=== PATIENT | female | born 1955 | race Caucasian/White ===

== ENCOUNTER 2017-07-09 15:41 | Emergency (ER) | payer OTHER ==
[2017-07-09 15:45] VITALS: RESP 18; TEMP 98.3
[2017-07-09] MEDS ORDERED: oxyCODONE-APAP 5-325MG 1 EACH TAB PO STA (16:12)
--- NOTE | 2017-07-09 16:19 | ED ---
Extremity Problem HPI - General Chief complaint: Extremity Problem,Nontraumatic Stated complaint: Shoulder Pain, hand numbness Time Seen by Provider: 07/09/17 15:46 Source: patient Mode of arrival: wheelchair Limitations: no limitations - History of Present Illness Initial comments: 61-year-old female patient presents to the emergency department today for evaluation of right shoulder pain. Patient states that the pain is radiating down her arm. She states that this pain has been present for the last week. She denies any injury to the arm. Denies any history of similar pain. States he is having some tingling to her fingertips. She denies any neck pain or history of neck problems. States that she is out of her home pain medication has been for the last month. She generally takes Percocet. She does have a past medical history significant for MS but denies any similar symptoms with exacerbations. She denies any chest pain, shortness of breath, nausea, vomiting , dizziness, or weakness. Denies any fevers, chills, or sweats. Denies any rash. Patient denies any recent shortness breath, abdominal pain, diarrhea, constipation, back pain, hematuria, dysuria, urinary urgency, urinary frequency , headache, visual changes, or any other complaints. - Related Data Home Medications Medication Instructions Recorded Confirmed Folic Acid 1 mg PO DAILY 04/08/14 07/09/17 Aspirin EC [Ecotrin Low Dose] 81 mg PO HS 09/23/14 07/09/17 Pravastatin Sodium [Pravachol] 80 mg PO DAILY 04/12/15 07/09/17 Primidone [Mysoline] 50 mg PO BID 04/12/15 07/09/17 Albuterol Nebulized [Ventolin 2.5 mg INHALATION RT-Q4H PRN 04/13/15 07/09/17 Nebulized] Calcium Carb-Vit D 500Mg-200Un 1 tab PO DAILY 04/13/15 07/09/17 [Oscal 500+D] Thiamine [Vitamin B-1] 100 mg PO DAILY 04/13/15 07/09/17 lamoTRIgine [LaMICtal] 150 mg PO HS 04/13/15 07/09/17 ALPRAZolam [Xanax] 0.25 mg PO TID 09/07/15 07/09/17 oxyCODONE HCL/ACETAMINOPHEN 1 tab PO TID 09/07/15 07/09/17 [Oxycodone-Acetaminophen 5-325] ARIPiprazole [Abilify] 10 mg PO DAILY 03/11/17 07/09/17 Gabapentin [Neurontin] 300 mg PO TID 03/11/17 07/09/17 Baclofen [Lioresal] 10 mg PO BID 07/09/17 07/09/17 Butalb/APAP/Caff 50-325-40Mg 1 tab PO Q4H PRN 07/09/17 07/09/17 [Fioricet 50-325-40] Previous Rx's Medication Instructions Recorded Clopidogrel [Plavix] 75 mg PO DAILY #0 02/21/14 Metoprolol Tartrate [Lopressor] 12.5 mg PO BID #60 tab 01/27/15 Omeprazole [PriLOSEC] 20 mg PO AC-BRKFST capsule. 01/27/15 Amiodarone [Cordarone] 200 mg PO DAILY #0 03/13/17 Ipratropium-Albuterol Nebulize 3 ml INHALATION TID #90 ampul.neb 03/13/17 [Duoneb 0.5 mg-3 mg/3 ml Soln] Isosorbide Mononitrate ER [Imdur] 30 mg PO DAILY #30 tab 03/13/17 Levothyroxine Sodium [Synthroid] 100 mcg PO DAILY #30 tab 03/13/17 Nitroglycerin Sl Tabs [Nitrostat] 0.4 mg SUBLINGUAL Q5M PRN #25 tab 03/13/17 Hydrocodone/Acetaminophen [[place] 1 tab PO Q6HR PRN #12 tab 07/09/17 5-325] predniSONE 50 mg PO DAILY #5 tablet 07/09/17 Allergies Allergy/AdvReac Type Severity Reaction Status Date / Time Penicillins Allergy Swelling Verified 07/09/17 16:09 Review of Systems ROS Statement: Those systems with pertinent positive or pertinent negative responses have been documented in the HPI. ROS Other: All systems not noted in ROS Statement are negative. Past Medical History Past Medical History: Coronary Artery Disease (CAD), COPD, Fibromyalgia, Hyperlipidemia, Hypertension, Myocardial Infarction ([place]), Musculoskeletal Disorder, Osteoarthritis (OA), Skin Disorder, Thyroid Disorder Additional Past Medical History / Comment(s): Degenerative disc disease, MS not on medication, neuropathy, AICD, chronic respiratory failure with home O2 dependence at 2-3 L per nasal cannula, left leg cellulitus Last Myocardial Infarction Date:: 2012 History of Any Multi-Drug Resistant Organisms: ESBL Date of last positivie culture/infection: 02/18/2014 MDRO Source:: Blood and Urine E. coli ESBL Past Surgical History: AICD, Appendectomy, Heart Catheterization With Stent, Pacemaker Additional Past Surgical History / Comment(s): ruptured gastric ulcer with surgical repair. LT CATARACT Past Anesthesia/Blood Transfusion Reactions: No Reported Reaction Date of Last Stent Placement:: 2002 Type of Cardiac Device: Permanent Pacemaker, AICD Device Placement Date:: 2011 Past Psychological History: Anxiety, Bipolar, Depression, Panic Disorder Smoking Status: Former smoker Past Alcohol Use History: None Reported Past Drug Use History: None Reported - Past Family History Mother Family Medical History: Musculoskeletal Disorder Additional Family Medical History / Comment(s): MS Sister(s) Family Medical History: Myocardial Infarction ([place]) Additional Family Medical History / Comment(s): SISTER ALSO HAS MS General Exam Limitations: no limitations General appearance: alert, in no apparent distress, other (This is a well- developed, well-nourished adult female patient in no acute distress. Vital signs upon presentation are temperature 98.3F, pulse 62, respirations 18, blood pressure 122/65, pulse ox 94% on room air.) Eye exam: Present: normal appearance, PERRL, EOMI. Absent: scleral icterus, conjunctival injection, periorbital swelling ENT exam: Present: normal exam, normal oropharynx, mucous membranes moist Neck exam: Present: normal inspection, full ROM. Absent: tenderness, meningismus, lymphadenopathy Respiratory exam: Present: normal lung sounds bilaterally. Absent: respiratory distress, wheezes, rales, rhonchi, stridor Cardiovascular Exam: Present: regular rate, normal rhythm, normal heart sounds. Absent: systolic murmur, diastolic murmur, rubs, gallop, clicks Extremities exam: Present: normal inspection, full ROM (Increased pain with movement), tenderness (Right shoulder), normal capillary refill, other (Skin to the right upper extremities pink, warm, and dry. Cap refills less than 3 seconds. Radial pulses 2+ and equal bilaterally.). Absent: pedal edema, joint swelling, calf tenderness Neurological exam: Present: alert, oriented X3, CN II-XII intact Psychiatric exam: Present: normal affect, normal mood Skin exam: Present: warm, dry, intact, normal color. Absent: rash Course Vital Signs 07/09/17 07/09/17 15:42 17:05 Temperature 98.3 F Pulse Rate 62 56 L Respiratory 18 18 Rate Blood Pressure 122/65 137/85 O2 Sat by Pulse 94 L 97 Oximetry Medical Decision Making - Medical Decision Making 61-year-old female patient presented to the emergency department today for evaluation of right shoulder pain 1 week. Physical examination is unremarkable. Patient does have increased pain with movement and tenderness to palpation of the right shoulder. X-ray did show chronic degenerative changes of the right shoulder including chronic tendinopathy at the AC joint. There is a chronic ununited fracture of the right mid clavicular shaft. EKG showed sinus bradycardia with nonspecific ST and T-wave abnormalities. I did discuss findings and results with patient. She is feeling better after receiving Percocet here in the emergency department. She'll be discharged home with a prescription for [place] and prednisone. She is instructed to follow-up with her primary care physician for any further pain medication needs. She is instructed to return here immediately for any new, worsening, or concerning symptoms. She verbalizes understanding and agrees this plan. - EKG Data -: EKG Interpreted by Me EKG Comments: EKG shows sinus bradycardia with nonspecific ST and T-wave abnormalities. Ventricular rate is 54, MS interval 148, QR religion 98, QTC 494, QTC 468. No evidence of ST elevation or depression. - Radiology Data Radiology results: report reviewed, image reviewed 3 views of the right shoulder show chronic ununited fracture deformity of the medial right clavicular shaft. Mild degenerative change at the before meals joint. There is bony irregularity of the greater tuberosity. No acute fracture , subluxation, or dislocation seen. Impression by Dr. Almodovar shows chronic ununited fracture of the medial right clavicular shaft. Chronic rotator cuff tendinopathy and mild before meals joint osteoarthritis. No acute osseous abnormalities seen. Disposition Clinical Impression: Osteoarthritis of right shoulder, Shoulder pain Disposition: HOME SELF-CARE Condition: Good Instructions: Osteoarthritis (ED), Shoulder Pain (ED) Additional Instructions: Apply heat to the right shoulder. Take medications as directed. Take steroid full stomach. Follow-up with her primary care physician tomorrow. Return here immediately for any new, worsening, or concerning symptoms. Prescriptions: Hydrocodone/Acetaminophen [[place] 5-325] 1 tab PO Q6HR PRN #12 tab PRN Reason: Pain predniSONE 50 mg PO DAILY #5 tablet Referrals: Al Monet MD [Primary Care Provider] - 1-2 days Time of Disposition: 17:33
[2017-07-09 17:07] VITALS: BP 137/85; PULSE 56
--- NOTE | 2017-07-09 17:17 | XR ---
EXAMINATION TYPE: XR shoulder complete RT DATE OF EXAM: 07/09/2017 COMPARISON: NONE HISTORY: 61 year-old female shoulder pain for one week TECHNIQUE: 3 views FINDINGS: Chronic ununited fracture deformity of the medial right clavicular shaft. Mild degenerative change at the AC joint. There is bony irregularity at the greater tuberosity. No acute fracture, subluxation, or dislocation seen. IMPRESSION: 1. 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 2. Changes of chronic rotator cuff tendinopathy and mild AC joint OA. 3. No acute osseous abnormality seen.
== END 2017-07-09 17:54 | disposition home or self-care (01) ==
LOC: EC 15:41
DX: M19.011 Primary osteoarthritis, right shoulder (principal); R00.1 Bradycardia, unspecified; I25.10 Atherosclerotic heart disease of native coronary artery without angina pectoris; M79.7 Fibromyalgia; E78.5 Hyperlipidemia, unspecified; I25.2 Old myocardial infarction; F41.0 Panic disorder [episodic paroxysmal anxiety]; F32.9 Major depressive disorder, single episode, unspecified; Z95.0 Presence of cardiac pacemaker; Z95.5 Presence of coronary angioplasty implant and graft; Z87.891 Personal history of nicotine dependence; Z79.82 Long term (current) use of aspirin; Z79.891 Long term (current) use of opiate analgesic; Z79.899 Other long term (current) drug therapy; Z88.0 Allergy status to penicillin
CPT/HCPCS: 93005; 99283

== ENCOUNTER 2018-03-31 19:58 | Observation (INO) | payer OTHER ==
[2018-03-31] MEDS ORDERED: NITROGLYCERIN OINT 1 INCH/GM PACKET TOPICAL STA (20:02)
[2018-03-31] MEDS ORDERED: ASPIRIN 81 MG PO STA (20:02)
--- NOTE | 2018-03-31 20:05 | ED ---
General Adult HPI - General Source: RN notes reviewed <Jones Dewitt - Last Filed: 03/31/18 20:46> <Deangelo Dahl - Last Filed: 03/31/18 22:27> - General Stated complaint: Chest pain Time Seen by Provider: 03/31/18 19:58 - History of Present Illness Initial comments: This is a 62-year-old female who presents emergency Department with a past medical history significant for coronary artery disease to stent placements. Patient states she also smoked up until 4 years ago. Patient comes in today because she's been having intermittent chest pain since last evening. Patient states every time she takes a nitro it gets better but then the pain comes back per patient states she's taken 3 Nitrostat own and one in route. Patient states her pain currently is 5 out of 10. Patient denies any radiation of the pain. Patient states she is mildly short of breath. Patient denies any nausea. Patient denies any recent fever chills or cough per patient has any additional swelling to her legs. Patient denies any calf tenderness. Patient denies abdominal pain patient denies back pain (Jones Dewitt) - Related Data Home Medications Medication Instructions Recorded Confirmed Folic Acid 1 mg PO DAILY 04/08/14 03/31/18 Aspirin EC [Ecotrin Low Dose] 81 mg PO DAILY 09/23/14 03/31/18 Primidone [Mysoline] 50 mg PO BID 04/12/15 03/31/18 Albuterol Nebulized [Ventolin 2.5 mg INHALATION RT-QID PRN 04/13/15 03/31/18 Nebulized] Thiamine [Vitamin B-1] 100 mg PO DAILY 04/13/15 03/31/18 ALPRAZolam [Xanax] 0.25 mg PO TID 09/07/15 03/31/18 oxyCODONE HCL/ACETAMINOPHEN 1 tab PO TID 09/07/15 03/31/18 [Oxycodone-Acetaminophen 5-325] ARIPiprazole [Abilify] 10 mg PO DAILY 03/11/17 03/31/18 Gabapentin [Neurontin] 300 mg PO TID 03/11/17 03/31/18 Baclofen [Lioresal] 10 mg PO BID 07/09/17 03/31/18 Albuterol Inhaler [Ventolin Hfa 1 - 2 puff INHALATION RT-QID PRN 03/31/18 Inhaler] Metoprolol Tartrate [Lopressor] 12.5 mg PO HS 03/31/18 03/31/18 Previous Rx's Medication Instructions Recorded Clopidogrel [Plavix] 75 mg PO DAILY #0 02/21/14 Amiodarone [Cordarone] 200 mg PO DAILY #0 03/13/17 Levothyroxine Sodium [Synthroid] 100 mcg PO DAILY #30 tab 03/13/17 Nitroglycerin Sl Tabs [Nitrostat] 0.4 mg SUBLINGUAL Q5M PRN #25 tab 03/13/17 Allergies Allergy/AdvReac Type Severity Reaction Status Date / Time Penicillins Allergy Swelling Verified 03/31/18 21:11 Review of Systems ROS Other: All systems not noted in ROS Statement are negative. <Jones Dewitt - Last Filed: 03/31/18 20:46> ROS Other: All systems not noted in ROS Statement are negative. <Deangelo Dahl - Last Filed: 03/31/18 22:27> ROS Statement: Those systems with pertinent positive or pertinent negative responses have been documented in the HPI. Past Medical History Past Medical History: Coronary Artery Disease (CAD), COPD, Fibromyalgia, Hyperlipidemia, Hypertension, Myocardial Infarction ([place]), Musculoskeletal Disorder, Osteoarthritis (OA), Skin Disorder, Thyroid Disorder Additional Past Medical History / Comment(s): Degenerative disc disease, MS not on medication, neuropathy, AICD, chronic respiratory failure with home O2 dependence at 2-3 L per nasal cannula, left leg cellulitus Last Myocardial Infarction Date:: 2012 History of Any Multi-Drug Resistant Organisms: ESBL Date of last positivie culture/infection: 02/18/2014 MDRO Source:: Blood and Urine E. coli ESBL Past Surgical History: AICD, Appendectomy, Heart Catheterization With Stent, Pacemaker Additional Past Surgical History / Comment(s): ruptured gastric ulcer with surgical repair. LT CATARACT Past Anesthesia/Blood Transfusion Reactions: No Reported Reaction Date of Last Stent Placement:: 2002 Type of Cardiac Device: Permanent Pacemaker, AICD Device Placement Date:: 2011 Past Psychological History: Anxiety, Bipolar, Depression, Panic Disorder Smoking Status: Former smoker Past Alcohol Use History: None Reported Past Drug Use History: None Reported - Past Family History Mother Family Medical History: Musculoskeletal Disorder Additional Family Medical History / Comment(s): MS Sister(s) Family Medical History: Myocardial Infarction ([place]) Additional Family Medical History / Comment(s): SISTER ALSO HAS MS <DewittJones - Last Filed: 03/31/18 20:46> General Exam <Jones Dewitt - Last Filed: 03/31/18 20:46> <Deangelo Dahl - Last Filed: 03/31/18 22:27> - General Exam Comments Initial Comments: GENERAL: Patient is well-developed and well-nourished. Patient is nontoxic and well- hydrated and is in mild distress. ENT: Neck is soft and supple. No significant lymphadenopathy is noted. Oropharynx is clear. Moist mucous membranes. Neck has full range of motion without eliciting any pain. EYES: The sclera were anicteric and conjunctiva were pink and moist. Extraocular movements were intact and pupils were equal round and reactive to light. Eyelids were unremarkable. PULMONARY: Unlabored respirations. Good breath sounds bilaterally. No audible rales rhonchi or wheezing was noted. CARDIOVASCULAR: There is a regular rate and rhythm without any murmurs gallops or rubs. ABDOMEN: Soft and nontender with normal bowel sounds. No palpable organomegaly was noted. There is no palpable pulsatile mass. SKIN: Skin is clear with no lesions or rashes and otherwise unremarkable. NEUROLOGIC: Patient is alert and oriented x3. Cranial nerves II through XII are grossly intact. Motor and sensory are also intact. Normal speech, volume and content. Symmetrical smile. MUSCULOSKELETAL: Normal extremities with adequate strength and full range of motion. 1+ edema bilaterally LYMPHATICS: No significant lymphadenopathy is noted PSYCHIATRIC: Normal psychiatric evaluation. (Jones Dewitt) Vital Signs 03/31/18 03/31/18 03/31/18 20:03 20:10 20:30 Temperature 99.0 F Pulse Rate 65 Respiratory 18 Rate Blood Pressure 90/64 90/64 91/62 O2 Sat by Pulse 96 93 L 92 L Oximetry 03/31/18 03/31/18 20:40 21:00 Temperature Pulse Rate 80 Respiratory 18 Rate Blood Pressure 102/66 102/66 O2 Sat by Pulse 93 L Oximetry Medical Decision Making - Lab Data Result diagrams: 03/31/18 20:23 <Jones Dewitt - Last Filed: 03/31/18 20:46> - Lab Data Result diagrams: 03/31/18 20:23 03/31/18 20:23 <Deangelo Dahl - Last Filed: 03/31/18 22:27> - Medical Decision Making EKG shows normal sinus rhythm at 60 bpm NV interval is on a 34 QRS is 92 QT interval 438 QTC is 438. Patient's EKG shows Q waves in inferior leads and flattening of the T waves in leads V4 V5 and V6. Dr. Brumfield will be taking over the care of this patient at 9 PM (Jones Dewitt) Receive this patient has a sign out with the troponin pending. Dr. Dewitt had wanted patient to be admitted to have serial cardiac enzymes, telemetry monitoring and cardiology consultation. I did place the orders for admission. ( Deangelo Dahl) - Lab Data Lab Results 03/31/18 03/31/18 03/31/18 Range/Units 20:23 20:23 20:23 WBC 6.4 (3.8-10.6) k/uL RBC 3.67 L (3.80-5.40) m/uL Hgb 11.8 (11.4-16.0) gm/dL Hct 35.7 (34.0-46.0) % MCV 97.5 (80.0-100.0) fL MCH 32.3 (25.0-35.0) pg MCHC 33.1 (31.0-37.0) g/dL RDW 12.8 (11.5-15.5) % Plt Count 189 (150-450) k/uL Neutrophils % 71 % Lymphocytes % 19 % Monocytes % 6 % Eosinophils % 2 % Basophils % 0 % Neutrophils # 4.6 (1.3-7.7) k/uL Lymphocytes # 1.2 (1.0-4.8) k/uL Monocytes # 0.4 (0-1.0) k/uL Eosinophils # 0.1 (0-0.7) k/uL Basophils # 0.0 (0-0.2) k/uL PT (9.0-12.0) sec INR (<1.2) APTT (22.0-30.0) sec Sodium 134 L (137-145) mmol/L Potassium 4.1 (3.5-5.1) mmol/L Chloride 101 (98-107) mmol/L Carbon Dioxide 27 (22-30) mmol/L Anion Gap 6 mmol/L BUN 19 H (7-17) mg/dL Creatinine 0.77 (0.52-1.04) mg/dL Est GFR (CKD-EPI)AfAm >90 (>60 ml/min/1.73 sqM) Est GFR (CKD-EPI)NonAf 83 (>60 ml/min/1.73 sqM) Glucose 84 (74-99) mg/dL Calcium 8.6 (8.4-10.2) mg/dL Magnesium 1.7 (1.6-2.3) mg/dL Total Bilirubin 0.4 (0.2-1.3) mg/dL AST 27 (14-36) U/L ALT 24 (9-52) U/L Alkaline Phosphatase 91 (38-126) U/L Total Creatine Kinase 23 L (30-135) U/L CK-MB (CK-2) 0.7 (0.0-2.4) ng/mL CK-MB (CK-2) Rel Index 3.0 Troponin I <0.012 (0.000-0.034) ng/mL NT-Pro-B Natriuret Pep pg/mL Total Protein 5.4 L (6.3-8.2) g/dL Albumin 2.7 L (3.5-5.0) g/dL 03/31/18 03/31/18 Range/Units 20:23 20:23 WBC (3.8-10.6) k/uL RBC (3.80-5.40) m/uL Hgb (11.4-16.0) gm/dL Hct (34.0-46.0) % MCV (80.0-100.0) fL MCH (25.0-35.0) pg MCHC (31.0-37.0) g/dL RDW (11.5-15.5) % Plt Count (150-450) k/uL Neutrophils % % Lymphocytes % % Monocytes % % Eosinophils % % Basophils % % Neutrophils # (1.3-7.7) k/uL Lymphocytes # (1.0-4.8) k/uL Monocytes # (0-1.0) k/uL Eosinophils # (0-0.7) k/uL Basophils # (0-0.2) k/uL PT 12.5 H (9.0-12.0) sec INR 1.2 H (<1.2) APTT 20.9 L (22.0-30.0) sec Sodium (137-145) mmol/L Potassium (3.5-5.1) mmol/L Chloride (98-107) mmol/L Carbon Dioxide (22-30) mmol/L Anion Gap mmol/L BUN (7-17) mg/dL Creatinine (0.52-1.04) mg/dL Est GFR (CKD-EPI)AfAm (>60 ml/min/1.73 sqM) Est GFR (CKD-EPI)NonAf (>60 ml/min/1.73 sqM) Glucose (74-99) mg/dL Calcium (8.4-10.2) mg/dL Magnesium (1.6-2.3) mg/dL Total Bilirubin (0.2-1.3) mg/dL AST (14-36) U/L ALT (9-52) U/L Alkaline Phosphatase (38-126) U/L Total Creatine Kinase (30-135) U/L CK-MB (CK-2) (0.0-2.4) ng/mL CK-MB (CK-2) Rel Index Troponin I (0.000-0.034) ng/mL NT-Pro-B Natriuret Pep 1350 pg/mL Total Protein (6.3-8.2) g/dL Albumin (3.5-5.0) g/dL Disposition <Jones Dewitt - Last Filed: 03/31/18 20:46> Is patient prescribed a controlled substance at d/c from ED?: No <Deangelo Dahl - Last Filed: 03/31/18 22:27> Clinical Impression: Chest pain Disposition: ADMITTED IP TO THIS HOSP Condition: Good Referrals: Alexei Vera MD [Primary Care Provider] - 1-2 days
[2018-03-31] MEDS ORDERED: SODIUM CHLORIDE 0.9% 500 ML 500 ML IV STA (20:18)
[2018-03-31 20:43] LABS: Basophils % (A) 0 %; Eosinophils # (A) 0.1 k/uL (0-0.7); Eosinophils % (A) 2 %; HCT 35.7 % (34.0-46.0); HGB 11.8 gm/dL (11.4-16.0); Lymphocytes # (A) 1.2 k/uL (1.0-4.8); Lymphocytes % (A) 19 %; MCH 32.3 pg (25.0-35.0); MCHC 33.1 g/dL (31.0-37.0); MCV 97.5 fL (80.0-100.0); Mean Platelet Volume 7.4; Monocytes # (A) 0.4 k/uL (0-1.0); Monocytes % (A) 6 %; Neutrophils # (A) 4.6 k/uL (1.3-7.7); Neutrophils % (A) 71 %; Platelet Count 189 k/uL (150-450); RBC 3.67 m/uL (3.80-5.40); RDW 12.8 % (11.5-15.5); WBC 6.4 k/uL (3.8-10.6)
--- NOTE | 2018-03-31 20:51 | XR ---
EXAMINATION TYPE: XR chest 2V DATE OF EXAM: 03/31/2018 COMPARISON: March 11, 2017 HISTORY: Chest pain TECHNIQUE: Frontal and lateral views of the chest are obtained. FINDINGS: There is no heart failure nor confluent pneumonic infiltrate. Costophrenic angles are donnell r. There is left axillary pacemaker with the lead tip in the right ventricle. There is mild thoracic kyphosis. There is anterior wedging of T11 T7 vertebra. IMPRESSION: Old thoracic compression fractures. No active cardiopulmonary disease. No change.
[2018-03-31 20:54] LABS: ALT 24 U/L (9-52); AST 27 U/L (14-36); Albumin 2.7 g/dL (3.5-5.0); Alkaline Phosphatase 91 U/L (38-126); Anion Gap 6 mmol/L; Blood Urea Nitrogen 19 mg/dL (7-17); Calcium 8.6 mg/dL (8.4-10.2); Carbon Dioxide 27 mmol/L (22-30); Chloride 101 mmol/L (98-107); Glucose 84 mg/dL (74-99); Magnesium 1.7 mg/dL (1.6-2.3); Potassium 4.1 mmol/L (3.5-5.1); Sodium 134 mmol/L (137-145); Total Bilirubin 0.4 mg/dL (0.2-1.3); Total Protein 5.4 g/dL (6.3-8.2)
[2018-03-31 20:59] LABS: INR 1.2 (<1.2); Prothrombin Time 12.5 sec (9.0-12.0)
[2018-03-31 21:03] LABS: Creatine Kinase 23 U/L (30-135); Partial Thromboplastin Time 20.9 sec (22.0-30.0)
[2018-03-31 21:17] LABS: Creatine Kinase MB 0.7 ng/mL (0.0-2.4); Troponin I <0.012 ng/mL (0.000-0.034)
[2018-03-31] MEDS ORDERED: ALBUTEROL NEBULIZED 2.5 MG/3 ML INHALATION PRN (22:24)
[2018-04-01 00:19] VITALS: BMI 29.2
[2018-04-01] MEDS: oxyCODONE-APAP 5-325MG 1 EACH TAB PO PRN ×4 (01:46→22:31)
[2018-04-01 04:05] LABS: Creatine Kinase 27 U/L (30-135)
[2018-04-01 04:16] LABS: Creatine Kinase MB 0.8 ng/mL (0.0-2.4); Troponin I <0.012 ng/mL (0.000-0.034)
[2018-04-01] MEDS: LEVOTHYROXINE 100 MCG TAB PO SCH (05:16)
[2018-04-01] MEDS: ALPRAZolam 0.25 MG TAB PO SCH ×3 (08:51→22:31)
[2018-04-01] MEDS: GABAPENTIN 300 MG CAP PO SCH ×3 (08:51→20:22)
[2018-04-01] MEDS: THIAMINE 100 MG TAB PO SCH (08:51)
[2018-04-01] MEDS: AMIODARONE 200 MG TAB PO SCH (08:52)
[2018-04-01] MEDS: BACLOFEN 10 MG TAB PO SCH ×2 (08:52→20:22)
[2018-04-01] MEDS: PRIMIDONE 50 MG TAB PO SCH ×2 (08:52→20:22)
[2018-04-01] MEDS: CLOPIDOGREL 75 MG TAB PO SCH (08:52)
[2018-04-01] MEDS ORDERED: ASPIRIN 325 MG TAB PO SCH (09:00)
[2018-04-01 09:08] LABS: Cholesterol 118 mg/dL (<200); HDL Cholesterol 59 mg/dL (40-60); LDL Cholesterol,Calculated 48 mg/dL (0-99); Triglycerides 53 mg/dL (<150)
[2018-04-01 09:19] LABS: Creatine Kinase 22 U/L (30-135)
[2018-04-01 09:31] LABS: Creatine Kinase MB 0.8 ng/mL (0.0-2.4); Troponin I <0.012 ng/mL (0.000-0.034)
[2018-04-01] MEDS ORDERED: ONDANSETRON 4 MG/2 ML VIAL IVP PRN (10:03)
[2018-04-01 11:39] LABS: T4, Free (Free Thyroxine) 3.59 ng/dL (0.78-2.19)
[2018-04-01] MEDS: ARIPiprazole 10 MG TAB PO SCH (12:55)
[2018-04-01] MEDS: ISOSORBIDE MONONITRATE ER 30 MG TAB.ER.24H PO SCH (13:05)
[2018-04-01] MEDS: FOLIC ACID 1 MG TAB PO SCH (13:06)
--- NOTE | 2018-04-01 13:10 | HP ---
HISTORY AND PHYSICAL CHIEF COMPLAINT: Chest pain. HISTORY OF PRESENT ILLNESS: This is the first known admission for this 62-year-old white female with history of MS. She presented to the emergency room with chest pain which was not associated with shortness of breath, diaphoresis, etc. She has had a previous [facility] and she has a pacemaker. REVIEW OF SYSTEMS: She has had no CVAs, TIAs, change in vision or hearing, syncope, cough, hemoptysis, pulmonary disease, murmurs, fever, orthopnea, PND, etc. She has had no abdominal pain, vomiting and diarrhea, melena, hematochezia, jaundice, hepatitis, etc. Past medical history, family history, personal history, and social histories reveal that SHE IS ALLERGIC TO PENICILLIN. Surgically she has had surgery for appendectomy, peptic ulcer disease, and several on her feet. PHYSICAL EXAM: Vital signs are normal. Head, ears, eyes, nose, and throat were normal. She is pale. Neck veins not distended. Chest is clear. Cardiac exam is normal. Abdomen is soft and nontender. Extremities demonstrate erythema in the lower legs consistent with possible cellulitis. She was very pale. Neurologically she is intact. IMPRESSION: 1. Chest pain. 2. History of previous myocardial infarction. 3. Dorsal kyphosis. 4. Multiple sclerosis. PLAN: 1. Bed rest. 2. IV fluids. 3. Cardiology consult. 4. Free T4 and TSH. MMODL / IJN: [id number] /
--- NOTE | 2018-04-01 13:10 | PN ---
PROGRESS NOTE CHIEF COMPLAINT: Chest pain. HISTORY OF PRESENT ILLNESS: This lady is feeling better. She has not had any further pain. She awaits Cardiology evaluation. PHYSICAL EXAMINATION: Chest is clear. Cardiac exam is unremarkable. Abdomen is soft, nontender. IMPRESSION: 1. Chest pain. 2. Multiple sclerosis. PLAN: Await Cardiology evaluation. MMODL / IJN: [id number] /
--- NOTE | 2018-04-01 13:48 | P.CRDCN ---
History of Present Illness Consult date: 04/01/18 Reason for Consult (text): chest pain History of present illness: this is a 72-year-old female patient of Dr. Veliz with past medical history of myocardial infarction, ischemic heart disease with cardiomyopathy and stent placement in the right coronary artery. March 2017, patient presented with chest pain and underwent stress test which was negative. Patient now presents with complaints of midsternal lower area chest pain that started while she was at rest. She denies any radiation. She states she has chronic shortness of breath but no worsening. She may have had some nausea. She denies any palpitations. She took 2 nitroglycerin at home and then one was given by EMS and the chest pain is currently resolved. EKG reveals sinus mechanism with old infarct with no acute changes. Chest x-ray reveals no acute cardio pulmonary disease. Laboratory data review: WBC 6.4, hemoglobin 11.8, platelets 189, sodium 134, potassium 4.1, creatinine 0.77 , cardiac enzymes negative on 3 draws. Current cardiac medications include. At the time of my exam: CONSTITUTIONAL: Denies fever. Denies chills. EYES: Denies blurred vision. Denies vision changes. Denies eye pain. EARS, NOSE, MOUTH & THROAT: Denies headache. Denies sore throat. Denies ear pain. CARDIOVASCULAR: Denies chest pain. Denies shortness of breath. Denies orthopnea. Denies PND. Denies palpitations. RESPIRATORY: Denies cough. GASTROINTESTINAL: Denies abdominal pain. Denies diarrhea. Denies constipation. Denies nausea. Denies vomiting. MUSCULOSKELETAL: Denies myalgias. Complains of pain to the left elbow. INTEGUMENTARY: Denies pruitis. Denies rash. NEUROLOGIC: Denies numbness. Denies tingling. Denies weakness. PSYCHIATRIC: Denies anxiety. Denies depression. ENDOCRINE: Denies fatigue. Denies weight change. Denies polydipsia. Denies polyurina. GENITOURINARY: Denies burning, hematuria or urgency with micturation. HEMATOLOGIC: Denies history of anemia. Denies bleeding. Blood pressure [ ], heart rate [ ], afebrile, maintaining oxygen saturation on room air. GENERAL: This is a [ ] in no apparent distress at the time of my examination. HEENT: Head is atraumatic, normocephalic. Pupils are equal, round. Sclerae anicteric. Conjunctivae are clear. Mucous membranes of the mouth are moist. Neck is supple. There is no jugular venous distention. No carotid bruit is heard. LUNGS: Clear to auscultation no wheezes, rales or rhonchi. No chest wall tenderness is noted on palpation or with deep breathing. HEART: Regular rate and rhythm without murmurs, rubs or gallops. S1 and S2 heard. ABDOMEN: Soft, nontender. Bowel sounds are heard. No organomegaly noted. EXTREMITIES: No evidence of lower extremity edema and no calf tenderness noted. VASCULAR: Radial and dorsalis pedis pulses palpated, no evidence of clubbing. NEUROLOGIC: Patient is awake, alert and oriented x3. No focal neuro deficits. ASSESSMENT Chest pain, atypical. An acute coronary event has been ruled out. History of coronary artery diseasewith previous AR and stent in the RCA. Hypertension hyperlipidemia Ischemic heart disease with cardiomyopathy PLAN An acute coronary event has been ruled out. echocardiogram ordered aspirin will be changed to 81 mg Continue amiodarone 200 mg daily, Plavix 75 mg daily, Lopressor 12.5 mg at bedtime Thank you kindly for this consultation. Nurse Practitioner note has been reviewed, I agree with a documented findings and plan of care. Patient was seen and examined. Past Medical History Past Medical History: Coronary Artery Disease (CAD), COPD, Fibromyalgia, Hyperlipidemia, Hypertension, Myocardial Infarction (AR), Musculoskeletal Disorder, Osteoarthritis (OA), Skin Disorder, Thyroid Disorder Additional Past Medical History / Comment(s): Degenerative disc disease, MS not on medication, neuropathy, AICD, chronic respiratory failure with home O2 dependence at 2-3 L per nasal cannula, left leg cellulitus Last Myocardial Infarction Date:: 2012 History of Any Multi-Drug Resistant Organisms: ESBL Date of last positivie culture/infection: 02/18/2014 MDRO Source:: Blood and Urine E. coli ESBL Past Surgical History: AICD, Appendectomy, Heart Catheterization With Stent, Pacemaker Additional Past Surgical History / Comment(s): ruptured gastric ulcer with surgical repair. LT CATARACT Past Anesthesia/Blood Transfusion Reactions: No Reported Reaction Date of Last Stent Placement:: 2002 Type of Cardiac Device: Permanent Pacemaker, AICD Device Placement Date:: 2011 Smoking Status: Former smoker - Past Family History Mother Family Medical History: Musculoskeletal Disorder Additional Family Medical History / Comment(s): MS Sister(s) Family Medical History: Myocardial Infarction (AR) Additional Family Medical History / Comment(s): SISTER ALSO HAS MS Medications and Allergies Home Medications Medication Instructions Recorded Confirmed Type Clopidogrel [Plavix] 75 mg PO DAILY #0 02/21/14 03/31/18 Rx Folic Acid 1 mg PO DAILY 04/08/14 03/31/18 History Aspirin EC [Ecotrin Low Dose] 81 mg PO DAILY 09/23/14 03/31/18 History Primidone [Mysoline] 50 mg PO BID 04/12/15 03/31/18 History Albuterol Nebulized [Ventolin 2.5 mg INHALATION RT-QID PRN 04/13/15 03/31/18 History Nebulized] Thiamine [Vitamin B-1] 100 mg PO DAILY 04/13/15 03/31/18 History ALPRAZolam [Xanax] 0.25 mg PO TID 09/07/15 03/31/18 History oxyCODONE HCL/ACETAMINOPHEN 1 tab PO TID 09/07/15 03/31/18 History [Oxycodone-Acetaminophen 5-325] ARIPiprazole [Abilify] 10 mg PO DAILY 03/11/17 03/31/18 History Gabapentin [Neurontin] 300 mg PO TID 03/11/17 03/31/18 History Amiodarone [Cordarone] 200 mg PO DAILY #0 03/13/17 03/31/18 Rx Levothyroxine Sodium [Synthroid] 100 mcg PO DAILY #30 tab 03/13/17 03/31/18 Rx Nitroglycerin Sl Tabs [Nitrostat] 0.4 mg SUBLINGUAL Q5M PRN #25 tab 03/13/17 Rx Baclofen [Lioresal] 10 mg PO BID 07/09/17 03/31/18 History Albuterol Inhaler [Ventolin Hfa 1 - 2 puff INHALATION RT-QID PRN 03/31/18 History Inhaler] Metoprolol Tartrate [Lopressor] 12.5 mg PO HS 03/31/18 03/31/18 History Allergies Allergy/AdvReac Type Severity Reaction Status Date / Time Penicillins Allergy Swelling Verified 03/31/18 21:11 Physical Exam Vitals: Vital Signs Temp Pulse Pulse Resp BP BP Pulse Ox 04/01/18 09:12 97 04/01/18 03:21 98.2 F 65 18 115/63 97 04/01/18 00:11 98.6 F 60 18 114/73 96 03/31/18 23:57 98.7 F 03/31/18 23:41 66 18 122/73 97 03/31/18 22:00 67 18 108/66 96 03/31/18 21:00 80 18 102/66 93 L 03/31/18 20:40 102/66 03/31/18 20:30 91/62 92 L 03/31/18 20:10 90/64 93 L 03/31/18 20:03 99.0 F 65 18 90/64 96 Intake and Output 03/31/18 04/01/18 04/01/18 22:59 06:59 14:59 Other: Voiding Method Bedside Commode # Voids 1 Weight 70.307 kg 63 kg Results 03/31/18 20:23 03/31/18 20:23 Cardiac Enzymes 03/31/18 03/31/18 04/01/18 Range/Units 20:23 20:23 03:11 AST 27 (14-36) U/L CK-MB (CK-2) 0.7 0.8 (0.0-2.4) ng/mL Troponin I <0.012 <0.012 (0.000-0.034) ng/mL 04/01/18 Range/Units 08:21 AST (14-36) U/L CK-MB (CK-2) 0.8 (0.0-2.4) ng/mL Troponin I <0.012 (0.000-0.034) ng/mL Coagulation 03/31/18 Range/Units 20:23 PT 12.5 H (9.0-12.0) sec APTT 20.9 L (22.0-30.0) sec Lipids 04/01/18 Range/Units 08:21 Triglycerides 53 (<150) mg/dL Cholesterol 118 (<200) mg/dL HDL Cholesterol 59 (40-60) mg/dL CBC 03/31/18 Range/Units 20:23 WBC 6.4 (3.8-10.6) k/uL RBC 3.67 L (3.80-5.40) m/uL Hgb 11.8 (11.4-16.0) gm/dL Hct 35.7 (34.0-46.0) % Plt Count 189 (150-450) k/uL Comprehensive Metabolic Panel 03/31/18 Range/Units 20:23 Sodium 134 L (137-145) mmol/L Potassium 4.1 (3.5-5.1) mmol/L Chloride 101 (98-107) mmol/L Carbon Dioxide 27 (22-30) mmol/L BUN 19 H (7-17) mg/dL Creatinine 0.77 (0.52-1.04) mg/dL Glucose 84 (74-99) mg/dL Calcium 8.6 (8.4-10.2) mg/dL AST 27 (14-36) U/L ALT 24 (9-52) U/L Alkaline Phosphatase 91 (38-126) U/L Total Protein 5.4 L (6.3-8.2) g/dL Albumin 2.7 L (3.5-5.0) g/dL Current Medications Generic Name Dose Route Start Last Admin Trade Name Freq PRN Reason Stop Dose Admin Albuterol Sulfate 2.5 mg 03/31/18 22:24 Ventolin Nebulized INHALATION RT-QID PRN Shortness Of Breath Alprazolam 0.25 mg 04/01/18 09:00 04/01/18 08:51 Xanax PO 0.25 mg TID SID Administration Amiodarone HCl 200 mg 04/01/18 09:00 04/01/18 08:52 Cordarone PO 200 mg DAILY SID Administration Aripiprazole 10 mg 04/01/18 09:00 Abilify PO DAILY SID Aspirin 325 mg 04/01/18 09:00 04/01/18 08:51 Aspirin PO 325 mg DAILY SID Administration Baclofen 10 mg 04/01/18 09:00 04/01/18 08:52 Lioresal PO 10 mg BID SID Administration Clopidogrel Bisulfate 75 mg 04/01/18 09:00 04/01/18 08:52 Plavix PO 75 mg DAILY SID Administration Folic Acid 1 mg 04/01/18 12:00 Folic Acid PO DAILY@1200 SID Gabapentin 300 mg 04/01/18 09:00 04/01/18 08:51 Neurontin PO 300 mg TID SID Administration Levothyroxine Sodium 100 mcg 04/01/18 06:30 04/01/18 05:16 Synthroid PO 100 mcg DAILY@0630 SID Administration Metoprolol Tartrate 12.5 mg 04/01/18 21:00 Lopressor PO HS [facility] Nitroglycerin 0.4 mg 03/31/18 22:22 Nitrostat SUBLINGUAL Q5M PRN Chest Pain Ondansetron HCl 4 mg 04/01/18 10:03 Zofran IVP Q6HR PRN Nausea And Vomiting Oxycodone/Acetaminophen 1 each 04/01/18 09:00 04/01/18 08:56 Percocet 5-325 PO 1 each TID PRN Administration Pain Primidone 50 mg 04/01/18 09:00 04/01/18 08:52 Mysoline PO 50 mg BID SID Administration Sodium Chloride 10 ml 04/01/18 09:00 Saline Flush IV BID [facility] Thiamine HCl 100 mg 04/01/18 09:00 04/01/18 08:51 Vitamin B-1 PO 100 mg DAILY SID Administration Intake and Output 03/31/18 04/01/18 04/01/18 22:59 06:59 14:59 Other: Voiding Method Bedside Commode # Voids 1 Weight 70.307 kg 63 kg 03/31/18 20:23 03/31/18 20:23
[2018-04-01] MEDS: NITROGLYCERIN SL TABS 0.4 MG TAB SUBLINGUAL PRN (15:36)
[2018-04-01] MEDS: METOPROLOL TARTRATE 25 MG TAB PO SCH (20:22)
[2018-04-02] MEDS: LEVOTHYROXINE 100 MCG TAB PO SCH (06:17)
[2018-04-02] MEDS: oxyCODONE-APAP 5-325MG 1 EACH TAB PO PRN ×2 (06:17→18:44)
[2018-04-02] MEDS: ALPRAZolam 0.25 MG TAB PO SCH ×3 (08:32→23:32)
[2018-04-02] MEDS: ARIPiprazole 10 MG TAB PO SCH (08:32)
[2018-04-02] MEDS: ASPIRIN 81 MG PO SCH (08:32)
[2018-04-02] MEDS: BACLOFEN 10 MG TAB PO SCH ×2 (08:33→20:22)
[2018-04-02] MEDS: CLOPIDOGREL 75 MG TAB PO SCH (08:33)
[2018-04-02] MEDS: THIAMINE 100 MG TAB PO SCH (08:33)
[2018-04-02] MEDS: PRIMIDONE 50 MG TAB PO SCH ×2 (08:33→20:21)
[2018-04-02] MEDS: FOLIC ACID 1 MG TAB PO SCH (08:33)
[2018-04-02] MEDS: GABAPENTIN 300 MG CAP PO SCH ×3 (08:33→23:32)
[2018-04-02] MEDS: AMIODARONE 200 MG TAB PO SCH (08:33)
[2018-04-02] MEDS: ISOSORBIDE MONONITRATE ER 30 MG TAB.ER.24H PO SCH (08:33)
[2018-04-02] MEDS: NITROGLYCERIN SL TABS 0.4 MG TAB SUBLINGUAL PRN ×2 (11:14→11:19)
--- NOTE | 2018-04-02 14:55 | ECHOF ---
Referral Reason:heart disease MEASUREMENTS -------- HEIGHT: 152.4 cm WEIGHT: 62.6 kg BP: 145/75 IVSd: 1.1 cm (0.6 - 1.1) LVIDd: 4.1 cm (3.9 - 5.3) LVPWd: 1.1 cm (0.6 - 1.1) IVSs: 1.4 cm LVIDs: 2.9 cm LVPWs: 1.7 cm LA Diam: 3.4 cm (2.7 - 3.8) Ao Diam: 3.0 cm (2.0 - 3.7) LA Diam: 3.7 cm (2.7 - 3.8) MV EXCURSION: 11.800 mm (> 18.000) MV EF SLOPE: 46 mm/s (70 - 150) EPSS: 1.8 cm MV E Da: 0.28 m/s MV DecT: 330 ms MV A Da: 0.50 m/s MV E/A Ratio: 0.55 RAP: 5.00 mmHg RVSP: 11.51 mmHg FINDINGS -------- Paced rhythm. This was a techncally difficult study with suboptimal views, , Lumason utilized for enhancement of im ages. The left ventricular size is normal. Left ventricular wall thickness is normal. Overall left vent ricular systolic function is mild-moderately impaired with, an EF between 40 - 45 %. Inferiorlatera l Hypokinesis Inferior basal Hypokinesis The right ventricle is normal in size. The left atrial size is normal. The right atrial size is normal. 5.0mg OF Lumason UTLIZED: 2 OR MORE WALL SEGMENTS NOT VISUALIZED. There is mild aortic valve sclerosis. There is no evidence of aortic regurgitation. Mild mitral regurgitation is present. Mild tricuspid regurgitation present. There is no evidence of pulmonary hypertension. The right v entricular systolic pressure, as measured by Doppler, is 11.51mmHg. The pulmonic valve was not well visualized. The aortic root size is normal. There is no pericardial effusion. CONCLUSIONS -------- 1. This was a techncally difficult study with suboptimal views, , Lumason utilized for enhancement of images. 2. The left ventricular size is normal. 3. Left ventricular wall thickness is normal. 4. Overall left ventricular systolic function is mild-moderately impaired with, an EF between 40 - 45 %. 5. Inferiorlateral Hypokinesis 6. Inferior basal Hypokinesis 7. The right ventricle is normal in size. 8. The left atrial size is normal. 9. The right atrial size is normal. 10. 5.0mg OF Lumason UTLIZED: 2 OR MORE WALL SEGMENTS NOT VISUALIZED. 11. There is mild aortic valve sclerosis. 12. Mild mitral regurgitation is present. 13. Mild tricuspid regurgitation present. 14. There is no evidence of pulmonary hypertension. 15. The right ventricular systolic pressure, as measured by Doppler, is 11.51mmHg. 16. The pulmonic valve was not well visualized. 17. The aortic root size is normal. 18. There is no pericardial effusion. DIGITAL ANALYST: Sheila Bess RDCS
--- NOTE | 2018-04-02 15:04 | P.PN ---
Subjective Progress Note Date: 04/02/18 This is a 62-year-old female with history of known ischemic heart disease with previous stent placement, was admitted with atypical chest pains. Her cardiac enzymes have been negative. EKG did not reveal any acute changes. Patient had vague chest pain as today and took 2 nitroglycerin with some relief. Pain is gradually is improving. Echo Cardigan showed hypokinesis of the inferior segments with an ejection fraction of about 45%. We'll continue monitor her. If she doesn't have any chest pains over the last 24 hours, patient may be discharged home and have follow-up with Dr. Boyce. If she has any recurrence of chest pain, patient may need inpatient evaluation. Her EKG today showed sinus rhythm with evidence of old inferior wall CO and nonspecific changes in anterolateral leads, as before. Objective - Vital Signs Vital signs: Vital Signs Temp 97.2 F L 04/02/18 11:15 Pulse 68 04/02/18 14:57 Resp 16 04/02/18 14:57 BP 100/55 04/02/18 11:22 Pulse Ox 94 L 04/02/18 14:58 Intake & Output 04/01/18 04/02/18 04/02/18 18:59 06:59 18:59 Intake Total 460 480 Output Total 400 400 300 Balance 60 -400 180 Weight 63 kg Intake: Oral 460 480 Output: Urine 400 400 300 Other: Voiding Method Bedside Commode Bedside Commode # Voids 1 1 - Exam GENERAL EXAM: Patient is alert and oriented and doesn't appear to be in any acute distress HEENT: Normocephalic. Normal reaction of pupils, equal size, normal range of extraocular motion. No erythema or exudates in the throat. NECK: No masses, no nuchal rigidity. CHEST: No chest wall deformity. LUNGS: Equal air entry with no crackles or wheeze. HEART: S1 and S2 normal with no audible mumurs or gallops. Regular rhythm, femorals equal on both sides.. ABDOMEN: No hepatosplenomegaly, normal bowel sounds, no guarding or rigidity. SKIN: No rashes CENTRAL NERVOUS SYSTEM: No focal deficits. EXTREMITIES: No cyanosis, clubbing or edema. - Labs CBC & Chem 7: 03/31/18 20:23 03/31/18 20:23 Assessment and Plan (1) Chest pain Current Visit: Yes Status: Acute Code(s): R07.9 - CHEST PAIN, UNSPECIFIED SNOMED Code(s): 89328211 (2) CAD (coronary artery disease) Current Visit: No Status: Acute Code(s): I25.10 - ATHSCL HEART DISEASE OF [place] CORONARY ARTERY W/O ANG PCTRS SNOMED Code(s): 04367765 Plan: We'll continue to monitor her. Increase activity as tolerated. Patient doesn' t have any recurrence of chest pain, may be discharged home to have follow-up with Dr. Boyce. If she has any recurrence of chest pain, may need inpatient evaluation
[2018-04-02] MEDS ORDERED: NITROGLYCERIN SL TABS 0.4 MG TAB SUBLINGUAL PRN (15:10)
[2018-04-02] MEDS: PANTOPRAZOLE 40 MG TABLET PO SCH (16:25)
[2018-04-02] MEDS: METOPROLOL TARTRATE 25 MG TAB PO SCH (20:21)
--- NOTE | 2018-04-02 21:08 | PN ---
PROGRESS NOTE CHIEF COMPLAINT: Chest pain. HISTORY OF PRESENT ILLNESS: This lady is complaining of quite a bit of indigestion, but other than that she has been stable. REVIEW OF SYSTEMS: She has had no fever, chills, nausea, vomiting, etc. PHYSICAL EXAM: Blood pressure is 100/55 with a pulse of 68 and respirations are 16. In general, she appears to be pale, but in no acute distress. Head, ears, eyes, nose, mouth, and throat are normal. Chest is clear. The cardiac exam is normal and. Abdomen is soft and nontender. IMPRESSION: 1. Chest pain. 2. Mild anemia. 3. Multiple sclerosis. 4. History of coronary artery disease. PLAN: Protonix 40 mg b.i.d. and it sounds as though she is going to be cleared to go home tomorrow. MMODL / IJN: [id number] /
[2018-04-03 01:55] VITALS: RESP 17
[2018-04-03 04:25] VITALS: PULSE 70
[2018-04-03] MEDS: oxyCODONE-APAP 5-325MG 1 EACH TAB PO PRN (05:15)
[2018-04-03] MEDS: PANTOPRAZOLE 40 MG TABLET PO SCH (06:16)
[2018-04-03] MEDS ORDERED: LEVOTHYROXINE 50 MCG TAB PO SCH (06:30)
[2018-04-03 07:15] LABS: Anion Gap 5 mmol/L; Blood Urea Nitrogen 13 mg/dL (7-17); Calcium 8.1 mg/dL (8.4-10.2); Carbon Dioxide 29 mmol/L (22-30); Chloride 94 mmol/L (98-107); Glucose 92 mg/dL (74-99); Potassium 3.7 mmol/L (3.5-5.1); Sodium 128 mmol/L (137-145)
[2018-04-03] MEDS: ARIPiprazole 10 MG TAB PO SCH (07:54)
[2018-04-03] MEDS: GABAPENTIN 300 MG CAP PO SCH (07:54)
[2018-04-03] MEDS: ALPRAZolam 0.25 MG TAB PO SCH (07:54)
[2018-04-03] MEDS: ASPIRIN 81 MG PO SCH (07:54)
[2018-04-03] MEDS: THIAMINE 100 MG TAB PO SCH (07:54)
[2018-04-03] MEDS: CLOPIDOGREL 75 MG TAB PO SCH (07:54)
[2018-04-03] MEDS: PRIMIDONE 50 MG TAB PO SCH (07:55)
[2018-04-03] MEDS: ISOSORBIDE MONONITRATE ER 30 MG TAB.ER.24H PO SCH (07:55)
[2018-04-03] MEDS: AMIODARONE 200 MG TAB PO SCH (07:55)
[2018-04-03] MEDS: BACLOFEN 10 MG TAB PO SCH (07:55)
[2018-04-03 07:58] VITALS: BP 129/71; TEMP 97.2
[2018-04-03 08:42] LABS: Basophils % (A) 0 %; Eosinophils # (A) 0.1 k/uL (0-0.7); Eosinophils % (A) 2 %; HGB 11.5 gm/dL (11.4-16.0); Lymphocytes # (A) 1.3 k/uL (1.0-4.8); Lymphocytes % (A) 23 %; MCHC 32.8 g/dL (31.0-37.0); MCV 97.5 fL (80.0-100.0); Mean Platelet Volume 8.2; Monocytes # (A) 0.3 k/uL (0-1.0); Monocytes % (A) 6 %; Neutrophils # (A) 3.8 k/uL (1.3-7.7); Neutrophils % (A) 67 %; Platelet Count 192 k/uL (150-450); RBC 3.59 m/uL (3.80-5.40); RDW 12.7 % (11.5-15.5); WBC 5.7 k/uL (3.8-10.6)
[2018-04-03] MEDS ORDERED: ASPIRIN 81 MG PO SCH (09:00)
--- NOTE | 2018-04-03 12:55 | P.PN ---
Subjective Progress Note Date: 04/03/18 This is a 62-year-old female with history of known ischemic heart disease with previous stent placement, was admitted with atypical chest pains. Her cardiac enzymes have been negative. EKG did not reveal any acute changes. Patient had vague chest pain as today and took 2 nitroglycerin with some relief. Pain is gradually is improving. Echo Cardigan showed hypokinesis of the inferior segments with an ejection fraction of about 45%. We'll continue monitor her. If she doesn't have any chest pains over the last 24 hours, patient may be discharged home and have follow-up with Dr. Boyce. If she has any recurrence of chest pain, patient may need inpatient evaluation. Her EKG today showed sinus rhythm with evidence of old inferior wall MA and nonspecific changes in anterolateral leads, as before. 04/03/2018: This patient with history of ischemic heart disease admitted with atypical chest pain. For the last 24 hours, Patient hasn't had any recurrence of chest pain. Her lab values showed a mild hyponatremia. Patient is otherwise doing well and wants to go home. Patient is being discharged home to have follow-up with Dr. Boyce. She'll continue current medical therapy Objective - Vital Signs Vital signs: Vital Signs Temp 97.2 F L 04/03/18 07:50 Pulse 70 04/03/18 07:52 Resp 17 04/03/18 07:52 BP 129/71 04/03/18 07:50 Pulse Ox 95 04/03/18 07:50 Intake & Output 04/02/18 04/03/18 04/03/18 18:59 06:59 18:59 Intake Total 480 800 260 Output Total 300 Balance 180 800 260 Weight 63.4 kg Intake: Oral 480 800 260 Output: Urine 300 Other: Voiding Method Bedside Commode Bedside Commode Bedside Commode # Voids 1 2 - Exam GENERAL EXAM: Patient is alert and oriented and doesn't appear to be in any acute distress HEENT: Normocephalic. Normal reaction of pupils, equal size, normal range of extraocular motion. No erythema or exudates in the throat. NECK: No masses, no nuchal rigidity. CHEST: No chest wall deformity. LUNGS: Equal air entry with no crackles or wheeze. HEART: S1 and S2 normal with no audible mumurs or gallops. Regular rhythm, femorals equal on both sides.. ABDOMEN: No hepatosplenomegaly, normal bowel sounds, no guarding or rigidity. SKIN: No rashes CENTRAL NERVOUS SYSTEM: No focal deficits. EXTREMITIES: No cyanosis, clubbing or edema. - Labs CBC & Chem 7: 04/03/18 06:00 04/03/18 06:00 Labs: Abnormal Lab Results - Last 24 Hours (Table) 04/03/18 04/03/18 Range/Units 06:00 06:00 RBC 3.59 L (3.80-5.40) m/uL Sodium 128 L (137-145) mmol/L Chloride 94 L (98-107) mmol/L Calcium 8.1 L (8.4-10.2) mg/dL Assessment and Plan (1) Chest pain Status: Acute Code(s): R07.9 - CHEST PAIN, UNSPECIFIED SNOMED Code(s): 79260656 (2) CAD (coronary artery disease) Status: Acute Code(s): I25.10 - ATHSCL HEART DISEASE OF [place] CORONARY ARTERY W/O ANG PCTRS SNOMED Code(s): 07430016 Plan: Patient seemed to be stable today. No recurrence of chest pain. Wants to go home. Patient is being discharged to have follow-up with Dr. Boyce
--- NOTE | 2018-04-04 18:22 | DS ---
DISCHARGE SUMMARY DATE OF DISCHARGE: 04/03/2018 CHIEF COMPLAINT: Chest pain. HISTORY OF PRESENT ILLNESS AND PHYSICAL EXAMINATION: The details of this lady's history and physical can be found in the initial workup. LABORATORY STUDIES: While she was in the hospital she had laboratory studies, details of which can be found in the laboratory section of her chart. COURSE IN THE HOSPITAL: After admission she was placed on bedrest, started on intravenous fluids and had serial EKGs and enzymes. Because of her prior history of heart disease, she was seen and followed by Cardiology. It was felt that she was stable enough to be discharged on April 03, and she will return home on her usual activity, diet and medication, and she will follow up either with her own physician or with me. FINAL DIAGNOSES: 1. Chest pain. 2. Coronary artery disease. 3. Multiple sclerosis. OPERATIONS: None. CONSULTATIONS: Cardiology. She is improved. MMBOBBY / CESILIA: [id number] /
== END 2018-04-03 12:27 | disposition home or self-care (01) ==
LOC: EC 19:58 → 3SCARD 22:22
PROVIDERS: ADMIT Family Medicine; ATTEND Family Medicine
DX: R07.89 Other chest pain (principal); G35 Multiple sclerosis; I25.10 Atherosclerotic heart disease of native coronary artery without angina pectoris; I42.9 Cardiomyopathy, unspecified; E87.1 Hypo-osmolality and hyponatremia; M79.7 Fibromyalgia; J96.10 Chronic respiratory failure, unspecified whether with hypoxia or hypercapnia; J44.9 Chronic obstructive pulmonary disease, unspecified; Z99.81 Dependence on supplemental oxygen; I10 Essential (primary) hypertension; E78.5 Hyperlipidemia, unspecified; M19.90 Unspecified osteoarthritis, unspecified site; G62.9 Polyneuropathy, unspecified; M40.204 Unspecified kyphosis, thoracic region; F41.0 Panic disorder [episodic paroxysmal anxiety]; F31.9 Bipolar disorder, unspecified; F41.9 Anxiety disorder, unspecified; K30 Functional dyspepsia; D64.9 Anemia, unspecified; Z79.02 Long term (current) use of antithrombotics/antiplatelets; Z79.82 Long term (current) use of aspirin; Z79.890 Hormone replacement therapy; Z79.891 Long term (current) use of opiate analgesic; Z79.899 Other long term (current) drug therapy; Z88.0 Allergy status to penicillin; Z95.0 Presence of cardiac pacemaker; Z16.12 Extended spectrum beta lactamase (ESBL) resistance; I25.2 Old myocardial infarction; Z95.5 Presence of coronary angioplasty implant and graft; Z87.891 Personal history of nicotine dependence; Z95.810 Presence of automatic (implantable) cardiac defibrillator; Z90.49 Acquired absence of other specified parts of digestive tract; Z98.42 Cataract extraction status, left eye; Z87.11 Personal history of peptic ulcer disease; Z82.69 Family history of other diseases of the musculoskeletal system and connective tissue; Z82.49 Family history of ischemic heart disease and other diseases of the circulatory system
CPT/HCPCS: 96374; 96361; 99285; 36415; 94760; 93005; 84439; 83880; 80061; 80053; 80048; 84443; 82550 ×2; 82553 ×2; 83735; 84484 ×2; 85025 ×2; 85610; 85730; 71046; G0378 ×4; C8929; J2405; Q9950; 93306

== ENCOUNTER 2018-09-27 06:59 | Observation (INO) | payer OTHER ==
[2018-09-27] MEDS ORDERED: NITROGLYCERIN OINT 1 INCH/GM PACKET TOPICAL STA (07:08)
--- NOTE | 2018-09-27 07:13 | ED ---
Chest Pain HPI - General Chief Complaint: Chest Pain Stated Complaint: Chest pressure Time Seen by Provider: 09/27/18 07:00 Source: patient, EMS, RN notes reviewed Mode of arrival: EMS Limitations: no limitations - History of Present Illness Initial Comments: This is a 63-year-old female history of multiple medical problems including coronary artery disease and multiple sclerosis who states she started having anterior chest pain about 12 hours ago. He states it was fairly severe up to 8/10 severity pressure nature with some nausea. She fine called 911 and was brought to the hospital she received aspirin and nitroglycerin as well as some Zofran and route to. She felt improved and did drop down to about a 5 is starting to go back up again she states. She wasn't sure whether was an MS exacerbation versus coronary artery disease that she waited. No other modifying factors at this time. No cough or phlegm production no focal weakness is gen eralized weakness. MD Complaint: chest pain, other - Related Data Home Medications Medication Instructions Recorded Confirmed Folic Acid 1 mg PO DAILY 04/08/14 03/31/18 Aspirin EC [Ecotrin Low Dose] 81 mg PO DAILY 09/23/14 09/27/18 Primidone [Mysoline] 50 mg PO BID 04/12/15 03/31/18 Albuterol Nebulized [Ventolin 2.5 mg INHALATION RT-QID PRN 04/13/15 03/31/18 Nebulized] Thiamine [Vitamin B-1] 100 mg PO DAILY 04/13/15 03/31/18 ALPRAZolam [Xanax] 0.25 mg PO TID 09/07/15 09/27/18 oxyCODONE HCL/ACETAMINOPHEN 1 tab PO Q8H 09/07/15 09/27/18 [Oxycodone-Acetaminophen 5-325] ARIPiprazole [Abilify] 10 mg PO DAILY 03/11/17 03/31/18 Gabapentin [Neurontin] 300 mg PO TID 03/11/17 09/27/18 Baclofen [Lioresal] 10 mg PO BID 07/09/17 03/31/18 Albuterol Inhaler [Ventolin Hfa 1 - 2 puff INHALATION RT-QID PRN 03/31/18 09/27/18 Inhaler] Metoprolol Tartrate [Lopressor] 25 mg PO DAILY 03/31/18 09/27/18 Cholecalciferol (Vitamin D3) 2,000 unit PO DAILY 09/27/18 09/27/18 [Vitamin D3] Docusate [Colace] 100 mg PO DAILY 09/27/18 09/27/18 Ferrous Sulfate [Feosol] 325 mg PO BID 09/27/18 09/27/18 Fluticasone Nasal [place] [Flonase 2 spr EA NOSTRIL DAILY 09/27/18 09/27/18 Nasal [place]] Fluticasone/Salmeterol 1 puff INHALATION RT-DAILY 09/27/18 09/27/18 [Fluticasone-Salmeterol 113-14] Levothyroxine Sodium [Synthroid] 100 mcg PO DAILY 09/27/18 09/27/18 Loperamide HCl [Imodium A-D] 2 mg PO DAILY PRN 09/27/18 09/27/18 Meclizine [Antivert] 25 mg PO TID 09/27/18 09/27/18 Sodium Chloride Tab 1 gm PO BID 09/27/18 09/27/18 Previous Rx's Medication Instructions Recorded Clopidogrel [Plavix] 75 mg PO DAILY #0 02/21/14 Amiodarone [Cordarone] 200 mg PO DAILY #0 03/13/17 Isosorbide Mononitrate ER [Imdur] 30 mg PO DAILY #30 tab.er.24h 04/03/18 Nitroglycerin Sl Tabs [Nitrostat] 0.4 mg SUBLINGUAL Q5M PRN #20 tab 04/03/18 Pantoprazole [Protonix] 40 mg PO DAILY #30 tablet. 04/03/18 Allergies Allergy/AdvReac Type Severity Reaction Status Date / Time Penicillins Allergy Swelling Verified 09/27/18 08:13 Review of Systems ROS Statement: Those systems with pertinent positive or pertinent negative responses have been documented in the HPI. ROS Other: All systems not noted in ROS Statement are negative. EKG Findings - EKG Results: EKG: interpreted by DEDE, sinus rhythm (Sinus rhythm of 66 MS interval 166 QRS duration 66 QT/QTC 384/402 low-voltage QRS nonspecific inferior configuration. This is compared with EKG dated 04/01/18 showing no changes.) Past Medical History Past Medical History: Coronary Artery Disease (CAD), COPD, Fibromyalgia, Hyperlipidemia, Hypertension, Myocardial Infarction ([place]), Musculoskeletal Disorder, Osteoarthritis (OA), Skin Disorder, Thyroid Disorder Additional Past Medical History / Comment(s): Degenerative disc disease, MS not on medication, neuropathy, AICD, chronic respiratory failure with home O2 dependence at 2-3 L per nasal cannula, left leg cellulitus Last Myocardial Infarction Date:: 2012 History of Any Multi-Drug Resistant Organisms: ESBL Date of last positivie culture/infection: 02/18/2014 MDRO Source:: Blood and Urine E. coli ESBL Past Surgical History: AICD, Appendectomy, Heart Catheterization With Stent, Pacemaker Additional Past Surgical History / Comment(s): ruptured gastric ulcer with surgical repair. LT CATARACT Past Anesthesia/Blood Transfusion Reactions: No Reported Reaction Date of Last Stent Placement:: 2002 Type of Cardiac Device: Permanent Pacemaker, AICD Device Placement Date:: 2011 Past Psychological History: Anxiety, Bipolar, Depression, Panic Disorder Smoking Status: Former smoker Past Alcohol Use History: None Reported Past Drug Use History: None Reported - Past Family History Mother Family Medical History: Musculoskeletal Disorder Additional Family Medical History / Comment(s): MS Sister(s) Family Medical History: Myocardial Infarction ([place]) Additional Family Medical History / Comment(s): SISTER ALSO HAS MS General Exam - General Exam Comments Initial Comments: This a well-developed sec appearing female who is awake alert oriented 3 Limitations: no limitations General appearance: alert, anxious Head exam: Present: atraumatic, normocephalic, normal inspection Eye exam: Present: normal appearance, PERRL, EOMI. Absent: scleral icterus, conjunctival injection, periorbital swelling ENT exam: Present: normal exam, mucous membranes moist Neck exam: Present: normal inspection, full ROM, other. Absent: tenderness, meningismus, lymphadenopathy Respiratory exam: Present: normal lung sounds bilaterally. Absent: respiratory distress, wheezes, rales, rhonchi, stridor Cardiovascular Exam: Present: regular rate, normal rhythm, normal heart sounds. Absent: systolic murmur, diastolic murmur, rubs, gallop, clicks GI/Abdominal exam: Present: soft, normal bowel sounds. Absent: distended, tenderness, guarding, rebound, rigid Extremities exam: Present: normal inspection, full ROM, normal capillary refill. Absent: tenderness, pedal edema, joint swelling, calf tenderness Back exam: Present: normal inspection Neurological exam: Present: alert, oriented X3, CN II-XII intact, motor sensory deficit (Decreased range of motion to the extremities) Psychiatric exam: Present: normal affect, normal mood Skin exam: Present: warm, dry, intact, normal color. Absent: rash Course Vital Signs 09/27/18 07:00 Temperature 98.1 F Pulse Rate 69 Respiratory 18 Rate Blood Pressure 151/86 O2 Sat by Pulse 92 L Oximetry Chest Pain MDM - MDM I did rebound patient several occasions her pain was still persistent though EKG changes were not evident I did discuss the findings with her as well as with Dr. Bay the patient will be admitted with cardiology consultation. Critical Care Time Critical Care Time: Yes Critical Care Time: 31 minutes of critical care time which includes initial presentation with history physical labs x-rays discussed with paramedics regarding the findings reevaluate the patient again discuss with the patient the admitting physician review of old charting admission orders and documentation the above Disposition Clinical Impression: Unstable angina pectoris, Chest pain, Acute coronary syndrome Disposition: ADMITTED IP TO THIS HOSP Condition: Fair Referrals: Alexei Vera MD [Primary Care Provider] - 1-2 days
[2018-09-27] MEDS ORDERED: ACETAMINOPHEN TAB 325 MG TAB PO STA (07:45)
[2018-09-27 07:52] LABS: Basophils % (A) 0 %; Eosinophils % (A) 1 %; HCT 41.9 % (34.0-46.0); HGB 13.7 gm/dL (11.4-16.0); Lymphocytes # (A) 0.6 k/uL (1.0-4.8); Lymphocytes % (A) 8 %; MCHC 32.7 g/dL (31.0-37.0); MCV 97.9 fL (80.0-100.0); Mean Platelet Volume 7.7; Monocytes # (A) 0.3 k/uL (0-1.0); Monocytes % (A) 4 %; Neutrophils # (A) 6.2 k/uL (1.3-7.7); Neutrophils % (A) 86 %; Platelet Count 161 k/uL (150-450); RBC 4.28 m/uL (3.80-5.40); RDW 13.2 % (11.5-15.5); WBC 7.2 k/uL (3.8-10.6)
[2018-09-27 08:08] LABS: ALT 18 U/L (9-52); AST 17 U/L (14-36); African American GFR (CKD) >90 (>60 ml/min/1.73 sqM); Albumin 2.9 g/dL (3.5-5.0); Alkaline Phosphatase 63 U/L (38-126); Anion Gap 5 mmol/L; Blood Urea Nitrogen 13 mg/dL (7-17); Calcium 8.1 mg/dL (8.4-10.2); Carbon Dioxide 30 mmol/L (22-30); Chloride 99 mmol/L (98-107); Creatine Kinase 30 U/L (30-135); Glucose 103 mg/dL (74-99); Magnesium 1.6 mg/dL (1.6-2.3); Potassium 4.3 mmol/L (3.5-5.1); Sodium 134 mmol/L (137-145); Total Bilirubin 0.4 mg/dL (0.2-1.3); Total Protein 5.4 g/dL (6.3-8.2)
[2018-09-27 08:21] LABS: INR 1.4 (<1.2); Partial Thromboplastin Time 26.7 sec (22.0-30.0); Prothrombin Time 14.4 sec (9.0-12.0)
--- NOTE | 2018-09-27 08:27 | XR ---
EXAMINATION TYPE: XR chest 2V DATE OF EXAM: 09/27/2018 COMPARISON: 03/31/2018 HISTORY: 63-year-old female with chest pain TECHNIQUE: AP and lateral views FINDINGS: Heart borderline in size. Similar volume loss in the right hemithorax with rightward shift of the hea rt. Left anterior chest wall AICD generator with right ventricular lead. Mild interstitial prominence . Increased AP chest dimension may reflect underlying COPD. Some strandy atelectasis at the posterior base. No consolidation or pleural effusion otherwise seen. IMPRESSION: Chronic changes, possible underlying COPD. Borderline heart size. No acute change seen.
[2018-09-27] MEDS ORDERED: MORPHINE SULFATE 2 MG/ML SYRINGE IVP STA (09:18)
[2018-09-27] MEDS ORDERED: methylPREDNISolone SOD SUCCI 125 MG/2 ML VIAL IV STA (09:25)
[2018-09-27] MEDS ORDERED: NITROGLYCERIN SL TABS 0.4 MG TAB SUBLINGUAL PRN (09:28)
[2018-09-27] MEDS ORDERED: HEPARIN SODIUM,PORCINE 5,000 UNIT/ML 1 ML VIAL IV ONE (09:28)
[2018-09-27] MEDS ORDERED: ALBUTEROL NEBULIZED 2.5 MG/3 ML INHALATION PRN (09:29)
[2018-09-27] MEDS ORDERED: LOPERAMIDE 2 MG CAP PO PRN (09:29)
[2018-09-27] MEDS ORDERED: HEPARIN SOD,PORK IN 0.45% NACL 25,000 UNIT in 0.45% NACL 1 250ML.BAG IV SCH (09:30)
--- NOTE | 2018-09-27 09:33 | ED ---
Medical Decision Making - Lab Data Result diagrams: 09/27/18 07:40 09/27/18 07:40 Lab Results 09/27/18 09/27/18 09/27/18 Range/Units 07:40 07:40 07:40 WBC 7.2 (3.8-10.6) k/uL RBC 4.28 (3.80-5.40) m/uL Hgb 13.7 (11.4-16.0) gm/dL Hct 41.9 (34.0-46.0) % MCV 97.9 (80.0-100.0) fL MCH 32.0 (25.0-35.0) pg MCHC 32.7 (31.0-37.0) g/dL RDW 13.2 (11.5-15.5) % Plt Count 161 (150-450) k/uL Neutrophils % 86 % Lymphocytes % 8 % Monocytes % 4 % Eosinophils % 1 % Basophils % 0 % Neutrophils # 6.2 (1.3-7.7) k/uL Lymphocytes # 0.6 L (1.0-4.8) k/uL Monocytes # 0.3 (0-1.0) k/uL Eosinophils # 0.0 (0-0.7) k/uL Basophils # 0.0 (0-0.2) k/uL PT (9.0-12.0) sec INR (<1.2) APTT (22.0-30.0) sec Sodium 134 L (137-145) mmol/L Potassium 4.3 (3.5-5.1) mmol/L Chloride 99 (98-107) mmol/L Carbon Dioxide 30 (22-30) mmol/L Anion Gap 5 mmol/L BUN 13 (7-17) mg/dL Creatinine 0.62 (0.52-1.04) mg/dL Est GFR (CKD-EPI)AfAm >90 (>60 ml/min/1.73 sqM) Est GFR (CKD-EPI)NonAf >90 (>60 ml/min/1.73 sqM) Glucose 103 H (74-99) mg/dL Calcium 8.1 L (8.4-10.2) mg/dL Magnesium 1.6 (1.6-2.3) mg/dL Total Bilirubin 0.4 (0.2-1.3) mg/dL AST 17 (14-36) U/L ALT 18 (9-52) U/L Alkaline Phosphatase 63 (38-126) U/L Creatine Kinase 30 (30-135) U/L Troponin I (0.000-0.034) ng/mL NT-Pro-B Natriuret Pep 1800 pg/mL Total Protein 5.4 L (6.3-8.2) g/dL Albumin 2.9 L (3.5-5.0) g/dL 09/27/18 09/27/18 Range/Units 07:40 07:40 WBC (3.8-10.6) k/uL RBC (3.80-5.40) m/uL Hgb (11.4-16.0) gm/dL Hct (34.0-46.0) % MCV (80.0-100.0) fL MCH (25.0-35.0) pg MCHC (31.0-37.0) g/dL RDW (11.5-15.5) % Plt Count (150-450) k/uL Neutrophils % % Lymphocytes % % Monocytes % % Eosinophils % % Basophils % % Neutrophils # (1.3-7.7) k/uL Lymphocytes # (1.0-4.8) k/uL Monocytes # (0-1.0) k/uL Eosinophils # (0-0.7) k/uL Basophils # (0-0.2) k/uL PT 14.4 H (9.0-12.0) sec INR 1.4 H (<1.2) APTT 26.7 (22.0-30.0) sec Sodium (137-145) mmol/L Potassium (3.5-5.1) mmol/L Chloride (98-107) mmol/L Carbon Dioxide (22-30) mmol/L Anion Gap mmol/L BUN (7-17) mg/dL Creatinine (0.52-1.04) mg/dL Est GFR (CKD-EPI)AfAm (>60 ml/min/1.73 sqM) Est GFR (CKD-EPI)NonAf (>60 ml/min/1.73 sqM) Glucose (74-99) mg/dL Calcium (8.4-10.2) mg/dL Magnesium (1.6-2.3) mg/dL Total Bilirubin (0.2-1.3) mg/dL AST (14-36) U/L ALT (9-52) U/L Alkaline Phosphatase (38-126) U/L Creatine Kinase (30-135) U/L Troponin I <0.012 (0.000-0.034) ng/mL NT-Pro-B Natriuret Pep pg/mL Total Protein (6.3-8.2) g/dL Albumin (3.5-5.0) g/dL Disposition Clinical Impression: Unstable angina pectoris, Chest pain, Acute coronary syndrome Disposition: ADMITTED IP TO THIS HOSP Condition: Fair Referrals: Alexei Vera MD [Primary Care Provider] - 1-2 days
[2018-09-27] MEDS: oxyCODONE-APAP 5-325MG 1 EACH TAB PO SCH ×3 (11:09→23:39)
--- NOTE | 2018-09-27 12:01 | P.CRDCN ---
History of Present Illness History of present illness: This is a pleasant 63-year-old female past medical history significant for coronary artery disease status post stent placement to the RCA 2012 in the setting of myocardial infarction, ischemic cardiomyopathy status post AICD, history of VT arrest 2012, advanced COPD, multiple sclerosis, hypertension and dyslipidemia. She follows in the office with Dr. Veliz. We've been asked to see her in consultation secondary to chest discomfort. She states last night while sitting in her chair playing on her phone she felt a chest tightness in the anterior portion underneath her breasts bilaterally that tightened and wrapped around her chest with a squeezing sensation. No radiation to the arm, neck or jaw. She took aspirin and 3 sublingual nitroglycerin at home and the pain seemed to improve. She went to bed for the evening, slept all night without any further chest dicomfort. She woke up this morning with another episode of similar type chest discomfort. Associated with this chest discomfort she felt some mild shortness of breath, nausea and vomited a small amount of Pepsi she had just drank. Upon arrival to the emergency department the pain had subsided. She is seen and examined resting comfortably in bed in no acute distress with no chest pain, nausea or shortness of breath. EKG reveals sinus mechanism heart rate of 66, inferior T-wave abnormality noted. Chest x-ray reveals evidence of underlying COPD was noted acute cardiopulmonary process. Laboratory data reviewed, WBC 7.2, hemoglobin 13.7, platelets 161, sodium 134, potassium 4.3, creatinine 0.62, magnesium 1.6, cardiac enzymes negative 1, NTproBNP 1800. Current cardiac medications include amiodarone 200 mg daily, aspirin 81 mg daily, Plavix 75 mg daily, Imdur 30 mg daily, Lopressor 25 mg daily. Most recent echocardiogram obtained March 2018 reveals impaired LV systolic function with EF 40-45%, infero-lateral and infero-basal hypokinesia, mild MR and mild TR. At the time of my exam: CONSTITUTIONAL: Denies fever. Denies chills. EYES: Denies blurred vision. Denies vision changes. Denies eye pain. EARS, NOSE, MOUTH & THROAT: Denies headache. Denies sore throat. Denies ear pain. CARDIOVASCULAR: Denies chest pain. Denies shortness of breath. Denies orthopnea. Denies PND. Denies palpitations. RESPIRATORY: Denies cough. GASTROINTESTINAL: Denies abdominal pain. Denies diarrhea. Denies constipation. Denies nausea. Denies vomiting. MUSCULOSKELETAL: Denies myalgias. INTEGUMENTARY: Denies pruitis. Denies rash. NEUROLOGIC: Denies numbness. Denies tingling. Denies weakness. PSYCHIATRIC: Denies anxiety. Denies depression. ENDOCRINE: Denies fatigue. Denies weight change. Denies polydipsia. Denies polyurina. GENITOURINARY: Denies burning, hematuria or urgency with micturation. HEMATOLOGIC: Denies history of anemia. Denies bleeding. Blood pressure 151/86 heart rate 69 afebrile maintaining oxygen saturation on room air GENERAL: This is a 63-year-old female in no apparent distress at the time of my examination. HEENT: Head is atraumatic, normocephalic. Pupils are equal, round. Sclerae anicteric. Conjunctivae are clear. Mucous membranes of the mouth are moist. Neck is supple. There is no jugular venous distention. No carotid bruit is heard. LUNGS: Clear to auscultation no wheezes, rales or rhonchi. No chest wall tenderness is noted on palpation or with deep breathing. HEART: Regular rate and rhythm without murmurs, rubs or gallops. S1 and S2 heard. ABDOMEN: Soft, nontender. Bowel sounds are heard. No organomegaly noted. EXTREMITIES: No evidence of peripheral edema and no calf tenderness noted. VASCULAR: Radial and dorsalis pedis pulses palpated, no evidence of clubbing. NEUROLOGIC: Patient is awake, alert and oriented x3. ASSESSMENT Chest pain, atypical for angina. Pt is mostly wheelchair bound, pain is at rest. History of coronary artery disease s/p stent placement to RCA Ischemic cardiomyopathy s/p [employer] ICD placement History of ventricular tachycardia in the past maintained on amiodarone Hypertension Dyslipidemia COPD Multiple sclerosis Chronic nicotine dependence, quit 2 weeks ago PLAN Continue to obtain serial cardiac enzymes to rule out an acute coronary event. Obtain 2D echocardiogram and doppler study to assess cardiac structure and fun ction. Continue aspirin, plavix, amiodarone, imdur and lopressor as previously ordered. If enzymes are normal we will perform a stress test in the morning. NPO after midnight. Apply nitropaste for ongoing chest discomfort. Thank you kindly for this consultation. Nurse Practitioner note has been reviewed, I agree with a documented findings and plan of care. Patient was seen and examined. Past Medical History Past Medical History: Coronary Artery Disease (CAD), Chest Pain / Angina, Heart Failure, COPD, Eye Disorder, Fibromyalgia, GERD/Reflux, Hyperlipidemia, Hypertension, Myocardial Infarction (CT), Musculoskeletal Disorder, Neurologic Disorder, Osteoarthritis (OA), Pneumonia, Respiratory Disorder, Skin Disorder, Thyroid Disorder, Vascular Disorder Additional Past Medical History / Comment(s): 11/2012 CT with cardiac a rrest/vtach, chronic respiratory failure-uses home O2 prn 2-3L/NC, tracheobronchitis, tricuspid regurgitation, multiple sclerosis, neuropathy bilateral legs/feet, chronic back pain, DDD, migraines, bilateral carpal tunnel syndrome, past L/R rib fractures, past L hip fracture with surgery, PUD with u lcer rupture with surgery, peritonitis, pancreatitis, IBS/ ulcerative colitis, chronic anemia, UTIs, urinary incontinence, endometriosis, hypothyroid, R cataract and L eye cataract forming again, PVD, L leg cellulitis, Last Myocardial Infarction Date:: 2012 History of Any Multi-Drug Resistant Organisms: ESBL Date of last positivie culture/infection: 02/18/2014 MDRO Source:: Blood and Urine E. coli ESBL Past Surgical History: AICD, Appendectomy, Heart Catheterization, Heart Catheterization With Stent, Orthopedic Surgery, Pacemaker Additional Past Surgical History / Comment(s): Cardioversion, Laparotomy for ruptured gastric ulcer, R foot fracture with surgery, L hip fracture with surgery-has plate and screw, EGD, colonoscopies with bening polypectomy. Past Anesthesia/Blood Transfusion Reactions: No Reported Reaction Additional Past Anesthesia/Blood Transfusion Reaction / Comment(s): Pt has received blood in past without reaction. Date of Last Stent Placement:: 11/2012 Type of Cardiac Device: Permanent Pacemaker, AICD Device Placement Date:: 2012 Past Psychological History: Anxiety, Bipolar, Depression, Panic Disorder Additional Psychological History / Comment(s): pt. wouldn't stated she does'nt know how she ended up with a legal guardian shweta cooper.pt stated she lives at [facility] -has help come in to do cleaning,cooking,bathing. Smoking Status: Former smoker Past Alcohol Use History: None Reported Additional Past Alcohol Use History / Comment(s): hx. alcohol abuse-last drank 12 yrs. ago patient is a smoker one pack per day for 40 years and quit 15 days ago. She has history of marijuana use in the past but none at this time. She also has history of alcohol abuse but quit 12 years ago. She is currently living on her own and has home care and assistance and plan to return there at the time of discharge. Past Drug Use History: None Reported - Past Family History Mother Family Medical History: Musculoskeletal Disorder Additional Family Medical History / Comment(s): MS Sister(s) Family Medical History: Myocardial Infarction (CT) Additional Family Medical History / Comment(s): SISTER ALSO HAS MS Brother(s) Family Medical History: Musculoskeletal Disorder, Neurologic Disorder Additional Family Medical History / Comment(s): MS Father Additional Family Medical History / Comment(s): ETOH abuse, back surgery Medications and Allergies Home Medications Medication Instructions Recorded Confirmed Type Clopidogrel [Plavix] 75 mg PO DAILY #0 02/21/14 09/27/18 Rx Folic Acid 1 mg PO DAILY 04/08/14 09/27/18 History Aspirin EC [Ecotrin Low Dose] 81 mg PO DAILY 09/23/14 09/27/18 History Primidone [Mysoline] 50 mg PO BID 04/12/15 09/27/18 History Albuterol Nebulized [Ventolin 2.5 mg INHALATION RT-Q6H PRN 04/13/15 09/27/18 History Nebulized] Thiamine [Vitamin B-1] 100 mg PO DAILY 04/13/15 09/27/18 History ALPRAZolam [Xanax] 0.25 mg PO TID 09/07/15 09/27/18 History oxyCODONE HCL/ACETAMINOPHEN 1 tab PO Q8H 09/07/15 09/27/18 History [Oxycodone-Acetaminophen 5-325] ARIPiprazole [Abilify] 10 mg PO DAILY 03/11/17 09/27/18 History Gabapentin [Neurontin] 300 mg PO TID 03/11/17 09/27/18 History Amiodarone [Cordarone] 200 mg PO DAILY #0 03/13/17 09/27/18 Rx Baclofen [Lioresal] 10 mg PO BID 07/09/17 09/27/18 History Albuterol Inhaler [Ventolin Hfa 1 - 2 puff INHALATION RT-QID PRN 03/31/18 09/27/18 History Inhaler] Metoprolol Tartrate [Lopressor] 25 mg PO DAILY 03/31/18 09/27/18 History Isosorbide Mononitrate ER [Imdur] 30 mg PO DAILY #30 tab.er.24h 04/03/18 09/27/18 Rx Nitroglycerin Sl Tabs [Nitrostat] 0.4 mg SUBLINGUAL Q5M PRN #20 tab 04/03/18 09/27/18 Rx Pantoprazole [Protonix] 40 mg PO DAILY #30 tablet.dr 04/03/18 09/27/18 Rx Cholecalciferol (Vitamin D3) 2,000 unit PO DAILY 09/27/18 09/27/18 History [Vitamin D3] Docusate [Colace] 100 mg PO DAILY 09/27/18 09/27/18 History Ferrous Sulfate [Feosol] 325 mg PO BID 09/27/18 09/27/18 History Fluticasone Nasal [place] [Flonase 1 spr EA NOSTRIL DAILY 09/27/18 09/27/18 History Nasal [place]] Fluticasone/Salmeterol 1 puff INHALATION RT-Q12H 09/27/18 09/27/18 History [Fluticasone-Salmeterol 113-14] Levothyroxine Sodium [Synthroid] 100 mcg PO DAILY 09/27/18 09/27/18 History Loperamide HCl [Imodium A-D] 2 mg PO DAILY PRN 09/27/18 09/27/18 History Meclizine [Antivert] 25 mg PO TID 09/27/18 09/27/18 History Sodium Chloride Tab 1 gm PO BID 09/27/18 09/27/18 History Allergies Allergy/AdvReac Type Severity Reaction Status Date / Time Penicillins Allergy Swelling Verified 09/27/18 08:13 Physical Exam Vitals: Vital Signs Temp Pulse Pulse Resp BP BP Pulse Ox 09/27/18 10:37 98.1 F 62 18 144/87 97 09/27/18 10:00 63 18 131/80 98 09/27/18 09:30 160/95 99 09/27/18 09:00 148/91 100 09/27/18 08:30 155/90 99 09/27/18 08:00 162/97 09/27/18 07:30 156/89 99 09/27/18 07:03 90 L 09/27/18 07:00 98.1 F 69 18 151/86 92 L Intake and Output 09/26/18 09/27/18 09/27/18 22:59 06:59 14:59 Other: Weight 63.957 kg Results 09/27/18 07:40 09/27/18 07:40 Cardiac Enzymes 09/27/18 09/27/18 Range/Units 07:40 07:40 AST 17 (14-36) U/L Troponin I <0.012 (0.000-0.034) ng/mL Coagulation 09/27/18 Range/Units 07:40 PT 14.4 H (9.0-12.0) sec APTT 26.7 (22.0-30.0) sec CBC 09/27/18 Range/Units 07:40 WBC 7.2 (3.8-10.6) k/uL RBC 4.28 (3.80-5.40) m/uL Hgb 13.7 (11.4-16.0) gm/dL Hct 41.9 (34.0-46.0) % Plt Count 161 (150-450) k/uL Comprehensive Metabolic Panel 09/27/18 Range/Units 07:40 Sodium 134 L (137-145) mmol/L Potassium 4.3 (3.5-5.1) mmol/L Chloride 99 (98-107) mmol/L Carbon Dioxide 30 (22-30) mmol/L BUN 13 (7-17) mg/dL Creatinine 0.62 (0.52-1.04) mg/dL Glucose 103 H (74-99) mg/dL Calcium 8.1 L (8.4-10.2) mg/dL AST 17 (14-36) U/L ALT 18 (9-52) U/L Alkaline Phosphatase 63 (38-126) U/L Total Protein 5.4 L (6.3-8.2) g/dL Albumin 2.9 L (3.5-5.0) g/dL Current Medications Generic Name Dose Route Start Last Admin Trade Name Freq PRN Reason Stop Dose Admin Albuterol Sulfate 2.5 mg 09/27/18 09:29 Ventolin Nebulized INHALATION RT-Q6H PRN Shortness Of Breath Alprazolam 0.25 mg 09/27/18 16:00 Xanax PO TID [facility] Amiodarone HCl 200 mg 09/28/18 09:00 Cordarone PO DAILY [facility] Aripiprazole 10 mg 09/28/18 09:00 Abilify PO DAILY [facility] Aspirin 325 mg 09/28/18 09:00 Aspirin PO DAILY [facility] Baclofen 10 mg 09/27/18 21:00 Lioresal PO BID [facility] Budesonide/Formoterol Fumarate 1 puff 09/27/18 20:00 Symbicort 160-4.5 Mcg Inhaler INHALATION RT-Q12H [facility] Cholecalciferol 2,000 unit 09/28/18 09:00 Vitamin D3 (25 Mcg = 1000 Iu) PO DAILY [facility] Clopidogrel Bisulfate 75 mg 09/28/18 09:00 Plavix PO DAILY [facility] Docusate Sodium 100 mg 09/28/18 09:00 Colace PO DAILY [facility] Ferrous Sulfate 325 mg 09/27/18 21:00 Feosol PO BID [facility] Fluticasone Propionate 1 spray 09/28/18 09:00 Flonase Nasal [place] EA NOSTRIL DAILY [facility] Folic Acid 1 mg 09/28/18 09:00 Folic Acid PO DAILY [facility] Gabapentin 300 mg 09/27/18 16:00 Neurontin PO TID [facility] Heparin Sodium/Sodium Chloride 250 mls @ 7.675 mls/hr 09/27/18 09:30 09/27/18 10:04 25,000 unit/ Sodium Chloride IV 12 units/kg/hr .Q24H SID 7.675 mls/hr Administration Protocol 12 UNITS/KG/HR Isosorbide Mononitrate 30 mg 09/28/18 09:00 Imdur PO DAILY [facility] Levothyroxine Sodium 100 mcg 09/28/18 06:30 [place]throid PO 0630 [facility] Loperamide HCl 2 mg 09/27/18 09:29 Imodium PO DAILY PRN Loose Stool Meclizine HCl 25 mg 09/27/18 16:00 Antivert PO TID [facility] Methylprednisolone Sodium Succinate 60 mg 09/27/18 16:00 Solu-Medrol IV Q6HR [facility] Metoprolol Tartrate 25 mg 09/28/18 09:00 Lopressor PO DAILY [facility] Nitroglycerin 0.5 inch 09/27/18 12:00 Nitro-Bid Oint TOPICAL Q6HR [facility] Nitroglycerin 0.4 mg 09/27/18 09:28 Nitrostat SUBLINGUAL Q5M PRN Chest Pain Oxycodone/Acetaminophen 1 each 09/27/18 10:00 Percocet 5-325 PO Q8HR [facility] Pantoprazole Sodium 40 mg 09/28/18 09:00 Protonix PO DAILY [facility] Primidone 50 mg 09/27/18 21:00 Mysoline PO BID [facility] Sodium Chloride 1 gm 09/27/18 21:00 Sodium Chloride Tab PO BID [facility] Thiamine HCl 100 mg 09/28/18 09:00 Vitamin B-1 PO DAILY [facility] Intake and Output 09/26/18 09/27/18 09/27/18 22:59 06:59 14:59 Other: Weight 63.957 kg Patient Weight 09/28/18 06:59 Weight 63.957 kg 09/27/18 07:40 09/27/18 07:40
[2018-09-27] MEDS: NITROGLYCERIN OINT 1 INCH/GM PACKET TOPICAL SCH ×3 (13:37→23:40)
[2018-09-27] MEDS ORDERED: methylPREDNISolone SOD SUCCI 125 MG/2 ML VIAL IV SCH (16:00)
[2018-09-27] MEDS: MECLIZINE 25 MG TAB PO SCH ×2 (16:57→20:18)
[2018-09-27] MEDS: GABAPENTIN 300 MG CAP PO SCH ×2 (16:57→20:18)
[2018-09-27] MEDS: ALPRAZolam 0.25 MG TAB PO SCH ×2 (16:57→20:18)
[2018-09-27] MEDS: SYMBICORT 160-4.5 MCG INHALER INHALATION SCH (20:02)
--- NOTE | 2018-09-27 20:12 | P.HPIM ---
History of Present Illness H&P Date: 09/27/18 Chief Complaint: Chest pain History of present complaint: This is a 63-year-old patient who follows with visiting physicians Dr. Vera. Patient has a rather extensive medical history. Normally uses a wheelchair or a walker to get about. Has known coronary artery disease. Patient presents with about 12 hours of chest pain going across the chest below both the breasts. Fel t like a pressure-like sensation. Some shortness of breath. No dizziness or lightheadedness. No cough or shortness of breath. Not radiate to the arm or neck. Some perspiration. Finally decided to come to the ER. Admitted for unstable angina. Patient is better right now. When I saw this patient this morning. Cardiology was consulted. Review of systems: GEN.: Tired EYES: None HEENT: None NECK: None RESPIRATORY: None CARDIOVASCULAR: As above GASTROINTESTINAL: None GENITOURINARY: Urinary incontinence MUSCULOSKELETAL: Pain in the joints] LYMPHATICS: None HEMATOLOGICAL: None PSYCHIATRY: None NEUROLOGICAL: Chronic weakness in the legs uses a wheelchair or a walker] Physical examination: VITAL SIGNS: 98.1, 69, 18, 151/86, 92% room air GENERAL: Average built, sitting up, comfortable. EYES: Pupils equal. Conjunctiva normal. HEENT: External appearance of nose and ears normal, oral cavity grossly normal. NECK: JVD not raised; masses not palpable. HEART: First and second heart sounds are normal; no edema. LUNGS: Respiratory rate increased, decreased breath sounds. ABDOMEN: Soft, nontender, liver spleen not palpable, no masses palpable. LYMPHATICS: No lymph nodes palpable in the axilla and neck. PSYCH: Alert and oriented x3; mood and affect normal. NEUROLOGICAL: [Cranial nerves grossly intact; no facial asymmetry, decreased power in the lower extremity. Investigations: White count 7.2 hemoglobin 13.7 potassium 4.3 BUN 13 creatinine 0.62 Troponin 2 negative EKG-tracing personally reviewed by me shows some ST segment changes in inferior and anterior leads Chest x-ray film personally reviewed by me shows some chronic changes, some pulling of the mediastinum to the right r with patient turned to the right . X- ray report noted Assessment: -Unstable angina in a known patient with coronary artery disease -Coronary artery disease -COPD in an ex-smoker -Chronic fibromyalgia -GERD -Hyperlipidemia -Essential hypertension -Primary osteoarthritis -Hypothyroid -Chronic multiple sclerosis -Peripheral neuropathy both the lower extremity -Chronic urinary incontinence -Chronic kidney dysfunction uses a walker/wheelchair Plan: Home medications are resumed. Patient's is on aspirin and beta blockers and IV heparin. Care was discussed with the patient. Questions were answered. Cardiology was consulted. Planning for stress test tomorrow morning. Past Medical History Past Medical History: Coronary Artery Disease (CAD), Chest Pain / Angina, Heart Failure, COPD, Eye Disorder, Fibromyalgia, GERD/Reflux, Hyperlipidemia, Hypertension, Myocardial Infarction (CA), Musculoskeletal Disorder, Neurologic Disorder, Osteoarthritis (OA), Pneumonia, Respiratory Disorder, Skin Disorder, Thyroid Disorder, Vascular Disorder Additional Past Medical History / Comment(s): 11/2012 CA with cardiac arrest /vtach, chronic respiratory failure-uses home O2 prn 2-3L/NC, tracheobronchitis, tricuspid regurgitation, multiple sclerosis, neuropathy bilateral legs/feet, chronic back pain, DDD, migraines, bilateral carpal tunnel syndrome, past L/R rib fractures, past L hip fracture with surgery, PUD with ulcer rupture with surgery, peritonitis, pancreatitis, IBS/ ulcerative colitis, chronic anemia, UTIs, urinary incontinence, endometriosis, hypothyroid, R cataract and L eye cataract forming again, PVD, L leg cellulitis, Last Myocardial Infarction Date:: 2012 History of Any Multi-Drug Resistant Organisms: ESBL Date of last positivie culture/infection: 02/18/2014 MDRO Source:: Blood and Urine E. coli ESBL Past Surgical History: AICD, Appendectomy, Heart Catheterization, Heart Ca theterization With Stent, Orthopedic Surgery, Pacemaker Additional Past Surgical History / Comment(s): Cardioversion, Laparotomy for ruptured gastric ulcer, R foot fracture with surgery, L hip fracture with surgery-has plate and screw, EGD, colonoscopies with bening polypectomy. Past Anesthesia/Blood Transfusion Reactions: No Reported Reaction Additional Past Anesthesia/Blood Transfusion Reaction / Comment(s): Pt has rece ived blood in past without reaction. Date of Last Stent Placement:: 11/2012 Type of Cardiac Device: Permanent Pacemaker, AICD Device Placement Date:: 2012 Past Psychological History: Anxiety, Bipolar, Depression, Panic Disorder Additional Psychological History / Comment(s): pt. wouldn't stated she does'nt know how she ended up with a legal guardian shweta cooper.pt stated she lives at [facility] -has help come in to do cleaning,cooking,bathing. Smoking Status: Former smoker Past Alcohol Use History: None Reported Additional Past Alcohol Use History / Comment(s): hx. alcohol abuse-last drank 12 yrs. ago patient is a smoker one pack per day for 40 years and quit 15 days ago. She has history of marijuana use in the past but none at this time. She also has history of alcohol abuse but quit 12 years ago. She is currently living on her own and has home care and assistance and plan to return there at the time of discharge. Past Drug Use History: None Reported - Past Family History Mother Family Medical History: Musculoskeletal Disorder Additional Family Medical History / Comment(s): MS Sister(s) Family Medical History: Myocardial Infarction (CA) Additional Family Medical History / Comment(s): SISTER ALSO HAS MS Brother(s) Family Medical History: Musculoskeletal Disorder, Neurologic Disorder Additional Family Medical History / Comment(s): MS Father Additional Family Medical History / Comment(s): ETOH abuse, back surgery Medications and Allergies Home Medications Medication Instructions Recorded Confirmed Type Clopidogrel [Plavix] 75 mg PO DAILY #0 02/21/14 09/27/18 Rx Folic Acid 1 mg PO DAILY 04/08/14 09/27/18 History Aspirin EC [Ecotrin Low Dose] 81 mg PO DAILY 09/23/14 09/27/18 History Primidone [Mysoline] 50 mg PO BID 04/12/15 09/27/18 History Albuterol Nebulized [Ventolin 2.5 mg INHALATION RT-Q6H PRN 04/13/15 09/27/18 History Nebulized] Thiamine [Vitamin B-1] 100 mg PO DAILY 04/13/15 09/27/18 History ALPRAZolam [Xanax] 0.25 mg PO TID 09/07/15 09/27/18 History oxyCODONE HCL/ACETAMINOPHEN 1 tab PO Q8H 09/07/15 09/27/18 History [Oxycodone-Acetaminophen 5-325] ARIPiprazole [Abilify] 10 mg PO DAILY 03/11/17 09/27/18 History Gabapentin [Neurontin] 300 mg PO TID 03/11/17 09/27/18 History Amiodarone [Cordarone] 200 mg PO DAILY #0 03/13/17 09/27/18 Rx Baclofen [Lioresal] 10 mg PO BID 07/09/17 09/27/18 History Albuterol Inhaler [Ventolin Hfa 1 - 2 puff INHALATION RT-QID PRN 03/31/18 09/27/18 History Inhaler] Metoprolol Tartrate [Lopressor] 25 mg PO DAILY 03/31/18 09/27/18 History Isosorbide Mononitrate ER [Imdur] 30 mg PO DAILY #30 tab.er.24h 04/03/18 09/27/18 Rx Nitroglycerin Sl Tabs [Nitrostat] 0.4 mg SUBLINGUAL Q5M PRN #20 tab 04/03/18 09/27/18 Rx Pantoprazole [Protonix] 40 mg PO DAILY #30 tablet.dr 04/03/18 09/27/18 Rx Cholecalciferol (Vitamin D3) 2,000 unit PO DAILY 09/27/18 09/27/18 History [Vitamin D3] Docusate [Colace] 100 mg PO DAILY 09/27/18 09/27/18 History Ferrous Sulfate [Feosol] 325 mg PO BID 09/27/18 09/27/18 History Fluticasone Nasal [place] [Flonase 1 spr EA NOSTRIL DAILY 09/27/18 09/27/18 History Nasal [place]] Fluticasone/Salmeterol 1 puff INHALATION RT-Q12H 09/27/18 09/27/18 History [Fluticasone-Salmeterol 113-14] Levothyroxine Sodium [Synthroid] 100 mcg PO DAILY 09/27/18 09/27/18 History Loperamide HCl [Imodium A-D] 2 mg PO DAILY PRN 09/27/18 09/27/18 History Meclizine [Antivert] 25 mg PO TID 09/27/18 09/27/18 History Sodium Chloride Tab 1 gm PO BID 09/27/18 09/27/18 History Allergies Allergy/AdvReac Type Severity Reaction Status Date / Time Penicillins Allergy Swelling Verified 09/27/18 08:13 Physical Exam Vitals: Vital Signs Temp Pulse Pulse Resp BP BP Pulse Ox 09/27/18 19:50 98.1 F 72 18 124/77 88 L 09/27/18 16:00 16 09/27/18 15:36 97.7 F 64 16 125/79 90 L 09/27/18 12:00 18 09/27/18 10:37 98.1 F 62 18 144/87 97 09/27/18 10:00 63 18 131/80 98 09/27/18 09:30 160/95 99 09/27/18 09:00 148/91 100 09/27/18 08:30 155/90 99 09/27/18 08:00 162/97 09/27/18 07:30 156/89 99 09/27/18 07:03 90 L 09/27/18 07:00 98.1 F 69 18 151/86 92 L Intake and Output 09/27/18 09/27/18 09/27/18 06:59 14:59 22:59 Intake Total 61.528 Balance 61.528 Intake: Intake, IV Titration 61.528 Amount Heparin Sod,Pork in 0.45% 61.528 NaCl 25,000 unit In 0.45 % NaCl 1 250ml.bag @ 12 UNITS/KG/HR 7.675 mls/hr IV .Q24H [facility] Rx#: [id number] Other: Voiding Method Toilet Toilet # Voids 1 7 Weight 63.957 kg Results CBC & Chem 7: 09/27/18 07:40 09/27/18 07:40 Labs: Abnormal Lab Results - Last 24 Hours (Table) 09/27/18 09/27/18 09/27/18 Range/Units 07:40 07:40 07:40 Lymphocytes # 0.6 L (1.0-4.8) k/uL PT 14.4 H (9.0-12.0) sec INR 1.4 H (<1.2) APTT (22.0-30.0) sec Sodium 134 L (137-145) mmol/L Glucose 103 H (74-99) mg/dL Calcium 8.1 L (8.4-10.2) mg/dL Total Protein 5.4 L (6.3-8.2) g/dL Albumin 2.9 L (3.5-5.0) g/dL 09/27/18 Range/Units 17:14 Lymphocytes # (1.0-4.8) k/uL PT (9.0-12.0) sec INR (<1.2) APTT 91.9 H (22.0-30.0) sec Sodium (137-145) mmol/L Glucose (74-99) mg/dL Calcium (8.4-10.2) mg/dL Total Protein (6.3-8.2) g/dL Albumin (3.5-5.0) g/dL Thrombosis Risk Factor Assmnt - Choose All That Apply Any of the Below Risk Factors Present?: Yes Each Factor Represents 1 point: Abnormal pulmonary function (COPD), Obesity (BMI >25) Other Risk Factors: Yes Each Risk Factor Represents 2 Points: Age 61-74 years Other congenital or acquired thrombophilia - If yes, enter type in comment: No Thrombosis Risk Factor Assessment Total Risk Factor Score: 4 Thrombosis Risk Factor Assessment Level: Moderate Risk
[2018-09-27] MEDS: FERROUS SULFATE 325 MG TAB PO SCH (20:17)
[2018-09-27] MEDS: SODIUM CHLORIDE TAB 1 GM TAB PO SCH (20:18)
[2018-09-27] MEDS: PRIMIDONE 50 MG TAB PO SCH (20:18)
[2018-09-27] MEDS: BACLOFEN 10 MG TAB PO SCH (20:18)
[2018-09-28] MEDS ORDERED: MAG HYDROX/AL HYDROX/SIMETH 30 ML CUP PO PRN (03:20)
[2018-09-28] MEDS: ONDANSETRON 4 MG/2 ML VIAL IVP PRN ×2 (03:29→08:30)
[2018-09-28] MEDS: NITROGLYCERIN OINT 1 INCH/GM PACKET TOPICAL SCH ×2 (03:52→05:14)
[2018-09-28 06:23] LABS: Cholesterol 189 mg/dL (<200); HDL Cholesterol 62 mg/dL (40-60); LDL Cholesterol,Calculated 110 mg/dL (0-99); Triglycerides 87 mg/dL (<150)
[2018-09-28] MEDS ORDERED: LEVOTHYROXINE 100 MCG TAB PO SCH (06:30)
[2018-09-28 07:09] VITALS: BP 158/107; PULSE 76; RESP 18; TEMP 97.6
[2018-09-28] MEDS ORDERED: AMINOPHYLLINE 500 MG/20 ML VIAL IV PRN (07:10)
[2018-09-28] MEDS ORDERED: DIPYRIDAMOLE IV ONE (07:10)
[2018-09-28] MEDS ORDERED: SODIUM CHLORIDE 0.9% IV ONE (07:10)
[2018-09-28] MEDS ORDERED: CAFFEINE CITRATE 60 MG/3 ML VIAL IV PRN (07:10)
[2018-09-28] MEDS: SYMBICORT 160-4.5 MCG INHALER INHALATION SCH (08:02)
[2018-09-28] MEDS: oxyCODONE-APAP 5-325MG 1 EACH TAB PO SCH (08:15)
[2018-09-28] MEDS: ALPRAZolam 0.25 MG TAB PO SCH (08:16)
[2018-09-28] MEDS: BACLOFEN 10 MG TAB PO SCH (08:18)
[2018-09-28] MEDS: GABAPENTIN 300 MG CAP PO SCH (08:18)
[2018-09-28] MEDS: SODIUM CHLORIDE TAB 1 GM TAB PO SCH (08:19)
[2018-09-28] MEDS: FERROUS SULFATE 325 MG TAB PO SCH (08:19)
[2018-09-28] MEDS: MECLIZINE 25 MG TAB PO SCH (08:19)
[2018-09-28] MEDS: PRIMIDONE 50 MG TAB PO SCH (08:20)
[2018-09-28] MEDS ORDERED: PANTOPRAZOLE 40 MG TABLET PO SCH (09:00)
[2018-09-28] MEDS ORDERED: CHOLECALCIFEROL 1,000 UNIT TAB PO SCH (09:00)
[2018-09-28] MEDS ORDERED: THIAMINE 100 MG TAB PO SCH (09:00)
[2018-09-28] MEDS ORDERED: METOPROLOL TARTRATE 25 MG TAB PO SCH ×2 (09:00→21:00)
[2018-09-28] MEDS ORDERED: FLUTICASONE 50MCG/SPRAY NASAL 16GM EA NOSTRIL SCH (09:00)
[2018-09-28] MEDS ORDERED: ISOSORBIDE MONONITRATE ER 30 MG TAB.ER.24H PO SCH (09:00)
[2018-09-28] MEDS ORDERED: DOCUSATE 100 MG CAP PO SCH (09:00)
[2018-09-28] MEDS ORDERED: AMIODARONE 200 MG TAB PO SCH (09:00)
[2018-09-28] MEDS ORDERED: ASPIRIN 325 MG TAB PO SCH (09:00)
[2018-09-28] MEDS ORDERED: ARIPiprazole 10 MG TAB PO SCH (09:00)
[2018-09-28] MEDS ORDERED: FOLIC ACID 1 MG TAB PO SCH (09:00)
[2018-09-28] MEDS ORDERED: CLOPIDOGREL 75 MG TAB PO SCH (09:00)
--- NOTE | 2018-09-28 09:38 | P.PN ---
Subjective This is a pleasant 63-year-old female past medical history significant for coronary artery disease status post stent placement to the RCA 2012 in the setting of myocardial infarction, ischemic cardiomyopathy status post AICD, history of VT arrest 2012, advanced COPD, multiple sclerosis, hypertension and dyslipidemia. She follows in the office with Dr. Veliz. She is seen and examined sitting up at the edge of the bed. She states she has had ongoing pain in her torso all night. The pain is worse with deep inspiration or any movement of her body whatsoever. She denies shortness of breath, dizziness, palpitations, nausea or vomiting. Laboratory reviewed, cardiac enzymes negative x3, LDL 110, HDL 62. Blood pressure 158/107 heart rate 76. She is stating her pain is currently 10/10. She is requesting her scheduled percocet. Echocardiogram has been obtained and will be reviewed. GENERAL: This is a 63-year-old female in no apparent distress at the time of my examination. HEENT: Head is atraumatic, normocephalic. Pupils are equal, round. Sclerae anicteric. Conjunctivae are clear. Mucous membranes of the mouth are moist. Neck is supple. There is no jugular venous distention. No carotid bruit is heard. LUNGS: Clear to auscultation no wheezes, rales or rhonchi. No chest wall tenderness is noted on palpation or with deep breathing. HEART: Regular rate and rhythm without murmurs, rubs or gallops. S1 and S2 heard. EXTREMITIES: No evidence of peripheral edema and no calf tenderness noted. ASSESSMENT Chest pain, atypical for angina. Pt is mostly wheelchair bound, pain is at rest. History of coronary artery disease s/p stent placement to RCA Ischemic cardiomyopathy s/p [employer] ICD placement History of ventricular tachycardia in the past maintained on amiodarone Hypertension Dyslipidemia COPD Multiple sclerosis Chronic nicotine dependence, quit 2 weeks ago PLAN An acute coronary event has been ruled out. Discontinue heparin infusion. Decrease aspirin to 81 mg daily. Pain is atypical for angina and seems to be related to musculoskeletal discomfort. Due to her significant atypical torso pain we will not do a stress test today. Ongoing medical management. Follow up with Dr. Veliz in 1-2 weeks. Nurse Practitioner note has been reviewed, I agree with a documented findings and plan of care. Patient was seen and examined. Objective - Vital Signs Vital signs: Vital Signs Temp 97.6 F 09/28/18 07:00 Pulse 76 09/28/18 07:00 Resp 18 09/28/18 07:00 BP 158/107 09/28/18 07:00 Pulse Ox 93 L 09/28/18 07:00 Intake & Output 09/27/18 09/28/18 09/28/18 18:59 06:59 18:59 Intake Total 61.528 Balance 61.528 Weight 63.957 kg Intake: Intake, IV Titration 61.528 Amount Heparin Sod,Pork in 0.45% 61.528 NaCl 25,000 unit In 0.45 % NaCl 1 250ml.bag @ 12 UNITS/KG/HR 7.675 mls/hr IV .Q24H [facility] Rx#: [id number] Other: Voiding Method Toilet Toilet # Voids 7 2 - Labs CBC & Chem 7: 09/27/18 07:40 09/27/18 07:40 Labs: Abnormal Lab Results - Last 24 Hours (Table) 09/27/18 09/28/18 09/28/18 Range/Units 17:14 00:02 06:05 APTT 91.9 H 59.4 H (22.0-30.0) sec LDL Cholesterol, Calc 110 H (0-99) mg/dL HDL Cholesterol 62 H (40-60) mg/dL 09/28/18 Range/Units 06:05 APTT 37.3 H (22.0-30.0) sec LDL Cholesterol, Calc (0-99) mg/dL HDL Cholesterol (40-60) mg/dL
[2018-09-28] MEDS ORDERED: ATORVASTATIN 40 MG TAB PO SCH (09:45)
--- NOTE | 2018-09-28 13:01 | ECHOF ---
Referral Reason:cp, isc. CM MEASUREMENTS -------- HEIGHT: 154.9 cm WEIGHT: 64.0 kg BP: IVSd: 0.7 cm (0.6 - 1.1) LVIDd: 4.3 cm (3.9 - 5.3) LVPWd: 0.8 cm (0.6 - 1.1) IVSs: 1.0 cm LVIDs: 3.0 cm LVPWs: 1.3 cm Ao Diam: 2.8 cm (2.0 - 3.7) AV Cusp: 1.3 cm (1.5 - 2.6) LA Diam: 3.4 cm (2.7 - 3.8) MV EXCURSION: 14.230 mm (> 18.000) MV EF SLOPE: 93 mm/s (70 - 150) EPSS: 2.0 cm MV E Da: 0.50 m/s MV DecT: 268 ms MV A Da: 0.75 m/s MV E/A Ratio: 0.66 AR PHT: 372 ms RAP: 5.00 mmHg RVSP: 28.48 mmHg FINDINGS -------- Sinus rhythm. Pacerwire seen in RV and RA. This was a technically difficult study with suboptimal views. The left ventricular size is normal. Left ventricular wall thickness is normal. Overall left vent ricular systolic function is mild-moderately impaired with, an EF between 40 - 45 %. Basal inferior LV wall motion is akinetic. Basal inferoseptal LV wall motion is akinetic. Mid inferior LV wal l motion is akinetic. The right ventricle is normal in size. The left atrial size is normal. The right atrial size is normal. Lumason used Interatrial and interventricular septum intact. There is mild aortic valve sclerosis. There is mild aortic regurgitation. The mitral valve leaflets are mildly thickened. Mild mitral regurgitation is present. Mild tricuspid regurgitation present. There is no evidence of pulmonary hypertension. The right v entricular systolic pressure, as measured by Doppler, is 28.48mmHg. The pulmonic valve was not well visualized. There is no pulmonic regurgitation present. The aortic root size is normal. IVC Not well visulized. There is no pericardial effusion. CONCLUSIONS -------- 1. Sinus rhythm. 2. Pacerwire seen in RV and RA. 3. This was a technically difficult study with suboptimal views. 4. The left ventricular size is normal. 5. Left ventricular wall thickness is normal. 6. Overall left ventricular systolic function is mild-moderately impaired with, an EF between 40 - 45 %. 7. Basal inferior LV wall motion is akinetic. 8. Basal inferoseptal LV wall motion is akinetic. 9. Mid inferior LV wall motion is akinetic. 10. The left atrial size is normal. 11. Lumason used 12. There is mild aortic valve sclerosis. 13. There is mild aortic regurgitation. 14. The mitral valve leaflets are mildly thickened. 15. Mild mitral regurgitation is present. 16. Mild tricuspid regurgitation present. 17. There is no evidence of pulmonary hypertension. 18. There is no pulmonic regurgitation present. 19. The aortic root size is normal. 20. IVC Not well visulized. 21. There is no pericardial effusion. INCLUSION SPECIAL EDUCATOR: Melodie Duckworth RDCS
--- NOTE | 2018-09-28 23:17 | P.DS ---
Providers Date of admission: 09/27/18 09:35 Expected date of discharge: 09/28/18 Attending physician: Adolfo Bay Consults: 09/27/18 09:28 Consult Physician Urgent Consulting Provider: Diana Real Consult Reason/Comments: Chest pain, angina Do you want consulting provider notified?: Yes Primary care physician: Alexei Vera MD Hospital Course: Hospital course: Patient admitted with chest pain. Seen by cardiogenic. [place] to be atypical. Not for any further testing. Patient to follow with the tree inspector Dr. Veliz. No further chest pain. Troponins were negative. 2-D echo showed a EF of 40- 45%. Some wall motion abnormalities. On examination 97.6, 76, 18, 159/95, 93% room air Lungs-decreased breath sounds Cardiovascular first seconds are normal Labs: LDL 110 BUN and creatinine both normal Patient Condition at Discharge: Stable Plan - Discharge Summary Discharge Rx Participant: No New Discharge Prescriptions: New Atorvastatin [Lipitor] 40 mg PO DAILY #30 tab Nitroglycerin Sl Tabs [Nitrostat] 0.4 mg SUBLINGUAL Q5M PRN #25 tab PRN Reason: Chest Pain Continue Clopidogrel [Plavix] 75 mg PO DAILY #0 Folic Acid 1 mg PO DAILY Aspirin EC [Ecotrin Low Dose] 81 mg PO DAILY Primidone [Mysoline] 50 mg PO BID Albuterol Nebulized [Ventolin Nebulized] 2.5 mg INHALATION RT-Q6H PRN PRN Reason: Shortness Of Breath Thiamine [Vitamin B-1] 100 mg PO DAILY oxyCODONE HCL/ACETAMINOPHEN [Oxycodone-Acetaminophen 5-325] 1 tab PO Q8H ALPRAZolam [Xanax] 0.25 mg PO TID Gabapentin [Neurontin] 300 mg PO TID ARIPiprazole [Abilify] 10 mg PO DAILY Amiodarone [Cordarone] 200 mg PO DAILY #0 Baclofen [Lioresal] 10 mg PO BID Albuterol Inhaler [Ventolin Hfa Inhaler] 1 - 2 puff INHALATION RT-QID PRN PRN Reason: Shortness Of Breath Metoprolol Tartrate [Lopressor] 25 mg PO DAILY Isosorbide Mononitrate ER [Imdur] 30 mg PO DAILY #30 tab.er.24h Nitroglycerin Sl Tabs [Nitrostat] 0.4 mg SUBLINGUAL Q5M PRN #20 tab PRN Reason: Chest Pain Pantoprazole [Protonix] 40 mg PO DAILY #30 tablet. Meclizine [Antivert] 25 mg PO TID Fluticasone/Salmeterol [Fluticasone-Salmeterol 113-14] 1 puff INHALATION RT- Q12H Fluticasone Nasal [place] [Flonase Nasal [place]] 1 spr EA NOSTRIL DAILY Cholecalciferol (Vitamin D3) [Vitamin D3] 2,000 unit PO DAILY Docusate [Colace] 100 mg PO DAILY Ferrous Sulfate [Iron (65 MG Elemental)] 325 mg PO BID Levothyroxine Sodium [Synthroid] 100 mcg PO DAILY Loperamide HCl [Imodium A-D] 2 mg PO DAILY PRN PRN Reason: Loose Stool Sodium Chloride Tab 1 gm PO BID Discharge Medication List Clopidogrel [Plavix] 75 mg PO DAILY #0 02/21/14 [Rx] Folic Acid 1 mg PO DAILY 04/08/14 [History] Aspirin EC [Ecotrin Low Dose] 81 mg PO DAILY 09/23/14 [History] Primidone [Mysoline] 50 mg PO BID 04/12/15 [History] Albuterol Nebulized [Ventolin Nebulized] 2.5 mg INHALATION RT-Q6H PRN 04/13/15 [History] Thiamine [Vitamin B-1] 100 mg PO DAILY 04/13/15 [History] ALPRAZolam [Xanax] 0.25 mg PO TID 09/07/15 [History] oxyCODONE HCL/ACETAMINOPHEN [Oxycodone-Acetaminophen 5-325] 1 tab PO Q8H 09/07/15 [History] ARIPiprazole [Abilify] 10 mg PO DAILY 03/11/17 [History] Gabapentin [Neurontin] 300 mg PO TID 03/11/17 [History] Amiodarone [Cordarone] 200 mg PO DAILY #0 03/13/17 [Rx] Baclofen [Lioresal] 10 mg PO BID 07/09/17 [History] Albuterol Inhaler [Ventolin Hfa Inhaler] 1 - 2 puff INHALATION RT-QID PRN 03/31/18 [History] Metoprolol Tartrate [Lopressor] 25 mg PO DAILY 12/22/18 [History] Isosorbide Mononitrate ER [Imdur] 30 mg PO DAILY #30 tab.er.24h 04/03/18 [Rx] Nitroglycerin Sl Tabs [Nitrostat] 0.4 mg SUBLINGUAL Q5M PRN #20 tab 04/03/18 [Rx] Pantoprazole [Protonix] 40 mg PO DAILY #30 tablet.dr 04/03/18 [Rx] Cholecalciferol (Vitamin D3) [Vitamin D3] 2,000 unit PO DAILY 09/27/18 [History] Docusate [Colace] 100 mg PO DAILY 09/27/18 [History] Ferrous Sulfate [Iron (65 MG Elemental)] 325 mg PO BID 09/27/18 [History] Fluticasone Nasal [place] [Flonase Nasal [place]] 1 spr EA NOSTRIL DAILY 09/27/18 [History] Fluticasone/Salmeterol [Fluticasone-Salmeterol 113-14] 1 puff INHALATION RT-Q12H 09/27/18 [History] Levothyroxine Sodium [Synthroid] 100 mcg PO DAILY 09/27/18 [History] Loperamide HCl [Imodium A-D] 2 mg PO DAILY PRN 09/27/18 [History] Meclizine [Antivert] 25 mg PO TID 09/27/18 [History] Sodium Chloride Tab 1 gm PO BID 09/27/18 [History] Atorvastatin [Lipitor] 40 mg PO DAILY #30 tab 09/28/18 [Rx] Nitroglycerin Sl Tabs [Nitrostat] 0.4 mg SUBLINGUAL Q5M PRN #25 tab 09/28/18 [Rx] Follow up Appointment(s)/Referral(s): Alexei Vera MD [Primary Care Provider] - 1-2 days Bear Veliz MD [STAFF PHYSICIAN] - 10/23/18 2:00 pm Discharge Disposition: HOME SELF-CARE
[2018-09-29] MEDS ORDERED: ASPIRIN 81 MG PO SCH (09:00)
== END 2018-09-28 13:37 | disposition home or self-care (01) ==
LOC: EC 06:59 → 1SOBS 09:35
PROVIDERS: ADMIT Hospitalist; ATTEND Hospitalist
DX: R07.89 Other chest pain (principal); I08.3 Combined rheumatic disorders of mitral, aortic and tricuspid valves; I25.10 Atherosclerotic heart disease of native coronary artery without angina pectoris; I11.0 Hypertensive heart disease with heart failure; I50.9 Heart failure, unspecified; G35 Multiple sclerosis; I25.5 Ischemic cardiomyopathy; J96.10 Chronic respiratory failure, unspecified whether with hypoxia or hypercapnia; I73.9 Peripheral vascular disease, unspecified; J44.9 Chronic obstructive pulmonary disease, unspecified; M79.7 Fibromyalgia; K21.9 Gastro-esophageal reflux disease without esophagitis; E78.5 Hyperlipidemia, unspecified; K51.90 Ulcerative colitis, unspecified, without complications; M19.91 Primary osteoarthritis, unspecified site; E03.9 Hypothyroidism, unspecified; G62.9 Polyneuropathy, unspecified; G43.909 Migraine, unspecified, not intractable, without status migrainosus; R32 Unspecified urinary incontinence; R26.89 Other abnormalities of gait and mobility; E66.9 Obesity, unspecified; Z68.26 Body mass index [BMI] 26.0-26.9, adult; F41.0 Panic disorder [episodic paroxysmal anxiety]; F31.9 Bipolar disorder, unspecified; F41.9 Anxiety disorder, unspecified; G89.29 Other chronic pain; M54.9 Dorsalgia, unspecified; G56.03 Carpal tunnel syndrome, bilateral upper limbs; D64.9 Anemia, unspecified; Z99.81 Dependence on supplemental oxygen; Z79.82 Long term (current) use of aspirin; Z79.02 Long term (current) use of antithrombotics/antiplatelets; Z79.891 Long term (current) use of opiate analgesic; Z79.51 Long term (current) use of inhaled steroids; Z79.890 Hormone replacement therapy; Z79.899 Other long term (current) drug therapy; Z88.0 Allergy status to penicillin; Z99.3 Dependence on wheelchair; Z95.5 Presence of coronary angioplasty implant and graft; Z87.891 Personal history of nicotine dependence; Z95.810 Presence of automatic (implantable) cardiac defibrillator; Z86.74 Personal history of sudden cardiac arrest; I25.2 Old myocardial infarction; Z86.59 Personal history of other mental and behavioral disorders; Z86.010 Personal history of colon polyps; Z87.11 Personal history of peptic ulcer disease; Z90.49 Acquired absence of other specified parts of digestive tract; Z16.12 Extended spectrum beta lactamase (ESBL) resistance; Z87.01 Personal history of pneumonia (recurrent); Z87.81 Personal history of (healed) traumatic fracture; Z87.19 Personal history of other diseases of the digestive system; Z87.2 Personal history of diseases of the skin and subcutaneous tissue; Z82.49 Family history of ischemic heart disease and other diseases of the circulatory system; Z82.0 Family history of epilepsy and other diseases of the nervous system; Z81.1 Family history of alcohol abuse and dependence
CPT/HCPCS: 96366 ×2; 96375 ×2; 96376 ×3; 96365; 99291; 36415; 94640; 83880; 80061; 80053; 82550; 83735; 84484; 85025; 85610; 85730 ×2; 71046; G0378 ×2; C8929; J1644 ×2; J2930; J2405; J2270; Q9950; 93306

== ENCOUNTER → 2019-01-31 | Outpatient (CLI) | payer OTHER ==
--- NOTE | 2019-01-31 15:40 | CT ---
EXAMINATION TYPE: CT brain wo/w con DATE OF EXAM: 01/31/2019 COMPARISON: 09/26/2014 INDICATION: Dizziness and lightheadedness. History of multiple sclerosis. DLP: 2424.4 mGycm, Automated exposure control for dose reduction was used. CONTRAST: 100 mL Isovue-300 CT of the brain is performed utilizing 3 mm thick sections through the posterior fossa and 3 mm thick sections through the remaining calvarium. Study is performed within 24 hours of arrival to the hosp [facility]. No abnormal hyperdensity is present to suggest an acute intracranial hemorrhage. No mass lesion is evident. No acute infarcts are evident. Periventricular white matter hypodensity is present, likely on the bas is of chronic white matter ischemic change. Ventricles and sulci are appropriate for the patient age. Paranasal sinuses and mastoid air cells within the [id number] are clear. Following contrast, no abnormal enhancement is evident. IMPRESSIONS: 1. Chronic appearing periventricular white matter changes. This could be related to multiple sclero sis or microvascular ischemic changes. 2. No suspicious enhancing plaques are evident.
== END ==
LOC: RADCTMAIN 14:22
PROVIDERS: ATTEND Psychiatry & Neurology Neurology
DX: G25.1 Drug-induced tremor (principal); G35 Multiple sclerosis
CPT/HCPCS: 70470; Q9967

== ENCOUNTER 2019-02-06 20:27 | Inpatient (IN) | payer OTHER ==
[2019-02-06] MEDS ORDERED: SODIUM CHLORIDE 0.9% 500 ML 500 ML IV STA (20:44)
[2019-02-06] MEDS ORDERED: ONDANSETRON 4 MG/2 ML VIAL IVP STA ×2 (20:44→22:23)
[2019-02-06] MEDS ORDERED: MORPHINE SULFATE 2 MG/ML SYRINGE IVP STA ×2 (20:44→23:19)
[2019-02-06 21:15] LABS: Basophils % (A) 0 %; Eosinophils # (A) 0.2 k/uL (0-0.7); Eosinophils % (A) 2 %; HCT 27.4 % (34.0-46.0); HGB 8.7 gm/dL (11.4-16.0); Hypochromasia Slight; Lymphocytes # (A) 1.2 k/uL (1.0-4.8); Lymphocytes % (A) 14 %; MCH 32.3 pg (25.0-35.0); MCHC 31.6 g/dL (31.0-37.0); MCV 102.2 fL (80.0-100.0); Macrocytosis Slight; Monocytes # (A) 0.5 k/uL (0-1.0); Monocytes % (A) 6 %; Neutrophils % (A) 74 %; Platelet Count 385 k/uL (150-450); RBC 2.68 m/uL (3.80-5.40); RDW 13.1 % (11.5-15.5); WBC 8.1 k/uL (3.8-10.6)
[2019-02-06 21:23] LABS: ALT 24 U/L (9-52); AST 32 U/L (14-36); African American GFR (CKD) >90 (>60 ml/min/1.73 sqM); Alkaline Phosphatase 78 U/L (38-126); Anion Gap 5 mmol/L; Blood Urea Nitrogen 10 mg/dL (7-17); Calcium 8.4 mg/dL (8.4-10.2); Carbon Dioxide 31 mmol/L (22-30); Chloride 98 mmol/L (98-107); Glucose 102 mg/dL (74-99); Magnesium 1.8 mg/dL (1.6-2.3); Sodium 134 mmol/L (137-145); Total Bilirubin 0.4 mg/dL (0.2-1.3); Total Protein 5.8 g/dL (6.3-8.2)
--- NOTE | 2019-02-06 21:25 | XR ---
EXAMINATION TYPE: XR chest 2V DATE OF EXAM: 02/06/2019 COMPARISON: 09/27/2018 HISTORY: Weakness TECHNIQUE: Frontal and lateral views of the chest are obtained. FINDINGS: There is no heart failure nor confluent pneumonic infiltrate. There is left axillary pacem jared. There is no pleural effusion. There is some 25% anterior wedging of a mid thoracic vertebra unc hanged. IMPRESSION: No active cardiopulmonary disease. Inspiration decreased compared to last exam.
[2019-02-06 21:37] LABS: INR 1.1 (<1.2); Partial Thromboplastin Time 25.9 sec (22.0-30.0); Prothrombin Time 11.4 sec (9.0-12.0)
[2019-02-06 22:40] LABS: Appearance,Urine Cloudy (Clear); Bacteria,Urine Rare /hpf; Bilirubin,Urine Negative (Negative); Blood,Urine Negative (Negative); Color,Urine Yellow; Glucose,Urine (UA) Negative (Negative); Ketones,Urine Trace (Negative); Leukocyte Esterase,Urine Negative (Negative); Mucus,Urine Rare /hpf; Nitrite,Urine Negative (Negative); PH, Urine 5.5 (5.0-8.0); Protein,Urine Trace (Negative); Specific Gravity,Urine 1.018 (1.001-1.035); Squamous Epithelial Cell,Urine 10 /hpf (0-4); Urobilinogen,Urine <2.0 mg/dL (<2.0); WBC,Urine 1 /hpf (0-5)
[2019-02-06] MEDS ORDERED: NITROGLYCERIN SL TABS 0.4 MG TAB SUBLINGUAL PRN (23:16)
--- NOTE | 2019-02-06 23:16 | ED ---
General Adult HPI - General Source: patient, EMS Mode of arrival: EMS Limitations: no limitations <Kailey Cazares - Last Filed: 02/06/19 23:08> <Rick Sousa - Last Filed: 02/06/19 23:26> - General Chief complaint: Weakness Stated complaint: Weakness Time Seen by Provider: 02/06/19 20:36 - History of Present Illness Initial comments: 63-year-old female patient presents to the emergency department today for e valuation of weakness, nausea, chest pain, and shortness of breath. Patient states symptoms have been present over the last 2-3 days. Patient states she has a history of multiple sclerosis. She denies any fever or chills. Denies any hematuria, dysuria, urinary frequency, urinary urgency. Denies abdominal pain, constipation, or diarrhea. Denies any sweats or dizziness. Denies any cough or congestion. Patient denies any recent rash, back pain, numbness, tingling, headache, visual changes, or any other complaints. (Kailey Cazares) - Related Data Home Medications Medication Instructions Recorded Confirmed Folic Acid 1 mg PO DAILY 04/08/14 02/06/19 Aspirin EC [Ecotrin Low Dose] 81 mg PO DAILY 09/23/14 02/06/19 Primidone [Mysoline] 50 mg PO BID 04/12/15 02/06/19 Albuterol Nebulized [Ventolin 2.5 mg INHALATION RT-Q6H PRN 04/13/15 02/06/19 Nebulized] Thiamine [Vitamin B-1] 100 mg PO DAILY 04/13/15 02/06/19 ALPRAZolam [Xanax] 0.25 mg PO TID 09/07/15 02/06/19 oxyCODONE HCL/ACETAMINOPHEN 1 tab PO Q8H 09/07/15 02/06/19 [Oxycodone-Acetaminophen 5-325] ARIPiprazole [Abilify] 10 mg PO DAILY 03/11/17 02/06/19 Gabapentin [Neurontin] 300 mg PO TID 03/11/17 02/06/19 Baclofen [Lioresal] 10 mg PO BID 07/09/17 02/06/19 Albuterol Inhaler [Ventolin Hfa 2 puff INHALATION RT-TID PRN 03/31/18 02/06/19 Inhaler] Cholecalciferol (Vitamin D3) 2,000 unit PO DAILY 09/27/18 02/06/19 [Vitamin D3] Ferrous Sulfate [Iron (65 MG 325 mg PO BID 09/27/18 02/06/19 Elemental)] Fluticasone Nasal [place] [Flonase 1 spr EA NOSTRIL DAILY PRN 09/27/18 02/06/19 Nasal [place]] Levothyroxine Sodium [Synthroid] 100 mcg PO DAILY 09/27/18 02/06/19 Meclizine [Antivert] 25 mg PO QID 09/27/18 02/06/19 Amiodarone [Cordarone] 100 mg PO DAILY 02/06/19 02/06/19 Isosorbide Mononitrate ER [Imdur] 30 mg PO HS 02/06/19 02/06/19 Previous Rx's Medication Instructions Recorded Clopidogrel [Plavix] 75 mg PO DAILY #0 02/21/14 Nitroglycerin Sl Tabs [Nitrostat] 0.4 mg SUBLINGUAL Q5M PRN #20 tab 04/03/18 Pantoprazole [Protonix] 40 mg PO DAILY #30 tablet. 04/03/18 Atorvastatin [Lipitor] 40 mg PO DAILY #30 tab 09/28/18 Allergies Allergy/AdvReac Type Severity Reaction Status Date / Time Penicillins Allergy Swelling Verified 02/06/19 20:59 Review of Systems ROS Other: All systems not noted in ROS Statement are negative. <Kailey Cazares - Last Filed: 02/06/19 23:08> ROS Other: All systems not noted in ROS Statement are negative. <Rick Suosa - Last Filed: 02/06/19 23:26> ROS Statement: Those systems with pertinent positive or pertinent negative responses have been documented in the HPI. Past Medical History Past Medical History: Coronary Artery Disease (CAD), Chest Pain / Angina, Heart Failure, COPD, Eye Disorder, Fibromyalgia, GERD/Reflux, Hyperlipidemia, Hypertension, Myocardial Infarction ([place]), Musculoskeletal Disorder, Neurologic Disorder, Osteoarthritis (OA), Pneumonia, Respiratory Disorder, Skin Disorder, Thyroid Disorder, Vascular Disorder Additional Past Medical History / Comment(s): 11/2012 [place] with cardiac arrest/vtac h, chronic respiratory failure-uses home O2 prn 2-3L/NC, tracheobronchitis, tricuspid regurgitation, multiple sclerosis, neuropathy bilateral legs/feet, chronic back pain, DDD, migraines, bilateral carpal tunnel syndrome, past L/R rib fractures, past L hip fracture with surgery, PUD with ulcer rupture with surgery, peritonitis, pancreatitis, IBS/ ulcerative colitis, chronic anemia, UTIs, urinary incontinence, endometriosis, hypothyroid, R cataract and L eye cataract forming again, PVD, L leg cellulitis, Last Myocardial Infarction Date:: 2012 History of Any Multi-Drug Resistant Organisms: ESBL Date of last positivie culture/infection: 02/18/2014 MDRO Source:: Blood and Urine E. coli ESBL Past Surgical History: AICD, Appendectomy, Heart Catheterization, Heart Cathete rization With Stent, Orthopedic Surgery, Pacemaker Additional Past Surgical History / Comment(s): Cardioversion, Laparotomy for ruptured gastric ulcer, R foot fracture with surgery, L hip fracture with surgery-has plate and screw, EGD, colonoscopies with bening polypectomy. Past Anesthesia/Blood Transfusion Reactions: No Reported Reaction Additional Past Anesthesia/Blood Transfusion Reaction / Comment(s): Pt has received blood in past without reaction. Date of Last Stent Placement:: 11/2012 Type of Cardiac Device: Permanent Pacemaker, AICD Device Placement Date:: 2012 Past Psychological History: Anxiety, Bipolar, Depression, Panic Disorder Smoking Status: Former smoker Past Alcohol Use History: None Reported Past Drug Use History: None Reported - Past Family History Mother Family Medical History: Musculoskeletal Disorder Additional Family Medical History / Comment(s): MS Sister(s) Family Medical History: Myocardial Infarction ([place]) Additional Family Medical History / Comment(s): SISTER ALSO HAS MS Brother(s) Family Medical History: Musculoskeletal Disorder, Neurologic Disorder Additional Family Medical History / Comment(s): MS Father Additional Family Medical History / Comment(s): ETOH abuse, back surgery <Kailey Cazares - Last Filed: 02/06/19 23:08> General Exam Limitations: no limitations General appearance: alert, in no apparent distress, other (This is a well- developed, well-nourished adult female patient in no acute distress. Vital signs upon presentation are temperature 97.8F, pulse 76, respirations 18, blood pressure 129/71, pulse ox 95% on room air.) Eye exam: Present: normal appearance, PERRL, EOMI. Absent: scleral icterus, conjunctival injection, periorbital swelling ENT exam: Present: normal exam, normal oropharynx, mucous membranes moist Respiratory exam: Present: normal lung sounds bilaterally. Absent: respiratory distress, wheezes, rales, rhonchi, stridor Cardiovascular Exam: Present: regular rate, normal rhythm, normal heart sounds. Absent: systolic murmur, diastolic murmur, rubs, gallop, clicks GI/Abdominal exam: Present: soft, normal bowel sounds. Absent: distended, tenderness, guarding, rebound, rigid Neurological exam: Present: alert, oriented X3, CN II-XII intact, other (Strength in all 4 extremities is 4/5.) Psychiatric exam: Present: normal affect, normal mood Skin exam: Present: warm, dry, intact, pallor. Absent: normal color, rash <Kailey Cazares - Last Filed: 02/06/19 23:08> Course <Rick Sousa - Last Filed: 02/06/19 23:26> Vital Signs 02/06/19 02/06/19 02/06/19 20:29 21:21 22:10 Temperature 97.8 F Pulse Rate 76 74 76 Respiratory 18 18 18 Rate Blood Pressure 129/71 123/74 145/78 O2 Sat by Pulse 95 98 100 Oximetry - Reevaluation(s) Reevaluation #1: 02/06/19 23:25 And P supervision: I did proceed evaluate this case and discussed with Dr. Wadsworth who has referred it to Dr. Bay. Do agree with the assessment and plan (Rick Sousa) EKG Findings - EKG Comments: EKG Findings:: EKG obtained at 2057 shows sinus rhythm with occasional PVCs. Ventricular rate is 76, OK interval 162, QRS duration 96, QT 396, QTc 445. No evidence of ST elevation or depression. <Kailey Cazares - Last Filed: 02/06/19 23:08> Medical Decision Making - Lab Data Result diagrams: 02/06/19 21:02 02/06/19 21:02 - Radiology Data Radiology results: report reviewed, image reviewed <Kailey Cazares - Last Filed: 02/06/19 23:08> - Lab Data Result diagrams: 02/06/19 21:02 02/06/19 21:02 <Rick Sousa - Last Filed: 02/06/19 23:26> - Medical Decision Making 63-year-old female patient presented to the emergency department today for evaluation of weakness, chest pain, shortness of breath, nausea. Physical examination revealed soft nontender abdomen. Lungs are clear to auscultation with good air movement. Vital signs are satisfactory. EKG shows no ST elevation or depression. Chest x-ray shows no acute cardiopulmonary process. Urinalysis shows no evidence for infection. Given chest pain and nausea we will admit for serial troponins and evaluation by cardiology tomorrow. Patient's he was also found to be low at 8.7 this is a decrease from September at 13.7. Patient denies any hematochezia, melena, or hematemesis. (Kailey Cazares) - Lab Data Lab Results 02/06/19 02/06/19 02/06/19 Range/Units 21:02 21:02 21:02 WBC 8.1 (3.8-10.6) k/uL RBC 2.68 L (3.80-5.40) m/uL Hgb 8.7 L (11.4-16.0) gm/dL Hct 27.4 L (34.0-46.0) % MCV 102.2 H (80.0-100.0) fL MCH 32.3 (25.0-35.0) pg MCHC 31.6 (31.0-37.0) g/dL RDW 13.1 (11.5-15.5) % Plt Count 385 (150-450) k/uL Neutrophils % 74 % Lymphocytes % 14 % Monocytes % 6 % Eosinophils % 2 % Basophils % 0 % Neutrophils # 6.0 (1.3-7.7) k/uL Lymphocytes # 1.2 (1.0-4.8) k/uL Monocytes # 0.5 (0-1.0) k/uL Eosinophils # 0.2 (0-0.7) k/uL Basophils # 0.0 (0-0.2) k/uL Hypochromasia Slight Macrocytosis Slight PT (9.0-12.0) sec INR (<1.2) APTT (22.0-30.0) sec Sodium 134 L (137-145) mmol/L Potassium 4.0 (3.5-5.1) mmol/L Chloride 98 (98-107) mmol/L Carbon Dioxide 31 H (22-30) mmol/L Anion Gap 5 mmol/L BUN 10 (7-17) mg/dL Creatinine 0.71 (0.52-1.04) mg/dL Est GFR (CKD-EPI)AfAm >90 (>60 ml/min/1.73 sqM) Est GFR (CKD-EPI)NonAf >90 (>60 ml/min/1.73 sqM) Glucose 102 H (74-99) mg/dL Plasma Lactic Acid Zaki 1.2 (0.7-2.0) mmol/L Calcium 8.4 (8.4-10.2) mg/dL Magnesium 1.8 (1.6-2.3) mg/dL Total Bilirubin 0.4 (0.2-1.3) mg/dL AST 32 (14-36) U/L ALT 24 (9-52) U/L Alkaline Phosphatase 78 (38-126) U/L Troponin I (0.000-0.034) ng/mL Total Protein 5.8 L (6.3-8.2) g/dL Albumin 3.0 L (3.5-5.0) g/dL Urine Color Urine Appearance (Clear) Urine pH (5.0-8.0) Ur Specific Terry (1.001-1.035) Urine Protein (Negative) Urine Glucose (UA) (Negative) Urine Ketones (Negative) Urine Blood (Negative) Urine Nitrite (Negative) Urine Bilirubin (Negative) Urine Urobilinogen (<2.0) mg/dL Ur Leukocyte Esterase (Negative) Urine WBC (0-5) /hpf Ur Squamous Epith Cells (0-4) /hpf Urine Bacteria (None) /hpf Urine Mucus (None) /hpf 02/06/19 02/06/19 02/06/19 Range/Units 21:02 21:02 22:19 WBC (3.8-10.6) k/uL RBC (3.80-5.40) m/uL Hgb (11.4-16.0) gm/dL Hct (34.0-46.0) % MCV (80.0-100.0) fL MCH (25.0-35.0) pg MCHC (31.0-37.0) g/dL RDW (11.5-15.5) % Plt Count (150-450) k/uL Neutrophils % % Lymphocytes % % Monocytes % % Eosinophils % % Basophils % % Neutrophils # (1.3-7.7) k/uL Lymphocytes # (1.0-4.8) k/uL Monocytes # (0-1.0) k/uL Eosinophils # (0-0.7) k/uL Basophils # (0-0.2) k/uL Hypochromasia Macrocytosis PT 11.4 (9.0-12.0) sec INR 1.1 (<1.2) APTT 25.9 (22.0-30.0) sec Sodium (137-145) mmol/L Potassium (3.5-5.1) mmol/L Chloride (98-107) mmol/L Carbon Dioxide (22-30) mmol/L Anion Gap mmol/L BUN (7-17) mg/dL Creatinine (0.52-1.04) mg/dL Est GFR (CKD-EPI)AfAm (>60 ml/min/1.73 sqM) Est GFR (CKD-EPI)NonAf (>60 ml/min/1.73 sqM) Glucose (74-99) mg/dL Plasma Lactic Acid Zaki (0.7-2.0) mmol/L Calcium (8.4-10.2) mg/dL Magnesium (1.6-2.3) mg/dL Total Bilirubin (0.2-1.3) mg/dL AST (14-36) U/L ALT (9-52) U/L Alkaline Phosphatase (38-126) U/L Troponin I <0.012 (0.000-0.034) ng/mL Total Protein (6.3-8.2) g/dL Albumin (3.5-5.0) g/dL Urine Color Yellow Urine Appearance Cloudy H (Clear) Urine pH 5.5 (5.0-8.0) Ur Specific Terry 1.018 (1.001-1.035) Urine Protein Trace H (Negative) Urine Glucose (UA) Negative (Negative) Urine Ketones Trace H (Negative) Urine Blood Negative (Negative) Urine Nitrite Negative (Negative) Urine Bilirubin Negative (Negative) Urine Urobilinogen <2.0 (<2.0) mg/dL Ur Leukocyte Esterase Negative (Negative) Urine WBC 1 (0-5) /hpf Ur Squamous Epith Cells 10 H (0-4) /hpf Urine Bacteria Rare H (None) /hpf Urine Mucus Rare H (None) /hpf - Radiology Data Two-view x-ray of the chest is obtained. Report was reviewed in its entirety. Impression by Dr. Roman shows no active cardiopulmonary disease. Inspiration decreased compared to last exam. (Kailey Cazares) Disposition Decision to Admit Reason: Admit from [facility] Decision Date: 02/06/19 Decision Time: 23:16 <Kailey Cazares - Last Filed: 02/06/19 23:08> <Rick Sousa - Last Filed: 02/06/19 23:26> Clinical Impression: Chest pain, Weakness, Anemia Disposition: ADMITTED IP TO [facility] Condition: Serious Referrals: Alexei Vera MD [Primary Care Provider] - 1-2 days
[2019-02-06] MEDS ORDERED: PANTOPRAZOLE 40 MG/10 ML VIAL IVP STA (23:27)
[2019-02-07] MEDS: MORPHINE SULFATE 4 MG/ML SYRINGE IVP PRN ×2 (03:41→20:45)
[2019-02-07 04:18] LABS: Cholesterol 109 mg/dL (<200); HDL Cholesterol 51 mg/dL (40-60); LDL Cholesterol,Calculated 44 mg/dL (0-99); Triglycerides 68 mg/dL (<150)
[2019-02-07] MEDS ORDERED: METOPROLOL TARTRATE 12.5 MG TAB PO SCH (09:00)
[2019-02-07] MEDS ORDERED: AMIODARONE 50 MG TAB PO SCH (09:00)
[2019-02-07] MEDS ORDERED: ATORVASTATIN 40 MG TAB PO SCH (09:00)
[2019-02-07] MEDS ORDERED: ASPIRIN 81 MG PO SCH (09:00)
[2019-02-07] MEDS: SODIUM CHLORIDE 0.9% 1,000 ML IV SCH ×2 (09:01→17:14)
[2019-02-07] MEDS ORDERED: ALBUTEROL NEBULIZED 2.5 MG/3 ML INHALATION PRN ×2 (10:09)
[2019-02-07] MEDS ORDERED: NITROGLYCERIN SL TABS 0.4 MG TAB SUBLINGUAL PRN (10:09)
--- NOTE | 2019-02-07 10:10 | US ---
EXAMINATION TYPE: US abdomen complete DATE OF EXAM: 02/07/2019 COMPARISON: NONE CLINICAL HISTORY: 63-year-old female with abdominal pain. Pain. TECHNIQUE: Multiple sonographic images of the abdomen are obtained. FINDINGS: Furnace Checker notes: Exam limitations due to patient unable to roll due to pain. EXAM MEASUREMENTS: Liver Length: 17.2 cm Gallbladder Wall: 4 mm CBD: .4 cm Spleen: 10.2 cm Right Kidney: 7.7 x 3.5 x 3.2 cm Left Kidney: 8.0 x 3.6 x 3.1 cm, Pancreas: Obscured by large complex solid cystic mass measuring 7.4 x 9.6 x 10.4cm. Liver: Some images suggest a slight nodular contour. Mild perihepatic ascites noted. Overall heterog eneous echotexture. Gallbladder: Mildly thickened wall. A 1 cm echogenic focus seen. No abnormal gallbladder distention. Evidence for sonographic Dennison's sign: Yes CBD: wnl Spleen: wnl Right Kidney: Atrophic and limited due to bowel gas. Left Kidney: Atrophic Upper IVC: wnl Abd Aorta: wnl Furnace Checker notes: Ascites is visualized. Complex mass seen area of pancreas measuring 7.6 x 9.4 x 1. 5 cm. IMPRESSION: 1. Possible underlying cirrhosis. Mild perihepatic ascites. 2. Mildly thickened gallbladder wall is nonspecific. Suspect a 1 cm gallstone. There is no abnormal g allbladder distention but sonographic Dennison sign is reported positive. This could be secondary to re ferred pain. If concern for acute cholecystitis, HIDA scan can BE considered. 3. Largest complex mass measuring up to 10.4 cm in the mid abdomen obscuring the pancreas of uncertai n origin and etiology. Further contrast enhanced CT evaluation is recommended. 4. No biliary ductal dilatation.
[2019-02-07] MEDS ORDERED: ONDANSETRON 4 MG/2 ML VIAL IVP PRN (10:36)
[2019-02-07] MEDS: oxyCODONE-APAP 5-325MG 1 EACH TAB PO SCH ×2 (10:46→17:13)
[2019-02-07] MEDS: ALPRAZolam 0.25 MG TAB PO SCH ×3 (10:47→20:45)
[2019-02-07] MEDS: BACLOFEN 10 MG TAB PO SCH ×2 (10:56→20:46)
[2019-02-07] MEDS: GABAPENTIN 300 MG CAP PO SCH ×3 (10:57→20:45)
[2019-02-07] MEDS: PRIMIDONE 50 MG TAB PO SCH ×2 (10:57→20:46)
[2019-02-07] MEDS ORDERED: IOPAMIDOL CONTRAST (ORAL USE) VIAL PO PRN (10:58)
[2019-02-07] MEDS ORDERED: LEVOTHYROXINE 100 MCG TAB PO SCH (11:00)
[2019-02-07] MEDS ORDERED: AMIODARONE 100 MG TAB PO SCH (11:00)
[2019-02-07] MEDS ORDERED: ARIPiprazole 10 MG TAB PO SCH (11:00)
[2019-02-07] MEDS ORDERED: FOLIC ACID 1 MG TAB PO SCH (11:00)
[2019-02-07] MEDS ORDERED: PANTOPRAZOLE 40 MG TABLET PO SCH (11:00)
[2019-02-07 11:24] LABS: Amylase 139 U/L (30-110)
[2019-02-07] MEDS: MECLIZINE 25 MG TAB PO SCH ×3 (13:23→20:46)
--- NOTE | 2019-02-07 13:29 | CT ---
EXAMINATION TYPE: CT abdomen pelvis w con DATE OF EXAM: 02/07/2019 COMPARISON: HISTORY: Mass on US CT DLP: 1000.9 mGycm CONTRAST: CT scan of the abdomen and pelvis is performed with Oral Contrast and with IV Contrast, patient injec shin with 100 mL of Isovue 300. FINDINGS: LUNG BASES-: No visible nodule. No infiltrate. LIVER/GB: No calcified gallstones. No space occupying hepatic lesion. Biliary tree is of normal ca liber. PANCREAS: The pancreas appears atrophic with mild pancreatic ductal prominence. No distinct pancreati c masses appreciated. SPLEEN: No splenic enlargement. No lesion seen. ADRENALS: No nodule. No thickening. KIDNEYS/BLADDER: No hydronephrosis. No nephrolithiasis. No distinct renal mass. Urinary bladder g rossly unremarkable. BOWEL: There is a large partially cystic partially solid mass which appears to arise from the greater curvature of the stomach which measures an estimated 18 x 10.7 x 11.2 cm. There is displacement of t he stomach with the luminal narrowing and near obstruction. The mass appears to infiltrate into the a djacent duodenum. Small and large bowel appear to be of normal caliber. GENITAL ORGANS: No gross abnormality. LYMPH NODES: No greater than 1cm abdominal or pelvic lymph nodes are appreciated. AORTA: No significant abnormality. OSSEOUS STRUCTURES: No significant abnormality is seen. OTHER: Ascites upper abdomen and cul-de-sac. IMPRESSION: 1. There is a large partially cystic partially solid mass which appears to arise from the greater cu rvature of the stomach which measures an estimated 18 x 10.7 x 11.2 cm. There is displacement of the stomach with the luminal narrowing and near obstruction. Suspect malignancy. Possible sarcoma. 2. Ascites.
[2019-02-07 14:26] VITALS: BMI 23.8
--- NOTE | 2019-02-07 15:50 | P.GSCN ---
<Anabela Mccollum - Last Filed: 02/07/19 15:49> History of Present Illness Consult date: 02/07/19 Reason for Consult: abdominal pain, abdominal mass, gallstone Requesting physician: Adolfo Bay History of present illness: CHIEF COMPLAINT: weakness, nausea HISTORY OF PRESENT ILLNESS: 63-year-old female who presented to the emergency room with a chief complaint of generalized malaise, weakness, chest pain, nausea, and abdominal pain. Patient states she has been feeling unwell for the past 7-10 days but it has worsened over the past 2-3 days. She reports nausea but no episodes of emesis at home. She states her abdomen feels "sore". She reports decreased oral intake over the past week. Denies change in bowel habits. Denies fever or chills. PAST MEDICAL HISTORY: See list. PAST SURGICAL HISTORY: See list. MEDICATIONS: See list. ALLERGIES: See list. SOCIAL HISTORY: History of ETOH abuse. REVIEW OF SYSTEMS: CONSTITUTIONAL: Denies fever or chills. reports generalized weakness. HEENT: Denies blurred vision, vision changes, or eye pain. Denies hemoptysis ENDOCRINE: Denies heat or cold intolerance. CARDIOVASCULAR: reports chest discomfort prior to hospitalization RESPIRATORY: No shortness of breath. GASTROINTESTINAL: see HPI for pertinent findings. NEURO: Denies history of seizures. PSYCH: No depression or suicidal ideation HEMATOLOGIC: Denies bleeding disorders. LYMPHATIC: The patient denies any lumps and bumps around the neck. GENITOURINARY: Denies any blood in urine or increased urinary frequency. MUSCULOSKELETAL: Denies decreased range of motion beyond patients baseline. SKIN: Denies pruitis. Denies rash. PHYSICAL EXAM: VITAL SIGNS: reviewed GENERAL: Well-developed in no acute distress. HEENT: No sclera icterus. Extraocular movements grossly intact. Moist buccal mucosa. Head is atraumatic, normocephalic. Hears conversational speech. No nasal drainage. NECK: Supple without lymphadenopathy. CHEST: Non-labored respirations and equal bilateral excursions. CARDIOVASCULAR: Regular rate with regular rhythm. Palpable 2+ radial pulses. ABDOMEN: Soft. Nondistended. Mild tenderness upon palpation. Positive sounds. No peritoneal signs. MUSCULOSKELETAL: No clubbing, cyanosis or edema. NEUROLOGIC: No focal or lateralizing signs. Cranial nerves II through XII grossly intact. PSYCH: Appropriate affect. Alert and oriented to person, place and time. SKIN: Well perfused. Good skin turgor. LABORATORY DATA: WBC 8.1. Hemoglobin 8.7. Hemoglobin was noted to be 13.7 in September 2018. sodium 134. Potassium 4.0. BUN 10. Creatinine 0.71. Bilirubin 0.4. AST 32. ALT 24. Amylase 139. Lipase 491. IMAGIN. Abdominal ultrasound: Pancreas obscured by large complex solid cystic mass. Mild perihepatic ascites noted. Mildly thickened gallbladder wall. No abnormal gallbladder distention. Bowel duct within normal limits. Impression reveals possible underlying cirrhosis. Suspected 1 cm gallstone. No abnormal gallbladder distention. Largest complex mass measuring up to 10.4 cm in the mid abdomen obscuring the pancreas of uncertain origin in etiology. No biliary ductal dilation. 2. CT abdomen and pelvis: there is a large partially cystic partially solid mass which appears to arise from the greater curvature of the stomach which measures an estimated 18 x 10.7 x 11.2 cm. There is displacement of the stomach with luminal narrowing and near obstruction. Suspect malignancy. Ascites. ASSESSMENT: 1. Abdominal pain, nausea, weakness 2. Large stomach mass, measuring 18 x 10.7 x 11.2 cm, causing displacement of t he stomach with luminal narrowing and near obstruction 3. Ascites 4. Anemia, may be secondary to suspected malignancy 5. Elevated pancreatic enzymes 6. Cholelithiasis PLAN: Case discussed with Dr. Taylor. Due to complexity of abdominal mass, no surgical intervention recommended at current facility. Recommend transfer to tertiary care center for evaluation. Case discussed with Dr. Bay who will arrange transfer. Discussed with patient in detail at the bedside. Nurse practitioner note has been reviewed by physician. Signing provider agrees with the documented findings, assessment, and plan of care. Past Medical History Past Medical History: Coronary Artery Disease (CAD), Chest Pain / Angina, Heart Failure, COPD, Eye Disorder, Fibromyalgia, GERD/Reflux, Hyperlipidemia, Hypertension, Myocardial Infarction (MO), Musculoskeletal Disorder, Neurologic Disorder, Osteoarthritis (OA), Pneumonia, Respiratory Disorder, Skin Disorder, Thyroid Disorder, Vascular Disorder Additional Past Medical History / Comment(s): 11/2012 MO with cardiac arrest/vtach, chronic respiratory failure-uses home O2 prn 2-3L/NC, tracheobronchitis, tricuspid regurgitation, multiple sclerosis, neuropathy bilateral legs/feet, chronic back pain, DDD, migraines, bilateral carpal tunnel syndrome, past L/R rib fractures, past L hip fracture with surgery, PUD with ulcer rupture with surgery, peritonitis, pancreatitis, IBS/ ulcerative colitis, chronic anemia, UTIs, urinary incontinence, endometriosis, hypothyroid, R cataract and L eye cataract forming again, PVD, L leg cellulitis, Last Myocardial Infarction Date:: 2012 History of Any Multi-Drug Resistant Organisms: ESBL Year Discovered:: 02/18/2014 MDRO Source:: Blood and Urine E. coli ESBL Past Surgical History: AICD, Appendectomy, Heart Catheterization, Heart Catheterization With Stent, Orthopedic Surgery, Pacemaker Additional Past Surgical History / Comment(s): Cardioversion, Laparotomy for ruptured gastric ulcer, R foot fracture with surgery, L hip fracture with surgery-has plate and screw, EGD, colonoscopies with bening polypectomy. Past Anesthesia/Blood Transfusion Reactions: No Reported Reaction Additional Past Anesthesia/Blood Transfusion Reaction / Comm: Pt has received blood in past without reaction. Date of Last Stent Placement:: 11/2012 Type of Cardiac Device: Permanent Pacemaker, AICD Device Placement Date:: 2012 Past Psychological History: Anxiety, Bipolar, Depression, Panic Disorder Additional Psychological History / Comment(s): pt. wouldn't stated she does'nt know how she ended up with a legal guardian shweta cooper.pt stated she lives at [facility] -has help come in to do cleaning,cooking,bathing. Smoking Status: Former smoker Past Alcohol Use History: None Reported Additional Past Alcohol Use History / Comment(s): hx. alcohol abuse-last drank 12 yrs. ago patient is a smoker one pack per day for 40 years and quit 15 days ago. She has history of marijuana use in the past but none at this time. She also has history of alcohol abuse but quit 12 years ago. She is currently living on her own and has home care and assistance and plan to return there at the time of discharge. Past Drug Use History: None Reported - Past Family History Mother Family Medical History: Musculoskeletal Disorder Additional Family Medical History / Comment(s): MS Sister(s) Family Medical History: Myocardial Infarction (MO) Additional Family Medical History / Comment(s): SISTER ALSO HAS MS Brother(s) Family Medical History: Musculoskeletal Disorder, Neurologic Disorder Additional Family Medical History / Comment(s): MS Father Additional Family Medical History / Comment(s): ETOH abuse, back surgery Medications and Allergies Home Medications Medication Instructions Recorded Confirmed Type Clopidogrel [Plavix] 75 mg PO DAILY #0 02/21/14 02/06/19 Rx Folic Acid 1 mg PO DAILY 04/08/14 02/06/19 History Aspirin EC [Ecotrin Low Dose] 81 mg PO DAILY 09/23/14 02/06/19 History Primidone [Mysoline] 50 mg PO BID 04/12/15 02/06/19 History Albuterol Nebulized [Ventolin 2.5 mg INHALATION RT-Q6H PRN 04/13/15 02/06/19 History Nebulized] Thiamine [Vitamin B-1] 100 mg PO DAILY 04/13/15 02/06/19 History ALPRAZolam [Xanax] 0.25 mg PO TID 09/07/15 02/06/19 History oxyCODONE HCL/ACETAMINOPHEN 1 tab PO Q8H 09/07/15 02/06/19 History [Oxycodone-Acetaminophen 5-325] ARIPiprazole [Abilify] 10 mg PO DAILY 03/11/17 02/06/19 History Gabapentin [Neurontin] 300 mg PO TID 03/11/17 02/06/19 History Baclofen [Lioresal] 10 mg PO BID 07/09/17 02/06/19 History Albuterol Inhaler [Ventolin Hfa 2 puff INHALATION RT-TID PRN 03/31/18 02/06/19 History Inhaler] Nitroglycerin Sl Tabs [Nitrostat] 0.4 mg SUBLINGUAL Q5M PRN #20 tab 04/03/18 02/06/19 Rx Pantoprazole [Protonix] 40 mg PO DAILY #30 tablet. 04/03/18 02/06/19 Rx Cholecalciferol (Vitamin D3) 2,000 unit PO DAILY 09/27/18 02/06/19 History [Vitamin D3] Ferrous Sulfate [Iron (65 MG 325 mg PO BID 09/27/18 02/06/19 History Elemental)] Fluticasone Nasal [place] [Flonase 1 spr EA NOSTRIL DAILY PRN 09/27/18 02/06/19 History Nasal [place]] Levothyroxine Sodium [Synthroid] 100 mcg PO DAILY 09/27/18 02/06/19 History Meclizine [Antivert] 25 mg PO QID 09/27/18 02/06/19 History Atorvastatin [Lipitor] 40 mg PO DAILY #30 tab 09/28/18 02/06/19 Rx Amiodarone [Cordarone] 100 mg PO DAILY 02/06/19 02/06/19 History Isosorbide Mononitrate ER [Imdur] 30 mg PO HS 02/06/19 02/06/19 History Allergies Allergy/AdvReac Type Severity Reaction Status Date / Time Penicillins Allergy Swelling Verified 02/06/19 20:59 Surgical - Exam Vital Signs Temp Pulse Resp BP Pulse Ox 97.8 F 76 18 129/71 95 02/06/19 20:29 02/06/19 20:29 02/06/19 20:29 02/06/19 20:29 02/06/19 20:29 Results - Labs 02/06/19 21:02 02/06/19 21:02 Abnormal Lab Results - Last 24 Hours (Table) 02/06/19 02/06/19 02/06/19 Range/Units 21:02 21:02 22:19 RBC 2.68 L (3.80-5.40) m/uL Hgb 8.7 L (11.4-16.0) gm/dL Hct 27.4 L (34.0-46.0) % MCV 102.2 H (80.0-100.0) fL Sodium 134 L (137-145) mmol/L Carbon Dioxide 31 H (22-30) mmol/L Glucose 102 H (74-99) mg/dL Total Protein 5.8 L (6.3-8.2) g/dL Albumin 3.0 L (3.5-5.0) g/dL Amylase (30-110) U/L Lipase (23-300) U/L Urine Appearance Cloudy H (Clear) Urine Protein Trace H (Negative) Urine Ketones Trace H (Negative) Ur Squamous Epith Cells 10 H (0-4) /hpf Urine Bacteria Rare H (None) /hpf Urine Mucus Rare H (None) /hpf 02/07/19 Range/Units 08:56 RBC (3.80-5.40) m/uL Hgb (11.4-16.0) gm/dL Hct (34.0-46.0) % MCV (80.0-100.0) fL Sodium (137-145) mmol/L Carbon Dioxide (22-30) mmol/L Glucose (74-99) mg/dL Total Protein (6.3-8.2) g/dL Albumin (3.5-5.0) g/dL Amylase 139 H (30-110) U/L Lipase 491 H (23-300) U/L Urine Appearance (Clear) Urine Protein (Negative) Urine Ketones (Negative) Ur Squamous Epith Cells (0-4) /hpf Urine Bacteria (None) /hpf Urine Mucus (None) /hpf Diabetes panel 02/06/19 02/07/19 Range/Units 21:02 03:28 Sodium 134 L (137-145) mmol/L Potassium 4.0 (3.5-5.1) mmol/L Chloride 98 (98-107) mmol/L Carbon Dioxide 31 H (22-30) mmol/L BUN 10 (7-17) mg/dL Creatinine 0.71 (0.52-1.04) mg/dL Glucose 102 H (74-99) mg/dL Calcium 8.4 (8.4-10.2) mg/dL AST 32 (14-36) U/L ALT 24 (9-52) U/L Alkaline Phosphatase 78 (38-126) U/L Total Protein 5.8 L (6.3-8.2) g/dL Albumin 3.0 L (3.5-5.0) g/dL Triglycerides 68 (<150) mg/dL HDL Cholesterol 51 (40-60) mg/dL Calcium panel 02/06/19 Range/Units 21:02 Calcium 8.4 (8.4-10.2) mg/dL Albumin 3.0 L (3.5-5.0) g/dL Pituitary panel 02/06/19 Range/Units 21:02 Sodium 134 L (137-145) mmol/L Potassium 4.0 (3.5-5.1) mmol/L Chloride 98 (98-107) mmol/L Carbon Dioxide 31 H (22-30) mmol/L BUN 10 (7-17) mg/dL Creatinine 0.71 (0.52-1.04) mg/dL Glucose 102 H (74-99) mg/dL Calcium 8.4 (8.4-10.2) mg/dL Adrenal panel 02/06/19 Range/Units 21:02 Sodium 134 L (137-145) mmol/L Potassium 4.0 (3.5-5.1) mmol/L Chloride 98 (98-107) mmol/L Carbon Dioxide 31 H (22-30) mmol/L BUN 10 (7-17) mg/dL Creatinine 0.71 (0.52-1.04) mg/dL Glucose 102 H (74-99) mg/dL Calcium 8.4 (8.4-10.2) mg/dL Total Bilirubin 0.4 (0.2-1.3) mg/dL AST 32 (14-36) U/L ALT 24 (9-52) U/L Alkaline Phosphatase 78 (38-126) U/L Total Protein 5.8 L (6.3-8.2) g/dL Albumin 3.0 L (3.5-5.0) g/dL Assessment and Plan (1) Abdominal mass Status: Acute Code(s): R19.00 - INTRA-ABD AND PELVIC SWELLING, MASS AND LUMP, UNSP SITE SNOMED Code(s): 224368130 <Brit Taylor - Last Filed: 02/08/19 18:31> History of Present Illness History of present illness: As above, patient will need multimodality multidisciplinary team regarding 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 May need angioembolization at a tertiary care center not available at current facility. Additionally, patient may need neoadjuvant therapy such as gleevac once tissue biopsies obtained to confirm GIST tumor Surgical - Exam Vital Signs Temp Pulse Resp BP Pulse Ox 97.8 F 76 18 129/71 95 02/06/19 20:29 02/06/19 20:29 02/06/19 20:29 02/06/19 20:29 02/06/19 20:29 Results - Labs 02/06/19 21:02 02/06/19 21:02
--- NOTE | 2019-02-07 17:13 | CONS ---
CONSULTATION DATE OF SERVICE: Joann Grimaldo is a 63-year-old elderly lady with multiple comorbid conditions, including CAD and prior myocardial infarction. This lady in 2012 had an acute inferior NM, underwent stenting of RCA with a good result. She is known to have a 40% mid LAD lesion as well. She came into the hospital mainly with complaints of abdominal and epigastric discomfort. She sees a visiting physician. Her main complaint was generalized weakness, lack of energy, epigastric and abdominal discomfort. She has multiple comorbid conditions, including anemia, recurrent UTI, and also has a question of multiple sclerosis as well. PAST MEDICAL HISTORY: Past medical history is remarkable for: 1. CAD with prior inferior NM, for which she had stenting of RCA. 2. Moderate disease in LAD. 3. She also has history of some ventricular tachycardia requiring an ICD. She sees Dr. Veliz in the outpatient setting. 4. She has a question of multiple sclerosis. 5. Hypothyroidism. 6. Hypertension. 7. Hyperlipidemia. 8. Frequent hospitalizations for what seems to be abdominal discomfort. MEDICATIONS: Medications at home include a long list: 1. Amiodarone 100 mg daily. 2. Atorvastatin 40 mg daily. 3. Mysoline. 4. Meclizine. 5. Imdur 30 mg daily. 6. Thiamine. 7. Levothyroxine 100 mcg daily. 8. Aspirin 81 mg daily. 9. Some iron supplements. ALLERGIES: PENICILLIN. REVIEW OF SYSTEMS: Remarkable for generalized weakness, lack of energy. No hematemesis, melena, genitourinary symptoms, fever with chills or cough with expectoration. PHYSICAL EXAMINATION: Blood pressure is 114/70. Pulse rate is about 84 per minute. HEENT unremarkable. Fundus was not examined by me. Neck is supple. There is no evidence of any significant JVD. I do not hear any carotid bruit. Heart exam reveals S1, S2 heard normally. There is no significant rub, murmur or gallop. Lungs reveal decent air entry. Abdomen is soft. There is mild tenderness. Bowel sounds are normal. Lower extremities reveal diminished pulses. Central nervous system is normal. EKG revealed a sinus mechanism with a right bundle branch block pattern, IVCD with nonspecific ST-T changes and evidence of old inferior NM. IMPRESSION: 1. Past history of alcoholism with episodes of pancreatitis in the past but at this time does not appear to be any pancreatitis-type picture. 2. Abdominal pain of unclear etiology. Rule out any gallbladder pathology. 3. Coronary artery disease. This is stable. There is no evidence to suggest any ongoing myocardial ischemia, troponins are normal and EKG does not reveal any acute changes. 4. Hypertension. 5. Hyperlipidemia. 6. Dehydration. RECOMMENDATIONS: I am recommending cautious hydration, resumption of medications, abdominal ultrasound and further workup in this regard. No intervention from a cardiac standpoint at this time. I discussed my thoughts in detail with the patient. Thank you very much for the consult. MMODL / IJN: [id number] /
--- NOTE | 2019-02-07 18:22 | P.HPIM ---
History of Present Illness H&P Date: 02/07/19 Chief Complaint: Abdominal pain History of present complaint: This is a 63-year-old patient who follows with visiting physicians Dr. Vera. Patient has a rather extensive medical history. Normally uses a wheelchair or a walker to get about. Chronic stable medical conditions include, oral artery disease, COPD in an ex-smoker, chronic fibromyalgia, GERD, hyperlipidemia, esse ntial hypertension, osteoarthritis, hypothyroid, chronic multiple sclerosis, peripheral neuropathy lower extremity, chronic urinary incontinence. Patient now presents with 3to4 days of increasing upper abdominal pain. slight nausea. Poor appetite. No fever no chills. Has been feeling very tired and rundown. Pain is pretty much in the upper abdomen. Does not radiate anywhere. Some associated nonspecific chest pain. Review of systems: GEN.: Tired EYES: None HEENT: None NECK: None RESPIRATORY: None CARDIOVASCULAR: As above GASTROINTESTINAL: As above GENITOURINARY: Urinary incontinence MUSCULOSKELETAL: Pain in the joints] LYMPHATICS: None HEMATOLOGICAL: None PSYCHIATRY: None NEUROLOGICAL: Chronic weakness in the legs uses a wheelchair or a walker] Physical examination: VITAL SIGNS: 98.6, 76, 18, 129/71, 95% room air-upon presentation GENERAL: Average built, propped up in bed, comfortable. EYES: Pupils equal. Conjunctiva normal. HEENT: External appearance of nose and ears normal, oral cavity grossly normal. NECK: JVD not raised; masses not palpable. HEART: First and second heart sounds are normal; no edema. LUNGS: Respiratory rate increased, decreased breath sounds. ABDOMEN: Soft, upper abdominal tenderness, no guarding or rigidity, liver spleen not palpable, no masses palpable. LYMPHATICS: No lymph nodes palpable in the axilla and neck. PSYCH: Alert and oriented x3; mood and affect normal. NEUROLOGICAL: [Cranial nerves grossly intact; no facial asymmetry, decreased power in the lower extremity. Investigations: White count 8.1 hemoglobin 8.7. History 85 potassium 4 bun 10 creatinine 0.71 Troponin I 3 negative amylase 139 lipase 491 EKG tracing personally reviewed by me-normal sinus rhythm specific T wave changes Chest x-ray film personally reviewed by me-lung perea clear Abdominal ultrasound-possible cirrhosis, mildly thickened gallbladder wall, suspect gallstone, large complex mass temperature was centimeters in the mid abdomen Assessment: -Upper abdominal pain from a abdominal mass -Anterior chest wall pain, possibly related to the abdominal pain, in a patient with known coronary artery disease -Coronary artery disease -COPD in an ex-smoker -Chronic fibromyalgia -GERD -Hyperlipidemia -Essential hypertension -Primary osteoarthritis -Hypothyroid -Chronic multiple sclerosis -Peripheral neuropathy both the lower extremity -Chronic urinary incontinence -Chronic kidney dysfunction uses a walker/wheelchair Plan: Cardiology was consulted. Based on ultrasound findings, general surgery was consulted. Home medications resumed. Patient's chest pain is probably from radiation from the abdominal pain. Past Medical History Past Medical History: Coronary Artery Disease (CAD), Chest Pain / Angina, Heart Failure, COPD, Eye Disorder, Fibromyalgia, GERD/Reflux, Hyperlipidemia, Hypertension, Myocardial Infarction (HI), Musculoskeletal Disorder, Neurologic Disorder, Osteoarthritis (OA), Pneumonia, Respiratory Disorder, Skin Disorder, Thyroid Disorder, Vascular Disorder Additional Past Medical History / Comment(s): 11/2012 HI with cardiac arrest/vtach, chronic respiratory failure-uses home O2 prn 2-3L/NC, tracheobronchitis, tricuspid regurgitation, multiple sclerosis, neuropathy bilateral legs/feet, chronic back pain, DDD, migraines, bilateral carpal tunnel syndrome, past L/R rib fractures, past L hip fracture with surgery, PUD with ulcer rupture with surgery, peritonitis, pancreatitis, IBS/ ulcerative colitis, chronic anemia, UTIs, urinary incontinence, endometriosis, hypothyroid, R cataract and L eye cataract forming again, PVD, L leg cellulitis, Last Myocardial Infarction Date:: 2012 History of Any Multi-Drug Resistant Organisms: ESBL Date of last positivie culture/infection: 02/18/2014 MDRO Source:: Blood and Urine E. coli ESBL Past Surgical History: AICD, Appendectomy, Heart Catheterization, Heart Catheterization With Stent, Orthopedic Surgery, Pacemaker Additional Past Surgical History / Comment(s): Cardioversion, Laparotomy for ruptured gastric ulcer, R foot fracture with surgery, L hip fracture with surgery-has plate and screw, EGD, colonoscopies with bening polypectomy. Past Anesthesia/Blood Transfusion Reactions: No Reported Reaction Additional Past Anesthesia/Blood Transfusion Reaction / Comment(s): Pt has received blood in past without reaction. Date of Last Stent Placement:: 11/2012 Type of Cardiac Device: Permanent Pacemaker, AICD Device Placement Date:: 2012 Past Psychological History: Anxiety, Bipolar, Depression, Panic Disorder Additional Psychological History / Comment(s): pt. wouldn't stated she does'nt know how she ended up with a legal guardian shweta cooper.pt stated she lives at [facility] -has help come in to do cleaning,cooking,bathing. Smoking Status: Former smoker Past Alcohol Use History: None Reported Additional Past Alcohol Use History / Comment(s): hx. alcohol abuse-last drank 12 yrs. ago patient is a smoker one pack per day for 40 years and quit 15 days ago. She has history of marijuana use in the past but none at this time. She also has history of alcohol abuse but quit 12 years ago. She is currently living on her own and has home care and assistance and plan to return there at the time of discharge. Past Drug Use History: None Reported - Past Family History Mother Family Medical History: Musculoskeletal Disorder Additional Family Medical History / Comment(s): MS Sister(s) Family Medical History: Myocardial Infarction (HI) Additional Family Medical History / Comment(s): SISTER ALSO HAS MS Brother(s) Family Medical History: Musculoskeletal Disorder, Neurologic Disorder Additional Family Medical History / Comment(s): MS Father Additional Family Medical History / Comment(s): ETOH abuse, back surgery Medications and Allergies Home Medications Medication Instructions Recorded Confirmed Type Clopidogrel [Plavix] 75 mg PO DAILY #0 02/21/14 02/06/19 Rx Folic Acid 1 mg PO DAILY 04/08/14 02/06/19 History Aspirin EC [Ecotrin Low Dose] 81 mg PO DAILY 09/23/14 02/06/19 History Primidone [Mysoline] 50 mg PO BID 04/12/15 02/06/19 History Albuterol Nebulized [Ventolin 2.5 mg INHALATION RT-Q6H PRN 04/13/15 02/06/19 History Nebulized] Thiamine [Vitamin B-1] 100 mg PO DAILY 04/13/15 02/06/19 History ALPRAZolam [Xanax] 0.25 mg PO TID 09/07/15 02/06/19 History oxyCODONE HCL/ACETAMINOPHEN 1 tab PO Q8H 09/07/15 02/06/19 History [Oxycodone-Acetaminophen 5-325] ARIPiprazole [Abilify] 10 mg PO DAILY 03/11/17 02/06/19 History Gabapentin [Neurontin] 300 mg PO TID 03/11/17 02/06/19 History Baclofen [Lioresal] 10 mg PO BID 07/09/17 02/06/19 History Albuterol Inhaler [Ventolin Hfa 2 puff INHALATION RT-TID PRN 03/31/18 02/06/19 History Inhaler] Nitroglycerin Sl Tabs [Nitrostat] 0.4 mg SUBLINGUAL Q5M PRN #20 tab 04/03/18 02/06/19 Rx Pantoprazole [Protonix] 40 mg PO DAILY #30 tablet.dr 04/03/18 02/06/19 Rx Cholecalciferol (Vitamin D3) 2,000 unit PO DAILY 09/27/18 02/06/19 History [Vitamin D3] Ferrous Sulfate [Iron (65 MG 325 mg PO BID 09/27/18 02/06/19 History Elemental)] Fluticasone Nasal [place] [Flonase 1 spr EA NOSTRIL DAILY PRN 09/27/18 02/06/19 History Nasal [place]] Levothyroxine Sodium [Synthroid] 100 mcg PO DAILY 09/27/18 02/06/19 History Meclizine [Antivert] 25 mg PO QID 09/27/18 02/06/19 History Atorvastatin [Lipitor] 40 mg PO DAILY #30 tab 09/28/18 02/06/19 Rx Amiodarone [Cordarone] 100 mg PO DAILY 02/06/19 02/06/19 History Isosorbide Mononitrate ER [Imdur] 30 mg PO HS 02/06/19 02/06/19 History Allergies Allergy/AdvReac Type Severity Reaction Status Date / Time Penicillins Allergy Swelling Verified 02/06/19 20:59 Physical Exam Vitals: Vital Signs Temp Pulse Pulse Resp BP BP Pulse Ox 02/07/19 08:00 98.6 F 85 17 89/59 92 L 02/07/19 04:00 98.5 F 80 18 112/70 98 02/07/19 03:35 85 18 02/07/19 01:28 97.7 F 83 18 100/67 93 L 02/07/19 00:45 17 02/06/19 23:20 98.6 F 76 18 131/76 99 02/06/19 22:10 76 18 145/78 100 02/06/19 21:21 74 18 123/74 98 02/06/19 20:29 97.8 F 76 18 129/71 95 Intake and Output 02/06/19 02/07/19 02/07/19 22:59 06:59 14:59 Output Total 30 Balance -30 Output: Urine 30 Uretheral ([place]) 30 Other: Voiding Method Bedside Commode Incontinent Weight 58.967 kg Results CBC & Chem 7: 02/06/19 21:02 02/06/19 21:02 Labs: Abnormal Lab Results - Last 24 Hours (Table) 02/06/19 02/06/19 02/06/19 Range/Units 21:02 21:02 22:19 RBC 2.68 L (3.80-5.40) m/uL Hgb 8.7 L (11.4-16.0) gm/dL Hct 27.4 L (34.0-46.0) % MCV 102.2 H (80.0-100.0) fL Sodium 134 L (137-145) mmol/L Carbon Dioxide 31 H (22-30) mmol/L Glucose 102 H (74-99) mg/dL Total Protein 5.8 L (6.3-8.2) g/dL Albumin 3.0 L (3.5-5.0) g/dL Urine Appearance Cloudy H (Clear) Urine Protein Trace H (Negative) Urine Ketones Trace H (Negative) Ur Squamous Epith Cells 10 H (0-4) /hpf Urine Bacteria Rare H (None) /hpf Urine Mucus Rare H (None) /hpf Thrombosis Risk Factor Assmnt - Choose All That Apply Any of the Below Risk Factors Present?: Yes Each Factor Represents 1 point: Abnormal pulmonary function (COPD) Each Risk Factor Represents 2 Points: Age 61-74 years Other congenital or acquired thrombophilia - If yes, enter type in comment: No Thrombosis Risk Factor Assessment Total Risk Factor Score: 3 Thrombosis Risk Factor Assessment Level: Moderate Risk
--- NOTE | 2019-02-07 18:28 | P.DS ---
Providers Date of admission: 02/07/19 15:18 Expected date of discharge: 02/07/19 Attending physician: Adolfo Bay Consults: 02/06/19 23:16 Consult Physician Urgent Consulting Provider: [facility] Consult Reason/Comments: Chest pain Do you want consulting provider notified?: Yes 02/07/19 10:36 Consult Physician Routine Consulting Provider: Brit Taylor Consult Reason/Comments: abd pain, abd mass, gallstone Do you want consulting provider notified?: Yes Primary care physician: Alexei Vera MD Hospital Course: Chief Complaint: Abdominal pain Hospital course: This is a 63-year-old patient who follows with visiting physicians Dr. Vera. Patient has a rather extensive medical history. Normally uses a wheelchair or a walker to get about. Chronic stable medical conditions include, oral artery disease, COPD in an ex-smoker, chronic fibromyalgia, GERD, hyperlipidemia, essential hypertension, osteoarthritis, hypothyroid, chronic multiple sclerosis, peripheral neuropathy lower extremity, chronic urinary incontinence. Patient now presents with 3to4 days of increasing upper abdominal pain. slight nausea. Poor appetite. No fever no chills. Has been feeling very tired and rundown. Pain is pretty much in the upper abdomen. Does not radiate anywhere. Some associated nonspecific chest pain. Ultrasound of the abdomen showed a large mass. Computed tomography scan of the abdomen showed a arge partially cystic partially solid mass appears to rise from the great echo which was normal measuring 18 by then 0.7 x 1.2 cm. There is displacement of the stomach with luminal narrowing and ear obstruction. The mass appears to infiltrate into the adjacent duodenum. Patient seen with Dr. Lees. Because of the complexity of the mass it was decided to transfer patient to high-level of Center. I did discuss at length with the patient. She is agreeable for the same. Did speak to , at [facility]. Patient will be transferred there at night. Patient otherwise medically stable. Discussion and discharge planning more than 35 minutes Consultation: Dr. GRACE Malloy from cardiology Dr. Eliza Lees from general surgery Physical examination: VITAL SIGNS: 98.6, 76, 18, 129/71, 95% room air-upon presentation GENERAL: Average built, propped up in bed, comfortable. EYES: Pupils equal. Conjunctiva normal. HEENT: External appearance of nose and ears normal, oral cavity grossly normal. NECK: JVD not raised; masses not palpable. HEART: First and second heart sounds are normal; no edema. LUNGS: Respiratory rate increased, decreased breath sounds. ABDOMEN: Soft, upper abdominal tenderness, no guarding or rigidity, liver spleen not palpable, no masses palpable. LYMPHATICS: No lymph nodes palpable in the axilla and neck. PSYCH: Alert and oriented x3; mood and affect normal. NEUROLOGICAL: [Cranial nerves grossly intact; no facial asymmetry, decreased power in the lower extremity. Investigations: White count 8.1 hemoglobin 8.7. History 85 potassium 4 bun 10 creatinine 0.71 Troponin I 3 negative amylase 139 lipase 491 EKG tracing personally reviewed by me-normal sinus rhythm specific T wave changes Chest x-ray film personally reviewed by me-lung perea clear Abdominal ultrasound-possible cirrhosis, mildly thickened gallbladder wall, suspect gallstone, large complex mass temperature was centimeters in the mid abdomen Computed tomography scan abdomen-large partially cystic partially solid mass appears to rise from the great echo which was normal measuring 18 by then 0.7 x 1.2 cm. There is displacement of the stomach with luminal narrowing and ear obstruction. The mass appears to infiltrate into the adjacent duodenum. Assessment: -Upper abdominal paincomplicated abdominal mass, not require further workup -Anterior chest wall pain, possibly related to the abdominal pain, in a patient with known coronary artery disease -Solitary gallstone -Coronary artery disease -COPD in an ex-smoker -Chronic fibromyalgia -GERD -Hyperlipidemia -Essential hypertension -Primary osteoarthritis -Hypothyroid -Chronic multiple sclerosis -Peripheral neuropathy both the lower extremity -Chronic urinary incontinence -Chronic kidney dysfunction uses a walker/wheelchair Plan: Transferred to [facility], internal medicine service at [facility] for higher level of care, patient may need more, complicated surgery that is not available here Patient Condition at Discharge: Undetermined Plan - Discharge Summary Discharge Rx Participant: No New Discharge Prescriptions: No Action Clopidogrel [Plavix] 75 mg PO DAILY #0 Folic Acid 1 mg PO DAILY Aspirin EC [Ecotrin Low Dose] 81 mg PO DAILY Primidone [Mysoline] 50 mg PO BID Albuterol Nebulized [Ventolin Nebulized] 2.5 mg INHALATION RT-Q6H PRN PRN Reason: Shortness Of Breath Thiamine [Vitamin B-1] 100 mg PO DAILY oxyCODONE HCL/ACETAMINOPHEN [Oxycodone-Acetaminophen 5-325] 1 tab PO Q8H ALPRAZolam [Xanax] 0.25 mg PO TID Gabapentin [Neurontin] 300 mg PO TID ARIPiprazole [Abilify] 10 mg PO DAILY Baclofen [Lioresal] 10 mg PO BID Albuterol Inhaler [Ventolin Hfa Inhaler] 2 puff INHALATION RT-TID PRN PRN Reason: Shortness Of Breath Nitroglycerin Sl Tabs [Nitrostat] 0.4 mg SUBLINGUAL Q5M PRN #20 tab PRN Reason: Chest Pain Pantoprazole [Protonix] 40 mg PO DAILY #30 tablet. Meclizine [Antivert] 25 mg PO QID Fluticasone Nasal [place] [Flonase Nasal [place]] 1 spr EA NOSTRIL DAILY PRN PRN Reason: Allergy Symptoms Cholecalciferol (Vitamin D3) [Vitamin D3] 2,000 unit PO DAILY Ferrous Sulfate [Iron (65 MG Elemental)] 325 mg PO BID Levothyroxine Sodium [Synthroid] 100 mcg PO DAILY Atorvastatin [Lipitor] 40 mg PO DAILY #30 tab Amiodarone [Cordarone] 100 mg PO DAILY Isosorbide Mononitrate ER [Imdur] 30 mg PO HS Discharge Medication List Clopidogrel [Plavix] 75 mg PO DAILY #0 02/21/14 [Rx] Folic Acid 1 mg PO DAILY 04/08/14 [History] Aspirin EC [Ecotrin Low Dose] 81 mg PO DAILY 09/23/14 [History] Primidone [Mysoline] 50 mg PO BID 04/12/15 [History] Albuterol Nebulized [Ventolin Nebulized] 2.5 mg INHALATION RT-Q6H PRN 04/13/15 [History] Thiamine [Vitamin B-1] 100 mg PO DAILY 04/13/15 [History] ALPRAZolam [Xanax] 0.25 mg PO TID 09/07/15 [History] oxyCODONE HCL/ACETAMINOPHEN [Oxycodone-Acetaminophen 5-325] 1 tab PO Q8H 09/07/15 [History] ARIPiprazole [Abilify] 10 mg PO DAILY 03/11/17 [History] Gabapentin [Neurontin] 300 mg PO TID 03/11/17 [History] Baclofen [Lioresal] 10 mg PO BID 07/09/17 [History] Albuterol Inhaler [Ventolin Hfa Inhaler] 2 puff INHALATION RT-TID PRN 03/31/18 [History] Nitroglycerin Sl Tabs [Nitrostat] 0.4 mg SUBLINGUAL Q5M PRN #20 tab 04/03/18 [Rx] Pantoprazole [Protonix] 40 mg PO DAILY #30 tablet.dr 04/03/18 [Rx] Cholecalciferol (Vitamin D3) [Vitamin D3] 2,000 unit PO DAILY 09/27/18 [History] Ferrous Sulfate [Iron (65 MG Elemental)] 325 mg PO BID 09/27/18 [History] Fluticasone Nasal [place] [Flonase Nasal [place]] 1 spr EA NOSTRIL DAILY PRN 09/27/18 [History] Levothyroxine Sodium [Synthroid] 100 mcg PO DAILY 09/27/18 [History] Meclizine [Antivert] 25 mg PO QID 09/27/18 [History] Atorvastatin [Lipitor] 40 mg PO DAILY #30 tab 09/28/18 [Rx] Amiodarone [Cordarone] 100 mg PO DAILY 02/06/19 [History] Isosorbide Mononitrate ER [Imdur] 30 mg PO HS 02/06/19 [History] Follow up Appointment(s)/Referral(s): Alexei Vera MD [Primary Care Provider] - 1-2 days
[2019-02-07 19:11] VITALS: BP 96/78; PULSE 96; RESP 16; TEMP 98.3
--- NOTE | 2019-02-07 20:57 | P.PN ---
Progress Note - Text Progress Note Date: 02/07/19 Patient seen and reevaluated. She is being prepared for transfer. Patient has a large tumor with moderate displacement of the intestines and organs of the stomach highly suspicious of gastrointestinal stromal tumor. May need interventional radiology embolization including multidisciplinary team with surgery and ciro adjuvant chemotherapy. Patient to be transferred to tertiary care center.
[2019-02-07] MEDS ORDERED: FERROUS SULFATE 325 MG TAB PO SCH (21:00)
[2019-02-07] MEDS ORDERED: ISOSORBIDE MONONITRATE ER 30 MG TAB.ER.24H PO SCH (21:00)
[2019-02-07] MEDS ORDERED: LOSARTAN 25 MG TAB PO SCH ×2 (21:00)
[2019-02-08] MEDS ORDERED: THIAMINE 100 MG TAB PO SCH (09:00)
== END 2019-02-07 22:07 | disposition short-term general hospital (02) | DRG 392 ==
LOC: EC 20:27 → 1SOBS 23:25 → OBSVTOIN 02-07 15:18
PROVIDERS: ADMIT Hospitalist; ATTEND Hospitalist
DX: R19.09 Other intra-abdominal and pelvic swelling, mass and lump (principal); J96.10 Chronic respiratory failure, unspecified whether with hypoxia or hypercapnia; K51.90 Ulcerative colitis, unspecified, without complications; D64.9 Anemia, unspecified; E03.9 Hypothyroidism, unspecified; E78.5 Hyperlipidemia, unspecified; E86.0 Dehydration; F31.9 Bipolar disorder, unspecified; F41.0 Panic disorder [episodic paroxysmal anxiety]; G35 Multiple sclerosis; G62.9 Polyneuropathy, unspecified; I07.1 Rheumatic tricuspid insufficiency; I11.0 Hypertensive heart disease with heart failure; I25.10 Atherosclerotic heart disease of native coronary artery without angina pectoris; I25.2 Old myocardial infarction; I50.9 Heart failure, unspecified; I73.9 Peripheral vascular disease, unspecified; J44.9 Chronic obstructive pulmonary disease, unspecified; K21.9 Gastro-esophageal reflux disease without esophagitis; K31.9 Disease of stomach and duodenum, unspecified; K80.20 Calculus of gallbladder without cholecystitis without obstruction; M19.91 Primary osteoarthritis, unspecified site; M79.7 Fibromyalgia; N28.9 Disorder of kidney and ureter, unspecified; R32 Unspecified urinary incontinence; Z79.02 Long term (current) use of antithrombotics/antiplatelets; Z79.82 Long term (current) use of aspirin; Z79.890 Hormone replacement therapy; Z79.899 Other long term (current) drug therapy; Z82.49 Family history of ischemic heart disease and other diseases of the circulatory system; Z86.74 Personal history of sudden cardiac arrest; Z87.11 Personal history of peptic ulcer disease; Z87.440 Personal history of urinary (tract) infections; Z87.891 Personal history of nicotine dependence; Z99.81 Dependence on supplemental oxygen
CPT/HCPCS: 36415; 71046; 74177; 76700; 80053; 80061; 81001; 82150; 83605; 83690; 83735; 84484; 85025; 85610; 85730; 93005; 96361; 96374; 96375; 96376; 99285

== ENCOUNTER 2019-03-15 17:56 | Inpatient (IN) | payer OTHER ==
[2019-03-15] MEDS ORDERED: IPRATROPIUM-ALBUTEROL 3 ML NEB INHALATION STA (18:16)
[2019-03-15 18:38] LABS: Basophils % (A) 0 %; Eosinophils # (A) 0.1 k/uL (0-0.7); Eosinophils % (A) 1 %; HCT 25.3 % (34.0-46.0); HGB 7.9 gm/dL (11.4-16.0); Hypochromasia Moderate; Lymphocytes % (A) 7 %; MCH 31.3 pg (25.0-35.0); MCHC 31.3 g/dL (31.0-37.0); Macrocytosis Slight; Mean Platelet Volume 8.3; Monocytes # (A) 0.9 k/uL (0-1.0); Monocytes % (A) 6 %; Neutrophils # (A) 11.9 k/uL (1.3-7.7); Neutrophils % (A) 84 %; Platelet Count 277 k/uL (150-450); RBC 2.53 m/uL (3.80-5.40); WBC 14.1 k/uL (3.8-10.6)
--- NOTE | 2019-03-15 18:41 | ED ---
SOB HPI - General Chief Complaint: Shortness of Breath Stated Complaint: Difficultly breathing Time Seen by Provider: 03/15/19 18:16 Source: patient, RN notes reviewed, old records reviewed Mode of arrival: ambulatory Limitations: no limitations - History of Present Illness Initial Comments: This is a 63-year-old female to the emergency for evaluation regards to shortness of breath, cough chest and back. Weakness and not feeling well. Symptoms are pretty acute on chronic. Patient is also recent fevers and sweats is awake. Multiple medical core morbidities from COPD or heart disease. Patient has recent hospital admission only about 4 months ago for similar type complaints. Patient currently denying any chest pain has diffuse pain which she believes is related to her while. MD Complaint: shortness of breath, cough -: week(s) Severity: moderate Severity scale (1-10): 4 Quality: dull, aching Consistency: constant Improves With: nothing Worsens With: exertion, movement, coughing Known History Of: COPD, congestive heart failure, recurrent pneumonia Context: recent URI, anxiety Associated Symptoms: cough, sputum production, palpitations Treatments Prior to Arrival: none - Related Data Home Medications Medication Instructions Recorded Confirmed Folic Acid 1 mg PO DAILY 04/08/14 02/06/19 Aspirin EC [Ecotrin Low Dose] 81 mg PO DAILY 09/23/14 02/06/19 Primidone [Mysoline] 50 mg PO BID 04/12/15 02/06/19 Albuterol Nebulized [Ventolin 2.5 mg INHALATION RT-Q6H PRN 04/13/15 02/06/19 Nebulized] Thiamine [Vitamin B-1] 100 mg PO DAILY 04/13/15 02/06/19 ALPRAZolam [Xanax] 0.25 mg PO TID 09/07/15 02/06/19 oxyCODONE HCL/ACETAMINOPHEN 1 tab PO Q8H 09/07/15 02/06/19 [Oxycodone-Acetaminophen 5-325] ARIPiprazole [Abilify] 10 mg PO DAILY 03/11/17 02/06/19 Gabapentin [Neurontin] 300 mg PO TID 03/11/17 02/06/19 Baclofen [Lioresal] 10 mg PO BID 07/09/17 02/06/19 Albuterol Inhaler [Ventolin Hfa 2 puff INHALATION RT-TID PRN 03/31/18 02/06/19 Inhaler] Cholecalciferol (Vitamin D3) 2,000 unit PO DAILY 09/27/18 02/06/19 [Vitamin D3] Ferrous Sulfate [Iron (65 MG 325 mg PO BID 09/27/18 02/06/19 Elemental)] Fluticasone Nasal [place] [Flonase 1 spr EA NOSTRIL DAILY PRN 09/27/18 02/06/19 Nasal [place]] Levothyroxine Sodium [Synthroid] 100 mcg PO DAILY 09/27/18 02/06/19 Meclizine [Antivert] 25 mg PO QID 09/27/18 02/06/19 Amiodarone [Cordarone] 100 mg PO DAILY 02/06/19 02/06/19 Isosorbide Mononitrate ER [Imdur] 30 mg PO HS 02/06/19 02/06/19 Previous Rx's Medication Instructions Recorded Clopidogrel [Plavix] 75 mg PO DAILY #0 02/21/14 Nitroglycerin Sl Tabs [Nitrostat] 0.4 mg SUBLINGUAL Q5M PRN #20 tab 04/03/18 Pantoprazole [Protonix] 40 mg PO DAILY #30 tablet. 04/03/18 Atorvastatin [Lipitor] 40 mg PO DAILY #30 tab 09/28/18 Allergies Allergy/AdvReac Type Severity Reaction Status Date / Time Penicillins Allergy Swelling Verified 03/15/19 18:14 Review of Systems ROS Statement: Those systems with pertinent positive or pertinent negative responses have been documented in the HPI. ROS Other: All systems not noted in ROS Statement are negative. Past Medical History Past Medical History: Coronary Artery Disease (CAD), Chest Pain / Angina, Heart Failure, COPD, Eye Disorder, Fibromyalgia, GERD/Reflux, Hyperlipidemia, Hypertension, Myocardial Infarction (SC), Musculoskeletal Disorder, Neurologic Disorder, Osteoarthritis (OA), Pneumonia, Respiratory Disorder, Skin Disorder, Thyroid Disorder, Vascular Disorder Additional Past Medical History / Comment(s): 11/2012 SC with cardiac arrest/vtach, chronic respiratory failure-uses home O2 prn 2-3L/NC, tracheobronchitis, tricuspid regurgitation, multiple sclerosis, neuropathy bilateral legs/feet, chronic back pain, DDD, migraines, bilateral carpal tunnel syndrome, past L/R rib fractures, past L hip fracture with surgery, PUD with ulcer rupture with surgery, peritonitis, pancreatitis, IBS/ ulcerative colitis, chronic anemia, UTIs, urinary incontinence, endometriosis, hypothyroid, R catar act and L eye cataract forming again, PVD, L leg cellulitis, Last Myocardial Infarction Date:: 2012 History of Any Multi-Drug Resistant Organisms: ESBL Date of last positivie culture/infection: 02/18/2014 MDRO Source:: Blood and Urine E. coli ESBL Past Surgical History: AICD, Appendectomy, Heart Catheterization, Heart Catheterization With Stent, Orthopedic Surgery, Pacemaker Additional Past Surgical History / Comment(s): Cardioversion, Laparotomy for ruptured gastric ulcer, R foot fracture with surgery, L hip fracture with surgery-has plate and screw, EGD, colonoscopies with bening polypectomy. Past Anesthesia/Blood Transfusion Reactions: No Reported Reaction Additional Past Anesthesia/Blood Transfusion Reaction / Comment(s): Pt has received blood in past without reaction. Date of Last Stent Placement:: 11/2012 Type of Cardiac Device: Permanent Pacemaker, AICD Device Placement Date:: 2012 Past Psychological History: Anxiety, Bipolar, Depression, Panic Disorder Smoking Status: Former smoker Past Alcohol Use History: None Reported Past Drug Use History: None Reported - Past Family History Mother Family Medical History: Musculoskeletal Disorder Additional Family Medical History / Comment(s): MS Sister(s) Family Medical History: Myocardial Infarction (SC) Additional Family Medical History / Comment(s): SISTER ALSO HAS MS Brother(s) Family Medical History: Musculoskeletal Disorder, Neurologic Disorder Additional Family Medical History / Comment(s): MS Father Additional Family Medical History / Comment(s): ETOH abuse, back surgery General Exam Limitations: no limitations General appearance: alert, in no apparent distress Head exam: Present: atraumatic, normocephalic, normal inspection Eye exam: Present: normal appearance, PERRL, EOMI. Absent: scleral icterus, co njunctival injection, periorbital swelling ENT exam: Present: normal exam, mucous membranes moist Neck exam: Present: normal inspection. Absent: tenderness, meningismus, lymphadenopathy Respiratory exam: Present: wheezes, rhonchi, accessory muscle use, decreased breath sounds, prolonged expiratory. Absent: respiratory distress, rales, stridor Cardiovascular Exam: Present: regular rate, normal rhythm, normal heart sounds. Absent: systolic murmur, diastolic murmur, rubs, gallop, clicks GI/Abdominal exam: Present: soft, normal bowel sounds. Absent: distended, tenderness, guarding, rebound, rigid Extremities exam: Present: normal inspection, full ROM, normal capillary refill. Absent: tenderness, pedal edema, joint swelling, calf tenderness Back exam: Present: normal inspection Neurological exam: Present: alert, oriented X3, CN II-XII intact Psychiatric exam: Present: normal affect, normal mood Skin exam: Present: warm, dry, intact, normal color. Absent: rash Course Vital Signs 03/15/19 03/15/19 03/15/19 18:09 18:10 18:13 Pulse Rate 92 Respiratory 24 23 Rate Blood Pressure 103/61 O2 Sat by Pulse 96 Oximetry 03/15/19 03/15/19 03/15/19 18:51 19:04 19:46 Pulse Rate 90 89 90 Respiratory 20 Rate Blood Pressure 92/58 O2 Sat by Pulse 96 Oximetry - Reevaluation(s) Reevaluation #1: 03/15/19 20:08 Medical record is reviewed Reevaluation #2: 03/15/19 20:08 Patient having improved pain control currently - Consultations Consultation #1: spoke Dr. Ermelinda Phelps who is agreeable for admission Medical Decision Making - Medical Decision Making 6 history female [place] for evaluation of shortness of breath weakness bifemoral persistent cough. Patient has significant pneumonia which is new will admit for treatment of pneumonia, pain control - Lab Data Result diagrams: 03/15/19 18:25 03/15/19 18:25 Lab Results 03/15/19 03/15/19 03/15/19 Range/Units 18:25 18:25 18:25 WBC 14.1 H (3.8-10.6) k/uL RBC 2.53 L (3.80-5.40) m/uL Hgb 7.9 L (11.4-16.0) gm/dL Hct 25.3 L (34.0-46.0) % MCV 100.0 (80.0-100.0) fL MCH 31.3 (25.0-35.0) pg MCHC 31.3 (31.0-37.0) g/dL RDW 14.0 (11.5-15.5) % Plt Count 277 (150-450) k/uL Neutrophils % 84 % Lymphocytes % 7 % Monocytes % 6 % Eosinophils % 1 % Basophils % 0 % Neutrophils # 11.9 H (1.3-7.7) k/uL Lymphocytes # 1.0 (1.0-4.8) k/uL Monocytes # 0.9 (0-1.0) k/uL Eosinophils # 0.1 (0-0.7) k/uL Basophils # 0.0 (0-0.2) k/uL Hypochromasia Moderate Macrocytosis Slight PT 15.1 H (9.0-12.0) sec INR 1.5 H (<1.2) APTT 26.5 (22.0-30.0) sec Sodium 133 L (137-145) mmol/L Potassium 3.5 (3.5-5.1) mmol/L Chloride 96 L (98-107) mmol/L Carbon Dioxide 32 H (22-30) mmol/L Anion Gap 5 mmol/L BUN 12 (7-17) mg/dL Creatinine 0.55 (0.52-1.04) mg/dL Est GFR (CKD-EPI)AfAm >90 (>60 ml/min/1.73 sqM) Est GFR (CKD-EPI)NonAf >90 (>60 ml/min/1.73 sqM) Glucose 96 (74-99) mg/dL Calcium 8.3 L (8.4-10.2) mg/dL Magnesium 1.6 (1.6-2.3) mg/dL Total Bilirubin 0.6 (0.2-1.3) mg/dL AST 25 (14-36) U/L ALT 20 (9-52) U/L Alkaline Phosphatase 81 (38-126) U/L Creatine Kinase 58 (30-135) U/L Troponin I (0.000-0.034) ng/mL NT-Pro-B Natriuret Pep pg/mL Total Protein 5.1 L (6.3-8.2) g/dL Albumin 2.5 L (3.5-5.0) g/dL 03/15/19 03/15/19 Range/Units 18:25 18:25 WBC (3.8-10.6) k/uL RBC (3.80-5.40) m/uL Hgb (11.4-16.0) gm/dL Hct (34.0-46.0) % MCV (80.0-100.0) fL MCH (25.0-35.0) pg MCHC (31.0-37.0) g/dL RDW (11.5-15.5) % Plt Count (150-450) k/uL Neutrophils % % Lymphocytes % % Monocytes % % Eosinophils % % Basophils % % Neutrophils # (1.3-7.7) k/uL Lymphocytes # (1.0-4.8) k/uL Monocytes # (0-1.0) k/uL Eosinophils # (0-0.7) k/uL Basophils # (0-0.2) k/uL Hypochromasia Macrocytosis PT (9.0-12.0) sec INR (<1.2) APTT (22.0-30.0) sec Sodium (137-145) mmol/L Potassium (3.5-5.1) mmol/L Chloride (98-107) mmol/L Carbon Dioxide (22-30) mmol/L Anion Gap mmol/L BUN (7-17) mg/dL Creatinine (0.52-1.04) mg/dL Est GFR (CKD-EPI)AfAm (>60 ml/min/1.73 sqM) Est GFR (CKD-EPI)NonAf (>60 ml/min/1.73 sqM) Glucose (74-99) mg/dL Calcium (8.4-10.2) mg/dL Magnesium (1.6-2.3) mg/dL Total Bilirubin (0.2-1.3) mg/dL AST (14-36) U/L ALT (9-52) U/L Alkaline Phosphatase (38-126) U/L Creatine Kinase (30-135) U/L Troponin I <0.012 (0.000-0.034) ng/mL NT-Pro-B Natriuret Pep 2110 pg/mL Total Protein (6.3-8.2) g/dL Albumin (3.5-5.0) g/dL - EKG Data -: EKG Interpreted by Me (EKG shows sinus arrhythmia rate of 94, KS 140, QRS 86, QTC 400) - Radiology Data Radiology results: report reviewed (Chest x-ray is positive for pneumonia), image reviewed Disposition Clinical Impression: Acute weakness, Pneumonia, Weakness, Community acquired pneumonia Disposition: ADMITTED IP TO THIS HOSP Condition: Fair Is patient prescribed a controlled substance at d/c from ED?: No Referrals: Alexei Vera MD [Primary Care Provider] - 1-2 days
[2019-03-15 18:50] LABS: INR 1.5 (<1.2); Partial Thromboplastin Time 26.5 sec (22.0-30.0); Prothrombin Time 15.1 sec (9.0-12.0)
[2019-03-15 18:51] LABS: ALT 20 U/L (9-52); AST 25 U/L (14-36); African American GFR (CKD) >90 (>60 ml/min/1.73 sqM); Albumin 2.5 g/dL (3.5-5.0); Alkaline Phosphatase 81 U/L (38-126); Anion Gap 5 mmol/L; Blood Urea Nitrogen 12 mg/dL (7-17); Calcium 8.3 mg/dL (8.4-10.2); Carbon Dioxide 32 mmol/L (22-30); Chloride 96 mmol/L (98-107); Creatine Kinase 58 U/L (30-135); Glucose 96 mg/dL (74-99); Magnesium 1.6 mg/dL (1.6-2.3); Non-African American GFR(CKD) >90 (>60 ml/min/1.73 sqM); Potassium 3.5 mmol/L (3.5-5.1); Sodium 133 mmol/L (137-145); Total Bilirubin 0.6 mg/dL (0.2-1.3); Total Protein 5.1 g/dL (6.3-8.2)
--- NOTE | 2019-03-15 19:48 | XR ---
EXAMINATION TYPE: XR chest 2V DATE OF EXAM: 03/15/2019 COMPARISON: 02/06/2019 HISTORY: Short of breath TECHNIQUE: Frontal and lateral views of the chest are obtained. FINDINGS: There is some blunting of the right costophrenic angle. Exam is limited due to some rotati on. There is no heart failure. There is coarsening of the lung markings. There is left axillary pacem jared. There is T7 25% anterior wedging. IMPRESSION: There is a new pleural reaction and mild infiltrate right lung base compared to old exam . No obvious heart failure. Old T7 compression fracture unchanged.
[2019-03-15] MEDS ORDERED: HYDROmorphone 0.5 MG/0.5 ML SYRINGE IVP STA (19:53)
[2019-03-15] MEDS ORDERED: HYDROmorphone 1 MG/ML 1 ML SYRINGE IVP PRN (19:53)
[2019-03-15] MEDS ORDERED: ALBUTEROL NEBULIZED 2.5 MG/3 ML INHALATION PRN (20:05)
[2019-03-15] MEDS ORDERED: PNEUMONIA PROTOCOL UTILIZED 1 EACH MISC PO PRN (20:05)
[2019-03-15] MEDS ORDERED: LEVOFLOXACIN 750MG-D5W PMX 750 MG in DEXTROSE/WATER 1 150ML.BAG IVPB STA (20:05)
[2019-03-15] MEDS ORDERED: SODIUM CHLORIDE 0.9% 500 ML 500 ML IV ONE ×2 (23:02→23:53)
--- NOTE | 2019-03-16 00:05 | P.HPIM ---
History of Present Illness H&P Date: 03/15/19 Chief Complaint: generalized weakness, coughing 63-year-old female with extensive past medical history includes recent diagnosis of abdominal mass invading the duodenum further details unavailable at this time as workup was done at [facility]. Patient also has extensive cardiac history with VT arrest in the past status post AICD, coronary artery disease status post stenting, COPD on home oxygen Patient was discharged from the hospital about a month ago where she presented with abdominal pain and was found to have abdominal mass over the greater curvature of the stomach measuring 18 x 10 x 7, with possible infiltration of the adjacent duodenum. She was transferred [facility] for further workup as malignancy was suspected. Patient unable to provide any further information or what type of workup was performed at [facility] at this time She is here today due to generalized weakness and coughing, she reports that she hasn't been feeling well for a while now she is very weak and tired and lethargic during the interview however easily arousable. She reports some coughing productive of small amounts roundish sputum that has been going on for 2-3 days now which has been associated with chills and increased wheezing. Denies any fevers denies any chest pain but does report some epigastric abdominal discomfort. She is not sure if she is having any GI bleeding but did report that she is on iron pills and her stool is always dark. Patient doesn't do much at home she is either bedbound or on a chair she is on home oxygen 2 L. She feels very depressed about her condition and wants to feel more energetic she reports that she's been feeling like this for months now. Patient denies any nausea vomiting denies any diarrhea or GI bleeding denies any changes in her urinary habits. From a quick chart review seems like her hemoglobin was around 13.7 in September when she came in for chest pain at that time echocardiogram was done showed left ventricular ejection fraction of 40-45% she had a stress test done before that which was negative and cardiology doesn't seem to have offered her any further testing during her hospitalization in September 2018. Her hemoglobin has dropped in January to about 9, that's when she was found to h ave the stomach mass and was transferred [facility] it is not clear what kind of workup or conclusion or diagnosis was given to her at [facility] patient is not aware and unable to provide this information at this time. In the ED she was found to have a hemoglobin of 7.9 this is definitely worse than before, with slightly elevated white blood count at 14.1 thought to be component of her pneumonia. EKG showed normal sinus rhythm fluid test was negative chest x-ray showed some infiltrates. Review of Systems Pertinent positives as noted in HPI. All other systems were reviewed and are negative Past Medical History Past Medical History: Coronary Artery Disease (CAD), Chest Pain / Angina, Heart Failure, COPD, Eye Disorder, Fibromyalgia, GERD/Reflux, Hyperlipidemia, Hypertension, Myocardial Infarction (VT), Musculoskeletal Disorder, Neurologic Disorder, Osteoarthritis (OA), Pneumonia, Respiratory Disorder, Skin Disorder, Thyroid Disorder, Vascular Disorder Additional Past Medical History / Comment(s): 11/2012 VT with cardiac arrest/vtach, chronic respiratory failure-uses home O2 prn 2-3L/NC, tracheobronchitis, tricuspid regurgitation, multiple sclerosis, neuropathy ranjeet ateral legs/feet, chronic back pain, DDD, migraines, bilateral carpal tunnel syndrome, past L/R rib fractures, past L hip fracture with surgery, PUD with ulcer rupture with surgery, peritonitis, pancreatitis, IBS/ ulcerative colitis, chronic anemia, UTIs, urinary incontinence, endometriosis, hypothyroid, R cataract and L eye cataract forming again, PVD, L leg cellulitis, Last Myocardial Infarction Date:: 2012 History of Any Multi-Drug Resistant Organisms: ESBL Date of last positivie culture/infection: 02/18/2014 MDRO Source:: Blood and Urine E. coli ESBL Past Surgical History: AICD, Appendectomy, Heart Catheterization, Heart Catheterization With Stent, Orthopedic Surgery, Pacemaker Additional Past Surgical History / Comment(s): Cardioversion, Laparotomy for ruptured gastric ulcer, R foot fracture with surgery, L hip fracture with surgery-has plate and screw, EGD, colonoscopies with bening polypectomy. Past Anesthesia/Blood Transfusion Reactions: No Reported Reaction Additional Past Anesthesia/Blood Transfusion Reaction / Comment(s): Pt has received blood in past without reaction. Date of Last Stent Placement:: 11/2012 Type of Cardiac Device: Permanent Pacemaker, AICD Device Placement Date:: 2012 Past Psychological History: Anxiety, Bipolar, Depression, Panic Disorder Additional Psychological History / Comment(s): pt. wouldn't stated she does'nt know how she ended up with a legal guardian shweta cooper.pt stated she lives at [facility] -has help come in to do cleaning,cooking,bathing. Smoking Status: Former smoker Past Alcohol Use History: None Reported Additional Past Alcohol Use History / Comment(s): hx. alcohol abuse-last drank 12 yrs. ago patient is a smoker one pack per day for 40 years and quit 15 days ago. She has history of marijuana use in the past but none at this time. She also has history of alcohol abuse but quit 12 years ago. She is currently bladimir ing on her own and has home care and assistance and plan to return there at the time of discharge. Past Drug Use History: None Reported - Past Family History Mother Family Medical History: Musculoskeletal Disorder Additional Family Medical History / Comment(s): MS Sister(s) Family Medical History: Myocardial Infarction (VT) Additional Family Medical History / Comment(s): SISTER ALSO HAS MS Brother(s) Family Medical History: Musculoskeletal Disorder, Neurologic Disorder Additional Family Medical History / Comment(s): MS Father Additional Family Medical History / Comment(s): ETOH abuse, back surgery Medications and Allergies Home Medications Medication Instructions Recorded Confirmed Type Clopidogrel [Plavix] 75 mg PO DAILY #0 02/21/14 02/06/19 Rx Folic Acid 1 mg PO DAILY 04/08/14 02/06/19 History Aspirin EC [Ecotrin Low Dose] 81 mg PO DAILY 09/23/14 02/06/19 History Primidone [Mysoline] 50 mg PO BID 04/12/15 02/06/19 History Albuterol Nebulized [Ventolin 2.5 mg INHALATION RT-Q6H PRN 04/13/15 02/06/19 History Nebulized] Thiamine [Vitamin B-1] 100 mg PO DAILY 04/13/15 02/06/19 History ALPRAZolam [Xanax] 0.25 mg PO TID 09/07/15 02/06/19 History oxyCODONE HCL/ACETAMINOPHEN 1 tab PO Q8H 09/07/15 02/06/19 History [Oxycodone-Acetaminophen 5-325] ARIPiprazole [Abilify] 10 mg PO DAILY 03/11/17 02/06/19 History Gabapentin [Neurontin] 300 mg PO TID 03/11/17 02/06/19 History Baclofen [Lioresal] 10 mg PO BID 07/09/17 02/06/19 History Albuterol Inhaler [Ventolin Hfa 2 puff INHALATION RT-TID PRN 03/31/18 02/06/19 History Inhaler] Nitroglycerin Sl Tabs [Nitrostat] 0.4 mg SUBLINGUAL Q5M PRN #20 tab 04/03/18 02/06/19 Rx Pantoprazole [Protonix] 40 mg PO DAILY #30 tablet.dr 04/03/18 02/06/19 Rx Cholecalciferol (Vitamin D3) 2,000 unit PO DAILY 09/27/18 02/06/19 History [Vitamin D3] Ferrous Sulfate [Iron (65 MG 325 mg PO BID 09/27/18 02/06/19 History Elemental)] Fluticasone Nasal Silva [Flonase 1 spr EA NOSTRIL DAILY PRN 09/27/18 02/06/19 History Nasal Silva] Levothyroxine Sodium [Synthroid] 100 mcg PO DAILY 09/27/18 02/06/19 History Meclizine [Antivert] 25 mg PO QID 09/27/18 02/06/19 History Atorvastatin [Lipitor] 40 mg PO DAILY #30 tab 09/28/18 02/06/19 Rx Amiodarone [Cordarone] 100 mg PO DAILY 02/06/19 02/06/19 History Isosorbide Mononitrate ER [Imdur] 30 mg PO HS 02/06/19 02/06/19 History Allergies Allergy/AdvReac Type Severity Reaction Status Date / Time Penicillins Allergy Swelling Verified 03/15/19 18:14 Physical Exam Vitals: Vital Signs Temp Pulse Pulse Resp BP BP Pulse Ox 03/15/19 23:00 80 80/50 03/15/19 22:08 98.6 F 88 22 90/59 98 03/15/19 19:46 90 20 92/58 96 03/15/19 19:04 89 03/15/19 18:51 90 03/15/19 18:13 103/61 03/15/19 18:10 23 03/15/19 18:09 92 24 96 Intake and Output 03/15/19 03/15/19 03/16/19 14:59 22:59 06:59 Other: Weight 61.235 kg Constitutional: No acute distress, patient is lethargic however easily arousable Eyes: Anicteric sclerae, clinical pallor, moist conjunctiva, no lid-lag Pupils equal round reactive to light ENMT: NC/AT Oropharynx clear, no erythema, or exudates Neck: Supple, FROM, no masses, or JVD No carotid bruits No thyromegaly Lungs: Prolonged expiratory phase with end expiratory wheezes, rhonchi at right lung base Clear to percussion Normal respiratory effort, no accessory muscle use Cardiovascular: Heart regular in rate and rhythm, No murmurs, gallops, or rubs No peripheral edema Abdominal: Soft Nontender, no guarding, rebound or rigidity Abdomen moving with respiration Normoactive bowel sounds No hepatomegaly, No splenomegaly No palpable mass No abdominal wall hernia noted Skin: Chronic skin changes over bilateral legs Otherwise Normal temperature, tone, texture, turgor No induration No subcutaneous nodules No rash, lesions No ulcers Extremities: No digital cyanosis No clubbing Pedal pulses intact and symmetrical Radial pulses intact and symmetrical No calf tenderness Psychiatric: Patient lethargic however easily arousable oriented to place and person and situation Appropriate affect fair judgment Neuro Muscles Strength 3-4/5 in all 4 extremities patient showing very poor effort Sensation to light touch grossly present throughout Cranial nerves II-XII grossly intact No focal sensory deficits Lymphatics: no palpable cervical or supraclavicular , or inguinal lymph nodes Results CBC & Chem 7: 03/15/19 18:25 03/15/19 18:25 Labs: Abnormal Lab Results - Last 24 Hours (Table) 03/15/19 03/15/19 03/15/19 Range/Units 18:25 18:25 18:25 WBC 14.1 H (3.8-10.6) k/uL RBC 2.53 L (3.80-5.40) m/uL Hgb 7.9 L (11.4-16.0) gm/dL Hct 25.3 L (34.0-46.0) % Neutrophils # 11.9 H (1.3-7.7) k/uL PT 15.1 H (9.0-12.0) sec INR 1.5 H (<1.2) Sodium 133 L (137-145) mmol/L Chloride 96 L (98-107) mmol/L Carbon Dioxide 32 H (22-30) mmol/L Calcium 8.3 L (8.4-10.2) mg/dL Total Protein 5.1 L (6.3-8.2) g/dL Albumin 2.5 L (3.5-5.0) g/dL Thrombosis Risk Factor Assmnt - Choose All That Apply Each Risk Factor Represents 2 Points: Age 61-74 years Thrombosis Risk Factor Assessment Total Risk Factor Score: 2 Thrombosis Risk Factor Assessment Level: Low Risk Assessment and Plan Assessment: 63-year-old female with extensive past medical history includes recent diagnosis of abdominal mass invading the duodenum further details unavailable at this time as workup was done at [facility]. Patient also has extensive cardiac history with VT arrest in the past status post AICD, coronary artery disease status post stenting, COPD on home oxygen presented with generalized weakness and coughing, found to have worsening anemia and infiltrates on her chest x-ray flu test was negative admitted for treatment of possible pneumonia and treatment of symptomatic anemia Plan: Healthcare associated pneumonia COPD exacerbation secondary to above Chronic hypoxic respiratory failure on 2 L of oxygen Follow-up cultures Chest x-ray showed infiltrates with patient complaint of productive cough and shortness of breath with increased wheezing Continue with levofloxacin Breathing treatments Prednisone by mouth Supportive care Flu test negative Symptomatic anemia with recent diagnosis of stomach complex mass possibly malignant Computed tomography scan of the abdomen from January 2019 showed stomach mass at the greater curvature [address] with infiltrates into the adjacent duodenum she was transferred to [facility] for further workup records are not available at this time from [facility] Monitor hemoglobin closely 1 unit blood transfusion for symptomatic anemia Hypotension with history of hypertension Gentle boluses of normal saline Close monitoring of vital signs Hold blood pressure medications Chronic conditions History of CAD with history of VT arrest Status post AICD Continue with amiodarone illuminator Hypothyroidism Resume levothyroxine History of MS History of GERD History of CAD continue with aspirin hold Plavix for now until GI bleeding ruled out Most recent RCA stent was in 2016 per records Preformed a thorough record review from recent hospitalization where she was found to have stomach masses mentioned above Escalate level of care patient should be transferred to stepdown unit in 3 S. CODE STATUS no code DVT prophylaxis: Mechanical until GI bleeding is ruled out Discussed with: Patient, ER, RN Anticipated length of stay more than [address]: Pending clinical course A total of 75 minutes was spent on the care of this complex patient more than 50% of the time was spent in counseling and care coordination.
[2019-03-16] MEDS: predniSONE 20 MG TAB PO SCH ×2 (00:38→09:03)
[2019-03-16] MEDS: SODIUM CHLORIDE 0.9% 1,000 ML IV SCH ×2 (00:38→17:16)
[2019-03-16] MEDS: SYMBICORT 160-4.5 MCG INHALER INHALATION SCH ×3 (03:17→21:02)
[2019-03-16] MEDS: LEVOTHYROXINE 100 MCG TAB PO SCH (06:07)
[2019-03-16 07:03] LABS: Anisocytosis Slight; Basophils % (A) 0 %; Eosinophils % (A) 0 %; HCT 27.3 % (34.0-46.0); HGB 8.7 gm/dL (11.4-16.0); Hypochromasia Moderate; Lymphocytes # (A) 0.5 k/uL (1.0-4.8); Lymphocytes % (A) 5 %; MCH 30.8 pg (25.0-35.0); MCHC 31.9 g/dL (31.0-37.0); MCV 96.5 fL (80.0-100.0); Mean Platelet Volume 6.9; Monocytes # (A) 0.3 k/uL (0-1.0); Monocytes % (A) 3 %; Neutrophils # (A) 9.5 k/uL (1.3-7.7); Neutrophils % (A) 91 %; Platelet Count 277 k/uL (150-450); Poikilocytosis Slight; RBC 2.82 m/uL (3.80-5.40); RDW 16.3 % (11.5-15.5); WBC 10.5 k/uL (3.8-10.6)
[2019-03-16 07:22] LABS: ALT 18 U/L (9-52); AST 22 U/L (14-36); African American GFR (CKD) >90 (>60 ml/min/1.73 sqM); Albumin 2.2 g/dL (3.5-5.0); Alkaline Phosphatase 70 U/L (38-126); Anion Gap 5 mmol/L; Blood Urea Nitrogen 9 mg/dL (7-17); Calcium 7.5 mg/dL (8.4-10.2); Carbon Dioxide 31 mmol/L (22-30); Chloride 99 mmol/L (98-107); Glucose 120 mg/dL (74-99); Non-African American GFR(CKD) >90 (>60 ml/min/1.73 sqM); Potassium 3.5 mmol/L (3.5-5.1); Sodium 135 mmol/L (137-145); Total Bilirubin 1.4 mg/dL (0.2-1.3); Total Protein 4.5 g/dL (6.3-8.2)
[2019-03-16] MEDS ORDERED: ENOXAPARIN 40 MG/0.4 ML SYRINGE SQ SCH (09:00)
[2019-03-16] MEDS: GABAPENTIN 300 MG CAP PO SCH ×3 (09:02→22:40)
[2019-03-16] MEDS: ATORVASTATIN 40 MG TAB PO SCH (09:02)
[2019-03-16] MEDS: PANTOPRAZOLE 40 MG TABLET PO SCH (09:02)
[2019-03-16] MEDS: oxyCODONE-APAP 5-325MG 1 EACH TAB PO PRN ×2 (09:02→17:17)
[2019-03-16] MEDS: FERROUS SULFATE 325 MG TAB PO SCH ×2 (09:02→19:56)
[2019-03-16] MEDS: AMIODARONE 200 MG TAB PO SCH (09:02)
[2019-03-16] MEDS: ASPIRIN 81 MG PO SCH (09:02)
[2019-03-16] MEDS: IPRATROPIUM-ALBUTEROL 3 ML NEB INHALATION SCH ×4 (09:57→21:02)
--- NOTE | 2019-03-16 09:57 | XR ---
EXAMINATION TYPE: XR chest 2V DATE OF EXAM: 03/16/2019 HISTORY: pneumonia. REFERENCE: Previous study dated 03/15/2019. FINDINGS: The lungs are clear. The heart is mildly prominent. Pleural spaces are clear. IMPRESSION: MINIMAL CARDIOMEGALY
--- NOTE | 2019-03-16 12:29 | P.PN ---
Subjective Progress Note Date: 03/16/19 Patient seen and examined at bedside, reporting her breathing and coughing are improved, reports that she's not as weak and that her appetite is returning. She ate a little bit less than half of her breakfast, she does still continue to be fatigued. Continues on 2 L by nasal cannula. Recently received breathing treatment. Blood pressures continue to be borderline, Hemoccult is pending. Hemoglobin 8.7 post transfusion of 1 unit of packed RBCs. No acute events overnight Objective - Vital Signs Vital signs: Vital Signs Temp 98.1 F 03/16/19 08:20 Pulse 82 03/16/19 08:20 Resp 16 03/16/19 08:20 BP 108/58 03/16/19 08:20 Pulse Ox 94 L 03/16/19 08:20 Intake & Output 03/15/19 03/16/19 03/16/19 18:59 06:59 18:59 Intake Total 310 120 Output Total 450 Balance -140 120 Weight 61.235 kg 59.5 kg Intake: Oral 120 Blood Product 310 Rc As-3 Unit 310 [id number] Output: Urine 450 Other: Voiding Method Incontinent # Voids 1 # Bowel Movements 1 - Exam Constitutional: No acute distress, conversant, pleasant Eyes: Anicteric sclerae, moist conjunctiva, no lid-lag, PERRLA ENMT: NC/AT,Oropharynx clear, no erythema, exudates Neck:Supple, FROM, no masses, or JVD, No carotid bruits; No thyromegaly Lungs: Clear to auscultation, Clear to percussion, Normal respiratory effort, no accessory muscle use Cardiovascular: Heart regular in rate and rhythm, No murmurs, gallops, or rubs no peripheral edema Abdominal: Soft Nontender, nom distended, no guarding, no rebound or rigidity, Normoactive bowel sounds No hepatomegaly, No splenomegaly, No palpable mass No abdominal wall hernia noted Skin: Normal temperature, tone, texture, turgor, No induration No subcutaneous nodules, No rash, lesions, No ulcers Extremities:No digital cyanosis No clubbing, Pedal pulses intact and symmetrical Radial pulses intact and symmetrical Normal gait and station, No calf tenderness Psychiatric: Alert and oriented to person, place and time, Appropriate affect Intact judgement Neuro: Muscles Strength 5/5 in all 4 extremities, Sensation to light touch grossly present throughout, Cranial nerves II-XII grossly intact. No focal sensory deficits - Labs CBC & Chem 7: 03/16/19 06:16 03/16/19 06:16 Labs: Abnormal Lab Results - Last 24 Hours (Table) 03/15/19 03/15/19 03/15/19 Range/Units 18:25 18:25 18:25 WBC 14.1 H (3.8-10.6) k/uL RBC 2.53 L (3.80-5.40) m/uL Hgb 7.9 L (11.4-16.0) gm/dL Hct 25.3 L (34.0-46.0) % RDW (11.5-15.5) % Neutrophils # 11.9 H (1.3-7.7) k/uL Lymphocytes # (1.0-4.8) k/uL PT 15.1 H (9.0-12.0) sec INR 1.5 H (<1.2) Sodium 133 L (137-145) mmol/L Chloride 96 L (98-107) mmol/L Carbon Dioxide 32 H (22-30) mmol/L Creatinine (0.52-1.04) mg/dL Glucose (74-99) mg/dL Calcium 8.3 L (8.4-10.2) mg/dL Total Bilirubin (0.2-1.3) mg/dL Total Protein 5.1 L (6.3-8.2) g/dL Albumin 2.5 L (3.5-5.0) g/dL Crossmatch 03/15/19 03/16/19 03/16/19 Range/Units 23:55 06:16 06:16 WBC (3.8-10.6) k/uL RBC 2.82 L (3.80-5.40) m/uL Hgb 8.7 L (11.4-16.0) gm/dL Hct 27.3 L (34.0-46.0) % RDW 16.3 H (11.5-15.5) % Neutrophils # 9.5 H (1.3-7.7) k/uL Lymphocytes # 0.5 L (1.0-4.8) k/uL PT (9.0-12.0) sec INR (<1.2) Sodium 135 L (137-145) mmol/L Chloride (98-107) mmol/L Carbon Dioxide 31 H (22-30) mmol/L Creatinine 0.51 L (0.52-1.04) mg/dL Glucose 120 H (74-99) mg/dL Calcium 7.5 L (8.4-10.2) mg/dL Total Bilirubin 1.4 H (0.2-1.3) mg/dL Total Protein 4.5 L (6.3-8.2) g/dL Albumin 2.2 L (3.5-5.0) g/dL Crossmatch See Detail Assessment and Plan Assessment: Acute COPD exacerbation * chest x-ray showing only cardiomegaly no suggestion of infiltrates * Continue systemic steroids with prednisone, continue bronchodilator DuoNeb breathing treatments, Symbicort and antibiotics with Levaquin Chronic respiratory failure * Patient continued on baseline O2 requirements at 2 L Symptomatic anemia * Hemoccult pending * Hemoglobin stable at 8.7 after 1 unit packed RBC transfusion Hypotension * Continue to hold antihypertensives, we'll discontinue Imdur * Continue IV fluids History of CAD with history of VT arrest s/p AICD * Continue with amiodarone * Currently asymptomatic Hypothyroidism * Continue levothyroxine supplementation Disposition * Patient doing well white count has resolved we'll see how she works in physical therapy follow-up iron studies and Hemoccult * Anticipated discharge 1-2 days
[2019-03-16] MEDS: PRIMIDONE 50 MG TAB PO SCH (19:56)
[2019-03-16] MEDS ORDERED: ISOSORBIDE MONONITRATE ER 30 MG TAB.ER.24H PO SCH (21:00)
[2019-03-16] MEDS ORDERED: LEVOFLOXACIN 750MG-D5W PMX 750 MG in DEXTROSE/WATER 1 150ML.BAG IVPB SCH (21:00)
[2019-03-17] MEDS: oxyCODONE-APAP 5-325MG 1 EACH TAB PO PRN ×3 (01:17→17:23)
[2019-03-17] MEDS: SODIUM CHLORIDE 0.9% 1,000 ML IV SCH ×2 (01:20→14:21)
[2019-03-17] MEDS: LEVOTHYROXINE 100 MCG TAB PO SCH (05:35)
[2019-03-17] MEDS: IPRATROPIUM-ALBUTEROL 3 ML NEB INHALATION SCH ×4 (08:24→20:59)
[2019-03-17] MEDS: SYMBICORT 160-4.5 MCG INHALER INHALATION SCH ×3 (08:25→20:59)
[2019-03-17] MEDS: PANTOPRAZOLE 40 MG TABLET PO SCH (09:20)
[2019-03-17] MEDS: ATORVASTATIN 40 MG TAB PO SCH (09:20)
[2019-03-17] MEDS: GABAPENTIN 300 MG CAP PO SCH ×3 (09:20→21:37)
[2019-03-17] MEDS: CYANOCOBALAMIN 500 MCG TAB PO SCH (09:20)
[2019-03-17] MEDS: FERROUS SULFATE 325 MG TAB PO SCH ×2 (09:20→21:36)
[2019-03-17] MEDS: ASPIRIN 81 MG PO SCH (09:21)
[2019-03-17] MEDS: THIAMINE 100 MG TAB PO SCH (09:21)
[2019-03-17] MEDS: predniSONE 20 MG TAB PO SCH (09:21)
[2019-03-17] MEDS: AMIODARONE 200 MG TAB PO SCH (09:21)
[2019-03-17] MEDS: FOLIC ACID 1 MG TAB PO SCH (09:21)
[2019-03-17] MEDS: ARIPiprazole 10 MG TAB PO SCH (09:33)
[2019-03-17] MEDS: PRIMIDONE 50 MG TAB PO SCH ×2 (09:33→21:37)
[2019-03-17 09:34] LABS: Anisocytosis Slight; Basophils % (A) 0 %; Eosinophils % (A) 0 %; HCT 28.4 % (34.0-46.0); HGB 8.9 gm/dL (11.4-16.0); Hypochromasia Moderate; Lymphocytes # (A) 1.5 k/uL (1.0-4.8); Lymphocytes % (A) 14 %; MCH 30.4 pg (25.0-35.0); MCHC 31.4 g/dL (31.0-37.0); MCV 96.8 fL (80.0-100.0); Mean Platelet Volume 8.1; Monocytes # (A) 0.6 k/uL (0-1.0); Monocytes % (A) 6 %; Neutrophils # (A) 8.2 k/uL (1.3-7.7); Neutrophils % (A) 78 %; Platelet Count 272 k/uL (150-450); Poikilocytosis Slight; RBC 2.93 m/uL (3.80-5.40); WBC 10.6 k/uL (3.8-10.6)
[2019-03-17 09:47] LABS: African American GFR (CKD) >90 (>60 ml/min/1.73 sqM); Anion Gap 4 mmol/L; Blood Urea Nitrogen 7 mg/dL (7-17); Calcium 7.8 mg/dL (8.4-10.2); Carbon Dioxide 31 mmol/L (22-30); Chloride 102 mmol/L (98-107); Glucose 111 mg/dL (74-99); Non-African American GFR(CKD) >90 (>60 ml/min/1.73 sqM); Potassium 3.2 mmol/L (3.5-5.1); Sodium 137 mmol/L (137-145)
[2019-03-17] MEDS ORDERED: Potassium Replacement Protocol 1 EACH MISC MISCELLANE PRN (11:22)
[2019-03-17] MEDS: POTASSIUM CHLORIDE ER 20 MEQ TAB.ER PO SCH ×2 (12:20→14:18)
--- NOTE | 2019-03-17 13:14 | P.PN ---
Subjective Progress Note Date: 03/17/19 Patient seen and examined at bedside. Reports she's not been up and ambulatory is been using a bedpan, a.m. labs are pending. Patient refused suggestion of going to longterm facility short-term, the patient has been refusing to get up unless with physical therapy. Serum potassium 3.2 today, hemoglobin stable at 8.9 Objective - Vital Signs Vital signs: Vital Signs Temp 98.2 F 03/17/19 04:00 Pulse 76 03/17/19 08:32 Resp 16 03/17/19 04:00 BP 117/67 03/17/19 04:00 Pulse Ox 97 03/17/19 04:00 Intake & Output 03/16/19 03/17/19 03/17/19 18:59 06:59 18:59 Intake Total 960 240 Output Total 300 Balance 960 -60 Weight 59 kg Intake: Intake, IV Titration 600 Amount Sodium Chloride 0.9% 1, 600 000 ml @ 75 mls/hr IV . [id number] [facility] Rx#:[id number] Oral 360 240 Output: Urine 300 Other: Voiding Method Incontinent Bedpan Incontinent # Voids 250 1 - Exam Constitutional: No acute distress, conversant, pleasant Eyes: Anicteric sclerae, moist conjunctiva, no lid-lag, PERRLA ENMT: NC/AT,Oropharynx clear, no erythema, exudates Neck:Supple, FROM, no masses, or JVD, No carotid bruits; No thyromegaly Lungs: Clear to auscultation, Clear to percussion, Normal respiratory effort, no accessory muscle use Cardiovascular: Heart regular in rate and rhythm, No murmurs, gallops, or rubs no peripheral edema Abdominal: Soft Nontender, nom distended, no guarding, no rebound or rigidity, Normoactive bowel sounds No hepatomegaly, No splenomegaly, No palpable mass No abdominal wall hernia noted Skin: Normal temperature, tone, texture, turgor, No induration No subcutaneous nodules, No rash, lesions, No ulcers Extremities:No digital cyanosis No clubbing, Pedal pulses intact and s ymmetrical Radial pulses intact and symmetrical Normal gait and station, No calf tenderness Psychiatric: Alert and oriented to person, place and time, Appropriate affect Intact judgement Neuro: Muscles Strength 5/5 in all 4 extremities, Sensation to light touch grossly present throughout, Cranial nerves II-XII grossly intact. No focal sensory deficits - Labs CBC & Chem 7: 03/17/19 09:16 03/17/19 09:16 Labs: Microbiology - Last 24 Hours (Table) 03/15/19 18:16 Blood Culture - Preliminary Blood No Growth after 24 hours Assessment and Plan Assessment: Acute COPD exacerbation * chest x-ray showing only cardiomegaly no suggestion of infiltrates we'll discontinue Levaquin today * Continue systemic steroids with prednisone, continue bronchodilator DuoNeb breathing treatments, Symbicort Chronic respiratory failure * Patient continued on baseline O2 requirements at 2 L Symptomatic anemia * Hemoccult pending * Hemoglobin stable at 8.9 after 1 unit packed RBC transfusion Hypotension * Resolved blood pressure stable off antihypertensives * Continue to hold antihypertensives, we'll discontinue Imdur * Continue IV fluids Hypokalemia * Initiated on potassium replacement protocol History of CAD with history of VT arrest s/p AICD * Continue with amiodarone * Currently asymptomatic Hypothyroidism * Continue levothyroxine supplementation Weakness * Patient to be seen by PT OT will likely need placement Disposition * Patient doing well white count has resolved we'll see how she works in physical therapy follow-up iron studies and Hemoccult * Anticipated discharge 1-2 days
[2019-03-17] MEDS ORDERED: POTASSIUM CHLORIDE ER 20 MEQ TAB.ER PO ONE (18:00)
[2019-03-18] MEDS: oxyCODONE-APAP 5-325MG 1 EACH TAB PO PRN ×3 (01:09→23:42)
[2019-03-18] MEDS: SODIUM CHLORIDE 0.9% 1,000 ML IV SCH ×2 (06:22→11:53)
[2019-03-18] MEDS: LEVOTHYROXINE 100 MCG TAB PO SCH (06:22)
[2019-03-18] MEDS: SYMBICORT 160-4.5 MCG INHALER INHALATION SCH ×2 (07:50→21:04)
[2019-03-18] MEDS: IPRATROPIUM-ALBUTEROL 3 ML NEB INHALATION SCH ×4 (07:50→21:04)
[2019-03-18] MEDS: ASPIRIN 81 MG PO SCH (08:32)
[2019-03-18] MEDS: ARIPiprazole 10 MG TAB PO SCH (08:32)
[2019-03-18] MEDS: AMIODARONE 200 MG TAB PO SCH (08:32)
[2019-03-18] MEDS: ATORVASTATIN 40 MG TAB PO SCH (08:32)
[2019-03-18] MEDS: FERROUS SULFATE 325 MG TAB PO SCH ×2 (08:33→22:08)
[2019-03-18] MEDS: CYANOCOBALAMIN 500 MCG TAB PO SCH (08:33)
[2019-03-18] MEDS: FOLIC ACID 1 MG TAB PO SCH (08:33)
[2019-03-18] MEDS: GABAPENTIN 300 MG CAP PO SCH ×2 (08:33→15:32)
[2019-03-18] MEDS: PANTOPRAZOLE 40 MG TABLET PO SCH (08:34)
[2019-03-18] MEDS: predniSONE 20 MG TAB PO SCH (08:34)
[2019-03-18] MEDS: PRIMIDONE 50 MG TAB PO SCH ×2 (08:34→22:08)
[2019-03-18] MEDS: THIAMINE 100 MG TAB PO SCH (08:34)
[2019-03-18 09:38] LABS: Ferritin 172.3 ng/mL (10.0-291.0)
[2019-03-18 09:45] LABS: % Iron Saturation 79.12 (12.00-45.00)
[2019-03-18 13:39] LABS: HCT 32.4 % (34.0-46.0); Hypochromasia Marked; MCH 30.2 pg (25.0-35.0); MCV 97.5 fL (80.0-100.0); Mean Platelet Volume 7.6; Platelet Count 356 k/uL (150-450); RBC 3.32 m/uL (3.80-5.40); RDW 15.7 % (11.5-15.5); WBC 15.8 k/uL (3.8-10.6)
[2019-03-18 13:47] LABS: African American GFR (CKD) >90 (>60 ml/min/1.73 sqM); Anion Gap 4 mmol/L; Blood Urea Nitrogen 7 mg/dL (7-17); Carbon Dioxide 30 mmol/L (22-30); Chloride 101 mmol/L (98-107); Glucose 150 mg/dL (74-99); Magnesium 1.5 mg/dL (1.6-2.3); Non-African American GFR(CKD) >90 (>60 ml/min/1.73 sqM); Potassium 3.7 mmol/L (3.5-5.1); Sodium 135 mmol/L (137-145)
[2019-03-18] MEDS: ALPRAZolam 0.25 MG TAB PO PRN ×2 (15:32→23:43)
[2019-03-18] MEDS: MAGNESIUM SULFATE-D5W PMX 1 GM in DEXTROSE/WATER 1 100ML.BAG IVPB SCH ×2 (17:07→18:36)
[2019-03-18] MEDS ORDERED: BUMETANIDE 0.25 MG/ML 4 ML VIAL IVP STA (17:56)
--- NOTE | 2019-03-18 18:06 | P.PN ---
Subjective Principal diagnosis: Shortness of breath and generalized weakness This is 63-year-old female with history of COPD on home oxygen 1-2 LPM as needed, congestive heart failure with EF of 40-50%, multiple sclerosis and chronic anemia who was brought from home due to worsening generalized weakness and shortness of breath with dry nonproductive cough. Her chest x-ray initially acute changes. Her weakness was generalized with fatigue and no stamina. No focal deficits. On admission she was found to be wheezy and put to COPD exacerb ation protocol with antibiotics, steroids and breathing treatments. currently she reports to be feeling much better with steroids and breathing treatments. Her blood cultures remained no growth to date and she remained afebrile. In January of this year patient was admitted with anemia and GI bleed and a CAT scan found to have large fungating eroding mass in her stomach and transferred here for further management. Patient is not sure about the results and treatment of this hospitalization. I spoke with her sister who told the patient spent about a week in [facility] had EGD and biopsy transfusion and then was discharged home with instructions to follow-up with oncologist for resu lts of the biopsy. Currently patient is mentions feeling much better, she is up in bed eating lunch . She basically has quite a bit of a dystrophic muscles in her legs and she is barely walking with the help of walker and another person on baseline. Objective - Vital Signs Vital signs: Vital Signs Temp 98.0 F 03/18/19 16:00 Pulse 83 03/18/19 16:59 Resp 18 03/18/19 16:00 BP 130/73 03/18/19 16:00 Pulse Ox 97 03/18/19 16:47 Intake & Output 03/17/19 03/18/19 03/18/19 18:59 06:59 18:59 Intake Total 837 680 Output Total 300 550 Balance 537 -550 680 Weight 59.5 kg Intake: Intake, IV Titration 600 Amount Sodium Chloride 0.9% 1, 600 000 ml @ 75 mls/hr IV . [id number] [facility] Rx#:[id number] Oral 237 680 Output: Urine 300 550 Other: Voiding Method Bedpan Bedpan Bedpan Incontinent # Voids 2 4 4 # Bowel Movements 1 - Constitutional General appearance: Present: cooperative, no acute distress - EENT Eyes: Present: EOMI, PERRLA - Neck Neck: Absent: lymphadenopathy - Respiratory Respiratory: bilateral: diminished, wheezing - Cardiovascular Rhythm: regular Heart sounds: normal: S1, S2 - Gastrointestinal General gastrointestinal: Present: normal bowel sounds. Absent: distended, organomegaly, tenderness - Neurologic Neurologic: Present: CNII-XII intact. Absent: focal deficits - Musculoskeletal Musculoskeletal: Present: generalized weakness - Psychiatric Psychiatric: Present: A&O x's 3 - Labs CBC & Chem 7: 03/18/19 13:19 03/18/19 13:19 Labs: Abnormal Lab Results - Last 24 Hours (Table) 03/16/19 03/18/19 03/18/19 Range/Units 06:16 07:55 13:19 WBC 15.8 H (3.8-10.6) k/uL RBC 3.32 L (3.80-5.40) m/uL Hgb 10.0 L (11.4-16.0) gm/dL Hct 32.4 L (34.0-46.0) % RDW 15.7 H (11.5-15.5) % Sodium (137-145) mmol/L Creatinine (0.52-1.04) mg/dL Glucose (74-99) mg/dL Calcium (8.4-10.2) mg/dL Magnesium (1.6-2.3) mg/dL TIBC 182 L (228-460) ug/dL % Saturation 79.12 H (12.00-45.00) Stool Occult Blood Positive H (Negative) 03/18/19 Range/Units 13:19 WBC (3.8-10.6) k/uL RBC (3.80-5.40) m/uL Hgb (11.4-16.0) gm/dL Hct (34.0-46.0) % RDW (11.5-15.5) % Sodium 135 L (137-145) mmol/L Creatinine 0.46 L (0.52-1.04) mg/dL Glucose 150 H (74-99) mg/dL Calcium 8.0 L (8.4-10.2) mg/dL Magnesium 1.5 L (1.6-2.3) mg/dL TIBC (228-460) ug/dL % Saturation (12.00-45.00) Stool Occult Blood (Negative) Microbiology - Last 24 Hours (Table) 03/15/19 18:16 Blood Culture - Preliminary Blood No Growth after 48 hours - Imaging and Cardiology Chest x-ray: report reviewed (Trace peripheral edema no warmth or tenderness in her lower extremities) Assessment and Plan Assessment: 1. Dyspnea Probably multifactorial due to COPD exacerbation and acute bronchitis and overall deconditioning and severe Scoliosis Continue steroids and bronchodilators Supplemental oxygen Incentive spirometer Increase activity as tolerated 2. Chronic systolic congestive heart failure Problem related mild exacerbation due to COPD exacerbation and hydration Discontinue IV fluids Will give 1 dose of Bumex now 3. Mild hypomagnesemia I ordered IV and by mouth supplementation. Magnesium 4. Chronic anemia Iron indices not indicative of iron deficiency probably due to chronic anemia of chronic disease although component of slow GI bleed cannot be excluded and presence of the large gastric mass I discussed with the patient and her sister and we're obtaining the records from [facility] regarding gastric mass upon which we will have further discussion excellent continue to monitor hemoglobin 5. Multiple sclerosis with severe debility Patient's lower extremity weakness per patient appears to be at baseline No weakness in the upper extremities or cranial nerves Continue with physical therapy 6. Chronic hypoxic respiratory failure Patient is currently in the baseline level of oxygen Overall symptoms guarded prognosis We will await results from [facility] to further discuss goals of care Patient is DO NOT RESUSCITATE
[2019-03-18] MEDS: GABAPENTIN 100 MG CAP PO SCH (22:07)
[2019-03-19 06:28] LABS: HGB 8.8 gm/dL (11.4-16.0); Hypochromasia Marked; MCH 30.8 pg (25.0-35.0); MCHC 31.5 g/dL (31.0-37.0); MCV 97.8 fL (80.0-100.0); Mean Platelet Volume 7.4; Platelet Count 284 k/uL (150-450); RBC 2.86 m/uL (3.80-5.40); RDW 15.4 % (11.5-15.5); WBC 9.9 k/uL (3.8-10.6)
[2019-03-19 06:36] LABS: ALT 28 U/L (9-52); AST 36 U/L (14-36); African American GFR (CKD) >90 (>60 ml/min/1.73 sqM); Albumin 2.1 g/dL (3.5-5.0); Alkaline Phosphatase 55 U/L (38-126); Anion Gap 3 mmol/L; Blood Urea Nitrogen 6 mg/dL (7-17); Calcium 7.8 mg/dL (8.4-10.2); Carbon Dioxide 32 mmol/L (22-30); Chloride 102 mmol/L (98-107); Glucose 86 mg/dL (74-99); Non-African American GFR(CKD) >90 (>60 ml/min/1.73 sqM); Potassium 3.3 mmol/L (3.5-5.1); Sodium 137 mmol/L (137-145); Total Bilirubin 0.3 mg/dL (0.2-1.3); Total Protein 4.4 g/dL (6.3-8.2)
[2019-03-19] MEDS: LEVOTHYROXINE 100 MCG TAB PO SCH (07:32)
[2019-03-19] MEDS: ASPIRIN 81 MG PO SCH (08:21)
[2019-03-19] MEDS: GABAPENTIN 100 MG CAP PO SCH ×2 (08:21→20:31)
[2019-03-19] MEDS: oxyCODONE-APAP 5-325MG 1 EACH TAB PO PRN ×2 (08:21→18:38)
[2019-03-19] MEDS: ATORVASTATIN 40 MG TAB PO SCH (08:21)
[2019-03-19] MEDS: AMIODARONE 200 MG TAB PO SCH (08:22)
[2019-03-19] MEDS: PANTOPRAZOLE 40 MG TABLET PO SCH (08:23)
[2019-03-19] MEDS: predniSONE 20 MG TAB PO SCH (08:23)
[2019-03-19] MEDS: ARIPiprazole 10 MG TAB PO SCH (08:23)
[2019-03-19] MEDS: PRIMIDONE 50 MG TAB PO SCH ×2 (08:23→20:31)
[2019-03-19] MEDS: FERROUS SULFATE 325 MG TAB PO SCH ×2 (08:27→20:31)
[2019-03-19] MEDS: MAGNESIUM OXIDE 400 MG TAB PO SCH (08:27)
[2019-03-19] MEDS: THIAMINE 100 MG TAB PO SCH (08:27)
[2019-03-19] MEDS: FOLIC ACID 1 MG TAB PO SCH (08:27)
[2019-03-19] MEDS: CYANOCOBALAMIN 500 MCG TAB PO SCH (08:27)
[2019-03-19] MEDS: SYMBICORT 160-4.5 MCG INHALER INHALATION SCH ×3 (08:50→20:11)
[2019-03-19] MEDS: IPRATROPIUM-ALBUTEROL 3 ML NEB INHALATION SCH ×5 (08:50→20:11)
[2019-03-19] MEDS: ALPRAZolam 0.25 MG TAB PO PRN ×2 (11:37→20:31)
--- NOTE | 2019-03-19 21:49 | P.PN ---
Progress Note - Text Progress Note Date: 03/19/19 Interval history: This is a 63-year-old patient who follows with visiting physicians Dr. Vera. Lewis perera has a rather extensive medical history. Normally uses a wheelchair or a walker to get about. Chronic stable medical conditions include, coronary artery disease, COPD in an ex-smoker, chronic fibromyalgia, GERD, hyperlipidemia, essential hypertension, osteoarthritis, hypothyroid, chronic multiple sclerosis, peripheral neuropathy lower extremity, chronic urinary incontinence. Patient at the end of January was here at the hospital was found to have a large abdominal mass invading surrounding structures and patient syndrome to [facility]. At this percent clear what transpired there. Patient now admitted with feeling weak tired and low hemoglobin. Today-laying in bed. Tired. Patient had about 25% of breakfast and 75% of lunch. Review of systems: Was done for constitutional, cardiovascular, GI, pulmonary. relevant finding as above Active Medications Albuterol Sulfate (Ventolin Nebulized) 2.5 mg INHALATION RT-Q4H PRN PRN Reason: Shortness Of Breath Or Wheezing Albuterol/Ipratropium (Duoneb 0.5 Mg-3 Mg/3 Ml Soln) 3 ml INHALATION RT-QID [facility] Last Admin: 03/19/19 20:11 Dose: 3 ml Documented by: Alprazolam (Xanax) 0.25 mg PO TID PRN PRN Reason: Anxiety Last Admin: 03/19/19 20:31 Dose: 0.25 mg Documented by: Amiodarone HCl (Cordarone) 100 mg PO DAILY [facility] Last Admin: 03/19/19 08:22 Dose: 100 mg Documented by: Aripiprazole (Abilify) 10 mg PO DAILY [facility] Last Admin: 03/19/19 08:23 Dose: 10 mg Documented by: Aspirin (Aspirin) 81 mg PO DAILY [facility] Last Admin: 03/19/19 08:21 Dose: 81 mg Documented by: Atorvastatin Calcium (Lipitor) 40 mg PO DAILY [facility] Last Admin: 03/19/19 08:21 Dose: 40 mg Documented by: Budesonide/Formoterol Fumarate (Symbicort 160-4.5 Mcg Inhaler) 2 puff INHALATION RT-BID [facility] Last Admin: 03/19/19 20:11 Dose: Not Given Documented by: Cyanocobalamin (Vitamin B-12) 1,000 mcg PO DAILY [facility] Last Admin: 03/19/19 08:27 Dose: 1,000 mcg Documented by: Ferrous Sulfate (Feosol) 325 mg PO BID [facility] Last Admin: 03/19/19 20:31 Dose: 325 mg Documented by: Folic Acid (Folic Acid) 1 mg PO DAILY [facility] Last Admin: 03/19/19 08:27 Dose: 1 mg Documented by: Gabapentin (Neurontin) 100 mg PO BID [facility] Last Admin: 03/19/19 20:31 Dose: 100 mg Documented by: Levothyroxine Sodium (Synthroid) 100 mcg PO DAILY@0630 [facility] Last Admin: 03/19/19 07:32 Dose: Not Given Documented by: Magnesium Oxide (Mag-Ox) 400 mg PO DAILY [facility] Last Admin: 03/19/19 08:27 Dose: 400 mg Documented by: Miscellaneous Information (Pneumonia Protocol Utilized) 1 each PO ONCE PRN PRN Reason: Per Protocol Miscellaneous Information (Potassium Per Protocol) 1 each MISCELLANE DAILY PRN; Protocol PRN Reason: Per Protocol Oxycodone/Acetaminophen (Percocet 5-325) 1 each PO Q8H PRN PRN Reason: Pain Last Admin: 03/19/19 18:38 Dose: 1 each Documented by: Pantoprazole Sodium (Protonix) 40 mg PO DAILY [facility] Last Admin: 03/19/19 08:23 Dose: 40 mg Documented by: Primidone (Mysoline) 50 mg PO BID [facility] Last Admin: 03/19/19 20:31 Dose: 50 mg Documented by: Thiamine HCl (Vitamin B-1) 100 mg PO DAILY [facility] Last Admin: 03/19/19 08:27 Dose: 100 mg Documented by: Physical examination: VITAL SIGNS: 97.8, 87, 18, 11 3/61, 90% on 3 L GENERAL: Laying in bed, tired EYES: Pupils equal. Conjunctiva normal. HEENT: External appearance of nose and ears normal, oral cavity grossly normal. NECK: JVD not raised; masses not palpable. HEART: First and second heart sounds are normal; no edema. LUNGS: Respiratory rate increased, decreased breath sounds. ABDOMEN: Soft, upper abdominal tenderness, no guarding or rigidity, liver spleen not palpable, no masses palpable. LYMPHATICS: No lymph nodes palpable in the axilla and neck. PSYCH: Alert and oriented x3; mood and affect normal. Investigations: White count 9.9 hemoglobin 8.8 progression 3.3 creatinine 0.48 From last admission: Abdominal ultrasound-possible cirrhosis, mildly thickened gallbladder wall, suspect gallstone, large complex mass temperature was centimeters in the mid abdomen Computed tomography scan abdomen-large partially cystic partially solid mass appears to rise from the great echo which was normal measuring 18 by then 0.7 x 1.2 cm. There is displacement of the stomach with luminal narrowing and ear obstruction. The mass appears to infiltrate into the adjacent duodenum. Assessment: -Normocytic anemia possibly a combination of GI bleed and anemia of related to abdominal masses. -Dyazb-efdhtgyjg-qvlfxsmrd mass, workup done at [facility]. Not have the details. -Solitary gallstone -Coronary artery disease -COPD in an ex-smoker -Chronic fibromyalgia -GERD -Hyperlipidemia -Essential hypertension -Primary osteoarthritis -Hypothyroid -Chronic multiple sclerosis -Peripheral neuropathy both the lower extremity -Chronic urinary incontinence -Chronic gait dysfunction uses a walker/wheelchair Plan: Continue current medication. Plan. Overall prognosis guarded. We'll try to get results from [facility] from the last admission.
[2019-03-20] MEDS: oxyCODONE-APAP 5-325MG 1 EACH TAB PO PRN ×3 (02:30→22:13)
[2019-03-20] MEDS: LEVOTHYROXINE 100 MCG TAB PO SCH (06:27)
[2019-03-20] MEDS: IPRATROPIUM-ALBUTEROL 3 ML NEB INHALATION SCH ×4 (07:42→19:35)
[2019-03-20] MEDS: SYMBICORT 160-4.5 MCG INHALER INHALATION SCH ×3 (07:42→19:48)
[2019-03-20 08:02] LABS: HCT 29.7 % (34.0-46.0); HGB 9.2 gm/dL (11.4-16.0); Hypochromasia Marked; MCH 30.4 pg (25.0-35.0); MCHC 31.1 g/dL (31.0-37.0); Mean Platelet Volume 7.5; Platelet Count 363 k/uL (150-450); RBC 3.03 m/uL (3.80-5.40); RDW 15.3 % (11.5-15.5); WBC 13.2 k/uL (3.8-10.6)
[2019-03-20 08:14] LABS: ALT 27 U/L (9-52); AST 46 U/L (14-36); African American GFR (CKD) >90 (>60 ml/min/1.73 sqM); Albumin 2.4 g/dL (3.5-5.0); Alkaline Phosphatase 55 U/L (38-126); Anion Gap 6 mmol/L; Blood Urea Nitrogen 7 mg/dL (7-17); Calcium 7.9 mg/dL (8.4-10.2); Carbon Dioxide 31 mmol/L (22-30); Chloride 99 mmol/L (98-107); Glucose 107 mg/dL (74-99); Non-African American GFR(CKD) >90 (>60 ml/min/1.73 sqM); Potassium 3.3 mmol/L (3.5-5.1); Sodium 136 mmol/L (137-145); Total Bilirubin 0.4 mg/dL (0.2-1.3); Total Protein 4.9 g/dL (6.3-8.2)
[2019-03-20] MEDS: ALPRAZolam 0.25 MG TAB PO PRN ×2 (09:53→17:28)
[2019-03-20] MEDS: ATORVASTATIN 40 MG TAB PO SCH (09:53)
[2019-03-20] MEDS: ASPIRIN 81 MG PO SCH (09:53)
[2019-03-20] MEDS: FERROUS SULFATE 325 MG TAB PO SCH ×2 (09:54→20:45)
[2019-03-20] MEDS: CYANOCOBALAMIN 500 MCG TAB PO SCH (09:54)
[2019-03-20] MEDS: GABAPENTIN 100 MG CAP PO SCH ×2 (09:55→20:45)
[2019-03-20] MEDS: FOLIC ACID 1 MG TAB PO SCH (09:55)
[2019-03-20] MEDS: PANTOPRAZOLE 40 MG TABLET PO SCH (09:56)
[2019-03-20] MEDS: MAGNESIUM OXIDE 400 MG TAB PO SCH (09:56)
[2019-03-20] MEDS: ARIPiprazole 10 MG TAB PO SCH (09:57)
[2019-03-20] MEDS: THIAMINE 100 MG TAB PO SCH (09:57)
[2019-03-20] MEDS ORDERED: POTASSIUM CHLORIDE ER 20 MEQ TAB.ER PO STA (10:11)
[2019-03-20] MEDS: AMIODARONE 100 MG TAB PO SCH (10:48)
[2019-03-20] MEDS: PRIMIDONE 50 MG TAB PO SCH ×2 (10:48→20:45)
[2019-03-20] MEDS: AMIODARONE 200 MG TAB PO SCH (10:59)
--- NOTE | 2019-03-21 00:23 | P.PN ---
Progress Note - Text Progress Note Date: 03/20/19 Interval history: This is a 63-year-old patient who follows with visiting physicians Dr. Vera. Lewis perera has a rather extensive medical history. Normally uses a wheelchair or a walker to get about. Chronic stable medical conditions include, coronary artery disease, COPD in an ex-smoker, chronic fibromyalgia, GERD, hyperlipidemia, essential hypertension, osteoarthritis, hypothyroid, chronic multiple sclerosis, peripheral neuropathy lower extremity, chronic urinary incontinence. Patient at the end of January was here at the hospital was found to have a large abdominal mass invading surrounding structures and patient syndrome to [facility]. At this percent clear what transpired there. Patient now admitted with feeling weak tired and low hemoglobin. Today-laying in bed. Awake. Comfortable. Had requested the documents from [facility]. Only partial documents that come through. He requested more again. Review of systems: Was done for constitutional, cardiovascular, GI, pulmonary. relevant finding as above Active Medications Albuterol Sulfate (Ventolin Nebulized) 2.5 mg INHALATION RT-Q4H PRN PRN Reason: Shortness Of Breath Or Wheezing Last Admin: 03/20/19 01:38 Dose: 2.5 mg Documented by: Albuterol/Ipratropium (Duoneb 0.5 Mg-3 Mg/3 Ml Soln) 3 ml INHALATION RT-QID [facility] Last Admin: 03/20/19 19:35 Dose: 3 ml Documented by: Alprazolam (Xanax) 0.25 mg PO TID PRN PRN Reason: Anxiety Last Admin: 03/20/19 17:28 Dose: 0.25 mg Documented by: Amiodarone HCl (Cordarone) 100 mg PO DAILY [facility] Last Admin: 03/20/19 10:48 Dose: 100 mg Documented by: Aripiprazole (Abilify) 10 mg PO DAILY [facility] Last Admin: 03/20/19 09:57 Dose: 10 mg Documented by: Aspirin (Aspirin) 81 mg PO DAILY [facility] Last Admin: 03/20/19 09:53 Dose: 81 mg Documented by: Atorvastatin Calcium (Lipitor) 40 mg PO DAILY [facility] Last Admin: 03/20/19 09:53 Dose: 40 mg Documented by: Budesonide/Formoterol Fumarate (Symbicort 160-4.5 Mcg Inhaler) 2 puff INHALATION RT-BID [facility] Last Admin: 03/20/19 19:48 Dose: Not Given Documented by: Cyanocobalamin (Vitamin B-12) 1,000 mcg PO DAILY [facility] Last Admin: 03/20/19 09:54 Dose: 1,000 mcg Documented by: Ferrous Sulfate (Feosol) 325 mg PO BID [facility] Last Admin: 03/20/19 20:45 Dose: 325 mg Documented by: Folic Acid (Folic Acid) 1 mg PO DAILY [facility] Last Admin: 03/20/19 09:55 Dose: 1 mg Documented by: Gabapentin (Neurontin) 100 mg PO BID [facility] Last Admin: 03/20/19 20:45 Dose: 100 mg Documented by: Levothyroxine Sodium (Synthroid) 100 mcg PO DAILY@0630 [facility] Last Admin: 03/20/19 06:27 Dose: 100 mcg Documented by: Magnesium Oxide (Mag-Ox) 400 mg PO DAILY [facility] Last Admin: 03/20/19 09:56 Dose: 400 mg Documented by: Miscellaneous Information (Pneumonia Protocol Utilized) 1 each PO ONCE PRN PRN Reason: Per Protocol Miscellaneous Information (Potassium Per Protocol) 1 each MISCELLANE DAILY PRN; Protocol PRN Reason: Per Protocol Oxycodone/Acetaminophen (Percocet 5-325) 1 each PO Q8H PRN PRN Reason: Pain Last Admin: 03/20/19 22:13 Dose: 1 each Documented by: Pantoprazole Sodium (Protonix) 40 mg PO DAILY [facility] Last Admin: 03/20/19 09:56 Dose: 40 mg Documented by: Primidone (Mysoline) 50 mg PO BID [facility] Last Admin: 03/20/19 20:45 Dose: 50 mg Documented by: Thiamine HCl (Vitamin B-1) 100 mg PO DAILY [facility] Last Admin: 03/20/19 09:57 Dose: 100 mg Documented by: Physical examination: VITAL SIGNS: 37.5, 94, 18, 133/72, 96% on 3 L GENERAL: Laying in bed, comfortable EYES: Pupils equal. Conjunctiva normal. HEENT: External appearance of nose and ears normal, oral cavity grossly normal. NECK: JVD not raised; masses not palpable. HEART: First and second heart sounds are normal; no edema. LUNGS: Respiratory rate increased, decreased breath sounds. ABDOMEN: Soft, upper abdominal tenderness, no guarding or rigidity, liver spleen not palpable, no masses palpable. LYMPHATICS: No lymph nodes palpable in the axilla and neck. PSYCH: Alert and oriented x3; mood and affect normal. Investigations: White count 13.2 hemoglobin 8.2 progression 3.3 creatinine 0.47 From last admission: Abdominal ultrasound-possible cirrhosis, mildly thickened gallbladder wall, suspect gallstone, large complex mass temperature was centimeters in the mid abdomen Computed tomography scan abdomen-large partially cystic partially solid mass appears to rise from the great echo which was normal measuring 18 by then 0.7 x 1.2 cm. There is displacement of the stomach with luminal narrowing and ear obstruction. The mass appears to infiltrate into the adjacent duodenum. Assessment: -Normocytic anemia possibly a combination of GI bleed and anemia of related to a bdominal masses. -Efzll-rtifongdu-mcybagmaz mass, workup done at [facility].-Awaiting discharge summary details -Solitary gallstone -Coronary artery disease -COPD in an ex-smoker -Chronic fibromyalgia -GERD -Hyperlipidemia -Essential hypertension -Primary osteoarthritis -Hypothyroid -Chronic multiple sclerosis -Peripheral neuropathy both the lower extremity -Chronic urinary incontinence -Chronic gait dysfunction uses a walker/wheelchair Plan: Continue current medication treatment plan. Awaiting documents from [facility]. Further plan from there.
[2019-03-21] MEDS: ALPRAZolam 0.25 MG TAB PO PRN ×3 (01:49→17:35)
[2019-03-21] MEDS: LEVOTHYROXINE 100 MCG TAB PO SCH (05:37)
[2019-03-21] MEDS: CYANOCOBALAMIN 500 MCG TAB PO SCH (09:10)
[2019-03-21] MEDS: ATORVASTATIN 40 MG TAB PO SCH (09:10)
[2019-03-21] MEDS: ASPIRIN 81 MG PO SCH (09:10)
[2019-03-21] MEDS: AMIODARONE 100 MG TAB PO SCH (09:10)
[2019-03-21] MEDS: THIAMINE 100 MG TAB PO SCH (09:10)
[2019-03-21] MEDS: ARIPiprazole 10 MG TAB PO SCH (09:10)
[2019-03-21] MEDS: GABAPENTIN 100 MG CAP PO SCH (09:11)
[2019-03-21] MEDS: oxyCODONE-APAP 5-325MG 1 EACH TAB PO PRN ×2 (09:11→17:35)
[2019-03-21] MEDS: PANTOPRAZOLE 40 MG TABLET PO SCH (09:11)
[2019-03-21] MEDS: PRIMIDONE 50 MG TAB PO SCH (09:11)
[2019-03-21] MEDS: MAGNESIUM OXIDE 400 MG TAB PO SCH (09:11)
[2019-03-21] MEDS: FERROUS SULFATE 325 MG TAB PO SCH (09:11)
[2019-03-21] MEDS: FOLIC ACID 1 MG TAB PO SCH (09:11)
[2019-03-21 09:12] LABS: HCT 33.5 % (34.0-46.0); HGB 10.4 gm/dL (11.4-16.0); Hypochromasia Moderate; MCH 30.3 pg (25.0-35.0); MCHC 31.2 g/dL (31.0-37.0); MCV 97.2 fL (80.0-100.0); Mean Platelet Volume 7.6; Platelet Count 395 k/uL (150-450); RBC 3.45 m/uL (3.80-5.40); RDW 15.1 % (11.5-15.5)
[2019-03-21 09:30] LABS: ALT 34 U/L (9-52); AST 52 U/L (14-36); African American GFR (CKD) >90 (>60 ml/min/1.73 sqM); Albumin 2.5 g/dL (3.5-5.0); Alkaline Phosphatase 69 U/L (38-126); Anion Gap 5 mmol/L; Blood Urea Nitrogen 7 mg/dL (7-17); Calcium 7.9 mg/dL (8.4-10.2); Carbon Dioxide 32 mmol/L (22-30); Chloride 97 mmol/L (98-107); Glucose 110 mg/dL (74-99); Non-African American GFR(CKD) >90 (>60 ml/min/1.73 sqM); Potassium 3.6 mmol/L (3.5-5.1); Sodium 134 mmol/L (137-145); Total Bilirubin 0.6 mg/dL (0.2-1.3); Total Protein 5.1 g/dL (6.3-8.2)
[2019-03-21] MEDS: SYMBICORT 160-4.5 MCG INHALER INHALATION SCH ×2 (10:21→19:04)
[2019-03-21] MEDS: IPRATROPIUM-ALBUTEROL 3 ML NEB INHALATION SCH ×4 (10:21→19:02)
[2019-03-21 20:47] VITALS: BP 109/71; PULSE 89; RESP 18; TEMP 97.2
--- NOTE | 2019-03-22 21:20 | P.DS ---
Providers Date of admission: 03/17/19 12:56 Expected date of discharge: 03/21/19 Attending physician: Adolfo Bay Primary care physician: Alexei Vera MD Hospital Course: Hospital course: This is a 63-year-old patient who follows with visiting physicians Dr. Vera. Patient has a rather extensive medical history. Normally uses a wheelchair or a walker to get about. Chronic stable medical conditions include, coronary artery disease, COPD in an ex-smoker, chronic fibromyalgia, GERD, hyperlipidemia, essential hypertension, osteoarthritis, hypothyroid, chronic multiple sclerosis, peripheral neuropathy lower extremity, chronic urinary incontinence. Patient at the end of January was here at the hospital was found to have a large abdominal mass invading surrounding structures and patient syndrome to [facility]. at [facility]-patient did have a EGD that showed gastric ulcer. nonbleeding. also. To have a gastric mass. That showed smooth muscle on biopsy.patient was due to follow up at [facility] report has got an appointment to follow-up with Dr. Dominique oncologist locally here. Patient also follows with Dr. Lees who she has seen before. Today-stable. Ranjeet to go home. tolerating her diet. patient does not want rehab. Discussed with enterprise resource planner. Discuss with Dr. Le , nursepractitioner.. Patient will follow with oncology and Dr. Lees outpatient. Discussion and discharge planning more than 35 minutes Physical examination: VITAL SIGNS: 97.2, 89, 18, 109/71, 97% on 3 L GENERAL: Laying in bed, comfortable EYES: Pupils equal. Conjunctiva normal. HEENT: External appearance of nose and ears normal, oral cavity grossly normal. NECK: JVD not raised; masses not palpable. HEART: First and second heart sounds are normal; no edema. LUNGS: Respiratory rate increased, decreased breath sounds. ABDOMEN: Soft, upper abdominal tenderness, no guarding or rigidity, liver spleen not palpable, no masses palpable. LYMPHATICS: No lymph nodes palpable in the axilla and neck. PSYCH: Alert and oriented x3; mood and affect normal. Investigations: hemoglobin 10.4 creatinine 0.46 From last admission: Abdominal ultrasound-possible cirrhosis, mildly thickened gallbladder wall, suspect gallstone, large complex mass temperature was centimeters in the mid abdomen Computed tomography scan abdomen-large partially cystic partially solid mass appears to rise from the great echo which was normal measuring 18 by then 0.7 x 1.2 cm. There is displacement of the stomach with luminal narrowing and ear obstruction. The mass appears to infiltrate into the adjacent duodenum. Assessment: -Normocytic anemia from GI. Likely to 2 gastric ulcer, as per recent EGD at [facility] -Aiiin-mwyqcwsiu-tjxaqauau mass, workup done at [facility].-biopsy showing small muscle mass, patient to follow-up with Dr. Pandya -Solitary gallstone, asymptomatic -Coronary artery disease -COPD in an ex-smoker -Chronic fibromyalgia -GERD -Hyperlipidemia -Essential hypertension -Primary osteoarthritis -Hypothyroid -Chronic multiple sclerosis -Peripheral neuropathy both the lower extremity -Chronic urinary incontinence -Chronic gait dysfunction uses a walker/wheelchair disposition: Home with family Patient Condition at Discharge: Undetermined Plan - Discharge Summary Discharge Rx Participant: No New Discharge Prescriptions: Continue Folic Acid 1 mg PO DAILY Aspirin EC [Ecotrin Low Dose] 81 mg PO DAILY Primidone [Mysoline] 50 mg PO BID Albuterol Nebulized [Ventolin Nebulized] 2.5 mg INHALATION RT-Q6H PRN PRN Reason: Shortness Of Breath Thiamine [Vitamin B-1] 100 mg PO DAILY oxyCODONE HCL/ACETAMINOPHEN [Oxycodone-Acetaminophen 5-325] 1 tab PO Q8H PRN PRN Reason: Pain ALPRAZolam [Xanax] 0.25 mg PO TID ARIPiprazole [Abilify] 10 mg PO DAILY Baclofen [Lioresal] 10 mg PO BID Cholecalciferol (Vitamin D3) [Vitamin D3] 2,000 unit PO DAILY Ferrous Sulfate [Iron (65 MG Elemental)] 325 mg PO BID Levothyroxine Sodium [Synthroid] 100 mcg PO DAILY Atorvastatin [Lipitor] 40 mg PO DAILY #30 tab Amiodarone [Cordarone] 200 mg PO DAILY Isosorbide Mononitrate ER [Imdur] 30 mg PO DAILY Cyanocobalamin (Vitamin B-12) [Vitamin B-12] 1,000 mcg PO DAILY Omeprazole 40 mg PO BID Albuterol Sulfate [Proair Hfa] 2 puff INHALATION RT-Q6H PRN PRN Reason: Shortness Of Breath Fluticasone/Salmeterol [Fluticasone-Salmeterol 113-14] 1 puff INHALATION RT- BID Discontinued Gabapentin [Neurontin] 300 mg PO TID Meclizine [Antivert] 25 mg PO QID Fluticasone Nasal [place] [Flonase Nasal [place]] 1 spr EA NOSTRIL DAILY PRN PRN Reason: Allergy Symptoms No Action Loperamide [Imodium] 2 mg PO DAILY PRN PRN Reason: Diarrhea Meclizine [Antivert] 25 mg PO QID PRN PRN Reason: Vertigo Gabapentin [Neurontin] 300 mg PO TID Discharge Medication List Folic Acid 1 mg PO DAILY 04/08/14 [History] Aspirin EC [Ecotrin Low Dose] 81 mg PO DAILY 09/23/14 [History] Primidone [Mysoline] 50 mg PO BID 04/12/15 [History] Albuterol Nebulized [Ventolin Nebulized] 2.5 mg INHALATION RT-Q6H PRN 04/13/15 [History] Thiamine [Vitamin B-1] 100 mg PO DAILY 04/13/15 [History] ALPRAZolam [Xanax] 0.25 mg PO TID 09/07/15 [History] oxyCODONE HCL/ACETAMINOPHEN [Oxycodone-Acetaminophen 5-325] 1 tab PO Q8H PRN 09/07/15 [History] ARIPiprazole [Abilify] 10 mg PO DAILY 03/11/17 [History] Baclofen [Lioresal] 10 mg PO BID 07/09/17 [History] Cholecalciferol (Vitamin D3) [Vitamin D3] 2,000 unit PO DAILY 09/27/18 [History] Ferrous Sulfate [Iron (65 MG Elemental)] 325 mg PO BID 09/27/18 [History] Levothyroxine Sodium [Synthroid] 100 mcg PO DAILY 09/27/18 [History] Atorvastatin [Lipitor] 40 mg PO DAILY #30 tab 09/28/18 [Rx] Amiodarone [Cordarone] 200 mg PO DAILY 02/06/19 [History] Isosorbide Mononitrate ER [Imdur] 30 mg PO DAILY 02/06/19 [History] Albuterol Sulfate [Proair Hfa] 2 puff INHALATION RT-Q6H PRN 03/16/19 [History] Cyanocobalamin (Vitamin B-12) [Vitamin B-12] 1,000 mcg PO DAILY 03/16/19 [History] Fluticasone/Salmeterol [Fluticasone-Salmeterol 113-14] 1 puff INHALATION RT-BID 03/16/19 [History] Omeprazole 40 mg PO BID 03/16/19 [History] Gabapentin [Neurontin] 300 mg PO TID 03/22/19 [History] Loperamide [Imodium] 2 mg PO DAILY PRN 03/22/19 [History] Meclizine [Antivert] 25 mg PO QID PRN 03/22/19 [History] Follow up Appointment(s)/Referral(s): Alexei Vera MD [Primary Care Provider] - 1-2 days (Dr. Vera's office will call with an appointment date and time.) Reid Egan MD [STAFF PHYSICIAN] - 04/17/19 3:00 pm [facility] Visiting Nurse, [NON-STAFF] - Patient Instructions/Handouts: Weakness (DC), Pneumonia (DC) Discharge Disposition: HOME SELF-CARE
== END 2019-03-21 20:30 | disposition home health service (06) | DRG 378 ==
LOC: EC 17:56 → 3NMEDONC 20:05 → 4SSUR 23:47 → 3SCARD 03-16 01:14 → OBSVTOIN 03-17 12:56 → 3NMEDONC 03-19 21:38
PROVIDERS: ADMIT Hospitalist; ATTEND Hospitalist
PROC: 30233N1 Transfusion of Nonautologous Red Blood Cells into Peripheral Vein, Percutaneous Approach (ICD-10-PCS; principal; 2019-03-17)
DX: K25.4 Chronic or unspecified gastric ulcer with hemorrhage (principal); J44.0 Chronic obstructive pulmonary disease with (acute) lower respiratory infection; J96.11 Chronic respiratory failure with hypoxia; I50.22 Chronic systolic (congestive) heart failure; J44.1 Chronic obstructive pulmonary disease with (acute) exacerbation; I95.9 Hypotension, unspecified; E03.9 Hypothyroidism, unspecified; E87.6 Hypokalemia; J20.9 Acute bronchitis, unspecified; G35 Multiple sclerosis; D63.8 Anemia in other chronic diseases classified elsewhere; E78.5 Hyperlipidemia, unspecified; E83.42 Hypomagnesemia; F31.9 Bipolar disorder, unspecified; F41.0 Panic disorder [episodic paroxysmal anxiety]; G62.9 Polyneuropathy, unspecified; I07.1 Rheumatic tricuspid insufficiency; I11.0 Hypertensive heart disease with heart failure; I25.10 Atherosclerotic heart disease of native coronary artery without angina pectoris; I25.2 Old myocardial infarction; I73.9 Peripheral vascular disease, unspecified; K21.9 Gastro-esophageal reflux disease without esophagitis; K80.20 Calculus of gallbladder without cholecystitis without obstruction; M19.91 Primary osteoarthritis, unspecified site; M41.9 Scoliosis, unspecified; M79.7 Fibromyalgia; R32 Unspecified urinary incontinence; Z79.02 Long term (current) use of antithrombotics/antiplatelets; Z79.82 Long term (current) use of aspirin; Z79.890 Hormone replacement therapy; Z79.899 Other long term (current) drug therapy; Z82.49 Family history of ischemic heart disease and other diseases of the circulatory system; Z86.74 Personal history of sudden cardiac arrest; Z87.01 Personal history of pneumonia (recurrent); Z87.11 Personal history of peptic ulcer disease; Z87.891 Personal history of nicotine dependence; Z95.5 Presence of coronary angioplasty implant and graft; Z95.810 Presence of automatic (implantable) cardiac defibrillator; Z99.81 Dependence on supplemental oxygen; Z66 Do not resuscitate
CPT/HCPCS: 36415; 71046; 80048; 80053; 82272; 82550; 82728; 83540; 83550; 83605; 83735; 83880; 84132; 84443; 84484; 85025; 85027; 85610; 85730; 86850; 86900; 86901; 86920; 87040; 87070; 87205; 87502; 93005; 94640; 94760; 96365; 96375; 99285

== ENCOUNTER 2019-03-22 13:08 | Observation (INO) | payer OTHER ==
[2019-03-22] MEDS ORDERED: SODIUM CHLORIDE 0.9% 1,000 ML IV STA (13:58)
[2019-03-22] MEDS ORDERED: IPRATROPIUM-ALBUTEROL 3 ML NEB INHALATION STA (13:58)
[2019-03-22] MEDS ORDERED: PANTOPRAZOLE 40 MG/10 ML VIAL IVP STA (13:59)
--- NOTE | 2019-03-22 14:02 | ED ---
General Adult HPI - General Chief complaint: Shortness of Breath Stated complaint: GI BLEED, WEAKNESS Time Seen by Provider: 03/22/19 13:17 Source: patient, EMS, RN notes reviewed Mode of arrival: EMS Limitations: no limitations - History of Present Illness Initial comments: Patient is a pleasant 63-year-old female presenting to the emergency Department with generalized weakness and reported rectal bleeding. Patient states she was in the hospital week ago with pneumonia. Patient states she feels more fatigued today. Patient does feel somewhat short of breath today however states that is mostly chronic. Patient states she was told that she had rectal bleeding. Patient states she does take iron pills. Patient is unclear how much blood was present. Patient states she feels weak and achy all over. Patient requests pain and nausea medicine. - Related Data Home Medications Medication Instructions Recorded Confirmed Folic Acid 1 mg PO DAILY 04/08/14 03/16/19 Aspirin EC [Ecotrin Low Dose] 81 mg PO DAILY 09/23/14 03/16/19 Primidone [Mysoline] 50 mg PO BID 04/12/15 03/16/19 Albuterol Nebulized [Ventolin 2.5 mg INHALATION RT-Q6H PRN 04/13/15 03/16/19 Nebulized] Thiamine [Vitamin B-1] 100 mg PO DAILY 04/13/15 03/16/19 ALPRAZolam [Xanax] 0.25 mg PO TID 09/07/15 03/16/19 oxyCODONE HCL/ACETAMINOPHEN 1 tab PO Q8H PRN 09/07/15 03/16/19 [Oxycodone-Acetaminophen 5-325] ARIPiprazole [Abilify] 10 mg PO DAILY 03/11/17 03/16/19 Baclofen [Lioresal] 10 mg PO BID 07/09/17 03/16/19 Cholecalciferol (Vitamin D3) 2,000 unit PO DAILY 09/27/18 03/16/19 [Vitamin D3] Ferrous Sulfate [Iron (65 MG 325 mg PO BID 09/27/18 03/16/19 Elemental)] Levothyroxine Sodium [Synthroid] 100 mcg PO DAILY 09/27/18 03/16/19 Amiodarone [Cordarone] 200 mg PO DAILY 02/06/19 03/16/19 Isosorbide Mononitrate ER [Imdur] 30 mg PO DAILY 02/06/19 03/16/19 Albuterol Sulfate [Proair Hfa] 2 puff INHALATION RT-Q6H PRN 03/16/19 03/16/19 Cyanocobalamin (Vitamin B-12) 1,000 mcg PO DAILY 03/16/19 03/16/19 [Vitamin B-12] Fluticasone/Salmeterol 1 puff INHALATION RT-BID 03/16/19 03/16/19 [Fluticasone-Salmeterol 113-14] Omeprazole 40 mg PO BID 03/16/19 03/16/19 Previous Rx's Medication Instructions Recorded Atorvastatin [Lipitor] 40 mg PO DAILY #30 tab 09/28/18 Gabapentin [Neurontin] 300 mg PO HS #0 03/21/19 Allergies Allergy/AdvReac Type Severity Reaction Status Date / Time Penicillins Allergy Swelling Verified 03/15/19 18:14 Review of Systems ROS Statement: Those systems with pertinent positive or pertinent negative responses have been documented in the HPI. ROS Other: All systems not noted in ROS Statement are negative. Constitutional: Denies: fever Eyes: Denies: eye pain ENT: Denies: ear pain Respiratory: Reports: as per HPI Cardiovascular: Denies: chest pain Endocrine: Reports: fatigue Gastrointestinal: Reports: as per HPI. Denies: abdominal pain Genitourinary: Denies: dysuria Musculoskeletal: Denies: back pain Skin: Denies: rash Neurological: Denies: weakness Past Medical History Past Medical History: Coronary Artery Disease (CAD), Chest Pain / Angina, Heart Failure, COPD, Eye Disorder, Fibromyalgia, GERD/Reflux, Hyperlipidemia, Hypertension, Myocardial Infarction (TN), Musculoskeletal Disorder, Neurologic Disorder, Osteoarthritis (OA), Pneumonia, Respiratory Disorder, Skin Disorder, Thyroid Disorder, Vascular Disorder Additional Past Medical History / Comment(s): 11/2012 [place] with cardiac arrest/vtach, chronic respiratory failure-uses home O2 prn 2-3L/NC, tracheobronchitis, tricuspid regurgitation, multiple sclerosis, neuropathy bilateral legs/feet, chronic back pain, DDD, migraines, bilateral carpal tunnel syndrome, past L/R rib fractures, past L hip fracture with surgery, PUD with ulcer rupture with surgery, peritonitis, pancreatitis, IBS/ ulcerative colitis, chronic anemia, UTIs, urinary incontinence, endometriosis, hypothyroid, R cataract and L eye cataract forming again, PVD, L leg cellulitis, Last Myocardial Infarction Date:: 2012 History of Any Multi-Drug Resistant Organisms: ESBL Date of last positivie culture/infection: 02/18/2014 MDRO Source:: Blood and Urine E. coli ESBL Past Surgical History: AICD, Appendectomy, Heart Catheterization, Heart Catheterization With Stent, Orthopedic Surgery, Pacemaker Additional Past Surgical History / Comment(s): Cardioversion, Laparotomy for ruptured gastric ulcer, R foot fracture with surgery, L hip fracture with surgery-has plate and screw, EGD, colonoscopies with bening polypectomy. Past Anesthesia/Blood Transfusion Reactions: No Reported Reaction Additional Past Anesthesia/Blood Transfusion Reaction / Comment(s): Pt has received blood in past without reaction. Date of Last Stent Placement:: 11/2012 Type of Cardiac Device: Permanent Pacemaker, AICD Device Placement Date:: 2012 Past Psychological History: Anxiety, Bipolar, Depression, Panic Disorder Smoking Status: Former smoker Past Alcohol Use History: None Reported Past Drug Use History: None Reported - Past Family History Mother Family Medical History: Musculoskeletal Disorder Additional Family Medical History / Comment(s): MS Sister(s) Family Medical History: Myocardial Infarction ([place]) Additional Family Medical History / Comment(s): SISTER ALSO HAS MS Brother(s) Family Medical History: Musculoskeletal Disorder, Neurologic Disorder Additional Family Medical History / Comment(s): MS Father Additional Family Medical History / Comment(s): ETOH abuse, back surgery General Exam Limitations: no limitations General appearance: alert Head exam: Present: normocephalic Eye exam: Present: other (Pale conjunctiva) ENT exam: Present: normal oropharynx Neck exam: Present: normal inspection Respiratory exam: Present: decreased breath sounds Cardiovascular Exam: Present: regular rate, normal rhythm GI/Abdominal exam: Present: soft. Absent: tenderness Extremities exam: Present: normal inspection Neurological exam: Present: alert. Absent: motor sensory deficit Psychiatric exam: Present: normal affect, normal mood Skin exam: Present: pallor Course Vital Signs 03/22/19 03/22/19 03/22/19 13:16 13:38 14:15 Pulse Rate 75 82 Respiratory 26 H 25 H Rate Blood Pressure 114/67 O2 Sat by Pulse 99 Oximetry 03/22/19 03/22/19 03/22/19 14:25 14:43 16:16 Pulse Rate 75 75 75 Respiratory 16 16 Rate Blood Pressure 101/61 93/57 O2 Sat by Pulse 97 98 Oximetry EKG Findings - EKG Comments: EKG Findings:: Normal sinus rhythm 85. UT and 38. QRS 92. QT 446. QTc 5:30. Normal axis. Low QRS voltage. Inferior Q waves. No acute ST change. Medical Decision Making - Medical Decision Making Case was discussed in detail with Dr. Bay who is very familiar with this patient. He will admit with social work consult and agreeable to 1 unit for transfusion. He is also made aware of x-ray findings. - Lab Data Result diagrams: 03/22/19 15:18 03/22/19 14:46 Lab Results 03/22/19 03/22/19 03/22/19 Range/Units 14:46 14:46 15:11 WBC (3.8-10.6) k/uL RBC (3.80-5.40) m/uL Hgb (11.4-16.0) gm/dL Hct (34.0-46.0) % MCV (80.0-100.0) fL MCH (25.0-35.0) pg MCHC (31.0-37.0) g/dL RDW (11.5-15.5) % Plt Count (150-450) k/uL Neutrophils % % Lymphocytes % % Monocytes % % Eosinophils % % Basophils % % Neutrophils # (1.3-7.7) k/uL Lymphocytes # (1.0-4.8) k/uL Monocytes # (0-1.0) k/uL Eosinophils # (0-0.7) k/uL Basophils # (0-0.2) k/uL Hypochromasia PT (9.0-12.0) sec INR (<1.2) APTT (22.0-30.0) sec Sodium 133 L (137-145) mmol/L Potassium 4.1 (3.5-5.1) mmol/L Chloride 93 L (98-107) mmol/L Carbon Dioxide 36 H (22-30) mmol/L Anion Gap 4 mmol/L BUN 9 (7-17) mg/dL Creatinine 0.53 (0.52-1.04) mg/dL Est GFR (CKD-EPI)AfAm >90 (>60 ml/min/1.73 sqM) Est GFR (CKD-EPI)NonAf >90 (>60 ml/min/1.73 sqM) Glucose 93 (74-99) mg/dL Calcium 7.9 L (8.4-10.2) mg/dL Total Bilirubin 0.7 (0.2-1.3) mg/dL AST 34 (14-36) U/L ALT 16 (4-34) U/L Alkaline Phosphatase 45 (38-126) U/L Total Protein 5.3 L (6.3-8.2) g/dL Albumin 2.5 L (3.5-5.0) g/dL Stool Occult Blood Positive H (Negative) Blood Type A Positive Blood Type Recheck A Pos Bld Type Recheck Status No Antibody Screen NEGATIVE Crossmatch See Detail Spec Expiration Date 03/25/2019 - 231003/22/19 03/22/19 Range/Units 15:18 15:18 WBC 10.2 (3.8-10.6) k/uL RBC 2.27 L (3.80-5.40) m/uL Hgb 6.9 L* D (11.4-16.0) gm/dL Hct 22.1 L (34.0-46.0) % MCV 97.4 (80.0-100.0) fL MCH 30.4 (25.0-35.0) pg MCHC 31.2 (31.0-37.0) g/dL RDW 15.1 (11.5-15.5) % Plt Count 285 (150-450) k/uL Neutrophils % 83 % Lymphocytes % 10 % Monocytes % 3 % Eosinophils % 2 % Basophils % 0 % Neutrophils # 8.5 H (1.3-7.7) k/uL Lymphocytes # 1.0 (1.0-4.8) k/uL Monocytes # 0.4 (0-1.0) k/uL Eosinophils # 0.2 (0-0.7) k/uL Basophils # 0.0 (0-0.2) k/uL Hypochromasia Marked PT 14.3 H (9.0-12.0) sec INR 1.4 H (<1.2) APTT 28.0 (22.0-30.0) sec Sodium (137-145) mmol/L Potassium (3.5-5.1) mmol/L Chloride (98-107) mmol/L Carbon Dioxide (22-30) mmol/L Anion Gap mmol/L BUN (7-17) mg/dL Creatinine (0.52-1.04) mg/dL Est GFR (CKD-EPI)AfAm (>60 ml/min/1.73 sqM) Est GFR (CKD-EPI)NonAf (>60 ml/min/1.73 sqM) Glucose (74-99) mg/dL Calcium (8.4-10.2) mg/dL Total Bilirubin (0.2-1.3) mg/dL AST (14-36) U/L ALT (4-34) U/L Alkaline Phosphatase (38-126) U/L Total Protein (6.3-8.2) g/dL Albumin (3.5-5.0) g/dL Stool Occult Blood (Negative) Blood Type Blood Type Recheck Bld Type Recheck Status Antibody Screen Crossmatch Spec Expiration Date - Radiology Data Radiology results: image reviewed (Chest x-ray shows new trace right effusion and small associated airspace disease. May represent atelectasis or pneumonia. Extensive underlying COPD.) Disposition Clinical Impression: GI hemorrhage Disposition: ADMITTED IP TO THIS [facility] Condition: Serious Is patient prescribed a controlled substance at d/c from ED?: No Referrals: Alexei Vera MD [Primary Care Provider] - 1-2 days Decision Time: 16:19
--- NOTE | 2019-03-22 14:28 | XR ---
EXAMINATION TYPE: XR chest 2V DATE OF EXAM: 03/22/2019 COMPARISON: 03/16/2019 HISTORY: Difficulty breathing TECHNIQUE: Frontal and lateral views of the chest are obtained. FINDINGS: New small right pleural effusion and associated right basilar airspace disease is seen. Th ere is patient rotation to the right with narrowing of the right hemithorax. Cardiomediastinal silhou ette is upper limits of normal and stable. Pulmonary hyperinflation and increased retrosternal airspa ce correlates with underlying COPD. Diffuse osseous demineralization. The cardiac silhouette size is within normal limits. There is a high riding right humeral head new from the prior. The osseous str uctures are intact. IMPRESSION: New trace right pleural effusion and small area of associated airspace disease. This may represent atelectasis or pneumonia. Extensive underlying COPD.
[2019-03-22 15:04] LABS: ALT 16 U/L (4-34); AST 34 U/L (14-36); African American GFR (CKD) >90 (>60 ml/min/1.73 sqM); Albumin 2.5 g/dL (3.5-5.0); Alkaline Phosphatase 45 U/L (38-126); Anion Gap 4 mmol/L; Blood Urea Nitrogen 9 mg/dL (7-17); Calcium 7.9 mg/dL (8.4-10.2); Carbon Dioxide 36 mmol/L (22-30); Chloride 93 mmol/L (98-107); Glucose 93 mg/dL (74-99); Non-African American GFR(CKD) >90 (>60 ml/min/1.73 sqM); Potassium 4.1 mmol/L (3.5-5.1); Sodium 133 mmol/L (137-145); Total Bilirubin 0.7 mg/dL (0.2-1.3); Total Protein 5.3 g/dL (6.3-8.2)
[2019-03-22 15:30] LABS: Basophils % (A) 0 %; Eosinophils # (A) 0.2 k/uL (0-0.7); Eosinophils % (A) 2 %; HCT 22.1 % (34.0-46.0); Hypochromasia Marked; Lymphocytes % (A) 10 %; MCH 30.4 pg (25.0-35.0); MCHC 31.2 g/dL (31.0-37.0); MCV 97.4 fL (80.0-100.0); Mean Platelet Volume 7.5; Monocytes # (A) 0.4 k/uL (0-1.0); Monocytes % (A) 3 %; Neutrophils # (A) 8.5 k/uL (1.3-7.7); Neutrophils % (A) 83 %; Platelet Count 285 k/uL (150-450); RBC 2.27 m/uL (3.80-5.40); RDW 15.1 % (11.5-15.5); WBC 10.2 k/uL (3.8-10.6)
[2019-03-22 15:38] LABS: INR 1.4 (<1.2); Prothrombin Time 14.3 sec (9.0-12.0)
[2019-03-22 15:45] LABS: HGB 6.9 gm/dL (11.4-16.0)
[2019-03-22] MEDS ORDERED: NALOXONE 0.4 MG/ML 1 ML VIAL IV PRN (16:19)
[2019-03-22] MEDS ORDERED: MECLIZINE 25 MG TAB PO PRN (18:56)
[2019-03-22] MEDS ORDERED: ALBUTEROL INHALER 60 PUFF/8 GM INHALER INHALATION PRN (18:56)
[2019-03-22] MEDS: FERROUS SULFATE 325 MG TAB PO SCH (19:35)
[2019-03-22] MEDS: PRIMIDONE 50 MG TAB PO SCH (19:36)
[2019-03-22] MEDS: ALPRAZolam 0.25 MG TAB PO SCH (19:36)
[2019-03-22] MEDS: BACLOFEN 10 MG TAB PO SCH (19:36)
[2019-03-22] MEDS: oxyCODONE-APAP 5-325MG 1 EACH TAB PO PRN (19:36)
[2019-03-22] MEDS: GABAPENTIN 300 MG CAP PO SCH (19:36)
[2019-03-22] MEDS: SODIUM CHLORIDE 0.9% 1,000 ML IV SCH (19:37)
[2019-03-22] MEDS: SYMBICORT 160-4.5 MCG INHALER INHALATION SCH (19:53)
[2019-03-22 22:51] LABS: Anisocytosis Slight; Basophils % (A) 0 %; Eosinophils # (A) 0.4 k/uL (0-0.7); Eosinophils % (A) 5 %; HCT 24.7 % (34.0-46.0); Hypochromasia Slight; Lymphocytes # (A) 1.2 k/uL (1.0-4.8); Lymphocytes % (A) 16 %; MCH 30.7 pg (25.0-35.0); MCHC 33.8 g/dL (31.0-37.0); Mean Platelet Volume 7.5; Monocytes # (A) 0.3 k/uL (0-1.0); Monocytes % (A) 4 %; Neutrophils # (A) 5.5 k/uL (1.3-7.7); Neutrophils % (A) 74 %; Platelet Count 279 k/uL (150-450); Poikilocytosis Moderate; RBC 2.73 m/uL (3.80-5.40); RDW 16.8 % (11.5-15.5); WBC 7.4 k/uL (3.8-10.6)
[2019-03-22 22:52] LABS: HGB 8.4 gm/dL (11.4-16.0); MCV 90.7 fL (80.0-100.0)
[2019-03-23] MEDS: SODIUM CHLORIDE 0.9% 1,000 ML IV SCH ×3 (02:04→15:29)
[2019-03-23] MEDS: oxyCODONE-APAP 5-325MG 1 EACH TAB PO PRN ×3 (05:03→23:44)
[2019-03-23] MEDS: LEVOTHYROXINE 100 MCG TAB PO SCH (05:03)
[2019-03-23 05:18] LABS: Anisocytosis Slight; Basophils % (A) 0 %; Eosinophils # (A) 0.4 k/uL (0-0.7); Eosinophils % (A) 6 %; HCT 26.5 % (34.0-46.0); HGB 8.6 gm/dL (11.4-16.0); Hypochromasia Moderate; Lymphocytes # (A) 1.3 k/uL (1.0-4.8); Lymphocytes % (A) 20 %; MCH 30.1 pg (25.0-35.0); MCHC 32.3 g/dL (31.0-37.0); MCV 92.9 fL (80.0-100.0); Mean Platelet Volume 7.5; Monocytes # (A) 0.3 k/uL (0-1.0); Monocytes % (A) 4 %; Neutrophils # (A) 4.8 k/uL (1.3-7.7); Neutrophils % (A) 69 %; Platelet Count 270 k/uL (150-450); Poikilocytosis Moderate; RBC 2.85 m/uL (3.80-5.40); RDW 16.9 % (11.5-15.5); WBC 6.9 k/uL (3.8-10.6)
[2019-03-23 05:37] LABS: African American GFR (CKD) >90 (>60 ml/min/1.73 sqM); Anion Gap 1 mmol/L; Blood Urea Nitrogen 7 mg/dL (7-17); Calcium 7.5 mg/dL (8.4-10.2); Carbon Dioxide 34 mmol/L (22-30); Chloride 98 mmol/L (98-107); Glucose 66 mg/dL (74-99); Non-African American GFR(CKD) >90 (>60 ml/min/1.73 sqM); Potassium 3.5 mmol/L (3.5-5.1); Sodium 133 mmol/L (137-145)
[2019-03-23] MEDS: FERROUS SULFATE 325 MG TAB PO SCH ×2 (08:29→20:22)
[2019-03-23] MEDS: AMIODARONE 200 MG TAB PO SCH (08:29)
[2019-03-23] MEDS: THIAMINE 100 MG TAB PO SCH (08:29)
[2019-03-23] MEDS: ISOSORBIDE MONONITRATE ER 30 MG TAB.ER.24H PO SCH (08:29)
[2019-03-23] MEDS: PANTOPRAZOLE 40 MG/10 ML VIAL IV SCH (08:29)
[2019-03-23] MEDS: GABAPENTIN 300 MG CAP PO SCH ×3 (08:29→20:22)
[2019-03-23] MEDS: ARIPiprazole 10 MG TAB PO SCH (08:29)
[2019-03-23] MEDS: CYANOCOBALAMIN 500 MCG TAB PO SCH (08:29)
[2019-03-23] MEDS: FOLIC ACID 1 MG TAB PO SCH (08:29)
[2019-03-23] MEDS: ALPRAZolam 0.25 MG TAB PO SCH ×3 (08:29→20:22)
[2019-03-23] MEDS: BACLOFEN 10 MG TAB PO SCH ×2 (08:29→20:22)
[2019-03-23] MEDS: PRIMIDONE 50 MG TAB PO SCH ×2 (08:29→20:22)
[2019-03-23] MEDS: CHOLECALCIFEROL 1,000 UNIT TAB PO SCH (08:29)
[2019-03-23] MEDS: ATORVASTATIN 40 MG TAB PO SCH (08:29)
[2019-03-23] MEDS: SYMBICORT 160-4.5 MCG INHALER INHALATION SCH ×2 (08:50→20:42)
[2019-03-23] MEDS: ALBUTEROL NEBULIZED 2.5 MG/3 ML INHALATION PRN ×2 (15:36→20:39)
[2019-03-23 19:02] LABS: Glucose,Whole Blood 60 mg/dL (75-99)
[2019-03-23 19:18] LABS: Glucose,Whole Blood 74 mg/dL (75-99)
--- NOTE | 2019-03-23 20:16 | P.HPIM ---
History of Present Illness H&P Date: 03/23/19 Chief Complaint: bleeding per rectum history of presenting complaint: This is a 63-year-old patient who follows with visiting physicians Dr. Vera. patient was just discharged on March 21from the hospital following a diagnosis of pneumonia. Patient has a rather extensive medical history. Normally uses a wheelchair or a walker to get about. Chronic stable medical con ditions include, coronary artery disease, COPD in an ex-smoker, chronic fibromyalgia, GERD, hyperlipidemia, essential hypertension, osteoarthritis, hypothyroid, chronic multiple sclerosis, peripheral neuropathy lower extremity, chronic urinary incontinence. Patient at the end of January was here at the hospital was found to have a large abdominal mass invading surrounding structures and patient transferred to [facility]. at [facility]- patient did have a EGD that showed gastric ulcer. nonbleeding. also. To have a gastric mass. That showed smooth muscle on biopsy.patient was due to follow up at [facility] report has got an appointment to follow-up with Dr. Dominique oncologist locally here. Patient also follows with Dr. Lees who she has seen before. at home Started feeling weak tired rundown. Also had some dark stools. Unclear if it was fresh blood.. Admitted for the same.no abdominal pain. No nausea vomiting. Review of systems: GEN.: [weak and tired] EYES: [None] HEENT: [None] NECK: [None] RESPIRATORY: [None] CARDIOVASCULAR: [None] GASTROINTESTINAL: [as above GENITOURINARY: [None] MUSCULOSKELETAL: [joint pain] LYMPHATICS: [None] HEMATOLOGICAL: [None] PSYCHIATRY: [None] NEUROLOGICAL: [does use a wheelchair or a walker Social history:] lives alone. Has a friend Alvarado who spends most of the day with her. uses walker and/or wheelchair history of alcohol abuse last drink over 20 years ago. Also smoked a pack a day for close to 40 years up until very recently. Physical examination: VITAL SIGNS: 97.3, 81, 18, 125/70, 92% on 3 L GENERAL: Laying in bed, comfortable EYES: Pupils equal. Conjunctiva pale HEENT: External appearance of nose and ears normal, oral cavity grossly normal. NECK: JVD not raised; masses not palpable. HEART: First and second heart sounds are normal; no edema. LUNGS: Respiratory rate increased, decreased breath sounds. ABDOMEN: Soft, upper abdominal tenderness, no guarding or rigidity, liver spleen not palpable, no masses palpable. LYMPHATICS: No lymph nodes palpable in the axilla and neck. PSYCH: Alert and oriented x3; mood and affect normal. Investigations: potassium 4.1 creatinine 0.53hemoglobin 6.9 platelets 285 Hemoglobin was 10.4 on 03/21/2019 previous testing: Abdominal ultrasound-possible cirrhosis, mildly thickened gallbladder wall, suspect gallstone, large complex mass temperature was centimeters in the mid abdomen Computed tomography scan abdomen-large partially cystic partially solid mass appears to rise from the great echo which was normal measuring 18 by then 0.7 x 1.2 cm. There is displacement of the stomach with luminal narrowing and ear obstruction. The mass appears to infiltrate into the adjacent duodenum. Assessment: -acute GI bleed causing blood loss anemia with recent EGD at [facility] showing gastric ulcer -Tmjqk-jcblvzgyr-xfqmfaxh mass, workup done at [facility].-biopsy showing smoothl muscle mass, due to follow-up with Dr. Pandya -Solitary gallstone, asymptomatic -Coronary artery disease -COPD in an ex-smoker -Chronic fibromyalgia -GERD -Hyperlipidemia -Essential hypertension -Primary osteoarthritis -Hypothyroid -Chronic multiple sclerosis -Peripheral neuropathy both the lower extremity -Chronic urinary incontinence -Chronic gait dysfunction uses a walker/wheelchair plan: Patient was transfused 2 units of blood. GI was consulted. H&H will be followed. Oral prognosis is guarded. Patient recently did have her EGD showing gastric ulcer.aspirin be held. Continue with PPI. Care was discussed with the patient. Follow H&H Past Medical History Past Medical History: Coronary Artery Disease (CAD), Chest Pain / Angina, Heart Failure, COPD, Eye Disorder, Fibromyalgia, GERD/Reflux, Hyperlipidemia, Hypertension, Myocardial Infarction ([place]), Musculoskeletal Disorder, Neurologic Disorder, Osteoarthritis (OA), Pneumonia, Respiratory Disorder, Skin Disorder, Thyroid Disorder, Vascular Disorder Additional Past Medical History / Comment(s): 11/2012 [place] with cardiac arrest/vtach, chronic respiratory failure-uses home O2 prn 2-3L/NC, tracheobronchitis, tricuspid regurgitation, multiple sclerosis, neuropathy bilateral legs/feet, chronic back pain, DDD, migraines, bilateral carpal tunnel syndrome, past L/R rib fractures, past L hip fracture with surgery, PUD with ulcer rupture with surgery, peritonitis, pancreatitis, IBS/ ulcerative colitis, chronic anemia, UTIs, urinary incontinence, endometriosis, hypothyroid, R cataract and L eye cataract forming again, PVD, L leg cellulitis, Last Myocardial Infarction Date:: 2012 History of Any Multi-Drug Resistant Organisms: ESBL Date of last positivie culture/infection: 02/18/2014 MDRO Source:: Blood and Urine E. coli ESBL Past Surgical History: AICD, Appendectomy, Heart Catheterization, Heart Catheterization With Stent, Orthopedic Surgery, Pacemaker Additional Past Surgical History / Comment(s): Cardioversion, Laparotomy for ruptured gastric ulcer, R foot fracture with surgery, L hip fracture with surgery-has plate and screw, EGD, colonoscopies with bening polypectomy. Past Anesthesia/Blood Transfusion Reactions: No Reported Reaction Additional Past Anesthesia/Blood Transfusion Reaction / Comment(s): Pt has received blood in past without reaction. Date of Last Stent Placement:: 11/2012 Type of Cardiac Device: Permanent Pacemaker, AICD Device Placement Date:: 2012 Past Psychological History: Anxiety, Bipolar, Depression, Panic Disorder Additional Psychological History / Comment(s): pt. wouldn't stated she does'nt know how she ended up with a legal guardian shweta cooper.pt stated she lives at [facility] -has help come in to do cleaning,cooking,bathing. Smoking Status: Former smoker Past Alcohol Use History: None Reported Additional Past Alcohol Use History / Comment(s): hx. alcohol abuse-last drank 12 yrs. ago patient is a smoker one pack per day for 40 years and quit 15 days ago. She has history of marijuana use in the past but none at this time. She also has history of alcohol abuse but quit 12 years ago. She is currently living on her own and has home care and assistance and plan to return there at the time of discharge. Past Drug Use History: None Reported - Past Family History Mother Family Medical History: Musculoskeletal Disorder Additional Family Medical History / Comment(s): MS Sister(s) Family Medical History: Myocardial Infarction ([place]) Additional Family Medical History / Comment(s): SISTER ALSO HAS MS Brother(s) Family Medical History: Musculoskeletal Disorder, Neurologic Disorder Additional Family Medical History / Comment(s): MS Father Additional Family Medical History / Comment(s): ETOH abuse, back surgery Medications and Allergies Home Medications Medication Instructions Recorded Confirmed Type RX: Folic Acid 1 mg PO DAILY 04/08/14 03/22/19 History RX: Aspirin EC [Ecotrin Low Dose] 81 mg PO DAILY 09/23/14 03/22/19 History RX: Primidone [Mysoline] 50 mg PO BID 04/12/15 03/22/19 History RX: Albuterol Nebulized [Ventolin 2.5 mg INHALATION RT-Q6H PRN 04/13/15 03/22/19 History Nebulized] RX: Thiamine [Vitamin B-1] 100 mg PO DAILY 04/13/15 03/22/19 History RX: ALPRAZolam [Xanax] 0.25 mg PO TID 09/07/15 03/22/19 History RX: oxyCODONE HCL/ACETAMINOPHEN 1 tab PO Q8H PRN 09/07/15 03/22/19 History [Oxycodone-Acetaminophen 5-325] RX: ARIPiprazole [Abilify] 10 mg PO DAILY 03/11/17 03/22/19 History RX: Baclofen [Lioresal] 10 mg PO BID 07/09/17 03/22/19 History RX: Cholecalciferol (Vitamin D3) 2,000 unit PO DAILY 09/27/18 03/22/19 History [Vitamin D3] RX: Ferrous Sulfate [Iron (65 MG 325 mg PO BID 09/27/18 03/22/19 History Elemental)] RX: Levothyroxine Sodium 100 mcg PO DAILY 09/27/18 03/22/19 History [Synthroid] RX: Atorvastatin [Lipitor] 40 mg PO DAILY #30 tab 09/28/18 03/22/19 Rx RX: Amiodarone [Cordarone] 200 mg PO DAILY 02/06/19 03/22/19 History RX: Isosorbide Mononitrate ER 30 mg PO DAILY 02/06/19 03/22/19 History [Imdur] RX: Albuterol Sulfate [Proair Hfa] 2 puff INHALATION RT-Q6H PRN 03/16/19 03/22/19 History RX: Cyanocobalamin (Vitamin B-12) 1,000 mcg PO DAILY 03/16/19 03/22/19 History [Vitamin B-12] RX: Fluticasone/Salmeterol 1 puff INHALATION RT-BID 03/16/19 03/22/19 History [Fluticasone-Salmeterol 113-14] RX: Omeprazole 40 mg PO BID 03/16/19 03/22/19 History Loperamide [Imodium] 2 mg PO DAILY PRN 03/22/19 03/22/19 History Meclizine [Antivert] 25 mg PO QID PRN 03/22/19 03/22/19 History RX: Gabapentin [Neurontin] 300 mg PO TID 03/22/19 03/22/19 History Allergies Allergy/AdvReac Type Severity Reaction Status Date / Time Penicillins Allergy Swelling Verified 03/22/19 17:24 Physical Exam Vitals: Vital Signs Temp Pulse Pulse Resp BP BP Pulse Ox 03/23/19 08:36 97.3 F L 81 18 125/70 92 L 03/23/19 04:00 98.6 F 71 18 106/65 97 03/23/19 00:00 98.2 F 70 19 99/65 99 03/22/19 21:10 98.4 F 73 20 96/63 98 03/22/19 20:00 80 20 03/22/19 19:24 98 F 73 18 105/69 98 03/22/19 18:54 98.2 F 75 18 108/67 96 03/22/19 18:44 98.4 F 79 18 103/68 97 03/22/19 18:18 97.7 F 80 18 114/67 95 03/22/19 17:00 74 16 114/57 96 03/22/19 16:16 75 16 93/57 98 03/22/19 16:00 76 16 94/60 96 03/22/19 15:00 79 21 101/61 03/22/19 14:43 75 16 101/61 97 03/22/19 14:25 75 03/22/19 14:15 82 03/22/19 14:00 86 29 H 114/67 95 03/22/19 13:40 82 25 H 03/22/19 13:38 75 25 H 114/67 99 03/22/19 13:16 26 H Intake and Output 03/22/19 03/23/19 03/23/19 22:59 06:59 14:59 Intake Total 207 450 6922 Balance 076 377 6062 Intake: Intake, IV Titration 721 011 6673 Amount Sodium Chloride 0.9% 1, 200 500 000 ml @ 100 mls/hr IV . Q10H [facility] Rx#:[id number] Sodium Chloride 0.9% 1, 240 1440 000 ml @ 120 mls/hr IV . Q8H20M [facility] Rx#:[id number] Blood Product 310 Rc As-1 Unit 310 [id number] Other: # Voids 1 3 2 Weight 58.967 kg 62 kg Results CBC & Chem 7: 03/23/19 05:07 03/23/19 05:07 Labs: Abnormal Lab Results - Last 24 Hours (Table) 03/22/19 03/22/19 03/22/19 Range/Units 14:46 14:46 15:11 RBC (3.80-5.40) m/uL Hgb (11.4-16.0) gm/dL Hct (34.0-46.0) % RDW (11.5-15.5) % Neutrophils # (1.3-7.7) k/uL PT (9.0-12.0) sec INR (<1.2) Sodium 133 L (137-145) mmol/L Chloride 93 L (98-107) mmol/L Carbon Dioxide 36 H (22-30) mmol/L Creatinine (0.52-1.04) mg/dL Glucose (74-99) mg/dL Calcium 7.9 L (8.4-10.2) mg/dL Total Protein 5.3 L (6.3-8.2) g/dL Albumin 2.5 L (3.5-5.0) g/dL Stool Occult Blood Positive H (Negative) Crossmatch See Detail 03/22/19 03/22/19 03/22/19 Range/Units 15:18 15:18 22:38 RBC 2.27 L 2.73 L (3.80-5.40) m/uL Hgb 6.9 L* D 8.4 L D (11.4-16.0) gm/dL Hct 22.1 L 24.7 L (34.0-46.0) % RDW 16.8 H (11.5-15.5) % Neutrophils # 8.5 H (1.3-7.7) k/uL PT 14.3 H (9.0-12.0) sec INR 1.4 H (<1.2) Sodium (137-145) mmol/L Chloride (98-107) mmol/L Carbon Dioxide (22-30) mmol/L Creatinine (0.52-1.04) mg/dL Glucose (74-99) mg/dL Calcium (8.4-10.2) mg/dL Total Protein (6.3-8.2) g/dL Albumin (3.5-5.0) g/dL Stool Occult Blood (Negative) Crossmatch 03/23/19 03/23/19 Range/Units 05:07 05:07 RBC 2.85 L (3.80-5.40) m/uL Hgb 8.6 L (11.4-16.0) gm/dL Hct 26.5 L (34.0-46.0) % RDW 16.9 H (11.5-15.5) % Neutrophils # (1.3-7.7) k/uL PT (9.0-12.0) sec INR (<1.2) Sodium 133 L (137-145) mmol/L Chloride (98-107) mmol/L Carbon Dioxide 34 H (22-30) mmol/L Creatinine 0.48 L (0.52-1.04) mg/dL Glucose 66 L (74-99) mg/dL Calcium 7.5 L (8.4-10.2) mg/dL Total Protein (6.3-8.2) g/dL Albumin (3.5-5.0) g/dL Stool Occult Blood (Negative) Crossmatch Thrombosis Risk Factor Assmnt - Choose All That Apply Any of the Below Risk Factors Present?: Yes Each Factor Represents 1 point: Abnormal pulmonary function (COPD), Medical pt on bed rest, Swollen legs (current) Each Risk Factor Represents 2 Points: Age 61-74 years Other congenital or acquired thrombophilia - If yes, enter type in comment: No Thrombosis Risk Factor Assessment Total Risk Factor Score: 5 Thrombosis Risk Factor Assessment Level: High Risk
[2019-03-24 00:06] LABS: Glucose,Whole Blood 85 mg/dL (75-99)
[2019-03-24] MEDS: SODIUM CHLORIDE 0.9% 1,000 ML IV SCH ×2 (01:16→07:51)
[2019-03-24] MEDS: LEVOTHYROXINE 100 MCG TAB PO SCH (06:01)
[2019-03-24 06:05] LABS: Glucose,Whole Blood 63 mg/dL (75-99)
[2019-03-24 06:28] LABS: Glucose,Whole Blood 95 mg/dL (75-99)
[2019-03-24] MEDS: PANTOPRAZOLE 40 MG/10 ML VIAL IV SCH (07:44)
[2019-03-24] MEDS: BACLOFEN 10 MG TAB PO SCH ×2 (07:45→20:58)
[2019-03-24] MEDS: ALPRAZolam 0.25 MG TAB PO SCH ×3 (07:45→20:57)
[2019-03-24] MEDS: PRIMIDONE 50 MG TAB PO SCH ×2 (07:45→21:10)
[2019-03-24] MEDS: GABAPENTIN 300 MG CAP PO SCH ×3 (07:45→20:58)
[2019-03-24] MEDS: CHOLECALCIFEROL 1,000 UNIT TAB PO SCH (07:45)
[2019-03-24] MEDS: AMIODARONE 200 MG TAB PO SCH (07:45)
[2019-03-24] MEDS: FERROUS SULFATE 325 MG TAB PO SCH ×2 (07:45→20:58)
[2019-03-24] MEDS: CYANOCOBALAMIN 500 MCG TAB PO SCH (07:45)
[2019-03-24] MEDS: FOLIC ACID 1 MG TAB PO SCH (07:45)
[2019-03-24] MEDS: ISOSORBIDE MONONITRATE ER 30 MG TAB.ER.24H PO SCH (07:45)
[2019-03-24] MEDS: ARIPiprazole 10 MG TAB PO SCH (07:45)
[2019-03-24] MEDS: oxyCODONE-APAP 5-325MG 1 EACH TAB PO PRN ×3 (07:46→21:01)
[2019-03-24] MEDS: THIAMINE 100 MG TAB PO SCH (07:46)
[2019-03-24] MEDS: ATORVASTATIN 40 MG TAB PO SCH (07:46)
[2019-03-24] MEDS: SYMBICORT 160-4.5 MCG INHALER INHALATION SCH ×2 (08:19→19:40)
[2019-03-24] MEDS: ALBUTEROL NEBULIZED 2.5 MG/3 ML INHALATION PRN ×3 (08:19→19:40)
--- NOTE | 2019-03-24 10:07 | CONS ---
CONSULTATION DATE OF DICTATION: March 24, 2019. REQUESTING PHYSICIAN: Dr. Alexei Vera REASON FOR CONSULTATION: GI bleed. HISTORY OF PRESENT ILLNESS: The patient is a 63-year-old pleasant white female who was recently discharged from the hospital because of pneumonia about 3 days ago. She came to the hospital yesterday complaining of black tarry stools that happened yesterday morning. She had 2 episodes. She got concerned, came back to the emergency room and subsequently admitted to the hospital for further evaluation. On review of records, the patient states that she was admitted to the hospital on January [address] of the abdomen and pelvis done at that time showed a 14 x 12 cm mass involving the greater curvature of the stomach extending onto the duodenum. She was evaluated by Dr. Taylor and transferred to [facility] for further management. The patient states that she had an upper endoscopy done and was told she has a gastric mass. Subsequently she was supposed to be seen by a surgical oncologist last week, but she was in the hospital for pneumonia and hence could not make it. In the meantime, she has an appointment to see Dr. Egan next week. She denies any abdominal pain since being in the hospital. No further episodes of abdominal pain, nausea, vomiting. She denies any recent NSAID use. PAST MEDICAL HISTORY: Significant for hypertension, hypothyroidism, anxiety, peripheral neuropathy, hypercholesteremia, anxiety and depression. MEDICATIONS: At home Xanax, Abilify, ProAir, Cordarone, Ecotrin, Lipitor, Lioresal, vitamin D3, Imdur, Synthroid, omeprazole, Mysoline, Antivert, Imodium, Neurontin, vitamin B1, Flonase, folic acid, albuterol. ALLERGIES: PENICILLIN. SOCIAL HISTORY: No smoking. No alcohol use. FAMILY HISTORY: Unremarkable. REVIEW OF SYSTEMS: Cardiopulmonary: She denies any chest pain, shortness of breath. Genitourinary: No dysuria or hematuria. MUSCULOSKELETAL unremarkable. SKIN unremarkable. ENDOCRINE unremarkable. Psychiatric unremarkable. ENT/vision unremarkable. CONSTITUTIONAL: No recent weight loss. No fever, chills, night sweats. PAST SURGICAL HISTORY: Cardiac catheterization, AICD implantation, appendectomy, cardiac catheterization with stent placement, pacemaker implantation, prior history of laparotomy for ruptured gastric ulcer, left hip fracture surgery, EGD and colonoscopy in the past. PHYSICAL EXAMINATION: On physical examination, she appears comfortable. No apparent distress. Vital signs are stable. Blood pressure 98/63, pulse is 70, temperature 98.4. HEENT examination unremarkable. Conjunctivae pink. Sclerae anicteric. Oral cavity no lesions. NECK: No JVD or lymph node enlargement. CHEST: The chest was clear to auscultation. CARDIOVASCULAR: Heart regular rate and rhythm. Abdomen is soft. Bowel sounds are positive. No organomegaly. Rest of the abdomen was benign. EXTREMITIES no pedal edema. SKIN no rashes. NEURO alert and oriented x3. No focal deficits. LABS: WBC 6.9, hemoglobin 8.6, platelets normal. Basic metabolic panel is within normal limits. BUN is 7, creatinine 0.48. Stool Hemoccult was positive. IMPRESSION: 1. This is a lady who presents to the hospital with black tarry stools that happened yesterday morning. She had 2 episodes, came to the emergency room. Hemoglobin was 8.5 and today repeat hemoglobin remains stable. No further episodes of bleeding. Remains hemodynamically stable. 2. Large abdominal mass measuring 18 x 10 cm noted on the CT scan on February 07, 2019, arising from the greater curvature of the stomach, displacing the stomach and duodenum suspicious for GIST. The patient was transferred to [facility]. According to her, she had an upper endoscopy with biopsies and was told has a gastric mass and was supposed to see a surgical oncology team last week. However, she was in the hospital for pneumonia and did not make it. She has an appointment to see Dr. Egan next week. No surgical intervention was done so far. Most likely, the bleeding could be happening from the ulcerated mass. RECOMMENDATIONS: 1. Continue PPIs. Continue with Protonix 40 mg twice daily. 2. We will start her on regular diet. 3. Request all the records from [facility]. 4. We will not plan on any endoscopy intervention at the present time. 5. Oncology consultation. 6. We will follow with you closely during hospital stay. Thank you for this consultation. MMODL / IJN: [id number] /
--- NOTE | 2019-03-24 16:08 | P.PN ---
Progress Note - Text Progress Note Date: 03/24/19 Chief Complaint: bleeding per rectum history of presenting complaint: This is a 63-year-old patient who follows with visiting physicians Dr. Vera. patient was just discharged on March 21from the hospital following a diagnosis of pneumonia. Patient has a rather extensive medical history. Normally uses a wheelchair or a walker to get about. Chronic stable medical conditions include, coronary artery disease, COPD in an ex-smoker, chronic fibromyalgia, GERD, hyperlipidemia, essential hypertension, osteoarthritis, hypothyroid, chronic multiple sclerosis, peripheral neuropathy lower extremity, chronic urinary incontinence. Patient at the end of January was here at the hospital was found to have a large abdominal mass invading surrounding structures and patient transferred to [facility]. at [facility]- patient did have a EGD that showed gastric ulcer. nonbleeding. also. To have a gastric mass. That showed smooth muscle on biopsy.patient was due to follow up at [facility] report has got an appointment to follow-up with Dr. Dominique oncologist locally here. Patient also follows with Dr. Lees who she has seen before. admitted with dark stools. GI was consulted. 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 Review of systems: Was done for constitutional, cardiovascular, GI, pulmonary. relevant finding as above Active Medications Albuterol Sulfate (Ventolin Nebulized) 2.5 mg INHALATION RT-Q6H PRN PRN Reason: Shortness Of Breath Last Admin: 03/24/19 15:42 Dose: 2.5 mg Documented by: Alprazolam (Xanax) 0.25 mg PO TID [facility] Last Admin: 03/24/19 15:28 Dose: 0.25 mg Documented by: Amiodarone HCl (Cordarone) 200 mg PO DAILY [facility] Last Admin: 03/24/19 07:45 Dose: 200 mg Documented by: Aripiprazole (Abilify) 10 mg PO DAILY [facility] Last Admin: 03/24/19 07:45 Dose: 10 mg Documented by: Atorvastatin Calcium (Lipitor) 40 mg PO DAILY [facility] Last Admin: 03/24/19 07:46 Dose: 40 mg Documented by: Baclofen (Lioresal) 10 mg PO BID [facility] Last Admin: 03/24/19 07:45 Dose: 10 mg Documented by: Budesonide/Formoterol Fumarate (Symbicort 160-4.5 Mcg Inhaler) 1 puff INHALATION RT-BID [facility] Last Admin: 03/24/19 08:19 Dose: Not Given Documented by: Cholecalciferol (Vitamin D3 (25 Mcg = 1000 Iu)) 2,000 unit PO DAILY [facility] Last Admin: 03/24/19 07:45 Dose: 2,000 unit Documented by: Cyanocobalamin (Vitamin B-12) 1,000 mcg PO DAILY [facility] Last Admin: 03/24/19 07:45 Dose: 1,000 mcg Documented by: Ferrous Sulfate (Feosol) 325 mg PO BID [facility] Last Admin: 03/24/19 07:45 Dose: 325 mg Documented by: Folic Acid (Folic Acid) 1 mg PO DAILY [facility] Last Admin: 03/24/19 07:45 Dose: 1 mg Documented by: Gabapentin (Neurontin) 300 mg PO TID [facility] Last Admin: 03/24/19 15:28 Dose: 300 mg Documented by: Sodium Chloride (Saline 0.9%) 1,000 mls @ 120 mls/hr IV .Q8H20M [facility] Last Admin: 03/24/19 07:51 Dose: 120 mls/hr Documented by: Isosorbide Mononitrate (Imdur) 30 mg PO DAILY [facility] Last Admin: 03/24/19 07:45 Dose: 30 mg Documented by: Levothyroxine Sodium (Synthroid) 100 mcg PO 0630 [facility] Last Admin: 03/24/19 06:01 Dose: 100 mcg Documented by: Meclizine HCl (Antivert) 25 mg PO QID PRN PRN Reason: Vertigo Naloxone HCl (Narcan) 0.2 mg IV Q2M PRN PRN Reason: Opioid Reversal Oxycodone/Acetaminophen (Percocet 5-325) 1 each PO Q8H PRN PRN Reason: Pain Last Admin: 03/24/19 15:28 Dose: 1 each Documented by: Pantoprazole Sodium (Protonix) 40 mg IV DAILY [facility] Last Admin: 03/24/19 07:44 Dose: 40 mg Documented by: Primidone (Mysoline) 50 mg PO BID [facility] Last Admin: 03/24/19 07:45 Dose: 50 mg Documented by: Thiamine HCl (Vitamin B-1) 100 mg PO DAILY [facility] Last Admin: 03/24/19 07:46 Dose: 100 mg Documented by: Physical examination: VITAL SIGNS: 97.6, 80, 18, 11 3/70, 97% on 3 L GENERAL: Laying in bed, comfortable EYES: Pupils equal. Conjunctiva pale HEENT: External appearance of nose and ears normal, oral cavity grossly normal. NECK: JVD not raised; masses not palpable. HEART: First and second heart sounds are normal; no edema. LUNGS: Respiratory rate increased, decreased breath sounds. ABDOMEN: Soft, upper abdominal tenderness, no guarding or rigidity, liver spleen not palpable, no masses palpable. LYMPHATICS: No lymph nodes palpable in the axilla and neck. PSYCH: Alert and oriented x3; mood and affect normal. Investigations: Accu-Cheks 85, 63, 95 Previous testing potassium 4.1 creatinine 0.53hemoglobin 6.9 platelets 285 Hemoglobin was 10.4 on 03/21/2019 previous testing: Abdominal ultrasound-possible cirrhosis, mildly thickened gallbladder wall, suspect gallstone, large complex mass temperature was centimeters in the mid abdomen Computed tomography scan abdomen-large partially cystic partially solid mass appears to rise from the great echo which was normal measuring 18 by then 0.7 x 1.2 cm. There is displacement of the stomach with luminal narrowing and ear obstruction. The mass appears to infiltrate into the adjacent duodenum. Assessment: -acute GI bleed causing blood loss anemia with recent EGD at [facility] showing gastric ulcer -Jzvay-fydbjtpac-bwzgynve mass, workup done at [facility].-biopsy showing smoothl muscle mass, due to follow-up with Dr. Pandya -Solitary gallstone, asymptomatic -Coronary artery disease -COPD in an ex-smoker -Chronic fibromyalgia -GERD -Hyperlipidemia -Essential hypertension -Primary osteoarthritis -Hypothyroid -Chronic multiple sclerosis -Peripheral neuropathy both the lower extremity -Chronic urinary incontinence -Chronic gait dysfunction uses a walker/wheelchair plan: Patient was transfused 2 units of blood. repeat CBC. Follow with GI. Discussed the patient.we'll change fluids to D5 0.45
[2019-03-24 17:01] LABS: Anisocytosis Slight; HCT 27.2 % (34.0-46.0); HGB 8.6 gm/dL (11.4-16.0); Hypochromasia Slight; MCH 29.6 pg (25.0-35.0); MCHC 31.5 g/dL (31.0-37.0); MCV 94.1 fL (80.0-100.0); Mean Platelet Volume 7.4; Platelet Count 305 k/uL (150-450); Poikilocytosis Slight; RBC 2.89 m/uL (3.80-5.40); RDW 16.2 % (11.5-15.5); WBC 8.4 k/uL (3.8-10.6)
[2019-03-24] MEDS: DEXTROSE 5%-0.45% NACL 1,000 ML IV SCH (21:10)
[2019-03-25] MEDS: LEVOTHYROXINE 100 MCG TAB PO SCH (05:52)
[2019-03-25 07:18] LABS: Anisocytosis Slight; HCT 32.9 % (34.0-46.0); HGB 10.1 gm/dL (11.4-16.0); Hypochromasia Marked; MCH 29.8 pg (25.0-35.0); MCHC 30.7 g/dL (31.0-37.0); MCV 97.2 fL (80.0-100.0); Macrocytosis Slight; Mean Platelet Volume 7.2; Platelet Count 297 k/uL (150-450); Poikilocytosis Slight; RBC 3.39 m/uL (3.80-5.40); RDW 16.2 % (11.5-15.5); WBC 7.8 k/uL (3.8-10.6)
[2019-03-25] MEDS: ALBUTEROL NEBULIZED 2.5 MG/3 ML INHALATION PRN ×2 (09:10→21:33)
[2019-03-25] MEDS: SYMBICORT 160-4.5 MCG INHALER INHALATION SCH ×2 (09:10→21:26)
[2019-03-25] MEDS: PANTOPRAZOLE 40 MG/10 ML VIAL IV SCH (09:42)
[2019-03-25] MEDS: ISOSORBIDE MONONITRATE ER 30 MG TAB.ER.24H PO SCH (09:43)
[2019-03-25] MEDS: ARIPiprazole 10 MG TAB PO SCH (09:43)
[2019-03-25] MEDS: GABAPENTIN 300 MG CAP PO SCH ×3 (09:43→21:19)
[2019-03-25] MEDS: CYANOCOBALAMIN 500 MCG TAB PO SCH (09:43)
[2019-03-25] MEDS: BACLOFEN 10 MG TAB PO SCH ×2 (09:43→21:19)
[2019-03-25] MEDS: ATORVASTATIN 40 MG TAB PO SCH (09:43)
[2019-03-25] MEDS: FOLIC ACID 1 MG TAB PO SCH (09:43)
[2019-03-25] MEDS: ALPRAZolam 0.25 MG TAB PO SCH ×3 (09:43→21:19)
[2019-03-25] MEDS: FERROUS SULFATE 325 MG TAB PO SCH ×2 (09:43→21:19)
[2019-03-25] MEDS: CHOLECALCIFEROL 1,000 UNIT TAB PO SCH (09:45)
[2019-03-25] MEDS: THIAMINE 100 MG TAB PO SCH (09:46)
[2019-03-25] MEDS: oxyCODONE-APAP 5-325MG 1 EACH TAB PO PRN ×2 (09:48→22:14)
[2019-03-25] MEDS: DEXTROSE 5%-0.45% NACL 1,000 ML IV SCH ×2 (09:51→20:06)
[2019-03-25] MEDS: AMIODARONE 200 MG TAB PO SCH (12:44)
[2019-03-25] MEDS: PRIMIDONE 50 MG TAB PO SCH ×2 (12:45→22:14)
--- NOTE | 2019-03-25 18:31 | PN ---
PROGRESS NOTE DATE OF SERVICE: March 25, 2019 Patient is a 63-year-old pleasant white female admitted to hospital with 2 episodes of black tarry stools. Since being in the hospital, she had no further episodes of bleeding. She denies any abdominal pain. No nausea, vomiting. PHYSICAL EXAMINATION: Appears comfortable, no apparent distress. Vital signs stable. Blood pressure 93/56. Pulse 82. Temperature 96.9. HEENT: Examination unremarkable. Conjunctivae pink. Sclerae anicteric. Oral cavity no lesions. NECK: No JVD or lymph node enlargement. CHEST: Clear to auscultation. CARDIOVASCULAR: Heart regular rate and rhythm. ABDOMEN: Soft, nontender, nondistended. Bowel sounds are positive. No organomegaly. EXTREMITIES: No pedal edema. SKIN no rashes. NEUROLOGIC: Alert and oriented x3. No focal deficits. LABS: WBC 7.8, hemoglobin 10.1, platelets 297. Rest of the labs are benign. IMPRESSION: Anemia and black tarry stools of one day's duration. Hemoglobin was 8.6. She is status post one unit of blood transfusion and today hemoglobin is 10.1 g/dL. The patient did not have any further episodes of bleeding since being in the hospital. She did have an upper endoscopy done 6 days ago at [facility]. Report is not available at the time of this dictation. However, apparently it showed a gastric mass with an ulcer and an endoscopic ultrasound with biopsy of the mass was done. The patient was scheduled to see a surgical oncologist at [facility] last week but she missed the appointment because of recent hospitalization. In any event, the patient has no further bleeding. Hemoglobin remains stable. RECOMMENDATIONS: 1. No plans on any endoscopy intervention. 2. Advance diet as tolerated. 3. Continue Protonix 40 mg daily. 4. Patient was advised to follow up with Surgical Oncology at [facility] and with Dr. Egan here following discharge from the hospital. Thank you for this consultation. MMODL / IJN: [id number] /
--- NOTE | 2019-03-25 21:11 | P.PN ---
Progress Note - Text Progress Note Date: 03/25/19 Chief Complaint: dark stools history of presenting complaint: This is a 63-year-old patient who follows with visiting physicians Dr. Vera. patient was just discharged on March 21from the hospital following a diagnosis of pneumonia. Patient has a rather extensive medical history. Normally uses a wheelchair or a walker to get about. Chronic stable medical conditions include, coronary artery disease, COPD in an ex-smoker, chronic fibromyalgia, GERD, hyperlipidemia, essential hypertension, osteoarthritis, hypothyroid, chronic multiple sclerosis, peripheral neuropathy lower extremity, chronic urinary incontinence. Patient at the end of January was here at the hospital was found to have a large abdominal mass invading surrounding structures and patient transferred to [facility]. at [facility]- patient did have a EGD that showed gastric ulcer. nonbleeding. also. To have a gastric mass. That showed smooth muscle on biopsy.patient was due to follow up at [facility] report has got an appointment to follow-up with Dr. Dominique oncologist locally here. Patient also follows with Dr. Lees who she has seen before. admitted with dark stools. GI was consulted. Today-no further bowel movements. No abdominal pain. Laying in bed. No new issues. Awaiting GI input Review of systems: Was done for constitutional, cardiovascular, GI, pulmonary. relevant finding as above Active Medications Albuterol Sulfate (Ventolin Nebulized) 2.5 mg INHALATION RT-Q6H PRN PRN Reason: Shortness Of Breath Last Admin: 03/25/19 09:10 Dose: 2.5 mg Documented by: Alprazolam (Xanax) 0.25 mg PO TID [facility] Last Admin: 03/25/19 17:03 Dose: 0.25 mg Documented by: Amiodarone HCl (Cordarone) 200 mg PO DAILY [facility] Last Admin: 03/25/19 12:44 Dose: 200 mg Documented by: Aripiprazole (Abilify) 10 mg PO DAILY [facility] Last Admin: 03/25/19 09:43 Dose: 10 mg Documented by: Atorvastatin Calcium (Lipitor) 40 mg PO DAILY [facility] Last Admin: 03/25/19 09:43 Dose: 40 mg Documented by: Baclofen (Lioresal) 10 mg PO BID [facility] Last Admin: 03/25/19 09:43 Dose: 10 mg Documented by: Budesonide/Formoterol Fumarate (Symbicort 160-4.5 Mcg Inhaler) 1 puff INHALATION RT-BID [facility] Last Admin: 03/25/19 09:10 Dose: Not Given Documented by: Cholecalciferol (Vitamin D3 (25 Mcg = 1000 Iu)) 2,000 unit PO DAILY [facility] Last Admin: 03/25/19 09:45 Dose: 2,000 unit Documented by: Cyanocobalamin (Vitamin B-12) 1,000 mcg PO DAILY [facility] Last Admin: 03/25/19 09:43 Dose: 1,000 mcg Documented by: Ferrous Sulfate (Feosol) 325 mg PO BID [facility] Last Admin: 03/25/19 09:43 Dose: 325 mg Documented by: Folic Acid (Folic Acid) 1 mg PO DAILY [facility] Last Admin: 03/25/19 09:43 Dose: 1 mg Documented by: Gabapentin (Neurontin) 300 mg PO TID [facility] Last Admin: 03/25/19 17:03 Dose: 300 mg Documented by: Dextrose/Sodium Chloride (Dextrose 5%-1/2ns Iv Soln) 1,000 mls @ 75 mls/hr IV .[id number] [facility] Last Admin: 03/25/19 20:06 Dose: 75 mls/hr Documented by: Isosorbide Mononitrate (Imdur) 30 mg PO DAILY [facility] Last Admin: 03/25/19 09:43 Dose: 30 mg Documented by: Levothyroxine Sodium (Synthroid) 100 mcg PO 0630 [facility] Last Admin: 03/25/19 05:52 Dose: 100 mcg Documented by: Meclizine HCl (Antivert) 25 mg PO QID PRN PRN Reason: Vertigo Naloxone HCl (Narcan) 0.2 mg IV Q2M PRN PRN Reason: Opioid Reversal Oxycodone/Acetaminophen (Percocet 5-325) 1 each PO Q8H PRN PRN Reason: Pain Last Admin: 03/25/19 09:48 Dose: 1 each Documented by: Pantoprazole Sodium (Protonix) 40 mg PO DAILY [facility] Primidone (Mysoline) 50 mg PO BID [facility] Last Admin: 03/25/19 12:45 Dose: 50 mg Documented by: Thiamine HCl (Vitamin B-1) 100 mg PO DAILY [facility] Last Admin: 03/25/19 09:46 Dose: 100 mg Documented by: Physical examination: VITAL SIGNS: 96.9, 82, 18, 93/56, 95% on 3 L GENERAL: Laying in bed, comfortable EYES: Pupils equal. Conjunctiva pale HEENT: External appearance of nose and ears normal, oral cavity grossly normal. NECK: JVD not raised; masses not palpable. HEART: First and second heart sounds are normal; no edema. LUNGS: Respiratory rate increased, decreased breath sounds. ABDOMEN: Soft, upper abdominal tenderness, no guarding or rigidity, liver spleen not palpable, no masses palpable. LYMPHATICS: No lymph nodes palpable in the axilla and neck. PSYCH: Alert and oriented x3; mood and affect normal. Investigations: hemoglobin 10.1 Previous testing potassium 4.1 creatinine 0.53hemoglobin 6.9 platelets 285 Hemoglobin was 10.4 on 03/21/2019 previous testing: Abdominal ultrasound-possible cirrhosis, mildly thickened gallbladder wall, suspect gallstone, large complex mass temperature was centimeters in the mid abdomen Computed tomography scan abdomen-large partially cystic partially solid mass appears to rise from the great echo which was normal measuring 18 by then 0.7 x 1.2 cm. There is displacement of the stomach with luminal narrowing and ear obstruction. The mass appears to infiltrate into the adjacent duodenum. Assessment: -acute GI bleed causing blood loss anemia with recent EGD at [facility] showing gastric ulcer -Wqnsv-[id number]-ptmtijie mass, workup done at [facility].-biopsy showing smoothl muscle mass, due to follow-up with Dr. Pandya -Solitary gallstone, asymptomatic -Coronary artery disease -COPD in an ex-smoker -Chronic fibromyalgia -GERD -Hyperlipidemia -Essential hypertension -Primary osteoarthritis -Hypothyroid -Chronic multiple sclerosis -Peripheral neuropathy both the lower extremity -Chronic urinary incontinence -Chronic gait dysfunction uses a walker/wheelchair plan: Discussed withfrom GI this morning. She had gone through some of the papers sent from [facility] last week and discussed my findings. She will discuss with Dr. Eliza Solis this afternoon and go from there. Earlier did discuss with the patient that given the recent EGD and the findings, it will not be Beneficial to repeat endoscopy at this point except for weight and watch. Until that is significant bleeding again
[2019-03-26] MEDS: LEVOTHYROXINE 100 MCG TAB PO SCH (06:12)
[2019-03-26] MEDS: ISOSORBIDE MONONITRATE ER 30 MG TAB.ER.24H PO SCH (07:46)
[2019-03-26] MEDS: FOLIC ACID 1 MG TAB PO SCH (07:46)
[2019-03-26] MEDS: ALPRAZolam 0.25 MG TAB PO SCH (07:46)
[2019-03-26] MEDS: CHOLECALCIFEROL 1,000 UNIT TAB PO SCH (07:46)
[2019-03-26] MEDS: CYANOCOBALAMIN 500 MCG TAB PO SCH (07:47)
[2019-03-26] MEDS: ATORVASTATIN 40 MG TAB PO SCH (07:47)
[2019-03-26] MEDS: GABAPENTIN 300 MG CAP PO SCH (07:48)
[2019-03-26] MEDS: AMIODARONE 200 MG TAB PO SCH (07:48)
[2019-03-26] MEDS: THIAMINE 100 MG TAB PO SCH (07:48)
[2019-03-26] MEDS: PRIMIDONE 50 MG TAB PO SCH (07:48)
[2019-03-26] MEDS: ARIPiprazole 10 MG TAB PO SCH (07:48)
[2019-03-26] MEDS: oxyCODONE-APAP 5-325MG 1 EACH TAB PO PRN (07:48)
[2019-03-26] MEDS: FERROUS SULFATE 325 MG TAB PO SCH (07:48)
[2019-03-26] MEDS: BACLOFEN 10 MG TAB PO SCH (07:48)
[2019-03-26] MEDS: DEXTROSE 5%-0.45% NACL 1,000 ML IV SCH (08:15)
[2019-03-26] MEDS ORDERED: PANTOPRAZOLE 40 MG TABLET PO SCH (09:00)
[2019-03-26] MEDS: ALBUTEROL NEBULIZED 2.5 MG/3 ML INHALATION PRN (09:14)
[2019-03-26 09:17] VITALS: RESP 18
[2019-03-26] MEDS: SYMBICORT 160-4.5 MCG INHALER INHALATION SCH (09:17)
[2019-03-26 09:26] VITALS: PULSE 79
[2019-03-26 12:23] LABS: HCT 28.1 % (34.0-46.0); HGB 8.9 gm/dL (11.4-16.0); Hypochromasia Marked; MCH 30.6 pg (25.0-35.0); MCHC 31.7 g/dL (31.0-37.0); MCV 96.7 fL (80.0-100.0); Platelet Count 193 k/uL (150-450); Poikilocytosis Slight; RBC 2.91 m/uL (3.80-5.40); RDW 15.9 % (11.5-15.5); WBC 7.1 k/uL (3.8-10.6)
[2019-03-26] MEDS ORDERED: COLLAGENASE 250 UNIT/GM OINTMENT 30 GM TUBE TOPICAL SCH (12:45)
[2019-03-26 12:46] VITALS: BP 80/48; TEMP 98.9
--- NOTE | 2019-03-26 18:10 | PN ---
PROGRESS NOTE DATE OF DICTATION: 03/26/2019 Patient is a 63-year-old pleasant white female admitted to the hospital with black tarry stools of one day's duration. Since being in the hospital, she has been doing well. She had no further episodes of bleeding. Her hemoglobin remains stable at 8.9 g/dL. PHYSICAL EXAMINATION: Appears comfortable. No apparent distress. Vital signs are stable. Blood pressure 80/48, pulse rate 79, temperature 98.9. HEENT examination unremarkable. Conjunctivae pink. Sclerae anicteric. Oral cavity no lesions. NECK: No JVD or lymph node enlargement. CHEST: Clear to auscultation. HEART: Regular rate and rhythm. ABDOMEN: Soft. Bowel sounds are positive. No organomegaly. EXTREMITIES: No pedal edema. SKIN: No rashes. NEUROLOGIC: Alert and oriented x3. No focal deficits. LABS: Labs from today show hemoglobin 8.9, WBC 7.1, platelets normal. IMPRESSION: Melena of one day's duration. Patient had an upper endoscopy 6 weeks ago that showed a gastric mass with ulceration, which was performed at [facility], biopsies of which are not available at the time of this dictation. The patient is scheduled to see Dr. Egan this Monday. RECOMMENDATIONS: The patient can be discharged home today. She was advised to continue with Protonix 40 mg daily. If she has recurrent bleeding, she was advised to come to the hospital. Thank you for this consultation. MMODL / CHEON: [id number] /
--- NOTE | 2019-04-01 12:58 | P.DS ---
Providers Date of admission: 03/22/19 16:19 Expected date of discharge: 03/26/19 Attending physician: Adolfo Bay Consults: 03/23/19 14:42 Consult Physician Urgent Consulting Provider: Arabella Solis Consult Reason/Comments: GIB- dark tarry stools, HGB-6.9 Do you want consulting provider notified?: Yes Primary care physician: Alexei Vera MD Hospital Course: Chief Complaint: dark stools history of presenting complaint: This is a 63-year-old patient who follows with visiting physicians Dr. Vera. discharged on March 21/2019 from the hospital following a diagnosis of pneumonia. extensive medical history. Normally uses a wheelchair or a walker to get about. Chronic stable medical conditions include, coronary artery disease, COPD in an ex-smoker, chronic fibromyalgia, GERD, hyperlipidemia, essential hypertension, osteoarthritis, hypothyroid, peripheral neuropathy lower extremity, chronic urinary incontinence. Patient at the end of January was here at the hospital was found to have a large abdominal mass invading surrounding structures and patient transferred to [facility]. at [facility]-patient did have a EGD that showed gastric ulcer-nonbleeding. Also found to have a gastric mass- showed smooth muscle on biopsy.patient was due to follow up at [facility] but got an appointment to follow-up with Dr. Dominique oncologist locally here. Patient also follows with Dr. Lees who she has seen before. Hospital course: admitted with dark stools. GI was consulted. Patient received a unit of blood. No further intervention per GI.. Hemoglobin had dropped to 6.9 from 9.2 from the previous day. Hemoglobin was 8.9 before discharge Today-no further bowel movements. No abdominal pain. Comfortable. Okay projected discharge Consultation: Dr. Eliza Solis from GI Physical examination: VITAL SIGNS: 97.8, 78, 19, 93/56, 98% on 2 L GENERAL: Laying in bed, comfortable EYES: Pupils equal. Conjunctiva pale HEENT: External appearance of nose and ears normal, oral cavity grossly normal. NECK: JVD not raised; masses not palpable. HEART: First and second heart sounds are normal; no edema. LUNGS: Respiratory rate increased, decreased breath sounds. ABDOMEN: Soft, non-tenderness, no guarding or rigidity, liver spleen not palpable, no masses palpable. PSYCH: Alert and oriented x3; mood and affect normal. Investigations: Hemoglobin 8.9 Previous testing potassium 4.1 creatinine 0.53hemoglobin 6.9 platelets 285 Hemoglobin was 10.4 on 03/21/2019 previous testing: Abdominal ultrasound-possible cirrhosis, mildly thickened gallbladder wall, suspect gallstone, large complex mass temperature was centimeters in the mid abdomen Computed tomography scan abdomen-large partially cystic partially solid mass appears to rise from the great curvature of the stomach which l measuring 18 by then 10.7 x 11.2 cm. There is displacement of the stomach with luminal narrowing and near obstruction. The mass appears to infiltrate into the adjacent duodenum. Assessment: -acute GI bleed causing blood loss anemia with recent EGD at [facility] showing gastric ulcer -Kddoo-wxitqfslf-hkoqmvpy mass, workup done at [facility].-biopsy showing smooth muscle mass, due to follow-up with Dr. Egan -Solitary gallstone, asymptomatic -Coronary artery disease -COPD in an ex-smoker -Chronic fibromyalgia -GERD -Hyperlipidemia -Essential hypertension -Primary osteoarthritis -Hypothyroid -Chronic multiple sclerosis -Peripheral neuropathy both the lower extremity -Chronic urinary incontinence -Chronic gait dysfunction uses a walker/wheelchair Disposition: Home Plan - Discharge Summary Discharge Rx Participant: No New Discharge Prescriptions: Continue Folic Acid 1 mg PO DAILY Primidone [Mysoline] 50 mg PO BID Albuterol Nebulized [Ventolin Nebulized] 2.5 mg INHALATION RT-Q6H PRN PRN Reason: Shortness Of Breath Thiamine [Vitamin B-1] 100 mg PO DAILY oxyCODONE HCL/ACETAMINOPHEN [Oxycodone-Acetaminophen 5-325] 1 tab PO Q8H PRN PRN Reason: Pain ALPRAZolam [Xanax] 0.25 mg PO TID ARIPiprazole [Abilify] 10 mg PO DAILY Baclofen [Lioresal] 10 mg PO BID Cholecalciferol (Vitamin D3) [Vitamin D3] 2,000 unit PO DAILY Ferrous Sulfate [Iron (65 MG Elemental)] 325 mg PO BID Levothyroxine Sodium [Synthroid] 100 mcg PO DAILY Atorvastatin [Lipitor] 40 mg PO DAILY #30 tab Amiodarone [Cordarone] 200 mg PO DAILY Isosorbide Mononitrate ER [Imdur] 30 mg PO DAILY Cyanocobalamin (Vitamin B-12) [Vitamin B-12] 1,000 mcg PO DAILY Omeprazole 40 mg PO BID Albuterol Sulfate [Proair Hfa] 2 puff INHALATION RT-Q6H PRN PRN Reason: Shortness Of Breath Fluticasone/Salmeterol [Fluticasone-Salmeterol 113-14] 1 puff INHALATION RT- BID Loperamide [Imodium] 2 mg PO DAILY PRN PRN Reason: Diarrhea Gabapentin [Neurontin] 300 mg PO TID Discontinued Aspirin EC [Ecotrin Low Dose] 81 mg PO DAILY Meclizine [Antivert] 25 mg PO QID PRN PRN Reason: Vertigo Discharge Medication List Folic Acid 1 mg PO DAILY 04/08/14 [History] Primidone [Mysoline] 50 mg PO BID 04/12/15 [History] Albuterol Nebulized [Ventolin Nebulized] 2.5 mg INHALATION RT-Q6H PRN 04/13/15 [History] Thiamine [Vitamin B-1] 100 mg PO DAILY 04/13/15 [History] ALPRAZolam [Xanax] 0.25 mg PO TID 09/07/15 [History] oxyCODONE HCL/ACETAMINOPHEN [Oxycodone-Acetaminophen 5-325] 1 tab PO Q8H PRN 09/07/15 [History] ARIPiprazole [Abilify] 10 mg PO DAILY 03/11/17 [History] Baclofen [Lioresal] 10 mg PO BID 07/09/17 [History] Cholecalciferol (Vitamin D3) [Vitamin D3] 2,000 unit PO DAILY 09/27/18 [History] Ferrous Sulfate [Iron (65 MG Elemental)] 325 mg PO BID 09/27/18 [History] Levothyroxine Sodium [Synthroid] 100 mcg PO DAILY 09/27/18 [History] Atorvastatin [Lipitor] 40 mg PO DAILY #30 tab 09/28/18 [Rx] Amiodarone [Cordarone] 200 mg PO DAILY 02/06/19 [History] Isosorbide Mononitrate ER [Imdur] 30 mg PO DAILY 02/06/19 [History] Albuterol Sulfate [Proair Hfa] 2 puff INHALATION RT-Q6H PRN 03/16/19 [History] Cyanocobalamin (Vitamin B-12) [Vitamin B-12] 1,000 mcg PO DAILY 03/16/19 [History] Fluticasone/Salmeterol [Fluticasone-Salmeterol 113-14] 1 puff INHALATION RT-BID 03/16/19 [History] Omeprazole 40 mg PO BID 03/16/19 [History] Gabapentin [Neurontin] 300 mg PO TID 03/22/19 [History] Loperamide [Imodium] 2 mg PO DAILY PRN 03/22/19 [History] Follow up Appointment(s)/Referral(s): Alexei Vera MD [Primary Care Provider] - 1-2 days (Patient to call Dr. Vera's to schedule a follow up appointment. ) Reid Egan MD [STAFF PHYSICIAN] - 10 Days [facility] Visiting Nurse, [NON-STAFF] - Cameron Quiros MD [STAFF PHYSICIAN] - 1 Week Ambulatory/Diagnostic Orders: Complete Blood Count w/diff [LAB.AMB] Time Frame: 03/29/19, Location: None Selected Patient Instructions/Handouts: Gastrointestinal Bleeding (DC) Activity/Diet/Wound Care/Special Instructions: Visiting Physicians: Dr. Vera - this patient scores high for Palliative Care. Discharge Disposition: HOME WITH HOME HEALTH SERVICES
== END 2019-03-26 16:20 | disposition home or self-care (01) ==
LOC: EC 13:08 → INTOOBSV 16:19 → 3SCARD 16:19 → 5NMEDONC 03-24 17:45 → UNDODISIN 03-26 16:20
PROVIDERS: ADMIT Hospitalist; ATTEND Hospitalist
DX: K25.4 Chronic or unspecified gastric ulcer with hemorrhage (principal); K51.911 Ulcerative colitis, unspecified with rectal bleeding; J96.10 Chronic respiratory failure, unspecified whether with hypoxia or hypercapnia; I11.0 Hypertensive heart disease with heart failure; D62 Acute posthemorrhagic anemia; I50.9 Heart failure, unspecified; E03.9 Hypothyroidism, unspecified; K31.89 Other diseases of stomach and duodenum; G35 Multiple sclerosis; J44.9 Chronic obstructive pulmonary disease, unspecified; I25.10 Atherosclerotic heart disease of native coronary artery without angina pectoris; M79.7 Fibromyalgia; E78.00 Pure hypercholesterolemia, unspecified; G62.9 Polyneuropathy, unspecified; F41.0 Panic disorder [episodic paroxysmal anxiety]; F31.9 Bipolar disorder, unspecified; K21.9 Gastro-esophageal reflux disease without esophagitis; E78.5 Hyperlipidemia, unspecified; I25.2 Old myocardial infarction; M19.91 Primary osteoarthritis, unspecified site; I07.1 Rheumatic tricuspid insufficiency; K80.20 Calculus of gallbladder without cholecystitis without obstruction; G89.29 Other chronic pain; M54.9 Dorsalgia, unspecified; H26.9 Unspecified cataract; I73.9 Peripheral vascular disease, unspecified; R32 Unspecified urinary incontinence; F10.11 Alcohol abuse, in remission; Z86.74 Personal history of sudden cardiac arrest; Z99.81 Dependence on supplemental oxygen; Z79.82 Long term (current) use of aspirin; Z79.890 Hormone replacement therapy; Z79.899 Other long term (current) drug therapy; Z87.01 Personal history of pneumonia (recurrent); Z86.19 Personal history of other infectious and parasitic diseases; Z87.440 Personal history of urinary (tract) infections; Z98.890 Other specified postprocedural states; Z87.81 Personal history of (healed) traumatic fracture; Z95.810 Presence of automatic (implantable) cardiac defibrillator; Z90.49 Acquired absence of other specified parts of digestive tract; Z95.5 Presence of coronary angioplasty implant and graft; Z87.19 Personal history of other diseases of the digestive system; Z87.891 Personal history of nicotine dependence; Z87.11 Personal history of peptic ulcer disease; Z86.69 Personal history of other diseases of the nervous system and sense organs; Z88.0 Allergy status to penicillin; Z82.49 Family history of ischemic heart disease and other diseases of the circulatory system; Z82.0 Family history of epilepsy and other diseases of the nervous system; Z81.1 Family history of alcohol abuse and dependence; Z82.69 Family history of other diseases of the musculoskeletal system and connective tissue
CPT/HCPCS: 96376 ×3; 96365; 96366 ×3; 96361 ×3; 96375; 99285; 36415; 94640 ×7; 94760 ×2; 93005; 86900; 86901; 80053; 80048; 85025 ×2; 85027 ×3; 85610; 85730; 86850; 86920; 82272; 71046; G0378 ×6; P9016; C9113 ×4; 96374

== ENCOUNTER 2019-03-28 15:06 | Inpatient (IN) | payer OTHER ==
[~2019-03-28 15:06] MED LIST: VANCOMYCIN 1,000 MG in SODIUM CHLORIDE 0.9% 250 ML IVPB ONE
[2019-03-28] MEDS ORDERED: SODIUM CHLORIDE 0.9% 1,000 ML IV STA (15:25)
[2019-03-28] MEDS ORDERED: SODIUM CHLORIDE 0.9% 500 ML 500 ML IV STA (15:25)
--- NOTE | 2019-03-28 16:27 | ED ---
Weakness HPI - General Source: patient, EMS, RN notes reviewed, old records reviewed Mode of arrival: EMS Limitations: physical limitation - History of Present Illness MD Complaint: generalized weakness <Rick Sousa - Last Filed: 03/28/19 16:39> <Cheo Felder - Last Filed: 03/28/19 18:18> - General Chief complaint: Weakness Stated complaint: Weakness Time Seen by Provider: 03/28/19 15:06 - History of Present Illness Initial comments: This is a 63-year-old female history of MS as well as recent admission for GI bleeding who presents by EMS today with complaints of generalized weakness when after past couple days since her discharge from the hospital. She does state that she did take her medications as directed she denies any fevers chills sweats cough or phlegm production. Just generalized weakness nothing focal. She denies any trauma denies any other modifying factors at this time (Rick Sousa) - Related Data Home Medications Medication Instructions Recorded Confirmed Folic Acid 1 mg PO DAILY 04/08/14 03/22/19 Primidone [Mysoline] 50 mg PO BID 04/12/15 03/22/19 Albuterol Nebulized [Ventolin 2.5 mg INHALATION RT-Q6H PRN 04/13/15 03/22/19 Nebulized] Thiamine [Vitamin B-1] 100 mg PO DAILY 04/13/15 03/22/19 ALPRAZolam [Xanax] 0.25 mg PO TID 09/07/15 03/22/19 oxyCODONE HCL/ACETAMINOPHEN 1 tab PO Q8H PRN 09/07/15 03/22/19 [Oxycodone-Acetaminophen 5-325] ARIPiprazole [Abilify] 10 mg PO DAILY 03/11/17 03/22/19 Baclofen [Lioresal] 10 mg PO BID 07/09/17 03/22/19 Cholecalciferol (Vitamin D3) 2,000 unit PO DAILY 09/27/18 03/22/19 [Vitamin D3] Ferrous Sulfate [Iron (65 MG 325 mg PO BID 09/27/18 03/22/19 Elemental)] Levothyroxine Sodium [Synthroid] 100 mcg PO DAILY 09/27/18 03/22/19 Amiodarone [Cordarone] 200 mg PO DAILY 02/06/19 03/22/19 Isosorbide Mononitrate ER [Imdur] 30 mg PO DAILY 02/06/19 03/22/19 Albuterol Sulfate [Proair Hfa] 2 puff INHALATION RT-Q6H PRN 03/16/19 03/22/19 Cyanocobalamin (Vitamin B-12) 1,000 mcg PO DAILY 03/16/19 03/22/19 [Vitamin B-12] Fluticasone/Salmeterol 1 puff INHALATION RT-BID 03/16/19 03/22/19 [Fluticasone-Salmeterol 113-14] Omeprazole 40 mg PO BID 03/16/19 03/22/19 Gabapentin [Neurontin] 300 mg PO TID 03/22/19 03/22/19 Loperamide [Imodium] 2 mg PO DAILY PRN 03/22/19 03/22/19 Previous Rx's Medication Instructions Recorded Atorvastatin [Lipitor] 40 mg PO DAILY #30 tab 09/28/18 Allergies Allergy/AdvReac Type Severity Reaction Status Date / Time Penicillins Allergy Swelling Verified 03/22/19 17:24 Review of Systems ROS Other: All systems not noted in ROS Statement are negative. <Rick Sousa - Last Filed: 03/28/19 16:39> ROS Other: All systems not noted in ROS Statement are negative. <Cheo Felder - Last Filed: 03/28/19 18:18> ROS Statement: Those systems with pertinent positive or pertinent negative responses have been documented in the HPI. Past Medical History Past Medical History: Coronary Artery Disease (CAD), Chest Pain / Angina, Heart Failure, COPD, Eye Disorder, Fibromyalgia, GERD/Reflux, Hyperlipidemia, Hypertension, Myocardial Infarction (GA), Musculoskeletal Disorder, Neurologic Disorder, Osteoarthritis (OA), Pneumonia, Respiratory Disorder, Skin Disorder, Thyroid Disorder, Vascular Disorder Additional Past Medical History / Comment(s): 11/2012 GA with cardiac arrest/vtach, chronic respiratory failure-uses home O2 prn 2-3L/NC, tracheobronchitis, tricuspid regurgitation, multiple sclerosis, neuropathy bilateral legs/feet, chronic back pain, DDD, migraines, bilateral carpal tunnel syndrome, past L/R rib fractures, past L hip fracture with surgery, PUD with ulcer rupture with surgery, peritonitis, pancreatitis, IBS/ ulcerative colitis, chronic anemia, UTIs, urinary incontinence, endometriosis, hypothyroid, R cataract and L eye cataract forming again, PVD, L leg cellulitis, Last Myocardial Infarction Date:: 2012 History of Any Multi-Drug Resistant Organisms: ESBL Date of last positivie culture/infection: 02/18/2014 MDRO Source:: Blood and Urine E. coli ESBL Past Surgical History: AICD, Appendectomy, Heart Catheterization, Heart Catheterization With Stent, Orthopedic Surgery, Pacemaker Additional Past Surgical History / Comment(s): Cardioversion, Laparotomy for ruptured gastric ulcer, R foot fracture with surgery, L hip fracture with rm rgery-has plate and screw, EGD, colonoscopies with bening polypectomy. Past Anesthesia/Blood Transfusion Reactions: No Reported Reaction Additional Past Anesthesia/Blood Transfusion Reaction / Comment(s): Pt has received blood in past without reaction. Date of Last Stent Placement:: 11/2012 Type of Cardiac Device: Permanent Pacemaker, AICD Device Placement Date:: 2012 Past Psychological History: Anxiety, Bipolar, Depression, Panic Disorder Smoking Status: Former smoker Past Alcohol Use History: None Reported Past Drug Use History: None Reported - Past Family History Mother Family Medical History: Musculoskeletal Disorder Additional Family Medical History / Comment(s): MS Sister(s) Family Medical History: Myocardial Infarction (GA) Additional Family Medical History / Comment(s): SISTER ALSO HAS MS Brother(s) Family Medical History: Musculoskeletal Disorder, Neurologic Disorder Additional Family Medical History / Comment(s): MS Father Additional Family Medical History / Comment(s): ETOH abuse, back surgery <Rick Sousa - Last Filed: 03/28/19 16:39> General Exam Limitations: physical limitation General appearance: alert, in no apparent distress Head exam: Present: atraumatic, normocephalic, normal inspection Eye exam: Present: normal appearance, PERRL, EOMI. Absent: scleral icterus, conjunctival injection, periorbital swelling ENT exam: Present: normal exam, mucous membranes moist Neck exam: Present: normal inspection. Absent: tenderness, meningismus, lymphadenopathy Respiratory exam: Present: normal lung sounds bilaterally. Absent: respiratory distress, wheezes, rales, rhonchi, stridor Cardiovascular Exam: Present: regular rate, normal rhythm, normal heart sounds. Absent: systolic murmur, diastolic murmur, rubs, gallop, clicks GI/Abdominal exam: Present: soft, normal bowel sounds. Absent: distended, tenderness, guarding, rebound, rigid Extremities exam: Present: normal inspection, full ROM, normal capillary refill. Absent: tenderness, pedal edema, joint swelling, calf tenderness Back exam: Present: normal inspection Neurological exam: Present: alert, oriented X3, CN II-XII intact Psychiatric exam: Present: normal affect, normal mood Skin exam: Present: warm, dry, intact, normal color. Absent: rash <Rick Sousa - Last Filed: 03/28/19 16:39> - General Exam Comments Initial Comments: this is a well-developed asthenic appearing female who is awake alert oriented 3 (Rick Sousa) Course <Rick Sousa Last Filed: 03/28/19 16:39> Vital Signs 03/28/19 03/28/19 03/28/19 15:13 15:19 15:20 Temperature 101.6 F H Pulse Rate 78 Respiratory 20 Rate Blood Pressure 82/44 73/44 O2 Sat by Pulse 87 L 91 L 92 L Oximetry 03/28/19 03/28/19 03/28/19 15:30 15:40 15:50 Temperature Pulse Rate 75 75 Respiratory 14 16 Rate Blood Pressure 82/44 73/40 85/47 O2 Sat by Pulse 86 L 88 L Oximetry 03/28/19 03/28/19 03/28/19 16:00 16:10 16:20 Temperature Pulse Rate 74 74 76 Respiratory 16 14 16 Rate Blood Pressure 85/47 77/42 77/43 O2 Sat by Pulse Oximetry 03/28/19 03/28/19 16:21 17:00 Temperature Pulse Rate 75 80 Respiratory 16 16 Rate Blood Pressure 77/43 89/58 O2 Sat by Pulse 98 96 Oximetry - Reevaluation(s) Reevaluation #1: 03/28/19 16:39 The patient's care was endorsed to Dr. Taylor wouldn't at our shift change the patient is pending lab work and imaging studies. (Rick Sousa) EKG Findings - EKG Results: EKG: interpreted by ERMD (sinus rhythm a 76. Interval 154 QRS duration 100 QT since QTC 496/558 nonspecific inferior configuration also nonspecific ST T-wave configuration with a prolonged QT noted) <Rick Sousa - Last Filed: 03/28/19 16:39> Medical Decision Making - Lab Data Result diagrams: 03/28/19 15:56 <Rick Sousa - Last Filed: 03/28/19 16:39> - Lab Data Result diagrams: 03/28/19 15:56 03/28/19 15:56 <Cheo Felder - Last Filed: 03/28/19 18:18> - Medical Decision Making Patient care was sent out to me by previous shift physician Dr. Sousa. 63-year-old female presents today with chief complaint of shortness of breath, right ear pain. She was recently discharged from the hospital for diagnosis of pneumonia. Patient was discharged 2 days ago. She was also evaluated for GI he morrhage at that time. Patient was admitted and evaluated by GI. She had melanoma 1 day. 6 weeks ago patient had upper endoscopy that showed gastric mass with ulceration performed at [facility]. Physical exam shows right TM effusion concerning for otitis media. Patient is also having respiratory symptoms, cough, worsening shortness of breath. She does have a history of COPD. Patient has no other localizing symptoms at this time.plan at sign out was to follow-up with laboratory evaluation and determine Vital signs upon arrival shows hypertension. Patient does normally have been baseline hypertension with systolics ranging to 90s and 110s. The pressure today is 82/44. She also is febrile with temperature 101.6. Given patient was recently admitted to the hospital she will be covered with broad-spectrum antibiotics for concerns of hospital acquired pneumonia. Given patient's age and comorbidities there is concern of sepsis. Patient was ordered for 1500 mL of intravenous fluids by Dr. Sousa.I bedside patient is well-appearing. Does not show any signs of altered mental status.Laboratory evaluation obtained. No leukocytosis. Hemoglobin of 7.1 with a delta of approximately 2 g since 2 days ago. Coag panel is unremarkable. Metabolic panel shows sodium 132, potassium 2.8, magnesium 1.4. Calcium 6.9 however corrected calcium of 8.6. Patient was ordered for IV potassium and magnesium.given drop hemoglobin there is strong suspicion of GI bleed. Patient given 80 mg of IV Protonix.rectal exam was performed. No gross blood on rectal exam. There is a lot of dark stool in the vault. No tenderness with rectal exam. Patient hasn't had any bloody mild movements while in the emergency department. Chart review shows that she has a history of gastric tumor with ulcer formation.pneumonia sepsis. Patient also influenza be positive. Patient given Tamiflu. Discussed patient case with Dr. Bay who requested patient be given transfusion of blood. Patient is admitted. (Cheo Felder) - Lab Data Lab Results 03/28/19 03/28/19 03/28/19 Range/Units 15:56 15:56 15:56 WBC 6.7 (3.8-10.6) k/uL RBC 2.32 L (3.80-5.40) m/uL Hgb 7.1 L D (11.4-16.0) gm/dL Hct 22.0 L (34.0-46.0) % MCV 94.6 (80.0-100.0) fL MCH 30.4 (25.0-35.0) pg MCHC 32.1 (31.0-37.0) g/dL RDW 16.0 H (11.5-15.5) % Plt Count 171 (150-450) k/uL Neutrophils % 83 % Lymphocytes % 7 % Monocytes % 7 % Eosinophils % 0 % Basophils % 1 % Neutrophils # 5.6 (1.3-7.7) k/uL Lymphocytes # 0.5 L (1.0-4.8) k/uL Monocytes # 0.5 (0-1.0) k/uL Eosinophils # 0.0 (0-0.7) k/uL Basophils # 0.1 (0-0.2) k/uL Hypochromasia Slight Poikilocytosis Slight PT (9.0-12.0) sec INR (<1.2) APTT (22.0-30.0) sec Sodium 132 L (137-145) mmol/L Potassium 2.8 L (3.5-5.1) mmol/L Chloride 94 L (98-107) mmol/L Carbon Dioxide 36 H (22-30) mmol/L Anion Gap 2 mmol/L BUN 6 L (7-17) mg/dL Creatinine 0.53 (0.52-1.04) mg/dL Est GFR (CKD-EPI)AfAm >90 (>60 ml/min/1.73 sqM) Est GFR (CKD-EPI)NonAf >90 (>60 ml/min/1.73 sqM) Glucose 96 (74-99) mg/dL Plasma Lactic Acid Zaki 1.8 (0.7-2.0) mmol/L Calcium 6.9 L (8.4-10.2) mg/dL Magnesium 1.4 L (1.6-2.3) mg/dL Total Bilirubin 0.4 (0.2-1.3) mg/dL AST 30 (14-36) U/L ALT 12 (4-34) U/L Alkaline Phosphatase 42 (38-126) U/L Creatine Kinase 88 (30-135) U/L Troponin I (0.000-0.034) ng/mL NT-Pro-B Natriuret Pep pg/mL Total Protein 4.2 L (6.3-8.2) g/dL Albumin 1.9 L (3.5-5.0) g/dL Influenza Type A RNA (Not Detectd) Influenza Type B (PCR) (Not Detectd) 03/28/19 03/28/19 03/28/19 Range/Units 15:56 15:56 15:56 WBC (3.8-10.6) k/uL RBC (3.80-5.40) m/uL Hgb (11.4-16.0) gm/dL Hct (34.0-46.0) % MCV (80.0-100.0) fL MCH (25.0-35.0) pg MCHC (31.0-37.0) g/dL RDW (11.5-15.5) % Plt Count (150-450) k/uL Neutrophils % % Lymphocytes % % Monocytes % % Eosinophils % % Basophils % % Neutrophils # (1.3-7.7) k/uL Lymphocytes # (1.0-4.8) k/uL Monocytes # (0-1.0) k/uL Eosinophils # (0-0.7) k/uL Basophils # (0-0.2) k/uL Hypochromasia Poikilocytosis PT 14.0 H (9.0-12.0) sec INR 1.4 H (<1.2) APTT 30.9 H (22.0-30.0) sec Sodium (137-145) mmol/L Potassium (3.5-5.1) mmol/L Chloride (98-107) mmol/L Carbon Dioxide (22-30) mmol/L Anion Gap mmol/L BUN (7-17) mg/dL Creatinine (0.52-1.04) mg/dL Est GFR (CKD-EPI)AfAm (>60 ml/min/1.73 sqM) Est GFR (CKD-EPI)NonAf (>60 ml/min/1.73 sqM) Glucose (74-99) mg/dL Plasma Lactic Acid Zaki (0.7-2.0) mmol/L Calcium (8.4-10.2) mg/dL Magnesium (1.6-2.3) mg/dL Total Bilirubin (0.2-1.3) mg/dL AST (14-36) U/L ALT (4-34) U/L Alkaline Phosphatase (38-126) U/L Creatine Kinase (30-135) U/L Troponin I 0.018 (0.000-0.034) ng/mL NT-Pro-B Natriuret Pep 1580 pg/mL Total Protein (6.3-8.2) g/dL Albumin (3.5-5.0) g/dL Influenza Type A RNA (Not Detectd) Influenza Type B (PCR) (Not Detectd) 03/28/19 Range/Units 17:03 WBC (3.8-10.6) k/uL RBC (3.80-5.40) m/uL Hgb (11.4-16.0) gm/dL Hct (34.0-46.0) % MCV (80.0-100.0) fL MCH (25.0-35.0) pg MCHC (31.0-37.0) g/dL RDW (11.5-15.5) % Plt Count (150-450) k/uL Neutrophils % % Lymphocytes % % Monocytes % % Eosinophils % % Basophils % % Neutrophils # (1.3-7.7) k/uL Lymphocytes # (1.0-4.8) k/uL Monocytes # (0-1.0) k/uL Eosinophils # (0-0.7) k/uL Basophils # (0-0.2) k/uL Hypochromasia Poikilocytosis PT (9.0-12.0) sec INR (<1.2) APTT (22.0-30.0) sec Sodium (137-145) mmol/L Potassium (3.5-5.1) mmol/L Chloride (98-107) mmol/L Carbon Dioxide (22-30) mmol/L Anion Gap mmol/L BUN (7-17) mg/dL Creatinine (0.52-1.04) mg/dL Est GFR (CKD-EPI)AfAm (>60 ml/min/1.73 sqM) Est GFR (CKD-EPI)NonAf (>60 ml/min/1.73 sqM) Glucose (74-99) mg/dL Plasma Lactic Acid Zaki (0.7-2.0) mmol/L Calcium (8.4-10.2) mg/dL Magnesium (1.6-2.3) mg/dL Total Bilirubin (0.2-1.3) mg/dL AST (14-36) U/L ALT (4-34) U/L Alkaline Phosphatase (38-126) U/L Creatine Kinase (30-135) U/L Troponin I (0.000-0.034) ng/mL NT-Pro-B Natriuret Pep pg/mL Total Protein (6.3-8.2) g/dL Albumin (3.5-5.0) g/dL Influenza Type A RNA Not Detected (Not Detectd) Influenza Type B (PCR) Detected H (Not Detectd) Disposition <Rick Sousa - Last Filed: 03/28/19 16:39> Decision Time: 18:18 <Cheo Felder - Last Filed: 03/28/19 18:18> Clinical Impression: Influenza, Sepsis, GI bleed, Symptomatic anemia, Electrolyte abnormality Disposition: ADMITTED IP TO THIS HOSP Condition: Fair Referrals: Alexei Vera MD [Primary Care Provider] - 1-2 days
[2019-03-28 16:31] LABS: ALT 12 U/L (4-34); AST 30 U/L (14-36); African American GFR (CKD) >90 (>60 ml/min/1.73 sqM); Albumin 1.9 g/dL (3.5-5.0); Alkaline Phosphatase 42 U/L (38-126); Anion Gap 2 mmol/L; Blood Urea Nitrogen 6 mg/dL (7-17); Calcium 6.9 mg/dL (8.4-10.2); Carbon Dioxide 36 mmol/L (22-30); Chloride 94 mmol/L (98-107); Creatine Kinase 88 U/L (30-135); Glucose 96 mg/dL (74-99); Magnesium 1.4 mg/dL (1.6-2.3); Non-African American GFR(CKD) >90 (>60 ml/min/1.73 sqM); Potassium 2.8 mmol/L (3.5-5.1); Sodium 132 mmol/L (137-145); Total Bilirubin 0.4 mg/dL (0.2-1.3); Total Protein 4.2 g/dL (6.3-8.2)
[2019-03-28] MEDS ORDERED: HYDROCORTISONE SUCCINATE 100 MG/2 ML VIAL IV STA (16:33)
[2019-03-28] MEDS ORDERED: POTASSIUM CHLORIDE 20 MEQ in WATER FOR INJECTION 1 100ML.BAG IVPB STA (16:33)
[2019-03-28 16:39] LABS: Basophils # (A) 0.1 k/uL (0-0.2); Basophils % (A) 1 %; Eosinophils % (A) 0 %; Hypochromasia Slight; Lymphocytes # (A) 0.5 k/uL (1.0-4.8); Lymphocytes % (A) 7 %; MCH 30.4 pg (25.0-35.0); MCHC 32.1 g/dL (31.0-37.0); MCV 94.6 fL (80.0-100.0); Monocytes # (A) 0.5 k/uL (0-1.0); Monocytes % (A) 7 %; Neutrophils # (A) 5.6 k/uL (1.3-7.7); Neutrophils % (A) 83 %; Platelet Count 171 k/uL (150-450); Poikilocytosis Slight; RBC 2.32 m/uL (3.80-5.40); WBC 6.7 k/uL (3.8-10.6)
[2019-03-28] MEDS ORDERED: CEFEPIME 2 GM in SODIUM CHLORIDE 0.9% 100 ML IVPB STA (16:39)
[2019-03-28] MEDS ORDERED: VANCOMYCIN IV PER PHARMACY 1 EACH MISC MISCELLANE PRN (16:39)
[2019-03-28 16:42] LABS: HGB 7.1 gm/dL (11.4-16.0)
[2019-03-28 16:47] LABS: INR 1.4 (<1.2); Partial Thromboplastin Time 30.9 sec (22.0-30.0)
[2019-03-28] MEDS: MAGNESIUM SULFATE-D5W PMX 1 GM in DEXTROSE/WATER 1 100ML.BAG IVPB SCH ×2 (16:51→18:11)
--- NOTE | 2019-03-28 16:57 | XR ---
EXAMINATION TYPE: XR chest 2V DATE OF EXAM: 03/28/2019 COMPARISON: 03/22/2019 HISTORY: Short of breath TECHNIQUE: 2 views FINDINGS: There is no obvious heart failure. There is coarse interstitial density in the lungs. There is some mild infiltrate at the right lung base. There is slight blunting right costophrenic angle. T here is 25% wedging of T8 vertebra. Unchanged. IMPRESSION: Pulmonary interstitial fibrosis. There is evidence of some acute pneumonia right lung bas e with pleural reaction and atelectasis unchanged. No definite heart failure.
[2019-03-28] MEDS ORDERED: VANCOMYCIN 1,000 MG in SODIUM CHLORIDE 0.9% 250 ML IVPB ONE (17:00)
[2019-03-28] MEDS ORDERED: PANTOPRAZOLE 40 MG/10 ML VIAL IVP ONE (17:04)
[2019-03-28] MEDS ORDERED: ACETAMINOPHEN TAB 500 MG TAB PO STA (17:26)
--- NOTE | 2019-03-28 17:55 | XR ---
EXAMINATION TYPE: XR abdomen 1V DATE OF EXAM: 03/28/2019 COMPARISON: NONE HISTORY: Weakness TECHNIQUE: Single view FINDINGS: Pelvic ring is intact. There is left hip nailing. Sacroiliac joints are intact. I see no ac lower elwha fracture. Bowel gas pattern is normal. There is no sign of intestinal obstruction or pneumoperito neum. Fecal pattern is normal. IMPRESSION: No acute abnormality of the pelvis. Nonacute abdomen.
[2019-03-28] MEDS ORDERED: OSELTAMIVIR 75 MG CAP PO STA (17:58)
[2019-03-28] MEDS ORDERED: NALOXONE 0.4 MG/ML 1 ML VIAL IV PRN (18:11)
[2019-03-28] MEDS ORDERED: ONDANSETRON 4 MG/2 ML VIAL IVP PRN (18:11)
[2019-03-28] MEDS: ALBUTEROL NEBULIZED 2.5 MG/3 ML INHALATION PRN (19:29)
[2019-03-28] MEDS ORDERED: ALBUTEROL INHALER 60 PUFF/8 GM INHALER INHALATION PRN (20:38)
[2019-03-28] MEDS ORDERED: LOPERAMIDE 2 MG CAP PO PRN (20:38)
[2019-03-28] MEDS ORDERED: NON FORMULARY DRUG (Omeprazole [Omeprazole] 40 MG) PO SCH (21:00)
[2019-03-28 22:01] LABS: Appearance,Urine Clear (Clear); Bilirubin,Urine Negative (Negative); Blood,Urine Negative (Negative); Color,Urine Light Yellow; Glucose,Urine (UA) Negative (Negative); Ketones,Urine Negative (Negative); Leukocyte Esterase,Urine Negative (Negative); Nitrite,Urine Negative (Negative); PH, Urine 6.5 (5.0-8.0); Protein,Urine Negative (Negative); Specific Gravity,Urine 1.002 (1.001-1.035); Urobilinogen,Urine <2.0 mg/dL (<2.0)
--- NOTE | 2019-03-29 00:14 | P.HPIM ---
History of Present Illness H&P Date: 03/28/19 Chief Complaint: Cough and congestion history of presenting complaint: This is a 63-year-old patient who follows with visiting physicians Dr. Vera. patient was just discharged on March 21from the hospital following a diagnosis of pneumonia. Patient has a rather extensive medical history. Normally uses a wheelchair or a walker to get about. Chronic stable medical co nditions include, coronary artery disease, COPD in an ex-smoker, chronic fibromyalgia, GERD, hyperlipidemia, essential hypertension, osteoarthritis, hypothyroid, chronic multiple sclerosis, peripheral neuropathy lower extremity, chronic urinary incontinence. Patient at the end of January was here at the hospital was found to have a large abdominal mass invading surrounding structures and patient transferred to [facility]. at [facility]- patient did have a EGD that showed gastric ulcer. nonbleeding. also. To have a gastric mass. That showed smooth muscle on biopsy.patient was due to follow up at [facility] report has got an appointment to follow-up with Dr. Dominique oncologist locally here. Patient also follows with Dr. Lees who she has seen before. Patient was readmitted on March 23 and discharged on March 25. Had some dark stools. Was managed conservatively. Because it dropped her hemoglobin was given 2 units of blood. Patient now presents with 2 days of significant cough congestion with chest fever tired rundown some shortness of breath. Decreased appetite. Patient ruled in for influenza type B. Review of systems: GEN.: weak and tired, febrile EYES: None HEENT: None NECK: None RESPIRATORY: As above CARDIOVASCULAR: None GASTROINTESTINAL: [Intermittent dark stools GENITOURINARY: None MUSCULOSKELETAL: joint pain LYMPHATICS: None HEMATOLOGICAL: None PSYCHIATRY: None NEUROLOGICAL: does use a wheelchair or a walker Social history: lives alone. Has a friend Alvarado who spends most of the day with her. uses walker and/or wheelchair history of alcohol abuse last drink over 20 years ago. Also smoked a pack a day for close to 40 years up until very recently. Physical examination: VITAL SIGNS: 101.6, 78, 20, 82/44, 91% on 2 L GENERAL: Laying in bed, tired EYES: Pupils equal. Conjunctiva pale HEENT: External appearance of nose and ears normal, oral cavity grossly normal. NECK: JVD not raised; masses not palpable. HEART: First and second heart sounds are normal; no edema. LUNGS: Respiratory rate increased, decreased breath sounds. ABDOMEN: Soft, mild upper abdominal tenderness, no guarding or rigidity, liver spleen not palpable, no masses palpable. LYMPHATICS: No lymph nodes palpable in the axilla and neck. PSYCH: Alert and oriented x3; mood and affect normal. Investigations: White count 6.7 hemoglobin 7.1 it was 8.92 days ago potassium 2.816 creatinine 0.53 UA negative. Fecal occult stool positive, influenza type B PCR detected EKG tracing personally reviewed by me-was slightly reviewed by me shows some T- wave inversion in V4 to V6 and maybe 1 and aVL Chest x-ray film personally reviewed by me-unable to differentiate between acute on chronic changes previous testing: Abdominal ultrasound-possible cirrhosis, mildly thickened gallbladder wall, suspect gallstone, large complex mass temperature was centimeters in the mid abdomen Computed tomography scan abdomen-large partially cystic partially solid mass appears to rise from the great echo which was normal measuring 18 by then 0.7 x 1.2 cm. There is displacement of the stomach with luminal narrowing and ear obstruction. The mass appears to infiltrate into the adjacent duodenum. Assessment: -Acute pneumonitis from influenza type B. Patient has no sputum production. At this point doubt secondary infection. White count is normal. -acute GI bleed causing blood loss anemia with recent EGD at [facility] showing gastric ulcer. Last admission patient did require 2 units of blood. Since he was discharged 2 days ago patient again drop her hemoglobin. Given that patient's hypotensive and transfuse blood. -Llpfv-hkfelqhjl-cuhuiyzh mass, workup done at [facility].-biopsy showing smoothl muscle mass, due to follow-up with Dr. Pandya -Solitary gallstone, asymptomatic -Coronary artery disease -COPD in an ex-smoker -Chronic fibromyalgia -GERD -Hyperlipidemia -Essential hypertension -Primary osteoarthritis -Hypothyroid -Chronic multiple sclerosis -Peripheral neuropathy both the lower extremity -Chronic urinary incontinence -Chronic gait dysfunction uses a walker/wheelchair plan: patient be started on Tamiflu. hold off antibiotic currently. Transfuse blood. Other medications are to be reviewed. Care was discussed with the patient. Prognosis guarded. repeat CBC in the morning. Past Medical History Past Medical History: Coronary Artery Disease (CAD), Chest Pain / Angina, Heart Failure, COPD, Eye Disorder, Fibromyalgia, GERD/Reflux, Hyperlipidemia, Hypertension, Myocardial Infarction (IA), Musculoskeletal Disorder, Neurologic Disorder, Osteoarthritis (OA), Pneumonia, Respiratory Disorder, Skin Disorder, Thyroid Disorder, Vascular Disorder Additional Past Medical History / Comment(s): 11/2012 [place] with cardiac arrest/vtach, chronic respiratory failure-uses home O2 prn 2-3L/NC, tracheobronchitis, tricuspid regurgitation, multiple sclerosis, neuropathy bilateral legs/feet, chronic back pain, DDD, migraines, bilateral carpal tunnel syndrome, past L/R rib fractures, past L hip fracture with surgery, PUD with ulcer rupture with surgery, peritonitis, pancreatitis, IBS/ ulcerative colitis, chronic anemia, UTIs, urinary incontinence, endometriosis, hypothyroid, R cataract and L eye cataract forming again, PVD, L leg cellulitis, Last Myocardial Infarction Date:: 2012 History of Any Multi-Drug Resistant Organisms: ESBL Date of last positivie culture/infection: 02/18/2014 MDRO Source:: Blood and Urine E. coli ESBL Past Surgical History: AICD, Appendectomy, Heart Catheterization, Heart Catheterization With Stent, Orthopedic Surgery, Pacemaker Additional Past Surgical History / Comment(s): Cardioversion, Laparotomy for ruptured gastric ulcer, R foot fracture with surgery, L hip fracture with surgery-has plate and screw, EGD, colonoscopies with bening polypectomy. Past Anesthesia/Blood Transfusion Reactions: No Reported Reaction Additional Past Anesthesia/Blood Transfusion Reaction / Comment(s): Pt has received blood in past without reaction. Date of Last Stent Placement:: 11/2012 Type of Cardiac Device: Permanent Pacemaker, AICD Device Placement Date:: 2012 Past Psychological History: Anxiety, Bipolar, Depression, Panic Disorder Smoking Status: Former smoker Past Alcohol Use History: None Reported Past Drug Use History: None Reported - Past Family History Mother Family Medical History: Musculoskeletal Disorder Additional Family Medical History / Comment(s): MS Sister(s) Family Medical History: Myocardial Infarction ([place]) Additional Family Medical History / Comment(s): SISTER ALSO HAS MS Brother(s) Family Medical History: Musculoskeletal Disorder, Neurologic Disorder Additional Family Medical History / Comment(s): MS Father Additional Family Medical History / Comment(s): ETOH abuse, back surgery Medications and Allergies Home Medications Medication Instructions Recorded Confirmed Type Folic Acid 1 mg PO DAILY 04/08/14 03/28/19 History Primidone [Mysoline] 50 mg PO BID 04/12/15 03/28/19 History Albuterol Nebulized [Ventolin 2.5 mg INHALATION RT-Q6H PRN 04/13/15 03/28/19 History Nebulized] Thiamine [Vitamin B-1] 100 mg PO DAILY 04/13/15 03/28/19 History ALPRAZolam [Xanax] 0.25 mg PO TID 09/07/15 03/28/19 History oxyCODONE HCL/ACETAMINOPHEN 1 tab PO Q8H PRN 09/07/15 03/28/19 History [Oxycodone-Acetaminophen 5-325] ARIPiprazole [Abilify] 10 mg PO DAILY 03/11/17 03/28/19 History Baclofen [Lioresal] 10 mg PO BID 07/09/17 03/28/19 History Cholecalciferol (Vitamin D3) 2,000 unit PO DAILY 09/27/18 03/28/19 History [Vitamin D3] Ferrous Sulfate [Iron (65 MG 325 mg PO BID 09/27/18 03/28/19 History Elemental)] Levothyroxine Sodium [Synthroid] 100 mcg PO DAILY 09/27/18 03/28/19 History Atorvastatin [Lipitor] 40 mg PO DAILY #30 tab 09/28/18 03/28/19 Rx Amiodarone [Cordarone] 200 mg PO DAILY 02/06/19 03/28/19 History Isosorbide Mononitrate ER [Imdur] 30 mg PO DAILY 02/06/19 03/28/19 History Albuterol Sulfate [Proair Hfa] 2 puff INHALATION RT-Q6H PRN 03/16/19 03/28/19 History Cyanocobalamin (Vitamin B-12) 1,000 mcg PO DAILY 03/16/19 03/28/19 History [Vitamin B-12] Fluticasone/Salmeterol 1 puff INHALATION RT-BID 03/16/19 03/28/19 History [Fluticasone-Salmeterol 113-14] Omeprazole 40 mg PO BID 03/16/19 03/28/19 History Gabapentin [Neurontin] 300 mg PO TID 03/22/19 03/28/19 History Loperamide [Imodium] 2 mg PO DAILY PRN 03/22/19 03/28/19 History Allergies Allergy/AdvReac Type Severity Reaction Status Date / Time Penicillins Allergy Swelling Verified 03/22/19 17:24 Physical Exam Vitals: Vital Signs Temp Pulse Resp BP Pulse Ox 03/28/19 23:00 67 14 107/60 03/28/19 22:30 69 16 107/60 03/28/19 22:00 72 18 102/45 03/28/19 21:30 71 13 102/45 03/28/19 21:20 67 12 102/45 03/28/19 20:30 64 15 76/45 95 03/28/19 20:08 98.5 F 65 16 81/46 95 03/28/19 20:00 66 14 78/43 95 03/28/19 19:41 65 03/28/19 19:38 98.1 F 65 17 82/47 99 03/28/19 19:30 66 14 89/63 95 03/28/19 19:29 68 03/28/19 19:28 98.7 F 67 17 89/63 95 03/28/19 19:00 70 16 96/51 03/28/19 18:30 76 16 96/51 03/28/19 18:24 98.7 F 78 16 96/51 96 03/28/19 18:00 75 16 99/59 03/28/19 17:30 80 19 99/59 03/28/19 17:00 80 16 89/58 96 03/28/19 16:21 75 16 77/43 98 03/28/19 16:20 76 16 77/43 03/28/19 16:10 74 14 77/42 03/28/19 16:00 74 16 85/47 03/28/19 15:50 75 16 85/47 03/28/19 15:40 75 14 73/40 88 L 03/28/19 15:30 82/44 86 L 03/28/19 15:20 73/44 92 L 03/28/19 15:19 101.6 F H 78 20 82/44 91 L 03/28/19 15:13 87 L Intake and Output 03/28/19 03/28/19 03/29/19 14:59 22:59 06:59 Intake Total 0 310 Balance 0 310 Intake: Blood Product 0 310 Rc As-1 Unit 0 310 [id number] Other: Weight 58.967 kg Results CBC & Chem 7: 03/28/19 15:56 03/28/19 15:56 Labs: Abnormal Lab Results - Last 24 Hours (Table) 03/28/19 03/28/19 03/28/19 Range/Units 15:56 15:56 15:56 RBC 2.32 L (3.80-5.40) m/uL Hgb 7.1 L D (11.4-16.0) gm/dL Hct 22.0 L (34.0-46.0) % RDW 16.0 H (11.5-15.5) % Lymphocytes # 0.5 L (1.0-4.8) k/uL PT 14.0 H (9.0-12.0) sec INR 1.4 H (<1.2) APTT 30.9 H (22.0-30.0) sec Sodium 132 L (137-145) mmol/L Potassium 2.8 L (3.5-5.1) mmol/L Chloride 94 L (98-107) mmol/L Carbon Dioxide 36 H (22-30) mmol/L BUN 6 L (7-17) mg/dL Calcium 6.9 L (8.4-10.2) mg/dL Magnesium 1.4 L (1.6-2.3) mg/dL Total Protein 4.2 L (6.3-8.2) g/dL Albumin 1.9 L (3.5-5.0) g/dL Stool Occult Blood (Negative) Influenza Type B (PCR) (Not Detectd) Crossmatch 03/28/19 03/28/19 03/28/19 Range/Units 15:56 17:03 18:00 RBC (3.80-5.40) m/uL Hgb (11.4-16.0) gm/dL Hct (34.0-46.0) % RDW (11.5-15.5) % Lymphocytes # (1.0-4.8) k/uL PT (9.0-12.0) sec INR (<1.2) APTT (22.0-30.0) sec Sodium (137-145) mmol/L Potassium (3.5-5.1) mmol/L Chloride (98-107) mmol/L Carbon Dioxide (22-30) mmol/L BUN (7-17) mg/dL Calcium (8.4-10.2) mg/dL Magnesium (1.6-2.3) mg/dL Total Protein (6.3-8.2) g/dL Albumin (3.5-5.0) g/dL Stool Occult Blood Positive H (Negative) Influenza Type B (PCR) Detected H (Not Detectd) Crossmatch See Detail
[2019-03-29] MEDS ORDERED: VANCOMYCIN 1,000 MG in SODIUM CHLORIDE 0.9% 250 ML IVPB SCH (02:00)
[2019-03-29 03:42] LABS: Anisocytosis Slight; Basophils # (A) 0.2 k/uL (0-0.2); Basophils % (A) 2 %; Eosinophils % (A) 0 %; HCT 28.6 % (34.0-46.0); Hypochromasia Slight; Lymphocytes # (A) 0.7 k/uL (1.0-4.8); Lymphocytes % (A) 11 %; MCH 30.1 pg (25.0-35.0); MCHC 32.4 g/dL (31.0-37.0); Mean Platelet Volume 8.2; Monocytes # (A) 0.3 k/uL (0-1.0); Monocytes % (A) 5 %; Neutrophils # (A) 5.3 k/uL (1.3-7.7); Neutrophils % (A) 80 %; Platelet Count 148 k/uL (150-450); Poikilocytosis Slight; RBC 3.08 m/uL (3.80-5.40); RDW 16.3 % (11.5-15.5); WBC 6.6 k/uL (3.8-10.6)
[2019-03-29] MEDS: ALPRAZolam 0.25 MG TAB PO SCH ×4 (04:13→20:49)
[2019-03-29] MEDS: GABAPENTIN 300 MG CAP PO SCH ×4 (04:14→20:49)
[2019-03-29] MEDS: ACETAMINOPHEN TAB 325 MG TAB PO PRN ×2 (04:14→20:54)
[2019-03-29 04:18] LABS: HGB 9.3 gm/dL (11.4-16.0)
[2019-03-29] MEDS: FERROUS SULFATE 325 MG TAB PO SCH ×3 (07:12→20:49)
[2019-03-29] MEDS: BACLOFEN 10 MG TAB PO SCH ×3 (07:12→20:49)
[2019-03-29] MEDS: PRIMIDONE 50 MG TAB PO SCH ×3 (07:13→20:49)
[2019-03-29] MEDS: SYMBICORT 160-4.5 MCG INHALER INHALATION SCH ×3 (07:47→19:59)
[2019-03-29] MEDS: ALBUTEROL NEBULIZED 2.5 MG/3 ML INHALATION PRN (07:47)
[2019-03-29] MEDS: SODIUM CHLORIDE 0.9% 1,000 ML IV SCH ×3 (08:39→17:05)
[2019-03-29] MEDS ORDERED: PANTOPRAZOLE 40 MG/10 ML VIAL IV SCH (09:00)
[2019-03-29] MEDS: ATORVASTATIN 40 MG TAB PO SCH (09:14)
[2019-03-29] MEDS: oxyCODONE-APAP 5-325MG 1 EACH TAB PO PRN ×2 (09:15→17:10)
[2019-03-29] MEDS: FOLIC ACID 1 MG TAB PO SCH (09:15)
[2019-03-29] MEDS: THIAMINE 100 MG TAB PO SCH (09:15)
[2019-03-29] MEDS: CYANOCOBALAMIN 500 MCG TAB PO SCH (09:15)
[2019-03-29] MEDS: ISOSORBIDE MONONITRATE ER 30 MG TAB.ER.24H PO SCH (09:15)
[2019-03-29] MEDS: LEVOTHYROXINE 100 MCG TAB PO SCH (09:16)
[2019-03-29] MEDS: AMIODARONE 200 MG TAB PO SCH (09:16)
--- NOTE | 2019-03-29 10:49 | CDI ---
Documentation Clarification Form Date: 03/29/2019 10:24:22 AM From: Sandy Camacho RN CCDS Admit Date: 03/28/2019 06:11:00 PM Patient Name: Akiko Grimaldo Visit Number: [id number] Discharge Date: ATTENTION: The Clinical Documentation Specialists (CDI) and [facility] Coding Staff appreciate your assistance in clarifying documentation. Please respond to the clarification below the line at the bottom and electronically sign. The CDI & [facility] Coding staff will review the response and follow-up if needed. Please note: Queries are made part of the Legal Health Record. If you have any questions, please contact the author of this message via ITS. Dr. Adolfo [place] Heart Failure is mentioned in the H & P under past medical history History/Risk Factors: 63-year-old female presents to the ED for generalized weakness recent discharge for gi bleed. Admitted with Influenza Pneumonia and Gi bleed. Medical History Heart Failure: Angina; CAD; 11/2012 [place] with cardiac arrest/vtach. Clinical Indicators: VS/Pulse OX: 82/44 78 101.6 78 20 91% 2Lnc BNP: 1580 Echocardiogram Results: 09/27/2018 Left ventricular systolic function is mild moderately impaired with an EF between 40-45% Basal inferior LV wall motion is a kinetic. Chest X Ray: 03/28/2019 - Pulmonary interstitial fibrosis. There is evidence of some acute pneumonia right lung base with pleural reaction and atelectasis unchanged. No definite heart failure. Treatment: Imdur 30mg po daily, In your professional opinion, can you please clarify the acuity and type of CHF if known? * Acute on Chronic Systolic Heart Failure: * Chronic Systolic Heart Failure * Acute on Chronic Systolic & Diastolic Heart Failure: * Chronic Systolic Heart Failure * Unable to Determine * Other, please specify (Last Revision: July 2017) Possible chronic systolic heart failure EF 40-45%, MTDD
[2019-03-29] MEDS: ARIPiprazole 10 MG TAB PO SCH (13:22)
[2019-03-29] MEDS: OSELTAMIVIR 75 MG CAP PO SCH ×2 (13:22→20:49)
--- NOTE | 2019-03-29 14:05 | P.CNPUL ---
History of Present Illness Consult date: 03/29/19 Reason for consult: pneumonia History of present illness: 53-year-old female patient, history of COPD, coronary artery disease, hypertension, hyperlipidemia, hypothyroidism and previous is some multiple sclerosis with peripheral neuropathy involving the lower extremities. The patient also has a questionable history of malignancy with a gastric mass and she was supposed to follow with oncology in that regard. . Based on a CAT scan of the abdomen that was done in January 2019 the patient a large partial cystic/solid mass in the greater curvature of the stomach measuring 18 x 10 x 11.2 cm in size. She was also found to have some ascites She has had episodes of upper GI bleeding requiring brief hospitalization seen in our hospital. The patient came into the hospital because of increased dyspnea cough chest congestion and wheezing and she was complaining of generalized weakness. She denies having any fever or chills. Her white cell count is at 6.6 and hemoglobin was at 7.1 at time of admission. He and the level was 1580 and a t roponin was at 0.018. Urinalysis was negative. Influenza B screen by PCR was positive. The patient was started on Tamiflu. The chest x-ray showed bilateral pulmonary infiltrates and the patient has a pacemaker across the left anterior chest area. In terms of her cardiac history, the patient is known to have coronary artery disease and previous stent insertion in the RCA back in 2012 and she has history of ischemic cardiomyopathy and she has an AICD in place. She has had previous history of V. tach arrest in 2012. Her COPD is advanced. Based on the most his echocardiogram from March 2018, the patient had a impairment of the fungal with an ejection fraction of 40-45% along with infe rolateral wall and inferobasal wall hypokinesis and mild MR and TR. Review of Systems Constitutional: Reports fatigue, Reports poor appetite, Reports weakness Eyes: denies as per HPI, denies blurred vision, denies bulging eye, denies d ecreased vision, denies diplopia, denies discharge, denies dry eye, denies irritation, denies itching, denies pain, denies photophobia, denies loss of peripheral vision, denies loss of vision, denies tunnel vision/blind spots Ears: deny: decreased hearing, ear discharge, earache, tinnitus Ears, nose, mouth and throat: Denies headache, Denies sore throat Breasts: absent: as per HPI, change in shape, gynecomastia, masses, nipple discharge, pain, skin changes, swelling Cardiovascular: Reports decreased exercise tolerance, Reports dyspnea on exertion, Reports leg edema, Reports shortness of breath Respiratory: Reports cough, Reports excessive sputum, Reports home oxygen, Reports wheezing Gastrointestinal: Reports as per HPI, Reports melena Genitourinary: Reports as per HPI Menstruation: Reports as per HPI Musculoskeletal: Reports as per HPI, Reports limitation of motion, Reports muscle weakness, Reports myalgias Musculoskeletal: bilateral: ankle swelling, absent: ankle pain, ankle stiffness Integumentary: Reports as per HPI Neurological: Reports as per HPI Psychiatric: Reports as per HPI Endocrine: Reports fatigue Hematologic/Lymphatic: Reports as per HPI Allergic/Immunologic: Reports as per HPI Past Medical History Past Medical History: Coronary Artery Disease (CAD), Chest Pain / Angina, Heart Failure, COPD, Eye Disorder, Fibromyalgia, GERD/Reflux, Hyperlipidemia, Hypertension, Myocardial Infarction (AK), Musculoskeletal Disorder, Neurologic Disorder, Osteoarthritis (OA), Pneumonia, Respiratory Disorder, Skin Disorder, Thyroid Disorder, Vascular Disorder Additional Past Medical History / Comment(s): 11/2012 [place] with cardiac arrest/vtach, chronic respiratory failure-uses home O2 prn 2-3L/NC, tracheobronchitis, tricuspid regurgitation, multiple sclerosis, neuropathy bilateral legs/feet, chronic back pain, DDD, migraines, bilateral carpal tunnel syndrome, past L/R rib fractures, past L hip fracture with surgery, PUD with ulcer rupture with surgery, peritonitis, pancreatitis, IBS/ ulcerative colitis, chronic anemia, UTIs, urinary incontinence, endometriosis, hypothyroid, R cataract and L eye cataract forming again, PVD, L leg cellulitis, Last Myocardial Infarction Date:: 2012 History of Any Multi-Drug Resistant Organisms: ESBL Date of last positivie culture/infection: 02/18/2014 MDRO Source:: Blood and Urine E. coli ESBL Past Surgical History: AICD, Appendectomy, Heart Catheterization, Heart Catheterization With Stent, Orthopedic Surgery, Pacemaker Additional Past Surgical History / Comment(s): Cardioversion, Laparotomy for ruptured gastric ulcer, R foot fracture with surgery, L hip fracture with surgery-has plate and screw, EGD, colonoscopies with bening polypectomy. Past Anesthesia/Blood Transfusion Reactions: No Reported Reaction Additional Past Anesthesia/Blood Transfusion Reaction / Comment(s): Pt has received blood in past without reaction. Date of Last Stent Placement:: 11/2012 Type of Cardiac Device: Permanent Pacemaker, AICD Device Placement Date:: 2012 Past Psychological History: Anxiety, Bipolar, Depression, Panic Disorder Smoking Status: Former smoker Past Alcohol Use History: None Reported Past Drug Use History: None Reported - Past Family History Mother Family Medical History: Musculoskeletal Disorder Additional Family Medical History / Comment(s): MS Sister(s) Family Medical History: Myocardial Infarction (AK) Additional Family Medical History / Comment(s): SISTER ALSO HAS MS Brother(s) Family Medical History: Musculoskeletal Disorder, Neurologic Disorder Additional Family Medical History / Comment(s): MS Father Additional Family Medical History / Comment(s): ETOH abuse, back surgery Medications and Allergies Home Medications Medication Instructions Recorded Confirmed Type Folic Acid 1 mg PO DAILY 04/08/14 03/28/19 History Primidone [Mysoline] 50 mg PO BID 04/12/15 03/28/19 History Albuterol Nebulized [Ventolin 2.5 mg INHALATION RT-Q6H PRN 04/13/15 03/28/19 History Nebulized] Thiamine [Vitamin B-1] 100 mg PO DAILY 04/13/15 03/28/19 History ALPRAZolam [Xanax] 0.25 mg PO TID 09/07/15 03/28/19 History oxyCODONE HCL/ACETAMINOPHEN 1 tab PO Q8H PRN 09/07/15 03/28/19 History [Oxycodone-Acetaminophen 5-325] ARIPiprazole [Abilify] 10 mg PO DAILY 03/11/17 03/28/19 History Baclofen [Lioresal] 10 mg PO BID 07/09/17 03/28/19 History Cholecalciferol (Vitamin D3) 2,000 unit PO DAILY 09/27/18 03/28/19 History [Vitamin D3] Ferrous Sulfate [Iron (65 MG 325 mg PO BID 09/27/18 03/28/19 History Elemental)] Levothyroxine Sodium [Synthroid] 100 mcg PO DAILY 09/27/18 03/28/19 History Atorvastatin [Lipitor] 40 mg PO DAILY #30 tab 09/28/18 03/28/19 Rx Amiodarone [Cordarone] 200 mg PO DAILY 02/06/19 03/28/19 History Isosorbide Mononitrate ER [Imdur] 30 mg PO DAILY 02/06/19 03/28/19 History Albuterol Sulfate [Proair Hfa] 2 puff INHALATION RT-Q6H PRN 03/16/19 03/28/19 Hi story Cyanocobalamin (Vitamin B-12) 1,000 mcg PO DAILY 03/16/19 03/28/19 History [Vitamin B-12] Fluticasone/Salmeterol 1 puff INHALATION RT-BID 03/16/19 03/28/19 History [Fluticasone-Salmeterol 113-14] Omeprazole 40 mg PO BID 03/16/19 03/28/19 History Gabapentin [Neurontin] 300 mg PO TID 03/22/19 03/28/19 History Loperamide [Imodium] 2 mg PO DAILY PRN 03/22/19 03/28/19 History Allergies Allergy/AdvReac Type Severity Reaction Status Date / Time Penicillins Allergy Swelling Verified 03/22/19 17:24 Physical Exam Vitals: Vital Signs Temp Pulse Pulse Resp BP BP Pulse Ox 03/29/19 08:00 97.9 F 58 L 78 20 118/58 89 L 03/29/19 07:50 63 03/29/19 05:00 61 12 03/29/19 04:01 62 16 96/57 03/29/19 03:00 64 15 98/62 03/29/19 02:30 63 14 98/62 03/29/19 02:00 64 13 83/52 03/29/19 01:30 63 19 83/52 03/29/19 01:00 60 12 90/56 03/29/19 00:30 65 12 90/56 03/29/19 00:12 67 14 90/56 03/29/19 00:00 65 13 94/52 03/28/19 23:30 65 14 94/52 03/28/19 23:00 67 14 107/60 03/28/19 22:30 69 16 107/60 03/28/19 22:00 72 18 102/45 03/28/19 21:30 71 13 102/45 03/28/19 21:20 67 12 102/45 03/28/19 20:30 64 15 76/45 95 03/28/19 20:08 98.5 F 65 16 81/46 95 03/28/19 20:00 66 14 78/43 95 03/28/19 19:41 65 03/28/19 19:38 98.1 F 65 17 82/47 99 03/28/19 19:30 66 14 89/63 95 03/28/19 19:29 68 03/28/19 19:28 98.7 F 67 17 89/63 95 03/28/19 19:00 70 16 96/51 03/28/19 18:30 76 16 96/51 03/28/19 18:24 98.7 F 78 16 96/51 96 03/28/19 18:00 75 16 99/59 03/28/19 17:30 80 19 99/59 03/28/19 17:00 80 16 89/58 96 03/28/19 16:21 75 16 77/43 98 03/28/19 16:20 76 16 77/43 03/28/19 16:10 74 14 77/42 03/28/19 16:00 74 16 85/47 03/28/19 15:50 75 16 85/47 03/28/19 15:40 75 14 73/40 88 L 03/28/19 15:30 82/44 86 L 03/28/19 15:20 73/44 92 L 03/28/19 15:19 101.6 F H 78 20 82/44 91 L 03/28/19 15:13 87 L Intake and Output 03/28/19 03/29/19 03/29/19 22:59 06:59 14:59 Intake Total 0 310 222 Balance 0 310 222 Intake: Oral 222 Blood Product 0 310 Rc As-1 Unit 0 310 [id number] Other: Voiding Method Incontinent # Bowel Movements 2 Weight 58.967 kg comfortable no acute distress currently on oxygen at 3 L Head exam was generally normal. There was no scleral icterus or corneal arcus. Mucous membranes were moist. Neck was supple and without jugular venous distension, thyromegaly, or carotid bruits. Carotids were easily palpable bilaterally. There was no adenopathy. Lungs sounds are diminished the patient has thoracic kyphosis and some mild degree of scoliosis and crackles in lung bases bilaterally with scattered rh onchi and scattered expiratory wheezes heard throughout the lung perea bilaterally. Cardiac exam revealed the PMI to be normally situated and sized. The rhythm was regular and no extrasystoles were noted during several minutes of auscultation. The first and second heart sounds were normal and physiologic splitting of the second heart sound was noted. There were no murmurs, rubs, clicks, or gallop s.The patient is a pacemaker pocket over the left anterior chest Abdominal exam revealed normal bowel sounds. The abdomen was soft, non-tender, and without masses, organomegaly, or appreciable enlargement of the abdominal aorta. Extremities revealed +1 edema and there is no cyanosis or clubbing. Neurologically awake and alert and is no focal neurological deficit. Results - Laboratory Findings CBC and BMP: 03/29/19 03:25 03/28/19 15:56 ABG WBC 6.6 k/uL (3.8-10.6) 03/29/19 03:25 RBC 3.08 m/uL (3.80-5.40) L 03/29/19 03:25 Hgb 9.3 gm/dL (11.4-16.0) L D 03/29/19 03:25 Hct 28.6 % (34.0-46.0) L 03/29/19 03:25 MCV 93.0 fL (80.0-100.0) 03/29/19 03:25 MCH 30.1 pg (25.0-35.0) 03/29/19 03:25 MCHC 32.4 g/dL (31.0-37.0) 03/29/19 03:25 RDW 16.3 % (11.5-15.5) H 03/29/19 03:25 Plt Count 148 k/uL (150-450) L 03/29/19 03:25 Neutrophils % 80 % 03/29/19 03:25 Lymphocytes % 11 % 03/29/19 03:25 Monocytes % 5 % 03/29/19 03:25 Eosinophils % 0 % 03/29/19 03:25 Basophils % 2 % 03/29/19 03:25 Neutrophils # 5.3 k/uL (1.3-7.7) 03/29/19 03:25 Lymphocytes # 0.7 k/uL (1.0-4.8) L 03/29/19 03:25 Monocytes # 0.3 k/uL (0-1.0) 03/29/19 03:25 Eosinophils # 0.0 k/uL (0-0.7) 03/29/19 03:25 Basophils # 0.2 k/uL (0-0.2) 03/29/19 03:25 Hypochromasia Slight 03/29/19 03:25 Poikilocytosis Slight 03/29/19 03:25 Anisocytosis Slight 03/29/19 03:25 PT 14.0 sec (9.0-12.0) H 03/28/19 15:56 INR 1.4 (<1.2) H 03/28/19 15:56 APTT 30.9 sec (22.0-30.0) H 03/28/19 15:56 Sodium 132 mmol/L (137-145) L 03/28/19 15:56 Potassium 2.8 mmol/L (3.5-5.1) L 03/28/19 15:56 Chloride 94 mmol/L (98-107) L 03/28/19 15:56 Carbon Dioxide 36 mmol/L (22-30) H 03/28/19 15:56 Anion Gap 2 mmol/L 03/28/19 15:56 BUN 6 mg/dL (7-17) L 03/28/19 15:56 Creatinine 0.53 mg/dL (0.52-1.04) 03/28/19 15:56 Est GFR (CKD-EPI)AfAm >90 (>60 ml/min/1.73 sqM) 03/28/19 15:56 Est GFR (CKD-EPI)NonAf >90 (>60 ml/min/1.73 sqM) 03/28/19 15:56 Glucose 96 mg/dL (74-99) 03/28/19 15:56 Plasma Lactic Acid Zaki 1.8 mmol/L (0.7-2.0) 03/28/19 15:56 Calcium 6.9 mg/dL (8.4-10.2) L 03/28/19 15:56 Magnesium 1.4 mg/dL (1.6-2.3) L 03/28/19 15:56 Total Bilirubin 0.4 mg/dL (0.2-1.3) 03/28/19 15:56 AST 30 U/L (14-36) 03/28/19 15:56 ALT 12 U/L (4-34) 03/28/19 15:56 Alkaline Phosphatase 42 U/L (38-126) 03/28/19 15:56 Creatine Kinase 88 U/L (30-135) 03/28/19 15:56 Troponin I 0.018 ng/mL (0.000-0.034) 03/28/19 15:56 NT-Pro-B Natriuret Pep 1580 pg/mL 03/28/19 15:56 Total Protein 4.2 g/dL (6.3-8.2) L 03/28/19 15:56 Albumin 1.9 g/dL (3.5-5.0) L 03/28/19 15:56 Urine Color Light Yellow 03/28/19 21:43 Urine Appearance Clear (Clear) 03/28/19 21:43 Urine pH 6.5 (5.0-8.0) 03/28/19 21:43 Ur Specific [place] 1.002 (1.001-1.035) 03/28/19 21:43 Urine Protein Negative (Negative) 03/28/19 21:43 Urine Glucose (UA) Negative (Negative) 03/28/19 21:43 Urine Ketones Negative (Negative) 03/28/19 21:43 Urine Blood Negative (Negative) 03/28/19 21:43 Urine Nitrite Negative (Negative) 03/28/19 21:43 Urine Bilirubin Negative (Negative) 03/28/19 21:43 Urine Urobilinogen <2.0 mg/dL (<2.0) 03/28/19 21:43 Ur Leukocyte Esterase Negative (Negative) 03/28/19 21:43 Stool Occult Blood Positive (Negative) H 03/28/19 18:00 Influenza Type A RNA Not Detected (Not Detectd) 03/28/19 17:03 Influenza Type B (PCR) Detected (Not Detectd) H 03/28/19 17:03 PT/INR, D-dimer PT 14.0 sec (9.0-12.0) H 03/28/19 15:56 INR 1.4 (<1.2) H 03/28/19 15:56 Abnormal lab findings: Abnormal Labs 03/28/19 03/28/19 03/28/19 15:56 15:56 15:56 RBC 2.32 L Hgb 7.1 L D Hct 22.0 L RDW 16.0 H Plt Count Lymphocytes # 0.5 L PT 14.0 H INR 1.4 H APTT 30.9 H Sodium 132 L Potassium 2.8 L Chloride 94 L Carbon Dioxide 36 H BUN 6 L Calcium 6.9 L Magnesium 1.4 L Total Protein 4.2 L Albumin 1.9 L Stool Occult Blood Influenza Type B (PCR) Crossmatch 03/28/19 03/28/19 03/28/19 15:56 17:03 18:00 RBC Hgb Hct RDW Plt Count Lymphocytes # PT INR APTT Sodium Potassium Chloride Carbon Dioxide BUN Calcium Magnesium Total Protein Albumin Stool Occult Blood Positive H Influenza Type B (PCR) Detected H Crossmatch See Detail 03/29/19 03:25 RBC 3.08 L Hgb 9.3 L D Hct 28.6 L RDW 16.3 H Plt Count 148 L Lymphocytes # 0.7 L PT INR APTT Sodium Potassium Chloride Carbon Dioxide BUN Calcium Magnesium Total Protein Albumin Stool Occult Blood Influenza Type B (PCR) Crossmatch - Diagnostic Findings Chest x-ray: image reviewed Assessment and Plan Plan: 1 acute bilateral pneumonia secondary influenza B 2 acute on chronic hypoxic respiratory failure currently on 3 L about 2 by nasal cannula and the patient is at 2 L at home at baseline 3 acute COPD exacerbation secondary influenza B pneumonia 4 fever with a T-max of 101.6 currently afebrile 5 generalized weakness secondary to above 6 Known history of coronary artery disease with previous coronary intervention stenting 7 known history of a gastric mass, likely benign and the malignant nature has not been established yet and the patient has had previous bouts of upper GI bleeding 8 chronic anemia with possibility of chronic blood loss anemia secondary to a gastric mass and ongoing bleed 9 CHF with ischemic cardiomyopathy and ejection fraction of 40-45% and the patient has an AICD in place 10 history of multiple sclerosis 11 history of peripheral neuropathy 12 migraines 13 osteoarthritis 14 hypothyroidism 15 history of V. tach related cardiac arrest 16 thoracic kyphosis and mild degree of scoliosis 17 hypertension 18 ulcerative colitis/irritable bowel syndrome along with previous history of pancreatitis 19 peripheral vascular disease 20 and a 21 chronic lower extremity edema Plan Agree on the current coverage. The patient needs to be on Levaquin in addition to Tamiflu. Put the patient IV Solu-Medrol 40 mg every 6 hours. Continue the DuoNeb nebulized treatments around the clock. Continue Symbicort. Repeat chest x-ray in the morning. Blood work was reviewed. We'll continue to follow.
[2019-03-29 15:28] LABS: African American GFR (CKD) >90 (>60 ml/min/1.73 sqM); Anion Gap 1 mmol/L; Blood Urea Nitrogen 8 mg/dL (7-17); Calcium 7.1 mg/dL (8.4-10.2); Carbon Dioxide 35 mmol/L (22-30); Chloride 100 mmol/L (98-107); Glucose 99 mg/dL (74-99); Non-African American GFR(CKD) >90 (>60 ml/min/1.73 sqM); Potassium 3.1 mmol/L (3.5-5.1); Sodium 136 mmol/L (137-145)
[2019-03-29] MEDS: IPRATROPIUM-ALBUTEROL 3 ML NEB INHALATION SCH ×2 (16:14→19:57)
[2019-03-29] MEDS ORDERED: POTASSIUM CHLORIDE ER 20 MEQ TAB.ER PO STA (17:02)
[2019-03-29] MEDS: LEVOFLOXACIN 750 MG TAB PO SCH (17:06)
[2019-03-29] MEDS: methylPREDNISolone SOD SUCCI 40 MG/ML 1 ML VIAL IV SCH ×2 (17:06→23:14)
--- NOTE | 2019-03-29 21:58 | P.CONS ---
History of Present Illness - Reason for Consult Consult date: 03/29/19 GI bleed Requesting physician: Adolfo Bay - Chief Complaint Shortness of breath - History of Present Illness 63-year-old female with a medical history significant for peripheral neuropathy, hypothyroidism, osteoarthritis, hypertension, hyperlipidemia, fibromyalgia, [employer] D, coronary artery disease and urinary incontinence with a recent admission to the hospital for treatment of pneumonia, who presented back to the hospital due to feeling unwell and short of breath. The patient tested positive for influenza be and is currently receiving treatment. She also has a known history of a gastric mass for which she followed up at [facility] and is scheduled to follow up locally with oncology for further treatment. Hemoglobin on presentation 7.1 with stool testing positive for occult blood subsequently improved to 9.3 after transfusion. The patient is currently denying any signs or symptoms of GI bleed with no hematochezia or melena reported. Review of Systems REVIEW OF SYSTEMS: CONSTITUTIONAL: Denies any fevers, chills, but is reporting fatigue. CARDIOVASCULAR: Denies any chest pain, palpitations high or low blood pressures RESPIRATORY: Denies any shortness of breath, hemoptysis or cough. GENITOURINARY: No dysuria or hematuria but suffers from chronic urinary incontinence. MUSCULOSKELETAL: No focal weakness reported. SKIN: Denies any new rashes or lesions, jaundice or pallor. PSYCHIATRIC: Denies any depression or anxiety. NEUROLOGY: Denies headache, denies any new focal deficits. EARS/NOSE/THROAT: No recent hearing change, congestion, nasal discharge or sore throat. EYES: No pain in eyes, discharge or change in vision. GASTROINTESTINAL: As per HPI. Past Medical History Past Medical History: Coronary Artery Disease (CAD), Chest Pain / Angina, Heart Failure, COPD, Eye Disorder, Fibromyalgia, GERD/Reflux, Hyperlipidemia, Hyperten william, Myocardial Infarction ([place]), Musculoskeletal Disorder, Neurologic Disorder, Osteoarthritis (OA), Pneumonia, Respiratory Disorder, Skin Disorder, Thyroid Disorder, Vascular Disorder Additional Past Medical History / Comment(s): 11/2012 [place] with cardiac arrest/vtach, chronic respiratory failure-uses home O2 prn 2-3L/NC, tracheobronchitis, tricuspid regurgitation, multiple sclerosis, neuropathy bilateral legs/feet, chronic back pain, DDD, migraines, bilateral carpal tunnel syndrome, past L/R rib fractures, past L hip fracture with surgery, PUD with ulcer rupture with surgery, peritonitis, pancreatitis, IBS/ ulcerative colitis, chronic anemia, UTIs, urinary incontinence, endometriosis, hypothyroid, R cataract and L eye cataract forming again, PVD, L leg cellulitis, Last Myocardial Infarction Date:: 2012 History of Any Multi-Drug Resistant Organisms: ESBL Year Discovered:: 02/18/2014 MDRO Source:: Blood and Urine E. coli ESBL Past Surgical History: AICD, Appendectomy, Heart Catheterization, Heart Catheterization With Stent, Orthopedic Surgery, Pacemaker Additional Past Surgical History / Comment(s): Cardioversion, Laparotomy for ruptured gastric ulcer, R foot fracture with surgery, L hip fracture with surger y-has plate and screw, EGD, colonoscopies with bening polypectomy. Past Anesthesia/Blood Transfusion Reactions: No Reported Reaction Additional Past Anesthesia/Blood Transfusion Reaction / Comm: Pt has received blood in past without reaction. Date of Last Stent Placement:: 11/2012 Type of Cardiac Device: Permanent Pacemaker, AICD Device Placement Date:: 2012 Past Psychological History: Anxiety, Bipolar, Depression, Panic Disorder Smoking Status: Former smoker Past Alcohol Use History: None Reported Past Drug Use History: None Reported - Past Family History Mother Family Medical History: Musculoskeletal Disorder Additional Family Medical History / Comment(s): MS Sister(s) Family Medical History: Myocardial Infarction ([place]) Additional Family Medical History / Comment(s): SISTER ALSO HAS MS Brother(s) Family Medical History: Musculoskeletal Disorder, Neurologic Disorder Additional Family Medical History / Comment(s): MS Father Additional Family Medical History / Comment(s): ETOH abuse, back surgery Medications and Allergies Home Medications Medication Instructions Recorded Confirmed Type Folic Acid 1 mg PO DAILY 04/08/14 03/28/19 History Primidone [Mysoline] 50 mg PO BID 04/12/15 03/28/19 History Albuterol Nebulized [Ventolin 2.5 mg INHALATION RT-Q6H PRN 04/13/15 03/28/19 History Nebulized] Thiamine [Vitamin B-1] 100 mg PO DAILY 04/13/15 03/28/19 History ALPRAZolam [Xanax] 0.25 mg PO TID 09/07/15 03/28/19 History oxyCODONE HCL/ACETAMINOPHEN 1 tab PO Q8H PRN 09/07/15 03/28/19 History [Oxycodone-Acetaminophen 5-325] ARIPiprazole [Abilify] 10 mg PO DAILY 03/11/17 03/28/19 History Baclofen [Lioresal] 10 mg PO BID 07/09/17 03/28/19 History Cholecalciferol (Vitamin D3) 2,000 unit PO DAILY 09/27/18 03/28/19 History [Vitamin D3] Ferrous Sulfate [Iron (65 MG 325 mg PO BID 09/27/18 03/28/19 History Elemental)] Levothyroxine Sodium [Synthroid] 100 mcg PO DAILY 09/27/18 03/28/19 History Atorvastatin [Lipitor] 40 mg PO DAILY #30 tab 09/28/18 03/28/19 Rx Amiodarone [Cordarone] 200 mg PO DAILY 02/06/19 03/28/19 History Isosorbide Mononitrate ER [Imdur] 30 mg PO DAILY 02/06/19 03/28/19 History Albuterol Sulfate [Proair Hfa] 2 puff INHALATION RT-Q6H PRN 03/16/19 03/28/19 History Cyanocobalamin (Vitamin B-12) 1,000 mcg PO DAILY 03/16/19 03/28/19 History [Vitamin B-12] Fluticasone/Salmeterol 1 puff INHALATION RT-BID 03/16/19 03/28/19 History [Fluticasone-Salmeterol 113-14] Omeprazole 40 mg PO BID 03/16/19 03/28/19 History Gabapentin [Neurontin] 300 mg PO TID 03/22/19 03/28/19 History Loperamide [Imodium] 2 mg PO DAILY PRN 03/22/19 03/28/19 History Allergies Allergy/AdvReac Type Severity Reaction Status Date / Time Penicillins Allergy Swelling Verified 03/22/19 17:24 Physical Exam Vitals: Vital Signs Temp Pulse Pulse Resp BP BP Pulse Ox 03/29/19 16:26 68 03/29/19 16:15 66 03/29/19 12:00 97.8 F 72 20 115/59 96 03/29/19 08:00 97.9 F 58 L 78 20 118/58 89 L 03/29/19 07:50 63 03/29/19 05:00 61 12 03/29/19 04:01 62 16 96/57 03/29/19 03:00 64 15 98/62 03/29/19 02:30 63 14 98/62 03/29/19 02:00 64 13 83/52 03/29/19 01:30 63 19 83/52 03/29/19 01:00 60 12 90/56 03/29/19 00:30 65 12 90/56 03/29/19 00:12 67 14 90/56 03/29/19 00:00 65 13 94/52 03/28/19 23:30 65 14 94/52 03/28/19 23:00 67 14 107/60 03/28/19 22:30 69 16 107/60 03/28/19 22:00 72 18 102/45 03/28/19 21:30 71 13 102/45 03/28/19 21:20 67 12 102/45 03/28/19 20:30 64 15 76/45 95 03/28/19 20:08 98.5 F 65 16 81/46 95 03/28/19 20:00 66 14 78/43 95 03/28/19 19:41 65 03/28/19 19:38 98.1 F 65 17 82/47 99 03/28/19 19:30 66 14 89/63 95 03/28/19 19:29 68 03/28/19 19:28 98.7 F 67 17 89/63 95 03/28/19 19:00 70 16 96/51 03/28/19 18:30 76 16 96/51 03/28/19 18:24 98.7 F 78 16 96/51 96 03/28/19 18:00 75 16 99/59 03/28/19 17:30 80 19 99/59 03/28/19 17:00 80 16 89/58 96 Intake and Output 03/29/19 03/29/19 03/29/19 06:59 14:59 22:59 Intake Total 310 444 Balance 310 444 Intake: Oral 444 Blood Product 310 Rc As-1 Unit 310 [id number] Other: Voiding Method Incontinent # Voids 1 # Bowel Movements 2 2 On physical examination, patient appears comfortable in no apparent distress. HEAD: Normocephalic, atraumatic. EYES: No scleral icterus. No conjunctival injection. MOUTH: No lesions, tongue midline. NECK: Trachea midline, no gross abnormalities. CHEST: Decreased air entry in all lung perea with no wheezing appreciated. HEART: S1-S2 appreciated. ABDOMEN: Soft, obese. Bowel sounds are positive. No organomegaly. No guarding or rigidity. EXTREMITIES: No pedal edema. SKIN: No rashes, no jaundice. NEUROLOGIC: Alert and oriented x3. Results CBC & Chem 7: 03/29/19 03:25 03/29/19 14:50 Labs: Abnormal Lab Results - Last 24 Hours (Table) 03/28/19 03/28/19 03/28/19 Range/Units 15:56 15:56 15:56 RBC 2.32 L (3.80-5.40) m/uL Hgb 7.1 L D (11.4-16.0) gm/dL Hct 22.0 L (34.0-46.0) % RDW 16.0 H (11.5-15.5) % Plt Count (150-450) k/uL Lymphocytes # 0.5 L (1.0-4.8) k/uL PT 14.0 H (9.0-12.0) sec INR 1.4 H (<1.2) APTT 30.9 H (22.0-30.0) sec Sodium (137-145) mmol/L Potassium (3.5-5.1) mmol/L Carbon Dioxide (22-30) mmol/L Calcium (8.4-10.2) mg/dL Stool Occult Blood (Negative) Influenza Type B (PCR) (Not Detectd) Crossmatch See Detail 03/28/19 03/28/19 03/29/19 Range/Units 17:03 18:00 03:25 RBC 3.08 L (3.80-5.40) m/uL Hgb 9.3 L D (11.4-16.0) gm/dL Hct 28.6 L (34.0-46.0) % RDW 16.3 H (11.5-15.5) % Plt Count 148 L (150-450) k/uL Lymphocytes # 0.7 L (1.0-4.8) k/uL PT (9.0-12.0) sec INR (<1.2) APTT (22.0-30.0) sec Sodium (137-145) mmol/L Potassium (3.5-5.1) mmol/L Carbon Dioxide (22-30) mmol/L Calcium (8.4-10.2) mg/dL Stool Occult Blood Positive H (Negative) Influenza Type B (PCR) Detected H (Not Detectd) Crossmatch 03/29/19 Range/Units 14:50 RBC (3.80-5.40) m/uL Hgb (11.4-16.0) gm/dL Hct (34.0-46.0) % RDW (11.5-15.5) % Plt Count (150-450) k/uL Lymphocytes # (1.0-4.8) k/uL PT (9.0-12.0) sec INR (<1.2) APTT (22.0-30.0) sec Sodium 136 L (137-145) mmol/L Potassium 3.1 L (3.5-5.1) mmol/L Carbon Dioxide 35 H (22-30) mmol/L Calcium 7.1 L (8.4-10.2) mg/dL Stool Occult Blood (Negative) Influenza Type B (PCR) (Not Detectd) Crossmatch Abdominal x-ray: report reviewed (No acute findings on abdominal x-ray) Assessment and Plan (1) Stool guaiac positive Narrative/Plan: 63-year-old female with multiple medical comorbidities recently hospitalized for treatment of pneumonia presented back due to weakness and shortness of breath found to test positive for influenza the. Currently the patient is receiving treatment with Tamiflu and supportive care. The patient was also found to be anemic which is chronic in nature and had stool testing which is positive for occult blood. She denies any signs or symptoms of GI bleeding. She does have a known gastric mass which will require definitive therapy and has plans to follow up after discharge with the oncology service. Current Visit: Yes Status: Acute Code(s): R19.5 - OTHER FECAL ABNORMALITIES SNOMED Code(s): 85962962 (2) Abdominal mass Current Visit: No Status: Acute Code(s): R19.00 - INTRA-ABD AND PELVIC SWELLING, MASS AND LUMP, UNSP SITE SNOMED Code(s): 916414895 Plan: Supportive care Okay for diet Continue to monitor hemoglobin and hematocrit and transfuse as needed Continue current management of pneumonia/plan: No plans for endoscopic evaluation at this time, however would recommend patient be maintained on Protonix 40 mg twice daily until definitive measures can be taken for treatment of gastric mass Thank you for allowing us to participate in the care of the patient, the GI service will stand by, please call us back with any questions or concerns
[2019-03-29] MEDS: IPRATROPIUM-ALBUTEROL 3 ML NEB INHALATION PRN (23:35)
--- NOTE | 2019-03-29 23:39 | P.PN ---
Progress Note - Text Progress Note Date: 03/29/19 Chief Complaint: Cough and congestion Interval history: This is a 63-year-old patient who follows with visiting physicians Dr. Vera. patient was just discharged on March 21from the hospital following a diagnosis of pneumonia. Patient has a rather extensive medical history. Normally uses a wheelchair or a walker to get about. Chronic stable medical conditions include, coronary artery disease, COPD in an ex-smoker, chronic fibromyalgia, GERD, hyperlipidemia, essential hypertension, osteoarthritis, hypothyroid, chronic multiple sclerosis, peripheral neuropathy lower extremity, chronic urinary incontinence. Patient at the end of January was here at the hospital was found to have a large abdominal mass invading surrounding structures and patient transferred to [facility]. at [facility]- patient did have a EGD that showed gastric ulcer. nonbleeding. also. To have a gastric mass. That showed smooth muscle on biopsy.patient was due to follow up at [facility] report has got an appointment to follow-up with Dr. Dominique oncologist locally here. Patient also follows with Dr. Lees who she has seen before. Patient was readmitted on March 23 and discharged on March 25. Had some dark stools. Was managed conservatively. Because it dropped her hemoglobin was given 2 units of blood. Patient now presents with 2 days of significant cough congestion with chest fever tired rundown some shortness of breath. Decreased appetite. Patient ruled in for influenza type B. Also to drop in hemoglobin from 2 days ago. Given another unit of blood Today-sitting up in bed. Chronic cough. No fever. Tired. Did tolerate some d iet. On Tamiflu. Review of systems: Was done for constitutional, cardiovascular, GI, pulmonary. relevant finding as above Active Medications Acetaminophen (Tylenol Tab) 650 mg PO Q6HR PRN PRN Reason: Mild Pain or Fever > 100.5 Last Admin: 03/29/19 20:54 Dose: 650 mg Documented by: Albuterol/Ipratropium (Duoneb 0.5 Mg-3 Mg/3 Ml Soln) 3 ml INHALATION RT-QID SID Last Admin: 03/29/19 19:57 Dose: 3 ml Documented by: Albuterol/Ipratropium (Duoneb 0.5 Mg-3 Mg/3 Ml Soln) 3 ml INHALATION RT-Q2H PRN PRN Reason: Shortness Of Breath Or Wheezing Last Admin: 03/29/19 23:35 Dose: 3 ml Documented by: Alprazolam (Xanax) 0.25 mg PO TID [facility] Last Admin: 03/29/19 20:49 Dose: 0.25 mg Documented by: Amiodarone HCl (Cordarone) 200 mg PO DAILY [facility] Last Admin: 03/29/19 09:16 Dose: 200 mg Documented by: Aripiprazole (Abilify) 10 mg PO DAILY [facility] Last Admin: 03/29/19 13:22 Dose: 10 mg Documented by: Atorvastatin Calcium (Lipitor) 40 mg PO DAILY [facility] Last Admin: 03/29/19 09:14 Dose: 40 mg Documented by: Baclofen (Lioresal) 10 mg PO BID [facility] Last Admin: 03/29/19 20:49 Dose: 10 mg Documented by: Budesonide/Formoterol Fumarate (Symbicort 160-4.5 Mcg Inhaler) 1 puff INHALATION RT-BID [facility] Last Admin: 03/29/19 19:59 Dose: Not Given Documented by: Cyanocobalamin (Vitamin B-12) 1,000 mcg PO DAILY [facility] Last Admin: 03/29/19 09:15 Dose: 1,000 mcg Documented by: Ferrous Sulfate (Feosol) 325 mg PO BID [facility] Last Admin: 03/29/19 20:49 Dose: 325 mg Documented by: Folic Acid (Folic Acid) 1 mg PO DAILY [facility] Last Admin: 03/29/19 09:15 Dose: 1 mg Documented by: Gabapentin (Neurontin) 300 mg PO TID [facility] Last Admin: 03/29/19 20:49 Dose: 300 mg Documented by: Sodium Chloride (Saline 0.9%) 1,000 mls @ 120 mls/hr IV .Q8H20M [facility] Last Admin: 03/29/19 17:05 Dose: 120 mls/hr Documented by: Isosorbide Mononitrate (Imdur) 30 mg PO DAILY [facility] Last Admin: 03/29/19 09:15 Dose: 30 mg Documented by: Levofloxacin (Levaquin) 750 mg PO Q24H [facility] Last Admin: 03/29/19 17:06 Dose: 750 mg Documented by: Levothyroxine Sodium (Synthroid) 100 mcg PO DAILY@0630 [facility] Last Admin: 03/29/19 09:16 Dose: 100 mcg Documented by: Loperamide HCl (Imodium) 2 mg PO DAILY PRN PRN Reason: Diarrhea Methylprednisolone Sodium Succinate (Solu-Medrol) 40 mg IV Q8HR [facility] Last Admin: 03/29/19 23:14 Dose: 40 mg Documented by: Naloxone HCl (Narcan) 0.2 mg IV Q2M PRN PRN Reason: Opioid Reversal Ondansetron HCl (Zofran) 4 mg IVP Q8HR PRN PRN Reason: Nausea And Vomiting Oseltamivir Phosphate (Tamiflu) 75 mg PO Q12HR [facility] Stop: 04/02/19 21:01 Last Admin: 03/29/19 20:49 Dose: 75 mg Documented by: Oxycodone/Acetaminophen (Percocet 5-325) 1 each PO Q8H PRN PRN Reason: Pain Last Admin: 03/29/19 17:10 Dose: 1 each Documented by: Pantoprazole Sodium (Protonix) 40 mg IV BID [facility] Primidone (Mysoline) 50 mg PO BID [facility] Last Admin: 03/29/19 20:49 Dose: 50 mg Documented by: Thiamine HCl (Vitamin B-1) 100 mg PO DAILY [facility] Last Admin: 03/29/19 09:15 Dose: 100 mg Documented by: Physical examination: VITAL SIGNS: 97.9, 78, 20, 11 8/58, repeat 96% on 3 L GENERAL: Laying in bed, tired, weak EYES: Pupils equal. Conjunctiva pale HEENT: External appearance of nose and ears normal, oral cavity grossly normal. NECK: JVD not raised; masses not palpable. HEART: First and second heart sounds are normal; no edema. LUNGS: Respiratory rate increased, decreased breath sounds. Bronchial breathing on the right side posteriorly ABDOMEN: Soft, mild upper abdominal tenderness, no guarding or rigidity, liver spleen not palpable, no masses palpable. LYMPHATICS: No lymph nodes palpable in the axilla and neck. PSYCH: Alert and oriented x3; mood and affect normal. Investigations: White count 6.6 hemoglobin 9.3 potassium 3.1 creatinine 0.5 to Previous testing White count 6.7 hemoglobin 7.1 it was 8.92 days ago potassium 2.816 creatinine 0.53 UA negative. Fecal occult stool positive, influenza type B PCR detected EKG tracing personally reviewed by me-was slightly reviewed by me shows some T- wave inversion in V4 to V6 and maybe 1 and aVL Chest x-ray film personally reviewed by me-unable to differentiate between acute on chronic changes previous testing: Abdominal ultrasound-possible cirrhosis, mildly thickened gallbladder wall, suspect gallstone, large complex mass temperature was centimeters in the mid abdomen Computed tomography scan abdomen-large partially cystic partially solid mass appears to rise from the great echo which was normal measuring 18 by then 0.7 x 1.2 cm. There is displacement of the stomach with luminal narrowing and ear obstruction. The mass appears to infiltrate into the adjacent duodenum. Assessment: -Acute pneumonitis from influenza type B. Patient has no sputum production. At this point doubt secondary infection. White count is normal. -acute GI bleed causing blood loss anemia with recent EGD at [facility] showing gastric ulcer. Last admission patient did require 2 units of blood. Since he was discharged 2 days ago patient again drop her hemoglobin. Given that patient's hypotensive and transfuse blood. -Easha-rjodwcayc-[id number] mass, workup done at [facility].-biopsy showing smoothl muscle mass, due to follow-up with Dr. Pandya -Solitary gallstone, asymptomatic -Coronary artery disease -COPD in an ex-smoker -Chronic fibromyalgia -GERD -Hyperlipidemia -Essential hypertension -Primary osteoarthritis -Hypothyroid -Chronic multiple sclerosis -Peripheral neuropathy both the lower extremity -Chronic urinary incontinence -Chronic gait dysfunction uses a walker/wheelchair plan: Patient is on Tamiflu. Seen by Dr. Driver from pulmonary. Levaquin was added. Also on steroids. Care was discussed with the patient.. No further intervention per GI.
[2019-03-30] MEDS: LEVOTHYROXINE 100 MCG TAB PO SCH (05:57)
--- NOTE | 2019-03-30 07:41 | XR ---
EXAMINATION TYPE: XR chest 1V portable DATE OF EXAM: 03/30/2019 HISTORY: shortness of breath. REFERENCE: Previous study dated 03/28/2019. FINDINGS: A unipolar pacemaker is in place on the left. The heart is enlarged. There are patchy infiltrates in the right lung. Left lung is clear. Lung volum es are prominent. There is a small right effusion. IMPRESSION: WORSENING RIGHT BASILAR AIRSPACE DISEASE WITH A CONCOMITANT EFFUSION.
[2019-03-30] MEDS: SODIUM CHLORIDE 0.9% 1,000 ML IV SCH ×2 (07:51→15:52)
[2019-03-30] MEDS: FERROUS SULFATE 325 MG TAB PO SCH ×2 (08:13→20:57)
[2019-03-30] MEDS: ISOSORBIDE MONONITRATE ER 30 MG TAB.ER.24H PO SCH (08:13)
[2019-03-30] MEDS: GABAPENTIN 300 MG CAP PO SCH ×3 (08:13→20:57)
[2019-03-30] MEDS: BACLOFEN 10 MG TAB PO SCH ×2 (08:13→20:57)
[2019-03-30] MEDS: ATORVASTATIN 40 MG TAB PO SCH (08:13)
[2019-03-30] MEDS: FOLIC ACID 1 MG TAB PO SCH (08:13)
[2019-03-30] MEDS: CYANOCOBALAMIN 500 MCG TAB PO SCH (08:13)
[2019-03-30] MEDS: ALPRAZolam 0.25 MG TAB PO SCH ×3 (08:13→20:57)
[2019-03-30] MEDS: THIAMINE 100 MG TAB PO SCH (08:13)
[2019-03-30] MEDS: AMIODARONE 200 MG TAB PO SCH (08:13)
[2019-03-30] MEDS: ARIPiprazole 10 MG TAB PO SCH (08:13)
[2019-03-30] MEDS: methylPREDNISolone SOD SUCCI 40 MG/ML 1 ML VIAL IV SCH ×3 (08:13→23:34)
[2019-03-30] MEDS: PANTOPRAZOLE 40 MG/10 ML VIAL IV SCH ×2 (08:14→20:56)
[2019-03-30] MEDS: PRIMIDONE 50 MG TAB PO SCH ×2 (08:14→20:57)
[2019-03-30] MEDS: oxyCODONE-APAP 5-325MG 1 EACH TAB PO PRN ×3 (08:19→23:35)
[2019-03-30] MEDS: SYMBICORT 160-4.5 MCG INHALER INHALATION SCH ×2 (08:30→20:29)
[2019-03-30] MEDS: IPRATROPIUM-ALBUTEROL 3 ML NEB INHALATION SCH ×4 (08:30→20:29)
[2019-03-30] MEDS: OSELTAMIVIR 75 MG CAP PO SCH ×2 (08:34→20:57)
[2019-03-30] MEDS: LEVOFLOXACIN 750 MG TAB PO SCH (15:52)
--- NOTE | 2019-03-30 16:04 | P.PN ---
Subjective Progress Note Date: 03/30/19 53-year-old female patient, history of COPD, coronary artery disease, hyperten william, hyperlipidemia, hypothyroidism and previous is some multiple sclerosis with peripheral neuropathy involving the lower extremities. The patient also has a questionable history of malignancy with a gastric mass and she was supposed to follow with oncology in that regard. . Based on a CAT scan of the abdomen that was done in January 2019 the patient a large partial cystic/solid mass in the greater curvature of the stomach measuring 18 x 10 x 11.2 cm in size. She was also found to have some ascites She has had episodes of upper GI bleeding requiring brief hospitalization seen in our hospital. The patient came into the hospital because of increased dyspnea cough chest congestion and whe ezing and she was complaining of generalized weakness. She denies having any fever or chills. Her white cell count is at 6.6 and hemoglobin was at 7.1 at time of admission. He and the level was 1580 and a troponin was at 0.018. Urinalysis was negative. Influenza B screen by PCR was positive. The patient was started on Tamiflu. The chest x-ray showed bilateral pulmonary infiltrates and the patient has a pacemaker across the left anterior chest area. In terms of her cardiac history, the patient is known to have coronary artery disease and previous stent insertion in the RCA back in 2012 and she has history of ischemic cardiomyopathy and she has an AICD in place. She has had previous history of V. tach arrest in 2012. Her COPD is advanced. Based on the most his echocardiogram from March 2018, the patient had a impairment of the fungal with an ejection fraction of 40-45% along with inferolateral wall and inferobasal wall hypokinesis and mild MR and TR. On 03/30/2019 the patient is feeling fatigue and tired. She still has a congested cough. Still on oxygen 2 L. Still on Tamiflu. The chest x-ray from today shows worsening in the right lower lobe pulmonary infiltration. She was getting IV fluids at the rate of 100 mL an hour and she was cut down to 20 mL an hour. Potassium replaced and is up from 3.1-3.9. Renal function is stable and she is afebrile. No other significant events. The patient is receiving bronchodilators. The patient is on IV Solu-Medrol. She is on Tamiflu and empiric antibiotic coverage with Levaquin. Objective - Vital Signs Vital signs: Vital Signs Temp 98.4 F 03/30/19 12:00 Pulse 76 03/30/19 15:39 Resp 16 03/30/19 12:00 BP 114/65 03/30/19 12:00 Pulse Ox 90 L 03/30/19 12:00 Intake & Output 03/29/19 03/30/19 03/30/19 18:59 06:59 18:59 Intake Total 888 1260 Output Total 400 400 Balance 888 -400 860 Weight 58.967 kg Intake: Intake, IV Titration 900 Amount Sodium Chloride 0.9% 1, 900 000 ml @ 120 mls/hr IV . Q8H20M S[facility] Rx#:[id number] Oral 888 360 Output: Urine 400 400 Other: Voiding Method Incontinent Incontinent Bedpan Incontinent # Voids 1 1 # Bowel Movements 2 1 - Exam comfortable no acute distress currently on oxygen at 3 L Head exam was generally normal. There was no scleral icterus or corneal arcus. Mucous membranes were moist. Neck was supple and without jugular venous distension, thyromegaly, or carotid bruits. Carotids were easily palpable bilaterally. There was no adenopathy. Lungs sounds are diminished the patient has thoracic kyphosis and some mild degree of scoliosis and crackles in lung bases bilaterally with scattered rhonchi and scattered expiratory wheezes heard throughout the lung perea bilaterally. Cardiac exam revealed the PMI to be normally situated and sized. The rhythm was regular and no extrasystoles were noted during several minutes of auscultation. The first and second heart sounds were normal and physiologic splitting of the second heart sound was noted. There were no murmurs, rubs, clicks, or gallops.The patient is a pacemaker pocket over the left anterior chest Abdominal exam revealed normal bowel sounds. The abdomen was soft, non-tender, and without masses, organomegaly, or appreciable enlargement of the abdominal aorta. Extremities revealed +1 edema and there is no cyanosis or clubbing. Neurologically awake and alert and is no focal neurological deficit. - Labs CBC & Chem 7: 03/29/19 03:25 03/30/19 08:40 Labs: Microbiology - Last 24 Hours (Table) 03/28/19 15:55 Blood Culture - Preliminary Blood No Growth after 24 hours Assessment and Plan Plan: 1 acute bilateral pneumonia secondary influenza B 2 acute on chronic hypoxic respiratory failure currently on 3 L about 2 by nasal cannula and the patient is at 2 L at home at baseline 3 acute COPD exacerbation secondary influenza B pneumonia 4 fever with a T-max of 101.6 currently afebrile 5 generalized weakness secondary to above 6 Known history of coronary artery disease with previous coronary intervention stenting 7 known history of a gastric mass, likely benign and the malignant nature has not been established yet and the patient has had previous bouts of upper GI bleeding 8 chronic anemia with possibility of chronic blood loss anemia secondary to a gastric mass and ongoing bleed 9 CHF with ischemic cardiomyopathy and ejection fraction of 40-45% [facility] 10 history of multiple sclerosis 11 history of peripheral neuropathy 12 migraines 13 osteoarthritis 14 hypothyroidism 15 history of V. tach related cardiac arrest 16 thoracic kyphosis and mild degree of scoliosis 17 hypertension 18 ulcerative colitis/irritable bowel syndrome along with previous history of pancreatitis 19 peripheral vascular disease 20 and a 21 chronic lower extremity edema Plan IV fluids to KVO Follow-up chest x-ray was noted Continue Tamiflu and Levaquin Continue steroids Keep oxygen at 2 L, I will continue to follow
--- NOTE | 2019-03-30 22:47 | P.PN ---
Progress Note - Text Progress Note Date: 03/30/19 Chief Complaint: Cough and congestion Interval history: This is a 63-year-old patient who follows with visiting physicians Dr. Vera. patient was just discharged on March 21from the hospital following a diagnosis of pneumonia. Patient has a rather extensive medical history. Normally uses a wheelchair or a walker to get about. Chronic stable medical conditions include, coronary artery disease, COPD in an ex-smoker, chronic fibromyalgia, GERD, hyperlipidemia, essential hypertension, osteoarthritis, hypothyroid, chronic multiple sclerosis, peripheral neuropathy lower extremity, chronic urinary incontinence. Patient at the end of January was here at the hospital was found to have a large abdominal mass invading surrounding structures and patient transferred to [facility]. at [facility]- patient did have a EGD that showed gastric ulcer. nonbleeding. also. To have a gastric mass. That showed smooth muscle on biopsy.patient was due to follow up at [facility] report has got an appointment to follow-up with Dr. Dominique oncologist locally here. Patient also follows with Dr. Lees who she has seen before. Patient was readmitted on March 23 and discharged on March 25. Had some dark stools. Was managed conservatively. Because it dropped her hemoglobin was given 2 units of blood. Patient now presents with 2 days of significant cough congestion with chest fever tired rundown some shortness of breath. Decreased appetite. Patient ruled in for influenza type B. Also to drop in hemoglobin from 2 days ago. Given another unit of blood Today-propped up in bed. Tired. tolerated some diet. Breathing somewhat butch r. Less cough. Review of systems: Was done for constitutional, cardiovascular, GI, pulmonary. relevant finding as above Active Medications Acetaminophen (Tylenol Tab) 650 mg PO Q6HR PRN PRN Reason: Mild Pain or Fever > 100.5 Last Admin: 03/29/19 20:54 Dose: 650 mg Documented by: Albuterol/Ipratropium (Duoneb 0.5 Mg-3 Mg/3 Ml Soln) 3 ml INHALATION RT-QID SID Last Admin: 03/30/19 20:29 Dose: 3 ml Documented by: Albuterol/Ipratropium (Duoneb 0.5 Mg-3 Mg/3 Ml Soln) 3 ml INHALATION RT-Q2H PRN PRN Reason: Shortness Of Breath Or Wheezing Last Admin: 03/29/19 23:35 Dose: 3 ml Documented by: Alprazolam (Xanax) 0.25 mg PO TID [facility] Last Admin: 03/30/19 20:57 Dose: 0.25 mg Documented by: Amiodarone HCl (Cordarone) 200 mg PO DAILY [facility] Last Admin: 03/30/19 08:13 Dose: 200 mg Documented by: Aripiprazole (Abilify) 10 mg PO DAILY [facility] Last Admin: 03/30/19 08:13 Dose: 10 mg Documented by: Atorvastatin Calcium (Lipitor) 40 mg PO DAILY [facility] Last Admin: 03/30/19 08:13 Dose: 40 mg Documented by: Baclofen (Lioresal) 10 mg PO BID [facility] Last Admin: 03/30/19 20:57 Dose: 10 mg Documented by: Budesonide/Formoterol Fumarate (Symbicort 160-4.5 Mcg Inhaler) 1 puff INHALATION RT-BID [facility] Last Admin: 03/30/19 20:29 Dose: Not Given Documented by: Cyanocobalamin (Vitamin B-12) 1,000 mcg PO DAILY [facility] Last Admin: 03/30/19 08:13 Dose: 1,000 mcg Documented by: Ferrous Sulfate (Feosol) 325 mg PO BID [facility] Last Admin: 03/30/19 20:57 Dose: 325 mg Documented by: Folic Acid (Folic Acid) 1 mg PO DAILY [facility] Last Admin: 03/30/19 08:13 Dose: 1 mg Documented by: Gabapentin (Neurontin) 300 mg PO TID [facility] Last Admin: 03/30/19 20:57 Dose: 300 mg Documented by: Sodium Chloride (Saline 0.9%) 1,000 mls @ 20 mls/hr IV .Q24H [facility] Last Admin: 03/30/19 15:52 Dose: 120 mls/hr Documented by: Isosorbide Mononitrate (Imdur) 30 mg PO DAILY [facility] Last Admin: 03/30/19 08:13 Dose: 30 mg Documented by: Levofloxacin (Levaquin) 750 mg PO Q24H [facility] Last Admin: 03/30/19 15:52 Dose: 750 mg Documented by: Levothyroxine Sodium (Synthroid) 100 mcg PO DAILY@0630 [facility] Last Admin: 03/30/19 05:57 Dose: 100 mcg Documented by: Loperamide HCl (Imodium) 2 mg PO DAILY PRN PRN Reason: Diarrhea Methylprednisolone Sodium Succinate (Solu-Medrol) 40 mg IV Q8HR [facility] Last Admin: 03/30/19 15:52 Dose: 40 mg Documented by: Naloxone HCl (Narcan) 0.2 mg IV Q2M PRN PRN Reason: Opioid Reversal Ondansetron HCl (Zofran) 4 mg IVP Q8HR PRN PRN Reason: Nausea And Vomiting Oseltamivir Phosphate (Tamiflu) 75 mg PO Q12HR [facility] Stop: 04/02/19 21:01 Last Admin: 03/30/19 20:57 Dose: 75 mg Documented by: Oxycodone/Acetaminophen (Percocet 5-325) 1 each PO Q8H PRN PRN Reason: Pain Last Admin: 03/30/19 15:47 Dose: 1 each Documented by: Pantoprazole Sodium (Protonix) 40 mg IV BID [facility] Last Admin: 03/30/19 20:56 Dose: 40 mg Documented by: Primidone (Mysoline) 50 mg PO BID [facility] Last Admin: 03/30/19 20:57 Dose: 50 mg Documented by: Thiamine HCl (Vitamin B-1) 100 mg PO DAILY [facility] Last Admin: 03/30/19 08:13 Dose: 100 mg Documented by: Physical examination: VITAL SIGNS:98.4, 83, 16, 11 4/65, 90% on 2 L GENERAL: Laying in bed, tired, weak EYES: Pupils equal. Conjunctiva pale HEENT: External appearance of nose and ears normal, oral cavity grossly normal. NECK: JVD not raised; masses not palpable. HEART: First and second heart sounds are normal; no edema. LUNGS: Respiratory rate increased, decreased breath sounds. right basal crackles course ABDOMEN: Soft, mild upper abdominal tenderness, no guarding or rigidity, liver spleen not palpable, no masses palpable. LYMPHATICS: No lymph nodes palpable in the axilla and neck. PSYCH: Alert and oriented x3; mood and affect normal. Investigations: White count 6.6 hemoglobin 9.3 potassium 3.1 creatinine 0.5 to Previous testing White count 6.7 hemoglobin 7.1 it was 8.92 days ago potassium 2.816 creatinine 0.53 UA negative. Fecal occult stool positive, influenza type B PCR detected EKG tracing personally reviewed by me-was slightly reviewed by me shows some T- wave inversion in V4 to V6 and maybe 1 and aVL Chest x-ray film personally reviewed by me-unable to differentiate between acute on chronic changes previous testing: Abdominal ultrasound-possible cirrhosis, mildly thickened gallbladder wall, suspect gallstone, large complex mass temperature was centimeters in the mid abdomen Computed tomography scan abdomen-large partially cystic partially solid mass appears to rise from the great echo which was normal measuring 18 by then 0.7 x 1.2 cm. There is displacement of the stomach with luminal narrowing and ear obstruction. The mass appears to infiltrate into the adjacent duodenum. Assessment: -Acute pneumonitis from influenza type B. . Also be covered for secondary bacterial infection -acute GI bleed causing blood loss anemia with recent EGD at [facility] showing gastric ulcer. Last admission patient did require 2 units of blood. Since he was discharged 2 days ago patient again drop her hemoglobin. Given that patient's hypotensive and transfuse blood. -Onymd-mckirvyro-odldwbj mass, workup done at [facility].-biopsy showing smoothl muscle mass, due to follow-up with Dr. Pandya -Solitary gallstone, asymptomatic -Coronary artery disease -COPD in an ex-smoker -Chronic fibromyalgia -GERD -Hyperlipidemia -Essential hypertension -Primary osteoarthritis -Hypothyroid -Chronic multiple sclerosis -Peripheral neuropathy both the lower extremity -Chronic urinary incontinence -Chronic gait dysfunction uses a walker/wheelchair plan: some improvement. Continue with Levaquin and Tamiflu. Other medications to continue. Patient wishes to go for inpatient rehab. We'll consult mental health social worker. Consult [facility]
[2019-03-31] MEDS: SODIUM CHLORIDE 0.9% 1,000 ML IV SCH ×2 (05:00→22:43)
[2019-03-31] MEDS: LEVOTHYROXINE 100 MCG TAB PO SCH (06:06)
[2019-03-31] MEDS: IPRATROPIUM-ALBUTEROL 3 ML NEB INHALATION SCH ×4 (07:55→20:15)
[2019-03-31] MEDS: SYMBICORT 160-4.5 MCG INHALER INHALATION SCH ×2 (07:55→20:20)
[2019-03-31] MEDS: PANTOPRAZOLE 40 MG/10 ML VIAL IV SCH ×2 (09:48→21:01)
[2019-03-31] MEDS: GABAPENTIN 300 MG CAP PO SCH ×3 (09:48→21:01)
[2019-03-31] MEDS: ALPRAZolam 0.25 MG TAB PO SCH ×3 (09:48→21:01)
[2019-03-31] MEDS: methylPREDNISolone SOD SUCCI 40 MG/ML 1 ML VIAL IV SCH ×3 (09:48→22:43)
[2019-03-31] MEDS: AMIODARONE 200 MG TAB PO SCH (09:49)
[2019-03-31] MEDS: PRIMIDONE 50 MG TAB PO SCH ×2 (09:49→21:01)
[2019-03-31] MEDS: CYANOCOBALAMIN 500 MCG TAB PO SCH (09:49)
[2019-03-31] MEDS: FOLIC ACID 1 MG TAB PO SCH (09:49)
[2019-03-31] MEDS: THIAMINE 100 MG TAB PO SCH (09:49)
[2019-03-31] MEDS: BACLOFEN 10 MG TAB PO SCH ×2 (09:49→21:01)
[2019-03-31] MEDS: FERROUS SULFATE 325 MG TAB PO SCH ×2 (09:49→21:02)
[2019-03-31] MEDS: ISOSORBIDE MONONITRATE ER 30 MG TAB.ER.24H PO SCH (09:49)
[2019-03-31] MEDS: ATORVASTATIN 40 MG TAB PO SCH (09:49)
[2019-03-31] MEDS: ARIPiprazole 10 MG TAB PO SCH (09:49)
[2019-03-31] MEDS: OSELTAMIVIR 75 MG CAP PO SCH ×2 (11:00→22:43)
[2019-03-31] MEDS: oxyCODONE-APAP 5-325MG 1 EACH TAB PO PRN ×2 (11:00→18:08)
--- NOTE | 2019-03-31 14:46 | P.PN ---
Subjective Progress Note Date: 03/31/19 53-year-old female patient, history of COPD, coronary artery disease, hyperten william, hyperlipidemia, hypothyroidism and previous is some multiple sclerosis with peripheral neuropathy involving the lower extremities. The patient also has a questionable history of malignancy with a gastric mass and she was supposed to follow with oncology in that regard. . Based on a CAT scan of the abdomen that was done in January 2019 the patient a large partial cystic/solid mass in the greater curvature of the stomach measuring 18 x 10 x 11.2 cm in size. She was also found to have some ascites She has had episodes of upper GI bleeding requiring brief hospitalization seen in our hospital. The patient came into the hospital because of increased dyspnea cough chest congestion and whe ezing and she was complaining of generalized weakness. She denies having any fever or chills. Her white cell count is at 6.6 and hemoglobin was at 7.1 at time of admission. He and the level was 1580 and a troponin was at 0.018. Urinalysis was negative. Influenza B screen by PCR was positive. The patient was started on Tamiflu. The chest x-ray showed bilateral pulmonary infiltrates and the patient has a pacemaker across the left anterior chest area. In terms of her cardiac history, the patient is known to have coronary artery disease and previous stent insertion in the RCA back in 2012 and she has history of ischemic cardiomyopathy and she has an AICD in place. She has had previous history of V. tach arrest in 2012. Her COPD is advanced. Based on the most his echocardiogram from March 2018, the patient had a impairment of the fungal with an ejection fraction of 40-45% along with inferolateral wall and inferobasal wall hypokinesis and mild MR and TR. On 03/30/2019 the patient is feeling fatigue and tired. She still has a congested cough. Still on oxygen 2 L. Still on Tamiflu. The chest x-ray from today shows worsening in the right lower lobe pulmonary infiltration. She was getting IV fluids at the rate of 100 mL an hour and she was cut down to 20 mL an hour. Potassium replaced and is up from 3.1-3.9. Renal function is stable and she is afebrile. No other significant events. The patient is receiving bronchodilators. The patient is on IV Solu-Medrol. She is on Tamiflu and empiric antibiotic coverage with Levaquin. On 03/31/2019 the patient is essentially the same. She declines any significant improvement. She still on Tamiflu. No fever or chills. No other complaints. Chest x-ray to be repeated tomorrow. Objective - Vital Signs Vital signs: Vital Signs Temp 97.6 F 03/31/19 08:30 Pulse 84 03/31/19 12:00 Resp 18 03/31/19 12:00 BP 141/63 03/31/19 12:00 Pulse Ox 95 03/31/19 12:00 Intake & Output 03/30/19 03/31/19 03/31/19 18:59 06:59 18:59 Intake Total 1620 120 600 Output Total 400 400 Balance 1220 -280 600 Weight 25 kg Intake: Intake, IV Titration 900 Amount Sodium Chloride 0.9% 1, 900 000 ml @ 20 mls/hr IV . Q24H COUNT INCLUDES THE [facility] Rx#:[id number] Oral 720 120 600 Output: Urine 400 400 Other: Voiding Method Bedpan Bedpan Bedpan Incontinent Diaper Diaper Incontinent Incontinent # Voids 1 1 # Bowel Movements 1 - Exam comfortable no acute distress currently on oxygen at 3 L Head exam was generally normal. There was no scleral icterus or corneal arcus. Mucous membranes were moist. Neck was supple and without jugular venous distension, thyromegaly, or carotid bruits. Carotids were easily palpable bilaterally. There was no adenopathy. Lungs sounds are diminished the patient has thoracic kyphosis and some mild degree of scoliosis and crackles in lung bases bilaterally with scattered rhonchi and scattered expiratory wheezes heard throughout the lung perea bilaterally. Cardiac exam revealed the PMI to be normally situated and sized. The rhythm was regular and no extrasystoles were noted during several minutes of auscultation. The first and second heart sounds were normal and physiologic splitting of the second heart sound was noted. There were no murmurs, rubs, clicks, or gallops.The patient is a pacemaker pocket over the left anterior chest Abdominal exam revealed normal bowel sounds. The abdomen was soft, non-tender, and without masses, organomegaly, or appreciable enlargement of the abdominal aorta. Extremities revealed +1 edema and there is no cyanosis or clubbing. Neurologically awake and alert and is no focal neurological deficit. - Labs CBC & Chem 7: 03/29/19 03:25 03/30/19 08:40 Labs: Microbiology - Last 24 Hours (Table) 03/28/19 15:55 Blood Culture - Preliminary Blood No Growth after 48 hours Assessment and Plan Plan: 1 acute bilateral pneumonia secondary influenza B 2 acute on chronic hypoxic respiratory failure currently on 3 L about 2 by nasal cannula and the patient is at 2 L at home at baseline 3 acute COPD exacerbation secondary influenza B pneumonia 4 fever with a T-max of 101.6 currently afebrile 5 generalized weakness secondary to above 6 Known history of coronary artery disease with previous coronary intervention stenting 7 known history of a gastric mass, likely benign and the malignant nature has not been established yet and the patient has had previous bouts of upper GI bleeding 8 chronic anemia with possibility of chronic blood loss anemia secondary to a gastric mass and ongoing bleed 9 CHF with ischemic cardiomyopathy and ejection fraction of 40-45% and the patient has an AICD in place 10 history of multiple sclerosis 11 history of peripheral neuropathy 12 migraines 13 osteoarthritis 14 hypothyroidism 15 history of V. tach related cardiac arrest 16 thoracic kyphosis and mild degree of scoliosis 17 hypertension 18 ulcerative colitis/irritable bowel syndrome along with previous history of pancreatitis 19 peripheral vascular disease 20 chronic lower extremity edema Plan IV fluids to KVO Follow-up chest x-ray was noted Continue Tamiflu and Levaquin Continue steroids Keep oxygen at 2 L, I will continue to follow Formal compared to yesterday. Repeat chest x-ray in the morning. Repeat labs in the morning. We'll continue to follow. She is afebrile. She is hemodynamically stable.
[2019-03-31] MEDS: LEVOFLOXACIN 750 MG TAB PO SCH (16:10)
[2019-03-31] MEDS ORDERED: Magnesium Replacement Protocol 1 EACH MISC MISCELLANE PRN (20:30)
--- NOTE | 2019-03-31 21:36 | P.PN ---
Progress Note - Text Progress Note Date: 03/31/19 Chief Complaint: Cough and congestion Interval history: This is a 63-year-old patient who follows with visiting physicians Dr. Vera. patient was just discharged on March 21from the hospital following a diagnosis of pneumonia. Patient has a rather extensive medical history. Normally uses a wheelchair or a walker to get about. Chronic stable medical conditions include, coronary artery disease, COPD in an ex-smoker, chronic fibromyalgia, GERD, hyperlipidemia, essential hypertension, osteoarthritis, hypothyroid, chronic multiple sclerosis, peripheral neuropathy lower extremity, chronic urinary incontinence. Patient at the end of January was here at the hospital was found to have a large abdominal mass invading surrounding structures and patient transferred to [facility]. at [facility]- patient did have a EGD that showed gastric ulcer. nonbleeding. also. To have a gastric mass. That showed smooth muscle on biopsy.patient was due to follow up at [facility] report has got an appointment to follow-up with Dr. Dominique oncologist locally here. Patient also follows with Dr. Lees who she has seen before. Patient was readmitted on March 23 and discharged on March 25. Had some dark stools. Was managed conservatively. Because it dropped her hemoglobin was given 2 units of blood. Patient now presents with 2 days of significant cough congestion with chest fever tired rundown some shortness of breath. Decreased appetite. Patient ruled in for influenza type B. Also drop in hemoglobin from 2 days ago. Given another unit of blood Today-remains tired. Eating okay. Some shortness of breath. Less cough. Review of systems: Was done for constitutional, cardiovascular, GI, pulmonary. relevant finding as above Active Medications Acetaminophen (Tylenol Tab) 650 mg PO Q6HR PRN PRN Reason: Mild Pain or Fever > 100.5 Last Admin: 03/29/19 20:54 Dose: 650 mg Documented by: Albuterol/Ipratropium (Duoneb 0.5 Mg-3 Mg/3 Ml Soln) 3 ml INHALATION RT-QID SID Last Admin: 03/31/19 20:15 Dose: 3 ml Documented by: Albuterol/Ipratropium (Duoneb 0.5 Mg-3 Mg/3 Ml Soln) 3 ml INHALATION RT-Q2H PRN PRN Reason: Shortness Of Breath Or Wheezing Last Admin: 03/29/19 23:35 Dose: 3 ml Documented by: Alprazolam (Xanax) 0.25 mg PO TID [facility] Last Admin: 03/31/19 21:01 Dose: 0.25 mg Documented by: Amiodarone HCl (Cordarone) 200 mg PO DAILY [facility] Last Admin: 03/31/19 09:49 Dose: 200 mg Documented by: Aripiprazole (Abilify) 10 mg PO DAILY [facility] Last Admin: 03/31/19 09:49 Dose: 10 mg Documented by: Atorvastatin Calcium (Lipitor) 40 mg PO DAILY [facility] Last Admin: 03/31/19 09:49 Dose: 40 mg Documented by: Baclofen (Lioresal) 10 mg PO BID [facility] Last Admin: 03/31/19 21:01 Dose: 10 mg Documented by: Budesonide/Formoterol Fumarate (Symbicort 160-4.5 Mcg Inhaler) 1 puff INHA LATION RT-BID [facility] Last Admin: 03/31/19 20:20 Dose: Not Given Documented by: Cyanocobalamin (Vitamin B-12) 1,000 mcg PO DAILY [facility] Last Admin: 03/31/19 09:49 Dose: 1,000 mcg Documented by: Ferrous Sulfate (Feosol) 325 mg PO BID [facility] Last Admin: 03/31/19 21:02 Dose: 325 mg Documented by: Folic Acid (Folic Acid) 1 mg PO DAILY [facility] Last Admin: 03/31/19 09:49 Dose: 1 mg Documented by: Gabapentin (Neurontin) 300 mg PO TID [facility] Last Admin: 03/31/19 21:01 Dose: 300 mg Documented by: Sodium Chloride (Saline 0.9%) 1,000 mls @ 20 mls/hr IV .Q24H [facility] Last Admin: 03/31/19 05:00 Dose: 20 mls/hr Documented by: Isosorbide Mononitrate (Imdur) 30 mg PO DAILY [facility] Last Admin: 03/31/19 09:49 Dose: 30 mg Documented by: Levofloxacin (Levaquin) 750 mg PO Q24H [facility] Last Admin: 03/31/19 16:10 Dose: 750 mg Documented by: Levothyroxine Sodium (Synthroid) 100 mcg PO DAILY@0630 [facility] Last Admin: 03/31/19 06:06 Dose: 100 mcg Documented by: Loperamide HCl (Imodium) 2 mg PO DAILY PRN PRN Reason: Diarrhea Methylprednisolone Sodium Succinate (Solu-Medrol) 40 mg IV Q8HR [facility] Last Admin: 03/31/19 16:11 Dose: 40 mg Documented by: Miscellaneous Information (Magnesium Per Protocol) 1 each MISCELLANE DAILY PRN; Protocol PRN Reason: Per Protocol Naloxone HCl (Narcan) 0.2 mg IV Q2M PRN PRN Reason: Opioid Reversal Ondansetron HCl (Zofran) 4 mg IVP Q8HR PRN PRN Reason: Nausea And Vomiting Oseltamivir Phosphate (Tamiflu) 75 mg PO Q12HR [facility] Stop: 04/02/19 21:01 Last Admin: 03/31/19 11:00 Dose: 75 mg Documented by: Oxycodone/Acetaminophen (Percocet 5-325) 1 each PO Q8H PRN PRN Reason: Pain Last Admin: 03/31/19 18:08 Dose: 1 each Documented by: Pantoprazole Sodium (Protonix) 40 mg IV BID [facility] Last Admin: 03/31/19 21:01 Dose: 40 mg Documented by: Primidone (Mysoline) 50 mg PO BID [facility] Last Admin: 03/31/19 21:01 Dose: 50 mg Documented by: Thiamine HCl (Vitamin B-1) 100 mg PO DAILY [facility] Last Admin: 03/31/19 09:49 Dose: 100 mg Documented by: Physical examination: VITAL SIGNS:97.6, 96, 19, 11 4/72, 90% on 3 L GENERAL: Laying in bed, tired, EYES: Pupils equal. Conjunctiva pale HEENT: External appearance of nose and ears normal, oral cavity grossly normal. NECK: JVD not raised; masses not palpable. HEART: First and second heart sounds are normal; no edema. LUNGS: Respiratory rate increased, decreased breath sounds. ABDOMEN: Soft, mild upper abdominal tenderness, no guarding or rigidity, liver spleen not palpable, no masses palpable. LYMPHATICS: No lymph nodes palpable in the axilla and neck. PSYCH: Alert and oriented x3; mood and affect normal. Investigations: White count 6.6 hemoglobin 9.3 potassium 3.1 creatinine 0.5 to Previous testing White count 6.7 hemoglobin 7.1 it was 8.92 days ago potassium 2.816 creatinine 0.53 UA negative. Fecal occult stool positive, influenza type B PCR detected EKG tracing personally reviewed by me-was slightly reviewed by me shows some T- wave inversion in V4 to V6 and maybe 1 and aVL Chest x-ray film personally reviewed by me-unable to differentiate between acute on chronic changes previous testing: Abdominal ultrasound-possible cirrhosis, mildly thickened gallbladder wall, suspect gallstone, large complex mass temperature was centimeters in the mid abdomen Computed tomography scan abdomen-large partially cystic partially solid mass appears to rise from the great echo which was normal measuring 18 by then 0.7 x 1.2 cm. There is displacement of the stomach with luminal narrowing and ear obstruction. The mass appears to infiltrate into the adjacent duodenum. Assessment: -Acute pneumonitis from influenza type B. . Also be covered for secondary bacterial infection, improving -acute GI bleed causing blood loss anemia with recent EGD at [facility] showing gastric ulcer. Last admission patient did require 2 units of blood. Since he was discharged 2 days ago patient again drop her hemoglobin. Given that patient's hypotensive and transfuse blood. -Rzqlu-ubzwszqxn-pgfrcsg mass, workup done at [facility].-biopsy showing smoothl muscle mass, due to follow-up with Dr. Pandya -Solitary gallstone, asymptomatic -Coronary artery disease -COPD in an ex-smoker -Chronic fibromyalgia -GERD -Hyperlipidemia -Essential hypertension -Primary osteoarthritis -Hypothyroid -Chronic multiple sclerosis -Peripheral neuropathy both the lower extremity -Chronic urinary incontinence -Chronic gait dysfunction uses a walker/wheelchair plan: continue current medication treatment plan. Possibly related to go to the ECF in next day or 2. Check labs in the morning. Care discussed with the patient.
[2019-03-31] MEDS: IPRATROPIUM-ALBUTEROL 3 ML NEB INHALATION PRN (23:55)
[2019-04-01 06:18] LABS: African American GFR (CKD) >90 (>60 ml/min/1.73 sqM); Anion Gap 1 mmol/L; Blood Urea Nitrogen 9 mg/dL (7-17); Calcium 7.9 mg/dL (8.4-10.2); Carbon Dioxide 29 mmol/L (22-30); Chloride 102 mmol/L (98-107); Glucose 133 mg/dL (74-99); Magnesium 1.8 mg/dL (1.6-2.3); Non-African American GFR(CKD) >90 (>60 ml/min/1.73 sqM); Sodium 132 mmol/L (137-145)
[2019-04-01] MEDS: LEVOTHYROXINE 100 MCG TAB PO SCH (06:43)
--- NOTE | 2019-04-01 07:21 | XR ---
EXAMINATION TYPE: XR chest 1V DATE OF EXAM: 04/01/2019 COMPARISON: 03/28/2019 HISTORY: 63 year-old female follow-up pneumonia TECHNIQUE: Single frontal view of the chest is obtained. FINDINGS: Left anterior chest wall AICD generator with right ventricular lead. Heart remains upper limits of no rmal in size. Relatively small volume within the right hemithorax is redemonstrated with interstitial and patchy airspace opacities right mid and lower lung. Mild patchy medial left basilar opacity also redemonstrated. IMPRESSION: Similar volume loss and interstitial infiltrates right mid and lower lung. Suspect background of emph ysema.
[2019-04-01] MEDS: IPRATROPIUM-ALBUTEROL 3 ML NEB INHALATION SCH ×4 (08:02→19:34)
[2019-04-01] MEDS: SYMBICORT 160-4.5 MCG INHALER INHALATION SCH (08:03)
[2019-04-01] MEDS: AMIODARONE 200 MG TAB PO SCH (09:01)
[2019-04-01] MEDS: FOLIC ACID 1 MG TAB PO SCH (09:01)
[2019-04-01] MEDS: ARIPiprazole 10 MG TAB PO SCH (09:01)
[2019-04-01] MEDS: ATORVASTATIN 40 MG TAB PO SCH (09:01)
[2019-04-01] MEDS: FERROUS SULFATE 325 MG TAB PO SCH ×2 (09:01→22:17)
[2019-04-01] MEDS: CYANOCOBALAMIN 500 MCG TAB PO SCH (09:01)
[2019-04-01] MEDS: BACLOFEN 10 MG TAB PO SCH ×2 (09:01→22:17)
[2019-04-01] MEDS: methylPREDNISolone SOD SUCCI 40 MG/ML 1 ML VIAL IV SCH ×3 (09:01→23:14)
[2019-04-01] MEDS: ALPRAZolam 0.25 MG TAB PO SCH ×3 (09:01→22:18)
[2019-04-01] MEDS: PRIMIDONE 50 MG TAB PO SCH ×2 (09:02→22:18)
[2019-04-01] MEDS: PANTOPRAZOLE 40 MG/10 ML VIAL IV SCH ×2 (09:02→22:18)
[2019-04-01] MEDS: THIAMINE 100 MG TAB PO SCH (09:02)
[2019-04-01] MEDS: ISOSORBIDE MONONITRATE ER 30 MG TAB.ER.24H PO SCH (09:02)
[2019-04-01] MEDS: GABAPENTIN 300 MG CAP PO SCH ×3 (09:02→22:17)
[2019-04-01] MEDS: oxyCODONE-APAP 5-325MG 1 EACH TAB PO PRN ×2 (09:19→22:25)
[2019-04-01] MEDS: OSELTAMIVIR 75 MG CAP PO SCH ×2 (11:04→22:18)
--- NOTE | 2019-04-01 11:47 | P.PN ---
Subjective covering for Dr. Bay This is a pleasant 63 old female with past medical history of coronary artery disease, COPD in an ex-smoker, chronic fibromyalgia, GERD, hyperlipidemia, essential hypertension, osteoarthritis, hypothyroid, chronic multiple sclerosis, peripheral neuropathy lower extremity, chronic urinary incontinence. Abdominal mass with history of upper GI bleed.postoperative presents because of dyspnea and found to have bilateral pneumonia secondary to influenza, patient has been evaluated by mis director and she is placed on oral Levaquin of 750 mg daily besides Tamiflu, also patient was started on some Medrol 40 mg and IV Protonix 40 kg twice daily for her history of recent upper GI bleed. This morning patient is still short of breath with some coughing and phlegm. She has generalized body aches and she relates That to her multiple sclerosis.patient complains from mild bilateral leg weakness which she thinks is also related to multiple sclerosis patient is also aware of her abdominal mass diagnosis and she told me she would follow up with Dr. Egan when she will be discharged vital signs stable and she saturates 92% on 3 L oxygen via Nasal cannula.Labs show sodium 132, creatinine 0.4 and magnesium 1.8. Objective - Vital Signs Vital signs: Vital Signs Temp 98.0 F 04/01/19 08:00 Pulse 93 04/01/19 11:39 Resp 18 04/01/19 11:39 BP 119/62 04/01/19 11:39 Pulse Ox 92 L 04/01/19 11:39 Intake & Output 03/31/19 04/01/19 04/01/19 18:59 06:59 18:59 Intake Total 1544 140 222 Output Total 350 500 800 Balance 5275 -613 -154 Weight 72 kg Intake: Intake, IV Titration 140 140 Amount Sodium Chloride 0.9% 1, 140 140 000 ml @ 20 mls/hr IV . Q24H [facility] Rx#:[id number] Oral 1404 222 Output: Urine 350 500 800 Other: Voiding Method Bedpan Bedpan Bedpan Diaper Diaper Diaper Incontinent Incontinent Incontinent - Exam GENERAL: The patient is alert and oriented x3, not in any acute distress. Well developed, well nourished. HEENT: Pupils are round and equally reacting to light. EOMI. No scleral icterus. No conjunctival pallor. Normocephalic, atraumatic. No pharyngeal erythema. No thyromegaly. CARDIOVASCULAR: S1 and S2 present. No murmurs, rubs, or gallops. -PULMONARY: Chest is clear to auscultation, bilateral scattered wheezing and crackles. ABDOMEN: Soft, nontender, nondistended, normoactive bowel sounds. No palpable organomegaly. MUSCULOSKELETAL: No joint swelling or deformity. EXTREMITIES: No cyanosis, clubbing, or pedal edema. NEUROLOGICAL: Gross neurological examination did not reveal any focal deficits. SKIN: No rashes. no petechiae. - Labs CBC & Chem 7: 03/29/19 03:25 04/01/19 05:58 Labs: Abnormal Lab Results - Last 24 Hours (Table) 04/01/19 Range/Units 05:58 Sodium 132 L (137-145) mmol/L Creatinine 0.47 L (0.52-1.04) mg/dL Glucose 133 H (74-99) mg/dL Calcium 7.9 L (8.4-10.2) mg/dL Microbiology - Last 24 Hours (Table) 03/28/19 15:55 Blood Culture - Preliminary Blood No Growth after 72 hours Assessment and Plan Assessment: -Acute pneumonitis from influenza type B. . Also be covered for secondary bacterial infection, improving -acute exacerbation of COPD in an ex-smoker -acute GI bleed causing blood loss anemia with recent EGD at [facility] showing gastric ulcer. Last admission patient did require 2 units of blood. Since he was discharged 2 days ago patient again drop her hemoglobin. -Knkkc-liupqzufy-zyreifr mass, workup done at [facility].-biopsy showing smooth muscle mass, due to follow-up with Dr. Pandya -multiple sclerosis, with possible acute exacerbation -Acute respiratory failure -Solitary gallstone, asymptomatic -Coronary artery disease -Chronic fibromyalgia -GERD -Hyperlipidemia -Essential hypertension -Primary osteoarthritis -Hypothyroid -Chronic multiple sclerosis -Peripheral neuropathy both the lower extremity -Chronic urinary incontinence -Chronic gait dysfunction uses a walker/wheelchair Plan: this is a pleasant 63 years old female who presents with pneumonia, stones and upper GI bleed. Continue with steroids, continue with IV Protonix, continue with antibiotics in the form of Levaquin and Tamiflu.follow-up with pulmonary recommendation Labs and medication were reviewed.. Continue same treatment. Continue with symptomatic treatment. Resume home medication. Monitor lytes and vitals. DVT and GI prophylaxis. Further recommendations of the clinical course of the patient DVT prophylaxis:no anticoagulation in view of recent upper GI bleed GI Prophylaxis: Protonix PT/OT: Pending. Patient is supposed to go to ECF upon discharge Prognosis is guarded
[2019-04-01] MEDS ORDERED: MAGNESIUM SULFATE-D5W PMX 1 GM in DEXTROSE/WATER 1 100ML.BAG IVPB ONE (12:00)
--- NOTE | 2019-04-01 12:56 | P.PN ---
Subjective Progress Note Date: 04/01/19 Principal diagnosis: acute bilateral pneumonia secured to influenza B 53-year-old female patient, history of COPD, coronary artery disease, hypertension, hyperlipidemia, hypothyroidism and previous is some multiple sclerosis with peripheral neuropathy involving the lower extremities. The patient also has a questionable history of malignancy with a gastric mass and she was supposed to follow with oncology in that regard. . Based on a CAT scan of the abdomen that was done in January 2019 the patient a large partial cystic/solid mass in the greater curvature of the stomach measuring 18 x 10 x 11.2 cm in size. She was also found to have some ascites She has had episodes o f upper GI bleeding requiring brief hospitalization seen in our hospital. The patient came into the hospital because of increased dyspnea cough chest congestion and wheezing and she was complaining of generalized weakness. She denies having any fever or chills. Her white cell count is at 6.6 and hemoglobin was at 7.1 at time of admission. He and the level was 1580 and a troponin was at 0.018. Urinalysis was negative. Influenza B screen by PCR was positive. The patient was started on Tamiflu. The chest x-ray showed bilateral pulmonary infiltrates and the patient has a pacemaker across the left anterior chest area. In terms of her cardiac history, the patient is known to have coronary artery disease and previous stent insertion in the RCA back in 2012 and she has history of ischemic cardiomyopathy and she has an AICD in place. She has had previous history of V. tach arrest in 2012. Her COPD is advanced. Based on the most his echocardiogram from March 2018, the patient had a impairment of the fungal with an ejection fraction of 40-45% along with inferolateral wall and inferobasal wall hypokinesis and mild MR and TR. On 03/30/2019 the patient is feeling fatigue and tired. She still has a congested cough. Still on oxygen 2 L. Still on Tamiflu. The chest x-ray from today shows worsening in the right lower lobe pulmonary infiltration. She was getting IV fluids at the rate of 100 mL an hour and she was cut down to 20 mL an hour. Potassium replaced and is up from 3.1-3.9. Renal function is stable and she is afebrile. No other significant events. The patient is receiving bronchodilators. The patient is on IV Solu-Medrol. She is on Tamiflu and empiric antibiotic coverage with Levaquin. On 03/31/2019 the patient is essentially the same. She declines any significant improvement. She still on Tamiflu. No fever or chills. No other complaints. Chest x-ray to be repeated tomorrow. On 04/01/2019 patient seen in follow-up on she is awake and alert, in no acute distress, she is up in the recliner, she is currently on 3 L of oxygen with a pulse ox of 92%. She is still congested, bronchospastic, not able to bring up much sputum. Ms. on a combination of Levaquin and Tamiflu IV steroids, and nebulized bronchodilators. overall she states there is some improvement, although patient is still congested and wheezy.today's chest x-ray has been reviewed showing similar volume loss and interstitial infiltrates in the right mid and lower lung Objective - Vital Signs Vital signs: Vital Signs Temp 98.0 F 04/01/19 08:00 Pulse 93 04/01/19 11:40 Resp 18 04/01/19 11:40 BP 119/62 04/01/19 11:39 Pulse Ox 92 L 04/01/19 11:39 Intake & Output 03/31/19 04/01/19 04/01/19 18:59 06:59 18:59 Intake Total 1544 140 222 Output Total 350 500 800 Balance 9980 -228 -699 Weight 72 kg Intake: Intake, IV Titration 140 140 Amount Sodium Chloride 0.9% 1, 140 140 000 ml @ 20 mls/hr IV . Q24H [facility] Rx#:[id number] Oral 1404 222 Output: Urine 350 500 800 Other: Voiding Method Bedpan Bedpan Bedpan Diaper Diaper Diaper Incontinent Incontinent Incontinent - Exam GENERAL EXAM: Alert, very pleasant, 63-year-old white female, on 3 L of oxygen with pulse ox of 92%, comfortable in no apparent distress. HEAD: Normocephalic/atraumatic. EYES: Normal reaction of pupils, equal size. Conjunctiva pink, sclera white. NOSE: Clear with pink turbinates. THROAT: No erythema or exudates. NECK: No masses, no JVD, no thyroid enlargement, no adenopathy. CHEST: No chest wall deformity. Symmetrical expansion. LUNGS: Equal air entry with diffuse wheezes, and rhonchi, CVS: Regular rate and rhythm, normal S1 and S2, no gallops, no murmurs, no rubs ABDOMEN: Soft, nontender. No hepatosplenomegaly, normal bowel sounds, no guarding or rigidity. EXTREMITIES: No clubbing, no edema, no cyanosis, 2+ pulses and upper and lower extremities. MUSCULOSKELETAL: Muscle strength and tone normal. SPINE: No scoliosis or deformity SKIN: No rashes CENTRAL NERVOUS SYSTEM: Alert and oriented -3. No focal deficits, tone is normal in all 4 extremities. PSYCHIATRIC: Alert and oriented -3. Appropriate affect. Intact judgment and insight. - Labs CBC & Chem 7: 03/29/19 03:25 04/01/19 05:58 Labs: Abnormal Lab Results - Last 24 Hours (Table) 04/01/19 Range/Units 05:58 Sodium 132 L (137-145) mmol/L Creatinine 0.47 L (0.52-1.04) mg/dL Glucose 133 H (74-99) mg/dL Calcium 7.9 L (8.4-10.2) mg/dL Microbiology - Last 24 Hours (Table) 03/28/19 15:55 Blood Culture - Preliminary Blood No Growth after 72 hours Assessment and Plan Plan: assessment: #1. acute bilateral pneumonia secondary to influenza B #2. Acute on chronic hypoxic respiratory failure related to the above #3. Acute COPD exacerbation secondary to influenza B pneumonia #4. Generalized weakness, fever due to the above #5. Known history of coronary artery disease with previous coronary intervention and stenting #6. Known history of gastric mass, likely benign and the malignant nature has not been established patient has a history of his GI bleeding #7. Chronic anemia #8. CHF with ischemic cardiomyopathy and ejection fraction of 40-45%, status post AICD implantation #9. History of multiple sclerosis #10. History of peripheral neuropathy #11. History of V. tach related to cardiac arrest #12. Thoracic kyphosis and mild degree of scoliosis #13. Hypertension #14. Peripheral vascular disease Plan: Continue current antibiotics, continue Tamiflu, no fever or chills, so congestive bronchospastic, continue IV steroids, nebulized bronchodilators, today's chest x-ray has been reviewed showing hypoventilatory lungs, and interstitial infiltrates right mid and lower lung and background of emphysema. feeling slightly better, encouraged the patient to sit up in the chair, increase activity as tolerated. We'll switch Symbicort to Pulmicort and Perforomist. We'll continue to follow I performed a history & physical examination of the patient and discussed their management with my nurse practitioner, Carmen Lambert. I reviewed the nurse practitioner's note and agree with the documented findings and plan of care. Lung sounds are positive for diffuse wheezes throughout the lung perea. The findings and the impression was discussed with the patient. I attest to the documentation by the nurse practitioner. Time with Patient: Less than 30
[2019-04-01] MEDS: LEVOFLOXACIN 750 MG TAB PO SCH (15:37)
[2019-04-01 17:25] LABS: Glucose,Whole Blood 137 mg/dL (75-99)
[2019-04-01] MEDS: BUDESONIDE 1 MG/2 ML NEBU INHALATION SCH (19:34)
[2019-04-01] MEDS: FORMOTEROL FUMARATE 20 MCG/2 ML NEBU INHALATION SCH (19:34)
[2019-04-01 21:06] LABS: Glucose,Whole Blood 186 mg/dL (75-99)
[2019-04-01] MEDS: guaiFENesin 600 MG TABLET.ER PO SCH (22:17)
[2019-04-01] MEDS: SODIUM CHLORIDE 0.9% 1,000 ML IV SCH (22:18)
[2019-04-02] MEDS: LEVOTHYROXINE 100 MCG TAB PO SCH (06:01)
[2019-04-02 07:07] LABS: African American GFR (CKD) >90 (>60 ml/min/1.73 sqM); Anion Gap 3 mmol/L; Blood Urea Nitrogen 13 mg/dL (7-17); Calcium 7.4 mg/dL (8.4-10.2); Carbon Dioxide 31 mmol/L (22-30); Chloride 99 mmol/L (98-107); Glucose 138 mg/dL (74-99); Non-African American GFR(CKD) >90 (>60 ml/min/1.73 sqM); Potassium 4.1 mmol/L (3.5-5.1); Sodium 133 mmol/L (137-145)
[2019-04-02] MEDS: ARIPiprazole 10 MG TAB PO SCH (08:18)
[2019-04-02] MEDS: ALPRAZolam 0.25 MG TAB PO SCH ×3 (08:18→20:01)
[2019-04-02] MEDS: AMIODARONE 200 MG TAB PO SCH (08:18)
[2019-04-02] MEDS: methylPREDNISolone SOD SUCCI 40 MG/ML 1 ML VIAL IV SCH (08:18)
[2019-04-02] MEDS: PANTOPRAZOLE 40 MG/10 ML VIAL IV SCH ×2 (08:19→20:00)
[2019-04-02] MEDS: ATORVASTATIN 40 MG TAB PO SCH (08:19)
[2019-04-02] MEDS: BACLOFEN 10 MG TAB PO SCH ×2 (08:19→20:00)
[2019-04-02] MEDS: guaiFENesin 600 MG TABLET.ER PO SCH ×2 (08:19→20:00)
[2019-04-02] MEDS: CYANOCOBALAMIN 500 MCG TAB PO SCH (08:19)
[2019-04-02] MEDS: FERROUS SULFATE 325 MG TAB PO SCH ×2 (08:19→20:00)
[2019-04-02] MEDS: FOLIC ACID 1 MG TAB PO SCH (08:19)
[2019-04-02] MEDS: GABAPENTIN 300 MG CAP PO SCH ×3 (08:19→20:00)
[2019-04-02] MEDS: ISOSORBIDE MONONITRATE ER 30 MG TAB.ER.24H PO SCH (08:19)
[2019-04-02] MEDS: THIAMINE 100 MG TAB PO SCH (08:20)
[2019-04-02] MEDS: PRIMIDONE 50 MG TAB PO SCH ×2 (08:20→20:00)
[2019-04-02] MEDS: BUDESONIDE 1 MG/2 ML NEBU INHALATION SCH ×2 (09:34→21:00)
[2019-04-02] MEDS: IPRATROPIUM-ALBUTEROL 3 ML NEB INHALATION SCH ×4 (09:34→20:58)
[2019-04-02] MEDS: FORMOTEROL FUMARATE 20 MCG/2 ML NEBU INHALATION SCH ×2 (09:34→21:00)
[2019-04-02] MEDS: LEVOFLOXACIN 750 MG TAB PO SCH (14:18)
[2019-04-02] MEDS: OSELTAMIVIR 75 MG CAP PO SCH ×2 (14:18→20:02)
--- NOTE | 2019-04-02 19:48 | P.PN ---
Subjective covering for Dr. Bay This is a pleasant 63 old female with past medical history of coronary artery disease, COPD in an ex-smoker, chronic fibromyalgia, GERD, hyperlipidemia, essential hypertension, osteoarthritis, hypothyroid, chronic multiple sclerosis, peripheral neuropathy lower extremity, chronic urinary incontinence. Abdominal mass with history of upper GI bleed.postoperative presents because of dyspnea and found to have bilateral pneumonia secondary to influenza, patient has been evaluated by label fuser tender and she is placed on oral Levaquin of 750 mg daily besides Tamiflu, also patient was started on some Medrol 40 mg and IV Protonix 40 kg twice daily for her history of recent upper GI bleed. This morning patient is still short of breath with some coughing and phlegm. She has generalized body aches and she relates That to her multiple sclerosis.patient complains from mild bilateral leg weakness which she thinks is also related to multiple sclerosis patient is also aware of her abdominal mass diagnosis and she told me she would follow up with Dr. Egan when she will be discharged vital signs stable and she saturates 92% on 3 L oxygen via Nasal cannula.Labs show sodium 132, creatinine 0.4 and magnesium 1.8. 04/02/2019 pt is fully awake and oriented , her breathing is improving since yesterday continue to improved to day , pt has two more doses of tamiflu, c/w oral levaquin and her steroid can be switched to oral prednisone , i discussed the case with pulmonary team and they already signed off the case . pt is medically stable for discharge pending placement as she would need ECF for rehab and pt is agreeable to to to [facility] d/w staff, including bed side RN and SW Objective - Vital Signs Vital signs: Vital Signs Temp 97.3 F L 04/02/19 15:00 Pulse 74 04/02/19 15:45 Resp 16 04/02/19 15:45 BP 107/59 04/02/19 15:00 Pulse Ox 91 L 04/02/19 15:00 Intake & Output 04/01/19 04/02/19 04/02/19 18:59 06:59 18:59 Intake Total 826 480 Output Total 800 600 Balance 26 -120 Weight 54.5 kg Intake: Intake, IV Titration 160 Amount Sodium Chloride 0.9% 1, 160 000 ml @ 20 mls/hr IV . Q24H [facility] Rx#:[id number] Oral 666 480 Output: Urine 800 600 Other: Voiding Method Bedpan Bedpan Diaper Diaper Incontinent Incontinent # Bowel Movements 1 - Exam GENERAL: The patient is alert and oriented x3, not in any acute distress. Well developed, well nourished. HEENT: Pupils are round and equally reacting to light. EOMI. No scleral icterus. No conjunctival pallor. Normocephalic, atraumatic. No pharyngeal erythema. No thyromegaly. CARDIOVASCULAR: S1 and S2 present. No murmurs, rubs, or gallops. -PULMONARY: Chest is clear to auscultation, improved bilateral scattered wheezing and crackles. ABDOMEN: Soft, nontender, nondistended, normoactive bowel sounds. No palpable organomegaly. MUSCULOSKELETAL: No joint swelling or deformity. EXTREMITIES: No cyanosis, clubbing, or pedal edema. NEUROLOGICAL: Gross neurological examination did not reveal any focal deficits. SKIN: No rashes. no petechiae. - Labs CBC & Chem 7: 03/29/19 03:25 04/02/19 06:33 Labs: Abnormal Lab Results - Last 24 Hours (Table) 04/01/19 04/02/19 Range/Units 21:05 06:33 Sodium 133 L (137-145) mmol/L Carbon Dioxide 31 H (22-30) mmol/L Glucose 138 H (74-99) mg/dL POC Glucose (mg/dL) 186 H (75-99) mg/dL Calcium 7.4 L (8.4-10.2) mg/dL Microbiology - Last 24 Hours (Table) 03/28/19 15:55 Blood Culture - Preliminary Blood No Growth after 96 hours Assessment and Plan Assessment: -Acute pneumonitis from influenza type B. . Also be covered for secondary bacterial infection, improving -acute exacerbation of COPD in an ex-smoker -acute GI bleed causing blood loss anemia with recent EGD at [facility] showing gastric ulcer. Last admission patient did require 2 units of blood. Since he was discharged 2 days ago patient again drop her hemoglobin. -Zscgw-rlfazftqb-ikfynko mass, workup done at [facility].-biopsy showing smooth muscle mass, due to follow-up with Dr. Pandya -multiple sclerosis, with possible acute exacerbation -Acute respiratory failure -Solitary gallstone, asymptomatic -Coronary artery disease -Chronic fibromyalgia -GERD -Hyperlipidemia -Essential hypertension -Primary osteoarthritis -Hypothyroid -Chronic multiple sclerosis -Peripheral neuropathy both the lower extremity -Chronic urinary incontinence -Chronic gait dysfunction uses a walker/wheelchair Plan: this is a pleasant 63 years old female who presents with pneumonia, stones and upper GI bleed. Continue with steroids and switch to oral prednisone, continue with IV Protonix, continue with antibiotics in the form of Levaquin and Tamiflu.follow-up with pulmonary recommendation Labs and medication were reviewed.. Continue same treatment. Continue with symptomatic treatment. Resume home medication. Monitor lytes and vitals. DVT and GI prophylaxis. Further recommendations of the clinical course of the p atient DVT prophylaxis:no anticoagulation in view of recent upper GI bleed GI Prophylaxis: Protonix PT/OT: Pending. Patient is supposed to go to ECF upon discharge Prognosis is guarded pt is medically stable for discharge pending placement
[2019-04-02] MEDS ORDERED: predniSONE 20 MG TAB PO STA (19:49)
[2019-04-02] MEDS: oxyCODONE-APAP 5-325MG 1 EACH TAB PO PRN (20:01)
[2019-04-02] MEDS: SODIUM CHLORIDE 0.9% 1,000 ML IV SCH (22:18)
[2019-04-03] MEDS: LEVOTHYROXINE 100 MCG TAB PO SCH (06:23)
[2019-04-03 06:35] LABS: Anisocytosis Slight; Basophils % (A) 0 %; Eosinophils % (A) 0 %; Hypochromasia Moderate; Lymphocytes # (A) 0.5 k/uL (1.0-4.8); Lymphocytes % (A) 7 %; MCH 30.7 pg (25.0-35.0); MCV 95.9 fL (80.0-100.0); Mean Platelet Volume 7.8; Monocytes # (A) 0.3 k/uL (0-1.0); Monocytes % (A) 4 %; Neutrophils # (A) 6.4 k/uL (1.3-7.7); Neutrophils % (A) 88 %; Platelet Count 130 k/uL (150-450); RBC 2.09 m/uL (3.80-5.40); WBC 7.3 k/uL (3.8-10.6)
[2019-04-03 06:42] LABS: African American GFR (CKD) >90 (>60 ml/min/1.73 sqM); Anion Gap 2 mmol/L; Blood Urea Nitrogen 14 mg/dL (7-17); Calcium 7.5 mg/dL (8.4-10.2); Carbon Dioxide 31 mmol/L (22-30); Chloride 101 mmol/L (98-107); Glucose 117 mg/dL (74-99); Magnesium 1.9 mg/dL (1.6-2.3); Non-African American GFR(CKD) >90 (>60 ml/min/1.73 sqM); Potassium 4.1 mmol/L (3.5-5.1); Sodium 134 mmol/L (137-145)
[2019-04-03 06:47] LABS: HGB 6.4 gm/dL (11.4-16.0)
[2019-04-03] MEDS: FORMOTEROL FUMARATE 20 MCG/2 ML NEBU INHALATION SCH ×3 (07:23→20:05)
[2019-04-03] MEDS: BUDESONIDE 1 MG/2 ML NEBU INHALATION SCH ×3 (07:23→20:05)
[2019-04-03] MEDS: IPRATROPIUM-ALBUTEROL 3 ML NEB INHALATION SCH ×4 (07:23→20:05)
[2019-04-03] MEDS: ALPRAZolam 0.25 MG TAB PO SCH ×3 (08:39→21:52)
[2019-04-03] MEDS: CYANOCOBALAMIN 500 MCG TAB PO SCH (08:39)
[2019-04-03] MEDS: predniSONE 20 MG TAB PO SCH (08:39)
[2019-04-03] MEDS: ARIPiprazole 10 MG TAB PO SCH (08:40)
[2019-04-03] MEDS: AMIODARONE 200 MG TAB PO SCH (08:40)
[2019-04-03] MEDS: ATORVASTATIN 40 MG TAB PO SCH (08:40)
[2019-04-03] MEDS: ISOSORBIDE MONONITRATE ER 30 MG TAB.ER.24H PO SCH (08:40)
[2019-04-03] MEDS: FERROUS SULFATE 325 MG TAB PO SCH ×2 (08:40→21:52)
[2019-04-03] MEDS: THIAMINE 100 MG TAB PO SCH (08:40)
[2019-04-03] MEDS: PANTOPRAZOLE 40 MG/10 ML VIAL IV SCH ×2 (08:40→21:51)
[2019-04-03] MEDS: guaiFENesin 600 MG TABLET.ER PO SCH ×2 (08:40→21:52)
[2019-04-03] MEDS: GABAPENTIN 300 MG CAP PO SCH ×3 (08:40→21:52)
[2019-04-03] MEDS: BACLOFEN 10 MG TAB PO SCH ×2 (08:40→21:52)
[2019-04-03] MEDS: PRIMIDONE 50 MG TAB PO SCH ×2 (08:40→21:52)
[2019-04-03] MEDS: FOLIC ACID 1 MG TAB PO SCH (08:40)
[2019-04-03] MEDS: oxyCODONE-APAP 5-325MG 1 EACH TAB PO PRN ×2 (09:02→16:40)
--- NOTE | 2019-04-03 11:22 | P.PN ---
Subjective covering for Dr. Bay This is a pleasant 63 old female with past medical history of coronary artery disease, COPD in an ex-smoker, chronic fibromyalgia, GERD, hyperlipidemia, essential hypertension, osteoarthritis, hypothyroid, chronic multiple sclerosis, peripheral neuropathy lower extremity, chronic urinary incontinence. Abdominal mass with history of upper GI bleed.postoperative presents because of dyspnea and found to have bilateral pneumonia secondary to influenza, patient has been evaluated by communications assistant and she is placed on oral Levaquin of 750 mg daily besides Tamiflu, also patient was started on some Medrol 40 mg and IV Protonix 40 kg twice daily for her history of recent upper GI bleed. This morning patient is still short of breath with some coughing and phlegm. She has generalized body aches and she relates That to her multiple sclerosis.patient complains from mild bilateral leg weakness which she thinks is also related to multiple sclerosis patient is also aware of her abdominal mass diagnosis and she told me she would follow up with Dr. Egan when she will be discharged vital signs stable and she saturates 92% on 3 L oxygen via Nasal cannula.Labs show sodium 132, creatinine 0.4 and magnesium 1.8. 04/02/2019 pt is fully awake and oriented , her breathing is improving since yesterday continue to improved to day , pt has two more doses of tamiflu, c/w oral levaquin and her steroid can be switched to oral prednisone , i discussed the case with pulmonary team and they already signed off the case . pt is medically stable for discharge pending placement as she would need ECF for rehab and pt is agreeable to to to [facility] d/w staff, including bed side RN and SW 04/03/2019 Patient is awake and alert, she still complaining of from some epigastric discomfort with no overt tenderness, no chest pain. Her dyspnea is improving. Vitas looks stable and her blood pressure is on the low normal side chronically since admission. This morning is 96/54. No tachycardia. Labs today showing a drop in her hemoglobin down to 6.4 from 9.45 days ago. Patient denies any overt bleeding in her stool or bowel or urine. No nausea vomiting. No rash or bruises in her skin. Most likely patient has blood oozing/bleeding from her gastric mass, 1 unit of blood transfusion is already ordered and patient agrees to wait after risks/benefits and alternatives are explained. GI team discussed the case with the staff and they recommended continue with antiacids and follow- up with her oncologist to address her abdominal mass. Objective - Vital Signs Vital signs: Vital Signs Temp 98.1 F 04/03/19 11:13 Pulse 92 04/03/19 11:16 Resp 16 04/03/19 11:13 BP 96/54 04/03/19 11:13 Pulse Ox 92 L 04/03/19 11:13 Intake & Output 04/02/19 04/03/19 04/03/19 18:59 06:59 18:59 Intake Total 240 Output Total 1350 Balance -1350 240 Intake: Oral 240 Blood Product 0 Rc As-3 Unit 0 [id number] Output: Urine 1350 Other: Voiding Method Bedpan Bedpan Bedpan Diaper Diaper Diaper Incontinent Incontinent Incontinent # Bowel Movements 1 - Exam GENERAL: The patient is alert and oriented x3, not in any acute distress. Well developed, well nourished. HEENT: Pupils are round and equally reacting to light. EOMI. No scleral icterus. No conjunctival pallor. Normocephalic, atraumatic. No pharyngeal erythema. No thyromegaly. CARDIOVASCULAR: S1 and S2 present. No murmurs, rubs, or gallops. -PULMONARY: Chest is clear to auscultation, improved bilateral scattered wheezing and crackles. ABDOMEN: Soft, nontender, nondistended, normoactive bowel sounds. No palpable organomegaly. MUSCULOSKELETAL: No joint swelling or deformity. EXTREMITIES: No cyanosis, clubbing, or pedal edema. NEUROLOGICAL: Gross neurological examination did not reveal any focal deficits. SKIN: No rashes. no petechiae. - Labs CBC & Chem 7: 04/03/19 05:44 04/03/19 05:44 Labs: Abnormal Lab Results - Last 24 Hours (Table) 03/28/19 04/03/19 04/03/19 Range/Units 15:56 05:44 05:44 RBC 2.09 L (3.80-5.40) m/uL Hgb 6.4 L* D (11.4-16.0) gm/dL Hct 20.0 L (34.0-46.0) % RDW 16.0 H (11.5-15.5) % Plt Count 130 L (150-450) k/uL Lymphocytes # 0.5 L (1.0-4.8) k/uL Sodium 134 L (137-145) mmol/L Carbon Dioxide 31 H (22-30) mmol/L Glucose 117 H (74-99) mg/dL Calcium 7.5 L (8.4-10.2) mg/dL Crossmatch See Detail 04/03/19 Range/Units 07:48 RBC (3.80-5.40) m/uL Hgb (11.4-16.0) gm/dL Hct (34.0-46.0) % RDW (11.5-15.5) % Plt Count (150-450) k/uL Lymphocytes # (1.0-4.8) k/uL Sodium (137-145) mmol/L Carbon Dioxide (22-30) mmol/L Glucose (74-99) mg/dL Calcium (8.4-10.2) mg/dL Crossmatch See Detail Microbiology - Last 24 Hours (Table) 03/28/19 15:55 Blood Culture - Preliminary Blood No Growth after 120 hours Assessment and Plan Assessment: -Acute pneumonitis from influenza type B. . Also be covered for secondary bacterial infection, improving -Acute blood loss anemia, mostly related to her stomach mass. Continue with PPI and blood transfusion 1 -acute exacerbation of COPD in an ex-smoker -acute GI bleed causing blood loss anemia with recent EGD at [facility] showing gastric ulcer. Last admission patient did require 2 units of blood. Since he was discharged 2 days ago patient again drop her hemoglobin. -Ykkrn-irjlsrydl-hxrlgbl mass, workup done at [facility].-biopsy showing smooth muscle mass, due to follow-up with Dr. Pandya -multiple sclerosis, with possible acute exacerbation -Acute respiratory failure -Solitary gallstone, asymptomatic -Coronary artery disease -Chronic fibromyalgia -GERD -Hyperlipidemia -Essential hypertension -Primary osteoarthritis -Hypothyroid -Chronic multiple sclerosis -Peripheral neuropathy both the lower extremity -Chronic urinary incontinence -Chronic gait dysfunction uses a walker/wheelchair Plan: this is a pleasant 63 years old female who presents with pneumonia, stones and upper GI bleed. Continue with steroids and switch to oral prednisone, continue with IV Protonix, continue with antibiotics in the form of Levaquin and Tamiflu.follow-up with pulmonary recommendation. Continue with Protonix twice daily and transfuse went into the bladder. Labs and medication were reviewed.. Continue same treatment. Continue with symptomatic treatment. Resume home medication. Monitor lytes and vitals. DVT and GI prophylaxis. Further recommendations of the clinical course of the patient DVT prophylaxis:no anticoagulation in view of recent upper GI bleed GI Prophylaxis: Protonix PT/OT: Pending. Patient is supposed to go to ECF upon discharge Prognosis is guarded pt is medically stable for discharge pending placement
--- NOTE | 2019-04-03 13:39 | PN ---
PROGRESS NOTE DATE OF DICTATION: April 03, 2019. REQUESTING PHYSICIAN: Dr. Bay. The patient is a 63 -year-old pleasant white female admitted to hospital with bilateral pneumonia/influenza and presently being treated with antibiotics. Since being in the hospital, she has been having intermittent black tarry stools. At the time of admission to the hospital, hemoglobin was 7.1, required one unit of blood transfusion. Hemoglobin went up to 9.3 and today it is down to 6.4. Apparently, this morning, she had 1 black tarry stools. The patient denies any abdominal pain. Reports no nausea, vomiting. The patient was diagnosed with gastric ulcerated mass on upper endoscopy done at [facility] about 6 weeks ago and she is supposed to see Dr. Egan and Surgical Oncology Team at [facility], but this did not happen and she has been having multiple hospitalizations during her appointments. PHYSICAL EXAMINATION: She appears comfortable. No apparent distress. VITAL SIGNS: Stable. Blood pressure is 103/60, pulse rate 83, temperature 97.9. HEENT examination unremarkable. Conjunctivae pink. Sclerae anicteric. Oral cavity no lesions. NECK: No JVD or lymph node enlargement. CHEST: Clear to auscultation. HEART: Regular rate and rhythm. ABDOMEN: Soft. Mild tenderness in the epigastric area. Rest of the abdomen benign. EXTREMITIES: No pedal edema. SKIN no rashes. NEUROLOGIC: Alert and oriented x3. No focal deficits. LABS: Done today WBC is 7.3, hemoglobin 6.4, platelets are 130. The rest of the labs are within normal limits. BUN is 14, creatinine 0.54. IMPRESSION: 1. Anemia with intermittent black tarry stools, most likely related to bleeding from the ulcerated gastric mass that was diagnosed on upper endoscopy 6 weeks ago at [facility]. She is hemodynamically stable. 2. Bilateral pneumonia on antibiotics. RECOMMENDATIONS: 1. Continue IV Protonix. 2. Clear liquid diet. 3. Agree with 1 unit of PRBC transfusion. 4. Repeat CBC in the morning. We will follow with you closely during her hospital stay. Thank you for this consultation. MMODL / IJN: [id number] /
[2019-04-03] MEDS: LEVOFLOXACIN 750 MG TAB PO SCH (16:40)
[2019-04-03] MEDS: ACETAMINOPHEN TAB 325 MG TAB PO PRN (21:52)
[2019-04-04] MEDS: SODIUM CHLORIDE 0.9% 1,000 ML IV SCH (00:53)
[2019-04-04] MEDS: oxyCODONE-APAP 5-325MG 1 EACH TAB PO PRN ×3 (00:57→15:14)
[2019-04-04] MEDS: LEVOTHYROXINE 100 MCG TAB PO SCH (05:44)
[2019-04-04] MEDS: BUDESONIDE 1 MG/2 ML NEBU INHALATION SCH (07:26)
[2019-04-04] MEDS: FORMOTEROL FUMARATE 20 MCG/2 ML NEBU INHALATION SCH (07:26)
[2019-04-04] MEDS: IPRATROPIUM-ALBUTEROL 3 ML NEB INHALATION SCH ×3 (07:26→15:40)
[2019-04-04 07:54] VITALS: RESP 15
[2019-04-04] MEDS: ALPRAZolam 0.25 MG TAB PO SCH ×2 (08:14→15:14)
[2019-04-04] MEDS: CYANOCOBALAMIN 500 MCG TAB PO SCH (08:15)
[2019-04-04] MEDS: FERROUS SULFATE 325 MG TAB PO SCH (08:15)
[2019-04-04] MEDS: AMIODARONE 200 MG TAB PO SCH (08:15)
[2019-04-04] MEDS: GABAPENTIN 300 MG CAP PO SCH ×2 (08:15→15:14)
[2019-04-04] MEDS: predniSONE 20 MG TAB PO SCH (08:15)
[2019-04-04] MEDS: ISOSORBIDE MONONITRATE ER 30 MG TAB.ER.24H PO SCH (08:15)
[2019-04-04 08:16] LABS: Basophils % (A) 0 %; Eosinophils % (A) 0 %; HCT 29.2 % (34.0-46.0); Hypochromasia Slight; Lymphocytes # (A) 1.1 k/uL (1.0-4.8); Lymphocytes % (A) 18 %; MCH 31.5 pg (25.0-35.0); MCHC 33.1 g/dL (31.0-37.0); MCV 95.1 fL (80.0-100.0); Mean Platelet Volume 7.9; Monocytes # (A) 0.4 k/uL (0-1.0); Monocytes % (A) 6 %; Neutrophils # (A) 4.7 k/uL (1.3-7.7); Neutrophils % (A) 75 %; Platelet Count 123 k/uL (150-450); Poikilocytosis Slight; RBC 3.07 m/uL (3.80-5.40); RDW 15.7 % (11.5-15.5); WBC 6.3 k/uL (3.8-10.6)
[2019-04-04] MEDS: THIAMINE 100 MG TAB PO SCH (08:16)
[2019-04-04] MEDS: FOLIC ACID 1 MG TAB PO SCH (08:16)
[2019-04-04] MEDS: guaiFENesin 600 MG TABLET.ER PO SCH (08:16)
[2019-04-04] MEDS: BACLOFEN 10 MG TAB PO SCH (08:16)
[2019-04-04] MEDS: ARIPiprazole 10 MG TAB PO SCH (08:16)
[2019-04-04] MEDS: PRIMIDONE 50 MG TAB PO SCH (08:16)
[2019-04-04] MEDS: ATORVASTATIN 40 MG TAB PO SCH (08:17)
[2019-04-04] MEDS: PANTOPRAZOLE 40 MG/10 ML VIAL IV SCH (08:17)
[2019-04-04 08:20] LABS: HGB 9.7 gm/dL (11.4-16.0)
--- NOTE | 2019-04-04 09:15 | P.DS ---
Providers Date of admission: 03/28/19 18:11 Attending physician: Adolfo Bay Consults: 03/29/19 12:36 Consult Physician Stat Consulting Provider: Fabiola Driver Consult Reason/Comments: pneumonia Do you want consulting provider notified?: Yes 04/03/19 07:14 Consult Physician Routine Consulting Provider: Arabella Solis Consult Reason/Comments: hgb 6.4, recent GI Bleed Do you want consulting provider notified?: Yes Primary care physician: Alexei Vera MD Hospital Course: diagnoses: -Acute pneumonitis from influenza type B. . Also be covered for secondary bacterial infection, improving. Patient finished her therapy with antibiotic with Tamiflu and Levaquin -acute exacerbation of COPD in an ex-smoker -acute GI bleed causing blood loss anemia with recent EGD at [facility] showing gastric ulcer. Last admission patient did require 2 units of blood. With recent drop of hemoglobin 2 days prior to discharge from 9.3 to 6.4. Status post one unit of blood transfusion yesterday. Repeat hemoglobin today is 9.7 -Clrnv-[id number] mass, workup done at [facility].-biopsy showing smooth muscle mass, due to follow-up with Dr. Pandya -multiple sclerosis, with possible acute exacerbation -Acute respiratory failure -Solitary gallstone, asymptomatic -Coronary artery disease -Chronic fibromyalgia -GERD -Hyperlipidemia -Essential hypertension -Primary osteoarthritis -Hypothyroid -Chronic multiple sclerosis -Peripheral neuropathy both the lower extremity -Chronic urinary incontinence -Chronic gait dysfunction uses a walker/wheelchair Hospital course: This is a pleasant 63 yo female with past medical history of coronary artery disease, COPD in an ex-smoker, chronic fibromyalgia, GERD, hyperlipidemia, essential hypertension, osteoarthritis, hypothyroid, chronic multiple sclerosis, peripheral neuropathy lower extremity, chronic urinary incontinence. Abdominal mass with history of upper GI bleed.postoperative presents because of dyspnea and found to have bilateral pneumonia secondary to influenza, patient has been evaluated by rubber goods supervisor and she is placed on oral Levaquin of 750 mg daily besides Tamiflu, also patient was started on some Medrol 40 mg and IV Protonix 40 kg twice daily for her history of recent upper GI bleed and her stomach mass. Patient showed interval improvement in her breathing is significantly improved, however she still mildly dyspneic. She is saturating 96-97% on 2 L oxygen via nasal cannula. rest of vitals looks stable and patient is afebrile. She is a status post one unit of blood transfusion patient denies other symptoms. She denies chest pain. No nausea vomiting. She has some occasional epigastric discomfort mostly related to her stomach mass. No diarrhea. No change in urine habits. No fever Patient was cleared for discharge by pulmonary services Problems and management plan were discussed with the patient and he verbalized understanding and acceptance Patient was found stable and can be discharged home however he needs follow-up as an outpatient. Patient was instructed to follow up with PCP within one week and patient agrees. Also patient was instructed to follow up with her rubber goods supervisor in 1-2 weeks.patient telling me she has an appointment with her oncologist Dr. Egan on 04/17 that she intends to follow-up with for her intra- abdominal mass Gen: patient is a AAOx3, no distress CVS: S1-S2, RRR, no murmur -Lungs: B/L CTA, bilateral mild scattered wheezing Abdomen: soft, no distention, no tenderness, positive bowel sounds Extremity: no leg edema or induration Time spent more than 35 minutes Patient Condition at Discharge: Fair Plan - Discharge Summary New Discharge Prescriptions: New guaiFENesin [Mucinex] 1,200 mg PO Q12HR tablet.er oxyCODONE-APAP 5-325MG [Percocet 5-325 mg] 1 each PO Q8H PRN #6 tab PRN Reason: Pain predniSONE 10 mg PO DIRECTED #40 tab Acetaminophen Tab [Tylenol] 325 mg PO Q6HR PRN tab PRN Reason: Mild Pain Or Fever > 100.5 Ipratropium-Albuterol Nebulize [Duoneb 0.5 mg-3 mg/3 ml Soln] 3 ml INHALATION RT-QID ampul.neb Ipratropium-Albuterol Nebulize [Duoneb 0.5 mg-3 mg/3 ml Soln] 3 ml INHALATION RT-Q2H PRN ampul.neb PRN Reason: Shortness Of Breath Or Wheezing Levofloxacin [Levaquin] 750 mg PO Q24H #7 tab Oseltamivir [Tamiflu] 75 mg PO Q12HR 1 Days #2 cap Continue Folic Acid 1 mg PO DAILY Primidone [Mysoline] 50 mg PO BID Albuterol Nebulized [Ventolin Nebulized] 2.5 mg INHALATION RT-Q6H PRN PRN Reason: Shortness Of Breath Thiamine [Vitamin B-1] 100 mg PO DAILY ARIPiprazole [Abilify] 10 mg PO DAILY Baclofen [Lioresal] 10 mg PO BID Cholecalciferol (Vitamin D3) [Vitamin D3] 2,000 unit PO DAILY Ferrous Sulfate [Iron (65 MG Elemental)] 325 mg PO BID Levothyroxine Sodium [Synthroid] 100 mcg PO DAILY Atorvastatin [Lipitor] 40 mg PO DAILY #30 tab Amiodarone [Cordarone] 200 mg PO DAILY Isosorbide Mononitrate ER [Imdur] 30 mg PO DAILY Cyanocobalamin (Vitamin B-12) [Vitamin B-12] 1,000 mcg PO DAILY Omeprazole 40 mg PO BID Albuterol Sulfate [Proair Hfa] 2 puff INHALATION RT-Q6H PRN PRN Reason: Shortness Of Breath Fluticasone/Salmeterol [Fluticasone-Salmeterol 113-14] 1 puff INHALATION RT- BID Loperamide [Imodium] 2 mg PO DAILY PRN PRN Reason: Diarrhea Gabapentin [Neurontin] 300 mg PO TID #9 cap ALPRAZolam [Xanax] 0.25 mg PO TID #6 tab Discontinued oxyCODONE HCL/ACETAMINOPHEN [Oxycodone-Acetaminophen 5-325] 1 tab PO Q8H PRN PRN Reason: Pain Discharge Medication List Folic Acid 1 mg PO DAILY 04/08/14 [History] Primidone [Mysoline] 50 mg PO BID 04/12/15 [History] Albuterol Nebulized [Ventolin Nebulized] 2.5 mg INHALATION RT-Q6H PRN 04/13/15 [History] Thiamine [Vitamin B-1] 100 mg PO DAILY 04/13/15 [History] ARIPiprazole [Abilify] 10 mg PO DAILY 03/11/17 [History] Baclofen [Lioresal] 10 mg PO BID 07/09/17 [History] Cholecalciferol (Vitamin D3) [Vitamin D3] 2,000 unit PO DAILY 09/27/18 [History] Ferrous Sulfate [Iron (65 MG Elemental)] 325 mg PO BID 09/27/18 [History] Levothyroxine Sodium [Synthroid] 100 mcg PO DAILY 09/27/18 [History] Atorvastatin [Lipitor] 40 mg PO DAILY #30 tab 09/28/18 [Rx] Amiodarone [Cordarone] 200 mg PO DAILY 02/06/19 [History] Isosorbide Mononitrate ER [Imdur] 30 mg PO DAILY 02/06/19 [History] Albuterol Sulfate [Proair Hfa] 2 puff INHALATION RT-Q6H PRN 03/16/19 [History] Cyanocobalamin (Vitamin B-12) [Vitamin B-12] 1,000 mcg PO DAILY 03/16/19 [History] Fluticasone/Salmeterol [Fluticasone-Salmeterol 113-14] 1 puff INHALATION RT-BID 03/16/19 [History] Omeprazole 40 mg PO BID 03/16/19 [History] Loperamide [Imodium] 2 mg PO DAILY PRN 03/22/19 [History] ALPRAZolam [Xanax] 0.25 mg PO TID #6 tab 04/02/19 [Rx] Acetaminophen Tab [Tylenol] 325 mg PO Q6HR PRN tab 04/02/19 [Rx] Gabapentin [Neurontin] 300 mg PO TID #9 cap 04/02/19 [Rx] Ipratropium-Albuterol Nebulize [Duoneb 0.5 mg-3 mg/3 ml Soln] 3 ml INHALATION RT-Q2H PRN ampul.neb 04/02/19 [Rx] Ipratropium-Albuterol Nebulize [Duoneb 0.5 mg-3 mg/3 ml Soln] 3 ml INHALATION RT-QID ampul.neb 04/02/19 [Rx] Levofloxacin [Levaquin] 750 mg PO Q24H #7 tab 04/02/19 [Rx] Oseltamivir [Tamiflu] 75 mg PO Q12HR 1 Days #2 cap 04/02/19 [Rx] guaiFENesin [Mucinex] 1,200 mg PO Q12HR tablet.er 04/02/19 [Rx] oxyCODONE-APAP 5-325MG [Percocet 5-325 mg] 1 each PO Q8H PRN #6 tab 04/02/19 [Rx] predniSONE 10 mg PO DIRECTED #40 tab 04/02/19 [Rx] Follow up Appointment(s)/Referral(s): Jody,Alexei Jason, MD [Primary Care Provider] - 1-2 days Reid Egan MD [STAFF PHYSICIAN] - 04/17/19 3:00 pm Fabiola Driver MD [STAFF PHYSICIAN] - 2 Weeks
--- NOTE | 2019-04-04 10:24 | XR ---
EXAMINATION TYPE: XR chest 1V DATE OF EXAM: 04/04/2019 COMPARISON: Prior chest x-ray 04/01/2019 HISTORY: Follow-up, shortness of breath TECHNIQUE: Single frontal view of the chest is obtained. FINDINGS: Findings are similar to prior exam. Patient is rotated possibly due to underlying scoliosi s. There is a generator in left pectoral region, intracardiac lead is present in the right ventricle. No evident pneumothorax or pleural effusion. Patchy density persists. Heart size is stable. IMPRESSION: There may be some improvement in aeration.
--- NOTE | 2019-04-04 11:44 | PN ---
PROGRESS NOTE DATE OF SERVICE: 04/04/2019 Patient is a 63-year-old pleasant white female admitted to the hospital with pneumonia secondary to influenza on broad-spectrum antibiotics. While in the hospital, she had a couple of episodes of black tarry stools and dropped hemoglobin to 6.4 and received one unit of blood transfusion yesterday. Hemoglobin is up to 9.1 g/dL. She denies any abdominal pain. No nausea, vomiting. No bowel movements today. Continues to complain of shortness of breath. PHYSICAL EXAMINATION: On physical examination, appears comfortable, no apparent distress. Vital signs are stable. Blood pressure is 108/72, pulse is 79, temperature 98.6. HEENT EXAMINATION: Unremarkable. Conjunctivae pink. Sclerae anicteric. Oral cavity no lesions. NECK: No JVD or lymph node enlargement. CHEST: Decreased breath sounds bilaterally. HEART: Regular rate and rhythm. ABDOMEN: Soft. Bowel sounds are positive. No organomegaly. EXTREMITIES: No pedal edema. SKIN: No rashes. NEUROLOGIC: Alert and oriented x3. No focal deficits. LABS: WBC 6.3, hemoglobin 9.7, platelets 123. IMPRESSION: 1. Anemia/melena secondary to ulcerated gastric mass that was diagnosed on upper endoscopy 6 weeks ago at [facility]. The patient is awaiting to see Dr. Egan and physical oncology team at [facility]. She did drop her hemoglobin to 6.4 requiring a unit of blood transfusion yesterday. Now, it is 9.7 clinically no further active bleeding. 2. Bilateral pneumonia secondary to influenza on broad-spectrum antibiotics. 3. Exacerbation of chronic obstructive pulmonary disease. RECOMMENDATIONS: 1. Since her hemoglobin is stable, we will advance her diet today. 2. Continue with Protonix 40 mg q.12 hours. 3. Monitor CBC on a daily basis. 4. No plans for any endoscopic intervention at the present time. 5. We will follow with you closely. Thank you for this consultation. MMODL / IJN: [id number] /
[2019-04-04 13:35] VITALS: BMI 21.9
[2019-04-04] MEDS: ACETAMINOPHEN TAB 325 MG TAB PO PRN (14:21)
[2019-04-04 14:40] VITALS: BP 101/67; TEMP 98.2
[2019-04-04] MEDS: LEVOFLOXACIN 750 MG TAB PO SCH (15:45)
[2019-04-04 15:51] VITALS: PULSE 86
[2019-04-04] MEDS ORDERED: PANTOPRAZOLE 40 MG TABLET PO SCH (21:00)
== END 2019-04-04 16:11 | DRG 193 ==
LOC: EC 15:06 → 3SCARD 18:11 → 4SSUR 04-04 01:01
PROVIDERS: ADMIT Hospitalist; ATTEND Hospitalist
PROC: 30233N1 Transfusion of Nonautologous Red Blood Cells into Peripheral Vein, Percutaneous Approach (ICD-10-PCS; principal; 2019-03-28)
DX: J10.01 Influenza due to other identified influenza virus with the same other identified influenza virus pneumonia (principal); J96.21 Acute and chronic respiratory failure with hypoxia; I50.22 Chronic systolic (congestive) heart failure; J44.0 Chronic obstructive pulmonary disease with (acute) lower respiratory infection; J44.1 Chronic obstructive pulmonary disease with (acute) exacerbation; K51.911 Ulcerative colitis, unspecified with rectal bleeding; R18.8 Other ascites; K92.2 Gastrointestinal hemorrhage, unspecified; I11.0 Hypertensive heart disease with heart failure; D50.0 Iron deficiency anemia secondary to blood loss (chronic); E03.9 Hypothyroidism, unspecified; E78.5 Hyperlipidemia, unspecified; F41.0 Panic disorder [episodic paroxysmal anxiety]; G35 Multiple sclerosis; G62.9 Polyneuropathy, unspecified; I07.1 Rheumatic tricuspid insufficiency; I25.10 Atherosclerotic heart disease of native coronary artery without angina pectoris; I25.2 Old myocardial infarction; I25.5 Ischemic cardiomyopathy; I73.9 Peripheral vascular disease, unspecified; K21.9 Gastro-esophageal reflux disease without esophagitis; K80.20 Calculus of gallbladder without cholecystitis without obstruction; M19.91 Primary osteoarthritis, unspecified site; M40.204 Unspecified kyphosis, thoracic region; M79.7 Fibromyalgia; R32 Unspecified urinary incontinence; G43.909 Migraine, unspecified, not intractable, without status migrainosus; G56.03 Carpal tunnel syndrome, bilateral upper limbs; G89.29 Other chronic pain; H26.9 Unspecified cataract; R19.00 Intra-abdominal and pelvic swelling, mass and lump, unspecified site; F32.9 Major depressive disorder, single episode, unspecified; R26.9 Unspecified abnormalities of gait and mobility; M54.9 Dorsalgia, unspecified; Z79.890 Hormone replacement therapy; Z79.899 Other long term (current) drug therapy; Z88.0 Allergy status to penicillin; Z99.81 Dependence on supplemental oxygen; Z95.810 Presence of automatic (implantable) cardiac defibrillator; Z95.5 Presence of coronary angioplasty implant and graft; Z87.891 Personal history of nicotine dependence; Z87.11 Personal history of peptic ulcer disease; Z86.74 Personal history of sudden cardiac arrest; Z86.010 Personal history of colon polyps; Z90.49 Acquired absence of other specified parts of digestive tract; Z87.440 Personal history of urinary (tract) infections; Z87.01 Personal history of pneumonia (recurrent); Z82.49 Family history of ischemic heart disease and other diseases of the circulatory system; Z81.1 Family history of alcohol abuse and dependence; Z84.89 Family history of other specified conditions
CPT/HCPCS: 36415; 71045; 71046; 74018; 80048; 80053; 81003; 82272; 82550; 83605; 83735; 83880; 84132; 84484; 85025; 85610; 85730; 86850; 86900; 86901; 86920; 87040; 87502; 93005; 94640; 94760; 96361; 96365; 96366; 96367; 96368; 96375; 99285

== ENCOUNTER 2019-04-06 15:44 | Inpatient (IN) | payer OTHER ==
[2019-04-06] MEDS ORDERED: PANTOPRAZOLE 40 MG/10 ML VIAL IVP STA (16:48)
[2019-04-06] MEDS ORDERED: SODIUM CHLORIDE 0.9% 500 ML 500 ML IV STA (16:48)
[2019-04-06] MEDS ORDERED: IPRATROPIUM-ALBUTEROL 3 ML NEB INHALATION STA (16:56)
--- NOTE | 2019-04-06 17:02 | ED ---
GI Bleed HPI - General Chief complaint: GI Bleed Stated complaint: GI Bleed Time Seen by Provider: 04/06/19 15:50 Source: patient Mode of arrival: EMS Limitations: no limitations - History of Present Illness Initial comments: The patient is a 63-year-old female with past history of COPD on chronic home O2, gastric ulcer and intra-abdominal gastric mass who presents to the emergency department with reported GI bleed. [facility] She called EMS today because she was not feeling well and was having dark tarry stools. Patient was recently hospitalized and discharged on the of this month to [facility]. She was diagnosed with influenza and a secondary respiratory bacterial infection. She also had active GI bleeding was given 2 units of blood. She was previously scoped at [facility] and diagnosed with a gastric ulcer as well as an intra-abdominal mass. She sees Dr. Swartz. Patient is currently unaware of the treatment plan for the gastric mass however she does state that she does not want to go back to [facility]. She reports a chronic left upper and left lower abdominal pain. Denies any changes in her abdominal pain. States that she has difficulty telling whether her black stools are due to her iron or if she is having active bleeding. Her staff worker at her facility indicated to her that she thought she was bleeding again and therefore persuaded the patient to come into the emergency room. Denies any worsening of her breathing. States that she has a chronic nonproductive cough. No fevers or chills. No nausea or vomiting. There are no alleviating, precipitating or modifying factors - Related Data Home Medications Medication Instructions Recorded Confirmed Folic Acid 1 mg PO DAILY 04/08/14 04/06/19 Primidone [Mysoline] 50 mg PO BID 04/12/15 04/06/19 Albuterol Nebulized [Ventolin 2.5 mg INHALATION RT-Q6H PRN 04/13/15 04/06/19 Nebulized] Thiamine [Vitamin B-1] 100 mg PO DAILY 04/13/15 04/06/19 ARIPiprazole [Abilify] 10 mg PO DAILY 03/11/17 04/06/19 Baclofen [Lioresal] 10 mg PO BID 07/09/17 04/06/19 Cholecalciferol (Vitamin D3) 2,000 unit PO DAILY 09/27/18 04/06/19 [Vitamin D3] Ferrous Sulfate [Iron (65 MG 325 mg PO BID 09/27/18 04/06/19 Elemental)] Levothyroxine Sodium [Synthroid] 100 mcg PO DAILY 09/27/18 04/06/19 Amiodarone [Cordarone] 200 mg PO DAILY 02/06/19 04/06/19 Isosorbide Mononitrate ER [Imdur] 30 mg PO DAILY 02/06/19 04/06/19 Albuterol Sulfate [Proair Hfa] 2 puff INHALATION RT-Q6H PRN 03/16/19 04/06/19 Cyanocobalamin (Vitamin B-12) 1,000 mcg PO DAILY 03/16/19 04/06/19 [Vitamin B-12] Fluticasone/Salmeterol 1 puff INHALATION RT-BID 03/16/19 04/06/19 [Fluticasone-Salmeterol 113-14] Omeprazole 40 mg PO BID 03/16/19 04/06/19 Loperamide [Imodium] 2 mg PO DAILY PRN 03/22/19 04/06/19 Previous Rx's Medication Instructions Recorded Atorvastatin [Lipitor] 40 mg PO DAILY #30 tab 09/28/18 ALPRAZolam [Xanax] 0.25 mg PO TID #6 tab 04/02/19 Acetaminophen Tab [Tylenol] 325 mg PO Q6HR PRN tab 04/02/19 Gabapentin [Neurontin] 300 mg PO TID #9 cap 04/02/19 Ipratropium-Albuterol Nebulize 3 ml INHALATION RT-Q2H PRN 04/02/19 [Duoneb 0.5 mg-3 mg/3 ml Soln] ampul.neb Ipratropium-Albuterol Nebulize 3 ml INHALATION RT-QID ampul.neb 04/02/19 [Duoneb 0.5 mg-3 mg/3 ml Soln] guaiFENesin [Mucinex] 1,200 mg PO Q12HR tablet.er 04/02/19 oxyCODONE-APAP 5-325MG [Percocet 1 each PO Q8H PRN #6 tab 04/02/19 5-325 mg] predniSONE 10 mg PO DIRECTED #40 tab 04/02/19 Allergies Allergy/AdvReac Type Severity Reaction Status Date / Time Penicillins Allergy Swelling Verified 03/22/19 17:24 Review of Systems ROS Statement: Those systems with pertinent positive or pertinent negative responses have been documented in the HPI. ROS Other: All systems not noted in ROS Statement are negative. Past Medical History Past Medical History: Coronary Artery Disease (CAD), Chest Pain / Angina, Heart Failure, COPD, Eye Disorder, Fibromyalgia, GERD/Reflux, Hyperlipidemia, Hypertension, Myocardial Infarction (GA), Musculoskeletal Disorder, Neurologic Disorder, Osteoarthritis (OA), Pneumonia, Respiratory Disorder, Skin Disorder, Thyroid Disorder, Vascular Disorder Additional Past Medical History / Comment(s): 11/2012 GA with cardiac arrest/vtach, chronic respiratory failure-uses home O2 prn 2-3L/NC, tracheobronchitis, tricuspid regurgitation, multiple sclerosis, neuropathy bilateral legs/feet, chronic back pain, DDD, migraines, bilateral carpal tunnel syndrome, past L/R rib fractures, past L hip fracture with surgery, PUD with ulcer rupture with surgery, peritonitis, pancreatitis, IBS/ ulcerative colitis, chronic anemia, UTIs, urinary incontinence, endometriosis, hypothyroid, R cataract and L eye cataract forming again, PVD, L leg cellulitis, Last Myocardial Infarction Date:: 2012 History of Any Multi-Drug Resistant Organisms: ESBL Date of last positivie culture/infection: 02/18/2014 MDRO Source:: Blood and Urine E. coli ESBL Past Surgical History: AICD, Appendectomy, Heart Catheterization, Heart Catheterization With Stent, Orthopedic Surgery, Pacemaker Additional Past Surgical History / Comment(s): Cardioversion, Laparotomy for ruptured gastric ulcer, R foot fracture with surgery, L hip fracture with surgery-has plate and screw, EGD, colonoscopies with bening polypectomy. Past Anesthesia/Blood Transfusion Reactions: No Reported Reaction Additional Past Anesthesia/Blood Transfusion Reaction / Comment(s): Pt has received blood in past without reaction. Date of Last Stent Placement:: 11/2012 Type of Cardiac Device: Permanent Pacemaker, AICD Device Placement Date:: 2012 Past Psychological History: Anxiety, Bipolar, Depression, Panic Disorder Smoking Status: Former smoker Past Alcohol Use History: None Reported Past Drug Use History: None Reported - Past Family History Mother Family Medical History: Musculoskeletal Disorder Additional Family Medical History / Comment(s): MS Sister(s) Family Medical History: Myocardial Infarction (GA) Additional Family Medical History / Comment(s): SISTER ALSO HAS MS Brother(s) Family Medical History: Musculoskeletal Disorder, Neurologic Disorder Additional Family Medical History / Comment(s): MS Father Additional Family Medical History / Comment(s): ETOH abuse, back surgery General Exam Limitations: no limitations General appearance: alert, in no apparent distress Head exam: Present: atraumatic, normocephalic Eye exam: Present: PERRL, EOMI ENT exam: Present: mucous membranes dry Neck exam: Present: normal inspection. Absent: tenderness Respiratory exam: Present: wheezes, rales. Absent: accessory muscle use Cardiovascular Exam: Present: regular rate, normal rhythm GI/Abdominal exam: Present: soft, tenderness (right upper quadrant) Rectal exam: Present: heme (+) stool, black stool Extremities exam: Present: other (lower extremity weakness - chronic atrophy) Neurological exam: Present: alert Psychiatric exam: Present: normal affect, normal mood Skin exam: Present: warm, dry, intact Course Vital Signs 04/06/19 04/06/19 04/06/19 15:52 17:36 17:44 Temperature 98.1 F Pulse Rate 88 75 76 Pulse Rate [ [employer]ist ] Respiratory 18 18 Rate Blood Pressure 102/63 Blood Pressure [Right Arm] O2 Sat by Pulse 91 L Oximetry 04/06/19 04/06/19 04/06/19 18:00 19:03 20:06 Temperature 97.0 F L Pulse Rate 81 81 79 Pulse Rate [ [employer] Specialist ] Respiratory 18 18 16 Rate Blood Pressure 97/63 103/67 102/70 Blood Pressure [Right Arm] O2 Sat by Pulse 92 L 92 L 98 Oximetry 04/06/19 04/06/19 20:14 20:49 Temperature 98.7 F Pulse Rate 75 Pulse Rate [ 80 [employer] Specialist ] Respiratory 14 12 Rate Blood Pressure Blood Pressure 105/67 [Right Arm] O2 Sat by Pulse 95 99 Oximetry Medical Decision Making - Medical Decision Making Upon arrival the patient was placed into room 22. A thorough history and physical exam was performed. Peripheral IV was established. Rectal exam was performed which demonstrated a moderate amount of black stool. Sample sent for occult testing. I did give the patient a liter bolus of normal saline and 80 mg of Protonix. Laboratory studies were conducted. As the patient is reporting a cough I did repeat a chest x-ray. The patient is typed and screened. Laboratory studies demonstrate a hemoglobin of 7. White blood cell count is elevated at 13.7. Sodium 131. Urinalysis shows large blood, occasional bacteria, 4 hyaline casts and mucus. Fecal occult is positive. Influenza B is also detected. Chest x-rays performed and demonstrates the right lower lobe pneumonia slightly worse. I obtained blood cultures and initiated the patient on Levaquin and Vanco for worsening pneumonia. I will also treat the patient's influenza B by recommendations of Dr. Maicas. The patient's vitals are obtained and she is mildly hypotensive. Because of this I did initiate the patient on one unit of packed red blood cells. I admitted the patient to Dr. Macias. After discussion with him he does recommend a second unit of blood. I will consult Dr. Solis and Dr. Egan because of her gastric mass. I called and discussed the case with Dr. Richardson who accepted admission for the patient to the intensive care unit. The patient was transferred to floor in critical yet stable condition - Lab Data Result diagrams: 04/08/19 22:45 04/08/19 22:45 Lab Results 04/06/19 04/06/19 04/06/19 Range/Units 17:00 17:00 17:00 WBC 13.7 H (3.8-10.6) k/uL RBC 2.24 L (3.80-5.40) m/uL Hgb 7.0 L D (11.4-16.0) gm/dL Hct 21.2 L (34.0-46.0) % MCV 94.3 (80.0-100.0) fL MCH 31.1 (25.0-35.0) pg MCHC 33.0 (31.0-37.0) g/dL RDW 15.3 (11.5-15.5) % Plt Count 217 (150-450) k/uL Neutrophils % 92 % Lymphocytes % 5 % Monocytes % 3 % Eosinophils % 0 % Basophils % 0 % Neutrophils # 12.5 H (1.3-7.7) k/uL Lymphocytes # 0.6 L (1.0-4.8) k/uL Monocytes # 0.4 (0-1.0) k/uL Eosinophils # 0.0 (0-0.7) k/uL Basophils # 0.0 (0-0.2) k/uL Hypochromasia Slight PT 11.5 (9.0-12.0) sec INR 1.1 (<1.2) APTT 24.8 (22.0-30.0) sec Sodium 131 L (137-145) mmol/L Potassium 4.5 (3.5-5.1) mmol/L Chloride 97 L (98-107) mmol/L Carbon Dioxide 32 H (22-30) mmol/L Anion Gap 2 mmol/L BUN 20 H (7-17) mg/dL Creatinine 0.59 (0.52-1.04) mg/dL Est GFR (CKD-EPI)AfAm >90 (>60 ml/min/1.73 sqM) Est GFR (CKD-EPI)NonAf >90 (>60 ml/min/1.73 sqM) Glucose 114 H (74-99) mg/dL Plasma Lactic Acid Zaki (0.7-2.0) mmol/L Calcium 7.4 L (8.4-10.2) mg/dL Total Bilirubin 0.5 (0.2-1.3) mg/dL AST 47 H (14-36) U/L ALT 23 (4-34) U/L Alkaline Phosphatase 38 (38-126) U/L Creatine Kinase 35 (30-135) U/L Troponin I (0.000-0.034) ng/mL Total Protein 4.3 L (6.3-8.2) g/dL Albumin 2.0 L (3.5-5.0) g/dL Lipase 246 (23-300) U/L Urine Color Urine Appearance (Clear) Urine pH (5.0-8.0) Ur Specific [place] (1.001-1.035) Urine Protein (Negative) Urine Glucose (UA) (Negative) Urine Ketones (Negative) Urine Blood (Negative) Urine Nitrite (Negative) Urine Bilirubin (Negative) Urine Urobilinogen (<2.0) mg/dL Ur Leukocyte Esterase (Negative) Urine RBC (0-5) /hpf Urine WBC (0-5) /hpf Ur Squamous Epith Cells (0-4) /hpf Urine Bacteria (None) /hpf Hyaline Casts (0-2) /lpf Urine Mucus (None) /hpf Stool Occult Blood (Negative) Influenza Type A RNA (Not Detectd) Influenza Type B (PCR) (Not Detectd) Blood Type Blood Type Recheck Bld Type Recheck Status Antibody Screen Crossmatch Spec Expiration Date 04/06/19 04/06/19 04/06/19 Range/Units 17:00 17:00 17:00 WBC (3.8-10.6) k/uL RBC (3.80-5.40) m/uL Hgb (11.4-16.0) gm/dL Hct (34.0-46.0) % MCV (80.0-100.0) fL MCH (25.0-35.0) pg MCHC (31.0-37.0) g/dL RDW (11.5-15.5) % Plt Count (150-450) k/uL Neutrophils % % Lymphocytes % % Monocytes % % Eosinophils % % Basophils % % Neutrophils # (1.3-7.7) k/uL Lymphocytes # (1.0-4.8) k/uL Monocytes # (0-1.0) k/uL Eosinophils # (0-0.7) k/uL Basophils # (0-0.2) k/uL Hypochromasia PT (9.0-12.0) sec INR (<1.2) APTT (22.0-30.0) sec Sodium (137-145) mmol/L Potassium (3.5-5.1) mmol/L Chloride (98-107) mmol/L Carbon Dioxide (22-30) mmol/L Anion Gap mmol/L BUN (7-17) mg/dL Creatinine (0.52-1.04) mg/dL Est GFR (CKD-EPI)AfAm (>60 ml/min/1.73 sqM) Est GFR (CKD-EPI)NonAf (>60 ml/min/1.73 sqM) Glucose (74-99) mg/dL Plasma Lactic Acid Zaki 1.0 (0.7-2.0) mmol/L Calcium (8.4-10.2) mg/dL Total Bilirubin (0.2-1.3) mg/dL AST (14-36) U/L ALT (4-34) U/L Alkaline Phosphatase (38-126) U/L Creatine Kinase (30-135) U/L Troponin I <0.012 (0.000-0.034) ng/mL Total Protein (6.3-8.2) g/dL Albumin (3.5-5.0) g/dL Lipase (23-300) U/L Urine Color Urine Appearance (Clear) Urine pH (5.0-8.0) Ur Specific [place] (1.001-1.035) Urine Protein (Negative) Urine Glucose (UA) (Negative) Urine Ketones (Negative) Urine Blood (Negative) Urine Nitrite (Negative) Urine Bilirubin (Negative) Urine Urobilinogen (<2.0) mg/dL Ur Leukocyte Esterase (Negative) Urine RBC (0-5) /hpf Urine WBC (0-5) /hpf Ur Squamous Epith Cells (0-4) /hpf Urine Bacteria (None) /hpf Hyaline Casts (0-2) /lpf Urine Mucus (None) /hpf Stool Occult Blood (Negative) Influenza Type A RNA (Not Detectd) Influenza Type B (PCR) (Not Detectd) Blood Type A Positive Blood Type Recheck A Pos Bld Type Recheck Status No Antibody Screen NEGATIVE Crossmatch See Detail Spec Expiration Date 04/09/2019 - 229904/06/19 04/06/19 04/06/19 Range/Units 17:14 17:33 18:50 WBC (3.8-10.6) k/uL RBC (3.80-5.40) m/uL Hgb (11.4-16.0) gm/dL Hct (34.0-46.0) % MCV (80.0-100.0) fL MCH (25.0-35.0) pg MCHC (31.0-37.0) g/dL RDW (11.5-15.5) % Plt Count (150-450) k/uL Neutrophils % % Lymphocytes % % Monocytes % % Eosinophils % % Basophils % % Neutrophils # (1.3-7.7) k/uL Lymphocytes # (1.0-4.8) k/uL Monocytes # (0-1.0) k/uL Eosinophils # (0-0.7) k/uL Basophils # (0-0.2) k/uL Hypochromasia PT (9.0-12.0) sec INR (<1.2) APTT (22.0-30.0) sec Sodium (137-145) mmol/L Potassium (3.5-5.1) mmol/L Chloride (98-107) mmol/L Carbon Dioxide (22-30) mmol/L Anion Gap mmol/L BUN (7-17) mg/dL Creatinine (0.52-1.04) mg/dL Est GFR (CKD-EPI)AfAm (>60 ml/min/1.73 sqM) Est GFR (CKD-EPI)NonAf (>60 ml/min/1.73 sqM) Glucose (74-99) mg/dL Plasma Lactic Acid Zaki (0.7-2.0) mmol/L Calcium (8.4-10.2) mg/dL Total Bilirubin (0.2-1.3) mg/dL AST (14-36) U/L ALT (4-34) U/L Alkaline Phosphatase (38-126) U/L Creatine Kinase (30-135) U/L Troponin I (0.000-0.034) ng/mL Total Protein (6.3-8.2) g/dL Albumin (3.5-5.0) g/dL Lipase (23-300) U/L Urine Color Yellow Urine Appearance Clear (Clear) Urine pH 6.0 (5.0-8.0) Ur Specific [place] 1.021 (1.001-1.035) Urine Protein Trace H (Negative) Urine Glucose (UA) Negative (Negative) Urine Ketones Negative (Negative) Urine Blood Large H (Negative) Urine Nitrite Negative (Negative) Urine Bilirubin Negative (Negative) Urine Urobilinogen <2.0 (<2.0) mg/dL Ur Leukocyte Esterase Negative (Negative) Urine RBC 7 H (0-5) /hpf Urine WBC 2 (0-5) /hpf Ur Squamous Epith Cells 2 (0-4) /hpf Urine Bacteria Occasional H (None) /hpf Hyaline Casts 4 H (0-2) /lpf Urine Mucus Rare H (None) /hpf Stool Occult Blood Positive H (Negative) Influenza Type A RNA Not Detected (Not Detectd) Influenza Type B (PCR) Detected H (Not Detectd) Blood Type Blood Type Recheck Bld Type Recheck Status Antibody Screen Crossmatch Spec Expiration Date - EKG Data EKG Comments: EKG demonstrates sinus rhythm with occasional PVC. Rate of 79. IA interval 134. QRS 58. QTC 401. There is minimal voltage overall. No acute ST segment patient depressions concerning for ischemic changes Critical Care Time Critical Care Time: Yes Total Critical Care Time: 35 (mins) Disposition Clinical Impression: Anemia, Stool guaiac positive, Community acquired pneumonia, Influenza B, GI bleed Disposition: ADMITTED IP TO THIS [facility] Condition: Serious Is patient prescribed a controlled substance at d/c from ED?: No Decision to Admit Reason: Admit from EC Decision Date: 04/06/19 Decision Time: 19:08
[2019-04-06 17:31] LABS: Basophils % (A) 0 %; Eosinophils % (A) 0 %; HCT 21.2 % (34.0-46.0); Hypochromasia Slight; Lymphocytes # (A) 0.6 k/uL (1.0-4.8); Lymphocytes % (A) 5 %; MCH 31.1 pg (25.0-35.0); MCV 94.3 fL (80.0-100.0); Mean Platelet Volume 7.9; Monocytes # (A) 0.4 k/uL (0-1.0); Monocytes % (A) 3 %; Neutrophils # (A) 12.5 k/uL (1.3-7.7); Neutrophils % (A) 92 %; Platelet Count 217 k/uL (150-450); RBC 2.24 m/uL (3.80-5.40); RDW 15.3 % (11.5-15.5); WBC 13.7 k/uL (3.8-10.6)
[2019-04-06 17:40] LABS: INR 1.1 (<1.2); Partial Thromboplastin Time 24.8 sec (22.0-30.0); Prothrombin Time 11.5 sec (9.0-12.0)
[2019-04-06 17:46] LABS: ALT 23 U/L (4-34); AST 47 U/L (14-36); African American GFR (CKD) >90 (>60 ml/min/1.73 sqM); Alkaline Phosphatase 38 U/L (38-126); Anion Gap 2 mmol/L; Blood Urea Nitrogen 20 mg/dL (7-17); Calcium 7.4 mg/dL (8.4-10.2); Carbon Dioxide 32 mmol/L (22-30); Chloride 97 mmol/L (98-107); Creatine Kinase 35 U/L (30-135); Glucose 114 mg/dL (74-99); Non-African American GFR(CKD) >90 (>60 ml/min/1.73 sqM); Potassium 4.5 mmol/L (3.5-5.1); Sodium 131 mmol/L (137-145); Total Bilirubin 0.5 mg/dL (0.2-1.3); Total Protein 4.3 g/dL (6.3-8.2)
--- NOTE | 2019-04-06 18:17 | XR ---
EXAMINATION TYPE: XR chest 2V DATE OF EXAM: 04/06/2019 COMPARISON: 04/04/2019 HISTORY: Follow-up pneumonia TECHNIQUE: 2 views FINDINGS: There is blunting of the costophrenic angles. There is a mild patchy airspace infiltrate ri ght lower lobe. There is no heart failure. There is a left axillary pacemaker. IMPRESSION: Right lower lobe pneumonia slightly worse than last exam. Pleural effusions. No obvious h eart failure.
[2019-04-06] MEDS ORDERED: SODIUM CHLORIDE 0.9% 500 ML 500 ML IV ONE (19:00)
[2019-04-06] MEDS ORDERED: NALOXONE 0.4 MG/ML 1 ML VIAL IV PRN (19:08)
[2019-04-06] MEDS ORDERED: LEVOFLOXACIN 750MG-D5W PMX 750 MG in DEXTROSE/WATER 1 150ML.BAG IVPB STA (19:12)
[2019-04-06 19:19] LABS: Appearance,Urine Clear (Clear); Bacteria,Urine Occasional /hpf; Bilirubin,Urine Negative (Negative); Blood,Urine Large (Negative); Color,Urine Yellow; Glucose,Urine (UA) Negative (Negative); Hyaline Casts,Urine 4 /lpf (0-2); Ketones,Urine Negative (Negative); Leukocyte Esterase,Urine Negative (Negative); Mucus,Urine Rare /hpf; Nitrite,Urine Negative (Negative); Protein,Urine Trace (Negative); RBC,Urine 7 /hpf (0-5); Specific Gravity,Urine 1.021 (1.001-1.035); Squamous Epithelial Cell,Urine 2 /hpf (0-4); Urobilinogen,Urine <2.0 mg/dL (<2.0); WBC,Urine 2 /hpf (0-5)
[2019-04-06] MEDS ORDERED: VANCOMYCIN 1,250 MG in SODIUM CHLORIDE 0.9% 250 ML IVPB ONE (20:00)
[2019-04-06] MEDS ORDERED: OSELTAMIVIR 75 MG CAP PO SCH (20:30)
[2019-04-06 20:52] LABS: Glucose,Whole Blood 124 mg/dL (75-99)
[2019-04-06] MEDS ORDERED: OSELTAMIVIR 60 MG/10 ML ORAL SYRINGE PO SCH (20:55)
[2019-04-06] MEDS ORDERED: FERROUS SULFATE 325 MG TAB PO SCH (21:00)
[2019-04-06] MEDS ORDERED: guaiFENesin 600 MG TABLET.ER PO SCH (21:00)
[2019-04-06] MEDS ORDERED: IPRATROPIUM-ALBUTEROL 3 ML NEB INHALATION SCH (21:00)
[2019-04-06] MEDS ORDERED: ALBUTEROL NEBULIZED 2.5 MG/3 ML INHALATION PRN ×2 (21:05)
[2019-04-06] MEDS: SYMBICORT 160-4.5 MCG INHALER INHALATION SCH (21:48)
[2019-04-06] MEDS: GABAPENTIN 300 MG CAP PO SCH (22:07)
[2019-04-06] MEDS: ALPRAZolam 0.25 MG TAB PO SCH (22:07)
[2019-04-06] MEDS: oxyCODONE-APAP 5-325MG 1 EACH TAB PO PRN (22:07)
--- NOTE | 2019-04-06 23:31 | HP ---
HISTORY AND PHYSICAL DATE OF SERVICE: 04/06/2019 CHIEF COMPLAINT: GI bleed. HISTORY OF PRESENT ILLNESS: This 63-year-old woman with a past medical history of multiple medical problems, was recently admitted with acute pneumonitis, influenza B and as well as acute blood loss anemia, and multiple other medical problems. The patient is followed by [facility] in the outpatient setting. The patient apparently in [facility] at this time. The patient also has history of CAD, CHF, COPD, GERD, hypertension, hyperlipidemia, and multiple other medical problems also. In [facility], the patient was noted to have GI bleed. The patient had recently had 2 units of blood. The patient also had evaluated in [facility] and gastric ulcer or gastric tumor was noted. The details are not available at this time. The patient came to the [facility] Emergency Room and admitted for evaluation and treatment. Hemoglobin is found to be 7. Influenza B still positive. The option of going to [facility] was given by the ER physician, but the patient refused. Patient admitted for further evaluation and treatment. There is no history of headache, loss of consciousness or seizures. Patient is mildly confused. One unit of transfusion has been arranged. PAST MEDICAL HISTORY: History of CAD, CHF, COPD, GERD, hypertension, hyperlipidemia, myocardial infarction. MEDICATIONS: 1. Prednisone 10 mg p.o. p.r.n. 2. Oxycodone q.8h p.r.n. 3. Mucinex 200 mg p.o. b.i.d. 4. Vitamin B1 100 mg p.o. daily. 5. Mysoline 50 mg p.o. b.i.d. 6. Omeprazole 40 mg p.o. b.i.d. 7. Imodium 2 mg q.i.d. p.r.n. 8. Synthroid 100 mcg p.o. daily. 9. Imdur 30 mg p.o. daily. 10.DuoNeb q.i.d. and p.r.n. 11.Neurontin 300 mg b.i.d. 12.Folic acid 1 mg p.o. daily. 13.Fluticasone salmeterol 1 puff b.i.d. 14.Iron sulfate 320 mg p.o. b.i.d. 15.Vitamin B12 1000 mcg p.o. daily. 16.Vitamin D3 2000 daily. 17.Lioresal 10 mg p.o. b.i.d. 18.Lipitor 40 mg p.o. daily. 19.Cordarone 200 mg p.o. daily. 20.ProAir HFA 2 puffs q.6h p.r.n. 21.Ventolin 2.5 q.6h p.r.n. 22.Tylenol 320 mg q.6h p.r.n. 23.Abilify 10 mg p.o. daily. 24.Xanax 0.5 t.i.d. ALLERGIES: PENICILLIN. FAMILY HISTORY: History of muscular disorder, multiple sclerosis. SOCIAL HISTORY: Previous history of smoking. No history of current smoking. REVIEW OF SYSTEMS: ENT diminished vision. Diminished hearing. CARDIOVASCULAR: No angina or palpitations. RESPIRATION: As mentioned earlier. GI As mentioned earlier. no dysuria or hematuria. Nervous systems: No numbness or weakness. Allergies/Immunology: No asthma or hayfever. MUSCULOSKELETAL as mentioned earlier. HEMATOLOGY/ONCOLOGY: No history of anemia. ENDOCRINE: No history of diabetes or hypothyroidism. CONSTITUTIONAL: As mentioned earlier. DERMATOLOGY: Negative. RHEUMATOLOGY: Negative. PSYCHIATRIC: As mentioned earlier. PHYSICAL EXAMINATION: Alert and oriented times three. Pulse 79. Blood pressure 100/77, respirations 16, temperature 97 degrees, pulse ox 98% on 2 L. HEENT: Conjunctivae normal. Oral mucosa moist. NECK is no jugular venous distention. No carotid bruit. No lymph node enlargement. CARDIOVASCULAR system: S1, S2 muffled. No S3, no S4. RESPIRATORY: Breath sounds diminished in the bases. Bilateral scattered rhonchi and crackles. ABDOMEN: Soft, nontender. No mass palpable. LEGS: No edema. No swelling. NERVOUS SYSTEM: Higher functions as mentioned earlier. Moves all 4 limbs. No focal motor or sensory deficits. Lymphatics: No lymph nodes palpable in the neck, axillae or groin. SKIN: No ulcer, no rashes and no bleeding. JOINTS: No active deforming arthropathy. LAB STUDIES: WBC 13.2, hemoglobin 7. Sodium 131. Influenza B is positive. ASSESSMENT: 1. Acute blood loss anemia with possibly bleeding from gastric ulcer or gastric mass. 2. Increased WBC. 3. Influenza B positive. 4. Hyponatremia. 5. History of recent hospital admission for acute pneumonitis from influenza B. 6. History of chronic obstructive pulmonary disease. 7. History of recent gastrointestinal bleed. 8. Intraabdominal gastric mass. 9. History of coronary artery disease. 10.History of congestive heart failure. 11.Chronic obstructive pulmonary disease. 12.Fibromyalgia. 13.Gastroesophageal reflux disease. 14.Hypertension. 15.Hyperlipidemia. 16.Myocardial infarction. 17.History of degenerative joint disease. 18.History of pneumonia. 19.History of gait dysfunction. 20.History of cardiac arrest with ventricular tachycardia. 21.Chronic hypoxic respiratory failure, O2 2-3 L nasal cannula. 22.Multiple sclerosis. 23.History of peripheral neuropathy. 24.Carpal tunnel syndrome. 25.History of degenerative joint disease. 26.History of irritable bowel syndrome. 27.Ulcerative colitis. 28.History of peripheral vascular disease. 29.History of ESBL. 30.History of AICD. 31.History of coronary artery disease/ stent. 32.History of permanent pacemaker. 33.History of anxiety, bipolar depression, panic disorder. 34.FULL CODE. RECOMMENDATIONS AND DISCUSSION: In this 63-year-old woman who presented with multiple complex medical issues, we will monitor the patient closely, continue the current medications, management and symptomatic treatment. Otherwise I would recommend H&H q.6 and transfusion if hemoglobin less than 7. Consult Gastroenterology. Consult Dr. Egan team and as well as Dr. Lee for ICU management. Also recommend continue with another course of Tamiflu. Resume the home medications. Avoid antiplatelets and anticoagulants. Guarded prognosis because of multiple complex medical issues. Further recommendations to follow. See orders for details. MMODL / IJN: [id number] /
[2019-04-06] MEDS: IPRATROPIUM-ALBUTEROL 3 ML NEB INHALATION SCH (23:42)
[2019-04-07] MEDS: IPRATROPIUM-ALBUTEROL 3 ML NEB INHALATION SCH ×5 (03:13→18:59)
[2019-04-07] MEDS: LEVOTHYROXINE 100 MCG TAB PO SCH (06:07)
[2019-04-07 06:17] LABS: African American GFR (CKD) >90 (>60 ml/min/1.73 sqM); Anion Gap 2 mmol/L; Blood Urea Nitrogen 19 mg/dL (7-17); Calcium 7.3 mg/dL (8.4-10.2); Carbon Dioxide 28 mmol/L (22-30); Chloride 101 mmol/L (98-107); Glucose 58 mg/dL (74-99); Non-African American GFR(CKD) >90 (>60 ml/min/1.73 sqM); Potassium 4.4 mmol/L (3.5-5.1); Sodium 131 mmol/L (137-145)
[2019-04-07 06:39] LABS: Glucose,Whole Blood 105 mg/dL (75-99)
[2019-04-07 06:42] LABS: Basophils % (A) 0 %; Eosinophils % (A) 0 %; HCT 29.7 % (34.0-46.0); Lymphocytes # (A) 1.5 k/uL (1.0-4.8); Lymphocytes % (A) 13 %; MCH 30.4 pg (25.0-35.0); MCHC 33.8 g/dL (31.0-37.0); MCV 89.7 fL (80.0-100.0); Mean Platelet Volume 8.1; Monocytes # (A) 0.6 k/uL (0-1.0); Monocytes % (A) 5 %; Neutrophils # (A) 9.1 k/uL (1.3-7.7); Neutrophils % (A) 80 %; Platelet Count 134 k/uL (150-450); Poikilocytosis Moderate; RBC 3.31 m/uL (3.80-5.40); RDW 15.8 % (11.5-15.5); WBC 11.4 k/uL (3.8-10.6)
[2019-04-07] MEDS: SYMBICORT 160-4.5 MCG INHALER INHALATION SCH ×2 (06:59→18:59)
--- NOTE | 2019-04-07 07:28 | XR ---
EXAMINATION TYPE: XR chest 1V portable DATE OF EXAM: 04/07/2019 COMPARISON: 04/06/2019 HISTORY: Abnormal x-ray TECHNIQUE: Single frontal view of the chest is obtained. FINDINGS: There is blunting of the costophrenic angles. There is a mild patchy airspace infiltrate r ight lower lobe. There is no heart failure. There is a left axillary pacemaker. IMPRESSION: Small bilateral effusions and patchy basilar atelectasis or infiltrate. Cardiomegaly and COPD appears stable. Mild central venous congestion not excluded
[2019-04-07] MEDS: oxyCODONE-APAP 5-325MG 1 EACH TAB PO PRN ×2 (08:44→17:35)
[2019-04-07] MEDS: ALPRAZolam 0.25 MG TAB PO SCH ×3 (08:44→21:33)
[2019-04-07] MEDS: PANTOPRAZOLE 40 MG/10 ML VIAL IVP SCH ×2 (08:46→20:55)
[2019-04-07] MEDS: AMIODARONE 200 MG TAB PO SCH (08:46)
[2019-04-07] MEDS: ARIPiprazole 10 MG TAB PO SCH (08:46)
[2019-04-07] MEDS: GABAPENTIN 300 MG CAP PO SCH ×3 (08:46→20:55)
[2019-04-07] MEDS: BACLOFEN 10 MG TAB PO SCH ×2 (08:46→20:56)
[2019-04-07] MEDS: PRIMIDONE 50 MG TAB PO SCH ×2 (08:47→20:56)
[2019-04-07] MEDS: FUROSEMIDE 10 MG/ML 2 ML VIAL IV SCH ×2 (08:48→20:55)
[2019-04-07] MEDS ORDERED: FOLIC ACID 1 MG TAB PO SCH (09:00)
[2019-04-07] MEDS ORDERED: PANTOPRAZOLE 40 MG/10 ML VIAL IV SCH (09:00)
[2019-04-07] MEDS ORDERED: CYANOCOBALAMIN 500 MCG TAB PO SCH (09:00)
[2019-04-07] MEDS: ISOSORBIDE MONONITRATE ER 30 MG TAB.ER.24H PO SCH (10:00)
--- NOTE | 2019-04-07 10:44 | P.CNPUL ---
History of Present Illness Consult date: 04/07/19 Requesting physician: Devyn Macias Reason for consult: other (GI bleeding) Chief complaint: Dark stools, GI bleeding History of present illness: This is a 63-year-old female with history of multiple medical problems including severe COPD, chronic hypoxic respiratory failure secondary to COPD, O2 dependent. History of intra-abdominal gastric mass which was recently evaluated at [facility], supposedly the patient underwent EGD and biopsy, however no information could be obtained in the chart. Patient has no clue as what she has and she refused apparently to be transferred to [facility] yesterday from the ER. Patient presented from [facility] as a transfer because she was not feeling well and having dark tarry stools. She was recently in the hospital and discharged on the of this month to [facility]. She had a diagnosis of influenza and pneumonia. She also had active GI bleeding at the time, and she received 2 units of packed RBCs on the last admission. Patient underwent EGD at [facility], and she was diagnosed with a gastric ulcer and intra-abdominal mass. She is not aware of the treatment plan for her gastric mass, however she was referred to see Dr. Egan. Patient has chronic left upper and left lower abdominal pain, no nausea no vomiting no hematemesis. Upon her initial evaluation in the ER, her hemoglobin was 7, and was just recently over 9. Hence the patient received a total of 2 units of packed RBCs since admission last night, and hemoglobin is 10.0 this morning. Looking at the last note from Dr. Herrera, patient apparently had an ulcerated gastric mass, but no final tissue diagnosis is available. Patient had recent episode of exacerbation of COPD and she was seen by Dr. Driver she also had bilateral pneumonia with influenza. Chest x-ray on this admission showed small bilateral pleural effusions, patchy basilar atelectasis or infiltrates, hence the patient will be given antibiotics empirically, and she was also placed on diuretics. Review of Systems Constitutional: Fatigue and poor appetite. No fever no chills. Eyes: Denies any blurred vision, no diplopia, no visual changes. Ears: deny: decreased hearing, ear discharge, earache, tinnitus Ears, nose, mouth and throat: Denies headache, Denies sore throat Cardiovascular: Reports decreased exercise tolerance, Reports dyspnea on exertion, Reports leg edema, Reports shortness of breath Respiratory: Reports cough, Reports excessive sputum, Reports home oxygen, Reports wheezing Gastrointestinal: As noted in HPI, chronic abdominal pain, and melena. Genitourinary: No dysuria frequency urgency or hematuria. Musculoskeletal: Reports most generalized weakness, myalgia, no limitation in range of motion Integumentary: Denies skin rashes or pruritus. Neurological: Denies headache blurred vision dizziness. Psychiatric: Denies symptoms of active depression Endocrine: Reports fatigue, denies heat or cold intolerance. Hematologic/Lymphatic: Denies any clotting bleeding or bruising Past Medical History Past Medical History: Coronary Artery Disease (CAD), Chest Pain / Angina, Heart Failure, COPD, Eye Disorder, Fibromyalgia, GERD/Reflux, Hyperlipidemia, Hypertension, Myocardial Infarction (IA), Musculoskeletal Disorder, Neurologic Disorder, Osteoarthritis (OA), Pneumonia, Respiratory Disorder, Skin Disorder, Thyroid Disorder, Vascular Disorder Additional Past Medical History / Comment(s): 11/2012 IA with cardiac arres t/vtach, chronic respiratory failure-uses home O2 prn 2-3L/NC, tracheobronchitis, tricuspid regurgitation, multiple sclerosis, neuropathy bilateral legs/feet, chronic back pain, DDD, migraines, bilateral carpal tunnel syndrome, past L/R rib fractures, past L hip fracture with surgery, PUD with ulcer rupture with surgery, peritonitis, pancreatitis, IBS/ ulcerative colitis, chronic anemia, UTIs, urinary incontinence, endometriosis, hypothyroid, R cataract and L eye cataract forming again, PVD, L leg cellulitis, Last Myocardial Infarction Date:: 2012 History of Any Multi-Drug Resistant Organisms: ESBL Date of last positivie culture/infection: 02/18/2014 MDRO Source:: Blood and Urine E. coli ESBL Past Surgical History: AICD, Appendectomy, Heart Catheterization, Heart C atheterization With Stent, Orthopedic Surgery, Pacemaker Additional Past Surgical History / Comment(s): Cardioversion, Laparotomy for ruptured gastric ulcer, R foot fracture with surgery, L hip fracture with surgery-has plate and screw, EGD, colonoscopies with bening polypectomy. Past Anesthesia/Blood Transfusion Reactions: No Reported Reaction Additional Past Anesthesia/Blood Transfusion Reaction / Comment(s): Pt has rec eived blood in past without reaction. Date of Last Stent Placement:: 11/2012 Type of Cardiac Device: Permanent Pacemaker, AICD Device Placement Date:: 2012 Past Psychological History: Anxiety, Bipolar, Depression, Panic Disorder Smoking Status: Former smoker Past Alcohol Use History: None Reported Past Drug Use History: None Reported - Past Family History Mother Family Medical History: Musculoskeletal Disorder Additional Family Medical History / Comment(s): MS Sister(s) Family Medical History: Myocardial Infarction (IA) Additional Family Medical History / Comment(s): SISTER ALSO HAS MS Brother(s) Family Medical History: Musculoskeletal Disorder, Neurologic Disorder Additional Family Medical History / Comment(s): MS Father Additional Family Medical History / Comment(s): ETOH abuse, back surgery Medications and Allergies Home Medications Medication Instructions Recorded Confirmed Type Folic Acid 1 mg PO DAILY 04/08/14 04/06/19 History Primidone [Mysoline] 50 mg PO BID 04/12/15 04/06/19 History Albuterol Nebulized [Ventolin 2.5 mg INHALATION RT-Q6H PRN 04/13/15 04/06/19 History Nebulized] Thiamine [Vitamin B-1] 100 mg PO DAILY 04/13/15 04/06/19 History ARIPiprazole [Abilify] 10 mg PO DAILY 03/11/17 04/06/19 History Baclofen [Lioresal] 10 mg PO BID 07/09/17 04/06/19 History Cholecalciferol (Vitamin D3) 2,000 unit PO DAILY 09/27/18 04/06/19 History [Vitamin D3] Ferrous Sulfate [Iron (65 MG 325 mg PO BID 09/27/18 04/06/19 History Elemental)] Levothyroxine Sodium [Synthroid] 100 mcg PO DAILY 09/27/18 04/06/19 History Atorvastatin [Lipitor] 40 mg PO DAILY #30 tab 09/28/18 04/06/19 Rx Amiodarone [Cordarone] 200 mg PO DAILY 02/06/19 04/06/19 History Isosorbide Mononitrate ER [Imdur] 30 mg PO DAILY 02/06/19 04/06/19 History Albuterol Sulfate [Proair Hfa] 2 puff INHALATION RT-Q6H PRN 03/16/19 04/06/19 History Cyanocobalamin (Vitamin B-12) 1,000 mcg PO DAILY 03/16/19 04/06/19 History [Vitamin B-12] Fluticasone/Salmeterol 1 puff INHALATION RT-BID 03/16/19 04/06/19 History [Fluticasone-Salmeterol 113-14] Omeprazole 40 mg PO BID 03/16/19 04/06/19 History Loperamide [Imodium] 2 mg PO DAILY PRN 03/22/19 04/06/19 History ALPRAZolam [Xanax] 0.25 mg PO TID #6 tab 04/02/19 04/06/19 Rx Acetaminophen Tab [Tylenol] 325 mg PO Q6HR PRN tab 04/02/19 04/06/19 Rx Gabapentin [Neurontin] 300 mg PO TID #9 cap 04/02/19 04/06/19 Rx Ipratropium-Albuterol Nebulize 3 ml INHALATION RT-Q2H PRN 04/02/19 04/06/19 Rx [Duoneb 0.5 mg-3 mg/3 ml Soln] ampul.neb Ipratropium-Albuterol Nebulize 3 ml INHALATION RT-QID ampul.neb 04/02/19 04/06/19 Rx [Duoneb 0.5 mg-3 mg/3 ml Soln] guaiFENesin [Mucinex] 1,200 mg PO Q12HR tablet.er 04/02/19 04/06/19 Rx oxyCODONE-APAP 5-325MG [Percocet 1 each PO Q8H PRN #6 tab 04/02/19 04/06/19 Rx 5-325 mg] predniSONE 10 mg PO DIRECTED #40 tab 04/02/19 04/06/19 Rx Allergies Allergy/AdvReac Type Severity Reaction Status Date / Time Penicillins Allergy Swelling Verified 03/22/19 17:24 Physical Exam Vitals: Vital Signs Temp Pulse Pulse Resp BP BP Pulse Ox 04/07/19 09:00 78 13 108/71 93 L 04/07/19 08:00 98.4 F 80 11 L 129/73 94 L 04/07/19 07:15 84 04/07/19 07:02 76 04/07/19 07:00 75 12 122/100 94 L 04/07/19 06:30 74 15 94 L 04/07/19 06:00 71 12 122/75 94 L 04/07/19 05:30 70 15 119/69 95 04/07/19 05:00 66 14 97/63 95 04/07/19 04:30 63 13 104/67 95 04/07/19 04:00 97.9 F 64 12 126/78 96 04/07/19 03:41 97.9 F 68 12 121/78 96 04/07/19 03:30 67 10 L 111/76 93 L 04/07/19 03:00 65 13 114/67 97 04/07/19 02:30 64 12 98/63 95 04/07/19 02:00 97.6 F 67 12 89/56 94 L 04/07/19 01:30 98.1 F 75 12 113/66 92 L 04/07/19 01:20 98.1 F 74 10 L 113/66 04/07/19 01:00 70 12 91/63 98 04/07/19 00:58 98.3 F 74 12 91/72 95 04/07/19 00:30 69 18 99 04/07/19 00:27 70 14 99 04/07/19 00:00 98.2 F 71 16 115/75 99 04/06/19 23:52 69 04/06/19 23:42 70 04/06/19 23:30 68 12 109/71 97 04/06/19 23:23 98.3 F 73 13 109/71 97 04/06/19 23:00 72 10 L 99/71 97 04/06/19 22:53 98.2 F 75 12 99/71 96 04/06/19 22:43 98.6 F 76 14 105/65 96 04/06/19 22:30 71 12 105/65 98 04/06/19 22:00 76 8 L 97/51 94 L 04/06/19 21:30 81 15 93 L 04/06/19 21:00 98.7 F 80 11 L 105/67 95 04/06/19 20:49 75 12 99 04/06/19 20:14 98.7 F 80 14 105/67 95 04/06/19 20:06 97.0 F L 79 16 102/70 98 04/06/19 19:03 81 18 103/67 92 L 04/06/19 18:00 81 18 97/63 92 L 04/06/19 17:44 76 04/06/19 17:36 75 18 04/06/19 15:52 98.1 F 88 18 102/63 91 L Intake and Output 04/06/19 04/07/19 04/07/19 22:59 06:59 14:59 Intake Total 290 1480 80 Output Total 0 550 560 Balance 290 930 -480 Intake: IV 40 160 80 0.9 at 20 40 160 80 Intake, IV Titration 250 Amount Vancomycin 1,250 mg In 250 Sodium Chloride 0.9% 250 ml @ 125 mls/hr IVPB ONCE ONE Rx#:[id number] Oral 100 Blood Product 0 1220 Rc As-1 Unit 0 310 [id number] Rc As-1 Unit 310 [id number] Output: Urine 0 550 560 Other: Voiding Method Indwelling Catheter # Bowel Movements 1 Weight 68.039 kg 71.3 kg GENERAL EXAM: Revealed 63-year-old white female, in no distress. HEAD: Normocephalic/atraumatic. HEENT: PERRLA, EOMI, no icterus. Dry mucous membranes. CHEST: No chest wall deformity. Symmetrical expansion. LUNGS: Crackles at the bases no rhonchi and no wheezes. CVS: Normal S1 and S2, no S3 gallop. ABDOMEN: Soft, nontender. No hepatosplenomegaly, normal bowel sounds, no guarding or rigidity. EXTREMITIES: No clubbing, no edema, no cyanosis, 2+ pulses and upper and lower extremities. MUSCULOSKELETAL: Muscle strength and tone normal. SPINE: No scoliosis or deformity SKIN: No rashes, no petechiae. CENTRAL NERVOUS SYSTEM: Alert and oriented 3 focal deficits be PSYCHIATRIC: Normal mood, blunt affect, normal mental status examination. Results - Laboratory Findings CBC and BMP: 04/07/19 05:18 04/07/19 05:18 PT/INR, D-dimer PT 11.5 sec (9.0-12.0) 04/06/19 17:00 INR 1.1 (<1.2) 04/06/19 17:00 Abnormal lab findings: Abnormal Labs 04/06/19 04/06/19 04/06/19 17:00 17:00 17:00 WBC 13.7 H RBC 2.24 L Hgb 7.0 L D Hct 21.2 L RDW Plt Count Neutrophils # 12.5 H Lymphocytes # 0.6 L Sodium 131 L Chloride 97 L Carbon Dioxide 32 H BUN 20 H Creatinine Glucose 114 H POC Glucose (mg/dL) Calcium 7.4 L AST 47 H Total Protein 4.3 L Albumin 2.0 L Urine Protein Urine Blood Urine RBC Urine Bacteria Hyaline Casts Urine Mucus Stool Occult Blood Influenza Type B (PCR) Crossmatch See Detail 04/06/19 04/06/19 04/06/19 17:14 17:33 18:50 WBC RBC Hgb Hct RDW Plt Count Neutrophils # Lymphocytes # Sodium Chloride Carbon Dioxide BUN Creatinine Glucose POC Glucose (mg/dL) Calcium AST Total Protein Albumin Urine Protein Trace H Urine Blood Large H Urine RBC 7 H Urine Bacteria Occasional H Hyaline Casts 4 H Urine Mucus Rare H Stool Occult Blood Positive H Influenza Type B (PCR) Detected H Crossmatch 04/06/19 04/07/19 04/07/19 20:50 05:18 05:18 WBC 11.4 H RBC 3.31 L Hgb 10.0 L D Hct 29.7 L RDW 15.8 H Plt Count 134 L Neutrophils # 9.1 H Lymphocytes # Sodium 131 L Chloride Carbon Dioxide BUN 19 H Creatinine 0.50 L Glucose 58 L POC Glucose (mg/dL) 124 H Calcium 7.3 L AST Total Protein Albumin Urine Protein Urine Blood Urine RBC Urine Bacteria Hyaline Casts Urine Mucus Stool Occult Blood Influenza Type B (PCR) Crossmatch 04/07/19 06:38 WBC RBC Hgb Hct RDW Plt Count Neutrophils # Lymphocytes # Sodium Chloride Carbon Dioxide BUN Creatinine Glucose POC Glucose (mg/dL) 105 H Calcium AST Total Protein Albumin Urine Protein Urine Blood Urine RBC Urine Bacteria Hyaline Casts Urine Mucus Stool Occult Blood Influenza Type B (PCR) Crossmatch - Diagnostic Findings Chest x-ray: image reviewed (As noted in HPI.) Assessment and Plan Assessment: Impression: Acute upper GI bleeding, most likely secondary to recently diagnosed bleeding gastric mass, possibly gastric malignancy, awaiting for final report on the pathology from [facility]. Acute on chronic hypoxic respiratory failure secondary to COPD, and suspect bilateral pneumonia, not fully resolved from the last admission. This was related to influenza B infection. Generalized weakness secondary to above. Known history of coronary artery disease and previous coronary intervention and stenting Known history of gastric mass, awaiting pathology from [facility]. Acute on chronic anemia secondary to GI blood losses Acute on chronic congestive heart failure as, systolic in nature and LV dysfunction and ejection fraction is 40%, previous AICD placement. History of multiple sclerosis History of peripheral neuropathy History of ventricular tachycardia and cardiac arrest History of peripheral vessel occlusive disease History of benign essential hypertension. History of fibromyalgia History of degenerative joint disease History of peripheral neuropathy History of ESBL infection History of anxiety and bipolar disorder History of AICD placement History of ulcerative colitis and irritable bowel syndrome Recommendation: Continue to monitor the patient in the ICU. Transfuse for hemoglobin below 7. Continue Protonix. GI consultation is pending. Continue bronchodilators, continue antibiotics, Resume home meds, Oncology consultation for her gastric mass Avoid antiplatelets and anticoagulations therapy Continue bronchodilators. Continue oxygen. We'll continue to follow closely. Prognosis is definitely poor and guarded, courtney barnard definitely refused transfer back to [facility] for her GI issues. Time with Patient: Greater than 30
--- NOTE | 2019-04-07 11:06 | P.PN ---
Progress Note - Text Progress Note Date: 04/07/19 Pt's chart reviewed. Pt will be seen tomorrow. Recent admission for GI bleed at [facility]. Found to have gastric tumor/ulcer. Discharged to [facility] and now here for GI bleed again, Hgb on presentation 7, improved to 10 with pRBC transfusion. Will need to obtain records from [facility], including possible biopsy results and EGD and imaging studies. Agree with GI consult. Further recommendations once information available and pt seen.
[2019-04-07 12:36] LABS: Anisocytosis Slight; HCT 28.4 % (34.0-46.0); HGB 9.6 gm/dL (11.4-16.0); Hypochromasia Slight; MCH 31.2 pg (25.0-35.0); MCHC 33.7 g/dL (31.0-37.0); MCV 92.7 fL (80.0-100.0); Mean Platelet Volume 7.3; Platelet Count 180 k/uL (150-450); Poikilocytosis Moderate; RBC 3.07 m/uL (3.80-5.40); RDW 16.2 % (11.5-15.5)
[2019-04-07] MEDS: ACETAMINOPHEN TAB 325 MG TAB PO PRN ×2 (14:41→21:33)
--- NOTE | 2019-04-07 16:46 | P.CONS ---
History of Present Illness - Reason for Consult Consult date: 04/07/19 Anemia Requesting physician: Devyn Macias - Chief Complaint Dark stool, GI bleed - History of Present Illness 63-year-old female with a medical history significant for coronary artery disease, CHF, COPD, GERD, hypertension, hyperlipidemia, prior GI bleed, pneumon ia, recent hospitalization for treatment of influenza who presented to the hospital due to concerns over possible GI bleed. The patient was previously hospitalized a few months ago at which time there were concerns over GI bleed and imaging findings of a large gastric mass. She was sent to [facility] for further evaluation. Per EMR patient underwent EGD evaluation with findings of gastric ulcer as well as tissue biopsy of the mass which per her documentation from this hospital was positive for smooth muscle. She has been set up to see the hematology/oncology service on 04/17/2018. However since that time hospitalizations have revealed persistent anemia. The patient does note t hat bowel movements have been dark but states that this has been present since she started iron supplementation. She denies any gross bleeding per rectum. No nausea, vomiting or hematemesis reported. Denies any pain in the abdomen at this time. Review of Systems REVIEW OF SYSTEMS: CONSTITUTIONAL: Denies any fevers, chills, weight change or fatigue. CARDIOVASCULAR: Denies any chest pain, palpitations high or low blood pressures RESPIRATORY: Denies any hemoptysis and reports shortness of breath which she complained of on previous admission is improved. GENITOURINARY: No dysuria or hematuria. MUSCULOSKELETAL: No weakness reported. SKIN: Denies any new rashes or lesions, jaundice or pallor. PSYCHIATRIC: Denies any depression or anxiety. NEUROLOGY: Denies headache, denies any new focal deficits. EARS/NOSE/THROAT: No recent hearing change, congestion, nasal discharge or sore throat. EYES: No pain in eyes, discharge or change in vision. GASTROINTESTINAL: As per HPI. Past Medical History Past Medical History: Coronary Artery Disease (CAD), Chest Pain / Angina, Heart Failure, COPD, Eye Disorder, Fibromyalgia, GERD/Reflux, Hyperlipidemia, Hypertension, Myocardial Infarction ([place]), Musculoskeletal Disorder, Neurologic Disorder, Osteoarthritis (OA), Pneumonia, Respiratory Disorder, Skin Disorder, Thyroid Disorder, Vascular Disorder Additional Past Medical History / Comment(s): 11/2012 [place] with cardiac arrest/vtach, chronic respiratory failure-uses home O2 prn 2-3L/NC, tracheobronchitis, tricuspid regurgitation, multiple sclerosis, neuropathy bilateral legs/feet, chronic back pain, DDD, migraines, bilateral carpal tunnel syndrome, past L/R rib fractures, past L hip fracture with surgery, PUD with ulcer rupture with surgery, peritonitis, pancreatitis, IBS/ ulcerative colitis, chronic anemia, UTIs, urinary incontinence, endometriosis, hypothyroid, R cataract and L eye cataract forming again, PVD, L leg cellulitis, Last Myocardial Infarction Date:: 2012 History of Any Multi-Drug Resistant Organisms: ESBL Year Discovered:: 02/18/2014 MDRO Source:: Blood and Urine E. coli ESBL Past Surgical History: AICD, Appendectomy, Heart Catheterization, Heart Catheterization With Stent, Orthopedic Surgery, Pacemaker Additional Past Surgical History / Comment(s): Cardioversion, Laparotomy for r uptured gastric ulcer, R foot fracture with surgery, L hip fracture with surgery-has plate and screw, EGD, colonoscopies with bening polypectomy. Past Anesthesia/Blood Transfusion Reactions: No Reported Reaction Additional Past Anesthesia/Blood Transfusion Reaction / Comm: Pt has received blood in past without reaction. Date of Last Stent Placement:: 11/2012 Type of Cardiac Device: Permanent Pacemaker, AICD Device Placement Date:: 2012 Past Psychological History: Anxiety, Bipolar, Depression, Panic Disorder Smoking Status: Former smoker Past Alcohol Use History: None Reported Past Drug Use History: None Reported - Past Family History Mother Family Medical History: Musculoskeletal Disorder Additional Family Medical History / Comment(s): MS Sister(s) Family Medical History: Myocardial Infarction ([place]) Additional Family Medical History / Comment(s): SISTER ALSO HAS MS Brother(s) Family Medical History: Musculoskeletal Disorder, Neurologic Disorder Additional Family Medical History / Comment(s): MS Father Additional Family Medical History / Comment(s): ETOH abuse, back surgery Medications and Allergies Home Medications Medication Instructions Recorded Confirmed Type Folic Acid 1 mg PO DAILY 04/08/14 04/06/19 History Primidone [Mysoline] 50 mg PO BID 04/12/15 04/06/19 History Albuterol Nebulized [Ventolin 2.5 mg INHALATION RT-Q6H PRN 04/13/15 04/06/19 History Nebulized] Thiamine [Vitamin B-1] 100 mg PO DAILY 04/13/15 04/06/19 History ARIPiprazole [Abilify] 10 mg PO DAILY 03/11/17 04/06/19 History Baclofen [Lioresal] 10 mg PO BID 07/09/17 04/06/19 History Cholecalciferol (Vitamin D3) 2,000 unit PO DAILY 09/27/18 04/06/19 History [Vitamin D3] Ferrous Sulfate [Iron (65 MG 325 mg PO BID 09/27/18 04/06/19 History Elemental)] Levothyroxine Sodium [Synthroid] 100 mcg PO DAILY 09/27/18 04/06/19 History Atorvastatin [Lipitor] 40 mg PO DAILY #30 tab 09/28/18 04/06/19 Rx Amiodarone [Cordarone] 200 mg PO DAILY 02/06/19 04/06/19 History Isosorbide Mononitrate ER [Imdur] 30 mg PO DAILY 02/06/19 04/06/19 History Albuterol Sulfate [Proair Hfa] 2 puff INHALATION RT-Q6H PRN 03/16/19 04/06/19 History Cyanocobalamin (Vitamin B-12) 1,000 mcg PO DAILY 03/16/19 04/06/19 History [Vitamin B-12] Fluticasone/Salmeterol 1 puff INHALATION RT-BID 03/16/19 04/06/19 History [Fluticasone-Salmeterol 113-14] Omeprazole 40 mg PO BID 03/16/19 04/06/19 History Loperamide [Imodium] 2 mg PO DAILY PRN 03/22/19 04/06/19 History ALPRAZolam [Xanax] 0.25 mg PO TID #6 tab 04/02/19 04/06/19 Rx Acetaminophen Tab [Tylenol] 325 mg PO Q6HR PRN tab 04/02/19 04/06/19 Rx Gabapentin [Neurontin] 300 mg PO TID #9 cap 04/02/19 04/06/19 Rx Ipratropium-Albuterol Nebulize 3 ml INHALATION RT-Q2H PRN 04/02/19 04/06/19 Rx [Duoneb 0.5 mg-3 mg/3 ml Soln] ampul.neb Ipratropium-Albuterol Nebulize 3 ml INHALATION RT-QID ampul.neb 04/02/19 04/06/19 Rx [Duoneb 0.5 mg-3 mg/3 ml Soln] guaiFENesin [Mucinex] 1,200 mg PO Q12HR tablet.er 04/02/19 04/06/19 Rx oxyCODONE-APAP 5-325MG [Percocet 1 each PO Q8H PRN #6 tab 04/02/19 04/06/19 Rx 5-325 mg] predniSONE 10 mg PO DIRECTED #40 tab 04/02/19 04/06/19 Rx Allergies Allergy/AdvReac Type Severity Reaction Status Date / Time Penicillins Allergy Swelling Verified 03/22/19 17:24 Physical Exam Vitals: Vital Signs Temp Pulse Pulse Resp BP BP Pulse Ox 04/07/19 09:00 78 13 108/71 93 L 04/07/19 08:00 98.4 F 80 11 L 129/73 94 L 04/07/19 07:15 84 04/07/19 07:02 76 04/07/19 07:00 75 12 122/100 94 L 04/07/19 06:30 74 15 94 L 04/07/19 06:00 71 12 122/75 94 L 04/07/19 05:30 70 15 119/69 95 04/07/19 05:00 66 14 97/63 95 04/07/19 04:30 63 13 104/67 95 04/07/19 04:00 97.9 F 64 12 126/78 96 04/07/19 03:41 97.9 F 68 12 121/78 96 04/07/19 03:30 67 10 L 111/76 93 L 04/07/19 03:00 65 13 114/67 97 04/07/19 02:30 64 12 98/63 95 04/07/19 02:00 97.6 F 67 12 89/56 94 L 04/07/19 01:30 98.1 F 75 12 113/66 92 L 04/07/19 01:20 98.1 F 74 10 L 113/66 04/07/19 01:00 70 12 91/63 98 04/07/19 00:58 98.3 F 74 12 91/72 95 04/07/19 00:30 69 18 99 04/07/19 00:27 70 14 99 04/07/19 00:00 98.2 F 71 16 115/75 99 04/06/19 23:52 69 04/06/19 23:42 70 04/06/19 23:30 68 12 109/71 97 04/06/19 23:23 98.3 F 73 13 109/71 97 04/06/19 23:00 72 10 L 99/71 97 04/06/19 22:53 98.2 F 75 12 99/71 96 04/06/19 22:43 98.6 F 76 14 105/65 96 04/06/19 22:30 71 12 105/65 98 04/06/19 22:00 76 8 L 97/51 94 L 04/06/19 21:30 81 15 93 L 04/06/19 21:00 98.7 F 80 11 L 105/67 95 04/06/19 20:49 75 12 99 04/06/19 20:14 98.7 F 80 14 105/67 95 04/06/19 20:06 97.0 F L 79 16 102/70 98 04/06/19 19:03 81 18 103/67 92 L 04/06/19 18:00 81 18 97/63 92 L 04/06/19 17:44 76 04/06/19 17:36 75 18 04/06/19 15:52 98.1 F 88 18 102/63 91 L Intake and Output 04/06/19 04/07/19 04/07/19 22:59 06:59 14:59 Intake Total 290 1480 80 Output Total 0 550 560 Balance 290 930 -480 Intake: IV 40 160 80 0.9 at 20 40 160 80 Intake, IV Titration 250 Amount Vancomycin 1,250 mg In 250 Sodium Chloride 0.9% 250 ml @ 125 mls/hr IVPB ONCE ONE Rx#:[id number] Oral 100 Blood Product 0 1220 Rc As-1 Unit 0 310 [id number] Rc As-1 Unit 310 [id number] Output: Urine 0 550 560 Other: Voiding Method Indwelling Catheter # Bowel Movements 1 Weight 68.039 kg 71.3 kg On physical examination, patient appears comfortable in no apparent distress. HEAD: Normocephalic, atraumatic. EYES: No scleral icterus. No conjunctival injection. MOUTH: No lesions, tongue midline. NECK: Trachea midline, no gross abnormalities. CHEST: Decreased air entry in all lung perea. HEART: S1-S2 appreciated. ABDOMEN: Soft, obese. Bowel sounds are positive. No organomegaly. No guarding or rigidity. EXTREMITIES: No pedal edema. SKIN: No rashes, no jaundice. NEUROLOGIC: Alert and oriented x3. Results CBC & Chem 7: 04/07/19 12:22 04/07/19 05:18 Labs: Abnormal Lab Results - Last 24 Hours (Table) 04/06/19 04/06/19 04/06/19 Range/Units 17:00 17:00 17:00 WBC 13.7 H (3.8-10.6) k/uL RBC 2.24 L (3.80-5.40) m/uL Hgb 7.0 L D (11.4-16.0) gm/dL Hct 21.2 L (34.0-46.0) % RDW (11.5-15.5) % Plt Count (150-450) k/uL Neutrophils # 12.5 H (1.3-7.7) k/uL Lymphocytes # 0.6 L (1.0-4.8) k/uL Sodium 131 L (137-145) mmol/L Chloride 97 L (98-107) mmol/L Carbon Dioxide 32 H (22-30) mmol/L BUN 20 H (7-17) mg/dL Creatinine (0.52-1.04) mg/dL Glucose 114 H (74-99) mg/dL POC Glucose (mg/dL) (75-99) mg/dL Calcium 7.4 L (8.4-10.2) mg/dL AST 47 H (14-36) U/L Total Protein 4.3 L (6.3-8.2) g/dL Albumin 2.0 L (3.5-5.0) g/dL Urine Protein (Negative) Urine Blood (Negative) Urine RBC (0-5) /hpf Urine Bacteria (None) /hpf Hyaline Casts (0-2) /lpf Urine Mucus (None) /hpf Stool Occult Blood (Negative) Influenza Type B (PCR) (Not Detectd) Crossmatch See Detail 04/06/19 04/06/19 04/06/19 Range/Units 17:14 17:33 18:50 WBC (3.8-10.6) k/uL RBC (3.80-5.40) m/uL Hgb (11.4-16.0) gm/dL Hct (34.0-46.0) % RDW (11.5-15.5) % Plt Count (150-450) k/uL Neutrophils # (1.3-7.7) k/uL Lymphocytes # (1.0-4.8) k/uL Sodium (137-145) mmol/L Chloride (98-107) mmol/L Carbon Dioxide (22-30) mmol/L BUN (7-17) mg/dL Creatinine (0.52-1.04) mg/dL Glucose (74-99) mg/dL POC Glucose (mg/dL) (75-99) mg/dL Calcium (8.4-10.2) mg/dL AST (14-36) U/L Total Protein (6.3-8.2) g/dL Albumin (3.5-5.0) g/dL Urine Protein Trace H (Negative) Urine Blood Large H (Negative) Urine RBC 7 H (0-5) /hpf Urine Bacteria Occasional H (None) /hpf Hyaline Casts 4 H (0-2) /lpf Urine Mucus Rare H (None) /hpf Stool Occult Blood Positive H (Negative) Influenza Type B (PCR) Detected H (Not Detectd) Crossmatch 04/06/19 04/07/19 04/07/19 Range/Units 20:50 05:18 05:18 WBC 11.4 H (3.8-10.6) k/uL RBC 3.31 L (3.80-5.40) m/uL Hgb 10.0 L D (11.4-16.0) gm/dL Hct 29.7 L (34.0-46.0) % RDW 15.8 H (11.5-15.5) % Plt Count 134 L (150-450) k/uL Neutrophils # 9.1 H (1.3-7.7) k/uL Lymphocytes # (1.0-4.8) k/uL Sodium 131 L (137-145) mmol/L Chloride (98-107) mmol/L Carbon Dioxide (22-30) mmol/L BUN 19 H (7-17) mg/dL Creatinine 0.50 L (0.52-1.04) mg/dL Glucose 58 L (74-99) mg/dL POC Glucose (mg/dL) 124 H (75-99) mg/dL Calcium 7.3 L (8.4-10.2) mg/dL AST (14-36) U/L Total Protein (6.3-8.2) g/dL Albumin (3.5-5.0) g/dL Urine Protein (Negative) Urine Blood (Negative) Urine RBC (0-5) /hpf Urine Bacteria (None) /hpf Hyaline Casts (0-2) /lpf Urine Mucus (None) /hpf Stool Occult Blood (Negative) Influenza Type B (PCR) (Not Detectd) Crossmatch 04/07/19 Range/Units 06:38 WBC (3.8-10.6) k/uL RBC (3.80-5.40) m/uL Hgb (11.4-16.0) gm/dL Hct (34.0-46.0) % RDW (11.5-15.5) % Plt Count (150-450) k/uL Neutrophils # (1.3-7.7) k/uL Lymphocytes # (1.0-4.8) k/uL Sodium (137-145) mmol/L Chloride (98-107) mmol/L Carbon Dioxide (22-30) mmol/L BUN (7-17) mg/dL Creatinine (0.52-1.04) mg/dL Glucose (74-99) mg/dL POC Glucose (mg/dL) 105 H (75-99) mg/dL Calcium (8.4-10.2) mg/dL AST (14-36) U/L Total Protein (6.3-8.2) g/dL Albumin (3.5-5.0) g/dL Urine Protein (Negative) Urine Blood (Negative) Urine RBC (0-5) /hpf Urine Bacteria (None) /hpf Hyaline Casts (0-2) /lpf Urine Mucus (None) /hpf Stool Occult Blood (Negative) Influenza Type B (PCR) (Not Detectd) Crossmatch Chest x-ray: report reviewed Assessment and Plan (1) Iron deficiency anemia Narrative/Plan: 63-year-old female with multiple medical comorbidities including a prior history of peptic ulcer disease in the gastric mass diagnosed at [facility] per EMR with documentation in [facility] records stating that biopsies of mass with positive for smoking muscle. The patient is set up to see oncology service in the outpatient setting. She is also being treated with iron supplementation and reports dark stools since being on that therapy. Stool tested come back positive for occult blood, unclear if this is secondary to previously diagnosed ulcer, bleeding from gastric mass, or falls positive in the setting of iron supplementation. Patient's anemia is likely multifactorial given chronic dise ase as well as known gastric mass however cannot rule out a component of acute blood loss. Hemoglobin on presentation 7 subsequently found to be 10 and 9.6 on repeat blood draw after transfusion. No evidence of active bleeding at this time. This clearly the patient requires definitive therapy for gastric mass cannot be provided at [facility] she should be transferred to tertiary facility for further workup if she is agreeable. Current Visit: Yes Status: Acute Code(s): D50.9 - IRON DEFICIENCY ANEMIA, UNSPECIFIED SNOMED Code(s): 05163275 (2) Stool guaiac positive Current Visit: Yes Status: Acute Code(s): R19.5 - OTHER FECAL ABNORMALITIES SNOMED Code(s): 27402656 (3) Abdominal mass Current Visit: No Status: Acute Code(s): R19.00 - INTRA-ABD AND PELVIC SWEL LING, MASS AND LUMP, UNSP SITE SNOMED Code(s): 002692451 Plan: Supportive care Okay for clear liquid diet Continue twice daily Protonix therapy Continue to monitor hemoglobin and hematocrit and transfuse as needed Avoid NSAID medications Patient has known gastric mass as well as prior ulcer seen on EGD at [facility] and continues to present with concerns of anemia, she requires definitive therapy including a multi-disciplinary approach to her disease with surgical oncology and hematology oncology services, recommendations are for transfer to tertiary facility which have been discussed with the patient No plans for endoscopic evaluation at this time, if patient has acute precipitous fall in hemoglobin we'll reevaluate at that time Other medical management per primary team GI service will continue to follow
[2019-04-07 20:05] LABS: Anisocytosis Slight; HCT 26.8 % (34.0-46.0); HGB 9.5 gm/dL (11.4-16.0); Hyperchromasia Slight; MCH 31.5 pg (25.0-35.0); MCHC 35.6 g/dL (31.0-37.0); MCV 88.5 fL (80.0-100.0); Mean Platelet Volume 9.8; Platelet Count 137 k/uL (150-450); Poikilocytosis Moderate; RBC 3.03 m/uL (3.80-5.40); RDW 16.1 % (11.5-15.5); WBC 12.2 k/uL (3.8-10.6)
--- NOTE | 2019-04-07 20:32 | PN ---
PROGRESS NOTE DATE OF SERVICE: 04/07/2019 This 63-year-old woman was admitted with upper gastrointestinal bleeding, also had 2 units transfusion yesterday. Hemoglobin is 9.6. Gastroenterology following the patient closely. The detailed report from [facility] where the patient has been treated recently, has been awaited at this time. The patient being closely monitored in ICU. The patient also had influenza B positive. Infectious Disease also on consult. The patient has been given a second course of Tamiflu at this time. PAST MEDICAL HISTORY: Reviewed. REVIEW OF SYSTEMS: Cardiovascular: No angina or palpitations. Respiration as mentioned earlier. GI: As mentioned earlier. : No dysuria. CENTRAL NERVOUS SYSTEM: No numbness or weakness. CURRENT MEDICATIONS: Reviewed and include: 1. Tylenol p.r.n. 2. Ventolin q.i.d. 3. DuoNeb q.i.d. p.r.n. 4. Xanax 0.5 t.i.d. 5. Cordarone 200 mg p.o. 6. Abilify. 7. Lioresal 10 mg p.o. b.i.d. 8. Symbicort 160/4.5 two puffs b.i.d. 9. Neurontin. 10.Imdur. 11.Levaquin 750 mg p.o. daily. 12.Narcan. 13.Tamiflu. 14.Protonix. 15.Mysoline. PHYSICAL EXAMINATION: Alert and oriented x3. Pulse is 73. Blood pressure 90/66. Respiration 10. Temperature normal. Pulse ox 97% on 3 L. HEENT: Conjunctivae normal. Oral mucosa moist. NECK is no jugular venous distention. No carotid bruit. No lymph node enlargement. Cardiovascular: S1, S2 muffled. RESPIRATIONS: Breath sounds diminished in the bases. Bilateral scattered rhonchi and crackles. ABDOMEN: Soft, obese. Mild diffuse discomfort in the abdomen. No mass palpable. LEGS: No edema. No swelling Nervous System: No focal deficits. LABS: WBC 16, hemoglobin 9.6 and sodium 131. UA noted. Otherwise, influenza B is positive. Stool OB is positive. ASSESSMENT: 1. Acute blood loss anemia with possibly upper gastrointestinal bleeding with bleeding from gastric ulcer or gastric mass. 2. Increased WBC. 3. Influenza B positive recurrent. 4. Hyponatremia. 5. History of recent hospital admission for acute pneumonia, influenza B. 6. History of chronic obstructive pulmonary disease. 7. History of recent gastrointestinal bleed. 8. Intraabdominal gastric mass. 9. History of coronary artery disease. 10.History of congestive heart failure, ejection fraction unknown. 11.History of chronic obstructive pulmonary disease. 12.Fibromyalgia. 13.Gastroesophageal reflux disease. 14.Hypertension. 15.Hyperlipidemia. 16.Myocardial infarction. 17.History of degenerative joint disease. 18.History of pneumonia. 19.History of gait dysfunction. 20.History of cardiac arrest with ventricular tachycardia. 21.Chronic hypoxic respiratory failure, oxygen 2-3 L nasal cannula. 22.Multiple sclerosis. 23.History of peripheral neuropathy. 24.Carpal tunnel syndrome. 25.Change in mental status, metabolic encephalopathy. 26.History of degenerative joint disease. 27.History of irritable bowel syndrome. 28.Ulcerative colitis. 29.History of peripheral vascular disease. 30.History ESBL. 31.History of AICD. 32.History of coronary artery disease stent. 33.History of permanent pacemaker. 34.History of anxiety, bipolar depression, panic disorder. 35.FULL CODE. RECOMMENDATIONS AND DISCUSSION: Recommend to continue current medications, management and symptomatic treatment. Otherwise, monitor hemoglobin closely. If hemoglobin less than 7, we will transfuse more. Otherwise minimal bleeding was noted from the GI tract at this time with minimal melenic stools and Dr. Quiros is planning to obtain further records from [facility]. Otherwise HEMATOLOGY/ONCOLOGY also seen the patient. The biopsy reports are pending also. Otherwise, continue the Tamiflu. Guarded prognosis because of multiple complex medical issues. Further recommendations to follow. The chest x-ray was done today which was reviewed by me personally, which showed some features atelectasis and increased bronchovascular markings also. Once again, the prognosis guarded. Further recommendations to follow. MMODL / IJN: [id number] /
[2019-04-07] MEDS: LEVOFLOXACIN 750MG-D5W PMX 750 MG in DEXTROSE/WATER 1 150ML.BAG IVPB SCH (20:55)
[2019-04-07] MEDS ORDERED: IPRATROPIUM-ALBUTEROL 3 ML NEB INHALATION PRN (20:55)
[2019-04-07] MEDS ORDERED: OSELTAMIVIR 60 MG/10 ML ORAL SYRINGE PO SCH (21:00)
--- NOTE | 2019-04-07 23:08 | CONS ---
CONSULTATION DATE OF SERVICE: 04/07/2019. REASON FOR CONSULTATION: Influenza B. HISTORY OF PRESENT ILLNESS: The patient is a 63 -year-old female, who was recently admitted to this hospital. The patient was treated for acute influenza with possible secondary pneumonia. The patient apparently during the hospital stay also had gastric mass with a question of bleeding from the same for which the patient has been evaluated by Dr. Solis and subsequently did have some workup at [facility], however, details are not available. The patient has been brought back to the [facility] ER last night with apparently GI bleed. The patient had been not feeling well and was having dark tarry stools. The patient denies having any abdominal pain at this point. No nausea, no vomiting. The patient denies having any headache, minimal URI symptoms. No difficulty swallowing. No chest pain. Some shortness of breath. Very minimal cough which has been dry in nature and no urinary symptoms. The patient's cough has been chronic without any recent worsening and not bringing up any sputum. With these symptoms, the patient has been evaluated by the ER physician. On arrival to the ER, the patient has been afebrile. The patient did have a mildly elevated white count of 13.7 and hemoglobin was low at 7.0. Creatinine was 0.50. Urine did show some blood, but no significant pyuria. The patient's influenza PCR came back positive again and stool for occult blood was positive. The patient chest x-ray has been showing small bilateral effusion. The patient basilar atelectasis or infiltrate, cardiomegaly, COPD, stable. The patient had been started on Tamiflu 75 mg daily in addition to Levaquin. Infectious Disease has been consulted for further recommendation regarding antibiotic therapy. REVIEW OF SYSTEMS: Positive points have been mentioned in HPI. Rest of the systems are negative. PAST MEDICAL HISTORY: Coronary artery disease, chest pain, angina, heart failure, COPD, fibromyalgia, gastroesophageal reflux disease, hyperlipidemia, hypertension, ND, pneumonia. PAST SURGICAL HISTORY: AICD placement, appendectomy, heart catheterization and pacemaker placement. SOCIAL HISTORY: Remote history of smoking. No drinking, drug use. FAMILY HISTORY: Mother with history of MS. Sister with a history of ND. Father history of ETOH abuse. ALLERGIES: TO PENICILLIN. No history of anaphylaxis. MEDICATIONS: The patient is currently on Tylenol, Ventolin, DuoNeb, Xanax, amiodarone, Abilify, baclofen, Lasix, Neurontin, Imdur, Levaquin, levothyroxine, Narcan, Tamiflu 75 daily, Percocet and Protonix. PHYSICAL EXAMINATION: Blood pressure is 108/72 with a pulse of 85, temperature 98.4. She is 97% on 2 L nasal cannula. General description is a middle-aged female lying in bed in no distress. No tachypnea or accessory muscles of respiration use. HEENT: Shows slight pallor. No scleral icterus. Oral mucosal membranes are dry. No pharyngeal erythema or thrush. Neck: Trachea central. No thyromegaly. Lungs: Unlabored breathing. Clear to auscultation anteriorly. No wheeze or crackles. Heart S1, S2. Regular rate and rhythm. Abdomen soft. No tenderness. No guarding or rigidity. Extremities are no edema of the feet. Skin examination: No rash or mass palpable. Neurological: She is awake, alert, oriented times three. Mood and affect normal. LABS: Hemoglobin 9.6, of 16,000, BUN of 19, creatinine 0.50. Electrolytes have been normal. Urine is negative. Stool for occult blood positive. Influenza B serology positive. Chest x-ray report as mentioned earlier. DIAGNOSTIC IMPRESSION AND PLAN: 1. Patient admitted to the hospital with symptoms of generalized weakness in this patient who did have dark black tarry stools, likely a gastrointestinal bleed in this patient who did have a history of a gastric mass in this patient with no fever or any worsening respiratory symptoms low for underlying pneumonia. The patient influenza B is positive. She was recently treated and the PCR may stay positive long even after treatment for the same. 2. The patient with PENICILLIN ALLERGY limiting the number of antibiotics safe to use and is on amiodarone. some of the antibiotic use. PLAN: 1. May consider retreatment of the influenza, however dose should be 75 mg p.o. twice a daily. 2. We will obtain sputum for Gram stain and culture. 3. We will check a procalcitonin level. If elevated, may consider adding antibiotics. 4. We will follow up on clinical condition and further adjust medication if needed. Thank you for this consultation. We will follow the patient along with you. MMODL / IJN: [id number] /
[2019-04-08] MEDS: oxyCODONE-APAP 5-325MG 1 EACH TAB PO PRN ×3 (01:53→22:06)
[2019-04-08 04:40] LABS: Basophils % (A) 0 %; Eosinophils # (A) 0.1 k/uL (0-0.7); Eosinophils % (A) 1 %; HGB 8.8 gm/dL (11.4-16.0); Hypochromasia Slight; Lymphocytes # (A) 1.1 k/uL (1.0-4.8); Lymphocytes % (A) 11 %; MCH 30.1 pg (25.0-35.0); MCHC 32.4 g/dL (31.0-37.0); Mean Platelet Volume 7.3; Monocytes # (A) 0.6 k/uL (0-1.0); Monocytes % (A) 6 %; Neutrophils # (A) 8.2 k/uL (1.3-7.7); Neutrophils % (A) 81 %; Platelet Count 165 k/uL (150-450); Poikilocytosis Slight; RDW 15.7 % (11.5-15.5); WBC 10.1 k/uL (3.8-10.6)
[2019-04-08 05:01] LABS: African American GFR (CKD) >90 (>60 ml/min/1.73 sqM); Anion Gap 3 mmol/L; Blood Urea Nitrogen 18 mg/dL (7-17); Calcium 7.1 mg/dL (8.4-10.2); Carbon Dioxide 31 mmol/L (22-30); Chloride 97 mmol/L (98-107); Glucose 54 mg/dL (74-99); Non-African American GFR(CKD) >90 (>60 ml/min/1.73 sqM); Potassium 3.8 mmol/L (3.5-5.1); Sodium 131 mmol/L (137-145)
[2019-04-08] MEDS ORDERED: Potassium Replacement Protocol 1 EACH MISC MISCELLANE PRN (05:19)
[2019-04-08] MEDS ORDERED: POTASSIUM CHLORIDE ER 20 MEQ TAB.ER PO SCH (06:00)
[2019-04-08] MEDS: LEVOTHYROXINE 100 MCG TAB PO SCH (06:01)
[2019-04-08] MEDS: GABAPENTIN 300 MG CAP PO SCH ×3 (08:46→22:06)
[2019-04-08] MEDS: PRIMIDONE 50 MG TAB PO SCH ×2 (08:46→22:06)
[2019-04-08] MEDS: ALPRAZolam 0.25 MG TAB PO SCH ×3 (08:46→22:08)
[2019-04-08] MEDS: FUROSEMIDE 10 MG/ML 2 ML VIAL IV SCH ×2 (08:46→22:07)
[2019-04-08] MEDS: ARIPiprazole 10 MG TAB PO SCH (08:46)
[2019-04-08] MEDS: AMIODARONE 200 MG TAB PO SCH (08:46)
[2019-04-08] MEDS: BACLOFEN 10 MG TAB PO SCH ×2 (08:46→22:06)
[2019-04-08] MEDS: PANTOPRAZOLE 40 MG/10 ML VIAL IVP SCH ×2 (08:47→22:01)
[2019-04-08] MEDS: ACETAMINOPHEN TAB 325 MG TAB PO PRN (08:47)
[2019-04-08] MEDS: IPRATROPIUM-ALBUTEROL 3 ML NEB INHALATION SCH ×4 (09:10→21:07)
[2019-04-08] MEDS: SYMBICORT 160-4.5 MCG INHALER INHALATION SCH ×2 (09:10→21:07)
[2019-04-08] MEDS: OSELTAMIVIR 75 MG CAP PO SCH ×2 (10:01→22:06)
--- NOTE | 2019-04-08 10:04 | P.PN ---
Subjective Progress Note Date: 04/08/19 Principal diagnosis: Acute GI bleeding This is a 63-year-old female with history of multiple medical problems including severe COPD, chronic hypoxic respiratory failure secondary to COPD, O2 dependent. History of intra-abdominal gastric mass which was recently evaluated at [facility], supposedly the patient underwent EGD and biopsy, however no information could be obtained in the chart. Patient has no clue as what she has and she refused apparently to be transferred to [facility] yesterday from the ER. Patient presented from [facility] as a transfer because she was not feeling well and having dark tarry stools. She was recently in the hospital and discharged on the of this month to [facility]. She had a diagnosis of influenza and pneumonia. She also had active GI bleeding at the time, and she received 2 units of packed RBCs on the last admission. Patient underwent EGD at [facility], and she was diagnosed with a gastric ulcer and intra-abdominal mass. She is not aware of the treatment plan for her gastric mass, however she was referred to see Dr. Egan. Patient has chronic left upper and left lower abdominal pain, no nausea no vomiting no hematemesis. Upon her initial evaluation in the ER, her hemoglobin was 7, and was just recently over 9. Hence the patient received a total of 2 units of packed RBCs since admission last night, and hemoglobin is 10.0 this morning. Looking at the last note from Dr. Herrera, patient apparently had an ulcerated gastric mass, but no final tissue diagnosis is available. Patient had recent episode of exacerbation of COPD and she was seen by Dr. Driver she also had bilateral pneumonia with influenza. Chest x-ray on this admission showed small bilateral pleural effusions, patchy basilar atelectasis or infiltrates, hence the patient will be given antibiotics empirically, and she was also placed on diuretics. On 04/08/2019 patient seen in follow-up in intensive care unit, no active bleeding overnight, vital signs are stable, patient is awake and alert, answering questions, she is currently at 3 L of oxygen, with a pulse ox of 92- 94%, hemodynamically stable, no tachycardia, patient has received a total of 2 units of pack red blood cells this admission, for admission hemoglobin of 7.0, today's hemoglobin is 8.0. 0.9 normal saline is infusing a rate of 20 ML per h our, denies any difficulty breathing, no complaints of chest pain, today's labs have been reviewed, white blood cell count is 10.1, later count is 165, sodium is 131, potassium 3.8, CO2 31, BUN is 18 creatinine 0.61. Patient was seen by GI service and medical oncology, still awaiting reports from [facility]. Recommendation from GI service is to transfer to the tertiary facility, [facility] as no definitive therapy for gastric mass camber provided that [facility]. Objective - Vital Signs Vital signs: Vital Signs Temp 97.8 F 04/08/19 08:00 Pulse 73 04/08/19 09:20 Resp 12 04/08/19 09:00 BP 90/59 04/08/19 09:00 Pulse Ox 92 L 04/08/19 09:00 Intake & Output 04/07/19 04/08/19 04/08/19 18:59 06:59 18:59 Intake Total 340 340 406 Output Total 1440 1385 150 Balance -1100 -1045 256 Weight 71.3 kg 76.8 kg Intake: IV 240 240 60 0.9 at 20 240 240 60 Oral 100 100 346 Output: Urine 1440 1385 150 Other: Voiding Method Indwelling Catheter Indwelling Catheter # Bowel Movements 1 - Exam GENERAL EXAM: Alert, pleasant, weak, pale, 63-year-old white female, 3 L of oxygen with a pulse ox of 92%, comfortable in no apparent distress. HEAD: Normocephalic/atraumatic. EYES: Normal reaction of pupils, equal size. Conjunctiva pink, sclera white. NOSE: Clear with pink turbinates. THROAT: No erythema or exudates. NECK: No masses, no JVD, no thyroid enlargement, no adenopathy. CHEST: No chest wall deformity. Symmetrical expansion. LUNGS: Equal air entry with no crackles, wheeze, rhonchi or dullness. CVS: Regular rate and rhythm, normal S1 and S2, no gallops, no murmurs, no rubs ABDOMEN: Soft, nontender. No hepatosplenomegaly, normal bowel sounds, no guarding or rigidity. EXTREMITIES: No clubbing, mild pitting edema in upper and lower extremities, no cyanosis, 2+ pulses and upper and lower extremities. MUSCULOSKELETAL: Muscle strength and tone normal. SPINE: No scoliosis or deformity SKIN: No rashes CENTRAL NERVOUS SYSTEM: Alert and oriented -3. No focal deficits, tone is normal in all 4 extremities. PSYCHIATRIC: Alert and oriented -3. Appropriate affect. Intact judgment and insight. - Labs CBC & Chem 7: 04/08/19 04:10 04/08/19 04:10 Labs: Abnormal Lab Results - Last 24 Hours (Table) 04/07/19 04/07/19 04/08/19 Range/Units 12:22 18:23 04:10 WBC 16.0 H 12.2 H (3.8-10.6) k/uL RBC 3.07 L 3.03 L 2.90 L (3.80-5.40) m/uL Hgb 9.6 L 9.5 L 8.8 L (11.4-16.0) gm/dL Hct 28.4 L 26.8 L 27.0 L (34.0-46.0) % RDW 16.2 H 16.1 H 15.7 H (11.5-15.5) % Plt Count 137 L (150-450) k/uL Neutrophils # 8.2 H (1.3-7.7) k/uL Sodium (137-145) mmol/L Chloride (98-107) mmol/L Carbon Dioxide (22-30) mmol/L BUN (7-17) mg/dL Glucose (74-99) mg/dL Calcium (8.4-10.2) mg/dL 04/08/19 Range/Units 04:10 WBC (3.8-10.6) k/uL RBC (3.80-5.40) m/uL Hgb (11.4-16.0) gm/dL Hct (34.0-46.0) % RDW (11.5-15.5) % Plt Count (150-450) k/uL Neutrophils # (1.3-7.7) k/uL Sodium 131 L (137-145) mmol/L Chloride 97 L (98-107) mmol/L Carbon Dioxide 31 H (22-30) mmol/L BUN 18 H (7-17) mg/dL Glucose 54 L (74-99) mg/dL Calcium 7.1 L (8.4-10.2) mg/dL Microbiology - Last 24 Hours (Table) 04/06/19 19:55 Blood Culture - Preliminary Blood No Growth after 24 hours Assessment and Plan Plan: Assessment: #1. Acute upper GI bleeding, most likely secondary to recent diagnosis bleeding gastric mass, possible gastric malignancy, awaiting reports from [facility] #2. Acute on chronic hypoxic rest or a failure secondary to COPD and suspected bilateral pneumonia not fully resolved from last admission. This was related to influenza B infection #3. Generalized weakness secondary to the above #4. Known history of coronary artery disease and previous coronary intervention and stenting #5. Known history of gastric mass, awaiting pathology report from [facility] #6. Acute on chronic anemia secondary to GI blood losses #7. Acute on chronic congestive heart failure, was systolic dysfunction and EF of 40% with previous AICD placement #8. History of multiple sclerosis #9. History of peripheral neuropathy #10. History of ventricular tachycardia and cardiac arrest #11. History of benign essential hypertension #12. History of peripheral vessel occlusive disease #13. History of fibromyalgia #14. History of DJD #15. History of peripheral neuropathy #16. History of ESBL infection #17. History of anxiety and bipolar disorder #18. History of ulcerative colitis and irritable bowel syndrome Plan: Continue PPI therapy, continue close hemodynamic monitoring, patient has not had bleeding overnight, hemodynamically she is stable, denies any difficulty breathing, continue nebulized bronchodilators continue antibiotics, continue Tamiflu. Have not received pathology reports from [facility], GI service and oncology service consultations were noted, there is no definitive therapy that can be offered for the history of gastric mass at this hospital, recommendation is to transfer the patient to tertiary care facility, we spoke to the patient about it and she wants to discuss it with her sister. She agrees we will arrange transfer to [facility]. I performed a history & physical examination of the patient and discussed their management with my nurse practitioner, Carmen Lambert. I reviewed the nurse practitioner's note and agree with the documented findings and plan of care. Lung sounds are positive for clear breath sounds. The findings and the impression was discussed with the patient. I attest to the documentation by the nurse practitioner. Time with Patient: Less than 30
[2019-04-08] MEDS: ISOSORBIDE MONONITRATE ER 30 MG TAB.ER.24H PO SCH (12:13)
[2019-04-08 14:24] LABS: Glucose,Whole Blood 81 mg/dL (75-99)
--- NOTE | 2019-04-08 19:21 | P.CONS ---
History of Present Illness - Reason for Consult Consult date: 04/08/19 Gastric mass, anemia - History of Present Illness The patient is a 63-year-old white female with multiple medical problems and complex medical history especially over the past 2-3 months. The patient was admitted on 01/28/19, with persistent fatigue, shortness of breath and anemia with hemoglobin in the 7 range. She had a CT of the abdomen and pelvis done at that time which revealed a large mass that appeared to be arising from the greater curvature of the stomach and involving the adjacent duodenum. The patient was transferred to [facility] where she underwent additional workup with an EGD and EUS. Records from [facility] were reviewed. EGD had revealed evidence of a nonbleeding ulcer with biopsy positive for chronic gastritis. On EGD there appeared to be pressure affect due to extrinsic compression from the mass. The patient then had an EUS which appeared to show the mass to be arising from within the gastric wall. 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 However the final diagnosis revealed a spindle cells to be consistent with normal smooth muscle cells. The patient, since then, has had multiple admissions for respiratory issues, as well as recurrent anemia. She was admitted earlier this month for pneumonia and influenza B. She was also noted to have recurrent anemia with hemoglobin in the 6-7 range and received a blood transfusion. She was discharged on 04/03/90 but readmitted with weakness, shortness of breath, and possible GI bleed, from [facility], where she had been transferred after her last admission. It is not clear the patient was having actual bleed as she stated that her stools have been black since she started oral iron supplementation. Hemoglobin however had dropped again to 7 due to which the patient received 2 units. Consultfor further evaluation and recommendations. The patient had been referred to medical oncology but had not been able to schedule appointments due to her multiple hospitalizations. She had an appointment to see Dr. Egan 04/17/19 She denied any prior history of malignancy, or blood related problems. Review of Systems Constitutional: Reports fatigue, Reports poor appetite, Reports weakness, Reports weight loss Eyes: denies blurred vision, denies pain Ears: deny: decreased hearing, ear discharge, earache, tinnitus Ears, nose, mouth and throat: Denies headache, Denies sore throat Cardiovascular: Reports shortness of breath Respiratory: Reports cough, Reports dyspnea Gastrointestinal: Reports melena Genitourinary: Denies dysuria, Denies hematuria Menstruation: Reports postmenopausal Musculoskeletal: Reports muscle weakness Integumentary: Denies pruritus, Denies rash Neurological: Reports weakness Psychiatric: Denies anxiety, Denies depression Endocrine: Reports fatigue, Reports weight change Hematologic/Lymphatic: Reports as per HPI Past Medical History Past Medical History: Coronary Artery Disease (CAD), Chest Pain / Angina, Heart Failure, COPD, Eye Disorder, Fibromyalgia, GERD/Reflux, Hyperlipidemia, Hypertension, Myocardial Infarction (ME), Musculoskeletal Disorder, Neurologic Disorder, Osteoarthritis (OA), Pneumonia, Respiratory Disorder, Skin Disorder, Thyroid Disorder, Vascular Disorder Additional Past Medical History / Comment(s): 11/2012 ME with cardiac arrest/vtach, chronic respiratory failure-uses home O2 prn 2-3L/NC, tracheobronchitis, tricuspid regurgitation, multiple sclerosis, neuropathy ranjeet ateral legs/feet, chronic back pain, DDD, migraines, bilateral carpal tunnel syndrome, past L/R rib fractures, past L hip fracture with surgery, PUD with ulcer rupture with surgery, peritonitis, pancreatitis, IBS/ ulcerative colitis, chronic anemia, UTIs, urinary incontinence, endometriosis, hypothyroid, R cataract and L eye cataract forming again, PVD, L leg cellulitis, Last Myocardial Infarction Date:: 2012 History of Any Multi-Drug Resistant Organisms: ESBL Year Discovered:: 02/18/2014 MDRO Source:: Blood and Urine E. coli ESBL Past Surgical History: AICD, Appendectomy, Heart Catheterization, Heart Catheterization With Stent, Orthopedic Surgery, Pacemaker Additional Past Surgical History / Comment(s): Cardioversion, Laparotomy for ruptured gastric ulcer, R foot fracture with surgery, L hip fracture with surgery-has plate and screw, EGD, colonoscopies with bening polypectomy. Past Anesthesia/Blood Transfusion Reactions: No Reported Reaction Additional Past Anesthesia/Blood Transfusion Reaction / Comm: Pt has received blood in past without reaction. Date of Last Stent Placement:: 11/2012 Type of Cardiac Device: Permanent Pacemaker, AICD Device Placement Date:: 2012 Past Psychological History: Anxiety, Bipolar, Depression, Panic Disorder Smoking Status: Former smoker Past Alcohol Use History: None Reported Past Drug Use History: None Reported - Past Family History Mother Family Medical History: Musculoskeletal Disorder Additional Family Medical History / Comment(s): MS Sister(s) Family Medical History: Myocardial Infarction (ME) Additional Family Medical History / Comment(s): SISTER ALSO HAS MS Brother(s) Family Medical History: Musculoskeletal Disorder, Neurologic Disorder Additional Family Medical History / Comment(s): MS Father Additional Family Medical History / Comment(s): ETOH abuse, back surgery Medications and Allergies Home Medications Medication Instructions Recorded Confirmed Type Folic Acid 1 mg PO DAILY 04/08/14 04/06/19 History Primidone [Mysoline] 50 mg PO BID 04/12/15 04/06/19 History Albuterol Nebulized [Ventolin 2.5 mg INHALATION RT-Q6H PRN 04/13/15 04/06/19 History Nebulized] Thiamine [Vitamin B-1] 100 mg PO DAILY 04/13/15 04/06/19 History ARIPiprazole [Abilify] 10 mg PO DAILY 03/11/17 04/06/19 History Baclofen [Lioresal] 10 mg PO BID 07/09/17 04/06/19 History Cholecalciferol (Vitamin D3) 2,000 unit PO DAILY 09/27/18 04/06/19 History [Vitamin D3] Ferrous Sulfate [Iron (65 MG 325 mg PO BID 09/27/18 04/06/19 History Elemental)] Levothyroxine Sodium [Synthroid] 100 mcg PO DAILY 09/27/18 04/06/19 History Atorvastatin [Lipitor] 40 mg PO DAILY #30 tab 09/28/18 04/06/19 Rx Amiodarone [Cordarone] 200 mg PO DAILY 02/06/19 04/06/19 History Isosorbide Mononitrate ER [Imdur] 30 mg PO DAILY 02/06/19 04/06/19 History Albuterol Sulfate [Proair Hfa] 2 puff INHALATION RT-Q6H PRN 03/16/19 04/06/19 History Cyanocobalamin (Vitamin B-12) 1,000 mcg PO DAILY 03/16/19 04/06/19 History [Vitamin B-12] Fluticasone/Salmeterol 1 puff INHALATION RT-BID 03/16/19 04/06/19 History [Fluticasone-Salmeterol 113-14] Omeprazole 40 mg PO BID 03/16/19 04/06/19 History Loperamide [Imodium] 2 mg PO DAILY PRN 03/22/19 04/06/19 History ALPRAZolam [Xanax] 0.25 mg PO TID #6 tab 04/02/19 04/06/19 Rx Acetaminophen Tab [Tylenol] 325 mg PO Q6HR PRN tab 04/02/19 04/06/19 Rx Gabapentin [Neurontin] 300 mg PO TID #9 cap 04/02/19 04/06/19 Rx Ipratropium-Albuterol Nebulize 3 ml INHALATION RT-Q2H PRN 04/02/19 04/06/19 Rx [Duoneb 0.5 mg-3 mg/3 ml Soln] ampul.neb Ipratropium-Albuterol Nebulize 3 ml INHALATION RT-QID ampul.neb 04/02/19 04/06/19 Rx [Duoneb 0.5 mg-3 mg/3 ml Soln] guaiFENesin [Mucinex] 1,200 mg PO Q12HR tablet.er 04/02/19 04/06/19 Rx oxyCODONE-APAP 5-325MG [Percocet 1 each PO Q8H PRN #6 tab 04/02/19 04/06/19 Rx 5-325 mg] predniSONE 10 mg PO DIRECTED #40 tab 04/02/19 04/06/19 Rx Allergies Allergy/AdvReac Type Severity Reaction Status Date / Time Penicillins Allergy Swelling Verified 03/22/19 17:24 Physical Exam Vitals: Vital Signs Temp Pulse Pulse Resp BP BP Pulse Ox 04/08/19 16:46 80 04/08/19 16:28 79 04/08/19 15:00 98.3 F 80 14 91/58 96 04/08/19 12:41 89 04/08/19 12:29 88 04/08/19 12:00 85 25 H 106/80 93 L 04/08/19 11:00 77 12 84/60 92 L 04/08/19 10:00 74 12 105/66 94 L 04/08/19 09:20 73 04/08/19 09:10 72 04/08/19 09:00 75 12 90/59 92 L 04/08/19 08:00 97.8 F 78 13 106/62 94 L 04/08/19 07:00 73 12 86/54 94 L 04/08/19 06:00 72 11 L 90/60 95 04/08/19 05:00 66 14 88/62 95 04/08/19 04:00 65 12 81/55 95 04/08/19 03:00 65 14 93/63 95 04/08/19 02:00 73 15 81/54 93 L 04/08/19 01:00 73 13 90/65 95 04/08/19 00:00 65 10 L 83/59 98 04/07/19 23:54 15 04/07/19 23:00 73 15 98/58 98 04/07/19 22:00 81 15 108/68 94 L 04/07/19 21:00 78 16 94/68 95 04/07/19 20:00 98.1 F 82 14 101/71 94 L 04/07/19 19:15 76 Intake and Output 04/08/19 04/08/19 04/08/19 06:59 14:59 22:59 Intake Total 160 506 80 Output Total 920 1275 325 Balance -760 -769 -245 Intake: IV 160 160 80 0.9 at 20 160 160 80 Oral 346 Output: Urine 920 1275 325 Other: Voiding Method Indwelling Catheter Indwelling Catheter Indwelling Catheter Weight 76.8 kg - Constitutional General appearance: no acute distress - EENT Eyes: EOMI, PERRLA ENT: hearing grossly normal, normal oropharynx - Neck Neck: no lymphadenopathy - Respiratory Respiratory: bilateral: CTA - Cardiovascular Rhythm: regular Heart sounds: normal: S1, S2 - Gastrointestinal General gastrointestinal: normal bowel sounds, soft - Integumentary Integumentary: normal - Neurologic Neurologic: CNII-XII intact - Musculoskeletal Musculoskeletal: generalized weakness, strength equal bilaterally - Psychiatric Psychiatric: A&O x's 3, appropriate affect Results CBC & Chem 7: 04/08/19 04:10 04/08/19 04:10 Labs: Abnormal Lab Results - Last 24 Hours (Table) 04/07/19 04/08/19 04/08/19 Range/Units 18:23 04:10 04:10 WBC 12.2 H (3.8-10.6) k/uL RBC 3.03 L 2.90 L (3.80-5.40) m/uL Hgb 9.5 L 8.8 L (11.4-16.0) gm/dL Hct 26.8 L 27.0 L (34.0-46.0) % RDW 16.1 H 15.7 H (11.5-15.5) % Plt Count 137 L (150-450) k/uL Neutrophils # 8.2 H (1.3-7.7) k/uL Sodium 131 L (137-145) mmol/L Chloride 97 L (98-107) mmol/L Carbon Dioxide 31 H (22-30) mmol/L BUN 18 H (7-17) mg/dL Glucose 54 L (74-99) mg/dL Calcium 7.1 L (8.4-10.2) mg/dL Microbiology - Last 24 Hours (Table) 04/06/19 19:55 Blood Culture - Preliminary Blood No Growth after 24 hours Comments: Records from [facility], including physician notes, her procedure notes, and pathology reports reviewed and summarized in HPI Chest x-ray: report reviewed CT scan - abdomen: report reviewed CT scan - pelvis: report reviewed Assessment and Plan (1) Abdominal mass Narrative/Plan: The patient's computed tomography scan about 2 months ago had shown a large mass arising from the greater curvature of the stomach with what appeared to be invasion of the adjacent bowel. The radiologic appearance was concerning for malignancy. The patient subsequently had EGD and EUS with results as noted in the HPI. She thus appears to have a mass arising from within the gastric wall, not affecting the stomach mucosa, and growing outwards. - EUS guided biopsy was initially read as a possible spindle cell tumor but final pathology indicated normal stool muscle cells. While it is possible that she may have a benign tumor such as a leiomyoma, the radiologic appearance is more concerning for malignancy raising the possibility that the pathology is not diagnostic. - Given the timing labs from her workup, at this time it reasonable to reimage her with a CT of the chest abdomen and pelvis. In addition to try to obtain a more definite diagnosis, interventional radiology will be consulted for CT- guided core biopsy. Further recommendations will be made accordingly. Current Visit: No Status: Acute Code(s): R19.00 - INTRA-ABD AND PELVIC SWE LLING, MASS AND LUMP, UNSP SITE SNOMED Code(s): 477386902 (2) Anemia Narrative/Plan: The patient has a known gastric ulcer, discovered on EGD at [facility], that appears to be unrelated to the stomach wall mass. Biopsy from the also had shown evidence of gastritis. The patient also had workup for pernicious anemia, with labs for antibodies negative. - The patient's iron studies are nonspecific, as the levels have probably been affected by her blood transfusions. Given the fairly rapid drop in hemoglobin, it is possible that she may be having recurrent bleeding from the stomach ulcer. GI has been consulted. Would recommend continued monitoring, and repeat EGD to the patient continues to drop her hemoglobin. I will repeat iron studies, though as noted above is may not be very revealing, and also rule out other causes of acute drops in hemoglobin such as hemolysis. In the meantime continue to monitor and transfuse to keep hemoglobin greater than 7 Current Visit: Yes Status: Acute Code(s): D64.9 - ANEMIA, UNSPECIFIED SNOMED Code(s): 681144460 Plan: Defer to the admitting service and other consultants for management of her other medical problems
--- NOTE | 2019-04-08 19:35 | PN ---
PROGRESS NOTE DATE OF SERVICE: 04/08/2019 REASON FOR FOLLOWUP: Influenza B. INTERVAL HISTORY: The patient is currently afebrile. The patient has been breathing comfortably. The patient denies having any chest pain or shortness of breath. She did have some cough. No nausea, no vomiting. No abdominal pain and no further bowel movement. PHYSICAL EXAMINATION: Blood pressure 106/80 with a pulse of 85, temperature of 98. She is 93% on 3 L nasal cannula. General description is a middle-aged female lying in bed in no distress. RESPIRATORY SYSTEM: Unlabored breathing. Clear to auscultation anteriorly. HEART: S1, S2. Regular rate and rhythm. ABDOMEN: Soft. No tenderness. LABS: Hemoglobin is 8.8, white count 10.0 with a BUN of 18, creatinine 0.61. DIAGNOSTIC IMPRESSION AND PLAN: Patient admitted to hospital with black tarry stools in this patient who did have some respiratory symptoms with influenza B positive. Patient at this time to continue with Tamiflu 75 twice a day to finish a 5-dayt course of therapy and monitor clinical course closely. MMODL / IJN: [id number] /
[2019-04-08] MEDS: IOPAMIDOL CONTRAST (ORAL USE) VIAL PO PRN ×2 (19:58→20:35)
--- NOTE | 2019-04-08 21:33 | P.PN ---
Subjective Progress Note Date: 04/08/19 Principal diagnosis: Anemia Patient seen lying in bed no abdominal pain reported. Denies any signs or symptoms of GI bleeding. Objective - Vital Signs Vital signs: Vital Signs Temp 98.5 F 04/08/19 20:00 Pulse 74 04/08/19 21:15 Resp 16 04/08/19 20:00 BP 82/54 04/08/19 20:00 Pulse Ox 96 04/08/19 20:00 Intake & Output 04/08/19 04/08/19 04/09/19 06:59 18:59 06:59 Intake Total 340 586 Output Total 1385 1600 200 Balance -1045 -1014 -200 Weight 76.8 kg Intake: IV 240 240 0.9 at 20 240 240 Oral 100 346 Output: Urine 1385 1600 200 Other: Voiding Method Indwelling Catheter Indwelling Catheter - Exam On physical examination, patient appears comfortable in no apparent distress. HEAD: Normocephalic, atraumatic. EYES: No scleral icterus. No conjunctival injection. MOUTH: No lesions, tongue midline. NECK: Trachea midline, no gross abnormalities. HEART: S1-S2 appreciated. ABDOMEN: Soft, obese. Bowel sounds are positive. No organomegaly. No guarding or rigidity. EXTREMITIES: No pedal edema. SKIN: No rashes, no jaundice. NEUROLOGIC: Alert and oriented x3. - Labs CBC & Chem 7: 04/08/19 04:10 04/08/19 18:32 Labs: Abnormal Lab Results - Last 24 Hours (Table) 04/08/19 04/08/19 Range/Units 04:10 04:10 RBC 2.90 L (3.80-5.40) m/uL Hgb 8.8 L (11.4-16.0) gm/dL Hct 27.0 L (34.0-46.0) % RDW 15.7 H (11.5-15.5) % Neutrophils # 8.2 H (1.3-7.7) k/uL Sodium 131 L (137-145) mmol/L Chloride 97 L (98-107) mmol/L Carbon Dioxide 31 H (22-30) mmol/L BUN 18 H (7-17) mg/dL Glucose 54 L (74-99) mg/dL Calcium 7.1 L (8.4-10.2) mg/dL Microbiology - Last 24 Hours (Table) 04/06/19 19:55 Blood Culture - Preliminary Blood No Growth after 24 hours Assessment and Plan (1) Iron deficiency anemia Narrative/Plan: 63-year-old female with multiple medical comorbidities including a prior history of peptic ulcer disease diagnosed on EGD [facility] and EUS showing external compression of the gastric mucosa with core biopsies consistent with smooth evaluated by hematology/oncology service today and concern given radiologic features of his that the mass is malignant and recommendations were for further evaluation with repeat imaging and IR consultation for core biopsy. Patient's anemia is likely multifactorial given chronic disease as well as known gastric mass however cannot rule out a component of acute blood loss. Hemoglobin on presentation 7 subsequently patient was transfused and hemoglobin has been relatively stable with no reported signs or symptoms of GI bleeding. Current Visit: Yes Status: Acute Code(s): D50.9 - IRON DEFICIENCY ANEMIA, UNSPECIFIED SNOMED Code(s): 54303397 (2) Stool guaiac positive Current Visit: Yes Status: Acute Code(s): R19.5 - OTHER FECAL ABNORMALITIES SNOMED Code(s): 32485689 (3) Abdominal mass Current Visit: No Status: Acute Code(s): R19.00 - INTRA-ABD AND PELVIC SWELLING, MASS AND LUMP, UNSP SITE SNOMED Code(s): 518103225 Plan: Supportive care Okay for clear liquid diet Continue twice daily Protonix therapy Continue to monitor hemoglobin and hematocrit and transfuse as needed Avoid NSAID medications Appreciate the hematology/oncology recommendations, currently recommending repeat imaging and core biopsy by interventional radiology service No plans for endoscopic evaluation at this time, if patient has further fall in hemoglobin we'll reevaluate at that time with consideration for repeat endoscopy Other medical management per primary team GI service will continue to follow
--- NOTE | 2019-04-08 22:24 | CT ---
EXAMINATION TYPE: CT ChestAbdPelvis w con DATE OF EXAM: 04/08/2019 COMPARISON: 02/07/2019 HISTORY: abd mass CT DLP: 1369 mGycm Automated exposure control for dose reduction was used. CONTRAST: Performed with IV Contrast, patient injected with 100 mL of Isovue 300. There are mild bilateral pleural effusions. There is pulmonary emphysema. There is some patchy infilt rate and atelectasis right lower lobe. There is minimal atelectasis left lower lobe. Heart size is fa irly normal. There is atherosclerotic vascular calcification. Thoracic aorta measures 3.6 cm. There i s no aneurysm or dissection. There are no hilar masses. There is no mediastinal adenopathy. Liver shows no focal defect. There is abdominal ascites fluid. There is extensive subcutaneous edema around the entire abdomen. The bile ducts are not dilated. Gallbladder is large and measures 12 x 4 c m. Spleen is intact. There is a 5 cm cystic mass at the posterior aspect of the body of the stomach. There is mild thickening of the posterior wall of the stomach. There are small cystic changes in the body of the pancreas. These are probably small pseudocysts. There is increased density in the retroperitoneum at the origin of the celiac artery and superior mes enteric artery that could be adenopathy or fluid. There is no adrenal mass. There is 2 cm cortical cyst lower pole right kidney. There is no hydronephr osis. There is small calcifications in the kidneys which are mostly vascular. There is no hydronephro sis. Ureters are not dilated. Abdominal aorta is atheromatous. There is Patterson catheter in the urinary bladder. There is compression fractures of L3 and L2 up to 60%. There is T7 anterior wedging 30%. Sternum is i ntact. The bony pelvis appears intact. There is no evidence of a bowel obstruction. No free air. IMPRESSION: Cystic mass at the posterior aspect of the stomach could BE a pseudocyst. There is evidence of some c hronic pancreatitis with multiple small pseudocysts in the body of the pancreas. There is essentially complete clearing of the very large complex mass on the posterior aspect of the stomach compared to old CT scan. There is moderate abdominal ascites unchanged. Extensive subcutaneous edema around the abdomen could relate to anasarca and is essentially new molly red to old exam. There is some pneumonia and atelectasis and pleural fluid at the lung bases increased compared to old exam.
[2019-04-08] MEDS: LEVOFLOXACIN 750MG-D5W PMX 750 MG in DEXTROSE/WATER 1 150ML.BAG IVPB SCH (22:27)
--- NOTE | 2019-04-08 23:08 | PN ---
PROGRESS NOTE DATE OF SERVICE: 04/08/2019 This 63-year-old woman who was admitted with upper GI bleed had a previous gastric mass lesion and gastric ulceration which was worked up in [facility]. The workup was not completed. The possibility of a spindle cell tumor was initially considered but subsequently reported as normal smooth muscle cells. The possibility of a benign tumor is also being considered at this time. Dr. Dominique is following the patient closely. Repeat CT scan was done; results are pending at this time. Past medical history reviewed. REVIEW OF SYSTEMS: CARDIOVASCULAR SYSTEM: No angina, palpitations. RESPIRATORY SYSTEM: As mentioned earlier. GI: As mentioned earlier. : No dysuria or retention. NERVOUS SYSTEM: No numbness, weakness. CURRENT MEDICATIONS: Reviewed. They include: 1. Tylenol 325 mg q.6 p.r.n. 2. DuoNeb q.i.d. and p.r.n. 3. Xanax 0.25 t.i.d. 4. Cordarone 200 mg p.o. daily. 5. Abilify 10 mg p.o. daily. 6. Lioresal 10 mg b.i.d. 7. Symbicort 160/4.5 two puffs b.i.d. 8. Neurontin. 9. Lasix. 10.Imdur. 11.Levaquin. 12.Levothyroxine. 13.Narcan. 14.Tamiflu. 15.Percocet. 16.Protonix. 17.Mysoline. PHYSICAL EXAMINATION: Patient is alert, oriented x3. Pulse is 73. Blood pressure 98/54, respirations 16, temperature 98.4, pulse ox 96% on 3 L. HEENT: Conjunctivae normal. Oral mucosa moist. NECK: No jugular venous distention. No carotid bruit. No lymph node enlargement. CARDIOVASCULAR SYSTEM: S1, S2 muffled. RESPIRATORY SYSTEM: Breath sounds diminished at the bases. A few scattered rhonchi and crackles. ABDOMEN: Soft, non-tender. LEGS: No edema. No swelling. NERVOUS SYSTEM: No focal deficit. LABS: WBC 10.2, hemoglobin is 8.2, sodium 131. ASSESSMENT: 1. Acute blood loss anemia with possible upper gastrointestinal bleeding with bleeding from gastric ulcer or gastric mass lesion. 2. Increased white count. 3. Influenza B positive, recurrent. 4. Hyponatremia. 5. History of recent hospital admission for acute pneumonia and influenza B. 6. History of chronic obstructive pulmonary disease. 7. History of recent gastrointestinal bleed. 8. Intraabdominal gastric mass. 9. History of coronary artery disease. 10.History of congestive heart failure; ejection fraction unknown. 11.History of chronic obstructive pulmonary disease. 12.Fibromyalgia. 13.Gastroesophageal reflux disease. 14.Hypertension. 15.Hyperlipidemia. 16.History of myocardial infarction. 17.History of degenerative joint disease. 18.History of pneumonia. 19.History of gait dysfunction. 20.History of cardiac arrest with ventricular tachycardia. 21.History of chronic hypoxic respiratory failure, oxygen 2 to 3 L nasal cannula. 22.Multiple sclerosis. 23.History of peripheral neuropathy. 24.Carpal tunnel syndrome. 25.Change in mental status, metabolic encephalopathy. 26.History of degenerative joint disease. 27.History of irritable bowel syndrome. 28.History of ulcerative colitis. 29.History of peripheral vascular disease. 30.History of extended-spectrum beta-lactamase. 31.History of automated implantable cardioverter defibrillator. 32.Coronary artery disease, stent. 33.History of permanent pacemaker. 34.History of anxiety, bipolar depression, panic disorder. 35.FULL CODE. RECOMMENDATIONS AND DISCUSSION: In this 63-year-old woman who presented with multiple complex medical issues, at this time I recommend to continue the current medications, continue with symptomatic treatment. Otherwise, monitor hemoglobin closely. I would recommend STAT CBC and BMP. Transfuse if hemoglobin is less than 7. Otherwise, input from Dr. Dominique appreciated. Dr. Quiros also recommended the patient to be transferred to a tertiary care center. We will await the CT scan report. Prognosis extremely guarded because of multiple complex medical issues. Continue the Tamiflu for the influenza. Isolation. Monitor closely in the ICU. Guarded prognosis because of multiple complex medical issues. Further recommendations to follow. MMODL / IJN: [id number] /
[2019-04-08 23:10] LABS: African American GFR (CKD) >90 (>60 ml/min/1.73 sqM); Anion Gap 2 mmol/L; Blood Urea Nitrogen 15 mg/dL (7-17); Calcium 7.4 mg/dL (8.4-10.2); Carbon Dioxide 32 mmol/L (22-30); Chloride 93 mmol/L (98-107); Glucose 79 mg/dL (74-99); Non-African American GFR(CKD) >90 (>60 ml/min/1.73 sqM); Potassium 3.9 mmol/L (3.5-5.1); Sodium 127 mmol/L (137-145)
[2019-04-08 23:33] LABS: Basophils % (A) 0 %; Eosinophils # (A) 0.1 k/uL (0-0.7); Eosinophils % (A) 0 %; HCT 30.2 % (34.0-46.0); Lymphocytes # (A) 0.9 k/uL (1.0-4.8); Lymphocytes % (A) 7 %; MCH 30.3 pg (25.0-35.0); MCHC 33.2 g/dL (31.0-37.0); MCV 91.1 fL (80.0-100.0); Mean Platelet Volume 8.3; Monocytes # (A) 0.7 k/uL (0-1.0); Monocytes % (A) 5 %; Neutrophils # (A) 11.8 k/uL (1.3-7.7); Neutrophils % (A) 87 %; Platelet Count 161 k/uL (150-450); Poikilocytosis Slight; RBC 3.31 m/uL (3.80-5.40); RDW 15.4 % (11.5-15.5); WBC 13.5 k/uL (3.8-10.6)
[2019-04-09] MEDS: ACETAMINOPHEN TAB 325 MG TAB PO PRN ×2 (04:14→20:59)
[2019-04-09 05:37] LABS: Basophils % (A) 0 %; Eosinophils # (A) 0.1 k/uL (0-0.7); Eosinophils % (A) 1 %; Lymphocytes # (A) 1.1 k/uL (1.0-4.8); Lymphocytes % (A) 11 %; MCH 29.9 pg (25.0-35.0); MCHC 32.4 g/dL (31.0-37.0); MCV 92.2 fL (80.0-100.0); Mean Platelet Volume 7.4; Monocytes # (A) 0.5 k/uL (0-1.0); Monocytes % (A) 5 %; Neutrophils # (A) 7.9 k/uL (1.3-7.7); Neutrophils % (A) 82 %; Platelet Count 165 k/uL (150-450); Poikilocytosis Slight; RBC 2.71 m/uL (3.80-5.40); RDW 15.2 % (11.5-15.5); WBC 9.6 k/uL (3.8-10.6)
[2019-04-09 05:50] LABS: African American GFR (CKD) >90 (>60 ml/min/1.73 sqM); Anion Gap 4 mmol/L; Blood Urea Nitrogen 13 mg/dL (7-17); Calcium 7.1 mg/dL (8.4-10.2); Carbon Dioxide 32 mmol/L (22-30); Chloride 93 mmol/L (98-107); Glucose 70 mg/dL (74-99); Non-African American GFR(CKD) >90 (>60 ml/min/1.73 sqM); Potassium 3.4 mmol/L (3.5-5.1); Sodium 129 mmol/L (137-145)
[2019-04-09 06:01] LABS: HGB 8.1 gm/dL (11.4-16.0)
[2019-04-09] MEDS: oxyCODONE-APAP 5-325MG 1 EACH TAB PO PRN ×3 (06:28→23:35)
[2019-04-09] MEDS: LEVOTHYROXINE 100 MCG TAB PO SCH (06:28)
[2019-04-09] MEDS: IPRATROPIUM-ALBUTEROL 3 ML NEB INHALATION SCH ×4 (07:28→19:23)
[2019-04-09] MEDS: SYMBICORT 160-4.5 MCG INHALER INHALATION SCH ×2 (07:28→19:25)
--- NOTE | 2019-04-09 08:44 | P.PN ---
Subjective Progress Note Date: 04/09/19 Principal diagnosis: Acute GI bleeding This is a 63-year-old female with history of multiple medical problems including severe COPD, chronic hypoxic respiratory failure secondary to COPD, O2 dependent. History of intra-abdominal gastric mass which was recently evaluated at [facility], supposedly the patient underwent EGD and biopsy, however no information could be obtained in the chart. Patient has no clue as what she has and she refused apparently to be transferred to [facility] yesterday from the ER. Patient presented from [facility] as a transfer because she was not feeling well and having dark tarry stools. She was recently in the hospital and discharged on the of this month to [facility]. She had a diagnosis of influenza and pneumonia. She also had active GI bleeding at the time, and she received 2 units of packed RBCs on the last admission. Patient underwent EGD at [facility], and she was diagnosed with a gastric ulcer and intra-abdominal mass. She is not aware of the treatment plan for her gastric mass, however she was referred to see Dr. Egan. Patient has chronic left upper and left lower abdominal pain, no nausea no vomiting no hematemesis. Upon her initial evaluation in the ER, her hemoglobin was 7, and was just recently over 9. Hence the patient received a total of 2 units of packed RBCs since admission last night, and hemoglobin is 10.0 this morning. Looking at the last note from Dr. Herrera, patient apparently had an ulcerated gastric mass, but no final tissue diagnosis is available. Patient had recent episode of exacerbation of COPD and she was seen by Dr. Driver she also had bilateral pneumonia with influenza. Chest x-ray on this admission showed small bilateral pleural effusions, patchy basilar atelectasis or infiltrates, hence the patient will be given antibiotics empirically, and she was also placed on diuretics. On 04/08/2019 patient seen in follow-up in intensive care unit, no active bleeding overnight, vital signs are stable, patient is awake and alert, answering questions, she is currently at 3 L of oxygen, with a pulse ox of 92- 94%, hemodynamically stable, no tachycardia, patient has received a total of 2 units of pack red blood cells this admission, for admission hemoglobin of 7.0, today's hemoglobin is 8.0. 0.9 normal saline is infusing a rate of 20 ML per h our, denies any difficulty breathing, no complaints of chest pain, today's labs have been reviewed, white blood cell count is 10.1, later count is 165, sodium is 131, potassium 3.8, CO2 31, BUN is 18 creatinine 0.61. Patient was seen by GI service and medical oncology, still awaiting reports from [facility]. Recommendation from GI service is to transfer to the tertiary facility, [facility] as no definitive therapy for gastric mass camber provided that [facility]. On 04/09/2019 patient seen in follow-up in the intensive care unit, she is awake and alert, seems to be slightly more upbeat today, denies any acute distress, denies abdominal pain, there has been no bleeding overnight, today's hemoglobin is 8.1. Occasional cough, slight congestion, unable to bring up any phlegm, no fever or chills, she remains on supplemental oxygen, currently on 3 L per pulse ox of 96%, lung sounds reveal a few scattered rhonchi. Blood culture has shown no growth, patient was seen by medical oncology, and CT chest, abdomen and pelvis was completed, again showing cystic mass in the posterior aspect of the stomach that could be a pseudocyst, some evidence of chronic pancreatitis, with multiple small pseudocyst in the body of the pancreas, and there was essentially complete clearing of the very large complex mass on the posterior aspect of the stomach compared to old computed tomography scan. Moderate abdominal ascites is unchanged, extensive subcutaneous edema around the abdomen could related to anasarca. Pneumonia and atelectasis and pleural fluid at the lung bases. Objective - Vital Signs Vital signs: Vital Signs Temp 98.3 F 04/08/19 23:00 Pulse 78 04/09/19 07:46 Resp 16 04/09/19 00:00 BP 85/55 04/08/19 23:00 Pulse Ox 96 04/08/19 20:00 Intake & Output 04/08/19 04/09/19 04/09/19 18:59 06:59 18:59 Intake Total 586 1000 Output Total 1600 1350 Balance -1014 -350 Intake: IV 240 0.9 at 20 240 Oral 346 1000 Output: Urine 1600 1350 Other: Voiding Method Indwelling Catheter Indwelling Catheter - Exam GENERAL EXAM: Alert, pleasant, weak, pale, 63-year-old white female, 3 L of o xygen with a pulse ox of 96%, comfortable in no apparent distress. HEAD: Normocephalic/atraumatic. EYES: Normal reaction of pupils, equal size. Conjunctiva pink, sclera white. NOSE: Clear with pink turbinates. THROAT: No erythema or exudates. NECK: No masses, no JVD, no thyroid enlargement, no adenopathy. CHEST: No chest wall deformity. Symmetrical expansion. LUNGS: Equal air entry with some diffuse rhonchi CVS: Regular rate and rhythm, normal S1 and S2, no gallops, no murmurs, no rubs ABDOMEN: Soft, nontender. No hepatosplenomegaly, normal bowel sounds, no guarding or rigidity. EXTREMITIES: No clubbing, mild pitting edema in upper and lower extremities, no cyanosis, 2+ pulses and upper and lower extremities. MUSCULOSKELETAL: Muscle strength and tone normal. SPINE: No scoliosis or deformity SKIN: No rashes CENTRAL NERVOUS SYSTEM: Alert and oriented -3. No focal deficits, tone is no rmal in all 4 extremities. PSYCHIATRIC: Alert and oriented -3. Appropriate affect. Intact judgment and insight. - Labs CBC & Chem 7: 04/09/19 05:01 04/09/19 05:01 Labs: Abnormal Lab Results - Last 24 Hours (Table) 04/08/19 04/08/19 04/09/19 Range/Units 22:45 22:45 05:01 WBC 13.5 H (3.8-10.6) k/uL RBC 3.31 L 2.71 L (3.80-5.40) m/uL Hgb 10.0 L 8.1 L D (11.4-16.0) gm/dL Hct 30.2 L 25.0 L (34.0-46.0) % Neutrophils # 11.8 H 7.9 H (1.3-7.7) k/uL Lymphocytes # 0.9 L (1.0-4.8) k/uL Sodium 127 L (137-145) mmol/L Potassium (3.5-5.1) mmol/L Chloride 93 L (98-107) mmol/L Carbon Dioxide 32 H (22-30) mmol/L Glucose (74-99) mg/dL Calcium 7.4 L (8.4-10.2) mg/dL 04/09/19 Range/Units 05:01 WBC (3.8-10.6) k/uL RBC (3.80-5.40) m/uL Hgb (11.4-16.0) gm/dL Hct (34.0-46.0) % Neutrophils # (1.3-7.7) k/uL Lymphocytes # (1.0-4.8) k/uL Sodium 129 L (137-145) mmol/L Potassium 3.4 L (3.5-5.1) mmol/L Chloride 93 L (98-107) mmol/L Carbon Dioxide 32 H (22-30) mmol/L Glucose 70 L (74-99) mg/dL Calcium 7.1 L (8.4-10.2) mg/dL Microbiology - Last 24 Hours (Table) 04/06/19 19:55 Blood Culture - Preliminary Blood No Growth after 48 hours Assessment and Plan Plan: Assessment: #1. Acute upper GI bleeding, most likely secondary to recent diagnosis bleeding gastric mass, possible gastric malignancy, awaiting reports from [facility]. CT chest/abdomen and pelvis was completed on 04/08/2019 showing a cystic mass at the posterior aspect of the stomach, possible pseudocyst, complete clearing of the very large complex mass on the posterior aspect of the stomach compared old computed tomography scan, chronic pancreatitis with multiple small pseudocysts in the body of the pancreas. #2. Acute on chronic hypoxic rest or a failure secondary to COPD and suspected bilateral pneumonia not fully resolved from last admission. This was related to influenza B infection #3. Generalized weakness secondary to the above #4. Known history of coronary artery disease and previous coronary intervention and stenting #5. Known history of gastric mass, awaiting pathology report from [facility] #6. Acute on chronic anemia secondary to GI blood losses #7. Acute on chronic congestive heart failure, was systolic dysfunction and EF of 40% with previous AICD placement #8. History of multiple sclerosis #9. History of peripheral neuropathy #10. History of ventricular tachycardia and cardiac arrest #11. History of benign essential hypertension #12. History of peripheral vessel occlusive disease #13. History of fibromyalgia #14. History of DJD #15. History of peripheral neuropathy #16. History of ESBL infection #17. History of anxiety and bipolar disorder #18. History of ulcerative colitis and irritable bowel syndrome Plan: No bleeding overnight, hemodynamically she remains stable, CT of the chest, abdomen and pelvis have been noted, interventional radiology was consulted for possible drainage of the cystic mass that could be a pseudocyst in the posterior aspect of the stomach. However after discussing with the patient, and in view of her recurrent GI bleeding, patient now agrees to be transferred to [facility]. Consult discharge planning to start arranging transfer to tertiary care center. Continue Levaquin and Tamiflu, continue nebulized bronchodilators, IV Lasix, patient is maintaining negative fluid balance. No fever or chills, no worsening dyspnea, still some rhonchi and congestion, but no fever or chills. We'll continue to follow I performed a history & physical examination of the patient and discussed their management with my nurse practitioner, Carmen Lambert. I reviewed the nurse practitioner's note and agree with the documented findings and plan of care. Lung sounds are positive for clear breath sounds. The findings and the impression was discussed with the patient. I attest to the documentation by the nurse practitioner. Time with Patient: Less than 30
[2019-04-09] MEDS ORDERED: Potassium Replacement Protocol 1 EACH MISC MISCELLANE PRN (09:27)
[2019-04-09] MEDS: PANTOPRAZOLE 40 MG/10 ML VIAL IVP SCH ×2 (09:39→20:59)
[2019-04-09] MEDS: FUROSEMIDE 10 MG/ML 2 ML VIAL IV SCH (09:48)
[2019-04-09] MEDS: ALPRAZolam 0.25 MG TAB PO SCH ×3 (09:49→23:35)
[2019-04-09] MEDS: ARIPiprazole 10 MG TAB PO SCH (09:49)
[2019-04-09] MEDS: AMIODARONE 200 MG TAB PO SCH (09:49)
[2019-04-09] MEDS: BACLOFEN 10 MG TAB PO SCH ×2 (09:49→20:58)
[2019-04-09] MEDS: POTASSIUM CHLORIDE ER 20 MEQ TAB.ER PO SCH ×2 (09:49→11:53)
[2019-04-09] MEDS: FLUTICASONE 50MCG/SPRAY NASAL 16GM EA NOSTRIL SCH (09:50)
[2019-04-09] MEDS: PRIMIDONE 50 MG TAB PO SCH ×2 (09:50→20:59)
[2019-04-09] MEDS: GABAPENTIN 300 MG CAP PO SCH ×3 (09:50→23:35)
[2019-04-09] MEDS: OSELTAMIVIR 75 MG CAP PO SCH ×2 (09:50→20:58)
[2019-04-09 10:37] VITALS: BMI 30.9
[2019-04-09] MEDS: ISOSORBIDE MONONITRATE ER 30 MG TAB.ER.24H PO SCH (11:43)
--- NOTE | 2019-04-09 17:29 | PN ---
PROGRESS NOTE DATE OF SERVICE: 04/09/2019 REASON FOR FOLLOWUP: Acute influenza pneumonia. INTERVAL HISTORY: The patient is currently afebrile. The patient is breathing more comfortably. The patient denies having any chest pain. Occasional cough. No nausea, vomiting, abdominal pain or further diarrhea or bleeding per rectum. PHYSICAL EXAMINATION: Blood pressure is 87/54 with a pulse of 60, temperature 97.8. General description is a middle-aged female lying in bed in no distress. RESPIRATORY SYSTEM: Unlabored breathing with decreased breath sounds at the base. No wheeze. HEART: S1, S2. Regular rate and rhythm. ABDOMEN: Soft. LABS: Hemoglobin 8.1, white count 9.6, BUN of 13, creatinine 0.60. DIAGNOSTIC IMPRESSION AND PLAN: Patient admitted to hospital with gastrointestinal in this patient who did have some respiratory symptoms. The patient's influenza B serology came back positive and CT of chest, abdomen and pelvis was suspicious for pneumonia as well. The patient is currently covered with Tamiflu and Levaquin; to continue. Try to obtain a sputum sample. White count has normalized. The patient had good bowel movement. Monitor her clinical course closely. Continue with supportive care. MMODL / IJN: [id number] /
[2019-04-09] MEDS: LEVOFLOXACIN 750MG-D5W PMX 750 MG in DEXTROSE/WATER 1 150ML.BAG IVPB SCH (20:58)
[2019-04-10 04:45] LABS: Basophils % (A) 0 %; Eosinophils # (A) 0.1 k/uL (0-0.7); Eosinophils % (A) 1 %; HCT 23.5 % (34.0-46.0); HGB 7.8 gm/dL (11.4-16.0); Hypochromasia Slight; Lymphocytes % (A) 11 %; MCHC 33.2 g/dL (31.0-37.0); MCV 93.1 fL (80.0-100.0); Mean Platelet Volume 7.7; Monocytes # (A) 0.5 k/uL (0-1.0); Monocytes % (A) 6 %; Neutrophils # (A) 7.6 k/uL (1.3-7.7); Neutrophils % (A) 82 %; Platelet Count 160 k/uL (150-450); Poikilocytosis Slight; RBC 2.52 m/uL (3.80-5.40); RDW 15.3 % (11.5-15.5); WBC 9.3 k/uL (3.8-10.6)
[2019-04-10 05:03] LABS: African American GFR (CKD) >90 (>60 ml/min/1.73 sqM); Anion Gap 0 mmol/L; Blood Urea Nitrogen 11 mg/dL (7-17); Calcium 7.2 mg/dL (8.4-10.2); Carbon Dioxide 36 mmol/L (22-30); Chloride 94 mmol/L (98-107); Glucose 67 mg/dL (74-99); Non-African American GFR(CKD) >90 (>60 ml/min/1.73 sqM); Potassium 3.8 mmol/L (3.5-5.1); Sodium 130 mmol/L (137-145)
[2019-04-10] MEDS: LEVOTHYROXINE 100 MCG TAB PO SCH (06:53)
[2019-04-10 07:33] LABS: Glucose,Whole Blood 97 mg/dL (75-99)
[2019-04-10] MEDS: IPRATROPIUM-ALBUTEROL 3 ML NEB INHALATION SCH (07:42)
[2019-04-10] MEDS: SYMBICORT 160-4.5 MCG INHALER INHALATION SCH (07:42)
[2019-04-10 08:32] VITALS: BP 89/56; PULSE 77; RESP 16; TEMP 97.5
[2019-04-10] MEDS: oxyCODONE-APAP 5-325MG 1 EACH TAB PO PRN (08:34)
[2019-04-10] MEDS: PANTOPRAZOLE 40 MG/10 ML VIAL IVP SCH (08:35)
[2019-04-10] MEDS: ISOSORBIDE MONONITRATE ER 30 MG TAB.ER.24H PO SCH (08:36)
[2019-04-10] MEDS: ARIPiprazole 10 MG TAB PO SCH (08:36)
[2019-04-10] MEDS: BACLOFEN 10 MG TAB PO SCH (08:36)
[2019-04-10] MEDS: AMIODARONE 200 MG TAB PO SCH (08:36)
[2019-04-10] MEDS: PRIMIDONE 50 MG TAB PO SCH (08:36)
[2019-04-10] MEDS: OSELTAMIVIR 75 MG CAP PO SCH (08:37)
[2019-04-10] MEDS: FLUTICASONE 50MCG/SPRAY NASAL 16GM EA NOSTRIL SCH (08:37)
[2019-04-10] MEDS: GABAPENTIN 300 MG CAP PO SCH (08:37)
[2019-04-10] MEDS: ALPRAZolam 0.25 MG TAB PO SCH (08:37)
--- NOTE | 2019-04-10 09:43 | DS ---
DISCHARGE SUMMARY DATE OF SERVICE: 04/09/2019 FINAL DIAGNOSES: 1. Acute blood loss anemia with possible upper gastrointestinal bleeding with bleeding from gastric ulcer or gastric mass lesion. 2. Increased WBC. 3. Influenza B positive recurrent. 4. Hyponatremia. 5. History of recent hospital admission with acute pneumonia influenza B. 6. History of chronic obstructive pulmonary disease. 7. History of recent gastrointestinal bleed. 8. Intraabdominal gastric mass of undetermined etiology. 9. History of coronary artery disease. 10.History of congestive heart failure ejection fraction unknown. 11.History of chronic obstructive pulmonary disease. 12.Fibromyalgia. 13.Gastroesophageal reflux disease. 14.Hypertension. 15.Hyperlipidemia. 16.Myocardial infarction. 17.History of degenerative joint disease. 18.History of pneumonia. 19.History of gait dysfunction. 20.History of cardiac arrest with ventricular tachycardia. 21.History of chronic hypoxic respiratory failure. Oxygen 2-3 L nasal cannula. 22.History of multiple sclerosis. 23.History of peripheral neuropathy. 24.History of carpal tunnel syndrome. 25.Change in mental status, metabolic encephalopathy. 26.History of degenerative joint disease. 27.History of irritable bowel syndrome. 28.History of ulcerative colitis. 29.History of peripheral vascular disease. 30.History of ESBL. 31.History of AICD. 32.History of coronary artery disease stent. 33.History of permanent pacemaker. 34.History of anxiety, bipolar depression, panic disorder. 35.FULL CODE. DISCHARGE DISPOSITION: Patient being discharged in stable condition with guarded prognosis. Total time taken: 35 minutes. Patient being transferred to [facility] for further evaluation and treatment. HISTORY OF PRESENT ILLNESS: This 63-year-old male with a past medical history of multiple medical problems was admitted with acute gastrointestinal bleed and blood-loss anemia. Hemoglobin is 7. 2 units transfused. The patient did not have any obvious hemorrhage, but hemoglobin fluctuated between 8 and the patient was evaluated by Dr. Dominique and Dr. Quiros. The patient recently had a workup at [facility]. Exact etiology is unknown at this time but apparently the biopsies initially showed spindle cell fibers and subsequently showed normal smooth muscle fibers. The exact etiology of the gastric neoplasm is unknown at this time. The CT scan done here did show a complex mass in the pancreas as well as attached to the stomach also great curvature. The case discussed with multiple consultants who would like the patient transferred to [facility] for further evaluation and treatment. I discussed the case with [facility] and the patient will be discharged in stable condition. Guarded prognosis. The patient is stable but overall prognosis remains guarded. Further recommendations to follow. MMODL / IJN: [id number] /
--- NOTE | 2019-04-10 10:03 | P.PN ---
Subjective Progress Note Date: 04/10/19 Principal diagnosis: Acute GI bleed This is a 63-year-old female with history of multiple medical problems including severe COPD, chronic hypoxic respiratory failure secondary to COPD, O2 dependent. History of intra-abdominal gastric mass which was recently evaluated at [facility], supposedly the patient underwent EGD and biopsy, however no information could be obtained in the chart. Patient has no clue as what she has and she refused apparently to be transferred to [facility] yesterday from the ER. Patient presented from [facility] as a transfer be cause she was not feeling well and having dark tarry stools. She was recently in the hospital and discharged on the of this month to [facility]. She had a diagnosis of influenza and pneumonia. She also had active GI bleeding at the time, and she received 2 units of packed RBCs on the last admission. Patient underwent EGD at [facility], and she was diagnosed with a gastric ulcer and intra-abdominal mass. She is not aware of the treatment plan for her gastric mass, however she was referred to see Dr. Egan. Patient has chronic left upper and left lower abdominal pain, no nausea no vomiting no hematemesis. Upon her initial evaluation in the ER, her hemoglobin was 7, and was just recently over 9. Hence the patient received a total of 2 units of packed RBCs since admission last night, and hemoglobin is 10.0 this morning. Looking at the last note from Dr. Herrera, patient apparently had an ulcerated gastric mass, but no final tissue diagnosis is available. Patient had recent episode of exacerbation of COPD and she was seen by Dr. Driver she also had bilateral pneumonia with influenza. Chest x-ray on this admission showed small bilateral pleural effusions, patchy basilar atelectasis or infiltrates, hence the patient will be given antibiotics empirically, and she was also placed on diuretics. On 04/08/2019 patient seen in follow-up in intensive care unit, no active bleeding overnight, vital signs are stable, patient is awake and alert, answering questions, she is currently at 3 L of oxygen, with a pulse ox of 92- 94%, hemodynamically stable, no tachycardia, patient has received a total of 2 units of pack red blood cells this admission, for admission hemoglobin of 7.0, today's hemoglobin is 8.0. 0.9 normal saline is infusing a rate of 20 ML per hour, denies any difficulty breathing, no complaints of chest pain, today's labs have been reviewed, white blood cell count is 10.1, later count is 165, sodium is 131, potassium 3.8, CO2 31, BUN is 18 creatinine 0.61. Patient was seen by GI service and medical oncology, still awaiting reports from [facility]. Recommendation from GI service is to transfer to the tertiary facility, [facility] as no definitive therapy for gastric mass camber provided that [facility]. On 04/09/2019 patient seen in follow-up in the intensive care unit, she is awake and alert, seems to be slightly more upbeat today, denies any acute distress, denies abdominal pain, there has been no bleeding overnight, today's hemoglobin is 8.1. Occasional cough, slight congestion, unable to bring up any phlegm, no fever or chills, she remains on supplemental oxygen, currently on 3 L per pulse ox of 96%, lung sounds reveal a few scattered rhonchi. Blood culture has shown no growth, patient was seen by medical oncology, and CT chest, abdomen and pelvis was completed, again showing cystic mass in the posterior aspect of the stomach that could be a pseudocyst, some evidence of chronic pancreatitis, with multiple small pseudocyst in the body of the pancreas, and there was essentially complete clearing of the very large complex mass on the posterior aspect of the stomach compared to old computed tomography scan. Moderate abdominal ascites is unchanged, extensive subcutaneous edema around the abdomen could related to anasarca. Pneumonia and atelectasis and pleural fluid at the lung bases. The patient is seen today 04/10/2019 in follow-up in the intensive care unit. She is currently resting comfortably in bed. Awake and alert in no acute distress. She is maintaining O2 saturations in the 90s on 3 L/m per nasal cannula. Current hemoglobin is 7.8 continuing to drift down. The plan is to transfer to [facility] possibly today for further intervention and possible core biopsy. Computed tomography scan of the abdomen had revealed a cystic mass at the posterior aspect of the sella stomach. Evidence of chronic pancreatitis with multiple small pseudocysts in the body of the pancreas. Objective - Vital Signs Vital signs: Vital Signs Temp 97.5 F L 04/10/19 08:31 Pulse 77 01/01/20 08:31 Resp 16 04/10/19 08:31 BP 89/56 04/10/19 08:31 Pulse Ox 93 L 04/10/19 06:55 Intake & Output 04/09/19 04/10/19 04/10/19 18:59 06:59 18:59 Intake Total 240 150 Output Total 1725 850 Balance -1485 -700 Weight 76.8 kg Intake: IV 240 0 0.9 at 20 240 0 Intake, IV Titration 150 Amount Levofloxacin 750Mg-D5w 150 Pmx 750 mg In Dextrose/ Water 1 150ml.bag @ 100 mls/hr IVPB [facility] Rx#: [id number] Output: Urine 1725 850 Other: Voiding Method Indwelling Catheter Indwelling Catheter - Exam GENERAL EXAM: Alert, pleasant, pale, 63-year-old female patient, 3 L of oxygen with a pulse ox of 93%, comfortable in no apparent distress. HEAD: Normocephalic/atraumatic. EYES: Normal reaction of pupils, equal size. Conjunctiva pink, sclera white. NOSE: Clear with pink turbinates. THROAT: No erythema or exudates. NECK: No masses, no JVD, no thyroid enlargement, no adenopathy. CHEST: No chest wall deformity. Symmetrical expansion. LUNGS: Equal air entry with some diffuse rhonchi CVS: Regular rate and rhythm, normal S1 and S2, no gallops, no murmurs, no rubs ABDOMEN: Soft, nontender. No hepatosplenomegaly, normal bowel sounds, no guarding or rigidity. EXTREMITIES: No clubbing, mild pitting edema in upper and lower extremities, no cyanosis, 2+ pulses and upper and lower extremities. MUSCULOSKELETAL: Muscle strength and tone normal. SPINE: No scoliosis or deformity SKIN: No rashes CENTRAL NERVOUS SYSTEM: No focal deficits, tone is normal in all 4 extremities. PSYCHIATRIC: Alert and oriented -3. Appropriate affect. Intact judgment and insight. - Labs CBC & Chem 7: 04/10/19 04:24 04/10/19 04:24 Labs: Abnormal Lab Results - Last 24 Hours (Table) 04/10/19 04/10/19 Range/Units 04:24 04:24 RBC 2.52 L (3.80-5.40) m/uL Hgb 7.8 L (11.4-16.0) gm/dL Hct 23.5 L (34.0-46.0) % Sodium 130 L (137-145) mmol/L Chloride 94 L (98-107) mmol/L Carbon Dioxide 36 H (22-30) mmol/L Glucose 67 L (74-99) mg/dL Calcium 7.2 L (8.4-10.2) mg/dL Microbiology - Last 24 Hours (Table) 04/06/19 19:55 Blood Culture - Preliminary Blood No Growth after 72 hours Assessment and Plan Assessment: 1 Acute upper GI bleeding secondary recent diagnosis of bleeding gastric mass possible malignancy and the plan is for transfer to [facility] for further intervention. Computed tomography scan of the abdomen and pelvis had revealed a cystic mass at the posterior aspect of the stomach, possible pseudocyst, complete clearing of very large complex mass in the posterior aspect of the stomach. And evidence of chronic pancreatitis with multiple pseudo-cysts in the body of the pancreas 2 Acute on chronic hypoxic respiratory failure secondary to COPD and bilateral pneumonia. Influenza B infection 3 Generalized weakness secondary to above 4 Coronary artery disease with previous stenting 5 Known history of gastric mass awaiting pathology from [address] [place] [address] 6 acute on chronic anemia secondary to GI bleeding 7 Acute on chronic congestive heart failure, was systolic dysfunction and EF of 40% with previous AICD placement 8. History of multiple sclerosis 9. History of peripheral neuropathy 10. History of ventricular tachycardia and cardiac arrest 11 History of benign essential hypertension 12 History of peripheral vessel occlusive disease 13 History of fibromyalgia 14 History of DJD 15 History of peripheral neuropathy 16 History of ESBL infection 17 History of anxiety and bipolar disorder 18 History of ulcerative colitis and irritable bowel syndrome Plan: The patient was seen and evaluated by Dr. Monet. Hemoglobin 7.8. No plans for transfusion at this time. The plan is to transfer to [facility] for further intervention and evaluation. Complete course of Tamiflu. Complete course of antibiotics. Continue bronchodilators. If not transferred today we'll continue to follow. I, the cosigning physician, performed a history & physical examination of the patient. Lungs sounds are clear. Maintaining good O2 saturations in the 90s on 3 L/m per nasal cannula. I discussed the assessment and plan of care with my nurse practitioner, Rufina Calle. I attest to the above note as dictated by her.
== END 2019-04-10 10:41 | disposition short-term general hospital (02) | DRG 377 ==
LOC: EC 15:44 → 2SICU 19:08
PROVIDERS: ADMIT Hospitalist; ATTEND Hospitalist
DX: K25.4 Chronic or unspecified gastric ulcer with hemorrhage (principal); J10.00 Influenza due to other identified influenza virus with unspecified type of pneumonia; G93.41 Metabolic encephalopathy; J96.21 Acute and chronic respiratory failure with hypoxia; I50.23 Acute on chronic systolic (congestive) heart failure; D62 Acute posthemorrhagic anemia; E87.1 Hypo-osmolality and hyponatremia; J44.0 Chronic obstructive pulmonary disease with (acute) lower respiratory infection; R18.8 Other ascites; F31.30 Bipolar disorder, current episode depressed, mild or moderate severity, unspecified; K51.911 Ulcerative colitis, unspecified with rectal bleeding; K86.1 Other chronic pancreatitis; E03.9 Hypothyroidism, unspecified; E78.5 Hyperlipidemia, unspecified; G35 Multiple sclerosis; I73.9 Peripheral vascular disease, unspecified; K21.9 Gastro-esophageal reflux disease without esophagitis; D50.9 Iron deficiency anemia, unspecified; D63.8 Anemia in other chronic diseases classified elsewhere; F41.0 Panic disorder [episodic paroxysmal anxiety]; G56.00 Carpal tunnel syndrome, unspecified upper limb; I07.1 Rheumatic tricuspid insufficiency; I11.0 Hypertensive heart disease with heart failure; M19.90 Unspecified osteoarthritis, unspecified site; I25.10 Atherosclerotic heart disease of native coronary artery without angina pectoris; M79.7 Fibromyalgia; I25.2 Old myocardial infarction; Z95.810 Presence of automatic (implantable) cardiac defibrillator; Z99.81 Dependence on supplemental oxygen; Z95.5 Presence of coronary angioplasty implant and graft; Z88.0 Allergy status to penicillin; Z87.11 Personal history of peptic ulcer disease; Z87.01 Personal history of pneumonia (recurrent); Z86.79 Personal history of other diseases of the circulatory system; Z86.74 Personal history of sudden cardiac arrest; Z87.891 Personal history of nicotine dependence; Z86.19 Personal history of other infectious and parasitic diseases; Z82.49 Family history of ischemic heart disease and other diseases of the circulatory system; Z79.899 Other long term (current) drug therapy; Z82.0 Family history of epilepsy and other diseases of the nervous system; Z79.890 Hormone replacement therapy
CPT/HCPCS: 36415; 71045; 71046; 71260; 74177; 80048; 80053; 81001; 82272; 82550; 83605; 83690; 84132; 84145; 84484; 85025; 85027; 85610; 85730; 86850; 86900; 86901; 86920; 87040; 87502; 93005; 94640; 96361; 96365; 96375; 99285

== ENCOUNTER 2019-08-07 09:41 | Inpatient (IN) | payer OTHER ==
--- NOTE | 2019-08-07 09:51 | ED ---
Weakness HPI - General Stated complaint: leg weakness Time Seen by Provider: 08/07/19 09:41 Source: patient, EMS, RN notes reviewed, old records reviewed Mode of arrival: EMS Limitations: physical limitation - History of Present Illness Initial comments: This is a 63-year-old female history of multiple medical problems including CHF COPD who was brought in by EMS today because of weakness. Apparently this is a ongoing problem she had a Patterson catheter placement a week ago due to she states edema however her history and inability to answer questions are suspect that. Per paramedics patient attends she is coherent other times cannot answer questions properly. No reports of fevers chills nausea vomiting sweats cough or other symptoms. The patient herself states that her legs are very weak. He does apparently use a wheelchair at home and normally is able to transfer but now is unable to. Review of old history reveals the patient may have MS. Complaint: generalized weakness - Related Data Home Medications Medication Instructions Recorded Confirmed Folic Acid 1 mg PO DAILY 04/08/14 04/06/19 Primidone [Mysoline] 50 mg PO BID 04/12/15 04/06/19 Albuterol Nebulized [Ventolin 2.5 mg INHALATION RT-Q6H PRN 04/13/15 04/06/19 Nebulized] Thiamine [Vitamin B-1] 100 mg PO DAILY 04/13/15 04/06/19 ARIPiprazole [Abilify] 10 mg PO DAILY 03/11/17 04/06/19 Baclofen [Lioresal] 10 mg PO BID 07/09/17 04/06/19 Cholecalciferol (Vitamin D3) 2,000 unit PO DAILY 09/27/18 04/06/19 [Vitamin D3] Ferrous Sulfate [Iron (65 MG 325 mg PO BID 09/27/18 04/06/19 Elemental)] Levothyroxine Sodium [Synthroid] 100 mcg PO DAILY 09/27/18 04/06/19 Amiodarone [Cordarone] 200 mg PO DAILY 02/06/19 04/06/19 Isosorbide Mononitrate ER [Imdur] 30 mg PO DAILY 02/06/19 04/06/19 Albuterol Sulfate [Proair Hfa] 2 puff INHALATION RT-Q6H PRN 03/16/19 04/06/19 Cyanocobalamin (Vitamin B-12) 1,000 mcg PO DAILY 03/16/19 04/06/19 [Vitamin B-12] Fluticasone/Salmeterol 1 puff INHALATION RT-BID 03/16/19 04/06/19 [Fluticasone-Salmeterol 113-14] Omeprazole 40 mg PO BID 03/16/19 04/06/19 Loperamide [Imodium] 2 mg PO DAILY PRN 03/22/19 04/06/19 Previous Rx's Medication Instructions Recorded Atorvastatin [Lipitor] 40 mg PO DAILY #30 tab 09/28/18 ALPRAZolam [Xanax] 0.25 mg PO TID #6 tab 04/02/19 Acetaminophen Tab [Tylenol] 325 mg PO Q6HR PRN tab 04/02/19 Gabapentin [Neurontin] 300 mg PO TID #9 cap 04/02/19 Ipratropium-Albuterol Nebulize 3 ml INHALATION RT-Q2H PRN 04/02/19 [Duoneb 0.5 mg-3 mg/3 ml Soln] ampul.neb Ipratropium-Albuterol Nebulize 3 ml INHALATION RT-QID ampul.neb 04/02/19 [Duoneb 0.5 mg-3 mg/3 ml Soln] guaiFENesin [Mucinex] 1,200 mg PO Q12HR tablet.er 04/02/19 oxyCODONE-APAP 5-325MG [Percocet 1 each PO Q8H PRN #6 tab 04/02/19 5-325 mg] predniSONE 10 mg PO DIRECTED #40 tab 04/02/19 Allergies Allergy/AdvReac Type Severity Reaction Status Date / Time Penicillins Allergy Swelling Verified 08/07/19 09:44 Review of Systems ROS Statement: Those systems with pertinent positive or pertinent negative responses have been documented in the HPI. ROS Other: All systems not noted in ROS Statement are negative. Limitations: ROS unobtainable due to patients medical condition Past Medical History Past Medical History: Coronary Artery Disease (CAD), Chest Pain / Angina, Heart Failure, COPD, Eye Disorder, Fibromyalgia, GERD/Reflux, Hyperlipidemia, Hypertension, Myocardial Infarction (IA), Musculoskeletal Disorder, Neurologic Disorder, Osteoarthritis (OA), Pneumonia, Respiratory Disorder, Skin Disorder, Thyroid Disorder, Vascular Disorder Additional Past Medical History / Comment(s): 11/2012 IA with cardiac arrest/vtach, chronic respiratory failure-uses home O2 prn 2-3L/NC, tracheobronchitis, tricuspid regurgitation, multiple sclerosis, neuropathy bilateral legs/feet, chronic back pain, DDD, migraines, bilateral carpal tunnel syndrome, past L/R rib fractures, past L hip fracture with surgery, PUD with ulcer rupture with surgery, peritonitis, pancreatitis, IBS/ ulcerative colitis, chronic anemia, UTIs, urinary incontinence, endometriosis, hypothyroid, R cataract and L eye cataract forming again, PVD, L leg cellulitis, Last Myocardial Infarction Date:: 2012 History of Any Multi-Drug Resistant Organisms: ESBL Date of last positivie culture/infection: 02/18/2014 MDRO Source:: Blood and Urine E. coli ESBL Past Surgical History: AICD, Appendectomy, Heart Catheterization, Heart Catheter ization With Stent, Orthopedic Surgery, Pacemaker Additional Past Surgical History / Comment(s): Cardioversion, Laparotomy for ruptured gastric ulcer, R foot fracture with surgery, L hip fracture with surgery-has plate and screw, EGD, colonoscopies with bening polypectomy. Past Anesthesia/Blood Transfusion Reactions: No Reported Reaction Additional Past Anesthesia/Blood Transfusion Reaction / Comment(s): Pt has received blood in past without reaction. Date of Last Stent Placement:: 11/2012 Type of Cardiac Device: Permanent Pacemaker, AICD Device Placement Date:: 2012 Past Psychological History: Anxiety, Bipolar, Depression, Panic Disorder Smoking Status: Former smoker Past Alcohol Use History: None Reported Past Drug Use History: None Reported - Past Family History Mother Family Medical History: Musculoskeletal Disorder Additional Family Medical History / Comment(s): MS Sister(s) Family Medical History: Myocardial Infarction (IA) Additional Family Medical History / Comment(s): SISTER ALSO HAS MS Brother(s) Family Medical History: Musculoskeletal Disorder, Neurologic Disorder Additional Family Medical History / Comment(s): MS Father Additional Family Medical History / Comment(s): ETOH abuse, back surgery General Exam - General Exam Comments Initial Comments: This is a well-developed asthenic appearing female who is awake and alert though confused Limitations: physical limitation General appearance: alert, in no apparent distress, lethargic Head exam: Present: atraumatic, normocephalic, normal inspection Eye exam: Present: normal appearance, PERRL, EOMI. Absent: scleral icterus, conjunctival injection, periorbital swelling ENT exam: Present: mucous membranes dry Neck exam: Present: normal inspection. Absent: tenderness, meningismus, lymphadenopathy Respiratory exam: Present: normal lung sounds bilaterally, other (Patient does demonstrate kyphosis). Absent: respiratory distress, wheezes, rales, rhonchi, stridor Cardiovascular Exam: Present: regular rate, normal rhythm, normal heart sounds. Absent: systolic murmur, diastolic murmur, rubs, gallop, clicks GI/Abdominal exam: Present: soft, normal bowel sounds. Absent: distended, tenderness, guarding, rebound, rigid Extremities exam: Present: full ROM, normal capillary refill, other (Some stasis changes noted). Absent: tenderness, pedal edema, joint swelling, calf tenderness Back exam: Present: normal inspection Neurological exam: Present: alert, oriented X3, CN II-XII intact Psychiatric exam: Present: normal affect, normal mood Skin exam: Present: warm, dry, intact, normal color. Absent: rash Course Vital Signs 08/07/19 08/07/19 08/07/19 09:44 11:00 11:58 Temperature 98.2 F Pulse Rate 92 78 86 Respiratory 18 16 16 Rate Blood Pressure 113/73 93/69 115/66 O2 Sat by Pulse 100 100 Oximetry EKG Findings - EKG Results: EKG: interpreted by DEDE, sinus rhythm (Sinus rhythm with the PVCs noted. Unifocal. Rate 85 appear interval 142 QRS duration 94 QT/QTC 336/399 evidence of old inferior posterior infarct of undetermined age) Medical Decision Making - Medical Decision Making Reevaluation patient reveals no change in her status she still is somewhat confused. At times she seems to be cognizant other times not. Patient does have evidence of UTI she'll be admitted case is discussed with Dr. Bay. - Lab Data Result diagrams: 08/07/19 11:33 08/07/19 11:33 Lab Results 08/07/19 08/07/19 08/07/19 Range/Units 10:19 11:33 11:33 WBC 9.9 (3.8-10.6) k/uL RBC 3.48 L (3.80-5.40) m/uL Hgb 10.6 L (11.4-16.0) gm/dL Hct 35.5 (34.0-46.0) % MCV 101.8 H (80.0-100.0) fL MCH 30.3 (25.0-35.0) pg MCHC 29.8 L (31.0-37.0) g/dL RDW 14.8 (11.5-15.5) % Plt Count 375 (150-450) k/uL Neutrophils % 81 % Lymphocytes % 11 % Monocytes % 5 % Eosinophils % 1 % Basophils % 0 % Neutrophils # 8.0 H (1.3-7.7) k/uL Lymphocytes # 1.1 (1.0-4.8) k/uL Monocytes # 0.5 (0-1.0) k/uL Eosinophils # 0.1 (0-0.7) k/uL Basophils # 0.0 (0-0.2) k/uL Hypochromasia Marked Macrocytosis Slight Sodium (137-145) mmol/L Potassium (3.5-5.1) mmol/L Chloride (98-107) mmol/L Carbon Dioxide (22-30) mmol/L Anion Gap mmol/L BUN (7-17) mg/dL Creatinine (0.52-1.04) mg/dL Est GFR (CKD-EPI)AfAm (>60 ml/min/1.73 sqM) Est GFR (CKD-EPI)NonAf (>60 ml/min/1.73 sqM) Glucose (74-99) mg/dL Calcium (8.4-10.2) mg/dL Magnesium (1.6-2.3) mg/dL Total Bilirubin (0.2-1.3) mg/dL AST (14-36) U/L ALT (4-34) U/L Alkaline Phosphatase (38-126) U/L Ammonia <9 (<30) umol/L Creatine Kinase (30-135) U/L Troponin I (0.000-0.034) ng/mL Total Protein (6.3-8.2) g/dL Albumin (3.5-5.0) g/dL Lipase (23-300) U/L Urine Color Yellow Urine Appearance Cloudy H (Clear) Urine pH 7.0 (5.0-8.0) Ur Specific [place] 1.008 (1.001-1.035) Urine Protein Negative (Negative) Urine Glucose (UA) Negative (Negative) Urine Ketones Negative (Negative) Urine Blood Negative (Negative) Urine Nitrite Positive H (Negative) Urine Bilirubin Negative (Negative) Urine Urobilinogen <2.0 (<2.0) mg/dL Ur Leukocyte Esterase Large H (Negative) Urine RBC 3 (0-5) /hpf Urine WBC 51 H (0-5) /hpf Urine WBC Clumps Few H (None) /hpf Ur Squamous Epith Cells <1 (0-4) /hpf Urine Bacteria Many H (None) /hpf Hyaline Casts 1 (0-2) /lpf Urine Mucus Rare H (None) /hpf Urine Opiates Screen Not Detected (NotDetected) Ur Oxycodone Screen Detected H (NotDetected) Urine Methadone Screen Not Detected (NotDetected) Ur Propoxyphene Screen Not Detected (NotDetected) Ur Barbiturates Screen Detected H (NotDetected) U Tricyclic Antidepress Not Detected (NotDetected) Ur Phencyclidine Scrn Not Detected (NotDetected) Ur Amphetamines Screen Not Detected (NotDetected) U Methamphetamines Scrn Not Detected (NotDetected) U Benzodiazepines Scrn Detected H (NotDetected) Urine Cocaine Screen Not Detected (NotDetected) U Marijuana (THC) Screen Not Detected (NotDetected) Serum Alcohol mg/dL 08/07/19 08/07/19 Range/Units 11:33 11:33 WBC (3.8-10.6) k/uL RBC (3.80-5.40) m/uL Hgb (11.4-16.0) gm/dL Hct (34.0-46.0) % MCV (80.0-100.0) fL MCH (25.0-35.0) pg MCHC (31.0-37.0) g/dL RDW (11.5-15.5) % Plt Count (150-450) k/uL Neutrophils % % Lymphocytes % % Monocytes % % Eosinophils % % Basophils % % Neutrophils # (1.3-7.7) k/uL Lymphocytes # (1.0-4.8) k/uL Monocytes # (0-1.0) k/uL Eosinophils # (0-0.7) k/uL Basophils # (0-0.2) k/uL Hypochromasia Macrocytosis Sodium 134 L (137-145) mmol/L Potassium 4.4 (3.5-5.1) mmol/L Chloride 97 L (98-107) mmol/L Carbon Dioxide 32 H (22-30) mmol/L Anion Gap 5 mmol/L BUN 13 (7-17) mg/dL Creatinine 0.84 (0.52-1.04) mg/dL Est GFR (CKD-EPI)AfAm 86 (>60 ml/min/1.73 sqM) Est GFR (CKD-EPI)NonAf 74 (>60 ml/min/1.73 sqM) Glucose 102 H (74-99) mg/dL Calcium 8.3 L (8.4-10.2) mg/dL Magnesium 1.7 (1.6-2.3) mg/dL Total Bilirubin 0.4 (0.2-1.3) mg/dL AST 33 (14-36) U/L ALT 11 (4-34) U/L Alkaline Phosphatase 69 (38-126) U/L Ammonia (<30) umol/L Creatine Kinase 32 (30-135) U/L Troponin I <0.012 (0.000-0.034) ng/mL Total Protein 5.9 L (6.3-8.2) g/dL Albumin 2.7 L (3.5-5.0) g/dL Lipase 78 (23-300) U/L Urine Color Urine Appearance (Clear) Urine pH (5.0-8.0) Ur Specific [place] (1.001-1.035) Urine Protein (Negative) Urine Glucose (UA) (Negative) Urine Ketones (Negative) Urine Blood (Negative) Urine Nitrite (Negative) Urine Bilirubin (Negative) Urine Urobilinogen (<2.0) mg/dL Ur Leukocyte Esterase (Negative) Urine RBC (0-5) /hpf Urine WBC (0-5) /hpf Urine WBC Clumps (None) /hpf Ur Squamous Epith Cells (0-4) /hpf Urine Bacteria (None) /hpf Hyaline Casts (0-2) /lpf Urine Mucus (None) /hpf Urine Opiates Screen (NotDetected) Ur Oxycodone Screen (NotDetected) Urine Methadone Screen (NotDetected) Ur Propoxyphene Screen (NotDetected) Ur Barbiturates Screen (NotDetected) U Tricyclic Antidepress (NotDetected) Ur Phencyclidine Scrn (NotDetected) Ur Amphetamines Screen (NotDetected) U Methamphetamines Scrn (NotDetected) U Benzodiazepines Scrn (NotDetected) Urine Cocaine Screen (NotDetected) U Marijuana (THC) Screen (NotDetected) Serum Alcohol <10 mg/dL - Radiology Data Radiology results: report reviewed (I did review the imaging and report no acute findings.), image reviewed Disposition Clinical Impression: Urinary tract infection, Dehydration, Multiple sclerosis exacerbation, Delirium due to general medical condition Disposition: ADMITTED IP TO THIS HOSP Condition: Fair Referrals: Alexei Vera MD [Primary Care Provider] - 1-2 days
[2019-08-07 10:31] LABS: Appearance,Urine Cloudy (Clear); Bacteria,Urine Many /hpf; Bilirubin,Urine Negative (Negative); Blood,Urine Negative (Negative); Color,Urine Yellow; Glucose,Urine (UA) Negative (Negative); Hyaline Casts,Urine 1 /lpf (0-2); Ketones,Urine Negative (Negative); Leukocyte Esterase,Urine Large (Negative); Mucus,Urine Rare /hpf; Nitrite,Urine Positive (Negative); Protein,Urine Negative (Negative); RBC,Urine 3 /hpf (0-5); Specific Gravity,Urine 1.008 (1.001-1.035); Squamous Epithelial Cell,Urine <1 /hpf (0-4); Urobilinogen,Urine <2.0 mg/dL (<2.0); WBC,Urine 51 /hpf (0-5)
--- NOTE | 2019-08-07 10:34 | XR ---
EXAMINATION TYPE: XR chest 2V DATE OF EXAM: 08/07/2019 COMPARISON: 04/07/2019 INDICATION: Confusion, weakness TECHNIQUE: Frontal and lateral views of the chest are obtained. FINDINGS: The heart size is normal. The pulmonary vasculature is normal. The lungs are clear. Patient is rotated to the right. Pacemaker overlies left chest. IMPRESSION: 1. No acute pulmonary process.
[2019-08-07 10:37] LABS: Amphetamine Screen,Urine Not Detected (NotDetected); Barbiturate Screen,Urine Detected (NotDetected); Benzodiazepines Screen,Urine Detected (NotDetected); Cocaine Screen,Urine Not Detected (NotDetected); Methadone Screen, Urine Not Detected (NotDetected); Opiate Screen,Urine Not Detected (NotDetected); Oxycodone Screen, Urine Detected (NotDetected); Phencyclidine Screen,Urine Not Detected (NotDetected); Tricyclic Antidepressant,Urine Not Detected (NotDetected); Urn Cannabinoid Scrn Not Detected (NotDetected)
[2019-08-07 11:42] LABS: Basophils % (A) 0 %; Eosinophils # (A) 0.1 k/uL (0-0.7); Eosinophils % (A) 1 %; HCT 35.5 % (34.0-46.0); HGB 10.6 gm/dL (11.4-16.0); Hypochromasia Marked; Lymphocytes # (A) 1.1 k/uL (1.0-4.8); Lymphocytes % (A) 11 %; MCH 30.3 pg (25.0-35.0); MCHC 29.8 g/dL (31.0-37.0); MCV 101.8 fL (80.0-100.0); Macrocytosis Slight; Mean Platelet Volume 7.5; Monocytes # (A) 0.5 k/uL (0-1.0); Monocytes % (A) 5 %; Neutrophils % (A) 81 %; Platelet Count 375 k/uL (150-450); RBC 3.48 m/uL (3.80-5.40); RDW 14.8 % (11.5-15.5); WBC 9.9 k/uL (3.8-10.6)
[2019-08-07 12:01] LABS: ALT 11 U/L (4-34); AST 33 U/L (14-36); African American GFR (CKD) 86 (>60 ml/min/1.73 sqM); Albumin 2.7 g/dL (3.5-5.0); Alcohol <10 mg/dL; Alkaline Phosphatase 69 U/L (38-126); Anion Gap 5 mmol/L; Blood Urea Nitrogen 13 mg/dL (7-17); Calcium 8.3 mg/dL (8.4-10.2); Carbon Dioxide 32 mmol/L (22-30); Chloride 97 mmol/L (98-107); Creatine Kinase 32 U/L (30-135); Glucose 102 mg/dL (74-99); Magnesium 1.7 mg/dL (1.6-2.3); Non-African American GFR(CKD) 74 (>60 ml/min/1.73 sqM); Sodium 134 mmol/L (137-145); Total Bilirubin 0.4 mg/dL (0.2-1.3); Total Protein 5.9 g/dL (6.3-8.2)
[2019-08-07 12:05] LABS: Potassium 4.4 mmol/L (3.5-5.1)
[2019-08-07] MEDS ORDERED: LEVOFLOXACIN 500MG-D5W PMX 500 MG in DEXTROSE/WATER 1 100ML.BAG IVPB STA (12:22)
[2019-08-07] MEDS ORDERED: HYDROCORTISONE SUCCINATE 100 MG/2 ML VIAL IV STA (12:25)
[2019-08-07] MEDS ORDERED: NALOXONE 0.4 MG/ML 1 ML VIAL IV PRN (12:30)
[2019-08-07] MEDS ORDERED: ACETAMINOPHEN TAB 325 MG TAB PO PRN (12:30)
[2019-08-07] MEDS ORDERED: ALBUTEROL NEBULIZED 2.5 MG/3 ML INHALATION PRN (12:32)
[2019-08-07] MEDS ORDERED: LOPERAMIDE 2 MG CAP PO PRN (12:32)
[2019-08-07] MEDS ORDERED: oxyCODONE-APAP 5-325MG 1 EACH TAB PO STA (12:57)
[2019-08-07] MEDS: SODIUM CHLORIDE 0.9% 1,000 ML IV SCH (14:15)
[2019-08-07] MEDS: PANTOPRAZOLE 40 MG TABLET PO SCH (15:40)
[2019-08-07] MEDS: IPRATROPIUM-ALBUTEROL 3 ML NEB INHALATION SCH ×3 (17:00→19:43)
[2019-08-07] MEDS: GABAPENTIN 300 MG CAP PO SCH ×2 (17:18→22:30)
[2019-08-07] MEDS: SYMBICORT 160-4.5 MCG INHALER INHALATION SCH (19:45)
[2019-08-07] MEDS ORDERED: BACLOFEN 10 MG TAB PO SCH (21:00)
[2019-08-07] MEDS: FERROUS SULFATE 325 MG TAB PO SCH (21:05)
[2019-08-07] MEDS: PRIMIDONE 50 MG TAB PO SCH (21:05)
[2019-08-07] MEDS: guaiFENesin 600 MG TABLET.ER PO SCH (21:05)
[2019-08-07] MEDS ORDERED: MECLIZINE 25 MG TAB PO PRN (22:00)
[2019-08-07] MEDS: SUCRALFATE 1 GM TAB PO SCH (22:30)
[2019-08-07] MEDS: oxyCODONE-APAP 5-325MG 1 EACH TAB PO PRN (22:30)
[2019-08-07] MEDS ORDERED: NYSTATIN 100,000 UNIT/GM POWD 15 GM TOPICAL PRN (23:00)
--- NOTE | 2019-08-08 02:00 | CONS ---
CONSULTATION DATE OF CONSULTATION: 08/04/2019. REASON FOR CONSULT: Increasing weakness of the legs. This is a new neurology consult requested for further advice and recommendations for a 63-year-old female that was brought in by EMS for increasing weakness. The patient reports that she has had increasing weakness over the past weeks after a Patterson was placed due to edema in her extremities. The patient reports that she is wheelchair bound. Has been wheelchair bound over the last several years. She reports that when the EMS arrived, she was so weak that she could not independently transfer out of the wheelchair onto the stretcher. She reports that her legs are becoming weaker and weaker over the last several months. The patient denies having any nausea, vomiting, or diarrhea or fever. She reports that was given a diagnosis of possible multiple sclerosis many years ago. She has seen a neurologist in the past, one is Dr. Wise and more recently Dr. Valle. She reports that with this more recent neurologist, she was starting to undergo a more formal workup for multiple sclerosis, but then with the pandemic this was put on hold. She reminds me that she cannot undergo any MRI testing as she has a pacemaker. She has never undergone any spinal fluid analysis for this diagnosis either. The patient reports prior to admission she had approximately 48 hours of diarrhea without any abdominal pain. Then again, she mentioned she has diarrhea often intermittently over the past several months. The day prior to admission, she felt her legs becoming weaker to the point she was unable to actually feel her legs. She was feeling numbness and no strength to even push off her legs. She reports that she has had weakness over the years, which required her to use a wheelchair to mobilize but not to this extent of weakness. This increasing weakness that she is now reporting began approximately several months ago, but prior to admission, it was quite severe. The patient reports that she was last well and healthy back in her 40s. It was during her 50s where she was under significant social stressors of losing her home, business, followed by divorce at her health deteriorated. 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 She denies using any substance abuse or even marijuana. PAST MEDICAL HISTORY: Significant for multiple head traumas without loss of consciousness. Fractured clavicle. She has chronic back and cervical spine pain leading her to be opioid dependent. COPD. Cellulitis of the lower extremities SURGICAL HISTORY: Significant for bone spurs removed from her right ankle over 25 years ago. Additional medical history: FAMILY HISTORY: Her mother also has been given a diagnosis of multiple sclerosis with essential tremor. Her mother also presented with progressive weakness leading her to be wheelchair bound. She reports that her mother also has distal wasting of the muscles in the legs. She has 2 sisters, 1 which also has essential tremor. Paternal: Her father of a brain hemorrhage secondary to stroke. SOCIAL HISTORY: Patient is disabled and lives with her boyfriend. REVIEW OF SYSTEMS: A 10-point review of systems was obtained with positive pertinents and negatives related to the history of present illness. The patient reports that she has had a 30 pounds weight loss over the last 24 months. PHYSICAL EXAMINATION: HEENT: Progressive cataracts leading to decreased visual acuity. Chest: Chronic nonproductive cough. Cardiac: Patient reports frequently irregular heart rate. Gastrointestinal: The patient reports intermittent diarrhea. Extremities: Increased joint pain in the hips. Severe inflammation & tenderness of the lower legs Psychological: Increased depression but no suicidal ideation. Sleep: The patient reports overall she sleeps well, but does wake up occasionally to go to the bathroom. EXAMINATION: Patient examined, chart reviewed. APPEARANCE: The patient is very emaciated, chronically ill-appearing, suspect adult failure to thrive. HEENT: NECK: Supple. Oropharynx is clear. Broad-based tongue. Mallampati grade 3. Pulses: Radial pedal pulses are equal and symmetric. EXTREMITIES: Arthritic changes are noted in the hands bilaterally. There is significant cellulitis noted in the legs. NEUROLOGICAL EXAM Mental status: awake, alert. Speech is fluent. Affect is irritable and sad. Pupils: 2 mm equally reactive to light and accommodation. Cranial nerve examination: Extraocular movements are full. No nystagmus is noted on vertical or horizontal gaze. V1-V3 sensory is intact, but diminished on the left. Palate elevates symmetrically. Cranial nerve 8 is intact by clinical observation. Shoulder shrug is symmetric. Tongue is midline without fasciculations deviation. Lid ptosis is noted on the right. Visual field. The patient is unable to see in the right eye due to cataracts. Visual perea are intact in the left eye to finger counting. Motor examination. mild increase in tone noted in the upper and lower extremities on passive range of motion. No fasciculations noted. Mild tremor occasionally is noted on intention in the hands bilaterally. Strength is 5/5 the deltoids bilaterally. Right triceps is 4/5, left triceps 5/5. finger flexion is 4/5, foot flexion is 5/5. Toe extension is 3/5. Finger extension is 4/5 bilaterally. There is significant weakness noted distally in the legs along with significant distal wasting of the legs consistent with an inverted champagne bottle open (Vzqeyak-Ftxzv-Vdukv disease). Significant wasting is noted in the feet bilaterally. Bilateral hammertoes present with high arches. Pronator drift negative. Deep tendon reflexes +1 over biceps, brachioradialis. Patellar reflexes are absent bilaterally. Ankle jerks are absent bilaterally. 1-2 beats of ankle clonus on the left ankle. There is unusually increased tone noted in the ankles bilaterally. Coordination testing. Intact to [id number] testing with eyes open eyes closed. No dysmetria noted. The patient was unable to do [id number] maneuver due to weakness. There is poor coordination in the hand, but the patient was able to do his finger-to- nose testing with effort. No gross dysmetria noted. Sensory examination is intact to pinprick in the upper extremities and hands. Sensation is diminished over the right ankle, but intact in the left leg. ASSESSMENT: This is a 63-year-old female presenting to the emergency room with sudden onset of lower extremity weakness to where she could not transfer out of her wheelchair. She has a complicated past medical history in that there are many factors that could lead to generalized weakness such as medications and general poor condition. Is important to point out that this patient is on oxycodone, is opioid dependent as well as on primidone, which is a form of barbiturate. Based on her family history of her mother presenting with similar progressive weakness of the lower extremities and then becoming wheelchair bound in her 50s, this patient also has a similar presentation. 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 This patient also has significant cellulitis in the legs which raises concern for vascular compromise. Her feet were extremely tight and difficult to flex and extend. The patient is also on gabapentin, which could be aggravating the edema in her lower extremities. Gabapentin is known to cause edema. When this occurs, the dose should be lowered. DVT MUST be excluded. In this differential diagnosis with the positive family history with her mother, similar presentation makes hereditary motor neuropathy high on the list. Other diseases to consider would be: 1. chronic inflammatory demyelinating polyneuropathy such as an immune mediated neuropathy, 2. Guillain [place] syndrome 3. metabolic, nutritional and neurotoxic medications. Guillain [place] syndrome is a consideration being that she reports diarrhea 48 hours prior. However, her history indicates that she tends to have diarrhea intermittently on a chronic basis. RECOMMENDATIONS: 1. Would recommend an ultrasound of the legs tonight to rule out possible DVT. 2. Would consider lowering the gabapentin dosage by 25%. 3. Metabolic labs to include: sed rate, CRP, CK, TSH & free t4 4. The patient must be seen by a neurologist undergo the appropriate genetic testing for hereditary motor neuropathy (AKA Cxywlvs-Lpfnz-Ywzry disease). An outpatient neurologist will then begin to proceed with the appropriate workup which will include EMG nerve conduction studies, sural nerve biopsy, and possibly cerebral spinal fluid. Cerebral spinal fluid in hereditary motor neuropathies will usually be normal but protein elevated. Sonography of the peripheral nerves is also part of a comprehensive workup. 5. Recommend physical therapy assessment. 6. Baclofen: Baclofen can increase weakness as 1 looses ones ability for tone and balance and high excessive doses. I will be re-evaluating and discussing this dose with the patient with the hope to potentially decrease the dose by at least 10-15 percent. 7. Lastly, this patient has chronic opioid dependence. She is currently on Percocet 3 times a day as needed, but apparently is taking this on a scheduled basis. Further assessment of Percocet use with Pain Management would be helpful. If pain management is available as an inpatient consult service, this would be greatly appreciated. Thank you for this consultation. This patient's prognosis remains guarded. Neurology will follow closely and make recommendations. Batool Toscano MD Board Certified in Neurology & Sleep medicine MMBOBBY / CHEON: [id number] / MTDD
[2019-08-08] MEDS: LEVOTHYROXINE 100 MCG TAB PO SCH (05:42)
[2019-08-08] MEDS: SODIUM CHLORIDE 0.9% 1,000 ML IV SCH ×2 (05:43→14:14)
[2019-08-08] MEDS: ATORVASTATIN 40 MG TAB PO SCH (08:24)
[2019-08-08] MEDS: CHOLECALCIFEROL 1,000 UNIT TAB PO SCH (08:24)
[2019-08-08] MEDS: ISOSORBIDE MONONITRATE ER 30 MG TAB.ER.24H PO SCH (08:24)
--- NOTE | 2019-08-08 08:24 | US ---
"EXAMINATION TYPE: US venous doppler duplex LE DATE OF EXAM: 08/08/2019 7:52 AM COMPARISON: NONE CLINICAL HISTORY: progressive cellulitis in legs weakness. pain. Patient states she is on plavix. SIDE PERFORMED: Bilateral TECHNIQUE: The lower extremity deep venous system is examined utilizing real time linear array sonog tiffani with graded compression, doppler sonography and color-flow sonography. VESSELS IMAGED: External Iliac Vein (EIV) Common Femoral Vein Deep Femoral Vein Greater Saphenous Vein * Femoral Vein Popliteal Vein Small Saphenous Vein * Proximal Calf Veins (* superficial vessels) Right Leg: Appears POSITIVE for DVT from CFV to distal FV. Left Leg: Appears POSITIVE for DVT from CFV to proximal calf veins. Grayscale, color doppler, spectral doppler imaging performed of the deep veins of the bilateral lower extremities. There is hyperechoic material filling and expanding the lumen beginning bilateral groi n region extending through superficial femoral veins bilaterally. Longer segment thrombus in the left lower extremity noted extending into popliteal vein during real-time scanning per technologist thoug h these images either are not saved or not sent to PACS. IMPRESSION: At least significant right-sided acute DVT with larger left-sided acute DVT per technolo gist. A [place] level critical message alert has been initiated for Adolfo Bay MD via the [employer] 36 0 | Critical Results System on 08/08/2019 8:21 AM. This message alert has been sent to Adolfo Bay MD via the preferences provided by the clinician for the receipt of Radiology Critical Findings. [facility] ID [id number]."
[2019-08-08] MEDS: POTASSIUM CHLORIDE ER 20 MEQ TAB.ER PO SCH (08:26)
[2019-08-08] MEDS: ASPIRIN 81 MG PO SCH (08:26)
[2019-08-08] MEDS: SUCRALFATE 1 GM TAB PO SCH ×4 (08:26→20:53)
[2019-08-08] MEDS: THIAMINE 100 MG TAB PO SCH (08:27)
[2019-08-08] MEDS: guaiFENesin 600 MG TABLET.ER PO SCH ×2 (08:27→20:54)
[2019-08-08] MEDS: PRIMIDONE 50 MG TAB PO SCH ×2 (08:28→20:53)
[2019-08-08] MEDS: PANTOPRAZOLE 40 MG TABLET PO SCH ×2 (08:29→16:23)
[2019-08-08] MEDS: FERROUS SULFATE 325 MG TAB PO SCH ×2 (08:29→20:53)
[2019-08-08] MEDS: CYANOCOBALAMIN 500 MCG TAB PO SCH (08:30)
[2019-08-08] MEDS: AMIODARONE 200 MG TAB PO SCH (08:30)
[2019-08-08] MEDS: GABAPENTIN 300 MG CAP PO SCH ×3 (08:30→20:54)
[2019-08-08] MEDS: oxyCODONE-APAP 5-325MG 1 EACH TAB PO PRN ×2 (08:39→20:53)
[2019-08-08] MEDS: FOLIC ACID 1 MG TAB PO SCH (08:40)
[2019-08-08] MEDS ORDERED: FUROSEMIDE 40 MG TAB PO SCH (09:00)
[2019-08-08 09:08] VITALS: BMI 23.6
[2019-08-08] MEDS: IPRATROPIUM-ALBUTEROL 3 ML NEB INHALATION SCH ×4 (09:12→19:13)
[2019-08-08] MEDS: SYMBICORT 160-4.5 MCG INHALER INHALATION SCH ×2 (09:12→19:14)
[2019-08-08] MEDS: ARIPiprazole 10 MG TAB PO SCH (09:21)
--- NOTE | 2019-08-08 12:12 | ECHOF ---
Referral Reason:Increasing fatigue weaknness HX copd cardiac dse MEASUREMENTS -------- HEIGHT: 157.5 cm WEIGHT: 58.5 kg BP: 94/58 IVSd: 1.3 cm (0.6 - 1.1) LVIDd: 3.7 cm (3.9 - 5.3) LVPWd: 1.6 cm (0.6 - 1.1) IVSs: 1.3 cm LVIDs: 3.3 cm LVPWs: 1.1 cm MV E Da: 0.44 m/s MV DecT: 317 ms MV A Da: 0.98 m/s MV E/A Ratio: 0.45 RAP: 5.00 mmHg RVSP: 35.30 mmHg FINDINGS -------- Sinus rhythm. This was a technically difficult study with suboptimal views. Pt has severe COPD. Sitting up. There is moderate concentric left ventricular hypertrophy. Overall left ventricular systolic functi on is mildly impaired with, an EF between 45 - 50 %. The RV was not well visualized. The left atrium was not well visualized. The right atrium was not well visualized. 5.0mg of Lumason was utilized for enhancement of images The aortic valve was not well visualized. There is no evidence of aortic stenosis. The mitral valve was not well visualized. Mild mitral regurgitation is present. The tricuspid valve was not well visualized. Mild tricuspid regurgitation present. There is mild pulmonary hypertension. The right ventricular systolic pressure, as measured by Doppler, is 35.30mm Hg. The pulmonic valve was not well visualized. There is no pericardial effusion. CONCLUSIONS -------- 1. Sinus rhythm. 2. This was a technically difficult study with suboptimal views. 3. Pt has severe COPD. Sitting up. 4. There is moderate concentric left ventricular hypertrophy. 5. The RV was not well visualized. 6. The left atrium was not well visualized. 7. The right atrium was not well visualized. 8. 5.0mg of Lumason was utilized for enhancement of images 9. The aortic valve was not well visualized. 10. There is no evidence of aortic stenosis. 11. The mitral valve was not well visualized. 12. Mild mitral regurgitation is present. 13. The tricuspid valve was not well visualized. 14. Mild tricuspid regurgitation present. 15. There is mild pulmonary hypertension. 16. The right ventricular systolic pressure, as measured by Doppler, is 35.30mmHg. 17. The pulmonic valve was not well visualized. 18. There is no pericardial effusion. CERAMIC CHEMIST: iLsa Garcia RDCS
[2019-08-08] MEDS ORDERED: HEPARIN SODIUM,PORCINE 5,000 UNIT/ML 1 ML VIAL IV PRN (12:48)
[2019-08-08 13:38] LABS: Basophils % (A) 0 %; Eosinophils % (A) 0 %; HCT 28.2 % (34.0-46.0); Hypochromasia Marked; Lymphocytes # (A) 2.4 k/uL (1.0-4.8); Lymphocytes % (A) 24 %; MCH 30.4 pg (25.0-35.0); MCHC 29.6 g/dL (31.0-37.0); Macrocytosis Slight; Mean Platelet Volume 7.5; Monocytes # (A) 0.4 k/uL (0-1.0); Monocytes % (A) 4 %; Neutrophils # (A) 6.9 k/uL (1.3-7.7); Neutrophils % (A) 70 %; Platelet Count 370 k/uL (150-450); RBC 2.74 m/uL (3.80-5.40); RDW 14.9 % (11.5-15.5); WBC 9.9 k/uL (3.8-10.6)
[2019-08-08 13:43] LABS: HGB 8.3 gm/dL (11.4-16.0)
[2019-08-08 13:45] LABS: INR 1.1 (<1.2); Partial Thromboplastin Time 26.3 sec (22.0-30.0); Prothrombin Time 11.1 sec (9.0-12.0)
[2019-08-08] MEDS: HEPARIN SOD,PORK IN 0.45% NACL 25,000 UNIT in 0.45% NACL 1 250ML.BAG IV SCH (14:11)
--- NOTE | 2019-08-08 19:28 | P.HPIM ---
History of Present Illness H&P Date: 08/08/19 Chief Complaint: Lower extremity weakness history of presenting complaint: This is a 63-year-old patient who follows with visiting physicians Dr. Vera.. Normally uses a wheelchair or a walker to get about. Chronic stable medical conditions include, coronary artery disease, COPD in an ex-smoker, chronic fibromyalgia, GERD, hyperlipidemia, essential hypertension, osteoarthritis, hypothyroid, chronic multiple sclerosis, peripheral neuropathy lower extremity, chronic urinary incontinence. Patient also was worked up at [facility] for a gastric greater curvature mass which eventually showed up to be normal smoked muscle cells. Patient now presents with increasing weakness in both lower extremity. No pain. No change in bowel or urine. Patient normally uses a walker and a wheelchair. No fever no chills. No back pain. Patient for a week has now had a Patterson catheter. Appetite is fair. Neurology was consulted. This morning Doppler ultrasound ordered. Her weakness on lower extremity this morning is resolved. Review of systems: GEN.: None EYES: None HEENT: None NECK: None RESPIRATORY: As above CARDIOVASCULAR: None GASTROINTESTINAL: None GENITOURINARY: None MUSCULOSKELETAL: joint pain LYMPHATICS: None HEMATOLOGICAL: None PSYCHIATRY: None NEUROLOGICAL: does use a wheelchair or a walker-rest as above Social history: lives alone. Has a friend Alvarado who spends most of the day with her. uses walker and/or wheelchair history of alcohol abuse last drink over 20 years ago. Also smoked a pack a day for close to 40 years up until very recently. Physical examination: VITAL SIGNS: 98.2, 92, 18, 113/73, 100% on room air GENERAL: Propped up in bed, awake EYES: Pupils equal. Conjunctiva pale HEENT: External appearance of nose and ears normal, oral cavity grossly normal. NECK: JVD not raised; masses not palpable. HEART: First and second heart sounds are normal; mild edema. LUNGS: Respiratory rate increased, decreased breath sounds. ABDOMEN: Soft, no tenderness, no guarding or rigidity, liver spleen not palpable, no masses palpable. LYMPHATICS: No lymph nodes palpable in the axilla and neck. PSYCH: Alert and oriented x3; mood and affect normal. Investigations: White count 9.9 hemoglobin 10.6 platelets 375 progression 4.4 creatinine 0.84 Urine drug GEN positive for oxycodone, barbiturates, benzodiazepines Serum alcohol less than 10, coronavirus PCR-not detected EKG tracing personally reviewed by me-normal sinus rhythm with Q waves in the inferior leads, PVC Chest x-ray film personally reviewed by me-possible some chronic changes Doppler ultrasound-significant right-sided acute DVT lower extremity with larger lower extremity left-sided acute DVT Assessment: -Acute bilateral lower extremity DVT with greater than the left leg compared to the right, and a patient with limited activity -Gastric ulcer disease -Ohqdq-fehrzlysa-mcmumpd mass, workup done at [facility].-biopsy showing smoothl muscle mass, -Solitary gallstone, asymptomatic -Coronary artery disease -COPD in an ex-smoker -Chronic fibromyalgia -GERD -Hyperlipidemia -Essential hypertension -Primary osteoarthritis -Hypothyroid -Chronic multiple sclerosis -Peripheral neuropathy both the lower extremity -Chronic urinary incontinence -Chronic gait dysfunction uses a walker/wheelchair plan: Patient started on IV heparin. Home medications resumed. We'll consult vascular surgery. Because of initial presentation of weakness lower extremity a lso neurology was consulted. Past Medical History Past Medical History: Coronary Artery Disease (CAD), Chest Pain / Angina, Heart Failure, COPD, Eye Disorder, Fibromyalgia, GERD/Reflux, Hyperlipidemia, Hypertension, Myocardial Infarction (RI), Musculoskeletal Disorder, Neurologic Disorder, Osteoarthritis (OA), Pneumonia, Respiratory Disorder, Skin Disorder, Thyroid Disorder, Vascular Disorder Additional Past Medical History / Comment(s): 11/2012 RI with cardiac arrest/vtach, chronic respiratory failure-uses home O2 prn 2-3L/NC, t racheobronchitis, tricuspid regurgitation, multiple sclerosis, neuropathy bilateral legs/feet, chronic back pain, DDD, migraines, bilateral carpal tunnel syndrome, past L/R rib fractures, past L hip fracture with surgery, PUD with ulcer rupture with surgery, peritonitis, pancreatitis, IBS/ ulcerative colitis, chronic anemia, UTIs, urinary incontinence, endometriosis, hypothyroid, R cataract and L eye cataract forming again, PVD, L leg cellulitis, Last Myocardial Infarction Date:: 2012 History of Any Multi-Drug Resistant Organisms: ESBL Date of last positivie culture/infection: 02/18/2014 MDRO Source:: Blood and Urine E. coli ESBL Past Surgical History: AICD, Appendectomy, Heart Catheterization, Heart Catheterization With Stent, Orthopedic Surgery, Pacemaker Additional Past Surgical History / Comment(s): Cardioversion, Laparotomy for ruptured gastric ulcer, R foot fracture with surgery, L hip fracture with surgery-has plate and screw, EGD, colonoscopies with bening polypectomy. Past Anesthesia/Blood Transfusion Reactions: No Reported Reaction Additional Past Anesthesia/Blood Transfusion Reaction / Comment(s): Pt has received blood in past without reaction. Date of Last Stent Placement:: 11/2012 Type of Cardiac Device: Permanent Pacemaker, AICD Device Placement Date:: 2012 Past Psychological History: Anxiety, Bipolar, Depression, Panic Disorder Additional Psychological History / Comment(s): pt. wouldn't stated she does'nt know how she ended up with a legal guardian shweta cooper.pt stated she lives at [facility] -has help come in to do cleaning,cooking,bathing. Smoking Status: Former smoker Past Alcohol Use History: None Reported Additional Past Alcohol Use History / Comment(s): hx. alcohol abuse-last drank 12 yrs. ago patient is a smoker one pack per day for 40 years and quit 15 days ago. She has history of marijuana use in the past but none at this time. She a lso has history of alcohol abuse but quit 12 years ago. She is currently living on her own and has home care and assistance and plan to return there at the time of discharge. Past Drug Use History: None Reported - Past Family History Mother Family Medical History: Musculoskeletal Disorder Additional Family Medical History / Comment(s): MS Sister(s) Family Medical History: Myocardial Infarction (RI) Additional Family Medical History / Comment(s): SISTER ALSO HAS MS Brother(s) Family Medical History: Musculoskeletal Disorder, Neurologic Disorder Additional Family Medical History / Comment(s): MS Father Additional Family Medical History / Comment(s): ETOH abuse, back surgery Medications and Allergies Home Medications Medication Instructions Recorded Confirmed Type Folic Acid 1 mg PO DAILY 04/08/14 08/07/19 History Thiamine [Vitamin B-1] 100 mg PO DAILY 04/13/15 08/07/19 History ARIPiprazole [Abilify] 10 mg PO DAILY 03/11/17 08/07/19 History Cholecalciferol (Vitamin D3) 2,000 unit PO DAILY 09/27/18 08/07/19 History [Vitamin D3] Ferrous Sulfate [Iron (65 MG 325 mg PO BID 09/27/18 08/07/19 History Elemental)] Levothyroxine Sodium [Synthroid] 100 mcg PO DAILY 09/27/18 08/07/19 History Atorvastatin [Lipitor] 40 mg PO DAILY #30 tab 09/28/18 08/07/19 Rx Isosorbide Mononitrate ER [Imdur] 30 mg PO DAILY 02/06/19 08/07/19 History Albuterol Sulfate [Proair Hfa] 2 puff INHALATION RT-QID PRN 03/16/19 08/07/19 History Fluticasone/Salmeterol 1 puff INHALATION RT-BID 03/16/19 08/07/19 History [Fluticasone-Salmeterol 113-14] Omeprazole 40 mg PO BID 03/16/19 08/07/19 History Loperamide [Imodium] 2 mg PO DAILY PRN 03/22/19 08/07/19 History Gabapentin [Neurontin] 300 mg PO TID #9 cap 04/02/19 08/07/19 Rx oxyCODONE-APAP 5-325MG [Percocet 1 each PO Q8H PRN #6 tab 04/02/19 08/07/19 Rx 5-325 mg] Amiodarone [Cordarone] 100 mg PO DAILY 08/07/19 08/07/19 History Aspirin [Bowie Aspirin EC] 81 mg PO DAILY 08/07/19 08/07/19 History Baclofen [Lioresal] 20 mg PO TID PRN 08/07/19 08/07/19 History Furosemide [Lasix] 40 mg PO DAILY 08/07/19 08/07/19 History Meclizine [Antivert] 25 mg PO QID PRN 08/07/19 08/07/19 History Nitrofurantoin Monohyd/M-Cryst 100 mg PO BID 08/07/19 08/07/19 History [Macrobid] Nystatin 100,000 Unit/gm Powd 1 applic TOPICAL DAILY PRN 08/07/19 08/07/19 History [Mycostatin Powder] Potassium Chloride ER [K-Dur 20] 20 meq PO DAILY 08/07/19 08/07/19 History Sucralfate [Carafate] 1 gm PO QID 08/07/19 08/07/19 History Allergies Allergy/AdvReac Type Severity Reaction Status Date / Time Penicillins Allergy Swelling Verified 08/07/19 13:28 Physical Exam Vitals: Vital Signs Temp Pulse Pulse Resp BP BP BP 08/08/19 07:19 98.0 F 81 16 91/59 08/08/19 04:14 14 08/08/19 00:24 98.0 F 78 14 94/58 08/07/19 23:16 14 08/07/19 19:59 97.7 F 80 18 104/68 08/07/19 19:55 90 08/07/19 19:46 89 08/07/19 15:57 115/62 08/07/19 15:42 78/53 08/07/19 15:18 15 08/07/19 15:00 98.2 F 82 15 80/49 08/07/19 14:18 78 18 08/07/19 14:17 98.2 F 80 18 92/64 08/07/19 13:20 84 16 134/91 08/07/19 11:58 86 16 115/66 08/07/19 11:00 78 16 93/69 Pulse Ox 08/08/19 07:19 100 08/08/19 04:14 08/08/19 00:24 95 08/07/19 23:16 08/07/19 19:59 97 08/07/19 19:55 08/07/19 19:46 08/07/19 15:57 08/07/19 15:42 08/07/19 15:18 08/07/19 15:00 92 L 08/07/19 14:18 97 08/07/19 14:17 94 L 08/07/19 13:20 96 08/07/19 11:58 100 08/07/19 11:00 100 Intake and Output 08/07/19 08/08/19 08/08/19 22:59 06:59 14:59 Intake Total 222 Output Total 300 Balance 222 -300 Intake: Oral 222 Output: Urine 300 Other: Voiding Method Indwelling Catheter Indwelling Catheter Weight 58.513 kg Results CBC & Chem 7: 08/08/19 13:16 08/07/19 11:33 Labs: Abnormal Lab Results - Last 24 Hours (Table) 08/07/19 08/07/19 08/07/19 Range/Units 10:19 11:33 11:33 RBC 3.48 L (3.80-5.40) m/uL Hgb 10.6 L (11.4-16.0) gm/dL MCV 101.8 H (80.0-100.0) fL MCHC 29.8 L (31.0-37.0) g/dL Neutrophils # 8.0 H (1.3-7.7) k/uL ESR (0-20) mm/hr Sodium 134 L (137-145) mmol/L Chloride 97 L (98-107) mmol/L Carbon Dioxide 32 H (22-30) mmol/L Glucose 102 H (74-99) mg/dL Calcium 8.3 L (8.4-10.2) mg/dL Total Protein 5.9 L (6.3-8.2) g/dL Albumin 2.7 L (3.5-5.0) g/dL Urine Appearance Cloudy H (Clear) Urine Nitrite Positive H (Negative) Ur Leukocyte Esterase Large H (Negative) Urine WBC 51 H (0-5) /hpf Urine WBC Clumps Few H (None) /hpf Urine Bacteria Many H (None) /hpf Urine Mucus Rare H (None) /hpf Ur Oxycodone Screen Detected H (NotDetected) Ur Barbiturates Screen Detected H (NotDetected) U Benzodiazepines Scrn Detected H (NotDetected) 08/07/19 Range/Units 21:09 RBC (3.80-5.40) m/uL Hgb (11.4-16.0) gm/dL MCV (80.0-100.0) fL MCHC (31.0-37.0) g/dL Neutrophils # (1.3-7.7) k/uL ESR 36 H (0-20) mm/hr Sodium (137-145) mmol/L Chloride (98-107) mmol/L Carbon Dioxide (22-30) mmol/L Glucose (74-99) mg/dL Calcium (8.4-10.2) mg/dL Total Protein (6.3-8.2) g/dL Albumin (3.5-5.0) g/dL Urine Appearance (Clear) Urine Nitrite (Negative) Ur Leukocyte Esterase (Negative) Urine WBC (0-5) /hpf Urine WBC Clumps (None) /hpf Urine Bacteria (None) /hpf Urine Mucus (None) /hpf Ur Oxycodone Screen (NotDetected) Ur Barbiturates Screen (NotDetected) U Benzodiazepines Scrn (NotDetected) Microbiology - Last 24 Hours (Table) 08/07/19 10:19 Urine Culture - Preliminary Urine,Voided Thrombosis Risk Factor Assmnt - Choose All That Apply Each Factor Represents 1 point: Abnormal pulmonary function (COPD) Each Risk Factor Represents 2 Points: Age 61-74 years Thrombosis Risk Factor Assessment Total Risk Factor Score: 3 Thrombosis Risk Factor Assessment Level: Moderate Risk
[2019-08-09] MEDS: SODIUM CHLORIDE 0.9% 1,000 ML IV SCH ×3 (01:52→21:54)
[2019-08-09 03:11] LABS: Basophils % (A) 0 %; Eosinophils # (A) 0.1 k/uL (0-0.7); Eosinophils % (A) 1 %; HCT 26.3 % (34.0-46.0); HGB 7.6 gm/dL (11.4-16.0); Hypochromasia Marked; Lymphocytes # (A) 2.4 k/uL (1.0-4.8); Lymphocytes % (A) 25 %; MCH 30.5 pg (25.0-35.0); MCHC 28.8 g/dL (31.0-37.0); MCV 105.7 fL (80.0-100.0); Macrocytosis Moderate; Mean Platelet Volume 7.3; Monocytes # (A) 0.5 k/uL (0-1.0); Monocytes % (A) 5 %; Neutrophils # (A) 6.3 k/uL (1.3-7.7); Neutrophils % (A) 67 %; Platelet Count 299 k/uL (150-450); RBC 2.49 m/uL (3.80-5.40); RDW 15.1 % (11.5-15.5); WBC 9.4 k/uL (3.8-10.6)
[2019-08-09] MEDS: LEVOTHYROXINE 100 MCG TAB PO SCH (06:16)
[2019-08-09] MEDS: CYANOCOBALAMIN 500 MCG TAB PO SCH (07:45)
[2019-08-09] MEDS: FERROUS SULFATE 325 MG TAB PO SCH ×2 (07:45→21:50)
[2019-08-09] MEDS: ATORVASTATIN 40 MG TAB PO SCH (07:46)
[2019-08-09] MEDS: guaiFENesin 600 MG TABLET.ER PO SCH ×2 (07:46→21:50)
[2019-08-09] MEDS: FOLIC ACID 1 MG TAB PO SCH (07:46)
[2019-08-09] MEDS: GABAPENTIN 300 MG CAP PO SCH ×3 (07:46→21:50)
[2019-08-09] MEDS: AMIODARONE 200 MG TAB PO SCH (07:46)
[2019-08-09] MEDS: oxyCODONE-APAP 5-325MG 1 EACH TAB PO PRN ×3 (07:47→21:50)
[2019-08-09] MEDS: THIAMINE 100 MG TAB PO SCH (07:47)
[2019-08-09] MEDS: ASPIRIN 81 MG PO SCH (07:47)
[2019-08-09] MEDS: CHOLECALCIFEROL 1,000 UNIT TAB PO SCH (07:47)
[2019-08-09] MEDS: ARIPiprazole 10 MG TAB PO SCH (07:48)
[2019-08-09] MEDS: PRIMIDONE 50 MG TAB PO SCH ×2 (07:59→21:50)
[2019-08-09] MEDS: PANTOPRAZOLE 40 MG TABLET PO SCH ×2 (07:59→16:13)
[2019-08-09] MEDS: POTASSIUM CHLORIDE ER 20 MEQ TAB.ER PO SCH (07:59)
[2019-08-09] MEDS: IPRATROPIUM-ALBUTEROL 3 ML NEB INHALATION SCH ×4 (08:24→20:03)
[2019-08-09] MEDS: SYMBICORT 160-4.5 MCG INHALER INHALATION SCH ×2 (08:24→20:03)
--- NOTE | 2019-08-09 11:15 | CDI ---
Documentation Clarification Form Date: 08/09/2019 10:57:19 AM From: Sandy Camacho RN CCDS Admit Date: 08/07/2019 12:31:00 PM Patient Name: Akiko Grimaldo Visit Number: [id number] Discharge Date: ATTENTION: The Clinical Documentation Specialists (CDI) and [facility] Coding Staff appreciate your assistance in clarifying documentation. Please respond to the clarification below the line at the bottom and electronically sign. The CDI & [facility] Coding staff will review the response and follow-up if needed. Please note: Queries are made part of the Legal Health Record. If you have any questions, please contact the author of this message via ITS. Dr. Adolfo Bay UTI was documented in the ED note 08/06 History/Risk Factors: 63-year-old female presents to the ED with generalized weakness and her legs are very weak. Medical history Wheelchair bound; Patterson catheter placed one week ago due to edema in legs. Clinical Indicators: Per Neurology consult 08/07 The patient reports that she had increasing weakness over the past weeks after a Patterson was placed due to edema in her extremities 08/06 Vital Signs: B/P 113/73, HR 92, T 98.2F, RR 18, Spo2 100% room air 08/06 WBC: 9 08/06 Urinalysis: nitrate positive, Leukocyte esterase Large, Wbc 51, Urine Culture: Morganella morganii, Citrobacter freundii Treatment Antibiotics 08/07 [place] ivpb q 24 Hrs Please document the condition that these clinical indicators signify, whether Present on Admission, and cause if known: UTI - due to catheter poa -Specify organism, if known UTI not due to catheter poa -Specify organism, if known Contaminated specimen Other, please specify Unable to determine (Last Revision: January 2017) Acute UTI from cystitis due to Patterson catheter MTDD
--- NOTE | 2019-08-09 12:42 | CONS ---
CONSULTATION This is a 63-year-old pleasant female. Patient came to the hospital with a history of feeling weakness in both lower extremities. The patient walked with a walker and some time with a wheelchair. The patient was under care of Dr. Vera. Patient had a venous ultrasound done which showed DVT of the femoral vein, bilateral. No history of shortness of breath. No history of leg pain. PAST MEDICAL HISTORY: Includes history of coronary artery disease, history of angina, history of heart failure, history of COPD, history of fibromyalgia, hyperlipidemia, hypertension, myocardial infarction in the past, history of osteoarthritis. SURGICAL HISTORY: Past left hip fracture with surgery. History of abdominal surgery for ulcer, history of chronic anemia, chronic UTI. PHYSICAL EXAMINATION: Patient was seen in her room. VITAL SIGNS: Stable. NECK: Supple. trachea central. CHEST: Clear. Femoral pulses are palpable, dorsal pedis is palpable. The patient has no vascular compromise. Patient is on heparin anticoagulation Plan is bilateral EMILY hose. Continue with anticoagulation when patient discharged. Will follow in my office in 2 weeks. MMODL / IJN: [id number] /
[2019-08-09] MEDS: SUCRALFATE 1 GM TAB PO SCH ×4 (13:00→21:50)
[2019-08-09] MEDS: ISOSORBIDE MONONITRATE ER 30 MG TAB.ER.24H PO SCH (13:00)
--- NOTE | 2019-08-09 17:18 | CONS ---
CONSULTATION DATE OF SERVICE: 08/09/2019 REASON FOR CONSULTATION: Anemia and dark colored stools. HISTORY OF PRESENT ILLNESS: The patient is a 63-year-old pleasant white female who was admitted to the hospital because of increasing weakness, especially in both lower extremities. She also has a nonhealing ulcer on the right heel. Reason GI was consulted is for evaluation of anemia and intermittent dark colored stool. The patient had multiple hospitalizations over the last 6 months. 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 She was seen by Dr. Dominique as well as Dr. Egan in the recent past and she was advised to have an FNA of the gastric mass for definitive diagnosis. But it appears the patient did not have this done after her last hospitalization in March of 2019. In any event, she was admitted to the hospital because of lower extremity swelling and was complaining of black tarry stools for the last 1 week duration. She denies any abdominal pain. She reports no nausea, vomiting, no rectal bleeding. Denies any recent NSAID use. She did have an upper endoscopy as well as EUS sometime in February of 2019 at [facility]. None of the records are available at the time of this dictation. PAST MEDICAL HISTORY: Coronary artery disease, congestive heart failure, COPD, fibromyalgia, gastroesophageal reflux disease, gastric ulceration, hyperlipidemia, hypertension, coronary artery disease status post TN and degenerative joint disease. PAST SURGICAL HISTORY: Cardiac cath, appendectomy, ICD implantation, cardioversion, EUS and EGD sometime late last year, colonoscopy with polypectomies. MEDICATIONS AT HOME: Include Mysoline, folic acid, Ventolin, thiamine, Abilify, Lioresal, vitamin D3, iron, levothyroxine, Lipitor, albuterol, Cordarone, Imodium, Xanax, Tylenol, Neurontin, fluticasone, Percocet. ALLERGIES: PENICILLIN. SOCIAL HISTORY: No smoking or alcohol use. FAMILY HISTORY: Unremarkable. REVIEW OF SYSTEMS: CARDIOPULMONARY: No chest pain. No shortness of breath. No dysuria, hematuria. MUSCULOSKELETAL: Chronic back pain. NEUROLOGY: Unremarkable. PSYCHIATRIC: Unremarkable. ENT/VISION: Unremarkable. CONSTITUTIONAL. No weight loss, no fever, chills, night sweats. PHYSICAL EXAMINATION: She appears comfortable, in no apparent distress. VITAL SIGNS: Stable. Blood pressure is 90/58, pulse is 81, temperature 97.6. HEENT: Examination unremarkable. Conjunctivae are pink. Sclerae nonicteric. Oral cavity no lesions. NECK: No JVD or lymph node enlargement. CHEST: Chest to auscultation. HEART: Regular rate and rhythm. ABDOMEN: Soft. Bowel sounds are positive. No organomegaly. EXTREMITIES: No pedal edema. SKIN: No rashes. NEURO: She is alert and oriented x3. No focal deficits. LABS: At the time of admission to the hospital, hemoglobin 10.6, now 7.6, WBC 9, platelets normal. Stool occult blood was positive. PT is 49.1. COVID-19 is negative. IMPRESSION: 1. Anemia, hemoglobin of 7.6 g/dL. At the time of admission to the hospital was 10 g/dL. Clinically, the patient has been having dark colored stools for the last several weeks' duration. She did have an EGD and EUS done sometime in February of 2019 at [facility] and according to the patient was noted to have a large gastric mass, possibly a spindle cell tumor and was evaluated by Dr. Dominique in the past. She was also noted to have small gastric ulcers. Her baseline hemoglobin has been in the range of 8 and 9 g/dL. 2. Bilateral lower extremity DVT on IV heparin. 3. Intraabdominal gastric mass which was worked up in the past. Sees Dr. Dominique on an outpatient basis. 4. History of diabetes mellitus. 5. Hypertension and hyperlipidemia. RECOMMENDATIONS: 1. I had a length discussion with the patient regarding anemia and Hemoccult-positive stool as well as intermittent dark colored stool. Recommended an upper endoscopy. Patient refuses to have any endoscopy intervention at the present time. Hence, I recommended continue with Protonix 40 mg twice daily. Monitor CBC on a daily basis and if she has any further episodes of bleeding will consider endoscopic intervention. Patient refuses to have any procedures done at this point. 2. Repeat CBC in the morning. Will follow with you closely. Thank you for this consultation. MMJUDYL / CESILIA: [id number] /
[2019-08-09] MEDS: HEPARIN SOD,PORK IN 0.45% NACL 25,000 UNIT in 0.45% NACL 1 250ML.BAG IV SCH (17:48)
--- NOTE | 2019-08-09 18:08 | P.PN ---
Progress Note - Text Progress Note Date: 08/09/19 Chief Complaint: Lower extremity weakness history of presenting complaint: This is a 63-year-old patient who follows with visiting physicians Dr. Vera.. Normally uses a wheelchair or a walker to get about. Chronic stable medical conditions include, coronary artery disease, COPD in an ex-smoker, chronic fibromyalgia, GERD, hyperlipidemia, essential hypertension, osteoarthritis, hypothyroid, chronic multiple sclerosis, peripheral neuropathy lower extremity, chronic urinary incontinence. Patient also was worked up at [facility] for a gastric greater curvature mass which eventually showed up to be normal smoked muscle cells. Patient now presents with increasing weakness in both lower extremity. No pain. No change in bowel or urine. Patient normally uses a walker and a wheelchair. No fever no chills. No back pain. Patient for a week has now had a [place] catheter. Appetite is fair. Neurology was consulted. This morning Doppler ultrasound ordered. Her weakness on lower extremity this morning is resolved. Admitted with-bilateral lower extremity DVT. Started and IV heparin. Today-noted to have dark stools. Patient states she's had intermittent dark stools for a while. GI was consulted. So was vascular surgery. Review of systems: Was done for constitutional, cardiovascular, GI, pulmonary. relevant finding as above Active Medications Acetaminophen (Tylenol Tab) 650 mg PO Q6HR PRN PRN Reason: Mild Pain or Fever > 100.5 Albuterol Sulfate (Ventolin Nebulized) 2.5 mg INHALATION RT-Q6H PRN PRN Reason: Shortness Of Breath Albuterol/Ipratropium (Duoneb 0.5 Mg-3 Mg/3 Ml Soln) 3 ml INHALATION RT-QID [facility] Last Admin: 08/09/19 15:47 Dose: 3 ml Documented by: Amiodarone HCl (Cordarone) 200 mg PO DAILY [facility] Last Admin: 08/09/19 07:46 Dose: 200 mg Documented by: Aripiprazole (Abilify) 10 mg PO DAILY [facility] Last Admin: 08/09/19 07:48 Dose: 10 mg Documented by: Aspirin (Aspirin) 81 mg PO DAILY [facility] Last Admin: 08/09/19 07:47 Dose: 81 mg Documented by: Atorvastatin Calcium (Lipitor) 40 mg PO DAILY [facility] Last Admin: 08/09/19 07:46 Dose: 40 mg Documented by: Baclofen (Lioresal) 20 mg PO TID PRN PRN Reason: Pain Budesonide/Formoterol Fumarate (Symbicort 160-4.5 Mcg Inhaler) 2 puff INHAL ATION RT-BID [facility] Last Admin: 08/09/19 08:24 Dose: Not Given Documented by: Cholecalciferol (Vitamin D3 (25 Mcg = 1000 Iu)) 2,000 unit PO DAILY [facility] Last Admin: 08/09/19 07:47 Dose: 2,000 unit Documented by: Cyanocobalamin (Vitamin B-12) 1,000 mcg PO DAILY [facility] Last Admin: 08/09/19 07:45 Dose: 1,000 mcg Documented by: Ferrous Sulfate (Feosol) 325 mg PO BID [facility] Last Admin: 08/09/19 07:45 Dose: 325 mg Documented by: Folic Acid (Folic Acid) 1 mg PO DAILY [facility] Last Admin: 08/09/19 07:46 Dose: 1 mg Documented by: Gabapentin (Neurontin) 300 mg PO TID [facility] Last Admin: 08/09/19 16:13 Dose: 300 mg Documented by: Guaifenesin (Mucinex) 1,200 mg PO Q12HR [facility] Last Admin: 08/09/19 07:46 Dose: 1,200 mg Documented by: Heparin Sodium (Porcine) (Heparin) 0 unit IV PER PROTOCOL PRN; Protocol PRN Reason: Low PTT Sodium Chloride (Saline 0.9%) 1,000 mls @ 80 mls/hr IV .[id number] [facility] Last Admin: 08/09/19 16:14 Dose: 80 mls/hr Documented by: Ceftriaxone Sodium 1 gm/ (Sodium Chloride) 50 mls @ 100 mls/hr IVPB Q24HR [facility] Last Admin: 08/09/19 07:48 Dose: 100 mls/hr Documented by: Heparin Sodium/Sodium Chloride (25,000 unit/ Sodium Chloride) 250 mls @ 10.532 mls/hr IV .[id number] [facility]; Protocol Last Admin: 08/09/19 17:48 Dose: 13 units/kg/hr, 7.607 mls/hr Documented by: Isosorbide Mononitrate (Imdur) 30 mg PO DAILY [facility] Last Admin: 08/09/19 13:00 Dose: Not Given Documented by: Levothyroxine Sodium (Synthroid) 100 mcg PO DAILY@0630 [facility] Last Admin: 08/09/19 06:16 Dose: 100 mcg Documented by: Loperamide HCl (Imodium) 2 mg PO DAILY PRN PRN Reason: Diarrhea Meclizine HCl (Antivert) 25 mg PO QID PRN PRN Reason: Vertigo Naloxone HCl (Narcan) 0.2 mg IV Q2M PRN PRN Reason: Opioid Reversal Nystatin (Mycostatin Powder) 1 applic TOPICAL DAILY PRN PRN Reason: GROIN Oxycodone/Acetaminophen (Percocet 5-325) 1 each PO Q8H PRN PRN Reason: Pain Last Admin: 08/09/19 16:13 Dose: 1 each Documented by: Pantoprazole Sodium (Protonix) 40 mg PO AC-BID [facility] Last Admin: 08/09/19 16:13 Dose: 40 mg Documented by: Potassium Chloride (K-Dur 20) 20 meq PO DAILY [facility] Last Admin: 08/09/19 07:59 Dose: 20 meq Documented by: Primidone (Mysoline) 50 mg PO BID [facility] Last Admin: 08/09/19 07:59 Dose: 50 mg Documented by: Sucralfate (Carafate) 1 gm PO ACHS [facility] Last Admin: 08/09/19 17:53 Dose: Not Given Documented by: Thiamine HCl (Vitamin B-1) 100 mg PO DAILY [facility] Last Admin: 08/09/19 07:47 Dose: 100 mg Documented by: Physical examination: VITAL SIGNS: 98.4, 69, 16, 102/66, 100% on room air GENERAL: Propped up in bed, awake EYES: Pupils equal. Conjunctiva pale HEENT: External appearance of nose and ears normal, oral cavity grossly normal. NECK: JVD not raised; masses not palpable. HEART: First and second heart sounds are normal; mild edema. LUNGS: Respiratory rate increased, decreased breath sounds. ABDOMEN: Soft, no tenderness, no guarding or rigidity, liver spleen not palpable, no masses palpable. PSYCH: Alert and oriented x3; mood and affect normal. Investigations: White count 9.4 hemoglobin 7.6 stool of occult blood-positive Previous testing: hemoglobin 10.6 platelets 375 progression 4.4 creatinine 0.84 Urine drug GEN positive for oxycodone, barbiturates, benzodiazepines Serum alcohol less than 10, coronavirus PCR-not detected EKG tracing personally reviewed by me-normal sinus rhythm with Q waves in the inferior leads, PVC Chest x-ray film personally reviewed by me-possible some chronic changes Doppler ultrasound-significant right-sided acute DVT lower extremity with larger lower extremity left-sided acute DVT Assessment: -Acute on chronic GI bleed in a patient with known gastric ulcer disease. -Acute blood loss anemia from GI bleed, patient also on IV heparin -Acute bilateral lower extremity DVT with greater than the left leg compared to the right, and a patient with limited activity -Gastric ulcer disease -Ywoqd-lozvsefxl-auavxxv mass, workup done at [facility].-biopsy showing smoothl muscle mass, -Solitary gallstone, asymptomatic -Coronary artery disease -COPD in an ex-smoker -Chronic fibromyalgia -GERD -Hyperlipidemia -Essential hypertension -Primary osteoarthritis -Hypothyroid -Chronic multiple sclerosis -Peripheral neuropathy both the lower extremity -Chronic urinary incontinence -Chronic gait dysfunction uses a walker/wheelchair plan: -Early today looked at patient's stool. Very dark. GI was consulted. Seen by Dr. Eliza Solis. I spoke to Dr. Eliza Solis later in the evening. Patient refuses any EGD. I spoke oriented to the patient. She is acceptable to proceed with a [place] filter. Spoke to Dr. Ulloa from [facility]. We'll proceed with the same tomorrow. Total time spent today was about 50 minutes with over 25 minutes of discussion.
[2019-08-09 19:49] LABS: HGB 7.9 gm/dL (11.4-16.0); Hypochromasia Marked; MCHC 29.4 g/dL (31.0-37.0); MCV 102.3 fL (80.0-100.0); Macrocytosis Slight; Mean Platelet Volume 8.2; Platelet Count 228 k/uL (150-450); RBC 2.64 m/uL (3.80-5.40); WBC 9.1 k/uL (3.8-10.6)
--- NOTE | 2019-08-09 20:54 | PN ---
PROGRESS NOTE This patient came with a history of bilateral DVT involving both the femoral vein and popliteal vein. Patient has a history of gastric ulcer. Patient also has a history of blood loss due to GI bleed. The patient was on IV heparin. I was called in for placement of a filter. Discussed in detail bleeding, infection, thrombosis, migration, and we will proceed tomorrow with placement of the filter. MMODL / IJN: [id number] /
[2019-08-09] MEDS: CIPROFLOXACIN HCL 250 MG TAB PO SCH (21:50)
[2019-08-10] MEDS: ALPRAZolam 0.25 MG TAB PO PRN ×2 (00:11→15:29)
[2019-08-10] MEDS: LEVOTHYROXINE 100 MCG TAB PO SCH (05:58)
[2019-08-10] MEDS: IPRATROPIUM-ALBUTEROL 3 ML NEB INHALATION SCH ×4 (07:12→19:47)
[2019-08-10] MEDS: SYMBICORT 160-4.5 MCG INHALER INHALATION SCH ×3 (07:12→19:49)
[2019-08-10 08:07] LABS: Basophils % (A) 0 %; Eosinophils # (A) 0.2 k/uL (0-0.7); Eosinophils % (A) 4 %; HCT 23.3 % (34.0-46.0); Hypochromasia Marked; Lymphocytes # (A) 1.2 k/uL (1.0-4.8); Lymphocytes % (A) 27 %; MCH 31.3 pg (25.0-35.0); MCHC 30.1 g/dL (31.0-37.0); MCV 103.9 fL (80.0-100.0); Macrocytosis Moderate; Mean Platelet Volume 7.4; Monocytes # (A) 0.2 k/uL (0-1.0); Monocytes % (A) 5 %; Neutrophils # (A) 2.8 k/uL (1.3-7.7); Neutrophils % (A) 63 %; Platelet Count 235 k/uL (150-450); RBC 2.24 m/uL (3.80-5.40); WBC 4.5 k/uL (3.8-10.6)
[2019-08-10] MEDS: PRIMIDONE 50 MG TAB PO SCH ×2 (08:56→20:23)
[2019-08-10] MEDS: SUCRALFATE 1 GM TAB PO SCH ×4 (08:56→20:23)
[2019-08-10] MEDS: ISOSORBIDE MONONITRATE ER 30 MG TAB.ER.24H PO SCH (08:56)
[2019-08-10] MEDS: ATORVASTATIN 40 MG TAB PO SCH (08:56)
[2019-08-10] MEDS: AMIODARONE 200 MG TAB PO SCH (08:57)
[2019-08-10] MEDS: ARIPiprazole 10 MG TAB PO SCH (08:57)
[2019-08-10] MEDS: PANTOPRAZOLE 40 MG TABLET PO SCH ×2 (08:57→16:55)
[2019-08-10] MEDS ORDERED: IV FLUID CONTINUATION 900 ML IV ONE (09:19)
[2019-08-10] MEDS ORDERED: MIDAZOLAM 2 MG/2 ML VIAL IV ONE (09:46)
[2019-08-10] MEDS ORDERED: LIDOCAINE 1% INJ 10MG/ML (20 ML MDV) SQ ONE (09:47)
[2019-08-10] MEDS ORDERED: IOPAMIDOL-300 100ML BTL INJ ONE (10:20)
--- NOTE | 2019-08-10 10:48 | PN ---
PROGRESS NOTE DATE OF DICTATION: August 10, 2019. The patient is a 63-year-old pleasant white female admitted to the hospital with bilateral lower extremity DVTs and presently on IV heparin. She also has been complaining of black tarry stools. Her hemoglobin is 7.5 g/dL. Dr. Dinh has been consulted and is undergoing [place] filter placement today because of ongoing GI bleed. The patient continues to refuse an EGD at this time. PHYSICAL EXAMINATION: Appears comfortable. VITAL SIGNS: Stable. Blood pressure 84/51, pulse is 78, temperature 97.6. HEENT examination unremarkable. Conjunctivae pink. Sclerae anicteric. Oral cavity no lesions. NECK: No JVD or lymph node enlargement. CHEST: Clear to auscultation. HEART: Regular rate and rhythm. ABDOMEN: Soft. Bowel sounds are positive. No organomegaly. EXTREMITIES: No pedal edema. NEUROLOGIC: Alert and oriented x3. No focal deficits. LABS: From today WBC is 4.5, hemoglobin 7, platelets normal. IMPRESSION: 1. Bilateral lower extremity deep vein thrombosis on IV heparin. The patient is scheduled for a [place] filter placement by Dr. Dinh today. 2. History of gastric spindle-cell tumor diagnosed 6 months ago at [facility] on an upper endoscopy as well as EUS. The patient was evaluated by Dr. Dominique and Dr. Egan at that time. She presents to the hospital with black tarry stools and hemoglobin of 7. Possibly secondary to recurrent peptic ulcer disease. Presently on Protonix 40 mg daily. RECOMMENDATIONS: 1. Continue with Protonix 40 mg twice daily. 2. CBC on a daily basis and transfuse if the hemoglobin is less than 7. 3. I had a lengthy discussion with the patient regarding proceeding with an upper endoscopy, but she continues to refuse to have it done during this hospitalization. 4. I agree with [place] filter placement for now. 5. We will follow with you closely. Thank you for this consultation. MMODL / IJN: [id number] /
--- NOTE | 2019-08-10 11:45 | PCN ---
PROCEDURE NOTE PREOP DIAGNOSES: Bilateral femoral vein deep vein thrombosis with gastrointestinal bleed. PROCEDURE: 1. Inferior vena cavogram. 2. Placement of a [place] infrarenal filter. SEDATION: Time is 28 minutes. DESCRIPTION OF PROCEDURE: This patient was brought to the laborer demolition. Right neck and chest was prepped and drapes applied in usual sterile manner. This patient has bilateral femoral DVT and GI bleed. After that IV sedation and 1% lidocaine was introduced into the neck area. Micropuncture introduced ultrasound-guided right jugular vein and a 4-Canadian dilator advanced on the top of the guidewire. Then we passed a guidewire which was parked at the inferior vena cava and then 4-Canadian sheath advanced on top of the guidewire. Then, pigtail catheter was advanced on top of the guidewire. The pigtail catheter workup kept above both the iliac veins and inferior vena cavogram was performed. Both renals were visualized. The right and left iliac vein were visualized. No clot was seen in the inferior vena cava. After that, we placed a long sheath on the top of the guidewire, which were parked below the renal vein and then the [place] filter was introduced through the sheath which was deployed below the renal vein and completion vena cava cavogram was performed. Vena cava filter was below the renal vein and both iliac veins visualized. Sheath was removed. Pressure was held. The patient tolerated the procedure well. MMODL / IJN: [id number] /
[2019-08-10] MEDS: oxyCODONE-APAP 5-325MG 1 EACH TAB PO PRN ×2 (12:27→20:23)
[2019-08-10] MEDS: GABAPENTIN 300 MG CAP PO SCH ×3 (12:28→20:23)
[2019-08-10] MEDS: ASPIRIN 81 MG PO SCH (12:28)
[2019-08-10] MEDS: THIAMINE 100 MG TAB PO SCH (12:28)
[2019-08-10] MEDS: POTASSIUM CHLORIDE ER 20 MEQ TAB.ER PO SCH (12:28)
[2019-08-10] MEDS: CIPROFLOXACIN HCL 250 MG TAB PO SCH ×2 (12:28→20:23)
[2019-08-10] MEDS: guaiFENesin 600 MG TABLET.ER PO SCH ×2 (12:28→20:23)
[2019-08-10] MEDS: CYANOCOBALAMIN 500 MCG TAB PO SCH (12:28)
[2019-08-10] MEDS: FOLIC ACID 1 MG TAB PO SCH (12:28)
[2019-08-10] MEDS: CHOLECALCIFEROL 1,000 UNIT TAB PO SCH (12:28)
[2019-08-10] MEDS: FERROUS SULFATE 325 MG TAB PO SCH ×2 (12:28→20:23)
--- NOTE | 2019-08-10 17:13 | P.PN ---
Progress Note - Text Progress Note Date: 08/10/19 Chief Complaint: Lower extremity weakness history of presenting complaint: This is a 63-year-old patient who follows with visiting physicians Dr. Vera.. Normally uses a wheelchair or a walker to get about. Chronic stable medical conditions include, coronary artery disease, COPD in an ex-smoker, chronic fibromyalgia, GERD, hyperlipidemia, essential hypertension, osteoarthritis, hypothyroid, chronic multiple sclerosis, peripheral neuropathy lower extremity, chronic urinary incontinence. Patient also was worked up at [facility] for a gastric greater curvature mass which eventually showed up to be normal smoked muscle cells. Patient now presents with increasing weakness in both lower extremity. No pain. No change in bowel or urine. Patient normally uses a walker and a wheelchair. No fever no chills. No back pain. Patient for a week has now had a Patterson catheter. Appetite is fair. Neurology was consulted. This morning Doppler ultrasound ordered. Her weakness on lower extremity this morning is resolved. Admitted with-bilateral lower extremity DVT. Started and IV heparin. Patient to resume been having intermittent dark stools for some time. Dark stools was noted on the floor. IV heparin was discussed. GI was consulted. Patient decli ac EGD. Consented for [place] filter. Today-quality today [place] filter was placed. Postprocedure laying in bed. A bit tired. No new issues. Breathing is stable. Discussed at length with Dr. Ulloa who should discussed the pictures. Discussed with the patient. Review of systems: Was done for constitutional, cardiovascular, GI, pulmonary. relevant finding as above Active Medications Acetaminophen (Tylenol Tab) 650 mg PO Q6HR PRN PRN Reason: Mild Pain or Fever > 100.5 Albuterol Sulfate (Ventolin Nebulized) 2.5 mg INHALATION RT-Q6H PRN PRN Reason: Shortness Of Breath Albuterol/Ipratropium (Duoneb 0.5 Mg-3 Mg/3 Ml Soln) 3 ml INHALATION RT-QID [facility] Last Admin: 08/10/19 15:34 Dose: 3 ml Documented by: Alprazolam (Xanax) 0.25 mg PO TID PRN PRN Reason: Anxiety Last Admin: 08/10/19 15:29 Dose: 0.25 mg Documented by: Amiodarone HCl (Cordarone) 200 mg PO DAILY [facility] Last Admin: 08/10/19 08:57 Dose: 200 mg Documented by: Aripiprazole (Abilify) 10 mg PO DAILY [facility] Last Admin: 08/10/19 08:57 Dose: 10 mg Documented by: Aspirin (Aspirin) 81 mg PO DAILY [facility] Last Admin: 08/10/19 12:28 Dose: 81 mg Documented by: Atorvastatin Calcium (Lipitor) 40 mg PO DAILY [facility] Last Admin: 08/10/19 08:56 Dose: 40 mg Documented by: Baclofen (Lioresal) 20 mg PO TID PRN PRN Reason: Pain Budesonide/Formoterol Fumarate (Symbicort 160-4.5 Mcg Inhaler) 2 puff INHALATION RT-BID [facility] Last Admin: 08/10/19 07:12 Dose: Not Given Documented by: Cholecalciferol (Vitamin D3 (25 Mcg = 1000 Iu)) 2,000 unit PO DAILY [facility] Last Admin: 08/10/19 12:28 Dose: 2,000 unit Documented by: Ciprofloxacin (Cipro) 250 mg PO BID [facility] Last Admin: 08/10/19 12:28 Dose: 250 mg Documented by: Cyanocobalamin (Vitamin B-12) 1,000 mcg PO DAILY [facility] Last Admin: 08/10/19 12:28 Dose: 1,000 mcg Documented by: Ferrous Sulfate (Feosol) 325 mg PO BID [facility] Last Admin: 08/10/19 12:28 Dose: 325 mg Documented by: Folic Acid (Folic Acid) 1 mg PO DAILY [facility] Last Admin: 08/10/19 12:28 Dose: 1 mg Documented by: Gabapentin (Neurontin) 300 mg PO TID [facility] Last Admin: 08/10/19 15:29 Dose: 300 mg Documented by: Guaifenesin (Mucinex) 1,200 mg PO Q12HR [facility] Last Admin: 08/10/19 12:28 Dose: 1,200 mg Documented by: Sodium Chloride (Saline 0.9%) 1,000 mls @ 80 mls/hr IV .[id number] [facility] Last Admin: 08/09/19 21:54 Dose: 80 mls/hr Documented by: Ceftriaxone Sodium 1 gm/ (Sodium Chloride) 50 mls @ 100 mls/hr IVPB Q24HR [facility] Last Admin: 08/10/19 08:57 Dose: 100 mls/hr Documented by: Isosorbide Mononitrate (Imdur) 30 mg PO DAILY [facility] Last Admin: 08/10/19 08:56 Dose: 30 mg Documented by: Levothyroxine Sodium (Synthroid) 100 mcg PO DAILY@0630 [facility] Last Admin: 08/10/19 05:58 Dose: Not Given Documented by: Loperamide HCl (Imodium) 2 mg PO DAILY PRN PRN Reason: Diarrhea Meclizine HCl (Antivert) 25 mg PO QID PRN PRN Reason: Vertigo Naloxone HCl (Narcan) 0.2 mg IV Q2M PRN PRN Reason: Opioid Reversal Nystatin (Mycostatin Powder) 1 applic TOPICAL DAILY PRN PRN Reason: GROIN Oxycodone/Acetaminophen (Percocet 5-325) 1 each PO Q8H PRN PRN Reason: Pain Last Admin: 08/10/19 12:27 Dose: 1 each Documented by: Pantoprazole Sodium (Protonix) 40 mg PO AC-BID [facility] Last Admin: 08/10/19 08:57 Dose: 40 mg Documented by: Potassium Chloride (K-Dur 20) 20 meq PO DAILY [facility] Last Admin: 08/10/19 12:28 Dose: 20 meq Documented by: Primidone (Mysoline) 50 mg PO BID [facility] Last Admin: 08/10/19 08:56 Dose: 50 mg Documented by: Sucralfate (Carafate) 1 gm PO ACHS [facility] Last Admin: 08/10/19 12:28 Dose: 1 gm Documented by: Thiamine HCl (Vitamin B-1) 100 mg PO DAILY [facility] Last Admin: 08/10/19 12:28 Dose: 100 mg Documented by: Physical examination: VITAL SIGNS: 97.5, 78, 16, 87/59, 96% on room air GENERAL: Laying in bed, comfortable EYES: Pupils equal. Conjunctiva pale HEENT: External appearance of nose and ears normal, oral cavity grossly normal. NECK: JVD not raised; masses not palpable. HEART: First and second heart sounds are normal; mild edema. LUNGS: Respiratory rate increased, decreased breath sounds. ABDOMEN: Soft, no tenderness, no guarding or rigidity, liver spleen not palpable, no masses palpable. PSYCH: Alert and oriented x3; mood and affect normal. Investigations: White count 4.5 hemoglobin 7 Previous testing: hemoglobin 10.6 platelets 375 progression 4.4 creatinine 0.84 Urine drug GEN positive for oxycodone, barbiturates, benzodiazepines Serum alcohol less than 10, coronavirus PCR-not detected EKG tracing personally reviewed by me-normal sinus rhythm with Q waves in the inferior leads, PVC Chest x-ray film personally reviewed by me-possible some chronic changes Doppler ultrasound-significant right-sided acute DVT lower extremity with larger lower extremity left-sided acute DVT Assessment: -Acute on chronic GI bleed in a patient with known gastric ulcer disease. -Acute blood loss anemia from GI bleed, patient also on IV heparin-which was discontinued. Symptomatic today with low blood pressure. -Acute bilateral lower extremity DVT with greater than the left leg compared to the right, and a patient with limited activity -Gastric ulcer disease -Ixixz-axtrmlltu-czozise mass, workup done at [facility].-biopsy showing smoothl muscle mass, -Solitary gallstone, asymptomatic -Coronary artery disease -COPD in an ex-smoker -Chronic fibromyalgia -GERD -Hyperlipidemia -Essential hypertension -Primary osteoarthritis -Hypothyroid -Chronic multiple sclerosis -Peripheral neuropathy both the lower extremity -Chronic urinary incontinence -Chronic gait dysfunction uses a walker/wheelchair plan: Status post [place] filter placement today. Blood pressures running low. Hemoglobin is low. We'll transfuse unit of blood.
[2019-08-10] MEDS: SODIUM CHLORIDE 0.9% 1,000 ML IV SCH ×2 (19:00→19:17)
[2019-08-11] MEDS: ALPRAZolam 0.25 MG TAB PO PRN ×3 (00:08→23:16)
[2019-08-11] MEDS: BACLOFEN 10 MG TAB PO PRN ×2 (00:08→20:35)
[2019-08-11] MEDS: SODIUM CHLORIDE 0.9% 1,000 ML IV SCH ×2 (05:37→06:11)
[2019-08-11] MEDS: LEVOTHYROXINE 100 MCG TAB PO SCH (05:40)
[2019-08-11 06:50] LABS: Anisocytosis Slight; Basophils % (A) 0 %; Eosinophils # (A) 0.3 k/uL (0-0.7); Eosinophils % (A) 4 %; HCT 28.7 % (34.0-46.0); HGB 8.8 gm/dL (11.4-16.0); Hypochromasia Marked; Lymphocytes # (A) 1.2 k/uL (1.0-4.8); Lymphocytes % (A) 18 %; MCHC 30.6 g/dL (31.0-37.0); MCV 101.4 fL (80.0-100.0); Macrocytosis Slight; Mean Platelet Volume 7.2; Monocytes # (A) 0.4 k/uL (0-1.0); Monocytes % (A) 6 %; Neutrophils # (A) 4.7 k/uL (1.3-7.7); Neutrophils % (A) 71 %; Platelet Count 233 k/uL (150-450); Poikilocytosis Slight; RBC 2.83 m/uL (3.80-5.40); RDW 16.4 % (11.5-15.5); WBC 6.6 k/uL (3.8-10.6)
[2019-08-11] MEDS: SYMBICORT 160-4.5 MCG INHALER INHALATION SCH ×3 (07:53→20:53)
[2019-08-11] MEDS: IPRATROPIUM-ALBUTEROL 3 ML NEB INHALATION SCH ×4 (07:53→20:50)
[2019-08-11] MEDS: PANTOPRAZOLE 40 MG TABLET PO SCH ×2 (08:43→17:01)
[2019-08-11] MEDS: FOLIC ACID 1 MG TAB PO SCH (08:43)
[2019-08-11] MEDS: PRIMIDONE 50 MG TAB PO SCH ×2 (08:43→20:36)
[2019-08-11] MEDS: FERROUS SULFATE 325 MG TAB PO SCH ×2 (08:43→20:36)
[2019-08-11] MEDS: guaiFENesin 600 MG TABLET.ER PO SCH ×2 (08:43→20:36)
[2019-08-11] MEDS: CIPROFLOXACIN HCL 250 MG TAB PO SCH ×2 (08:43→20:36)
[2019-08-11] MEDS: CYANOCOBALAMIN 500 MCG TAB PO SCH (08:43)
[2019-08-11] MEDS: GABAPENTIN 300 MG CAP PO SCH ×3 (08:44→20:36)
[2019-08-11] MEDS: THIAMINE 100 MG TAB PO SCH (08:44)
[2019-08-11] MEDS: AMIODARONE 200 MG TAB PO SCH (08:44)
[2019-08-11] MEDS: ARIPiprazole 10 MG TAB PO SCH (08:44)
[2019-08-11] MEDS: ATORVASTATIN 40 MG TAB PO SCH (08:44)
[2019-08-11] MEDS: ISOSORBIDE MONONITRATE ER 30 MG TAB.ER.24H PO SCH (08:44)
[2019-08-11] MEDS: SUCRALFATE 1 GM TAB PO SCH ×4 (08:44→20:35)
[2019-08-11] MEDS: CHOLECALCIFEROL 1,000 UNIT TAB PO SCH (08:44)
[2019-08-11] MEDS: POTASSIUM CHLORIDE ER 20 MEQ TAB.ER PO SCH (08:44)
--- NOTE | 2019-08-11 11:34 | PN ---
PROGRESS NOTE DATE OF SERVICE: 08/11/2019 The patient is a 63-year-old pleasant white female admitted to the hospital with GI bleed, bilateral lower extremity DVT. Underwent [place] filter placement by Dr. Dinh yesterday. She is doing better. She denies any symptoms. She had one black tarry stools yesterday. She reports no abdominal pain. No nausea, vomiting. She received 1 unit of blood transfusion yesterday and her hemoglobin today is 8.8. On regular diet, tolerating well. PHYSICAL EXAMINATION: VITAL SIGNS: Stable. Blood pressure is 91/55, pulse rate 83, temperature 98.9. HEENT: Unremarkable. Conjunctivae pink. Sclerae anicteric. Oral cavity, no lesions. NECK: No JVD or lymph node enlargement. CHEST: Clear to auscultation. HEART: Regular rate and rhythm. ABDOMEN: Soft. Bowel sounds are positive. No organomegaly. EXTREMITIES: No pedal edema. SKIN: No rashes. NEUROLOGIC: Alert and oriented x3. No focal deficits. LABS: From today hemoglobin 8.8, WBC 5.6, platelets normal. IMPRESSION: 1. Lower extremity deep venous thrombosis status post [place] filter placement by Dr. Dinh yesterday. Patient doing well. 2. Intermittent black tarry stools suggestive of upper gastrointestinal bleed. Patient with prior history of EGD revealing a large gastric spindle-cell tumor and gastric ulceration. The patient was recommended to have an upper endoscopy but she refuses at this time. Hemoglobin gradually decreased to 7 requiring a unit of blood transfusion yesterday. Today it is 8.8 g/dL. 3. History of hypertension. 4. Chronic myalgia. 5. Gastroesophageal reflux disease. RECOMMENDATION: 1. Continue current medications. 2. Once again discussed with the patient regarding the need for upper endoscopy to investigate her source of upper GI bleed but she continues to refuse the procedure. 3. At this time, monitor her CBC on a daily basis and will sign off. Please call if needed. Thank you for this consultation. MMODL / IJN: [id number] /
[2019-08-11] MEDS: oxyCODONE-APAP 5-325MG 1 EACH TAB PO PRN ×2 (15:21→23:16)
--- NOTE | 2019-08-11 20:08 | P.PN ---
Progress Note - Text Progress Note Date: 08/11/19 Chief Complaint: Lower extremity weakness history of presenting complaint: This is a 63-year-old patient who follows with visiting physicians Dr. Vera.. Normally uses a wheelchair or a walker to get about. Chronic stable medical conditions include, coronary artery disease, COPD in an ex-smoker, chronic fibromyalgia, GERD, hyperlipidemia, essential hypertension, osteoarthritis, hypothyroid, chronic multiple sclerosis, peripheral neuropathy lower extremity, chronic urinary incontinence. Patient also was worked up at [facility] for a gastric greater curvature mass which eventually showed up to be normal smoked muscle cells. Patient now presents with increasing weakness in both lower extremity. No pain. No change in bowel or urine. Patient normally uses a walker and a wheelchair. No fever no chills. No back pain. Patient for a week has now had a Patterson catheter. Appetite is fair. Neurology was consulted. This morning Doppler ultrasound ordered. Her weakness on lower extremity this morning is resolved. Admitted with-bilateral lower extremity DVT. Started and IV heparin. Patient to resume been having intermittent dark stools for some time. Dark stools was noted on the floor. IV heparin was discussed. GI was consulted. Patient decli ac EGD. [place] filter was placed on August 09. Today- comfortable. No new issues.. 13 diet. Review of systems: Was done for constitutional, cardiovascular, GI, pulmonary. relevant finding as above Active Medications Acetaminophen (Tylenol Tab) 650 mg PO Q6HR PRN PRN Reason: Mild Pain or Fever > 100.5 Albuterol Sulfate (Ventolin Nebulized) 2.5 mg INHALATION RT-Q6H PRN PRN Reason: Shortness Of Breath Albuterol/Ipratropium (Duoneb 0.5 Mg-3 Mg/3 Ml Soln) 3 ml INHALATION RT-QID [facility] Last Admin: 08/11/19 15:53 Dose: Not Given Documented by: Alprazolam (Xanax) 0.25 mg PO TID PRN PRN Reason: Anxiety Last Admin: 08/11/19 15:21 Dose: 0.25 mg Documented by: Amiodarone HCl (Cordarone) 200 mg PO DAILY [facility] Last Admin: 08/11/19 08:44 Dose: 200 mg Documented by: Aripiprazole (Abilify) 10 mg PO DAILY [facility] Last Admin: 08/11/19 08:44 Dose: 10 mg Documented by: Atorvastatin Calcium (Lipitor) 40 mg PO DAILY [facility] Last Admin: 08/11/19 08:44 Dose: 40 mg Documented by: Baclofen (Lioresal) 20 mg PO TID PRN PRN Reason: Pain Last Admin: 08/11/19 00:08 Dose: 20 mg Documented by: Budesonide/Formoterol Fumarate (Symbicort 160-4.5 Mcg Inhaler) 2 puff INHALATION RT-BID [facility] Last Admin: 08/11/19 07:53 Dose: Not Given Documented by: Cholecalciferol (Vitamin D3 (25 Mcg = 1000 Iu)) 2,000 unit PO DAILY [facility] Last Admin: 08/11/19 08:44 Dose: 2,000 unit Documented by: Ciprofloxacin (Cipro) 250 mg PO BID [facility] Last Admin: 08/11/19 08:43 Dose: 250 mg Documented by: Cyanocobalamin (Vitamin B-12) 1,000 mcg PO DAILY [facility] Last Admin: 08/11/19 08:43 Dose: 1,000 mcg Documented by: Ferrous Sulfate (Feosol) 325 mg PO BID [facility] Last Admin: 08/11/19 08:43 Dose: 325 mg Documented by: Folic Acid (Folic Acid) 1 mg PO DAILY [facility] Last Admin: 08/11/19 08:43 Dose: 1 mg Documented by: Gabapentin (Neurontin) 300 mg PO TID [facility] Last Admin: 08/11/19 15:21 Dose: 300 mg Documented by: Guaifenesin (Mucinex) 1,200 mg PO Q12HR [facility] Last Admin: 08/11/19 08:43 Dose: 1,200 mg Documented by: Sodium Chloride (Saline 0.9%) 1,000 mls @ 80 mls/hr IV .[id number] [facility] Last Admin: 08/11/19 06:11 Dose: 80 mls/hr Documented by: Ceftriaxone Sodium 1 gm/ (Sodium Chloride) 50 mls @ 100 mls/hr IVPB Q24HR [facility] Last Admin: 08/11/19 08:43 Dose: 100 mls/hr Documented by: Isosorbide Mononitrate (Imdur) 30 mg PO DAILY [facility] Last Admin: 08/11/19 08:44 Dose: 30 mg Documented by: Levothyroxine Sodium (Synthroid) 100 mcg PO DAILY@0630 [facility] Last Admin: 08/11/19 05:40 Dose: 100 mcg Documented by: Loperamide HCl (Imodium) 2 mg PO DAILY PRN PRN Reason: Diarrhea Meclizine HCl (Antivert) 25 mg PO QID PRN PRN Reason: Vertigo Naloxone HCl (Narcan) 0.2 mg IV Q2M PRN PRN Reason: Opioid Reversal Nystatin (Mycostatin Powder) 1 applic TOPICAL DAILY PRN PRN Reason: GROIN Oxycodone/Acetaminophen (Percocet 5-325) 1 each PO Q8H PRN PRN Reason: Pain Last Admin: 08/11/19 15:21 Dose: 1 each Documented by: Pantoprazole Sodium (Protonix) 40 mg PO AC-BID [facility] Last Admin: 08/11/19 17:01 Dose: 40 mg Documented by: Potassium Chloride (K-Dur 20) 20 meq PO DAILY [facility] Last Admin: 08/11/19 08:44 Dose: 20 meq Documented by: Primidone (Mysoline) 50 mg PO BID [facility] Last Admin: 08/11/19 08:43 Dose: 50 mg Documented by: Sucralfate (Carafate) 1 gm PO ACHS [facility] Last Admin: 08/11/19 17:01 Dose: 1 gm Documented by: Thiamine HCl (Vitamin B-1) 100 mg PO DAILY [facility] Last Admin: 08/11/19 08:44 Dose: 100 mg Documented by: Physical examination: VITAL SIGNS: 97.8, 86, 18, 100/60, 93% on room air GENERAL: Laying in bed, comfortable EYES: Pupils equal. Conjunctiva pale HEENT: External appearance of nose and ears normal, oral cavity grossly normal. NECK: JVD not raised; masses not palpable. HEART: First and second heart sounds are normal; mild edema. LUNGS: Respiratory rate increased, decreased breath sounds. ABDOMEN: Soft, no tenderness, no guarding or rigidity, liver spleen not palpable, no masses palpable. PSYCH: Alert and oriented x3; mood and affect normal. Investigations: Hemoglobin 8.8 Previous testing: hemoglobin 10.6 platelets 375 progression 4.4 creatinine 0.84 Urine drug GEN positive for oxycodone, barbiturates, benzodiazepines Serum alcohol less than 10, coronavirus PCR-not detected EKG tracing personally reviewed by me-normal sinus rhythm with Q waves in the inferior leads, PVC Chest x-ray film personally reviewed by me-possible some chronic changes Doppler ultrasound-significant right-sided acute DVT lower extremity with larger lower extremity left-sided acute DVT Assessment: -Acute on chronic GI bleed in a patient with known gastric ulcer disease. Who was on aspirin. -Acute blood loss anemia from GI bleed, patient also on IV heparin-which was discontinued. Received 2 units of blood. -Acute bilateral lower extremity DVT with greater than the left leg compared to the right, and a patient with limited activity, POA -Gastric ulcer disease -Scstt-cifjpbmtc-ttsgkov mass, workup done at [facility].-biopsy showing smoothl muscle mass, -Solitary gallstone, asymptomatic -Coronary artery disease -COPD in an ex-smoker -Chronic fibromyalgia -GERD -Hyperlipidemia -Essential hypertension -Primary osteoarthritis -Hypothyroid -Chronic multiple sclerosis -Peripheral neuropathy both the lower extremity -Chronic urinary incontinence -Chronic gait dysfunction uses a walker/wheelchair -[place] filter placed on August 09 plan: Discussed with patient. Questions were answered. . I discharge the patient this morning. Discovered in the evening that transport was not available.-Hence patient was held back.
[2019-08-12] MEDS: SODIUM CHLORIDE 0.9% 1,000 ML IV SCH (05:03)
[2019-08-12] MEDS: LEVOTHYROXINE 100 MCG TAB PO SCH (06:18)
[2019-08-12] MEDS: FOLIC ACID 1 MG TAB PO SCH (07:29)
[2019-08-12] MEDS: POTASSIUM CHLORIDE ER 20 MEQ TAB.ER PO SCH (07:30)
[2019-08-12] MEDS: CYANOCOBALAMIN 500 MCG TAB PO SCH (07:30)
[2019-08-12] MEDS: PRIMIDONE 50 MG TAB PO SCH (07:30)
[2019-08-12] MEDS: AMIODARONE 200 MG TAB PO SCH (07:30)
[2019-08-12] MEDS: CIPROFLOXACIN HCL 250 MG TAB PO SCH (07:30)
[2019-08-12] MEDS: CHOLECALCIFEROL 1,000 UNIT TAB PO SCH (07:30)
[2019-08-12] MEDS: FERROUS SULFATE 325 MG TAB PO SCH (07:30)
[2019-08-12] MEDS: ATORVASTATIN 40 MG TAB PO SCH (07:30)
[2019-08-12] MEDS: PANTOPRAZOLE 40 MG TABLET PO SCH (07:30)
[2019-08-12] MEDS: GABAPENTIN 300 MG CAP PO SCH (07:31)
[2019-08-12] MEDS: guaiFENesin 600 MG TABLET.ER PO SCH (07:31)
[2019-08-12] MEDS: ARIPiprazole 10 MG TAB PO SCH (07:31)
[2019-08-12] MEDS: THIAMINE 100 MG TAB PO SCH (07:31)
[2019-08-12] MEDS: SUCRALFATE 1 GM TAB PO SCH (07:38)
[2019-08-12] MEDS: oxyCODONE-APAP 5-325MG 1 EACH TAB PO PRN (07:39)
[2019-08-12 08:03] VITALS: BP 99/64; RESP 16; TEMP 98.1
[2019-08-12] MEDS: SYMBICORT 160-4.5 MCG INHALER INHALATION SCH (08:13)
[2019-08-12] MEDS: IPRATROPIUM-ALBUTEROL 3 ML NEB INHALATION SCH ×2 (08:14→11:43)
[2019-08-12] MEDS: ISOSORBIDE MONONITRATE ER 30 MG TAB.ER.24H PO SCH (08:31)
--- NOTE | 2019-08-12 10:25 | IR ---
Fluoroscopy HISTORY: Inferior vena cava filter placement 3.7 minutes fluoroscopy time supplied to the referring clinician. 232 intraoperative C-arm images do cument the procedure. See dictated report from vascular surgery.
[2019-08-12 11:45] VITALS: PULSE 76
--- NOTE | 2019-08-12 20:48 | P.DS ---
Providers Date of admission: 08/07/19 12:31 Expected date of discharge: 08/12/19 Attending physician: Adolfo Bay Consults: 08/07/19 12:49 Consult Physician Routine Consulting Provider: Batool Toscano Consult Reason/Comments: Possible MS exacerbation Do you want consulting provider notified?: Yes 08/08/19 19:17 Consult Physician Routine Consulting Provider: Kamaljit Dinh Consult Reason/Comments: Bilateral-lower extremity DVT acute Do you want consulting provider notified?: Yes 08/09/19 10:01 Consult Physician Routine Consulting Provider: Cameron Quiros Consult Reason/Comments: gib Do you want consulting provider notified?: Yes Primary care physician: Alexei Vera MD Hospital Course: Chief Complaint: Lower extremity weakness history of presenting complaint: This is a 63-year-old patient who follows with visiting physicians Dr. Vera.. Normally uses a wheelchair or a walker to get about. Chronic stable medical conditions include, coronary artery disease, COPD in an ex-smoker, chronic fibromyalgia, GERD, hyperlipidemia, essential hypertension, osteoarthritis, hypothyroid, chronic multiple sclerosis, peripheral neuropathy lower extremity, chronic urinary incontinence. Patient also was worked up at [facility] for a gastric greater curvature mass which eventually showed up to be normal smoked muscle cells. Patient now presents with increasing weakness in both lower extremity. No pain. No change in bowel or urine. Patient normally uses a walker and a wheelchair. No fever no chills. No back pain. Patient for a week has now had a [place] catheter. Appetite is fair. Neurology was consulted. This morning Doppler ultrasound ordered. Her weakness on lower extremity this morning is resolved. Admitted with-bilateral lower extremity DVT. Started and IV heparin. Patient stated she been having intermittent dark stools for some time. Dark stools was noted on the floor. IV heparin was discussed. GI was consulted. Patient declined EGD. [place] filter was placed on August 09. Aspirin discontinued. Received a total of 2 units of blood. Today-comfortable Tolerating a diet. Stable. Care discussed with the patient. Questions were answered. Consultation: Dr. Toscano-neurology Dr. Dionne Ulloa from vascular Dr. Eliza Solis from GI Physical examination: VITAL SIGNS: 98.1, 81, 16, 99/64, 91% on room air GENERAL: Laying in bed, comfortable EYES: Pupils equal. Conjunctiva pale HEENT: External appearance of nose and ears normal, oral cavity grossly normal. NECK: JVD not raised; masses not palpable. HEART: First and second heart sounds are normal; mild edema. LUNGS: Respiratory rate normal, decreased breath sounds. ABDOMEN: Soft, no tenderness, no guarding or rigidity, liver spleen not palpable , no masses palpable. PSYCH: Alert and oriented x3; mood and affect normal. Investigations: Hemoglobin 8.8 Previous testing: hemoglobin 10.6 platelets 375 progression 4.4 creatinine 0.84 Urine drug GEN positive for oxycodone, barbiturates, benzodiazepines Serum alcohol less than 10, coronavirus PCR-not detected EKG tracing personally reviewed by me-normal sinus rhythm with Q waves in the inferior leads, PVC Chest x-ray film personally reviewed by me-possible some chronic changes Doppler ultrasound-significant right-sided acute DVT lower extremity with larger lower extremity left-sided acute DVT Assessment: -Acute on chronic GI bleed in a patient with known gastric ulcer disease. Aspirin discontinued -Acute blood loss anemia from GI bleed, patient also on IV heparin-which was dis continued. Received 2 units of blood. -Acute bilateral lower extremity DVT with greater than the left leg compared to the right, and a patient with limited activity, POA -Gastric ulcer disease -Qergo-wwukythyq-hcdogcv mass, workup done at [facility].-biopsy showing smooth muscle mass, -Solitary gallstone, asymptomatic -Coronary artery disease -COPD in an ex-smoker -Chronic fibromyalgia -GERD -Hyperlipidemia -Essential hypertension -Primary osteoarthritis -Hypothyroid -Chronic multiple sclerosis -Peripheral neuropathy both the lower extremity -Chronic urinary incontinence -Chronic gait dysfunction uses a walker/wheelchair -[place] filter placed on August 09 Disposition: Home Patient Condition at Discharge: Stable Plan - Discharge Summary New Discharge Prescriptions: New Ciprofloxacin HCl [Cipro] 250 mg PO BID #10 tab Amiodarone [Cordarone] 200 mg PO DAILY #30 tab Primidone [Mysoline] 50 mg PO BID #60 tab Cyanocobalamin [Vitamin B-12] 1,000 mcg PO DAILY #30 tab Continue Folic Acid 1 mg PO DAILY Thiamine [Vitamin B-1] 100 mg PO DAILY ARIPiprazole [Abilify] 10 mg PO DAILY Cholecalciferol (Vitamin D3) [Vitamin D3] 2,000 unit PO DAILY Ferrous Sulfate [Iron (65 MG Elemental)] 325 mg PO BID Levothyroxine Sodium [Synthroid] 100 mcg PO DAILY Atorvastatin [Lipitor] 40 mg PO DAILY #30 tab Isosorbide Mononitrate ER [Imdur] 30 mg PO DAILY Omeprazole 40 mg PO BID Albuterol Sulfate [Proair Hfa] 2 puff INHALATION RT-QID PRN PRN Reason: Shortness Of Breath Fluticasone/Salmeterol [Fluticasone-Salmeterol 113-14] 1 puff INHALATION RT- BID Loperamide [Imodium] 2 mg PO DAILY PRN PRN Reason: Diarrhea oxyCODONE-APAP 5-325MG [Percocet 5-325 mg] 1 each PO Q8H PRN #6 tab PRN Reason: Pain Gabapentin [Neurontin] 300 mg PO TID #9 cap Sucralfate [Carafate] 1 gm PO QID Potassium Chloride ER [K-Dur 20] 20 meq PO DAILY Nystatin 100,000 Unit/gm Powd [Mycostatin Powder] 1 applic TOPICAL DAILY PRN PRN Reason: GROIN Baclofen [Lioresal] 20 mg PO TID PRN PRN Reason: Pain Discontinued Nitrofurantoin Monohyd/M-Cryst [Macrobid] 100 mg PO BID Aspirin [[place] Aspirin EC] 81 mg PO DAILY Meclizine [Antivert] 25 mg PO QID PRN PRN Reason: Vertigo Furosemide [Lasix] 40 mg PO DAILY Amiodarone [Cordarone] 100 mg PO DAILY Discharge Medication List Folic Acid 1 mg PO DAILY 04/08/14 [History] Thiamine [Vitamin B-1] 100 mg PO DAILY 04/13/15 [History] ARIPiprazole [Abilify] 10 mg PO DAILY 03/11/17 [History] Cholecalciferol (Vitamin D3) [Vitamin D3] 2,000 unit PO DAILY 09/27/18 [History] Ferrous Sulfate [Iron (65 MG Elemental)] 325 mg PO BID 09/27/18 [History] Levothyroxine Sodium [Synthroid] 100 mcg PO DAILY 09/27/18 [History] Atorvastatin [Lipitor] 40 mg PO DAILY #30 tab 09/28/18 [Rx] Isosorbide Mononitrate ER [Imdur] 30 mg PO DAILY 02/06/19 [History] Albuterol Sulfate [Proair Hfa] 2 puff INHALATION RT-QID PRN 03/16/19 [History] Fluticasone/Salmeterol [Fluticasone-Salmeterol 113-14] 1 puff INHALATION RT-BID 03/16/19 [History] Omeprazole 40 mg PO BID 03/16/19 [History] Loperamide [Imodium] 2 mg PO DAILY PRN 03/22/19 [History] Gabapentin [Neurontin] 300 mg PO TID #9 cap 04/02/19 [Rx] oxyCODONE-APAP 5-325MG [Percocet 5-325 mg] 1 each PO Q8H PRN #6 tab 04/02/19 [Rx] Baclofen [Lioresal] 20 mg PO TID PRN 08/07/19 [History] Nystatin 100,000 Unit/gm Powd [Mycostatin Powder] 1 applic TOPICAL DAILY PRN 08/07/19 [History] Potassium Chloride ER [K-Dur 20] 20 meq PO DAILY 08/07/19 [History] Sucralfate [Carafate] 1 gm PO QID 08/07/19 [History] Amiodarone [Cordarone] 200 mg PO DAILY #30 tab 08/11/19 [Rx] Ciprofloxacin HCl [Cipro] 250 mg PO BID #10 tab 08/11/19 [Rx] Cyanocobalamin [Vitamin B-12] 1,000 mcg PO DAILY #30 tab 08/11/19 [Rx] Primidone [Mysoline] 50 mg PO BID #60 tab 08/11/19 [Rx] Follow up Appointment(s)/Referral(s): Alexei Vera MD [Primary Care Provider] - 1-2 days (office will get scheduled) Arabella Solis MD [STAFF PHYSICIAN] - 08/23/19 9:00 am [facility], [NON-STAFF] - As Needed Patient Instructions/Handouts: Urinary Tract Infection in Women (DC) Activity/Diet/Wound Care/Special Instructions: cbc - 3 days Discharge Disposition: HOME SELF-CARE
== END 2019-08-12 13:11 | disposition home or self-care (01) | DRG 252 ==
LOC: EC 09:41 → 4SSUR 12:31
PROVIDERS: ADMIT Hospitalist; ATTEND Hospitalist
PROC: 30233N1 Transfusion of Nonautologous Red Blood Cells into Peripheral Vein, Percutaneous Approach (ICD-10-PCS; 2019-08-10)
PROC: 06H03DZ Insertion of Intraluminal Device into Inferior Vena Cava, Percutaneous Approach (ICD-10-PCS; principal; 2019-08-10 09:30)
DX: I82.413 Acute embolism and thrombosis of femoral vein, bilateral (principal); K25.4 Chronic or unspecified gastric ulcer with hemorrhage; T83.511A Infection and inflammatory reaction due to indwelling urethral catheter, initial encounter; D62 Acute posthemorrhagic anemia; F05 Delirium due to known physiological condition; F11.20 Opioid dependence, uncomplicated; G61.0 Guillain-Barre syndrome; K51.90 Ulcerative colitis, unspecified, without complications; L03.116 Cellulitis of left lower limb; L03.115 Cellulitis of right lower limb; L97.419 Non-pressure chronic ulcer of right heel and midfoot with unspecified severity; N30.00 Acute cystitis without hematuria; J96.10 Chronic respiratory failure, unspecified whether with hypoxia or hypercapnia; E03.9 Hypothyroidism, unspecified; E11.41 Type 2 diabetes mellitus with diabetic mononeuropathy; E11.51 Type 2 diabetes mellitus with diabetic peripheral angiopathy without gangrene; E11.621 Type 2 diabetes mellitus with foot ulcer; E78.5 Hyperlipidemia, unspecified; E86.0 Dehydration; F31.9 Bipolar disorder, unspecified; F41.0 Panic disorder [episodic paroxysmal anxiety]; Z11.59 Encounter for screening for other viral diseases; G35 Multiple sclerosis; I07.1 Rheumatic tricuspid insufficiency; I11.0 Hypertensive heart disease with heart failure; I25.10 Atherosclerotic heart disease of native coronary artery without angina pectoris; I25.2 Old myocardial infarction; I50.9 Heart failure, unspecified; J44.9 Chronic obstructive pulmonary disease, unspecified; K21.9 Gastro-esophageal reflux disease without esophagitis; K80.20 Calculus of gallbladder without cholecystitis without obstruction; M19.91 Primary osteoarthritis, unspecified site; M79.7 Fibromyalgia; R32 Unspecified urinary incontinence; Z79.82 Long term (current) use of aspirin; Z79.890 Hormone replacement therapy; Z79.899 Other long term (current) drug therapy; Z82.0 Family history of epilepsy and other diseases of the nervous system; Z82.3 Family history of stroke; Z82.49 Family history of ischemic heart disease and other diseases of the circulatory system; Z86.718 Personal history of other venous thrombosis and embolism; Z86.74 Personal history of sudden cardiac arrest; Z87.891 Personal history of nicotine dependence; Z99.3 Dependence on wheelchair; I95.9 Hypotension, unspecified; Z99.81 Dependence on supplemental oxygen
CPT/HCPCS: 36415; 37191; 71046; 80053; 80306; 80320; 81001; 82140; 82272; 82550; 83690; 83735; 84443; 84484; 85025; 85027; 85610; 85652; 85730; 86140; 86850; 86900; 86901; 86920; 87040; 87077; 87086; 87186; 87635; 93005; 93306; 93970; 94640; 96365; 96375; 99285

== ENCOUNTER 2019-08-17 01:22 | Emergency (ER) | payer OTHER ==
[2019-08-17 01:31] VITALS: RESP 18; TEMP 97.6
--- NOTE | 2019-08-17 01:36 | ED ---
SOB HPI - General Chief Complaint: Shortness of Breath Stated Complaint: SOB Time Seen by Provider: 08/17/19 01:26 Source: patient, EMS, RN notes reviewed, old records reviewed Mode of arrival: EMS Limitations: physical limitation - History of Present Illness MD Complaint: shortness of breath, cough, pain with inspiration -: days(s) Severity: moderate Severity scale (1-10): 5 Quality: aching Consistency: constant Improves With: nothing Worsens With: nothing Known History Of: COPD, congestive heart failure Context: recent URI Associated Symptoms: chest pain, pain with inspiration, cough Treatments Prior to Arrival: none - Related Data Home Medications Medication Instructions Recorded Confirmed Folic Acid 1 mg PO DAILY 04/08/14 08/07/19 Thiamine [Vitamin B-1] 100 mg PO DAILY 04/13/15 08/07/19 ARIPiprazole [Abilify] 10 mg PO DAILY 03/11/17 08/07/19 Cholecalciferol (Vitamin D3) 2,000 unit PO DAILY 09/27/18 08/07/19 [Vitamin D3] Ferrous Sulfate [Iron (65 MG 325 mg PO BID 09/27/18 08/07/19 Elemental)] Levothyroxine Sodium [Synthroid] 100 mcg PO DAILY 09/27/18 08/07/19 Isosorbide Mononitrate ER [Imdur] 30 mg PO DAILY 02/06/19 08/07/19 Albuterol Sulfate [Proair Hfa] 2 puff INHALATION RT-QID PRN 03/16/19 08/07/19 Fluticasone/Salmeterol 1 puff INHALATION RT-BID 03/16/19 08/07/19 [Fluticasone-Salmeterol 113-14] Omeprazole 40 mg PO BID 03/16/19 08/07/19 Loperamide [Imodium] 2 mg PO DAILY PRN 03/22/19 08/07/19 Baclofen [Lioresal] 20 mg PO TID PRN 08/07/19 08/07/19 Nystatin 100,000 Unit/gm Powd 1 applic TOPICAL DAILY PRN 08/07/19 08/07/19 [Mycostatin Powder] Potassium Chloride ER [K-Dur 20] 20 meq PO DAILY 08/07/19 08/07/19 Sucralfate [Carafate] 1 gm PO QID 08/07/19 08/07/19 Previous Rx's Medication Instructions Recorded Atorvastatin [Lipitor] 40 mg PO DAILY #30 tab 09/28/18 Gabapentin [Neurontin] 300 mg PO TID #9 cap 04/02/19 oxyCODONE-APAP 5-325MG [Percocet 1 each PO Q8H PRN #6 tab 04/02/19 5-325 mg] Amiodarone [Cordarone] 200 mg PO DAILY #30 tab 08/11/19 Ciprofloxacin HCl [Cipro] 250 mg PO BID #10 tab 08/11/19 Cyanocobalamin [Vitamin B-12] 1,000 mcg PO DAILY #30 tab 08/11/19 Primidone [Mysoline] 50 mg PO BID #60 tab 08/11/19 Albuterol Nebulized [Ventolin 2.5 mg INHALATION Q4H PRN #25 nebu 08/17/19 Nebulized] predniSONE 50 mg PO DAILY #5 tab 08/17/19 Allergies Allergy/AdvReac Type Severity Reaction Status Date / Time Penicillins Allergy Swelling Verified 08/07/19 13:28 Review of Systems ROS Statement: Those systems with pertinent positive or pertinent negative responses have been documented in the HPI. ROS Other: All systems not noted in ROS Statement are negative. Past Medical History Past Medical History: Coronary Artery Disease (CAD), Chest Pain / Angina, Heart Failure, COPD, Eye Disorder, Fibromyalgia, GERD/Reflux, Hyperlipidemia, Hypertension, Myocardial Infarction ([place]), Musculoskeletal Disorder, Neurologic Disorder, Osteoarthritis (OA), Pneumonia, Respiratory Disorder, Skin Disorder, Thyroid Disorder, Vascular Disorder Additional Past Medical History / Comment(s): 11/2012 [place] with cardiac arrest/vtach, chronic respiratory failure-uses home O2 prn 2-3L/NC, tracheobronchitis, tricuspid regurgitation, multiple sclerosis, neuropathy bilateral legs/feet, chronic back pain, DDD, migraines, bilateral carpal tunnel syndrome, past L/R rib fractures, past L hip fracture with surgery, PUD with ulcer rupture with surgery, peritonitis, pancreatitis, IBS/ ulcerative colitis, chronic anemia, UTIs, urinary incontinence, endometriosis, hypothyroid, R cataract and L eye cataract forming again, PVD, L leg cellulitis, Last Myocardial Infarction Date:: 2012 History of Any Multi-Drug Resistant Organisms: ESBL Date of last positivie culture/infection: 02/18/2014 MDRO Source:: Blood and Urine E. coli ESBL Past Surgical History: AICD, Appendectomy, Heart Catheterization, Heart Catheterization With Stent, Orthopedic Surgery, Pacemaker Additional Past Surgical History / Comment(s): Cardioversion, Laparotomy for ruptured gastric ulcer, R foot fracture with surgery, L hip fracture with surgery-has plate and screw, EGD, colonoscopies with bening polypectomy. Past Anesthesia/Blood Transfusion Reactions: No Reported Reaction Additional Past Anesthesia/Blood Transfusion Reaction / Comment(s): Pt has received blood in past without reaction. Date of Last Stent Placement:: 11/2012 Type of Cardiac Device: Permanent Pacemaker, AICD Device Placement Date:: 2012 Past Psychological History: Anxiety, Bipolar, Depression, Panic Disorder Smoking Status: Former smoker Past Alcohol Use History: None Reported Past Drug Use History: None Reported - Past Family History Mother Family Medical History: Musculoskeletal Disorder Additional Family Medical History / Comment(s): MS Sister(s) Family Medical History: Myocardial Infarction ([place]) Additional Family Medical History / Comment(s): SISTER ALSO HAS MS Brother(s) Family Medical History: Musculoskeletal Disorder, Neurologic Disorder Additional Family Medical History / Comment(s): MS Father Additional Family Medical History / Comment(s): ETOH abuse, back surgery General Exam Limitations: physical limitation General appearance: alert, in no apparent distress Head exam: Present: atraumatic, normocephalic, normal inspection Eye exam: Present: normal appearance, PERRL, EOMI. Absent: scleral icterus, conjunctival injection, periorbital swelling ENT exam: Present: normal exam, mucous membranes moist Neck exam: Present: normal inspection. Absent: tenderness, meningismus, lymphadenopathy Respiratory exam: Present: wheezes. Absent: respiratory distress, rales, rhonchi, stridor Cardiovascular Exam: Present: regular rate, normal rhythm, normal heart sounds. Absent: systolic murmur, diastolic murmur, rubs, gallop, clicks GI/Abdominal exam: Present: soft, normal bowel sounds. Absent: distended, tenderness, guarding, rebound, rigid Extremities exam: Present: normal inspection, full ROM, normal capillary refill. Absent: tenderness, pedal edema, joint swelling, calf tenderness Back exam: Present: normal inspection Neurological exam: Present: alert, oriented X3, CN II-XII intact Psychiatric exam: Present: normal affect, normal mood Skin exam: Present: warm, dry, intact, normal color. Absent: rash Course Vital Signs 08/17/19 08/17/19 08/17/19 01:23 01:33 02:30 Temperature 97.6 F Pulse Rate 90 82 Respiratory 18 18 Rate Blood Pressure 117/74 O2 Sat by Pulse 98 Oximetry 08/17/19 08/17/19 02:43 03:45 Temperature Pulse Rate 79 84 Respiratory 18 Rate Blood Pressure 108/69 O2 Sat by Pulse 98 Oximetry Medical Decision Making - Lab Data Result diagrams: 08/17/19 02:30 08/17/19 02:30 Lab Results 08/17/19 08/17/19 08/17/19 Range/Units 02:30 02:30 02:30 WBC 6.8 (3.8-10.6) k/uL RBC 2.69 L (3.80-5.40) m/uL Hgb 8.2 L (11.4-16.0) gm/dL Hct 26.7 L (34.0-46.0) % MCV 99.2 (80.0-100.0) fL MCH 30.4 (25.0-35.0) pg MCHC 30.6 L (31.0-37.0) g/dL RDW 15.4 (11.5-15.5) % Plt Count 291 (150-450) k/uL Neutrophils % 65 % Lymphocytes % 19 % Monocytes % 7 % Eosinophils % 5 % Basophils % 1 % Neutrophils # 4.4 (1.3-7.7) k/uL Lymphocytes # 1.3 (1.0-4.8) k/uL Monocytes # 0.5 (0-1.0) k/uL Eosinophils # 0.3 (0-0.7) k/uL Basophils # 0.0 (0-0.2) k/uL Hypochromasia Marked Macrocytosis Slight PT 10.9 (9.0-12.0) sec INR 1.1 (<1.2) APTT 23.1 (22.0-30.0) sec Sodium 133 L (137-145) mmol/L Potassium 3.7 (3.5-5.1) mmol/L Chloride 98 (98-107) mmol/L Carbon Dioxide 34 H (22-30) mmol/L Anion Gap 1 mmol/L BUN 11 (7-17) mg/dL Creatinine 0.56 (0.52-1.04) mg/dL Est GFR (CKD-EPI)AfAm >90 (>60 ml/min/1.73 sqM) Est GFR (CKD-EPI)NonAf >90 (>60 ml/min/1.73 sqM) Glucose 123 H (74-99) mg/dL Plasma Lactic Acid Zaki (0.7-2.0) mmol/L Calcium 7.9 L (8.4-10.2) mg/dL Magnesium 1.7 (1.6-2.3) mg/dL Total Bilirubin 0.1 L (0.2-1.3) mg/dL AST 29 (14-36) U/L ALT 11 (4-34) U/L Alkaline Phosphatase 50 (38-126) U/L Troponin I (0.000-0.034) ng/mL NT-Pro-B Natriuret Pep pg/mL Total Protein 4.7 L (6.3-8.2) g/dL Albumin 2.2 L (3.5-5.0) g/dL 08/17/19 08/17/19 08/17/19 Range/Units 02:30 02:30 02:30 WBC (3.8-10.6) k/uL RBC (3.80-5.40) m/uL Hgb (11.4-16.0) gm/dL Hct (34.0-46.0) % MCV (80.0-100.0) fL MCH (25.0-35.0) pg MCHC (31.0-37.0) g/dL RDW (11.5-15.5) % Plt Count (150-450) k/uL Neutrophils % % Lymphocytes % % Monocytes % % Eosinophils % % Basophils % % Neutrophils # (1.3-7.7) k/uL Lymphocytes # (1.0-4.8) k/uL Monocytes # (0-1.0) k/uL Eosinophils # (0-0.7) k/uL Basophils # (0-0.2) k/uL Hypochromasia Macrocytosis PT (9.0-12.0) sec INR (<1.2) APTT (22.0-30.0) sec Sodium (137-145) mmol/L Potassium (3.5-5.1) mmol/L Chloride (98-107) mmol/L Carbon Dioxide (22-30) mmol/L Anion Gap mmol/L BUN (7-17) mg/dL Creatinine (0.52-1.04) mg/dL Est GFR (CKD-EPI)AfAm (>60 ml/min/1.73 sqM) Est GFR (CKD-EPI)NonAf (>60 ml/min/1.73 sqM) Glucose (74-99) mg/dL Plasma Lactic Acid Zaki 0.9 (0.7-2.0) mmol/L Calcium (8.4-10.2) mg/dL Magnesium (1.6-2.3) mg/dL Total Bilirubin (0.2-1.3) mg/dL AST (14-36) U/L ALT (4-34) U/L Alkaline Phosphatase (38-126) U/L Troponin I <0.012 (0.000-0.034) ng/mL NT-Pro-B Natriuret Pep 553 pg/mL Total Protein (6.3-8.2) g/dL Albumin (3.5-5.0) g/dL - EKG Data -: EKG Interpreted by Me (EKG shows sinus rhythm rate of 81, MA 1:30, QRS 96, QTC 376) Disposition Clinical Impression: Acute exacerbation of chronic obstructive pulmonary disease Disposition: HOME SELF-CARE Condition: Fair Instructions (If sedation given, give patient instructions): Acute Bronchitis (ED), Chronic Bronchitis (ED) Prescriptions: predniSONE 50 mg PO DAILY #5 tab Albuterol Nebulized [Ventolin Nebulized] 2.5 mg INHALATION Q4H PRN #25 nebu PRN Reason: Shortness Of Breath Is patient prescribed a controlled substance at d/c from ED?: No Referrals: Alexei Vera MD [Primary Care Provider] - 1-2 days
[2019-08-17] MEDS ORDERED: IPRATROPIUM-ALBUTEROL 3 ML NEB INHALATION STA ×2 (02:09→03:06)
[2019-08-17] MEDS ORDERED: MORPHINE SULFATE 4 MG/ML SYRINGE IVP STA (02:13)
[2019-08-17 02:42] LABS: Basophils % (A) 1 %; Eosinophils # (A) 0.3 k/uL (0-0.7); Eosinophils % (A) 5 %; HCT 26.7 % (34.0-46.0); HGB 8.2 gm/dL (11.4-16.0); Hypochromasia Marked; Lymphocytes # (A) 1.3 k/uL (1.0-4.8); Lymphocytes % (A) 19 %; MCH 30.4 pg (25.0-35.0); MCHC 30.6 g/dL (31.0-37.0); MCV 99.2 fL (80.0-100.0); Macrocytosis Slight; Mean Platelet Volume 7.3; Monocytes # (A) 0.5 k/uL (0-1.0); Monocytes % (A) 7 %; Neutrophils # (A) 4.4 k/uL (1.3-7.7); Neutrophils % (A) 65 %; Platelet Count 291 k/uL (150-450); RBC 2.69 m/uL (3.80-5.40); RDW 15.4 % (11.5-15.5); WBC 6.8 k/uL (3.8-10.6)
[2019-08-17 02:48] LABS: INR 1.1 (<1.2); Partial Thromboplastin Time 23.1 sec (22.0-30.0); Prothrombin Time 10.9 sec (9.0-12.0)
--- NOTE | 2019-08-17 02:49 | XR ---
EXAMINATION TYPE: XR chest 1V DATE OF EXAM: 08/17/2019 COMPARISON: 08/07/2019 HISTORY: Difficulty breathing TECHNIQUE: FINDINGS: There is a left axillary pacemaker. There is second implanted device over the left lower gina ng field. There is no heart failure nor confluent pneumonic infiltrate. There is slight coarsening of interstitial markings. Costophrenic angles are clear. IMPRESSION: Mild pulmonary fibrotic changes. No heart failure. Inspiration improved compared to last exam.
[2019-08-17 02:50] LABS: ALT 11 U/L (4-34); AST 29 U/L (14-36); African American GFR (CKD) >90 (>60 ml/min/1.73 sqM); Albumin 2.2 g/dL (3.5-5.0); Alkaline Phosphatase 50 U/L (38-126); Anion Gap 1 mmol/L; Blood Urea Nitrogen 11 mg/dL (7-17); Calcium 7.9 mg/dL (8.4-10.2); Carbon Dioxide 34 mmol/L (22-30); Chloride 98 mmol/L (98-107); Glucose 123 mg/dL (74-99); Magnesium 1.7 mg/dL (1.6-2.3); Non-African American GFR(CKD) >90 (>60 ml/min/1.73 sqM); Potassium 3.7 mmol/L (3.5-5.1); Sodium 133 mmol/L (137-145); Total Bilirubin 0.1 mg/dL (0.2-1.3); Total Protein 4.7 g/dL (6.3-8.2)
[2019-08-17] MEDS ORDERED: methylPREDNISolone SOD SUCCI 125 MG/2 ML VIAL IV STA (03:06)
[2019-08-17 03:47] VITALS: BP 108/69; PULSE 84
== END 2019-08-17 03:47 | disposition home or self-care (01) ==
LOC: EC 01:22
DX: J44.1 Chronic obstructive pulmonary disease with (acute) exacerbation (principal); I25.119 Atherosclerotic heart disease of native coronary artery with unspecified angina pectoris; I11.0 Hypertensive heart disease with heart failure; I50.9 Heart failure, unspecified; E78.5 Hyperlipidemia, unspecified; I25.2 Old myocardial infarction; E03.9 Hypothyroidism, unspecified; F41.0 Panic disorder [episodic paroxysmal anxiety]; F31.9 Bipolar disorder, unspecified; Z79.890 Hormone replacement therapy; Z79.899 Other long term (current) drug therapy; Z79.51 Long term (current) use of inhaled steroids; Z88.0 Allergy status to penicillin; Z87.891 Personal history of nicotine dependence; Z95.0 Presence of cardiac pacemaker; Z95.5 Presence of coronary angioplasty implant and graft
CPT/HCPCS: 99285; 96374; 96375; 36415; 94640; 93005; 83880; 80053; 83605; 83735; 84484; 85025; 85610; 85730; 71045; J2270; J2930

== ENCOUNTER 2019-09-06 13:23 | Observation (INO) | payer OTHER ==
[2019-09-06] MEDS ORDERED: SODIUM CHLORIDE 0.9% 500 ML 500 ML IV STA (14:15)
--- NOTE | 2019-09-06 14:23 | ED ---
General Adult HPI - General Chief complaint: Recheck/Abnormal Lab/Rx Stated complaint: facial swelling Time Seen by Provider: 09/06/19 13:57 Source: patient Mode of arrival: ambulatory Limitations: no limitations - History of Present Illness Initial comments: Patient is a 64-year-old female, with multiple comorbidities including a recent IVC stent placement for bilateral lower extremity DVTs, presenting to the emergency Department with complaints of swelling to the right side of the face x 1 week. Patient denies any falls or trauma to the side of face. She states she has never had swelling here before. Patient denies having pain in her face. S he does state that she sleeps a lot on her right side of her face and often leans towards that side as well. She states she has a history of MS and has chronic pain, nothing more than usual. She also has COPD she has some mild shortness of breath, no more than usual, she uses oxygen at home as needed. She denies any recent fever, chills, cough. She denies any dizziness, chest pain. She denies any urinary complaints. She has no further complaints at this time - Related Data Home Medications Medication Instructions Recorded Confirmed Folic Acid 1 mg PO DAILY 04/08/14 09/06/19 Thiamine [Vitamin B-1] 100 mg PO DAILY 04/13/15 09/06/19 Cholecalciferol (Vitamin D3) 2,000 unit PO DAILY 09/27/18 09/06/19 [Vitamin D3] Ferrous Sulfate [Iron (65 MG 325 mg PO BID 09/27/18 09/06/19 Elemental)] Levothyroxine Sodium [Synthroid] 100 mcg PO DAILY 09/27/18 09/06/19 Isosorbide Mononitrate ER [Imdur] 30 mg PO DAILY 02/06/19 09/06/19 Albuterol Sulfate [Proair Hfa] 2 puff INHALATION RT-QID PRN 03/16/19 09/06/19 Omeprazole 40 mg PO BID 03/16/19 09/06/19 Baclofen [Lioresal] 20 mg PO TID PRN 08/07/19 09/06/19 Potassium Chloride ER [K-Dur 20] 20 meq PO DAILY 08/07/19 09/06/19 Sucralfate [Carafate] 1 gm PO QID 08/07/19 09/06/19 ALPRAZolam [Xanax] 0.25 mg PO TID PRN 09/06/19 09/06/19 Abilify (Unknown Strength) 1 tab PO DAILY 09/06/19 09/06/19 Albuterol Nebulized [Ventolin 2.5 mg INHALATION RT-Q4H PRN 09/06/19 09/06/19 Nebulized] Amiodarone HCl [Pacerone] 100 mg PO DAILY 09/06/19 09/06/19 Furosemide [Lasix] 20 mg PO DAILY 09/06/19 09/06/19 Ipratropium-Albuterol Nebulize 3 ml INHALATION RT-QID 09/06/19 09/06/19 [Duoneb 0.5 mg-3 mg/3 ml Soln] oxyCODONE-APAP 5-325MG [Percocet 1 tab PO Q8H PRN 09/06/19 09/06/19 5-325 mg] Previous Rx's Medication Instructions Recorded Atorvastatin [Lipitor] 40 mg PO DAILY #30 tab 09/28/18 Gabapentin [Neurontin] 300 mg PO TID #9 cap 04/02/19 Cyanocobalamin [Vitamin B-12] 1,000 mcg PO DAILY #30 tab 08/11/19 Allergies Allergy/AdvReac Type Severity Reaction Status Date / Time Penicillins Allergy Swelling Verified 09/06/19 20:11 Review of Systems ROS Statement: Those systems with pertinent positive or pertinent negative responses have been documented in the HPI. ROS Other: All systems not noted in ROS Statement are negative. Past Medical History Past Medical History: Coronary Artery Disease (CAD), Chest Pain / Angina, Heart Failure, COPD, Eye Disorder, Fibromyalgia, GERD/Reflux, Hyperlipidemia, Hypertension, Myocardial Infarction ([place]), Musculoskeletal Disorder, Neurologic Disorder, Osteoarthritis (OA), Pneumonia, Respiratory Disorder, Skin Disorder, Thyroid Disorder, Vascular Disorder Additional Past Medical History / Comment(s): 11/2012 [place] with cardiac arrest/vtach, chronic respiratory failure-uses home O2 prn 2-3L/NC, tracheobronchitis, tricuspid regurgitation, multiple sclerosis, neuropathy bilateral legs/feet, chronic back pain, DDD, migraines, bilateral carpal tunnel syndrome, past L/R rib fractures, past L hip fracture with surgery, PUD with ulcer rupture with surgery, peritonitis, pancreatitis, IBS/ ulcerative colitis, chronic anemia, UTIs, urinary incontinence, endometriosis, hypothyroid, R cataract and L eye cataract forming again, PVD, L leg cellulitis, Last Myocardial Infarction Date:: 2012 History of Any Multi-Drug Resistant Organisms: ESBL Date of last positivie culture/infection: 02/18/2014 MDRO Source:: Blood and Urine E. coli ESBL Past Surgical History: AICD, Appendectomy, Heart Catheterization, Heart Catheterization With Stent, Orthopedic Surgery, Pacemaker Additional Past Surgical History / Comment(s): Cardioversion, Laparotomy for ruptured gastric ulcer, R foot fracture with surgery, L hip fracture with surgery-has plate and screw, EGD, colonoscopies with bening polypectomy. Past Anesthesia/Blood Transfusion Reactions: No Reported Reaction Additional Past Anesthesia/Blood Transfusion Reaction / Comment(s): Pt has received blood in past without reaction. Date of Last Stent Placement:: 11/2012 Type of Cardiac Device: Permanent Pacemaker, AICD Device Placement Date:: 2012 Past Psychological History: Anxiety, Bipolar, Depression, Panic Disorder Smoking Status: Former smoker Past Alcohol Use History: None Reported Past Drug Use History: None Reported - Past Family History Mother Family Medical History: Musculoskeletal Disorder Additional Family Medical History / Comment(s): MS Sister(s) Family Medical History: Myocardial Infarction ([place]) Additional Family Medical History / Comment(s): SISTER ALSO HAS MS Brother(s) Family Medical History: Musculoskeletal Disorder, Neurologic Disorder Additional Family Medical History / Comment(s): MS Father Additional Family Medical History / Comment(s): ETOH abuse, back surgery General Exam - General Exam Comments Initial Comments: GENERAL: Patient appears pale, and in no acute distress. HEAD: Atraumatic, normocephalic. Patient has some mild swelling to the right side of her face including right upper eyelid and into the jaw area. This area is not erythematous, no pain with palpation. EYES: Pupils equal round and reactive to light, extraocular movements intact, sclera anicteric, conjunctiva are normal. ENT: TMs normal, nares patent, oropharynx clear without exudates. Dry mucous membranes. NECK: Normal range of motion, supple without lymphadenopathy or JVD. LUNGS: Mild scattered wheezes throughout, No rales or rhonchi. HEART: Regular rate and rhythm without murmurs, rubs or gallops. ABDOMEN: Soft, nontender, normoactive bowel sounds. No guarding, no rebound. No masses appreciated. : Deferred EXTREMITIES: Normal range of motion, no pitting or edema. No clubbing or cyanosis. Neurovascular intact. NEUROLOGICAL: Cranial nerves II through XII grossly intact. Normal speech, normal gait. PSYCH: Normal mood, normal affect. SKIN: Warm, Dry, normal turgor, no rashes or lesions noted. Limitations: no limitations Course Vital Signs 09/06/19 09/06/19 09/06/19 13:28 13:30 14:00 Temperature 99.0 F Pulse Rate 82 85 81 Respiratory 20 Rate Blood Pressure 103/62 103/62 94/55 O2 Sat by Pulse 95 95 96 Oximetry 09/06/19 09/06/19 09/06/19 14:30 15:00 15:30 Temperature Pulse Rate 81 81 79 Respiratory Rate Blood Pressure 97/69 94/64 O2 Sat by Pulse 91 L 93 L Oximetry 09/06/19 09/06/19 09/06/19 16:00 16:30 16:32 Temperature Pulse Rate 76 74 74 Respiratory 18 Rate Blood Pressure 94/61 108/95 108/95 O2 Sat by Pulse Oximetry 09/06/19 09/06/19 09/06/19 17:00 17:10 17:40 Temperature 98.4 F 97.9 F 97.6 F Pulse Rate 77 76 77 Respiratory 15 16 16 Rate Blood Pressure 95/65 110/66 96/72 O2 Sat by Pulse 96 96 96 Oximetry EKG Findings - EKG Comments: EKG Findings:: EKG shows sinus rhythm with frequent premature ventricular complexes, no signs of acute ischemia. Ventricular rate 81, MA interval 128, QTC 399. Similar to previous EKG on 08/17/2019. Medical Decision Making - Medical Decision Making Patient is a 64-year-old female presenting with mild swelling to the right side of her face. Upon arrival, patient appeared very pale. Patient had no pain or signs of infection associated with a right facial swelling. Patient has history of MS and often leaves and sleeps towards the right side. Patient admits to history of abdominal mass. She has no signs of acute bleeding at this time. Denies hematochezia. Lab work reveals a hemoglobin of 6.0. I did order 2 units of RBCs, she was transfused one unit. Patient is feeling comfortable. Patient will be admitted for acute anemia. Patient was accepted by Dr. Bay with GI on consult. Patient is in agreement with this plan of care. Case discussed with Dr. Felder. - Lab Data Result diagrams: 09/06/19 13:52 09/06/19 13:52 Lab Results 09/06/19 09/06/19 09/06/19 Range/Units 13:52 13:52 13:52 WBC 9.0 (3.8-10.6) k/uL RBC 2.02 L (3.80-5.40) m/uL Hgb 6.0 L* D (11.4-16.0) gm/dL Hct 20.0 L (34.0-46.0) % MCV 98.8 (80.0-100.0) fL MCH 29.7 (25.0-35.0) pg MCHC 30.1 L (31.0-37.0) g/dL RDW 16.1 H (11.5-15.5) % Plt Count 238 (150-450) k/uL Neutrophils % 82 % Lymphocytes % 12 % Monocytes % 5 % Eosinophils % 1 % Basophils % 0 % Neutrophils # 7.4 (1.3-7.7) k/uL Lymphocytes # 1.1 (1.0-4.8) k/uL Monocytes # 0.4 (0-1.0) k/uL Eosinophils # 0.1 (0-0.7) k/uL Basophils # 0.0 (0-0.2) k/uL Hypochromasia Marked Poikilocytosis Slight Anisocytosis Slight Macrocytosis Slight PT 11.3 (9.0-12.0) sec INR 1.1 (<1.2) APTT 23.0 (22.0-30.0) sec Sodium 131 L (137-145) mmol/L Potassium 4.2 (3.5-5.1) mmol/L Chloride 96 L (98-107) mmol/L Carbon Dioxide 32 H (22-30) mmol/L Anion Gap 3 mmol/L BUN 17 (7-17) mg/dL Creatinine 0.62 (0.52-1.04) mg/dL Est GFR (CKD-EPI)AfAm >90 (>60 ml/min/1.73 sqM) Est GFR (CKD-EPI)NonAf >90 (>60 ml/min/1.73 sqM) Glucose 95 (74-99) mg/dL Plasma Lactic Acid Zaki (0.7-2.0) mmol/L Calcium 7.7 L (8.4-10.2) mg/dL Total Bilirubin 0.2 (0.2-1.3) mg/dL AST 20 (14-36) U/L ALT 10 (4-34) U/L Alkaline Phosphatase 49 (38-126) U/L Total Protein 4.6 L (6.3-8.2) g/dL Albumin 2.3 L (3.5-5.0) g/dL Blood Type Blood Type Recheck Bld Type Recheck Status Antibody Screen Crossmatch Spec Expiration Date 09/06/19 09/06/19 Range/Units 13:52 13:52 WBC (3.8-10.6) k/uL RBC (3.80-5.40) m/uL Hgb (11.4-16.0) gm/dL Hct (34.0-46.0) % MCV (80.0-100.0) fL MCH (25.0-35.0) pg MCHC (31.0-37.0) g/dL RDW (11.5-15.5) % Plt Count (150-450) k/uL Neutrophils % % Lymphocytes % % Monocytes % % Eosinophils % % Basophils % % Neutrophils # (1.3-7.7) k/uL Lymphocytes # (1.0-4.8) k/uL Monocytes # (0-1.0) k/uL Eosinophils # (0-0.7) k/uL Basophils # (0-0.2) k/uL Hypochromasia Poikilocytosis Anisocytosis Macrocytosis PT (9.0-12.0) sec INR (<1.2) APTT (22.0-30.0) sec Sodium (137-145) mmol/L Potassium (3.5-5.1) mmol/L Chloride (98-107) mmol/L Carbon Dioxide (22-30) mmol/L Anion Gap mmol/L BUN (7-17) mg/dL Creatinine (0.52-1.04) mg/dL Est GFR (CKD-EPI)AfAm (>60 ml/min/1.73 sqM) Est GFR (CKD-EPI)NonAf (>60 ml/min/1.73 sqM) Glucose (74-99) mg/dL Plasma Lactic Acid Zaki 1.0 (0.7-2.0) mmol/L Calcium (8.4-10.2) mg/dL Total Bilirubin (0.2-1.3) mg/dL AST (14-36) U/L ALT (4-34) U/L Alkaline Phosphatase (38-126) U/L Total Protein (6.3-8.2) g/dL Albumin (3.5-5.0) g/dL Blood Type A Positive Blood Type Recheck A Pos Bld Type Recheck Status No Antibody Screen NEGATIVE Crossmatch See Detail Spec Expiration Date 09/09/20192351 Critical Care Time Critical Care Time: Yes Total Critical Care Time: 35 (Patient he ER with complaints of right-sided facial swelling, she is very pale on arrival. Lab work revealed a hemoglobin of 6.0. Patient was transfused with 1 unit. Patient is admitted for acute anemia.) Disposition Clinical Impression: Hypotension, Anemia Disposition: ADMITTED IP TO THIS HOSP Condition: Fair Is patient prescribed a controlled substance at d/c from ED?: No Decision Date: 09/06/19 Decision Time: 17:04
[2019-09-06 14:55] LABS: ALT 10 U/L (4-34); AST 20 U/L (14-36); African American GFR (CKD) >90 (>60 ml/min/1.73 sqM); Albumin 2.3 g/dL (3.5-5.0); Alkaline Phosphatase 49 U/L (38-126); Anion Gap 3 mmol/L; Blood Urea Nitrogen 17 mg/dL (7-17); Calcium 7.7 mg/dL (8.4-10.2); Carbon Dioxide 32 mmol/L (22-30); Chloride 96 mmol/L (98-107); Glucose 95 mg/dL (74-99); INR 1.1 (<1.2); Non-African American GFR(CKD) >90 (>60 ml/min/1.73 sqM); Potassium 4.2 mmol/L (3.5-5.1); Prothrombin Time 11.3 sec (9.0-12.0); Sodium 131 mmol/L (137-145); Total Bilirubin 0.2 mg/dL (0.2-1.3); Total Protein 4.6 g/dL (6.3-8.2)
[2019-09-06 14:58] LABS: Anisocytosis Slight; Basophils % (A) 0 %; Eosinophils # (A) 0.1 k/uL (0-0.7); Eosinophils % (A) 1 %; Hypochromasia Marked; Lymphocytes # (A) 1.1 k/uL (1.0-4.8); Lymphocytes % (A) 12 %; MCH 29.7 pg (25.0-35.0); MCHC 30.1 g/dL (31.0-37.0); MCV 98.8 fL (80.0-100.0); Macrocytosis Slight; Mean Platelet Volume 8.7; Monocytes # (A) 0.4 k/uL (0-1.0); Monocytes % (A) 5 %; Neutrophils # (A) 7.4 k/uL (1.3-7.7); Neutrophils % (A) 82 %; Platelet Count 238 k/uL (150-450); Poikilocytosis Slight; RBC 2.02 m/uL (3.80-5.40); RDW 16.1 % (11.5-15.5)
[2019-09-06] MEDS ORDERED: ONDANSETRON 4 MG/2 ML VIAL IVP PRN (17:04)
[2019-09-06] MEDS ORDERED: NALOXONE 0.4 MG/ML 1 ML VIAL IV PRN (17:04)
[2019-09-06] MEDS ORDERED: oxyCODONE-APAP 5-325MG 1 EACH TAB PO STA (17:51)
[2019-09-06] MEDS ORDERED: ALBUTEROL HFA INHALER INHALATION PRN (21:28)
[2019-09-06] MEDS ORDERED: ALBUTEROL NEBULIZED 2.5 MG/3 ML INHALATION PRN (21:28)
[2019-09-06] MEDS ORDERED: ALPRAZolam 0.25 MG TAB PO PRN (22:00)
[2019-09-06] MEDS: FERROUS SULFATE 325 MG TAB PO SCH (22:11)
[2019-09-06] MEDS: SUCRALFATE 1 GM TAB PO SCH (22:11)
[2019-09-06] MEDS: GABAPENTIN 300 MG CAP PO SCH (22:11)
[2019-09-06] MEDS: ATORVASTATIN 40 MG TAB PO SCH (22:11)
[2019-09-06] MEDS: PANTOPRAZOLE 40 MG TABLET PO SCH (22:11)
[2019-09-06] MEDS: BACLOFEN 10 MG TAB PO PRN (22:23)
[2019-09-07] MEDS: oxyCODONE-APAP 5-325MG 1 EACH TAB PO PRN ×3 (01:42→19:58)
[2019-09-07] MEDS: LEVOTHYROXINE 100 MCG TAB PO SCH (06:01)
[2019-09-07] MEDS: SODIUM CHLORIDE 0.9% 1,000 ML IV SCH ×3 (06:01→19:59)
[2019-09-07] MEDS: PANTOPRAZOLE 40 MG TABLET PO SCH ×2 (07:34→19:59)
[2019-09-07] MEDS: BACLOFEN 10 MG TAB PO PRN ×2 (07:35→22:51)
[2019-09-07] MEDS: FUROSEMIDE 20 MG TAB PO SCH (07:35)
[2019-09-07] MEDS: CHOLECALCIFEROL 1,000 UNIT TAB PO SCH (07:35)
[2019-09-07] MEDS: POTASSIUM CHLORIDE ER 20 MEQ TAB.ER PO SCH (07:35)
[2019-09-07] MEDS: SUCRALFATE 1 GM TAB PO SCH ×4 (07:35→19:58)
[2019-09-07] MEDS: ATORVASTATIN 40 MG TAB PO SCH (07:35)
[2019-09-07] MEDS: CYANOCOBALAMIN 500 MCG TAB PO SCH (07:35)
[2019-09-07] MEDS: AMIODARONE 100 MG TAB PO SCH (07:35)
[2019-09-07] MEDS: FOLIC ACID 1 MG TAB PO SCH (07:35)
[2019-09-07] MEDS: ISOSORBIDE MONONITRATE ER 30 MG TAB.ER.24H PO SCH (07:35)
[2019-09-07] MEDS: THIAMINE 100 MG TAB PO SCH (07:35)
[2019-09-07] MEDS: GABAPENTIN 300 MG CAP PO SCH ×3 (07:36→19:58)
[2019-09-07] MEDS: FERROUS SULFATE 325 MG TAB PO SCH ×2 (07:36→19:58)
[2019-09-07] MEDS: IPRATROPIUM-ALBUTEROL 3 ML NEB INHALATION SCH ×4 (08:32→19:16)
[2019-09-07] MEDS ORDERED: ABILIFY PO SCH (09:00)
[2019-09-07 09:35] LABS: HCT 28.6 % (34.0-46.0); Hypochromasia Marked; MCH 31.1 pg (25.0-35.0); MCHC 32.7 g/dL (31.0-37.0); MCV 95.3 fL (80.0-100.0); Mean Platelet Volume 8.5; Platelet Count 147 k/uL (150-450); Poikilocytosis Marked; RDW 15.7 % (11.5-15.5); WBC 7.5 k/uL (3.8-10.6)
[2019-09-07 09:38] LABS: HGB 9.3 gm/dL (11.4-16.0)
[2019-09-07 11:33] LABS: Anisocytosis (M) Present; Eosinophils # (M) 0.08 k/uL (0-0.7); Lymphocytes # (M) 1.43 k/uL (1.0-4.8); Monocytes # (M) 0.08 k/uL (0-1.0); Neutrophils # (M) 5.93 k/uL (1.3-7.7); Neutrophils % (M) 79 %; Nucleated Red Blood Cells 0 /100 WBC (0-0); Total Cells Counted 100
[2019-09-07] MEDS: ARIPiprazole 10 MG TAB PO SCH (12:53)
[2019-09-07] MEDS: CITALOPRAM HYDROBROMIDE 20 MG TAB PO SCH (12:54)
--- NOTE | 2019-09-07 21:04 | P.HPIM ---
History of Present Illness H&P Date: 09/07/19 Chief Complaint: Puffy right side of the face history of presenting complaint: This is a 63-year-old patient who follows with visiting physicians Dr. Vera.. Normally uses a wheelchair or a walker to get about. Chronic stable medical conditions include, coronary artery disease, COPD in an ex-smoker, chronic fibromyalgia, GERD, hyperlipidemia, essential hypertension, osteoarthritis, hypothyroid, chronic multiple sclerosis, peripheral neuropathy lower extremity, chronic urinary incontinence. Patient also was worked up at [facility] for a gastric greater curvature mass which eventually showed up to be normal smooth muscle cells. Also's chronic intermittent GI bleed from a gastric ulcer. Patient admitted to the hospital on August 06 with a diagnosis of bilateral lower extremity DVT. Could not tolerate IV heparin because of intermittent dark stools for some time. Did require blood transfusion. [place] filter was placed. Patient declined any endoscopy. Patient now sent in by the family doctor because of noticing puffiness in the right side of the face. It may be noted that patient always sleeps in the right part of the head tilted to the right cheek on the pillow. Patient was found to be anemic in the ER. It hemoglobin of 6. 2 units of blood was ordered. There is no pain in the right cheek. No change in vision or headache or fever or ch ills. Patient continues to get intermittent dark stools. Patient does not want any endoscopy. Review of systems: GEN.: Tired EYES: None HEENT: Slight puffiness of the right side of the face NECK: None RESPIRATORY: As above CARDIOVASCULAR: None GASTROINTESTINAL: Intermittent abdominal pain with talk stools GENITOURINARY: None MUSCULOSKELETAL: joint pain LYMPHATICS: None HEMATOLOGICAL: None PSYCHIATRY: None NEUROLOGICAL: does use a wheelchair or a walker-rest as above Past medical history to include: Coronary artery disease, COPD in an ex-smoker, chronic fibromyalgia, GERD, hyperlipidemia, essential hypertension, osteoarthritis, hypothyroid, chronic multiple sclerosis, peripheral neuropathy lower extremity, chronic urinary incontinence, 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 Has a friend Alvarado who spends most of the day with her. uses walker and/or wheelchair history of alcohol abuse last drink over 20 years ago. Also smoked a pack a day for close to 40 years up until very recently. Physical examination: VITAL SIGNS: 99, 82, 20, 94/55, 96% on room air-upon presentation GENERAL: Laying in bed, awake EYES: Pupils equal. Conjunctiva pale HEENT: External appearance of nose and ears normal, oral cavity grossly normal. Slight puffiness of the right side cheek, with no tenderness-patient has no skin NECK: JVD not raised; masses not palpable. HEART: First and second heart sounds are normal; mild edema. LUNGS: Respiratory rate increased, decreased breath sounds. ABDOMEN: Soft, no tenderness, no guarding or rigidity, liver spleen not palpable, no masses palpable. LYMPHATICS: No lymph nodes palpable in the axilla and neck. PSYCH: Alert and oriented x3; mood and affect normal. Investigations: Heme hemoglobin 6 white count 9 platelets 238 this morning hemoglobin 9.3 creatinine 0.6 to albumin 2.3 Previous testing: Hemoglobin was 8.2 on August 16 Assessment: -Acute on chronic GI bleed in a patient with known gastric ulcer disease. -Acute blood loss anemia from GI bleed,-symptomatic patient requiring 2 units of blood -Chronic lower extremity DVT with greater than the left leg compared to the right, for which patient has a [place] filter -Gastric ulcer disease -Icmew-fvwiyqfjc-zmgtfgf mass, workup done at [facility].-biopsy showing smooth muscle mass, -Solitary gallstone, asymptomatic -Coronary artery disease -COPD in an ex-smoker -Chronic fibromyalgia -GERD -Hyperlipidemia -Essential hypertension -Primary osteoarthritis -Hypothyroid -Chronic multiple sclerosis -Peripheral neuropathy both the lower extremity -Chronic urinary incontinence -Chronic gait dysfunction uses a walker/wheelchair -[place] filter placed on August 09 plan: Patient did receive 2 units of blood. Patient does not want any endoscopy. Did extend to the patient because she sleeps on the face but the right cerebral pillow being dependent does for the cheek is swollen up. No clinical signs of any infection. Did discuss with Dr. Le from GI. Repeat hemoglobin in the morning. Past Medical History Past Medical History: Coronary Artery Disease (CAD), Chest Pain / Angina, Heart Failure, COPD, Eye Disorder, Fibromyalgia, GERD/Reflux, Hyperlipidemia, Hypert ension, Myocardial Infarction ([place]), Musculoskeletal Disorder, Neurologic Disorder, Osteoarthritis (OA), Pneumonia, Respiratory Disorder, Skin Disorder, Thyroid Disorder, Vascular Disorder Additional Past Medical History / Comment(s): 11/2012 [place] with cardiac arrest/vtach, chronic respiratory failure-uses home O2 prn 2-3L/[place], tracheobronchitis, tricuspid regurgitation, multiple sclerosis, neuropathy bilateral legs/feet, chronic back pain, DDD, migraines, bilateral carpal tunnel syndrome, past L/R rib fractures, past L hip fracture with surgery, PUD with ulcer rupture with surgery, peritonitis, pancreatitis, IBS/ ulcerative colitis, chronic anemia, UTIs, urinary incontinence, endometriosis, hypothyroid, R cataract and L eye cataract forming again, PVD, L leg cellulitis, Last Myocardial Infarction Date:: 2012 History of Any Multi-Drug Resistant Organisms: ESBL Date of last positivie culture/infection: 02/18/2014 MDRO Source:: Blood and Urine E. coli ESBL Past Surgical History: AICD, Appendectomy, Heart Catheterization, Heart Catheterization With Stent, Orthopedic Surgery, Pacemaker Additional Past Surgical History / Comment(s): Cardioversion, Laparotomy for ruptured gastric ulcer, R foot fracture with surgery, L hip fracture with surgery-has plate and screw, EGD, colonoscopies with bening polypectomy. Past Anesthesia/Blood Transfusion Reactions: No Reported Reaction Additional Past Anesthesia/Blood Transfusion Reaction / Comment(s): Pt has received blood in past without reaction. Date of Last Stent Placement:: 11/2012 Type of Cardiac Device: Permanent Pacemaker, AICD Device Placement Date:: 2012 Past Psychological History: Anxiety, Bipolar, Depression, Panic Disorder Smoking Status: Former smoker Past Alcohol Use History: None Reported Past Drug Use History: None Reported - Past Family History Mother Family Medical History: Musculoskeletal Disorder Additional Family Medical History / Comment(s): MS Sister(s) Family Medical History: Myocardial Infarction ([place]) Additional Family Medical History / Comment(s): SISTER ALSO HAS MS Brother(s) Family Medical History: Musculoskeletal Disorder, Neurologic Disorder Additional Family Medical History / Comment(s): MS Father Additional Family Medical History / Comment(s): ETOH abuse, back surgery Medications and Allergies Home Medications Medication Instructions Recorded Confirmed Type Folic Acid 1 mg PO DAILY 04/08/14 09/06/19 History Thiamine [Vitamin B-1] 100 mg PO DAILY 04/13/15 09/06/19 History Cholecalciferol (Vitamin D3) 2,000 unit PO DAILY 09/27/18 09/06/19 History [Vitamin D3] Ferrous Sulfate [Iron (65 MG 325 mg PO BID 09/27/18 09/06/19 History Elemental)] Levothyroxine Sodium [Synthroid] 100 mcg PO DAILY 09/27/18 09/06/19 History Atorvastatin [Lipitor] 40 mg PO DAILY #30 tab 09/28/18 09/06/19 Rx Isosorbide Mononitrate ER [Imdur] 30 mg PO DAILY 02/06/19 09/06/19 History Albuterol Sulfate [Proair Hfa] 2 puff INHALATION RT-QID PRN 03/16/19 09/06/19 History Omeprazole 40 mg PO BID 03/16/19 09/06/19 History Gabapentin [Neurontin] 300 mg PO TID #9 cap 04/02/19 09/06/19 Rx Baclofen [Lioresal] 20 mg PO TID PRN 08/07/19 09/06/19 History Potassium Chloride ER [K-Dur 20] 20 meq PO DAILY 08/07/19 09/06/19 History Sucralfate [Carafate] 1 gm PO QID 08/07/19 09/06/19 History Cyanocobalamin [Vitamin B-12] 1,000 mcg PO DAILY #30 tab 08/11/19 09/06/19 Rx ALPRAZolam [Xanax] 0.25 mg PO TID PRN 09/06/19 09/06/19 History Albuterol Nebulized [Ventolin 2.5 mg INHALATION RT-Q4H PRN 09/06/19 09/06/19 History Nebulized] Amiodarone HCl [Pacerone] 100 mg PO DAILY 09/06/19 09/06/19 History Furosemide [Lasix] 20 mg PO DAILY 09/06/19 09/06/19 History Ipratropium-Albuterol Nebulize 3 ml INHALATION RT-Q4H 09/06/19 09/07/19 History [Duoneb 0.5 mg-3 mg/3 ml Soln] oxyCODONE-APAP 5-325MG [Percocet 1 tab PO Q8H PRN 09/06/19 09/06/19 History 5-325 mg] ARIPiprazole [Abilify] 10 mg PO DAILY 09/07/19 09/07/19 History Citalopram Hydrobromide [CeleXA] 20 mg PO DAILY 09/07/19 09/07/19 History Meclizine [Antivert] 25 mg PO QID PRN 09/07/19 09/07/19 History Allergies Allergy/AdvReac Type Severity Reaction Status Date / Time Penicillins Allergy Swelling Verified 09/06/19 20:11 Physical Exam Vitals: Vital Signs Temp Pulse Pulse Resp BP BP Pulse Ox 09/07/19 08:36 74 09/07/19 07:24 97.9 F 79 18 111/70 95 09/07/19 03:38 98.0 F 70 18 98/60 94 L 09/07/19 00:11 97.7 F 73 16 119/70 96 09/07/19 00:00 16 09/06/19 21:40 98.2 F 83 18 103/62 09/06/19 20:37 97.7 F 79 18 114/73 94 L 09/06/19 20:27 98.3 F 73 16 105/64 09/06/19 20:24 98.3 F 09/06/19 20:19 98.3 F 73 16 122/67 97 09/06/19 19:37 98.3 F 16 105/69 95 09/06/19 18:29 97.6 F 77 16 96/72 96 09/06/19 17:40 97.6 F 77 16 96/72 96 09/06/19 17:10 97.9 F 76 16 110/66 96 09/06/19 17:00 98.4 F 77 15 95/65 96 09/06/19 16:32 74 18 108/95 09/06/19 16:30 74 108/95 09/06/19 16:00 76 94/61 09/06/19 15:30 79 94/64 93 L 09/06/19 15:00 81 97/69 91 L 09/06/19 14:30 81 09/06/19 14:00 81 94/55 96 09/06/19 13:30 85 103/62 95 09/06/19 13:28 99.0 F 82 20 103/62 95 Intake and Output 09/06/19 09/07/19 09/07/19 22:59 06:59 14:59 Intake Total 870 310 Balance 870 310 Intake: Oral 250 Blood Product 620 310 Rc As-1 Unit 0 310 [id number] Rc As-1 Unit 310 [id number] Other: Voiding Method Diaper # Voids 1 Results CBC & Chem 7: 09/07/19 07:58 09/06/19 13:52 Labs: Abnormal Lab Results - Last 24 Hours (Table) 09/06/19 09/06/19 09/06/19 Range/Units 13:52 13:52 13:52 RBC 2.02 L (3.80-5.40) m/uL Hgb 6.0 L* D (11.4-16.0) gm/dL Hct 20.0 L (34.0-46.0) % MCHC 30.1 L (31.0-37.0) g/dL RDW 16.1 H (11.5-15.5) % Plt Count (150-450) k/uL Sodium 131 L (137-145) mmol/L Chloride 96 L (98-107) mmol/L Carbon Dioxide 32 H (22-30) mmol/L Calcium 7.7 L (8.4-10.2) mg/dL Total Protein 4.6 L (6.3-8.2) g/dL Albumin 2.3 L (3.5-5.0) g/dL Crossmatch See Detail 09/07/19 Range/Units 07:58 RBC 3.00 L (3.80-5.40) m/uL Hgb 9.3 L D (11.4-16.0) gm/dL Hct 28.6 L (34.0-46.0) % MCHC (31.0-37.0) g/dL RDW 15.7 H (11.5-15.5) % Plt Count 147 L (150-450) k/uL Sodium (137-145) mmol/L Chloride (98-107) mmol/L Carbon Dioxide (22-30) mmol/L Calcium (8.4-10.2) mg/dL Total Protein (6.3-8.2) g/dL Albumin (3.5-5.0) g/dL Crossmatch Thrombosis Risk Factor Assmnt - Choose All That Apply Each Factor Represents 1 point: Abnormal pulmonary function (COPD) Other Risk Factors: Yes Each Risk Factor Represents 2 Points: Age 61-74 years Each Risk Factor Represents 3 Points: Family history of DVT/PE, History of DVT/PE Other congenital or acquired thrombophilia - If yes, enter type in comment: No Thrombosis Risk Factor Assessment Total Risk Factor Score: 9 Thrombosis Risk Factor Assessment Level: High Risk
--- NOTE | 2019-09-08 00:59 | P.CONS ---
History of Present Illness - Reason for Consult Consult date: 09/07/19 Anemia Requesting physician: [facility] - Chief Complaint Face swelling - History of Present Illness 63-year-old female with multiple medical comorbidities including coronary artery disease, COPD, fibromyalgia, GERD, hyperlipidemia, hypertension, osteoarthritis, hypothyroidism, urinary incontinence, DVT and multiple sclerosis who presented to the hospital due to complaints over possible swelling of the right side of her face. Since that time symptoms have resolved. Patient was found to be anemic with a hemoglobin of 6 on presentation status post 2 units of PRBCs. The patient denies any gross bleeding from the rectum but does report dark stool on iron supplementation. She denies any abdominal pain. Diet has been good with good oral intake. The patient has previously been noted to have GI bleeding from a gastric ulcer and was found to have a gastric bypass on previous EGD however was sent to [facility] where biopsy of the mass was negative fo r any malignancy and she reports she requires no further follow-up after the biopsy. Currently she is seen lying in bed with no other acute complaints. Review of Systems REVIEW OF SYSTEMS: CONSTITUTIONAL: Denies any fevers, chills, weight change or fatigue. CARDIOVASCULAR: Denies any chest pain, palpitations high or low blood pressures RESPIRATORY: Denies any shortness of breath, hemoptysis or cough. GENITOURINARY: No dysuria or hematuria, has a history of urinary incontinence. MUSCULOSKELETAL: No weakness reported. SKIN: Denies any new rashes or lesions, jaundice or pallor. PSYCHIATRIC: Denies any depression or anxiety. NEUROLOGY: Denies headache, denies any new focal deficits, did report right facial swelling improved since presentation. EARS/NOSE/THROAT: No recent hearing change, congestion, nasal discharge or sore throat. EYES: No pain in eyes, discharge or change in vision. GASTROINTESTINAL: As per HPI. Past Medical History Past Medical History: Coronary Artery Disease (CAD), Chest Pain / Angina, Heart Failure, COPD, Eye Disorder, Fibromyalgia, GERD/Reflux, Hyperlipidemia, Hypertension, Myocardial Infarction ([place]), Musculoskeletal Disorder, Neurologic Disorder, Osteoarthritis ([place]), Pneumonia, Respiratory Disorder, Skin Disorder, Thyroid Disorder, Vascular Disorder Additional Past Medical History / Comment(s): 11/2012 [place] with cardiac arres t/vtach, chronic respiratory failure-uses home O2 prn 2-3L/[place], tracheobronchitis, tricuspid regurgitation, multiple sclerosis, neuropathy bilateral legs/feet, chronic back pain, DDD, migraines, bilateral carpal tunnel syndrome, past L/R rib fractures, past L hip fracture with surgery, PUD with ulcer rupture with surgery, peritonitis, pancreatitis, IBS/ ulcerative colitis, chronic anemia, UTIs, urinary incontinence, endometriosis, hypothyroid, R cataract and L eye cataract forming again, PVD, L leg cellulitis, Last Myocardial Infarction Date:: 2012 History of Any Multi-Drug Resistant Organisms: ESBL Year Discovered:: 02/18/2014 MDRO Source:: Blood and Urine E. coli ESBL Past Surgical History: AICD, Appendectomy, Heart Catheterization, Heart Catheterization With Stent, Orthopedic Surgery, Pacemaker Additional Past Surgical History / Comment(s): Cardioversion, Laparotomy for ruptured gastric ulcer, R foot fracture with surgery, L hip fracture with surgery-has plate and screw, EGD, colonoscopies with bening polypectomy. Past Anesthesia/Blood Transfusion Reactions: No Reported Reaction Additional Past Anesthesia/Blood Transfusion Reaction / Comm: Pt has received blood in past without reaction. Date of Last Stent Placement:: 11/2012 Type of Cardiac Device: Permanent Pacemaker, AICD Device Placement Date:: 2012 Past Psychological History: Anxiety, Bipolar, Depression, Panic Disorder Smoking Status: Former smoker Past Alcohol Use History: None Reported Past Drug Use History: None Reported - Past Family History Mother Family Medical History: Musculoskeletal Disorder Additional Family Medical History / Comment(s): MS Sister(s) Family Medical History: Myocardial Infarction ([place]) Additional Family Medical History / Comment(s): SISTER ALSO HAS MS Brother(s) Family Medical History: Musculoskeletal Disorder, Neurologic Disorder Additional Family Medical History / Comment(s): MS Father Additional Family Medical History / Comment(s): ETOH abuse, back surgery Medications and Allergies Home Medications Medication Instructions Recorded Confirmed Type Folic Acid 1 mg PO DAILY 04/08/14 09/06/19 History Thiamine [Vitamin B-1] 100 mg PO DAILY 04/13/15 09/06/19 History Cholecalciferol (Vitamin D3) 2,000 unit PO DAILY 09/27/18 09/06/19 History [Vitamin D3] Ferrous Sulfate [Iron (65 MG 325 mg PO BID 09/27/18 09/06/19 History Elemental)] Levothyroxine Sodium [Synthroid] 100 mcg PO DAILY 09/27/18 09/06/19 History Atorvastatin [Lipitor] 40 mg PO DAILY #30 tab 09/28/18 09/06/19 Rx Isosorbide Mononitrate ER [Imdur] 30 mg PO DAILY 02/06/19 09/06/19 History Albuterol Sulfate [Proair Hfa] 2 puff INHALATION RT-QID PRN 03/16/19 09/06/19 History Omeprazole 40 mg PO BID 03/16/19 09/06/19 History Gabapentin [Neurontin] 300 mg PO TID #9 cap 04/02/19 09/06/19 Rx Baclofen [Lioresal] 20 mg PO TID PRN 08/07/19 09/06/19 History Potassium Chloride ER [K-Dur 20] 20 meq PO DAILY 08/07/19 09/06/19 History Sucralfate [Carafate] 1 gm PO QID 08/07/19 09/06/19 History Cyanocobalamin [Vitamin B-12] 1,000 mcg PO DAILY #30 tab 08/11/19 09/06/19 Rx ALPRAZolam [Xanax] 0.25 mg PO TID PRN 09/06/19 09/06/19 History Albuterol Nebulized [Ventolin 2.5 mg INHALATION RT-Q4H PRN 09/06/19 09/06/19 History Nebulized] Amiodarone HCl [Pacerone] 100 mg PO DAILY 09/06/19 09/06/19 History Furosemide [Lasix] 20 mg PO DAILY 09/06/19 09/06/19 History Ipratropium-Albuterol Nebulize 3 ml INHALATION RT-Q4H 09/06/19 09/07/19 History [Duoneb 0.5 mg-3 mg/3 ml Soln] oxyCODONE-APAP 5-325MG [Percocet 1 tab PO Q8H PRN 09/06/19 09/06/19 History 5-325 mg] ARIPiprazole [Abilify] 10 mg PO DAILY 09/07/19 09/07/19 History Citalopram Hydrobromide [CeleXA] 20 mg PO DAILY 09/07/19 09/07/19 History Meclizine [Antivert] 25 mg PO QID PRN 09/07/19 09/07/19 History Allergies Allergy/AdvReac Type Severity Reaction Status Date / Time Penicillins Allergy Swelling Verified 09/06/19 20:11 Physical Exam Vitals: Vital Signs Temp Pulse Pulse Resp BP BP Pulse Ox 09/07/19 08:47 80 09/07/19 08:36 74 09/07/19 07:24 97.9 F 79 18 111/70 95 09/07/19 03:38 98.0 F 70 18 98/60 94 L 09/07/19 00:11 97.7 F 73 16 119/70 96 09/07/19 00:00 16 09/06/19 21:40 98.2 F 83 18 103/62 09/06/19 20:37 97.7 F 79 18 114/73 94 L 09/06/19 20:27 98.3 F 73 16 105/64 09/06/19 20:24 98.3 F 09/06/19 20:19 98.3 F 73 16 122/67 97 09/06/19 19:37 98.3 F 16 105/69 95 09/06/19 18:29 97.6 F 77 16 96/72 96 09/06/19 17:40 97.6 F 77 16 96/72 96 09/06/19 17:10 97.9 F 76 16 110/66 96 09/06/19 17:00 98.4 F 77 15 95/65 96 09/06/19 16:32 74 18 108/95 09/06/19 16:30 74 108/95 09/06/19 16:00 76 94/61 09/06/19 15:30 79 94/64 93 L 09/06/19 15:00 81 97/69 91 L Intake and Output 09/06/19 09/07/19 09/07/19 22:59 06:59 14:59 Intake Total 870 310 Balance 870 310 Intake: Oral 250 Blood Product 620 310 Rc As-1 Unit 0 310 [id number] Rc As-1 Unit 310 [id number] Other: Voiding Method Diaper # Voids 1 On physical examination, patient appears comfortable in no apparent distress. HEAD: Normocephalic, atraumatic. EYES: No scleral icterus. No conjunctival injection. MOUTH: No lesions, tongue midline. NECK: Trachea midline, no gross abnormalities. CHEST: Decreased air entry in all lung perea. HEART: S1-S2 appreciated. ABDOMEN: Soft, obese. Bowel sounds are positive. No organomegaly. No guarding or rigidity. EXTREMITIES: No pedal edema. SKIN: No rashes, no jaundice. NEUROLOGIC: Alert and oriented x3. Results CBC & Chem 7: 09/07/19 07:58 09/06/19 13:52 Labs: Abnormal Lab Results - Last 24 Hours (Table) 09/06/19 09/06/19 09/06/19 Range/Units 13:52 13:52 13:52 RBC 2.02 L (3.80-5.40) m/uL Hgb 6.0 L* D (11.4-16.0) gm/dL Hct 20.0 L (34.0-46.0) % MCHC 30.1 L (31.0-37.0) g/dL RDW 16.1 H (11.5-15.5) % Plt Count (150-450) k/uL Sodium 131 L (137-145) mmol/L Chloride 96 L (98-107) mmol/L Carbon Dioxide 32 H (22-30) mmol/L Calcium 7.7 L (8.4-10.2) mg/dL Total Protein 4.6 L (6.3-8.2) g/dL Albumin 2.3 L (3.5-5.0) g/dL Crossmatch See Detail 09/07/19 Range/Units 07:58 RBC 3.00 L (3.80-5.40) m/uL Hgb 9.3 L D (11.4-16.0) gm/dL Hct 28.6 L (34.0-46.0) % MCHC (31.0-37.0) g/dL RDW 15.7 H (11.5-15.5) % Plt Count 147 L (150-450) k/uL Sodium (137-145) mmol/L Chloride (98-107) mmol/L Carbon Dioxide (22-30) mmol/L Calcium (8.4-10.2) mg/dL Total Protein (6.3-8.2) g/dL Albumin (3.5-5.0) g/dL Crossmatch Assessment and Plan (1) Anemia Narrative/Plan: 64-year-old female with multiple medical comorbidities including prior GI bleed who presented due to facial swelling found to be anemic with a hemoglobin of 6 currently 9.3 after 2 units of PRBCs. Currently denying any signs or symptoms of GI bleeding, she does report dark stool on iron supplementation. No abdominal pain, decreased oral intake or nausea or vomiting. Previously on endoscopic evaluation did have a gastric mass found to be benign on biopsy. Patient is not interested in any further endoscopic evaluation at this time. Current Visit: Yes Status: Acute Code(s): D64.9 - ANEMIA, UNSPECIFIED SNOMED Code(s): 496191493 Plan: Supportive care Okay for diet Continue to monitor hemoglobin and hematocrit and transfuse as needed Continue Protonix therapy Avoid NSAID use Thank you for allowing us to participate in the care of the patient
[2019-09-08] MEDS: LEVOTHYROXINE 100 MCG TAB PO SCH (05:19)
[2019-09-08] MEDS: AMIODARONE 100 MG TAB PO SCH (07:37)
[2019-09-08] MEDS: FUROSEMIDE 20 MG TAB PO SCH (07:37)
[2019-09-08] MEDS: SUCRALFATE 1 GM TAB PO SCH ×2 (07:37→12:18)
[2019-09-08] MEDS: FERROUS SULFATE 325 MG TAB PO SCH (07:37)
[2019-09-08] MEDS: BACLOFEN 10 MG TAB PO PRN (07:38)
[2019-09-08] MEDS: FOLIC ACID 1 MG TAB PO SCH (07:38)
[2019-09-08] MEDS: CHOLECALCIFEROL 1,000 UNIT TAB PO SCH (07:38)
[2019-09-08] MEDS: POTASSIUM CHLORIDE ER 20 MEQ TAB.ER PO SCH (07:38)
[2019-09-08] MEDS: oxyCODONE-APAP 5-325MG 1 EACH TAB PO PRN (07:38)
[2019-09-08] MEDS: THIAMINE 100 MG TAB PO SCH (07:38)
[2019-09-08] MEDS: GABAPENTIN 300 MG CAP PO SCH (07:39)
[2019-09-08] MEDS: CITALOPRAM HYDROBROMIDE 20 MG TAB PO SCH (07:39)
[2019-09-08] MEDS: ISOSORBIDE MONONITRATE ER 30 MG TAB.ER.24H PO SCH (07:39)
[2019-09-08] MEDS: ATORVASTATIN 40 MG TAB PO SCH (07:39)
[2019-09-08] MEDS: ARIPiprazole 10 MG TAB PO SCH (07:39)
[2019-09-08] MEDS: PANTOPRAZOLE 40 MG TABLET PO SCH (07:39)
[2019-09-08 08:09] VITALS: BP 75/46; RESP 16; TEMP 98.6
[2019-09-08] MEDS: IPRATROPIUM-ALBUTEROL 3 ML NEB INHALATION SCH ×2 (09:27→12:45)
[2019-09-08 09:28] VITALS: PULSE 80
[2019-09-08] MEDS: CYANOCOBALAMIN 500 MCG TAB PO SCH (10:19)
[2019-09-08] MEDS: SODIUM CHLORIDE 0.9% 1,000 ML IV SCH (12:17)
[2019-09-08 12:28] LABS: Anisocytosis Slight; HCT 24.9 % (34.0-46.0); Hypochromasia Marked; MCH 29.1 pg (25.0-35.0); MCV 96.7 fL (80.0-100.0); Macrocytosis Slight; Mean Platelet Volume 8.4; Platelet Count 123 k/uL (150-450); Poikilocytosis Moderate; RBC 2.57 m/uL (3.80-5.40); RDW 16.1 % (11.5-15.5); WBC 9.1 k/uL (3.8-10.6)
[2019-09-08 12:35] LABS: HGB 7.5 gm/dL (11.4-16.0)
--- NOTE | 2019-09-08 21:55 | P.DS ---
Providers Date of admission: 09/06/19 17:02 Expected date of discharge: 09/08/19 Attending physician: Adolfo Bay Consults: 09/06/19 17:04 Consult Physician Stat Consulting Provider: Cameron Quiors Consult Reason/Comments: Acute anemia, history of abdominal mass Do you want consulting provider notified?: Yes Primary care physician: Alexei Vera MD Hospital Course: Chief Complaint: Puffy right side of the face history of presenting complaint: This is a 63-year-old patient who follows with visiting physicians Dr. Vera.. Normally uses a wheelchair or a walker to get about. Chronic stable medical conditions include, coronary artery disease, COPD in an ex-smoker, chronic fibromyalgia, GERD, hyperlipidemia, essential hypertension, osteoarthritis, hypothyroid, chronic multiple sclerosis, peripheral neuropathy lower extremity, chronic urinary incontinence. Patient also was worked up at [facility] for a gastric greater curvature mass which eventually showed up to be normal smooth muscle cells. Also's chronic intermittent GI bleed from a gastric ulcer. Patient admitted to the hospital on August 06 with a diagnosis of bilateral lower extremity DVT. Could not tolerate IV heparin because of intermittent dark stools for some time. Did require blood transfusion. [place] filter was placed. Patient declined any endoscopy. Patient now sent in by the family doctor because of noticing puffiness in the right side of the face. It may be noted that patient always sleeps in the right part of the head tilted to the right cheek on the pillow. Patient was found to be anemic in the ER. It hemoglobin of 6. 2 units of blood was ordered. There is no pain in the right cheek. No change in vision or headache or fever or chills. Patient continues to get intermittent dark stools. Patient does not want any endoscopy. Yet again discussed with the patient. She does not for any endoscopy. It is expected that she will drop her hemoglobin again. She understands the same. Options anyways a limited. Consultation: Dr. Le from GI Physical examination: VITAL SIGNS: 98.6, 77, 16, 75/46, GENERAL: Laying in bed, awake EYES: Pupils equal. Conjunctiva pale HEENT: External appearance of nose and ears normal, oral cavity grossly normal. Slight puffiness of the right side cheek, with no tenderness-patient has no skin NECK: JVD not raised; masses not palpable. HEART: First and second heart sounds are normal; mild edema. LUNGS: Respiratory rate increased, decreased breath sounds. ABDOMEN: Soft, no tenderness, no guarding or rigidity, liver spleen not palpable, no masses palpable. LYMPHATICS: No lymph nodes palpable in the axilla and neck. PSYCH: Alert and oriented x3; mood and affect normal. Investigations: Hemoglobin 7.5 Previous testing: Hemoglobin was 8.2 on August 16 Assessment: -Acute on chronic GI bleed in a patient with known gastric ulcer disease. -Acute blood loss anemia from GI bleed,-symptomatic patient requiring 2 units of blood -Chronic lower extremity DVT with greater than the left leg compared to the right, for which patient has a [place] filter -Gastric ulcer disease -Gcnfe-sqaghlwef-pdrjdri mass, workup done at [facility].-biopsy showing smooth muscle mass, -Solitary gallstone, asymptomatic -Coronary artery disease -COPD in an ex-smoker -Chronic fibromyalgia -GERD -Hyperlipidemia -Essential hypertension -Primary osteoarthritis -Hypothyroid -Chronic multiple sclerosis -Peripheral neuropathy both the lower extremity -Chronic urinary incontinence -Chronic gait dysfunction uses a walker/wheelchair -[place] filter placed on August 09 Disposition: Home Patient Condition at Discharge: Fair Plan - Discharge Summary New Discharge Prescriptions: Continue Folic Acid 1 mg PO DAILY Thiamine [Vitamin B-1] 100 mg PO DAILY Cholecalciferol (Vitamin D3) [Vitamin D3] 2,000 unit PO DAILY Ferrous Sulfate [Iron (65 MG Elemental)] 325 mg PO BID Levothyroxine Sodium [Synthroid] 100 mcg PO DAILY Atorvastatin [Lipitor] 40 mg PO DAILY #30 tab Isosorbide Mononitrate ER [Imdur] 30 mg PO DAILY Omeprazole 40 mg PO BID Albuterol Sulfate [Proair Hfa] 2 puff INHALATION RT-QID PRN PRN Reason: Shortness Of Breath Gabapentin [Neurontin] 300 mg PO TID #9 cap Potassium Chloride ER [K-Dur 20] 20 meq PO DAILY Baclofen [Lioresal] 20 mg PO TID PRN PRN Reason: Pain Cyanocobalamin [Vitamin B-12] 1,000 mcg PO DAILY #30 tab Albuterol Nebulized [Ventolin Nebulized] 2.5 mg INHALATION RT-Q4H PRN PRN Reason: Shortness Of Breath Amiodarone HCl [Pacerone] 100 mg PO DAILY Furosemide [Lasix] 20 mg PO DAILY Ipratropium-Albuterol Nebulize [Duoneb 0.5 mg-3 mg/3 ml Soln] 3 ml INHALATION RT-Q4H oxyCODONE-APAP 5-325MG [Percocet 5-325 mg] 1 tab PO Q8H PRN PRN Reason: Pain ALPRAZolam [Xanax] 0.25 mg PO TID PRN PRN Reason: Anxiety ARIPiprazole [Abilify] 10 mg PO DAILY Citalopram Hydrobromide [CeleXA] 20 mg PO DAILY Meclizine [Antivert] 25 mg PO QID PRN PRN Reason: Vertigo Discontinued Sucralfate [Carafate] 1 gm PO QID Discharge Medication List Folic Acid 1 mg PO DAILY 04/08/14 [History] Thiamine [Vitamin B-1] 100 mg PO DAILY 04/13/15 [History] Cholecalciferol (Vitamin D3) [Vitamin D3] 2,000 unit PO DAILY 09/27/18 [History] Ferrous Sulfate [Iron (65 MG Elemental)] 325 mg PO BID 09/27/18 [History] Levothyroxine Sodium [Synthroid] 100 mcg PO DAILY 09/27/18 [History] Atorvastatin [Lipitor] 40 mg PO DAILY #30 tab 09/28/18 [Rx] Isosorbide Mononitrate ER [Imdur] 30 mg PO DAILY 02/06/19 [History] Albuterol Sulfate [Proair Hfa] 2 puff INHALATION RT-QID PRN 03/16/19 [History] Omeprazole 40 mg PO BID 03/16/19 [History] Gabapentin [Neurontin] 300 mg PO TID #9 cap 04/02/19 [Rx] Baclofen [Lioresal] 20 mg PO TID PRN 08/07/19 [History] Potassium Chloride ER [K-Dur 20] 20 meq PO DAILY 08/07/19 [History] Cyanocobalamin [Vitamin B-12] 1,000 mcg PO DAILY #30 tab 08/11/19 [Rx] ALPRAZolam [Xanax] 0.25 mg PO TID PRN 09/06/19 [History] Albuterol Nebulized [Ventolin Nebulized] 2.5 mg INHALATION RT-Q4H PRN 09/06/19 [History] Amiodarone HCl [Pacerone] 100 mg PO DAILY 09/06/19 [History] Furosemide [Lasix] 20 mg PO DAILY 09/06/19 [History] Ipratropium-Albuterol Nebulize [Duoneb 0.5 mg-3 mg/3 ml Soln] 3 ml INHALATION RT-Q4H 09/06/19 [History] oxyCODONE-APAP 5-325MG [Percocet 5-325 mg] 1 tab PO Q8H PRN 09/06/19 [History] ARIPiprazole [Abilify] 10 mg PO DAILY 09/07/19 [History] Citalopram Hydrobromide [CeleXA] 20 mg PO DAILY 09/07/19 [History] Meclizine [Antivert] 25 mg PO QID PRN 09/07/19 [History] Follow up Appointment(s)/Referral(s): Alexei Vera MD [Primary Care Provider] - 1-2 days (office closed at time of discharge. Please call to amke appointment) Patient Instructions/Handouts: Anemia (DC) Activity/Diet/Wound Care/Special Instructions: cbc- 5 days Discharge Disposition: HOME SELF-CARE
--- NOTE | 2019-09-08 22:55 | P.PN ---
Subjective Progress Note Date: 09/08/19 Principal diagnosis: Anemia Patient is seen lying in bed reporting that she is tolerating diet. No abdominal pain or signs or symptoms of GI bleed reported. Objective - Vital Signs Vital signs: Vital Signs Temp 98.6 F 09/08/19 07:00 Pulse 80 09/08/19 09:35 Resp 16 09/08/19 07:00 BP 75/46 09/08/19 07:00 Pulse Ox 96 09/08/19 07:00 Intake & Output 09/07/19 09/08/19 09/08/19 18:59 06:59 18:59 Intake Total 250 Balance 250 Intake: Oral 250 Other: # Voids 3 1 # Bowel Movements 1 - Exam On physical examination, patient appears comfortable in no apparent distress. HEAD: Normocephalic, atraumatic. EYES: No scleral icterus. No conjunctival injection. MOUTH: No lesions, tongue midline. NECK: Trachea midline, no gross abnormalities. ABDOMEN: Soft. Bowel sounds are positive. No organomegaly. No guarding or rigidity. EXTREMITIES: No pedal edema. SKIN: No rashes, no jaundice. NEUROLOGIC: Alert and oriented x3. No focal deficits. - Labs CBC & Chem 7: 09/08/19 11:50 09/06/19 13:52 Assessment and Plan (1) Anemia Narrative/Plan: 64-year-old female with multiple medical comorbidities including prior GI bleed who presented due to facial swelling found to be anemic with a hemoglobin of 6 currently 9.3 after 2 units of PRBCs. Currently denying any signs or symptoms of GI bleeding, she does report dark stool on iron supplementation. No abdominal pain, decreased oral intake or nausea or vomiting. Previously on endoscopic evaluation did have a gastric mass found to be benign on biopsy. Patient is not interested in any further endoscopic evaluation at this time. Status: Acute Code(s): D64.9 - ANEMIA, UNSPECIFIED SNOMED Code(s): 009345493 Plan: Supportive care Okay for diet Continue to monitor hemoglobin and hematocrit and transfuse as needed Continue Protonix therapy Avoid NSAID use Thank you for allowing us to participate in the care of the patient
== END 2019-09-08 14:15 | disposition home or self-care (01) ==
LOC: EC 13:23 → 4SSUR 17:02 → INTOOBSV 17:02 → UNDODISIN 09-08 14:15
PROVIDERS: ADMIT Hospitalist; ATTEND Hospitalist
PROC: 30233N1 Transfusion of Nonautologous Red Blood Cells into Peripheral Vein, Percutaneous Approach (ICD-10-PCS; principal; 2019-09-06)
DX: D62 Acute posthemorrhagic anemia (principal); Z03.818 Encounter for observation for suspected exposure to other biological agents ruled out; K25.4 Chronic or unspecified gastric ulcer with hemorrhage; J96.10 Chronic respiratory failure, unspecified whether with hypoxia or hypercapnia; I82.503 Chronic embolism and thrombosis of unspecified deep veins of lower extremity, bilateral; K51.90 Ulcerative colitis, unspecified, without complications; I95.9 Hypotension, unspecified; I11.0 Hypertensive heart disease with heart failure; I50.9 Heart failure, unspecified; Z99.81 Dependence on supplemental oxygen; Z86.74 Personal history of sudden cardiac arrest; J44.9 Chronic obstructive pulmonary disease, unspecified; F31.9 Bipolar disorder, unspecified; F41.9 Anxiety disorder, unspecified; I73.9 Peripheral vascular disease, unspecified; G35 Multiple sclerosis; M79.7 Fibromyalgia; M19.91 Primary osteoarthritis, unspecified site; G89.29 Other chronic pain; M54.9 Dorsalgia, unspecified; K21.9 Gastro-esophageal reflux disease without esophagitis; I25.10 Atherosclerotic heart disease of native coronary artery without angina pectoris; H26.9 Unspecified cataract; E78.5 Hyperlipidemia, unspecified; R32 Unspecified urinary incontinence; I07.1 Rheumatic tricuspid insufficiency; E03.9 Hypothyroidism, unspecified; G56.03 Carpal tunnel syndrome, bilateral upper limbs; G43.909 Migraine, unspecified, not intractable, without status migrainosus; K80.20 Calculus of gallbladder without cholecystitis without obstruction; F41.0 Panic disorder [episodic paroxysmal anxiety]; K31.9 Disease of stomach and duodenum, unspecified; G62.9 Polyneuropathy, unspecified; I25.2 Old myocardial infarction; Z16.12 Extended spectrum beta lactamase (ESBL) resistance; R26.9 Unspecified abnormalities of gait and mobility; Z79.890 Hormone replacement therapy; Z79.899 Other long term (current) drug therapy; Z87.01 Personal history of pneumonia (recurrent); Z87.440 Personal history of urinary (tract) infections; Z87.19 Personal history of other diseases of the digestive system; Z95.5 Presence of coronary angioplasty implant and graft; Z90.49 Acquired absence of other specified parts of digestive tract; Z95.810 Presence of automatic (implantable) cardiac defibrillator; Z87.81 Personal history of (healed) traumatic fracture; Z98.890 Other specified postprocedural states; Z96.7 Presence of other bone and tendon implants; Z95.828 Presence of other vascular implants and grafts; Z53.29 Procedure and treatment not carried out because of patient's decision for other reasons; Z86.010 Personal history of colon polyps; Z87.891 Personal history of nicotine dependence; Z88.0 Allergy status to penicillin; Z82.49 Family history of ischemic heart disease and other diseases of the circulatory system; Z82.69 Family history of other diseases of the musculoskeletal system and connective tissue; Z81.1 Family history of alcohol abuse and dependence
CPT/HCPCS: 96360 ×2; 96361 ×4; 36430; 99285; 36415; 94640 ×3; 93005; 86900; 86901; 80053; 83605; 85025 ×2; 85027; 85610; 85730; 86850; 86920; G0378 ×2; P9016; U0003

== ENCOUNTER 2019-09-10 04:46 | Emergency (ER) | payer OTHER ==
--- NOTE | 2019-09-10 05:26 | ED ---
General Adult HPI - General Chief complaint: Weakness Stated complaint: Numbness Time Seen by Provider: 09/10/19 05:13 Source: patient, EMS Mode of arrival: EMS Limitations: physical limitation - History of Present Illness Initial comments: This patient is 64-year-old woman who complains of having numbness to all 4 extremities. Patient states that this started approximately 2 hours ago. She had just taken a dose of her pain medication perhaps an hour prior. Patient denies weakness. No change in vision, speech or swallowing. Onset/Timin -: minutes(s) Location: left, right, upper extremity, lower extremity Consistency: constant Improves with: none Worsens with: none - Related Data Home Medications Medication Instructions Recorded Confirmed Folic Acid 1 mg PO DAILY 04/08/14 09/06/19 Thiamine [Vitamin B-1] 100 mg PO DAILY 04/13/15 09/06/19 Cholecalciferol (Vitamin D3) 2,000 unit PO DAILY 09/27/18 09/06/19 [Vitamin D3] Ferrous Sulfate [Iron (65 MG 325 mg PO BID 09/27/18 09/06/19 Elemental)] Levothyroxine Sodium [Synthroid] 100 mcg PO DAILY 09/27/18 09/06/19 Isosorbide Mononitrate ER [Imdur] 30 mg PO DAILY 02/06/19 09/06/19 Albuterol Sulfate [Proair Hfa] 2 puff INHALATION RT-QID PRN 03/16/19 09/06/19 Omeprazole 40 mg PO BID 03/16/19 09/06/19 Baclofen [Lioresal] 20 mg PO TID PRN 08/07/19 09/06/19 Potassium Chloride ER [K-Dur 20] 20 meq PO DAILY 08/07/19 09/06/19 ALPRAZolam [Xanax] 0.25 mg PO TID PRN 09/06/19 09/06/19 Albuterol Nebulized [Ventolin 2.5 mg INHALATION RT-Q4H PRN 09/06/19 09/06/19 Nebulized] Amiodarone HCl [Pacerone] 100 mg PO DAILY 09/06/19 09/06/19 Furosemide [Lasix] 20 mg PO DAILY 09/06/19 09/06/19 Ipratropium-Albuterol Nebulize 3 ml INHALATION RT-Q4H 09/06/19 09/07/19 [Duoneb 0.5 mg-3 mg/3 ml Soln] oxyCODONE-APAP 5-325MG [Percocet 1 tab PO Q8H PRN 09/06/19 09/06/19 5-325 mg] ARIPiprazole [Abilify] 10 mg PO DAILY 09/07/19 09/07/19 Citalopram Hydrobromide [CeleXA] 20 mg PO DAILY 09/07/19 09/07/19 Meclizine [Antivert] 25 mg PO QID PRN 09/07/19 09/07/19 Previous Rx's Medication Instructions Recorded Atorvastatin [Lipitor] 40 mg PO DAILY #30 tab 09/28/18 Gabapentin [Neurontin] 300 mg PO TID #9 cap 04/02/19 Cyanocobalamin [Vitamin B-12] 1,000 mcg PO DAILY #30 tab 08/11/19 Allergies Allergy/AdvReac Type Severity Reaction Status Date / Time Penicillins Allergy Swelling Verified 09/06/19 20:11 Review of Systems ROS Statement: Those systems with pertinent positive or pertinent negative responses have been documented in the HPI. ROS Other: All systems not noted in ROS Statement are negative. Constitutional: Denies: fever, chills Respiratory: Denies: cough, dyspnea Cardiovascular: Denies: chest pain, palpitations, edema, syncope Gastrointestinal: Denies: abdominal pain, vomiting, diarrhea Genitourinary: Denies: dysuria, hematuria Musculoskeletal: Reports: back pain (Chronic) Skin: Denies: rash Neurological: Reports: numbness. Denies: headache, weakness, confusion Past Medical History Past Medical History: Coronary Artery Disease (CAD), Chest Pain / Angina, Heart Failure, COPD, Eye Disorder, Fibromyalgia, GERD/Reflux, Hyperlipidemia, Hypertension, Myocardial Infarction (MT), Musculoskeletal Disorder, Neurologic Disorder, Osteoarthritis (OA), Pneumonia, Respiratory Disorder, Skin Disorder, Thyroid Disorder, Vascular Disorder Additional Past Medical History / Comment(s): 11/2012 MT with cardiac arrest/vtach, chronic respiratory failure-uses home O2 prn 2-3L/NC, tracheobronchitis, tricuspid regurgitation, multiple sclerosis, neuropathy bi lateral legs/feet, chronic back pain, DDD, migraines, bilateral carpal tunnel syndrome, past L/R rib fractures, past L hip fracture with surgery, PUD with ulcer rupture with surgery, peritonitis, pancreatitis, IBS/ ulcerative colitis, chronic anemia, UTIs, urinary incontinence, endometriosis, hypothyroid, R cataract and L eye cataract forming again, PVD, L leg cellulitis, Last Myocardial Infarction Date:: 2012 History of Any Multi-Drug Resistant Organisms: ESBL Date of last positivie culture/infection: 02/18/2014 MDRO Source:: Blood and Urine E. coli ESBL Past Surgical History: AICD, Appendectomy, Heart Catheterization, Heart Catheterization With Stent, Orthopedic Surgery, Pacemaker Additional Past Surgical History / Comment(s): Cardioversion, Laparotomy for ruptured gastric ulcer, R foot fracture with surgery, L hip fracture with surgery-has plate and screw, EGD, colonoscopies with bening polypectomy. Past Anesthesia/Blood Transfusion Reactions: No Reported Reaction Additional Past Anesthesia/Blood Transfusion Reaction / Comment(s): Pt has received blood in past without reaction. Date of Last Stent Placement:: 11/2012 Type of Cardiac Device: Permanent Pacemaker, AICD Device Placement Date:: 2012 Past Psychological History: Anxiety, Bipolar, Depression, Panic Disorder Smoking Status: Former smoker Past Alcohol Use History: None Reported Past Drug Use History: None Reported - Past Family History Mother Family Medical History: Musculoskeletal Disorder Additional Family Medical History / Comment(s): MS Sister(s) Family Medical History: Myocardial Infarction (MT) Additional Family Medical History / Comment(s): SISTER ALSO HAS MS Brother(s) Family Medical History: Musculoskeletal Disorder, Neurologic Disorder Additional Family Medical History / Comment(s): MS Father Additional Family Medical History / Comment(s): ETOH abuse, back surgery General Exam Limitations: physical limitation General appearance: alert, in no apparent distress Head exam: Present: atraumatic, normocephalic Eye exam: Present: normal appearance, PERRL, EOMI. Absent: scleral icterus, co njunctival injection ENT exam: Present: mucous membranes dry Neck exam: Present: normal inspection Respiratory exam: Present: normal lung sounds bilaterally. Absent: respiratory distress, wheezes, rales, rhonchi, stridor Cardiovascular Exam: Present: regular rate, normal rhythm, normal heart sounds. Absent: systolic murmur, diastolic murmur, rubs, gallop GI/Abdominal exam: Present: soft. Absent: distended, tenderness, guarding, rebound Extremities exam: Present: normal inspection, normal capillary refill. Absent: pedal edema, calf tenderness Neurological exam: Present: alert, CN II-XII intact. Absent: motor sensory deficit Skin exam: Present: warm, dry, intact, normal color. Absent: rash Course Vital Signs 09/10/19 09/10/19 09/10/19 04:48 06:00 07:29 Temperature 98.0 F Pulse Rate 80 75 75 Respiratory 16 12 18 Rate Blood Pressure 116/78 100/74 115/69 O2 Sat by Pulse 95 92 L 99 Oximetry Medical Decision Making - Lab Data Result diagrams: 09/10/19 05:47 09/10/19 05:47 Lab Results 09/10/19 09/10/19 09/10/19 Range/Units 05:47 05:47 05:47 WBC 9.0 (3.8-10.6) k/uL RBC 2.46 L (3.80-5.40) m/uL Hgb 7.5 L (11.4-16.0) gm/dL Hct 24.8 L (34.0-46.0) % MCV 100.7 H (80.0-100.0) fL MCH 30.4 (25.0-35.0) pg MCHC 30.2 L (31.0-37.0) g/dL RDW 17.2 H (11.5-15.5) % Plt Count 151 (150-450) k/uL Neutrophils % 70 % Lymphocytes % 20 % Monocytes % 5 % Eosinophils % 3 % Basophils % 0 % Neutrophils # 6.3 (1.3-7.7) k/uL Lymphocytes # 1.8 (1.0-4.8) k/uL Monocytes # 0.5 (0-1.0) k/uL Eosinophils # 0.3 (0-0.7) k/uL Basophils # 0.0 (0-0.2) k/uL Hypochromasia Marked Poikilocytosis Moderate Anisocytosis Slight Macrocytosis Slight PT 11.1 (9.0-12.0) sec INR 1.1 (<1.2) APTT 22.6 (22.0-30.0) sec Sodium 133 L (137-145) mmol/L Potassium 3.8 (3.5-5.1) mmol/L Chloride 101 (98-107) mmol/L Carbon Dioxide 29 (22-30) mmol/L Anion Gap 3 mmol/L BUN 20 H (7-17) mg/dL Creatinine 0.67 (0.52-1.04) mg/dL Est GFR (CKD-EPI)AfAm >90 (>60 ml/min/1.73 sqM) Est GFR (CKD-EPI)NonAf >90 (>60 ml/min/1.73 sqM) Glucose 79 (74-99) mg/dL Plasma Lactic Acid Zaki (0.7-2.0) mmol/L Calcium 7.9 L (8.4-10.2) mg/dL Phosphorus 4.2 (2.5-4.5) mg/dL Magnesium 1.8 (1.6-2.3) mg/dL Total Bilirubin 0.2 (0.2-1.3) mg/dL AST 21 (14-36) U/L ALT 8 (4-34) U/L Alkaline Phosphatase 36 L (38-126) U/L Troponin I (0.000-0.034) ng/mL Total Protein 4.5 L (6.3-8.2) g/dL Albumin 2.2 L (3.5-5.0) g/dL 09/10/19 09/10/19 Range/Units 05:47 05:47 WBC (3.8-10.6) k/uL RBC (3.80-5.40) m/uL Hgb (11.4-16.0) gm/dL Hct (34.0-46.0) % MCV (80.0-100.0) fL MCH (25.0-35.0) pg MCHC (31.0-37.0) g/dL RDW (11.5-15.5) % Plt Count (150-450) k/uL Neutrophils % % Lymphocytes % % Monocytes % % Eosinophils % % Basophils % % Neutrophils # (1.3-7.7) k/uL Lymphocytes # (1.0-4.8) k/uL Monocytes # (0-1.0) k/uL Eosinophils # (0-0.7) k/uL Basophils # (0-0.2) k/uL Hypochromasia Poikilocytosis Anisocytosis Macrocytosis PT (9.0-12.0) sec INR (<1.2) APTT (22.0-30.0) sec Sodium (137-145) mmol/L Potassium (3.5-5.1) mmol/L Chloride (98-107) mmol/L Carbon Dioxide (22-30) mmol/L Anion Gap mmol/L BUN (7-17) mg/dL Creatinine (0.52-1.04) mg/dL Est GFR (CKD-EPI)AfAm (>60 ml/min/1.73 sqM) Est GFR (CKD-EPI)NonAf (>60 ml/min/1.73 sqM) Glucose (74-99) mg/dL Plasma Lactic Acid Zaki 0.8 (0.7-2.0) mmol/L Calcium (8.4-10.2) mg/dL Phosphorus (2.5-4.5) mg/dL Magnesium (1.6-2.3) mg/dL Total Bilirubin (0.2-1.3) mg/dL AST (14-36) U/L ALT (4-34) U/L Alkaline Phosphatase (38-126) U/L Troponin I <0.012 (0.000-0.034) ng/mL Total Protein (6.3-8.2) g/dL Albumin (3.5-5.0) g/dL Disposition Clinical Impression: Anemia, Paresthesia of bilateral legs, Paresthesia of both hands Disposition: HOME SELF-CARE Condition: Fair Is patient prescribed a controlled substance at d/c from ED?: No Referrals: Alexei Vera MD [Primary Care Provider] - 1-2 days
[2019-09-10 05:58] LABS: Anisocytosis Slight; Basophils % (A) 0 %; Eosinophils # (A) 0.3 k/uL (0-0.7); Eosinophils % (A) 3 %; HCT 24.8 % (34.0-46.0); HGB 7.5 gm/dL (11.4-16.0); Hypochromasia Marked; Lymphocytes # (A) 1.8 k/uL (1.0-4.8); Lymphocytes % (A) 20 %; MCH 30.4 pg (25.0-35.0); MCHC 30.2 g/dL (31.0-37.0); MCV 100.7 fL (80.0-100.0); Macrocytosis Slight; Mean Platelet Volume 8.4; Monocytes # (A) 0.5 k/uL (0-1.0); Monocytes % (A) 5 %; Neutrophils # (A) 6.3 k/uL (1.3-7.7); Neutrophils % (A) 70 %; Platelet Count 151 k/uL (150-450); Poikilocytosis Moderate; RBC 2.46 m/uL (3.80-5.40); RDW 17.2 % (11.5-15.5)
[2019-09-10] MEDS ORDERED: SODIUM CHLORIDE 0.9% 500 ML 500 ML IV ONE (06:01)
[2019-09-10 06:02] VITALS: PULSE 75
[2019-09-10 06:16] LABS: INR 1.1 (<1.2); Partial Thromboplastin Time 22.6 sec (22.0-30.0); Prothrombin Time 11.1 sec (9.0-12.0)
[2019-09-10 06:18] LABS: ALT 8 U/L (4-34); AST 21 U/L (14-36); African American GFR (CKD) >90 (>60 ml/min/1.73 sqM); Albumin 2.2 g/dL (3.5-5.0); Alkaline Phosphatase 36 U/L (38-126); Anion Gap 3 mmol/L; Blood Urea Nitrogen 20 mg/dL (7-17); Calcium 7.9 mg/dL (8.4-10.2); Carbon Dioxide 29 mmol/L (22-30); Chloride 101 mmol/L (98-107); Glucose 79 mg/dL (74-99); Magnesium 1.8 mg/dL (1.6-2.3); Non-African American GFR(CKD) >90 (>60 ml/min/1.73 sqM); Phosphorus 4.2 mg/dL (2.5-4.5); Potassium 3.8 mmol/L (3.5-5.1); Sodium 133 mmol/L (137-145); Total Bilirubin 0.2 mg/dL (0.2-1.3); Total Protein 4.5 g/dL (6.3-8.2)
--- NOTE | 2019-09-10 06:29 | XR ---
EXAM: XR Chest, 2 Views CLINICAL HISTORY: Reason: Weakness TECHNIQUE: Frontal and lateral views of the chest. COMPARISON: 08/17/19 FINDINGS: Lungs: Lung volumes are within normal limits. There is no definite airspace consolidation. No pulmonary edema. Pleural space: Unremarkable. No pneumothorax. Heart: Cardiac silhouette is unchanged. Cardiac pacer/AICD hardware again seen. Mediastinum: No mediastinal widening or shift. Bones/joints: No acute osseous abnormality. Mild compression deformities of the thoracic spine, likely chronic. IMPRESSION: No evidence of acute cardiopulmonary abnormality.
--- NOTE | 2019-09-10 06:57 | CT ---
EXAM: CT Head Without Intravenous Contrast CLINICAL HISTORY: Reason: weakness TECHNIQUE: Axial computed tomography images of the head/brain without intravenous contrast. CTDI is 49 mGy and DLP is 1152 mGy-cm. This CT exam was performed using one or more of the following dose reduction techniques: automated exposure control, adjustment of the mA and/or kV according to patient size, and/or use of iterative reconstruction technique. COMPARISON: 01/31/19 FINDINGS: Brain: No evidence of acute intracranial hemorrhage. No mass effect or midline shift. Again seen is mild asymmetric volume loss within the left cerebral hemisphere, unchanged. Moderate small vessel ischemic disease. Ventricles: Ventricular volumes are stable. Bones/joints: Unremarkable. No acute fracture. Soft tissues: Unremarkable. Sinuses: Unremarkable as visualized. No acute sinusitis. Mastoid air cells: Unremarkable as visualized. No mastoid effusion. IMPRESSION: No evidence of acute intracranial abnormality. Small vessel ischemic disease. Chronic asymmetric volume loss in the left cerebral hemisphere likely associated with prior ischemic insult.
[2019-09-10 07:30] VITALS: RESP 18
[2019-09-10 07:51] LABS: Appearance,Urine Clear (Clear); Bacteria,Urine Moderate /hpf; Bilirubin,Urine Negative (Negative); Blood,Urine Negative (Negative); Color,Urine Yellow; Glucose,Urine (UA) Negative (Negative); Ketones,Urine Negative (Negative); Leukocyte Esterase,Urine Trace (Negative); Nitrite,Urine Positive (Negative); PH, Urine 5.5 (5.0-8.0); Protein,Urine Negative (Negative); Specific Gravity,Urine 1.016 (1.001-1.035); Squamous Epithelial Cell,Urine 1 /hpf (0-4); Urobilinogen,Urine <2.0 mg/dL (<2.0); WBC,Urine 3 /hpf (0-5)
[2019-09-10 08:02] VITALS: BP 129/87; TEMP 98.2
== END 2019-09-10 08:31 | disposition home or self-care (01) ==
LOC: EC 04:46
DX: D64.9 Anemia, unspecified (principal); R20.2 Paresthesia of skin; F41.9 Anxiety disorder, unspecified; F31.9 Bipolar disorder, unspecified; F41.0 Panic disorder [episodic paroxysmal anxiety]; J44.9 Chronic obstructive pulmonary disease, unspecified; I25.119 Atherosclerotic heart disease of native coronary artery with unspecified angina pectoris; E07.9 Disorder of thyroid, unspecified; E78.5 Hyperlipidemia, unspecified; I50.9 Heart failure, unspecified; K21.9 Gastro-esophageal reflux disease without esophagitis; K58.9 Irritable bowel syndrome, unspecified; M19.90 Unspecified osteoarthritis, unspecified site; I25.2 Old myocardial infarction; J96.10 Chronic respiratory failure, unspecified whether with hypoxia or hypercapnia; G35 Multiple sclerosis; E03.9 Hypothyroidism, unspecified; M79.7 Fibromyalgia; Z79.899 Other long term (current) drug therapy; Z88.0 Allergy status to penicillin; Z79.51 Long term (current) use of inhaled steroids; Z79.890 Hormone replacement therapy; Z87.891 Personal history of nicotine dependence; Z86.74 Personal history of sudden cardiac arrest; Z95.810 Presence of automatic (implantable) cardiac defibrillator; Z99.89 Dependence on other enabling machines and devices; Z87.19 Personal history of other diseases of the digestive system; Z95.5 Presence of coronary angioplasty implant and graft
CPT/HCPCS: 36415; 70450; 71046; 80053; 81001; 83605; 83735; 84100; 84484; 85025; 85610; 85730; 93005; 99285

== ENCOUNTER 2019-09-11 19:09 | Emergency (ER) | payer OTHER ==
[2019-09-11 19:14] VITALS: TEMP 98.1
[2019-09-11] MEDS ORDERED: IPRATROPIUM-ALBUTEROL 3 ML NEB INHALATION STA (19:24)
--- NOTE | 2019-09-11 19:31 | ED ---
General Adult HPI - General Chief complaint: Shortness of Breath Stated complaint: Diff Breathing Time Seen by Provider: 09/11/19 19:14 Source: patient, EMS, RN notes reviewed, old records reviewed Mode of arrival: EMS Limitations: no limitations - History of Present Illness Initial comments: This is a 64-year-old female presents emergency department today for evaluation with complaints of shortness of breath, onset a few hours prior to arrival. She seen in the emergency department yesterday for complaints of neuropathy. Patient states that she has not had a breathing treatment for a few hours. She called EMS and EMS noted that she was not wearing her at-home oxygen at that time. She states that she has no significant chest pain at this time. - Related Data Home Medications Medication Instructions Recorded Confirmed Folic Acid 1 mg PO DAILY 04/08/14 09/06/19 Thiamine [Vitamin B-1] 100 mg PO DAILY 04/13/15 09/06/19 Cholecalciferol (Vitamin D3) 2,000 unit PO DAILY 09/27/18 09/06/19 [Vitamin D3] Ferrous Sulfate [Iron (65 MG 325 mg PO BID 09/27/18 09/06/19 Elemental)] Levothyroxine Sodium [Synthroid] 100 mcg PO DAILY 09/27/18 09/06/19 Isosorbide Mononitrate ER [Imdur] 30 mg PO DAILY 02/06/19 09/06/19 Albuterol Sulfate [Proair Hfa] 2 puff INHALATION RT-QID PRN 03/16/19 09/06/19 Omeprazole 40 mg PO BID 03/16/19 09/06/19 Baclofen [Lioresal] 20 mg PO TID PRN 08/07/19 09/06/19 Potassium Chloride ER [K-Dur 20] 20 meq PO DAILY 08/07/19 09/06/19 ALPRAZolam [Xanax] 0.25 mg PO TID PRN 09/06/19 09/06/19 Albuterol Nebulized [Ventolin 2.5 mg INHALATION RT-Q4H PRN 09/06/19 09/06/19 Nebulized] Amiodarone HCl [Pacerone] 100 mg PO DAILY 09/06/19 09/06/19 Furosemide [Lasix] 20 mg PO DAILY 09/06/19 09/06/19 Ipratropium-Albuterol Nebulize 3 ml INHALATION RT-Q4H 09/06/19 09/07/19 [Duoneb 0.5 mg-3 mg/3 ml Soln] oxyCODONE-APAP 5-325MG [Percocet 1 tab PO Q8H PRN 09/06/19 09/06/19 5-325 mg] ARIPiprazole [Abilify] 10 mg PO DAILY 09/07/19 09/07/19 Citalopram Hydrobromide [CeleXA] 20 mg PO DAILY 09/07/19 09/07/19 Meclizine [Antivert] 25 mg PO QID PRN 09/07/19 09/07/19 Previous Rx's Medication Instructions Recorded Atorvastatin [Lipitor] 40 mg PO DAILY #30 tab 09/28/18 Gabapentin [Neurontin] 300 mg PO TID #9 cap 04/02/19 Cyanocobalamin [Vitamin B-12] 1,000 mcg PO DAILY #30 tab 08/11/19 Allergies Allergy/AdvReac Type Severity Reaction Status Date / Time Penicillins Allergy Swelling Verified 09/06/19 20:11 Review of Systems ROS Statement: Those systems with pertinent positive or pertinent negative responses have been documented in the HPI. ROS Other: All systems not noted in ROS Statement are negative. Past Medical History Past Medical History: Coronary Artery Disease (CAD), Chest Pain / Angina, Heart Failure, COPD, Eye Disorder, Fibromyalgia, GERD/Reflux, Hyperlipidemia, Hypertension, Myocardial Infarction ([place]), Musculoskeletal Disorder, Neurologic Disorder, Osteoarthritis (OA), Pneumonia, Respiratory Disorder, Skin Disorder, Thyroid Disorder, Vascular Disorder Additional Past Medical History / Comment(s): 11/2012 [place] with cardiac arrest/vtach, chronic respiratory failure-uses home O2 prn 2-3L/[place], tracheobronchitis, tricuspid regurgitation, multiple sclerosis, neuropathy bilateral legs/feet, chronic back pain, DDD, migraines, bilateral carpal tunnel syndrome, past L/R rib fractures, past L hip fracture with surgery, PUD with ulcer rupture with surgery, peritonitis, pancreatitis, IBS/ ulcerative colitis, chronic anemia, UTIs, urinary incontinence, endometriosis, hypothyroid, R cataract and L eye cataract forming again, PVD, L leg cellulitis, Last Myocardial Infarction Date:: 2012 History of Any Multi-Drug Resistant Organisms: ESBL Date of last positivie culture/infection: 02/18/2014 MDRO Source:: Blood and Urine E. coli ESBL Past Surgical History: AICD, Appendectomy, Heart Catheterization, Heart Catheterization With Stent, Orthopedic Surgery, Pacemaker Additional Past Surgical History / Comment(s): Cardioversion, Laparotomy for ruptured gastric ulcer, R foot fracture with surgery, L hip fracture with surgery-has plate and screw, EGD, colonoscopies with bening polypectomy. Past Anesthesia/Blood Transfusion Reactions: No Reported Reaction Additional Past Anesthesia/Blood Transfusion Reaction / Comment(s): Pt has received blood in past without reaction. Date of Last Stent Placement:: 11/2012 Type of Cardiac Device: Permanent Pacemaker, AICD Device Placement Date:: 2012 Past Psychological History: Anxiety, Bipolar, Depression, Panic Disorder Smoking Status: Former smoker Past Alcohol Use History: None Reported Past Drug Use History: None Reported - Past Family History Mother Family Medical History: Musculoskeletal Disorder Additional Family Medical History / Comment(s): MS Sister(s) Family Medical History: Myocardial Infarction ([place]) Additional Family Medical History / Comment(s): SISTER ALSO HAS MS Brother(s) Family Medical History: Musculoskeletal Disorder, Neurologic Disorder Additional Family Medical History / Comment(s): MS Father Additional Family Medical History / Comment(s): ETOH abuse, back surgery General Exam - General Exam Comments Initial Comments: 64-year-old female. Alert and oriented. No distress. Limitations: no limitations General appearance: alert, in no apparent distress Head exam: Present: atraumatic, normocephalic, normal inspection Eye exam: Present: normal appearance, PERRL, EOMI. Absent: scleral icterus, conjunctival injection, periorbital swelling ENT exam: Present: normal exam, mucous membranes moist Neck exam: Present: normal inspection. Absent: tenderness, meningismus, lymphadenopathy Respiratory exam: Present: normal lung sounds bilaterally, wheezes. Absent: respiratory distress, rales, rhonchi, stridor Cardiovascular Exam: Present: regular rate, normal rhythm, normal heart sounds. Absent: systolic murmur, diastolic murmur, rubs, gallop, clicks GI/Abdominal exam: Present: soft, normal bowel sounds. Absent: distended, tenderness, guarding, rebound, rigid Extremities exam: Present: normal inspection, full ROM, normal capillary refill. Absent: tenderness, pedal edema, joint swelling, calf tenderness Back exam: Present: normal inspection Neurological exam: Present: alert, oriented X3, CN II-XII intact Psychiatric exam: Present: normal affect, normal mood Skin exam: Present: warm, dry, intact, normal color. Absent: rash Course Vital Signs 09/11/19 09/11/19 09/11/19 19:10 19:52 20:04 Temperature 98.1 F Pulse Rate 83 83 77 Respiratory 18 18 18 Rate Blood Pressure 111/77 O2 Sat by Pulse 98 Oximetry 09/11/19 21:44 Temperature 98.1 F Pulse Rate 80 Respiratory 16 Rate Blood Pressure 101/52 O2 Sat by Pulse 98 Oximetry EKG Findings - EKG Comments: EKG Findings:: EKG performed at 1915 shows sinus rhythm with occasional PVCs. Low voltage QRS. Possible inferior infarct age undetermined. Ventricular rate 83 bpm. Verbal is 128 ms. Chemistry she has 86 ms. QT QTc is 342/41 ms. Medical Decision Making - Medical Decision Making 64 year old presents with shortness of breath via EMS but was found not wearing her oxygen. She had minimal wheezing. She was given douneb treatment and plabs and CXR obtained. No change in CXR and no significant change in labs. AFter duoneb she is feeling better. Discussed the patient needs to use supplemental oxygen at home and she is comfortableand anxious for discharge. Discussed return parameters. - Lab Data Result diagrams: 09/11/19 19:56 09/11/19 19:56 Lab Results 09/11/19 09/11/19 09/11/19 Range/Units 19:56 19:56 19:56 WBC 7.9 (3.8-10.6) k/uL RBC 2.50 L (3.80-5.40) m/uL Hgb 7.4 L (11.4-16.0) gm/dL Hct 24.7 L (34.0-46.0) % MCV 98.9 (80.0-100.0) fL MCH 29.7 (25.0-35.0) pg MCHC 30.0 L (31.0-37.0) g/dL RDW 17.1 H (11.5-15.5) % Plt Count 205 (150-450) k/uL Neutrophils % 77 % Lymphocytes % 14 % Monocytes % 5 % Eosinophils % 2 % Basophils % 0 % Neutrophils # 6.1 (1.3-7.7) k/uL Lymphocytes # 1.1 (1.0-4.8) k/uL Monocytes # 0.4 (0-1.0) k/uL Eosinophils # 0.2 (0-0.7) k/uL Basophils # 0.0 (0-0.2) k/uL Hypochromasia Marked Poikilocytosis Slight Anisocytosis Slight Macrocytosis Slight PT 10.7 (9.0-12.0) sec INR 1.0 (<1.2) APTT 24.1 (22.0-30.0) sec Sodium 130 L (137-145) mmol/L Potassium 3.6 (3.5-5.1) mmol/L Chloride 100 (98-107) mmol/L Carbon Dioxide 28 (22-30) mmol/L Anion Gap 2 mmol/L BUN 13 (7-17) mg/dL Creatinine 0.52 (0.52-1.04) mg/dL Est GFR (CKD-EPI)AfAm >90 (>60 ml/min/1.73 sqM) Est GFR (CKD-EPI)NonAf >90 (>60 ml/min/1.73 sqM) Glucose 99 (74-99) mg/dL Plasma Lactic Acid Zaki (0.7-2.0) mmol/L Calcium 7.8 L (8.4-10.2) mg/dL Total Bilirubin 0.1 L (0.2-1.3) mg/dL AST 22 (14-36) U/L ALT 9 (4-34) U/L Alkaline Phosphatase 43 (38-126) U/L Troponin I (0.000-0.034) ng/mL NT-Pro-B Natriuret Pep pg/mL Total Protein 4.5 L (6.3-8.2) g/dL Albumin 2.2 L (3.5-5.0) g/dL 09/11/19 09/11/19 09/11/19 Range/Units 19:56 19:56 19:56 WBC (3.8-10.6) k/uL RBC (3.80-5.40) m/uL Hgb (11.4-16.0) gm/dL Hct (34.0-46.0) % MCV (80.0-100.0) fL MCH (25.0-35.0) pg MCHC (31.0-37.0) g/dL RDW (11.5-15.5) % Plt Count (150-450) k/uL Neutrophils % % Lymphocytes % % Monocytes % % Eosinophils % % Basophils % % Neutrophils # (1.3-7.7) k/uL Lymphocytes # (1.0-4.8) k/uL Monocytes # (0-1.0) k/uL Eosinophils # (0-0.7) k/uL Basophils # (0-0.2) k/uL Hypochromasia Poikilocytosis Anisocytosis Macrocytosis PT (9.0-12.0) sec INR (<1.2) APTT (22.0-30.0) sec Sodium (137-145) mmol/L Potassium (3.5-5.1) mmol/L Chloride (98-107) mmol/L Carbon Dioxide (22-30) mmol/L Anion Gap mmol/L BUN (7-17) mg/dL Creatinine (0.52-1.04) mg/dL Est GFR (CKD-EPI)AfAm (>60 ml/min/1.73 sqM) Est GFR (CKD-EPI)NonAf (>60 ml/min/1.73 sqM) Glucose (74-99) mg/dL Plasma Lactic Acid Zaki 0.6 L (0.7-2.0) mmol/L Calcium (8.4-10.2) mg/dL Total Bilirubin (0.2-1.3) mg/dL AST (14-36) U/L ALT (4-34) U/L Alkaline Phosphatase (38-126) U/L Troponin I <0.012 (0.000-0.034) ng/mL NT-Pro-B Natriuret Pep 1230 pg/mL Total Protein (6.3-8.2) g/dL Albumin (3.5-5.0) g/dL Disposition Clinical Impression: Wheezing, Shortness of breath Disposition: HOME SELF-CARE Condition: Good Instructions (If sedation given, give patient instructions): Shortness of Breath (ED) Additional Instructions: Please follow up with family doctor if symptoms have not improved over the next two days. Use oxygen at home. Please return to the emergency room if your symptoms increase or worsen or for any other concerns. Is patient prescribed a controlled substance at d/c from ED?: No Referrals: Alexei Vera MD [Primary Care Provider] - 1-2 days Time of Disposition: 21:31
[2019-09-11 20:12] LABS: Anisocytosis Slight; Basophils % (A) 0 %; Eosinophils # (A) 0.2 k/uL (0-0.7); Eosinophils % (A) 2 %; HCT 24.7 % (34.0-46.0); HGB 7.4 gm/dL (11.4-16.0); Hypochromasia Marked; Lymphocytes # (A) 1.1 k/uL (1.0-4.8); Lymphocytes % (A) 14 %; MCH 29.7 pg (25.0-35.0); MCV 98.9 fL (80.0-100.0); Macrocytosis Slight; Mean Platelet Volume 8.1; Monocytes # (A) 0.4 k/uL (0-1.0); Monocytes % (A) 5 %; Neutrophils # (A) 6.1 k/uL (1.3-7.7); Neutrophils % (A) 77 %; Platelet Count 205 k/uL (150-450); Poikilocytosis Slight; RDW 17.1 % (11.5-15.5); WBC 7.9 k/uL (3.8-10.6)
[2019-09-11 20:24] LABS: ALT 9 U/L (4-34); AST 22 U/L (14-36); African American GFR (CKD) >90 (>60 ml/min/1.73 sqM); Albumin 2.2 g/dL (3.5-5.0); Alkaline Phosphatase 43 U/L (38-126); Anion Gap 2 mmol/L; Blood Urea Nitrogen 13 mg/dL (7-17); Calcium 7.8 mg/dL (8.4-10.2); Carbon Dioxide 28 mmol/L (22-30); Chloride 100 mmol/L (98-107); Glucose 99 mg/dL (74-99); Non-African American GFR(CKD) >90 (>60 ml/min/1.73 sqM); Partial Thromboplastin Time 24.1 sec (22.0-30.0); Potassium 3.6 mmol/L (3.5-5.1); Prothrombin Time 10.7 sec (9.0-12.0); Sodium 130 mmol/L (137-145); Total Bilirubin 0.1 mg/dL (0.2-1.3); Total Protein 4.5 g/dL (6.3-8.2)
--- NOTE | 2019-09-11 20:39 | XR ---
EXAMINATION TYPE: XR chest 2V DATE OF EXAM: 09/11/2019 COMPARISON: Chest x-ray from yesterday and older studies. CT chest April 08, 2019. HISTORY: Difficulty in breathing. TECHNIQUE: Frontal and lateral views of the chest are obtained. FINDINGS: There is chronic emphysematous change and right-sided volume loss without suspicious new f ocal air space opacity, pleural effusion, or pneumothorax seen. The cardiac silhouette size remains enlarged with single lead pacemaker/AICD. The osseous structures remain demineralized. Mild chronic compression fracture roughly T8 level redemonstrated. There is coronary artery stent inferiorly agai n seen on lateral view. IMPRESSION: Chronic emphysematous change and cardiomegaly without acute pulmonary process. No signif icant change from prior.
[2019-09-11 21:46] VITALS: BP 101/52; PULSE 80; RESP 16
== END 2019-09-11 22:28 | disposition home or self-care (01) ==
LOC: EC 19:09
DX: R06.02 Shortness of breath (principal); R06.2 Wheezing; G62.9 Polyneuropathy, unspecified; F41.9 Anxiety disorder, unspecified; F31.9 Bipolar disorder, unspecified; J44.9 Chronic obstructive pulmonary disease, unspecified; I25.119 Atherosclerotic heart disease of native coronary artery with unspecified angina pectoris; I11.0 Hypertensive heart disease with heart failure; I50.9 Heart failure, unspecified; M79.7 Fibromyalgia; K21.9 Gastro-esophageal reflux disease without esophagitis; E78.5 Hyperlipidemia, unspecified; I25.2 Old myocardial infarction; M19.90 Unspecified osteoarthritis, unspecified site; J96.10 Chronic respiratory failure, unspecified whether with hypoxia or hypercapnia; Z99.89 Dependence on other enabling machines and devices; G43.909 Migraine, unspecified, not intractable, without status migrainosus; K58.9 Irritable bowel syndrome, unspecified; E03.9 Hypothyroidism, unspecified; Z79.890 Hormone replacement therapy; Z79.51 Long term (current) use of inhaled steroids; Z79.899 Other long term (current) drug therapy; Z87.19 Personal history of other diseases of the digestive system; Z87.891 Personal history of nicotine dependence; Z88.0 Allergy status to penicillin; Z95.810 Presence of automatic (implantable) cardiac defibrillator; Z95.5 Presence of coronary angioplasty implant and graft; Z86.74 Personal history of sudden cardiac arrest
CPT/HCPCS: 36415; 71046; 80053; 83605; 83880; 84484; 85025; 85610; 85730; 94640; 99285

== ENCOUNTER 2019-09-15 17:26 | Observation (INO) | payer OTHER ==
[2019-09-15] MEDS ORDERED: SODIUM CHLORIDE 0.9% 1,000 ML IV STA (18:01)
[2019-09-15 18:34] LABS: Basophils % (A) 0 %; Eosinophils # (A) 0.1 k/uL (0-0.7); Eosinophils % (A) 2 %; HCT 21.4 % (34.0-46.0); Hypochromasia Marked; Lymphocytes # (A) 1.5 k/uL (1.0-4.8); Lymphocytes % (A) 20 %; MCH 29.9 pg (25.0-35.0); MCHC 30.2 g/dL (31.0-37.0); Macrocytosis Slight; Mean Platelet Volume 8.4; Monocytes # (A) 0.4 k/uL (0-1.0); Monocytes % (A) 5 %; Neutrophils # (A) 5.2 k/uL (1.3-7.7); Neutrophils % (A) 71 %; Platelet Count 199 k/uL (150-450); Poikilocytosis Slight; RBC 2.16 m/uL (3.80-5.40); RDW 15.8 % (11.5-15.5); WBC 7.3 k/uL (3.8-10.6)
[2019-09-15 18:38] LABS: HGB 6.5 gm/dL (11.4-16.0)
--- NOTE | 2019-09-15 18:50 | XR ---
EXAMINATION TYPE: XR chest 2V DATE OF EXAM: 09/15/2019 COMPARISON: 09/11/2019 INDICATION: Difficulty breathing history of COPD TECHNIQUE: Frontal and lateral views of the chest are obtained. Patient is rotated to the right on t he frontal projection. FINDINGS: The heart size is normal. The pulmonary vasculature is normal. The lungs are clear. There is hyperinflation flattening the diaphragms with an increased AP diameter and increased kyphosis. Findings are compatible with COPD. Pacemaker overlies left chest. IMPRESSION: 1. No acute pulmonary process. 2. COPD
[2019-09-15 18:51] LABS: ALT 9 U/L (4-34); AST 21 U/L (14-36); African American GFR (CKD) >90 (>60 ml/min/1.73 sqM); Albumin 2.5 g/dL (3.5-5.0); Alkaline Phosphatase 40 U/L (38-126); Anion Gap 5 mmol/L; Blood Urea Nitrogen 10 mg/dL (7-17); Calcium 7.8 mg/dL (8.4-10.2); Carbon Dioxide 28 mmol/L (22-30); Chloride 97 mmol/L (98-107); Glucose 95 mg/dL (74-99); Non-African American GFR(CKD) >90 (>60 ml/min/1.73 sqM); Potassium 3.7 mmol/L (3.5-5.1); Sodium 130 mmol/L (137-145); Total Bilirubin 0.2 mg/dL (0.2-1.3); Total Protein 4.8 g/dL (6.3-8.2)
[2019-09-15 18:53] LABS: INR 1.1 (<1.2)
[2019-09-15 18:57] LABS: Partial Thromboplastin Time 17.8 sec (22.0-30.0)
--- NOTE | 2019-09-15 19:02 | ED ---
General Adult HPI - General Chief complaint: Shortness of Breath Stated complaint: SOB Time Seen by Provider: 09/15/19 17:34 Source: patient, EMS, RN notes reviewed Mode of arrival: EMS Limitations: no limitations - History of Present Illness Initial comments: 63-year-old female with a complicated past medical history presents to the emergency department for a flash shortness of breath. Patient has shortness of breath earlier today lasted for most of the day. Patient chronically wears oxygen and was wearing her oxygen at home. Patient called 911 because of this shortness of breath however upon arrival it resolved. Patient states she is actually feeling well at this time. She denies any associated chest pain. Denies any significant coughing.Patient has no other complaints at this time including shortness of breath, chest pain, abdominal pain, nausea or vomiting, headache, or visual changes. - Related Data Home Medications Medication Instructions Recorded Confirmed Folic Acid 1 mg PO DAILY 04/08/14 09/06/19 Thiamine [Vitamin B-1] 100 mg PO DAILY 04/13/15 09/06/19 Cholecalciferol (Vitamin D3) 2,000 unit PO DAILY 09/27/18 09/06/19 [Vitamin D3] Ferrous Sulfate [Iron (65 MG 325 mg PO BID 09/27/18 09/06/19 Elemental)] Levothyroxine Sodium [Synthroid] 100 mcg PO DAILY 09/27/18 09/06/19 Isosorbide Mononitrate ER [Imdur] 30 mg PO DAILY 02/06/19 09/06/19 Albuterol Sulfate [Proair Hfa] 2 puff INHALATION RT-QID PRN 03/16/19 09/06/19 Omeprazole 40 mg PO BID 03/16/19 09/06/19 Baclofen [Lioresal] 20 mg PO TID PRN 08/07/19 09/06/19 Potassium Chloride ER [K-Dur 20] 20 meq PO DAILY 08/07/19 09/06/19 ALPRAZolam [Xanax] 0.25 mg PO TID PRN 09/06/19 09/06/19 Albuterol Nebulized [Ventolin 2.5 mg INHALATION RT-Q4H PRN 09/06/19 09/06/19 Nebulized] Amiodarone HCl [Pacerone] 100 mg PO DAILY 09/06/19 09/06/19 Furosemide [Lasix] 20 mg PO DAILY 09/06/19 09/06/19 Ipratropium-Albuterol Nebulize 3 ml INHALATION RT-Q4H 09/06/19 09/07/19 [Duoneb 0.5 mg-3 mg/3 ml Soln] oxyCODONE-APAP 5-325MG [Percocet 1 tab PO Q8H PRN 09/06/19 09/06/19 5-325 mg] ARIPiprazole [Abilify] 10 mg PO DAILY 09/07/19 09/07/19 Citalopram Hydrobromide [CeleXA] 20 mg PO DAILY 09/07/19 09/07/19 Meclizine [Antivert] 25 mg PO QID PRN 09/07/19 09/07/19 Previous Rx's Medication Instructions Recorded Atorvastatin [Lipitor] 40 mg PO DAILY #30 tab 09/28/18 Gabapentin [Neurontin] 300 mg PO TID #9 cap 04/02/19 Cyanocobalamin [Vitamin B-12] 1,000 mcg PO DAILY #30 tab 08/11/19 Allergies Allergy/AdvReac Type Severity Reaction Status Date / Time Penicillins Allergy Swelling Verified 09/06/19 20:11 Review of Systems ROS Statement: Those systems with pertinent positive or pertinent negative responses have been documented in the HPI. ROS Other: All systems not noted in ROS Statement are negative. Past Medical History Past Medical History: Coronary Artery Disease (CAD), Chest Pain / Angina, Heart Failure, COPD, Eye Disorder, Fibromyalgia, GERD/Reflux, Hyperlipidemia, Hypertension, Myocardial Infarction ([place]), Musculoskeletal Disorder, Neurologic Disorder, Osteoarthritis ([place]), Pneumonia, Respiratory Disorder, Skin Disorder, Thyroid Disorder, Vascular Disorder Additional Past Medical History / Comment(s): 11/2012 [place] with cardiac arrest/vtach, chronic respiratory failure-uses home O2 prn 2-3L/[place], tracheobronchitis, tricuspid regurgitation, multiple sclerosis, neuropathy ranjeet ateral legs/feet, chronic back pain, DDD, migraines, bilateral carpal tunnel syndrome, past L/R rib fractures, past L hip fracture with surgery, PUD with ulcer rupture with surgery, peritonitis, pancreatitis, IBS/ ulcerative colitis, chronic anemia, UTIs, urinary incontinence, endometriosis, hypothyroid, R cataract and L eye cataract forming again, PVD, L leg cellulitis, Last Myocardial Infarction Date:: 2012 History of Any Multi-Drug Resistant Organisms: ESBL Date of last positivie culture/infection: 02/18/2014 MDRO Source:: Blood and Urine E. coli ESBL Past Surgical History: AICD, Appendectomy, Heart Catheterization, Heart Catheterization With Stent, Orthopedic Surgery, Pacemaker Additional Past Surgical History / Comment(s): Cardioversion, Laparotomy for ruptured gastric ulcer, R foot fracture with surgery, L hip fracture with surgery-has plate and screw, EGD, colonoscopies with bening polypectomy. Past Anesthesia/Blood Transfusion Reactions: No Reported Reaction Additional Past Anesthesia/Blood Transfusion Reaction / Comment(s): Pt has received blood in past without reaction. Date of Last Stent Placement:: 11/2012 Type of Cardiac Device: Permanent Pacemaker, AICD Device Placement Date:: 2012 Past Psychological History: Anxiety, Bipolar, Depression, Panic Disorder Smoking Status: Former smoker Past Alcohol Use History: None Reported Past Drug Use History: None Reported - Past Family History Mother Family Medical History: Musculoskeletal Disorder Additional Family Medical History / Comment(s): MS Sister(s) Family Medical History: Myocardial Infarction ([place]) Additional Family Medical History / Comment(s): SISTER ALSO HAS MS Brother(s) Family Medical History: Musculoskeletal Disorder, Neurologic Disorder Additional Family Medical History / Comment(s): MS Father Additional Family Medical History / Comment(s): ETOH abuse, back surgery General Exam Limitations: no limitations Course Vital Signs 09/15/19 09/15/19 17:34 18:14 Temperature 98.9 F Pulse Rate 77 80 Respiratory 16 18 Rate Blood Pressure 93/64 106/71 O2 Sat by Pulse 100 99 Oximetry EKG Findings - EKG Comments: EKG Findings:: Sinus rhythm him, ventricular rate 77, MA interval 110, QTc 400, no signs of ST elevation or depression. Frequent PVCs are noted. Medical Decision Making - Medical Decision Making Vitals are stable. She was initially hypotensive and was given a liter of f luids. Digital exam unremarkable. Lung sounds are unremarkable. Laboratory evaluation did reveal that Patient does have acute on chronic anemia with hemoglobin of 6.5. This is a 3 point drop from 10 days ago. Blood transfusion was ordered. She is refusing occult blood, states has a history of GI bleed and states that is probably why she is anemic. Patient has noticed dark stools but takes iron. Patient does not take blood thinners. On review of patient's chart she does have GI bleed with known gastric ulcer. She was admitted for anemia last week and seen by GI 7 days ago and did not want any further endoscopic evaluation at that time. Previous endoscopic evaluation did reveal a gastric mass found to be benign. Given symptomatic anemia and weakness pt will be admitted for blood transfusions and repeat CBC. - Lab Data Result diagrams: 09/15/19 18:25 09/15/19 18:25 Lab Results 09/15/19 09/15/19 09/15/19 Range/Units 18:25 18:25 18:25 WBC 7.3 (3.8-10.6) k/uL RBC 2.16 L (3.80-5.40) m/uL Hgb 6.5 L* (11.4-16.0) gm/dL Hct 21.4 L (34.0-46.0) % MCV 99.0 (80.0-100.0) fL MCH 29.9 (25.0-35.0) pg MCHC 30.2 L (31.0-37.0) g/dL RDW 15.8 H (11.5-15.5) % Plt Count 199 (150-450) k/uL Neutrophils % 71 % Lymphocytes % 20 % Monocytes % 5 % Eosinophils % 2 % Basophils % 0 % Neutrophils # 5.2 (1.3-7.7) k/uL Lymphocytes # 1.5 (1.0-4.8) k/uL Monocytes # 0.4 (0-1.0) k/uL Eosinophils # 0.1 (0-0.7) k/uL Basophils # 0.0 (0-0.2) k/uL Hypochromasia Marked Poikilocytosis Slight Macrocytosis Slight PT 11.0 (9.0-12.0) sec INR 1.1 (<1.2) APTT 17.8 L (22.0-30.0) sec Sodium 130 L (137-145) mmol/L Potassium 3.7 (3.5-5.1) mmol/L Chloride 97 L (98-107) mmol/L Carbon Dioxide 28 (22-30) mmol/L Anion Gap 5 mmol/L BUN 10 (7-17) mg/dL Creatinine 0.50 L (0.52-1.04) mg/dL Est GFR (CKD-EPI)AfAm >90 (>60 ml/min/1.73 sqM) Est GFR (CKD-EPI)NonAf >90 (>60 ml/min/1.73 sqM) Glucose 95 (74-99) mg/dL Calcium 7.8 L (8.4-10.2) mg/dL Total Bilirubin 0.2 (0.2-1.3) mg/dL AST 21 (14-36) U/L ALT 9 (4-34) U/L Alkaline Phosphatase 40 (38-126) U/L Troponin I (0.000-0.034) ng/mL NT-Pro-B Natriuret Pep pg/mL Total Protein 4.8 L (6.3-8.2) g/dL Albumin 2.5 L (3.5-5.0) g/dL 09/15/19 09/15/19 Range/Units 18:25 18:25 WBC (3.8-10.6) k/uL RBC (3.80-5.40) m/uL Hgb (11.4-16.0) gm/dL Hct (34.0-46.0) % MCV (80.0-100.0) fL MCH (25.0-35.0) pg MCHC (31.0-37.0) g/dL RDW (11.5-15.5) % Plt Count (150-450) k/uL Neutrophils % % Lymphocytes % % Monocytes % % Eosinophils % % Basophils % % Neutrophils # (1.3-7.7) k/uL Lymphocytes # (1.0-4.8) k/uL Monocytes # (0-1.0) k/uL Eosinophils # (0-0.7) k/uL Basophils # (0-0.2) k/uL Hypochromasia Poikilocytosis Macrocytosis PT (9.0-12.0) sec INR (<1.2) APTT (22.0-30.0) sec Sodium (137-145) mmol/L Potassium (3.5-5.1) mmol/L Chloride (98-107) mmol/L Carbon Dioxide (22-30) mmol/L Anion Gap mmol/L BUN (7-17) mg/dL Creatinine (0.52-1.04) mg/dL Est GFR (CKD-EPI)AfAm (>60 ml/min/1.73 sqM) Est GFR (CKD-EPI)NonAf (>60 ml/min/1.73 sqM) Glucose (74-99) mg/dL Calcium (8.4-10.2) mg/dL Total Bilirubin (0.2-1.3) mg/dL AST (14-36) U/L ALT (4-34) U/L Alkaline Phosphatase (38-126) U/L Troponin I <0.012 (0.000-0.034) ng/mL NT-Pro-B Natriuret Pep 1090 pg/mL Total Protein (6.3-8.2) g/dL Albumin (3.5-5.0) g/dL Disposition Clinical Impression: Acute on chronic anemia, History of GI bleed, Shortness of breath, Hyponatremia Disposition: ADMITTED IP TO THIS HOSP Condition: Fair Is patient prescribed a controlled substance at d/c from ED?: No Referrals: Alexei Vera MD [Primary Care Provider] - 1-2 days Time of Disposition: 19:14
[2019-09-15] MEDS ORDERED: NALOXONE 0.4 MG/ML 1 ML VIAL IV PRN (19:29)
[2019-09-15] MEDS ORDERED: ALPRAZolam 0.25 MG TAB PO PRN (19:33)
[2019-09-15] MEDS ORDERED: ALBUTEROL HFA INHALER INHALATION PRN (19:33)
[2019-09-15] MEDS ORDERED: ALBUTEROL NEBULIZED 2.5 MG/3 ML INHALATION PRN (19:33)
[2019-09-15] MEDS: SODIUM CHLORIDE 0.9% 1,000 ML IV SCH (21:15)
[2019-09-15] MEDS: MECLIZINE 25 MG TAB PO PRN (21:31)
[2019-09-15] MEDS: GABAPENTIN 300 MG CAP PO SCH (21:31)
[2019-09-15] MEDS: oxyCODONE-APAP 5-325MG 1 EACH TAB PO PRN (21:31)
[2019-09-15] MEDS: BACLOFEN 10 MG TAB PO PRN (21:31)
[2019-09-15] MEDS: FERROUS SULFATE 325 MG TAB PO SCH (21:34)
[2019-09-15] MEDS: PANTOPRAZOLE 40 MG TABLET PO SCH (21:39)
[2019-09-15] MEDS: LORATADINE 10 MG TAB PO PRN (23:28)
[2019-09-15] MEDS: IPRATROPIUM-ALBUTEROL 3 ML NEB INHALATION SCH (23:36)
[2019-09-16] MEDS: IPRATROPIUM-ALBUTEROL 3 ML NEB INHALATION SCH ×5 (03:40→20:07)
[2019-09-16] MEDS: LEVOTHYROXINE 100 MCG TAB PO SCH (06:14)
[2019-09-16 08:21] LABS: Basophils % (A) 0 %; Eosinophils # (A) 0.2 k/uL (0-0.7); Eosinophils % (A) 3 %; Hypochromasia Marked; Lymphocytes # (A) 1.8 k/uL (1.0-4.8); Lymphocytes % (A) 25 %; MCH 31.1 pg (25.0-35.0); MCHC 31.3 g/dL (31.0-37.0); MCV 99.5 fL (80.0-100.0); Macrocytosis Slight; Mean Platelet Volume 8.4; Monocytes # (A) 0.4 k/uL (0-1.0); Monocytes % (A) 6 %; Neutrophils # (A) 4.6 k/uL (1.3-7.7); Neutrophils % (A) 65 %; Platelet Count 182 k/uL (150-450); Poikilocytosis Moderate; RBC 2.71 m/uL (3.80-5.40); RDW 15.5 % (11.5-15.5); WBC 7.2 k/uL (3.8-10.6)
[2019-09-16 08:24] LABS: HGB 8.4 gm/dL (11.4-16.0)
[2019-09-16] MEDS: POTASSIUM CHLORIDE ER 20 MEQ TAB.ER PO SCH (09:11)
[2019-09-16] MEDS: THIAMINE 100 MG TAB PO SCH (09:11)
[2019-09-16] MEDS: CYANOCOBALAMIN 500 MCG TAB PO SCH (09:12)
[2019-09-16] MEDS: oxyCODONE-APAP 5-325MG 1 EACH TAB PO PRN ×3 (09:12→23:20)
[2019-09-16] MEDS: CITALOPRAM HYDROBROMIDE 20 MG TAB PO SCH (09:12)
[2019-09-16] MEDS: GABAPENTIN 300 MG CAP PO SCH ×3 (09:13→21:07)
[2019-09-16] MEDS: CHOLECALCIFEROL 1,000 UNIT TAB PO SCH (09:13)
[2019-09-16] MEDS: FERROUS SULFATE 325 MG TAB PO SCH ×2 (09:13→18:27)
[2019-09-16] MEDS: AMIODARONE 100 MG TAB PO SCH (09:13)
[2019-09-16] MEDS: FUROSEMIDE 20 MG TAB PO SCH (09:13)
[2019-09-16] MEDS: ATORVASTATIN 40 MG TAB PO SCH (09:13)
[2019-09-16] MEDS: ISOSORBIDE MONONITRATE ER 30 MG TAB.ER.24H PO SCH ×2 (09:13→09:26)
[2019-09-16] MEDS: PANTOPRAZOLE 40 MG TABLET PO SCH ×2 (09:13→21:07)
[2019-09-16] MEDS: ARIPiprazole 10 MG TAB PO SCH (09:13)
[2019-09-16] MEDS: FOLIC ACID 1 MG TAB PO SCH (09:13)
--- NOTE | 2019-09-16 18:14 | P.HPIM ---
History of Present Illness H&P Date: 09/16/19 Chief Complaint: Shortness of breath history of presenting complaint: This is a 63-year-old patient who follows with visiting physicians Dr. Vera.. Normally uses a wheelchair or a walker to get about. Chronic stable medical conditions include, coronary artery disease, COPD in an ex-smoker, chronic fibromyalgia, GERD, hyperlipidemia, essential hypertension, osteoarthritis, hypothyroid, chronic multiple sclerosis, peripheral neuropathy lower extremity, chronic urinary incontinence. Patient also was worked up at [facility] for a gastric greater curvature mass which eventually showed up to be normal smooth muscle cells. Also's chronic intermittent GI bleed from a gastric ulcer. Patient admitted to the hospital on August 06 with a diagnosis of bilateral lower extremity DVT. Could not tolerate IV heparin because of intermittent dark stools for some time. Did require blood transfusion. [place] filter was placed. Patient declined any endoscopy. Patient admitted from August 2018 through September 07. The hemoglobin of 6. 2 units of blood were given. Patient again declined endoscopy. Patient now presented to the ER for shortness of breath. No cough. No fever no chills. Patient is continued to have intermittent docs stools. Hemoglobin was found to be 6.5. Given a unit of blood. Hemoglobin this morning 8.4. Breathing much improved. No abdominal pain. Patient again does not want any endoscopy. Review of systems: GEN.: Tired EYES: None HEENT: Decreased hearing NECK: None RESPIRATORY: As above CARDIOVASCULAR: None GASTROINTESTINAL: Intermittent abdominal pain with dark stools GENITOURINARY: None MUSCULOSKELETAL: joint pain LYMPHATICS: None HEMATOLOGICAL: None PSYCHIATRY: None NEUROLOGICAL: does use a wheelchair or a walker-rest as above Past medical history to include: Coronary artery disease, COPD in an ex-smoker, chronic fibromyalgia, GERD, hyperlipidemia, essential hypertension, osteoarthritis, hypothyroid, chronic multiple sclerosis, peripheral neuropathy lower extremity, chronic urinary incontinence, 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 Has a friend Alvarado who spends most of the day with her. uses walker and/or wheelchair history of alcohol abuse last drink over 20 years ago. Also smoked a pack a day for close to 40 years up until very recently. Physical examination: VITAL SIGNS: 98.9, 77, 16, 93/64, 100% on 2 L upon presentation GENERAL: Laying in bed, awake EYES: Pupils equal. Conjunctiva pale HEENT: External appearance of nose and ears normal, oral cavity grossly normal. Slight puffiness of the right side cheek, with no tenderness-patient has no skin NECK: JVD not raised; masses not palpable. HEART: First and second heart sounds are normal; mild edema. LUNGS: Respiratory rate increased, decreased breath sounds. ABDOMEN: Soft, no tenderness, no guarding or rigidity, liver spleen not palpable, no masses palpable. LYMPHATICS: No lymph nodes palpable in the axilla and neck. PSYCH: Alert and oriented x3; mood and affect normal. INVESTIGATIONS, reviewed in the clinical context: White count 7.3 hemoglobin 6.5 platelets 199 potassium 3.7 creatinine 0.50 EKG tracing personally reviewed by me-normal sinus rhythm, PVC nonspecific ST segment changes Chest x-ray film personally reviewed by me-patient rotated to the right, some cardiomegaly, pacemaker, possible some chronic changes Previous testing: Hemoglobin 7.4 on September 10 Assessment: -Acute on chronic GI bleed in a patient with known gastric ulcer disease. -Acute blood loss anemia from GI bleed,-symptomatic patient received one unit of blood -Chronic lower extremity DVT - [place] filter -Gastric ulcer disease -Ovivc-otcoqidsv-dncumvc mass, workup done at [facility].-biopsy showing smooth muscle mass, -Solitary gallstone, asymptomatic -Coronary artery disease -COPD in an ex-smoker -Chronic fibromyalgia -GERD -Hyperlipidemia -Essential hypertension -Primary osteoarthritis -Hypothyroid -Chronic multiple sclerosis -Peripheral neuropathy both the lower extremity -Chronic urinary incontinence -Chronic gait dysfunction uses a walker/wheelchair -[place] filter placed on August 09 plan: -Discussed with the patient. Does not want any endoscopy. Hemoglobin scoped 8.4. Breathing better. Recheck hemoglobin in the morning. If stable DC home. Discussed with the patient. Initially was on a clear liquid diet that'll be advanced. Past Medical History Past Medical History: Coronary Artery Disease (CAD), Chest Pain / Angina, Heart Failure, COPD, Eye Disorder, Fibromyalgia, GERD/Reflux, Hyperlipidemia, Hyperten william, Myocardial Infarction ([place]), Musculoskeletal Disorder, Neurologic Disorder, Osteoarthritis (OA), Pneumonia, Respiratory Disorder, Skin Disorder, Thyroid Disorder, Vascular Disorder Additional Past Medical History / Comment(s): 11/2012 [place] with cardiac arrest/vtach, chronic respiratory failure-uses home O2 prn 2-3L/NC, tracheobronchitis, tricuspid regurgitation, multiple sclerosis, neuropathy bilateral legs/feet, chronic back pain, DDD, migraines, bilateral carpal tunnel syndrome, past L/R rib fractures, past L hip fracture with surgery, PUD with ulcer rupture with surgery, peritonitis, pancreatitis, IBS/ ulcerative colitis, chronic anemia, UTIs, urinary incontinence, endometriosis, hypothyroid, R cataract and L eye cataract forming again, PVD, L leg cellulitis, Last Myocardial Infarction Date:: 2012 History of Any Multi-Drug Resistant Organisms: ESBL Date of last positivie culture/infection: 02/18/2014 MDRO Source:: Blood and Urine E. coli ESBL Past Surgical History: AICD, Appendectomy, Heart Catheterization, Heart Catheterization With Stent, Orthopedic Surgery, Pacemaker Additional Past Surgical History / Comment(s): Cardioversion, Laparotomy for ruptured gastric ulcer, R foot fracture with surgery, L hip fracture with surgery-has plate and screw, EGD, colonoscopies with bening polypectomy. Past Anesthesia/Blood Transfusion Reactions: No Reported Reaction Additional Past Anesthesia/Blood Transfusion Reaction / Comment(s): Pt has received blood in past without reaction. Date of Last Stent Placement:: 11/2012 Type of Cardiac Device: Permanent Pacemaker, AICD Device Placement Date:: 2012 Past Psychological History: Anxiety, Bipolar, Depression, Panic Disorder Additional Psychological History / Comment(s): pt. wouldn't stated she does'nt know how she ended up with a legal guardian shweta cooper.pt stated she lives [facility] -has help come in to do cleaning,cooking,bathing. Smoking Status: Former smoker Past Alcohol Use History: None Reported Additional Past Alcohol Use History / Comment(s): hx. alcohol abuse-last drank 12 yrs. ago patient is a smoker one pack per day for 40 years and quit 15 days ago. She has history of marijuana use in the past but none at this time. She also has history of alcohol abuse but quit 12 years ago. She is currently living on her own and has home care and assistance and plan to return there at the time of discharge. Past Drug Use History: None Reported - Past Family History Mother Family Medical History: Musculoskeletal Disorder Additional Family Medical History / Comment(s): MS Sister(s) Family Medical History: Myocardial Infarction ([place]) Additional Family Medical History / Comment(s): SISTER ALSO HAS MS Brother(s) Family Medical History: Musculoskeletal Disorder, Neurologic Disorder Additional Family Medical History / Comment(s): MS Father Additional Family Medical History / Comment(s): ETOH abuse, back surgery Medications and Allergies Home Medications Medication Instructions Recorded Confirmed Type Folic Acid 1 mg PO DAILY 04/08/14 09/15/19 History Thiamine [Vitamin B-1] 100 mg PO DAILY 04/13/15 09/15/19 History Cholecalciferol (Vitamin D3) 2,000 unit PO DAILY 09/27/18 09/15/19 History [Vitamin D3] Ferrous Sulfate [Iron (65 MG 325 mg PO BID 09/27/18 09/15/19 History Elemental)] Levothyroxine Sodium [Synthroid] 100 mcg PO DAILY 09/27/18 09/15/19 History Atorvastatin [Lipitor] 40 mg PO DAILY #30 tab 09/28/18 09/15/19 Rx Isosorbide Mononitrate ER [Imdur] 30 mg PO DAILY 02/06/19 09/15/19 History Albuterol Sulfate [Proair Hfa] 2 puff INHALATION RT-QID PRN 03/16/19 09/15/19 History Omeprazole 40 mg PO BID 03/16/19 09/15/19 History Gabapentin [Neurontin] 300 mg PO TID #9 cap 04/02/19 09/15/19 Rx Baclofen [Lioresal] 20 mg PO TID PRN 08/07/19 09/15/19 History Potassium Chloride ER [K-Dur 20] 20 meq PO DAILY 08/07/19 09/15/19 History Cyanocobalamin [Vitamin B-12] 1,000 mcg PO DAILY #30 tab 08/11/19 09/15/19 Rx ALPRAZolam [Xanax] 0.25 mg PO TID PRN 09/06/19 09/15/19 History Albuterol Nebulized [Ventolin 2.5 mg INHALATION RT-Q4H PRN 09/06/19 09/15/19 History Nebulized] Amiodarone HCl [Pacerone] 100 mg PO DAILY 09/06/19 09/15/19 History Furosemide [Lasix] 20 mg PO DAILY 09/06/19 09/15/19 History Ipratropium-Albuterol Nebulize 3 ml INHALATION RT-Q4H 09/06/19 09/15/19 History [Duoneb 0.5 mg-3 mg/3 ml Soln] oxyCODONE-APAP 5-325MG [Percocet 1 tab PO Q8H PRN 09/06/19 09/15/19 History 5-325 mg] ARIPiprazole [Abilify] 10 mg PO DAILY 09/07/19 09/15/19 History Citalopram Hydrobromide [CeleXA] 20 mg PO DAILY 09/07/19 09/15/19 History Meclizine [Antivert] 25 mg PO QID PRN 09/07/19 09/15/19 History Fexofenadine HCl [Genet Allergy] 180 mg PO DAILY 09/15/19 09/15/19 History Allergies Allergy/AdvReac Type Severity Reaction Status Date / Time Penicillins Allergy Swelling Verified 09/15/19 19:56 Physical Exam Vitals: Vital Signs Temp Pulse Pulse Resp BP BP Pulse Ox 09/16/19 09:28 73 97/52 100 09/16/19 07:33 72 09/16/19 07:20 72 09/16/19 05:00 97.6 F 69 18 105/65 100 09/16/19 02:53 98.1 F 66 16 101/59 09/16/19 00:04 98.0 F 71 18 102/52 99 09/16/19 00:00 16 09/15/19 23:34 97.8 F 69 16 101/54 100 09/15/19 23:24 98.2 F 71 16 96/55 97 09/15/19 20:35 97.7 F 73 17 95/59 100 09/15/19 20:09 75 16 101/56 100 09/15/19 18:14 80 18 106/71 99 09/15/19 17:34 98.9 F 77 16 93/64 100 Intake and Output 09/15/19 09/16/19 09/16/19 22:59 06:59 14:59 Intake Total 440 1020 Balance 440 1020 Intake: Intake, IV Titration 80 160 Amount Sodium Chloride 0.9% 1, 80 160 000 ml @ 20 mls/hr IV . Q24H [facility] Rx#:[id number] Oral 360 240 Blood Product 620 Rc As-1 Unit 310 [id number] Other: Voiding Method Diaper # Voids 1 1 Weight 58.513 kg Results CBC & Chem 7: 09/16/19 07:48 09/15/19 18:25 Labs: Abnormal Lab Results - Last 24 Hours (Table) 09/15/19 09/15/19 09/15/19 Range/Units 18:25 18:25 18:25 RBC 2.16 L (3.80-5.40) m/uL Hgb 6.5 L* (11.4-16.0) gm/dL Hct 21.4 L (34.0-46.0) % MCHC 30.2 L (31.0-37.0) g/dL RDW 15.8 H (11.5-15.5) % APTT 17.8 L (22.0-30.0) sec Sodium 130 L (137-145) mmol/L Chloride 97 L (98-107) mmol/L Creatinine 0.50 L (0.52-1.04) mg/dL Calcium 7.8 L (8.4-10.2) mg/dL Total Protein 4.8 L (6.3-8.2) g/dL Albumin 2.5 L (3.5-5.0) g/dL Crossmatch 09/15/19 09/16/19 Range/Units 18:53 07:48 RBC 2.71 L (3.80-5.40) m/uL Hgb 8.4 L D (11.4-16.0) gm/dL Hct 27.0 L (34.0-46.0) % MCHC (31.0-37.0) g/dL RDW (11.5-15.5) % APTT (22.0-30.0) sec Sodium (137-145) mmol/L Chloride (98-107) mmol/L Creatinine (0.52-1.04) mg/dL Calcium (8.4-10.2) mg/dL Total Protein (6.3-8.2) g/dL Albumin (3.5-5.0) g/dL Crossmatch See Detail Thrombosis Risk Factor Assmnt - Choose All That Apply Any of the Below Risk Factors Present?: Yes Each Factor Represents 1 point: Abnormal pulmonary function (COPD) Other Risk Factors: Yes Each Risk Factor Represents 2 Points: Age 61-74 years Each Risk Factor Represents 3 Points: Family history of DVT/PE, History of DVT/PE Other congenital or acquired thrombophilia - If yes, enter type in comment: No Thrombosis Risk Factor Assessment Total Risk Factor Score: 9 Thrombosis Risk Factor Assessment Level: High Risk
[2019-09-16] MEDS: LORATADINE 10 MG TAB PO PRN (21:07)
[2019-09-16] MEDS: BACLOFEN 10 MG TAB PO PRN (21:07)
[2019-09-16] MEDS: MECLIZINE 25 MG TAB PO PRN (21:08)
[2019-09-16] MEDS: SODIUM CHLORIDE 0.9% 1,000 ML IV SCH (21:09)
[2019-09-17] MEDS: IPRATROPIUM-ALBUTEROL 3 ML NEB INHALATION SCH ×5 (00:25→17:16)
--- NOTE | 2019-09-17 01:45 | CONS ---
CONSULTATION DATE OF DICTATION: 09/16/2019 REASON FOR CONSULTATION: Anemia and black tarry stools. HISTORY OF PRESENT ILLNESS: The patient is a 64-year-old, pleasant, white female with multiple hospitalizations in the last several months because of shortness of breath and anemia. She has been having some black tarry stools on and off. She came to the emergency room and was noted to have a hemoglobin of 5.6, and hence we are consulted for this issue. She was seen during her previous hospitalizations 2 weeks ago and prior to that, a month ago for the same reason, she was recommended to have an upper endoscopy several times, but she refused this. The patient was diagnosed with gastrointestinal stromal tumor at [facility] on EGD/EUS in February of 2019, was supposed to see Dr. Egan on an outpatient basis, but she states that she has not made an appointment yet. She has been having 1 or 2 black tarry stools every day. She reports no abdominal pain. She does complain of some shortness of breath. No chest pain. PAST MEDICAL HISTORY: Significant for hypothyroidism, recurrent anemia, COPD, anxiety, depression, degenerative joint disease, hypertension, hyperlipidemia, coronary artery disease in the past, hypothyroidism, fibromyalgia and gastroesophageal reflux disease. PAST SURGICAL HISTORY: Cardiac catheterization with stent placement, pacemaker implantation, prior history of exploratory laparotomy for perforated gastric ulcer, left hip surgery. FAMILY HISTORY: Mother with multiple sclerosis and sister also has multiple sclerosis. MEDICATIONS: Medications at home include Imdur, ProAir, omeprazole, potassium chloride, Lioresal, albuterol, Pacerone, Lasix, DuoNeb, Percocet, Abilify, Celexa, Antivert, folic acid, vitamin B1, D3, iron sulfate, and Synthroid. ALLERGIES: Allergies to PENICILLIN. SOCIAL HISTORY: Chronic smoker, quit smoking few years ago. No alcohol use. FAMILY HISTORY: As mentioned above. REVIEW OF SYSTEMS: CARDIOPULMONARY: No chest pain, does complain of shortness of breath. GENITOURINARY: No dysuria or hematuria. MUSCULOSKELETAL: Chronic back pain. ENT: Unremarkable. PSYCHIATRIC: Anxiety, depression. GI: As mentioned above. HEMATOLOGY: Severe recurrent anemia. ONCOLOGY: Diagnosis of stromal tumor of the stomach in February of 2019 at [facility]. CONSTITUTIONAL: No recent weight loss. No fever, chills, night sweats. PHYSICAL EXAMINATION: VITAL SIGNS: Blood pressure is 92/64, pulse rate 77, temperature 98.9. HEENT EXAMINATION: Unremarkable. Conjunctivae pink. Sclerae anicteric. Oral cavity, no lesions. NECK: No JVD or lymph node enlargement. CHEST: Clear to auscultation. HEART: Regular rate and rhythm. ABDOMEN: Soft, nontender, nondistended. Bowel sounds are positive. No organomegaly. EXTREMITIES: No pedal edema. NEURO: She is alert and oriented x3. No focal deficits. LABS: Labs from today: WBC 7.3, hemoglobin 6.5, platelets normal. Basic metabolic panel is within normal limits. PT/INR normal. BUN is 10, creatinine 0.5. IMPRESSION: 1. Severe symptomatic anemia with a hemoglobin of 5.6, status post two units of PRBC transfusion. Repeat hemoglobin is 8.4 g/dL. She has been having intermittent black tarry stools for the last several months duration, was diagnosed with peptic ulcer disease in February of 2019 as well as a stomal tumor of the stomach. 2. Exacerbation of chronic obstructive pulmonary disease. 3. History of anxiety, depression. 4. Coronary artery disease, status post myocardial infarction in the past. 5. History of hypothyroidism. RECOMMENDATIONS: 1. Agree with PRBC transfusion. 2. Continue Protonix 40 mg twice daily. 3. Continue with a clear liquid diet. 4. Once again discussed with the patient in detail regarding the need for an upper endoscopy to evaluate the source of bleeding and also re-evaluate the gastric stromal tumor. The patient wants to think about it. 5. At this time, we will follow with you closely. Thank you for this consultation. MMODL / IJN: [id number] /
[2019-09-17] MEDS: LEVOTHYROXINE 100 MCG TAB PO SCH (06:25)
[2019-09-17 08:27] LABS: Basophils % (A) 0 %; Eosinophils # (A) 0.3 k/uL (0-0.7); Eosinophils % (A) 3 %; HCT 25.3 % (34.0-46.0); HGB 7.6 gm/dL (11.4-16.0); Hypochromasia Marked; Lymphocytes # (A) 1.4 k/uL (1.0-4.8); Lymphocytes % (A) 17 %; MCHC 30.2 g/dL (31.0-37.0); MCV 99.3 fL (80.0-100.0); Macrocytosis Slight; Monocytes # (A) 0.5 k/uL (0-1.0); Monocytes % (A) 6 %; Neutrophils # (A) 6.2 k/uL (1.3-7.7); Neutrophils % (A) 72 %; Platelet Count 171 k/uL (150-450); Poikilocytosis Moderate; RBC 2.54 m/uL (3.80-5.40); RDW 15.4 % (11.5-15.5); WBC 8.5 k/uL (3.8-10.6)
[2019-09-17] MEDS: oxyCODONE-APAP 5-325MG 1 EACH TAB PO PRN (09:15)
[2019-09-17] MEDS: PANTOPRAZOLE 40 MG TABLET PO SCH (09:16)
[2019-09-17] MEDS: ATORVASTATIN 40 MG TAB PO SCH (09:16)
[2019-09-17] MEDS: FERROUS SULFATE 325 MG TAB PO SCH (09:16)
[2019-09-17] MEDS: CHOLECALCIFEROL 1,000 UNIT TAB PO SCH (09:16)
[2019-09-17] MEDS: POTASSIUM CHLORIDE ER 20 MEQ TAB.ER PO SCH (09:17)
[2019-09-17] MEDS: CYANOCOBALAMIN 500 MCG TAB PO SCH (09:17)
[2019-09-17] MEDS: FOLIC ACID 1 MG TAB PO SCH (09:17)
[2019-09-17] MEDS: CITALOPRAM HYDROBROMIDE 20 MG TAB PO SCH (09:17)
[2019-09-17] MEDS: THIAMINE 100 MG TAB PO SCH (09:17)
[2019-09-17] MEDS: FUROSEMIDE 20 MG TAB PO SCH (09:17)
[2019-09-17] MEDS: GABAPENTIN 300 MG CAP PO SCH (09:17)
[2019-09-17] MEDS: ARIPiprazole 10 MG TAB PO SCH (09:17)
[2019-09-17] MEDS: ISOSORBIDE MONONITRATE ER 30 MG TAB.ER.24H PO SCH (09:19)
[2019-09-17] MEDS: BACLOFEN 10 MG TAB PO PRN (09:21)
[2019-09-17 13:03] VITALS: BP 93/61; PULSE 79; RESP 10; TEMP 98.6
[2019-09-17] MEDS: AMIODARONE 100 MG TAB PO SCH (14:49)
--- NOTE | 2019-09-17 18:38 | PN ---
PROGRESS NOTE DATE OF DICTATION: 09/17/2019 This patient is a 64-year-old white female admitted to hospital with shortness of breath and melena. She had a hemoglobin of 6.5 requiring one unit of blood transfusion. She was seen in consultation yesterday and recommended an upper endoscopy and she wanted to think. This morning patient refused to have the procedure done. Her hemoglobin is stable at 7.4 g/dL. She is being discharged home today. PHYSICAL EXAMINATION: Appears comfortable. No apparent distress. Vital signs are stable. Blood pressure 93/61, pulse rate 79, temperature 98.6. HEENT examination unremarkable. Conjunctivae pink. Sclerae anicteric. Oral cavity no lesions. NECK: No JVD or lymph node enlargement. CHEST: Clear to auscultation. Decreased breath sounds bilaterally. HEART: Regular rate and rhythm. ABDOMEN: Soft. Bowel sounds are positive. No organomegaly. EXTREMITIES: No pedal edema. NEUROLOGIC: Alert and oriented x3. No focal deficits. LABS: Labs from today show hemoglobin 7.6, WBC 8.5, platelets normal. IMPRESSION: 1. Recurrent anemia with a hemoglobin of 6.5, needing one unit of blood transfusion. Hemoglobin is 7.6 g/dL. Patient had multiple hospitalizations over the last 6 months with the same symptoms and refusing to have an upper endoscopy. 2. Gastric stromal tumor diagnosed at [facility] in February of 2019. Patient did not follow up with Oncology. 3. Exacerbation of chronic obstructive pulmonary disease. RECOMMENDATIONS: 1. Advance diet as tolerated. 2. Patient refusing endoscopy at this time. 3. Will sign off. Please call us if needed. Thank you for this consultation. MMODL / IJN: [id number] /
--- NOTE | 2019-09-17 22:27 | P.DS ---
Providers Date of admission: 09/15/19 19:21 Expected date of discharge: 09/17/19 Attending physician: Adolfo Bay Consults: 09/15/19 19:32 Consult Physician Routine Consulting Provider: Cameron Quiros Consult Reason/Comments: acute on chronic anemia, history of GI bleed Do you want consulting provider notified?: Yes Primary care physician: Alexei Vera MD Hospital Course: Chief Complaint: Shortness of breath history of presenting complaint: This is a 63-year-old patient who follows with visiting physicians Dr. Vera.. Normally uses a wheelchair or a walker to get about. Chronic stable medical conditions include, coronary artery disease, COPD in an ex-smoker, chronic fibromyalgia, GERD, hyperlipidemia, essential hypertension, osteoarthritis, hypothyroid, chronic multiple sclerosis, peripheral neuropathy lower extremity, chronic urinary incontinence. Patient also was worked up at [facility] for a gastric greater curvature mass which eventually showed up to be normal smooth muscle cells. Also's chronic intermittent GI bleed from a gastric ulcer. Patient admitted to the hospital on August 06 with a diagnosis of bilateral lower extremity DVT. Could not tolerate IV heparin because of intermittent dark stools for some time. Did require blood transfusion. [place] filter was placed. Patient declined any endoscopy. Patient admitted from August 2018 through September 07. The hemoglobin of 6. 2 units of blood were given. Patient again declined endoscopy. Patient now presented to the ER for shortness of breath. No cough. No fever no chills. Patient is continued to have intermittent docs stools. Hemoglobin was found to be 6.5. Given a unit of blood. Hemoglobin this morning 8.4. Breathing much improved. No abdominal pain. Patient again does not want any endoscopy. Admitted with symptomatic anemia causing shortness of breath. Transfuse a unit of blood. Hemoglobin did call from 6.5-7.6 today. Today-patient comfortable.. Baseline. Tolerating diet. Able to go home. Consultation: Dr. Eliza Solis from GI Physical examination: VITAL SIGNS: 98.6, 79, 93/61, 97% on 2 L GENERAL: Laying in bed, awake EYES: Pupils equal. Conjunctiva pale HEENT: External appearance of nose and ears normal, oral cavity grossly normal. Slight puffiness of the right side cheek, with no tenderness-patient has no skin NECK: JVD not raised; masses not palpable. HEART: First and second heart sounds are normal; mild edema. LUNGS: Respiratory rate increased, decreased breath sounds. ABDOMEN: Soft, no tenderness, no guarding or rigidity, liver spleen not palpable, no masses palpable. PSYCH: Alert and oriented x3; mood and affect normal. INVESTIGATIONS, reviewed in the clinical context: Hemoglobin 7.6 Previous testing White count 7.3 hemoglobin 6.5 platelets 199 potassium 3.7 creatinine 0.50 EKG tracing personally reviewed by me-normal sinus rhythm, PVC nonspecific ST segment changes Chest x-ray film personally reviewed by me-patient rotated to the right, some cardiomegaly, pacemaker, possible some chronic changes Previous testing: Hemoglobin 7.4 on September 10 Assessment: -Acute on chronic GI bleed in a patient with known gastric ulcer disease.. Patient has persistently been refusing endoscopy. -Acute blood loss anemia from GI bleed,-symptomatic patient received one unit of blood -Chronic lower extremity DVT - Colton filter -Gastric ulcer disease -[id number] mass, workup done at [facility].-biopsy showing smooth muscle mass, -Solitary gallstone, asymptomatic -Coronary artery disease -COPD in an ex-smoker -Chronic fibromyalgia -GERD -Hyperlipidemia -Essential hypertension -Primary osteoarthritis -Hypothyroid -Chronic multiple sclerosis -Peripheral neuropathy both the lower extremity -Chronic urinary incontinence -Chronic gait dysfunction uses a walker/wheelchair -[place] filter placed on August 09 Disposition: Home Patient Condition at Discharge: Undetermined Plan - Discharge Summary New Discharge Prescriptions: Continue Folic Acid 1 mg PO DAILY Thiamine [Vitamin B-1] 100 mg PO DAILY Cholecalciferol (Vitamin D3) [Vitamin D3] 2,000 unit PO DAILY Ferrous Sulfate [Iron (65 MG Elemental)] 325 mg PO BID Levothyroxine Sodium [Synthroid] 100 mcg PO DAILY Atorvastatin [Lipitor] 40 mg PO DAILY #30 tab Isosorbide Mononitrate ER [Imdur] 30 mg PO DAILY Omeprazole 40 mg PO BID Albuterol Sulfate [Proair Hfa] 2 puff INHALATION RT-QID PRN PRN Reason: Shortness Of Breath Gabapentin [Neurontin] 300 mg PO TID #9 cap Potassium Chloride ER [K-Dur 20] 20 meq PO DAILY Baclofen [Lioresal] 20 mg PO TID PRN PRN Reason: Pain Cyanocobalamin [Vitamin B-12] 1,000 mcg PO DAILY #30 tab Albuterol Nebulized [Ventolin Nebulized] 2.5 mg INHALATION RT-Q4H PRN PRN Reason: Shortness Of Breath Amiodarone HCl [Pacerone] 100 mg PO DAILY Furosemide [Lasix] 20 mg PO DAILY Ipratropium-Albuterol Nebulize [Duoneb 0.5 mg-3 mg/3 ml Soln] 3 ml INHALATION RT-Q4H oxyCODONE-APAP 5-325MG [Percocet 5-325 mg] 1 tab PO Q8H PRN PRN Reason: Pain ALPRAZolam [Xanax] 0.25 mg PO TID PRN PRN Reason: Anxiety ARIPiprazole [Abilify] 10 mg PO DAILY Citalopram Hydrobromide [CeleXA] 20 mg PO DAILY Meclizine [Antivert] 25 mg PO QID PRN PRN Reason: Vertigo Fexofenadine HCl [Genet Allergy] 180 mg PO DAILY Discharge Medication List Folic Acid 1 mg PO DAILY 04/08/14 [History] Thiamine [Vitamin B-1] 100 mg PO DAILY 04/13/15 [History] Cholecalciferol (Vitamin D3) [Vitamin D3] 2,000 unit PO DAILY 09/27/18 [History] Ferrous Sulfate [Iron (65 MG Elemental)] 325 mg PO BID 09/27/18 [History] Levothyroxine Sodium [Synthroid] 100 mcg PO DAILY 09/27/18 [History] Atorvastatin [Lipitor] 40 mg PO DAILY #30 tab 09/28/18 [Rx] Isosorbide Mononitrate ER [Imdur] 30 mg PO DAILY 02/06/19 [History] Albuterol Sulfate [Proair Hfa] 2 puff INHALATION RT-QID PRN 03/16/19 [History] Omeprazole 40 mg PO BID 03/16/19 [History] Gabapentin [Neurontin] 300 mg PO TID #9 cap 04/02/19 [Rx] Baclofen [Lioresal] 20 mg PO TID PRN 08/07/19 [History] Potassium Chloride ER [K-Dur 20] 20 meq PO DAILY 08/07/19 [History] Cyanocobalamin [Vitamin B-12] 1,000 mcg PO DAILY #30 tab 08/11/19 [Rx] ALPRAZolam [Xanax] 0.25 mg PO TID PRN 09/06/19 [History] Albuterol Nebulized [Ventolin Nebulized] 2.5 mg INHALATION RT-Q4H PRN 09/06/19 [History] Amiodarone HCl [Pacerone] 100 mg PO DAILY 09/06/19 [History] Furosemide [Lasix] 20 mg PO DAILY 09/06/19 [History] Ipratropium-Albuterol Nebulize [Duoneb 0.5 mg-3 mg/3 ml Soln] 3 ml INHALATION RT-Q4H 09/06/19 [History] oxyCODONE-APAP 5-325MG [Percocet 5-325 mg] 1 tab PO Q8H PRN 09/06/19 [History] ARIPiprazole [Abilify] 10 mg PO DAILY 09/07/19 [History] Citalopram Hydrobromide [CeleXA] 20 mg PO DAILY 09/07/19 [History] Meclizine [Antivert] 25 mg PO QID PRN 09/07/19 [History] Fexofenadine HCl [Genet Allergy] 180 mg PO DAILY 09/15/19 [History] Follow up Appointment(s)/Referral(s): Alexei Vera MD [Primary Care Provider] - 1-2 days (The office will make your appointment and let you know a time and date.) Patient Instructions/Handouts: Gastrointestinal Bleeding (DC), Anemia (DC) Activity/Diet/Wound Care/Special Instructions: labwork - CBC in 3 days Activity limited until followup. Diet as tolerated. Discharge Disposition: HOME SELF-CARE
== END 2019-09-17 17:17 | disposition home health service (06) ==
LOC: EC 17:26 → 5NMEDONC 19:21 → INTOOBSV 19:21 → 5NMEDONC 19:45 → UNDODISIN 09-17 17:17
PROVIDERS: ADMIT Hospitalist; ATTEND Hospitalist
DX: K25.4 Chronic or unspecified gastric ulcer with hemorrhage (principal); D62 Acute posthemorrhagic anemia; E87.1 Hypo-osmolality and hyponatremia; I82.503 Chronic embolism and thrombosis of unspecified deep veins of lower extremity, bilateral; Z95.828 Presence of other vascular implants and grafts; I11.0 Hypertensive heart disease with heart failure; I50.9 Heart failure, unspecified; C49.A0 Gastrointestinal stromal tumor, unspecified site; K80.80 Other cholelithiasis without obstruction; I25.119 Atherosclerotic heart disease of native coronary artery with unspecified angina pectoris; Z03.818 Encounter for observation for suspected exposure to other biological agents ruled out; J44.9 Chronic obstructive pulmonary disease, unspecified; Z87.891 Personal history of nicotine dependence; M79.7 Fibromyalgia; K21.9 Gastro-esophageal reflux disease without esophagitis; E78.5 Hyperlipidemia, unspecified; M19.90 Unspecified osteoarthritis, unspecified site; E03.9 Hypothyroidism, unspecified; I95.9 Hypotension, unspecified; G35 Multiple sclerosis; G62.9 Polyneuropathy, unspecified; R32 Unspecified urinary incontinence; R26.9 Unspecified abnormalities of gait and mobility; I25.2 Old myocardial infarction; Z87.01 Personal history of pneumonia (recurrent); J96.10 Chronic respiratory failure, unspecified whether with hypoxia or hypercapnia; Z99.81 Dependence on supplemental oxygen; I07.1 Rheumatic tricuspid insufficiency; G89.29 Other chronic pain; M54.9 Dorsalgia, unspecified; G43.909 Migraine, unspecified, not intractable, without status migrainosus; J40 Bronchitis, not specified as acute or chronic; Z87.81 Personal history of (healed) traumatic fracture; G56.03 Carpal tunnel syndrome, bilateral upper limbs; K58.9 Irritable bowel syndrome, unspecified; K52.89 Other specified noninfective gastroenteritis and colitis; H25.13 Age-related nuclear cataract, bilateral; I73.9 Peripheral vascular disease, unspecified; Z86.19 Personal history of other infectious and parasitic diseases; Z95.810 Presence of automatic (implantable) cardiac defibrillator; Z95.5 Presence of coronary angioplasty implant and graft; Z98.890 Other specified postprocedural states; F41.9 Anxiety disorder, unspecified; F31.9 Bipolar disorder, unspecified; F41.0 Panic disorder [episodic paroxysmal anxiety]; Z82.69 Family history of other diseases of the musculoskeletal system and connective tissue; Z82.49 Family history of ischemic heart disease and other diseases of the circulatory system; Z81.1 Family history of alcohol abuse and dependence; Z79.890 Hormone replacement therapy; Z79.899 Other long term (current) drug therapy; Z79.891 Long term (current) use of opiate analgesic; Z88.0 Allergy status to penicillin
CPT/HCPCS: 96360; 96361; 99285; 36415; 94640 ×4; 93005; 86900; 86901; 83880; 80053; 84484; 85025 ×3; 85610; 85730; 86850; 86920; 71046; G0378 ×3; P9016; U0003

== ENCOUNTER 2019-09-20 12:01 | Inpatient (IN) | payer OTHER ==
[2019-09-20] MEDS ORDERED: PANTOPRAZOLE 40 MG/10 ML VIAL IVP STA (12:36)
--- NOTE | 2019-09-20 12:39 | ED ---
General Adult HPI - General Chief complaint: GI Bleed Stated complaint: GI Bleed Time Seen by Provider: 09/20/19 12:04 Source: patient, EMS, RN notes reviewed, old records reviewed Mode of arrival: EMS Limitations: no limitations - History of Present Illness Initial comments: 64-year-old female presenting for evaluation of generalized weakness, melanotic stool, recent history of GI bleed. Patient states she was here recently and was encouraged to undergo upper GI endoscopy but had refused at that time. She was previously on antiplatelet medication and had a anemia secondary to GI bleed. She was discharged but states she continues to have dark stool and feels quite weak. She has history of COPD and is on home oxygen. She denies current blood thinners. - Related Data Home Medications Medication Instructions Recorded Confirmed Folic Acid 1 mg PO DAILY 04/08/14 09/20/19 Thiamine [Vitamin B-1] 100 mg PO DAILY 04/13/15 09/20/19 Cholecalciferol (Vitamin D3) 2,000 unit PO DAILY 09/27/18 09/20/19 [Vitamin D3] Ferrous Sulfate [Iron (65 MG 325 mg PO BID 09/27/18 09/20/19 Elemental)] Levothyroxine Sodium [Synthroid] 100 mcg PO DAILY 09/27/18 09/20/19 Isosorbide Mononitrate ER [Imdur] 30 mg PO DAILY 02/06/19 09/20/19 Albuterol Sulfate [Proair Hfa] 2 puff INHALATION RT-QID PRN 03/16/19 09/20/19 Omeprazole 40 mg PO BID 03/16/19 09/20/19 Baclofen [Lioresal] 20 mg PO TID PRN 08/07/19 09/20/19 Potassium Chloride ER [K-Dur 20] 20 meq PO DAILY 08/07/19 09/20/19 ALPRAZolam [Xanax] 0.25 mg PO TID PRN 09/06/19 09/20/19 Albuterol Nebulized [Ventolin 2.5 mg INHALATION RT-Q4H PRN 09/06/19 09/20/19 Nebulized] Amiodarone HCl [Pacerone] 100 mg PO DAILY 09/06/19 09/20/19 Furosemide [Lasix] 20 mg PO DAILY 09/06/19 09/20/19 Ipratropium-Albuterol Nebulize 3 ml INHALATION RT-Q4H 09/06/19 09/20/19 [Duoneb 0.5 mg-3 mg/3 ml Soln] oxyCODONE-APAP 5-325MG [Percocet 1 tab PO Q8H PRN 09/06/19 09/20/19 5-325 mg] ARIPiprazole [Abilify] 10 mg PO DAILY 09/07/19 09/20/19 Citalopram Hydrobromide [CeleXA] 20 mg PO DAILY 09/07/19 09/20/19 Meclizine [Antivert] 25 mg PO QID PRN 09/07/19 09/20/19 Fexofenadine HCl [Genet Allergy] 180 mg PO DAILY 09/15/19 09/20/19 Previous Rx's Medication Instructions Recorded Atorvastatin [Lipitor] 40 mg PO DAILY #30 tab 09/28/18 Gabapentin [Neurontin] 300 mg PO TID #9 cap 04/02/19 Cyanocobalamin [Vitamin B-12] 1,000 mcg PO DAILY #30 tab 08/11/19 Allergies Allergy/AdvReac Type Severity Reaction Status Date / Time Penicillins Allergy Swelling Verified 09/20/19 12:15 Review of Systems ROS Statement: Those systems with pertinent positive or pertinent negative responses have been documented in the HPI. ROS Other: All systems not noted in ROS Statement are negative. Past Medical History Past Medical History: Coronary Artery Disease (CAD), Chest Pain / Angina, Heart Failure, COPD, Eye Disorder, Fibromyalgia, GERD/Reflux, Hyperlipidemia, Hypert ension, Myocardial Infarction ([place]), Musculoskeletal Disorder, Neurologic Disorder, Osteoarthritis (OA), Pneumonia, Respiratory Disorder, Skin Disorder, Thyroid Disorder, Vascular Disorder Additional Past Medical History / Comment(s): 11/2012 [place] with cardiac arrest/vtach, chronic respiratory failure-uses home O2 prn 2-3L/NC, tracheobronchitis, tricuspid regurgitation, multiple sclerosis, neuropathy bilateral legs/feet, chronic back pain, DDD, migraines, bilateral carpal tunnel syndrome, past L/R rib fractures, past L hip fracture with surgery, PUD with ulcer rupture with surgery, peritonitis, pancreatitis, IBS/ ulcerative colitis, chronic anemia, UTIs, urinary incontinence, endometriosis, hypothyroid, R cataract and L eye cataract forming again, PVD, L leg cellulitis, Last Myocardial Infarction Date:: 2012 History of Any Multi-Drug Resistant Organisms: ESBL Date of last positivie culture/infection: 02/18/2014 MDRO Source:: Blood and Urine E. coli ESBL Past Surgical History: AICD, Appendectomy, Heart Catheterization, Heart Catheterization With Stent, Orthopedic Surgery, Pacemaker Additional Past Surgical History / Comment(s): Cardioversion, Laparotomy for ruptured gastric ulcer, R foot fracture with surgery, L hip fracture with surgery-has plate and screw, EGD, colonoscopies with bening polypectomy. Past Anesthesia/Blood Transfusion Reactions: No Reported Reaction Additional Past Anesthesia/Blood Transfusion Reaction / Comment(s): Pt has received blood in past without reaction. Date of Last Stent Placement:: 11/2012 Type of Cardiac Device: Permanent Pacemaker, AICD Device Placement Date:: 2012 Past Psychological History: Anxiety, Bipolar, Depression, Panic Disorder Smoking Status: Former smoker Past Alcohol Use History: None Reported Past Drug Use History: None Reported - Past Family History Mother Family Medical History: Musculoskeletal Disorder Additional Family Medical History / Comment(s): MS Sister(s) Family Medical History: Myocardial Infarction ([place]) Additional Family Medical History / Comment(s): SISTER ALSO HAS MS Brother(s) Family Medical History: Musculoskeletal Disorder, Neurologic Disorder Additional Family Medical History / Comment(s): MS Father Additional Family Medical History / Comment(s): ETOH abuse, back surgery General Exam Limitations: no limitations General appearance: alert, in no apparent distress Head exam: Present: atraumatic, normocephalic Eye exam: Present: normal appearance, PERRL ENT exam: Present: normal exam Neck exam: Present: normal inspection. Absent: tenderness, meningismus Respiratory exam: Present: wheezes, decreased breath sounds. Absent: respiratory distress Cardiovascular Exam: Present: regular rate, normal rhythm GI/Abdominal exam: Present: soft. Absent: distended, tenderness, guarding Rectal exam: Present: normal inspection, black stool Extremities exam: Present: normal inspection, normal capillary refill. Absent: pedal edema Neurological exam: Present: alert, oriented X3 Psychiatric exam: Present: normal affect, normal mood Skin exam: Present: warm, dry, pallor Course Vital Signs 09/20/19 09/20/19 09/20/19 12:04 13:52 14:35 Temperature 98.2 F Pulse Rate 77 73 64 Respiratory 18 18 18 Rate Blood Pressure 111/73 120/78 102/60 O2 Sat by Pulse 99 100 97 Oximetry EKG Findings - EKG Comments: EKG Findings:: EKG: Sinus rhythm with frequent PVC, low voltage, rate of 76, MN interval 128, QRS duration 84, QTC 398, no ST segment elevation. Medical Decision Making - Medical Decision Making 64-year-old female with GI bleed, anemia. Patient has hemoglobin 7.1, melanotic stool which is heme positive. She had previously refused endoscopy blood states that she will undergo this procedure at this time. She has large let abno rmalities including hyponatremia 129. She is placed on a proton pump inhibitor in the emergency department. Her hemoglobin will be trended. I discussed case both with Dr. Bay and Dr. Solis. - Lab Data Result diagrams: 09/20/19 13:35 09/20/19 13:35 Lab Results 09/20/19 09/20/19 09/20/19 Range/Units 13:33 13:35 13:35 WBC 5.1 (3.8-10.6) k/uL RBC 2.38 L (3.80-5.40) m/uL Hgb 7.1 L (11.4-16.0) gm/dL Hct 23.4 L (34.0-46.0) % MCV 98.4 (80.0-100.0) fL MCH 29.8 (25.0-35.0) pg MCHC 30.3 L (31.0-37.0) g/dL RDW 15.7 H (11.5-15.5) % Plt Count 245 (150-450) k/uL Neutrophils % 78 % Lymphocytes % 15 % Monocytes % 4 % Eosinophils % 2 % Basophils % 0 % Neutrophils # 4.0 (1.3-7.7) k/uL Lymphocytes # 0.7 L (1.0-4.8) k/uL Monocytes # 0.2 (0-1.0) k/uL Eosinophils # 0.1 (0-0.7) k/uL Basophils # 0.0 (0-0.2) k/uL Hypochromasia Marked Poikilocytosis Moderate Macrocytosis Slight PT 11.5 (9.0-12.0) sec INR 1.1 (<1.2) APTT 22.3 (22.0-30.0) sec Sodium (137-145) mmol/L Potassium (3.5-5.1) mmol/L Chloride (98-107) mmol/L Carbon Dioxide (22-30) mmol/L Anion Gap mmol/L BUN (7-17) mg/dL Creatinine (0.52-1.04) mg/dL Est GFR (CKD-EPI)AfAm (>60 ml/min/1.73 sqM) Est GFR (CKD-EPI)NonAf (>60 ml/min/1.73 sqM) Glucose (74-99) mg/dL Calcium (8.4-10.2) mg/dL Magnesium (1.6-2.3) mg/dL Total Bilirubin (0.2-1.3) mg/dL AST (14-36) U/L ALT (4-34) U/L Alkaline Phosphatase (38-126) U/L Total Protein (6.3-8.2) g/dL Albumin (3.5-5.0) g/dL Stool Occult Blood Positive H (Negative) Blood Type Blood Type Recheck Bld Type Recheck Status Antibody Screen Spec Expiration Date 09/20/19 09/20/19 Range/Units 13:35 13:35 WBC (3.8-10.6) k/uL RBC (3.80-5.40) m/uL Hgb (11.4-16.0) gm/dL Hct (34.0-46.0) % MCV (80.0-100.0) fL MCH (25.0-35.0) pg MCHC (31.0-37.0) g/dL RDW (11.5-15.5) % Plt Count (150-450) k/uL Neutrophils % % Lymphocytes % % Monocytes % % Eosinophils % % Basophils % % Neutrophils # (1.3-7.7) k/uL Lymphocytes # (1.0-4.8) k/uL Monocytes # (0-1.0) k/uL Eosinophils # (0-0.7) k/uL Basophils # (0-0.2) k/uL Hypochromasia Poikilocytosis Macrocytosis PT (9.0-12.0) sec INR (<1.2) APTT (22.0-30.0) sec Sodium 129 L (137-145) mmol/L Potassium 5.3 H (3.5-5.1) mmol/L Chloride 98 (98-107) mmol/L Carbon Dioxide 29 (22-30) mmol/L Anion Gap 2 mmol/L BUN 13 (7-17) mg/dL Creatinine 0.44 L (0.52-1.04) mg/dL Est GFR (CKD-EPI)AfAm >90 (>60 ml/min/1.73 sqM) Est GFR (CKD-EPI)NonAf >90 (>60 ml/min/1.73 sqM) Glucose 88 (74-99) mg/dL Calcium 7.9 L (8.4-10.2) mg/dL Magnesium 1.7 (1.6-2.3) mg/dL Total Bilirubin 0.8 (0.2-1.3) mg/dL AST 50 H (14-36) U/L ALT 9 (4-34) U/L Alkaline Phosphatase 29 L (38-126) U/L Total Protein 4.8 L (6.3-8.2) g/dL Albumin 2.3 L (3.5-5.0) g/dL Stool Occult Blood (Negative) Blood Type A Positive Blood Type Recheck A Pos Bld Type Recheck Status No Antibody Screen NEGATIVE Spec Expiration Date 09/23/20192334 Disposition Clinical Impression: Melena, Weakness, Anemia Disposition: ADMITTED IP TO THIS [facility] Condition: Stable Is patient prescribed a controlled substance at d/c from ED?: No Referrals: Alexei Vera MD [Primary Care Provider] - 1-2 days Decision to Admit Reason: Admit from EC Decision Date: 09/20/19 Decision Time: 14:52
[2019-09-20] MEDS ORDERED: oxyCODONE-APAP 5-325MG 1 EACH TAB PO STA (13:54)
[2019-09-20 14:00] LABS: Basophils % (A) 0 %; Eosinophils # (A) 0.1 k/uL (0-0.7); Eosinophils % (A) 2 %; HCT 23.4 % (34.0-46.0); HGB 7.1 gm/dL (11.4-16.0); Hypochromasia Marked; Lymphocytes # (A) 0.7 k/uL (1.0-4.8); Lymphocytes % (A) 15 %; MCH 29.8 pg (25.0-35.0); MCHC 30.3 g/dL (31.0-37.0); MCV 98.4 fL (80.0-100.0); Macrocytosis Slight; Monocytes # (A) 0.2 k/uL (0-1.0); Monocytes % (A) 4 %; Neutrophils % (A) 78 %; Platelet Count 245 k/uL (150-450); Poikilocytosis Moderate; RBC 2.38 m/uL (3.80-5.40); RDW 15.7 % (11.5-15.5); WBC 5.1 k/uL (3.8-10.6)
[2019-09-20 14:10] LABS: ALT 9 U/L (4-34); AST 50 U/L (14-36); African American GFR (CKD) >90 (>60 ml/min/1.73 sqM); Albumin 2.3 g/dL (3.5-5.0); Alkaline Phosphatase 29 U/L (38-126); Anion Gap 2 mmol/L; Blood Urea Nitrogen 13 mg/dL (7-17); Calcium 7.9 mg/dL (8.4-10.2); Carbon Dioxide 29 mmol/L (22-30); Chloride 98 mmol/L (98-107); Glucose 88 mg/dL (74-99); Magnesium 1.7 mg/dL (1.6-2.3); Non-African American GFR(CKD) >90 (>60 ml/min/1.73 sqM); Sodium 129 mmol/L (137-145); Total Bilirubin 0.8 mg/dL (0.2-1.3); Total Protein 4.8 g/dL (6.3-8.2)
[2019-09-20 14:12] LABS: Potassium 5.3 mmol/L (3.5-5.1)
[2019-09-20 14:20] LABS: INR 1.1 (<1.2); Partial Thromboplastin Time 22.3 sec (22.0-30.0); Prothrombin Time 11.5 sec (9.0-12.0)
[2019-09-20] MEDS ORDERED: ONDANSETRON 4 MG/2 ML VIAL IVP PRN (14:42)
[2019-09-20] MEDS ORDERED: ACETAMINOPHEN TAB 325 MG TAB PO PRN (14:42)
[2019-09-20] MEDS ORDERED: NALOXONE 0.4 MG/ML 1 ML VIAL IV PRN (14:42)
[2019-09-20] MEDS ORDERED: ALPRAZolam 0.25 MG TAB PO PRN (19:22)
[2019-09-20] MEDS ORDERED: ALBUTEROL NEBULIZED 2.5 MG/3 ML INHALATION PRN (19:22)
[2019-09-20] MEDS ORDERED: ALBUTEROL HFA INHALER INHALATION PRN (19:22)
[2019-09-20] MEDS ORDERED: MAG HYDROX/AL HYDROX/SIMETH 30 ML CUP PO PRN (19:26)
[2019-09-20] MEDS: MORPHINE SULFATE 4 MG/ML SYRINGE IV PRN ×2 (19:26→23:39)
[2019-09-20] MEDS ORDERED: CALCIUM CARBONATE 500 MG CHEWABLE PO PRN (19:26)
[2019-09-20] MEDS ORDERED: MELATONIN 3 MG TABLET PO PRN (19:26)
--- NOTE | 2019-09-20 19:32 | P.HPIM ---
History of Present Illness H&P Date: 09/20/19 Chief Complaint: Weakness, dark stools history of presenting complaint: This is a 63-year-old patient who follows with visiting physicians Dr. Valle. Normally uses a wheelchair or a walker to get about. Chronic stable medical conditions include, coronary artery disease, COPD in an ex-smoker, chronic fibromyalgia, GERD, hyperlipidemia, essential hypertension, osteoarthritis, hypothyroid, chronic multiple sclerosis, peripheral neuropathy lower extremity, chronic urinary incontinence. Patient also was worked up at [facility] for a gastric greater curvature mass which eventually showed up to be normal smooth muscle cells. Also's chronic intermittent GI bleed from a gastric ulcer. Patient admitted to the hospital on August 06 with a diagnosis of bilateral low er extremity DVT. Could not tolerate IV heparin because of intermittent dark stools for some time. Did require blood transfusion. Colton filter was placed. Patient declined any endoscopy. Patient admitted from August 2018 through September 07. The hemoglobin of 6. 2 units of blood were given. Patient again declined endoscopy. Readmitted from September 14 through September 16. With dark stools. Received another unit of blood. Declined endoscopy. Discharge. He again presents with Dr. Yamilet castillo feeling weak tired rundown. Hemoglobin was 7.6 on September 16. Today to 7.1. Now agreeable for a endoscopy. Review of systems: GEN.: Tired EYES: None HEENT: Decreased hearing NECK: None RESPIRATORY: As above CARDIOVASCULAR: None GASTROINTESTINAL: Intermittent abdominal pain with dark stools GENITOURINARY: None MUSCULOSKELETAL: joint pain LYMPHATICS: None HEMATOLOGICAL: None PSYCHIATRY: None NEUROLOGICAL: does use a wheelchair or a walker-rest as above Past medical history to include: Coronary artery disease, COPD in an ex-smoker, chronic fibromyalgia, GERD, hyperlipidemia, essential hypertension, osteoarthritis, hypothyroid, chronic multiple sclerosis, peripheral neuropathy lower extremity, chronic urinary incontinence, 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 Has a friend Alvarado who spends most of the day with her. uses walker and/or wheelchair history of alcohol abuse last drink over 20 years ago. Also smoked a pack a day for close to 40 years up until very recently. Physical examination: VITAL SIGNS: 97.9, 77, 16, 113/62, 97% on 2 L GENERAL: Laying in bed, awake EYES: Pupils equal. Conjunctiva pale HEENT: External appearance of nose and ears normal, oral cavity grossly normal. Slight puffiness of the right side cheek, with no tenderness-patient has no skin NECK: JVD not raised; masses not palpable. HEART: First and second heart sounds are normal; mild edema. LUNGS: Respiratory rate increased, decreased breath sounds. ABDOMEN: Soft, no tenderness, no guarding or rigidity, liver spleen not palpable, no masses palpable. LYMPHATICS: No lymph nodes palpable in the axilla and neck. PSYCH: Alert and oriented x3; mood and affect normal. INVESTIGATIONS, reviewed in the clinical context: White count 5.1 hemoglobin 7.1 potassium 4.3 creatinine 0.44 Previous testing: Hemoglobin 7.6 on September 16 Assessment: -Acute on chronic GI bleed in a patient with known gastric ulcer disease. Patient is refusing endoscopy previously. I agreeable to same. -Acute blood loss anemia from GI bleed,-symptomatic will be given one unit of blood -Chronic lower extremity DVT - Larkspur filter -Gastric ulcer disease -Orcmq-iumbnbhwy-ebmwwop mass, workup done at [facility].-biopsy showing smooth muscle mass, -Solitary gallstone, asymptomatic -Coronary artery disease -COPD in an ex-smoker -Chronic fibromyalgia -GERD -Hyperlipidemia -Essential hypertension -Primary osteoarthritis -Hypothyroid -Chronic multiple sclerosis -Peripheral neuropathy both the lower extremity -Chronic urinary incontinence -Chronic gait dysfunction uses a walker/wheelchair -L[place] filter placed on August 09 plan: -Discussed with the patient. Patient agreeable to proceed with the upper GI endoscopy. Did communicate with Dr. Eliza Solis. Patient be made nothing by mouth after midnight except for medications. Transfuse a unit of blood from being symptomatic. Past Medical History Past Medical History: Coronary Artery Disease (CAD), Chest Pain / Angina, Heart Failure, COPD, Deep Vein Thrombosis (DVT), Eye Disorder, Fibromyalgia, GERD/Reflux, GI Bleed, Hyperlipidemia, Hypertension, Myocardial Infarction (ME), Musculoskeletal Disorder, Neurologic Disorder, Osteoarthritis (OA), Pneumonia, Respiratory Disorder, Skin Disorder, Thyroid Disorder, Vascular Disorder Additional Past Medical History / Comment(s): Pt recently admitted to [facility] on 09/15/19 with acute on chronic FI bleed with known gastric ulcer and acute blood loss anemia, one gallstone. Other hx: 11/2012 ME with cardiac arrest/vtach, AICD d/t cardiomyopathy/ Vtach, chronic respiratory failure-uses home O2 prn 2L/NC, tracheobronchitis, tricuspid regurgitation, multiple sclerosis, DVT bilateral legs with GFF, neuropathy bilateral legs/feet, chronic back pain, DDD, migraines, bilateral carpal tunnel syndrome, past L/R rib fractures, past L hip fracture with surgery, PUD with ulcer rupture with surgery, peritonitis, pancreatitis, IBS/ ulcerative colitis, chronic anemia, UTIs, urinary incont inence, endometriosis, hypothyroid, R cataract and L eye cataract forming again, PVD, L leg cellulitis, Last Myocardial Infarction Date:: 2012 History of Any Multi-Drug Resistant Organisms: ESBL Date of last positivie culture/infection: 02/18/2014 MDRO Source:: Blood and Urine E. coli ESBL Past Surgical History: AICD, Appendectomy, Heart Catheterization, Heart Catheterization With Stent, Orthopedic Surgery, Pacemaker Additional Past Surgical History / Comment(s): Cardioversion, green field filter, laparotomy for ruptured gastric ulcer, R foot fracture with surgery, L hip fracture with surgery-has plate and screw, EGD, colonoscopies with benign polypectomy. Past Anesthesia/Blood Transfusion Reactions: No Reported Reaction Additional Past Anesthesia/Blood Transfusion Reaction / Comment(s): Pt has received blood in past without reaction. Date of Last Stent Placement:: 11/2012 Type of Cardiac Device: Permanent Pacemaker, AICD Device Placement Date:: 2012 Past Psychological History: Anxiety, Bipolar, Depression, Panic Disorder Additional Psychological History / Comment(s): Pt denies legal guardianship- rfp writer contacted probate court and they do not had LG on file. Pt resides alone at [facility]. She states she is never alone, a friend is always with her. She uses a walker or a wheelchair. She has help coming in for cooking, cleaning and bathing. Smoking Status: Former smoker Past Alcohol Use History: None Reported Additional Past Alcohol Use History / Comment(s): Pt started smoking about 1968 and quit in 2012. She abused alcohol in the past but has not drank in 20 yrs. Past Drug Use History: Marijuana Additional Drug Use History / Comment(s): Used marijuana in the past. - Past Family History Mother Family Medical History: Musculoskeletal Disorder Additional Family Medical History / Comment(s): MS Sister(s) Family Medical History: Myocardial Infarction (ME) Additional Family Medical History / Comment(s): SISTER ALSO HAS MS Brother(s) Family Medical History: Musculoskeletal Disorder, Neurologic Disorder Additional Family Medical History / Comment(s): MS Father Additional Family Medical History / Comment(s): ETOH abuse, back surgery Medications and Allergies Home Medications Medication Instructions Recorded Confirmed Type Folic Acid 1 mg PO DAILY 04/08/14 09/20/19 History Thiamine [Vitamin B-1] 100 mg PO DAILY 04/13/15 09/20/19 History Cholecalciferol (Vitamin D3) 2,000 unit PO DAILY 09/27/18 09/20/19 History [Vitamin D3] Ferrous Sulfate [Iron (65 MG 325 mg PO BID 09/27/18 09/20/19 History Elemental)] Levothyroxine Sodium [Synthroid] 100 mcg PO DAILY 09/27/18 09/20/19 History Atorvastatin [Lipitor] 40 mg PO DAILY #30 tab 09/28/18 09/20/19 Rx Isosorbide Mononitrate ER [Imdur] 30 mg PO DAILY 02/06/19 09/20/19 History Albuterol Sulfate [Proair Hfa] 2 puff INHALATION RT-QID PRN 03/16/19 09/20/19 History Omeprazole 40 mg PO BID 03/16/19 09/20/19 History Gabapentin [Neurontin] 300 mg PO TID #9 cap 04/02/19 09/20/19 Rx Baclofen [Lioresal] 20 mg PO TID PRN 08/07/19 09/20/19 History Potassium Chloride ER [K-Dur 20] 20 meq PO DAILY 08/07/19 09/20/19 History Cyanocobalamin [Vitamin B-12] 1,000 mcg PO DAILY #30 tab 08/11/19 09/20/19 Rx ALPRAZolam [Xanax] 0.25 mg PO TID PRN 09/06/19 09/20/19 History Albuterol Nebulized [Ventolin 2.5 mg INHALATION RT-Q4H PRN 09/06/19 09/20/19 History Nebulized] Amiodarone HCl [Pacerone] 100 mg PO DAILY 09/06/19 09/20/19 History Furosemide [Lasix] 20 mg PO DAILY 09/06/19 09/20/19 History Ipratropium-Albuterol Nebulize 3 ml INHALATION RT-Q4H 09/06/19 09/20/19 History [Duoneb 0.5 mg-3 mg/3 ml Soln] oxyCODONE-APAP 5-325MG [Percocet 1 tab PO Q8H PRN 09/06/19 09/20/19 History 5-325 mg] ARIPiprazole [Abilify] 10 mg PO DAILY 09/07/19 09/20/19 History Citalopram Hydrobromide [CeleXA] 20 mg PO DAILY 09/07/19 09/20/19 History Meclizine [Antivert] 25 mg PO QID PRN 09/07/19 09/20/19 History Fexofenadine HCl [Genet Allergy] 180 mg PO DAILY 09/15/19 09/20/19 History Allergies Allergy/AdvReac Type Severity Reaction Status Date / Time Penicillins Allergy Swelling Verified 09/20/19 12:15 Physical Exam Vitals: Vital Signs Temp Pulse Pulse Resp BP BP Pulse Ox 09/20/19 16:21 97.9 F 77 16 113/62 97 09/20/19 15:42 98.2 F 88 18 111/74 99 09/20/19 15:40 88 18 111/74 99 09/20/19 14:35 64 18 102/60 97 09/20/19 13:52 73 18 120/78 100 09/20/19 12:04 98.2 F 77 18 111/73 99 Intake and Output 09/20/19 09/20/19 09/20/19 06:59 14:59 22:59 Other: Voiding Method Diaper Incontinent Weight 58.06 kg 58.06 kg Results CBC & Chem 7: 09/20/19 13:35 09/20/19 13:35 Labs: Abnormal Lab Results - Last 24 Hours (Table) 09/20/19 09/20/19 09/20/19 Range/Units 13:33 13:35 13:35 RBC 2.38 L (3.80-5.40) m/uL Hgb 7.1 L (11.4-16.0) gm/dL Hct 23.4 L (34.0-46.0) % MCHC 30.3 L (31.0-37.0) g/dL RDW 15.7 H (11.5-15.5) % Lymphocytes # 0.7 L (1.0-4.8) k/uL Sodium 129 L (137-145) mmol/L Potassium 5.3 H (3.5-5.1) mmol/L Creatinine 0.44 L (0.52-1.04) mg/dL Calcium 7.9 L (8.4-10.2) mg/dL AST 50 H (14-36) U/L Alkaline Phosphatase 29 L (38-126) U/L Total Protein 4.8 L (6.3-8.2) g/dL Albumin 2.3 L (3.5-5.0) g/dL Stool Occult Blood Positive H (Negative) Thrombosis Risk Factor Assmnt - Choose All That Apply Any of the Below Risk Factors Present?: Yes Each Factor Represents 1 point: Abnormal pulmonary function (COPD), Serious lung disease incl. pneumonia (< 1month) Other Risk Factors: Yes Each Risk Factor Represents 2 Points: Age 61-74 years Each Risk Factor Represents 3 Points: History of DVT/PE Other congenital or acquired thrombophilia - If yes, enter type in comment: No Thrombosis Risk Factor Assessment Total Risk Factor Score: 7 Thrombosis Risk Factor Assessment Level: High Risk
[2019-09-20] MEDS: IPRATROPIUM-ALBUTEROL 3 ML NEB INHALATION SCH (19:44)
[2019-09-20 20:07] LABS: HCT 23.1 % (34.0-46.0); Hypochromasia Marked; MCH 30.4 pg (25.0-35.0); MCHC 30.2 g/dL (31.0-37.0); MCV 100.4 fL (80.0-100.0); Macrocytosis Slight; Mean Platelet Volume 9.4; Platelet Count 206 k/uL (150-450); Poikilocytosis Slight; RDW 15.8 % (11.5-15.5); WBC 5.4 k/uL (3.8-10.6)
[2019-09-20] MEDS: SODIUM CHLORIDE 0.9% 1,000 ML IV SCH (21:16)
[2019-09-20] MEDS: GABAPENTIN 300 MG CAP PO SCH (21:16)
[2019-09-20] MEDS: PANTOPRAZOLE 40 MG/10 ML VIAL IVP SCH (21:16)
[2019-09-20 21:17] LABS: Eosinophils # (M) 0.05 k/uL (0-0.7); Lymphocytes # (M) 0.65 k/uL (1.0-4.8); Monocytes # (M) 0.11 k/uL (0-1.0); Neutrophils # (M) 4.59 k/uL (1.3-7.7); Neutrophils % (M) 85 %; Nucleated Red Blood Cells 0 /100 WBC (0-0); Total Cells Counted 100
[2019-09-21] MEDS: BACLOFEN 10 MG TAB PO PRN (01:04)
[2019-09-21] MEDS: IPRATROPIUM-ALBUTEROL 3 ML NEB INHALATION SCH ×6 (02:26→21:26)
[2019-09-21] MEDS: MORPHINE SULFATE 4 MG/ML SYRINGE IV PRN ×2 (03:25→08:48)
[2019-09-21] MEDS: LEVOTHYROXINE 100 MCG TAB PO SCH (04:47)
[2019-09-21] MEDS: oxyCODONE-APAP 5-325MG 1 EACH TAB PO PRN ×3 (04:47→20:42)
[2019-09-21 08:22] LABS: ALT 7 U/L (4-34); AST 23 U/L (14-36); African American GFR (CKD) >90 (>60 ml/min/1.73 sqM); Albumin 2.1 g/dL (3.5-5.0); Alkaline Phosphatase 32 U/L (38-126); Anion Gap 3 mmol/L; Blood Urea Nitrogen 13 mg/dL (7-17); Calcium 7.8 mg/dL (8.4-10.2); Carbon Dioxide 26 mmol/L (22-30); Chloride 103 mmol/L (98-107); Glucose 66 mg/dL (74-99); Non-African American GFR(CKD) >90 (>60 ml/min/1.73 sqM); Potassium 4.2 mmol/L (3.5-5.1); Sodium 132 mmol/L (137-145); Total Bilirubin 0.4 mg/dL (0.2-1.3); Total Protein 4.2 g/dL (6.3-8.2)
[2019-09-21 08:58] VITALS: BMI 23.3
[2019-09-21] MEDS ORDERED: POTASSIUM CHLORIDE ER 20 MEQ TAB.ER PO SCH (09:00)
[2019-09-21] MEDS ORDERED: PROPOFOL 10 MG/ML 20 ML VIAL IV ONE (09:17)
[2019-09-21] MEDS ORDERED: IV FLUID CONTINUATION 200 ML IV ONE (09:21)
[2019-09-21 09:42] LABS: Anisocytosis Slight; Basophils % (A) 0 %; Eosinophils # (A) 0.6 k/uL (0-0.7); Eosinophils % (A) 7 %; HCT 26.9 % (34.0-46.0); Hypochromasia Marked; Lymphocytes # (A) 1.6 k/uL (1.0-4.8); Lymphocytes % (A) 20 %; MCHC 32.2 g/dL (31.0-37.0); MCV 96.1 fL (80.0-100.0); Macrocytosis Slight; Mean Platelet Volume 9.4; Monocytes # (A) 0.5 k/uL (0-1.0); Monocytes % (A) 7 %; Neutrophils # (A) 5.3 k/uL (1.3-7.7); Neutrophils % (A) 65 %; Platelet Count 220 k/uL (150-450); Poikilocytosis Moderate; RBC 2.79 m/uL (3.80-5.40); RDW 16.1 % (11.5-15.5); WBC 8.1 k/uL (3.8-10.6)
[2019-09-21 09:45] LABS: HGB 8.7 gm/dL (11.4-16.0)
--- NOTE | 2019-09-21 09:55 | P.PCN ---
Date of Procedure: 09/21/19 Procedure(s) Performed: BRIEF HISTORY: Patient is a 64-year-old, pleasant, white female admitted hospital with intermittent black tarry stools and recurrent anemia requiring blood transfusion. 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 PROCEDURE PERFORMED: Esophagogastroduodenoscopy with biopsy and Endo Clip placement PREOPERATIVE DIAGNOSIS: Anemia and black tarry stools. IV sedation per anesthesia. PROCEDURE: After informed consent was obtained, the patient was brought into the endoscopy unit. IV sedation was administered by Anesthesia under continuous monitoring. Initially the Olympus GIF-140 video endoscope was inserted into the mouth. Esophagus intubated without any difficulty. It was gradually advanced into the stomach and duodenum and carefully examined. The bulb and the second part of the duodenum appeared normal. There was some fresh blood noted in the second part of the duodenum. Irrigation was performed. No obvious source of bleeding was identified. The scope at this time was withdrawn to the stomach, adequately insufflated with air, and upon careful examination, mucosa of the antrum, body, appeared normal. in the proximal body of the stomach just distal to the cardia there was a 3-4 cm of it was gradually identified. There were 2 spots and small erosions on the surface with active oozing noted and this was stopped by placing Endo Clip. Multiple biopsies were done from the mass. The scope was then withdrawn into the esophagus. The GE junction was located at 39 cm from the incisors. The esophagus appeared normal. There were no erosions or ulcerations seen and the patient tolerated the procedure well. IMPRESSION: 3-4 cm submucosal mass in the proximal stomach close to the cardia of the stomach with a superficial erosion that was oozing status post Endo Clip shaka cement with good hemostasis. Status post multiple biopsies done from the last RECOMMENDATIONS: The findings of this examination were discussed with the patient . At this time she'll be started on a clear liquid diet and diet will be advanced as tolerated. Monitor CBC on a daily basis. Await biopsy results.
[2019-09-21 10:40] LABS: Poikilocytosis (M) Present; Toxic Granulation Present
[2019-09-21] MEDS: ARIPiprazole 10 MG TAB PO SCH (10:44)
[2019-09-21] MEDS: CITALOPRAM HYDROBROMIDE 20 MG TAB PO SCH (10:44)
[2019-09-21] MEDS: CYANOCOBALAMIN 500 MCG TAB PO SCH (10:44)
[2019-09-21] MEDS: GABAPENTIN 300 MG CAP PO SCH ×3 (10:44→21:21)
[2019-09-21] MEDS: ISOSORBIDE MONONITRATE ER 30 MG TAB.ER.24H PO SCH (10:44)
[2019-09-21] MEDS: THIAMINE 100 MG TAB PO SCH (10:45)
[2019-09-21] MEDS: AMIODARONE 100 MG TAB PO SCH (10:45)
[2019-09-21] MEDS: PANTOPRAZOLE 40 MG/10 ML VIAL IVP SCH ×2 (10:45→20:43)
[2019-09-21] MEDS: LORATADINE 10 MG TAB PO SCH (10:45)
[2019-09-21] MEDS: FOLIC ACID 1 MG TAB PO SCH (10:45)
[2019-09-21] MEDS: ATORVASTATIN 40 MG TAB PO SCH (10:45)
[2019-09-21] MEDS: SODIUM CHLORIDE 0.9% 1,000 ML IV SCH (10:57)
--- NOTE | 2019-09-21 12:24 | CONS ---
CONSULTATION DATE OF CONSULTATION: September 21, 2019. REASON FOR CONSULTATION: Anemia and black tarry stools. HISTORY OF PRESENT ILLNESS: The patient is a 63-year-old pleasant white female with multiple recent hospitalizations for anemia and black tarry stools and refusing upper endoscopy in the past. She came to the emergency room yesterday complaining of black tarry stools. She recently had DVT and PE and required a Colton filter placement. On no anticoagulation currently. She was just discharged home about a week ago for the same reason. This time her hemoglobin was 7.2, and she wanted to have an endoscopy done and hence admitted to the hospital for further evaluation. She denies any abdominal pain. No nausea, vomiting. Has been having some shortness of breath. PAST MEDICAL HISTORY: Significant for COPD, fibromyalgia, hypertension, hyperlipidemia, degenerative joint disease, EGD in February of 2019 as well as at [facility] showed gastric stromal tumor but records not available. MEDICATIONS: At home include Prilosec, Antivert, Synthroid, Imdur, DuoNeb, Neurontin, Lasix, Celexa, Lipitor, Pacerone, Abilify, Xanax, ProAir. ALLERGIES: PENICILLIN. SOCIAL HISTORY: History of smoking. No alcohol use. FAMILY HISTORY: Unremarkable. REVIEW OF SYSTEMS: CARDIOPULMONARY: Shortness of breath. : No dysuria or hematuria. MUSCULOSKELETAL unremarkable. SKIN unremarkable. ENDOCRINE unremarkable. PSYCHIATRIC unremarkable. NEUROLOGY unremarkable. ENT/VISION: Unremarkable. CONSTITUTIONAL: No recent weight loss. No fever, chills or night sweats. PHYSICAL EXAMINATION: She appears comfortable. Blood pressure 97/60, pulse 71, temperature 98. HEENT examination unremarkable. Conjunctivae pink. Sclerae anicteric. Oral cavity no lesions. NECK no JVD or lymph node enlargement. CHEST: Clear to auscultation. HEART: Regular rate and rhythm. ABDOMEN: Soft, bowel sounds are positive. No organomegaly. EXTREMITIES: No pedal edema. SKIN no rashes. NEURO: He is awake, alert, oriented x3. LABS: WBC 5.1, hemoglobin 7.1, platelets normal. Basic metabolic panel, BUN normal, BUN 13, creatinine 0.44, sodium 124, potassium 5.3. AST, ALT 50 and 9 respectively. Stool occult blood positive. IMPRESSION: 1. Recurrent anemia with intermittent black tarry stools for the last 6 months duration, multiple hospitalizations requiring blood transfusions. Last EGD at [facility] in February of 2018 showed gastric stromal tumor and was supposed to be seen by Oncology at that time. Now she has intermittent black tarry stools. Rule out recurrent peptic ulcer disease versus gastric stromal tumor. 2. Exacerbation of chronic obstructive pulmonary disease. RECOMMENDATIONS: Will proceed with EGD today. The patient understands risks, benefits, and complications of the procedure and she is agreeable to it. In the meantime, continue with Protonix 40 mg daily. Monitor CBC on a daily basis and we will follow with you. Thank you for this consultation. MMODL / IJN: [id number] /
--- NOTE | 2019-09-21 18:32 | P.PN ---
Progress Note - Text Progress Note Date: 09/21/19 history of presenting complaint: This is a 63-year-old patient who follows with visiting physicians Dr. Vera.. Normally uses a wheelchair or a walker to get about. Chronic stable medical conditions include, coronary artery disease, COPD in an ex-smoker, chronic fibromyalgia, GERD, hyperlipidemia, essential hypertension, osteoarthritis, hypothyroid, chronic multiple sclerosis, peripheral neuropathy lower extremity, chronic urinary incontinence. Patient also was worked up at [facility] for a gastric greater curvature mass which eventually showed up to be normal smooth muscle cells. Also's chronic intermittent GI bleed from a gastric ulcer. Patient admitted to the hospital on August 06 with a diagnosis of bilateral lower extremity DVT. Could not tolerate IV heparin because of intermittent dark stools for some time. Did require blood transfusion. [place] filter was placed. Patient declined any endoscopy. Patient admitted from August 2018 through September 07. The hemoglobin of 6. 2 units of blood were given. Patient again declined endoscopy. Readmitted from September 14 through September 16. With dark stools. Received another unit of blood. Declined endoscopy. Discharge. again presents with dark stools feeling weak tired rundown. Hemoglobin was 7.6 on September 16. Today to 7.1. Now agreeable for a endoscopy. today-underwent EGD. Found to have a known gastric mass. Slowly closing. clip was placed. Biopsies were done. Review of systems: Was done for constitutional, cardiovascular, GI, pulmonary. relevant finding as above Active Medications Acetaminophen (Tylenol Tab) 650 mg PO Q6HR PRN PRN Reason: Mild Pain or Fever > 100.5 Al Hydroxide/Mg Hydroxide (Maalox) 15 ml PO Q6HR PRN PRN Reason: Indigestion Albuterol Sulfate (Ventolin Nebulized) 2.5 mg INHALATION RT-Q4H PRN PRN Reason: Shortness Of Breath Albuterol/Ipratropium (Duoneb 0.5 Mg-3 Mg/3 Ml Soln) 3 ml INHALATION RT-Q4H [facility] Last Admin: 09/21/19 15:16 Dose: 3 ml Documented by: Alprazolam (Xanax) 0.25 mg PO TID PRN PRN Reason: Anxiety Amiodarone HCl (Cordarone) 100 mg PO DAILY [facility] Last Admin: 09/21/19 10:45 Dose: 100 mg Documented by: Aripiprazole (Abilify) 10 mg PO DAILY [facility] Last Admin: 09/21/19 10:44 Dose: 10 mg Documented by: Atorvastatin Calcium (Lipitor) 40 mg PO DAILY [facility] Last Admin: 09/21/19 10:45 Dose: 40 mg Documented by: Baclofen (Lioresal) 20 mg PO TID PRN PRN Reason: Pain Last Admin: 09/21/19 01:04 Dose: 20 mg Documented by: Calcium Carbonate/Glycine (Tums) 1,000 mg PO Q4HR PRN PRN Reason: Dyspepsia Citalopram Hydrobromide (Celexa) 20 mg PO DAILY [facility] Last Admin: 09/21/19 10:44 Dose: 20 mg Documented by: Cyanocobalamin (Vitamin B-12) 1,000 mcg PO DAILY [facility] Last Admin: 09/21/19 10:44 Dose: 1,000 mcg Documented by: Folic Acid (Folic Acid) 1 mg PO DAILY [facility] Last Admin: 09/21/19 10:45 Dose: 1 mg Documented by: Gabapentin (Neurontin) 300 mg PO TID [facility] Last Admin: 09/21/19 17:07 Dose: 300 mg Documented by: Sodium Chloride (Saline 0.9%) 1,000 mls @ 50 mls/hr IV .Q20H [facility] Last Admin: 09/21/19 10:57 Dose: 50 mls/hr Documented by: Isosorbide Mononitrate (Imdur) 30 mg PO DAILY [facility] Last Admin: 09/21/19 10:44 Dose: Not Given Documented by: Levothyroxine Sodium (Synthroid) 100 mcg PO DAILY@0630 [facility] Last Admin: 09/21/19 04:47 Dose: 100 mcg Documented by: Loratadine (Claritin) 10 mg PO DAILY [facility] Last Admin: 09/21/19 10:45 Dose: 10 mg Documented by: Melatonin (Melatonin) 3 mg PO HS PRN PRN Reason: Insomnia Morphine Sulfate (Morphine Sulfate (Inj)) 4 mg IV Q4HR PRN PRN Reason: Severe Pain Last Admin: 09/21/19 08:48 Dose: 4 mg Documented by: Naloxone HCl (Narcan) 0.2 mg IV Q2M PRN PRN Reason: Opioid Reversal Ondansetron HCl (Zofran) 4 mg IVP Q8HR PRN PRN Reason: Nausea And Vomiting Oxycodone/Acetaminophen (Percocet 5-325) 1 each PO Q8H PRN PRN Reason: Pain Last Admin: 09/21/19 13:02 Dose: 1 each Documented by: Pantoprazole Sodium (Protonix) 40 mg IVP BID [facility] Last Admin: 09/21/19 10:45 Dose: 40 mg Documented by: Thiamine HCl (Vitamin B-1) 100 mg PO DAILY [facility] Last Admin: 09/21/19 10:45 Dose: 100 mg Documented by: Physical examination: VITAL SIGNS:98.1, 70, 17, 103/69, 100% room air GENERAL: Laying in bed, awake EYES: Pupils equal. Conjunctiva pale HEENT: External appearance of nose and ears normal, oral cavity grossly normal. Slight puffiness of the right side cheek, with no tenderness-patient has no skin NECK: JVD not raised; masses not palpable. HEART: First and second heart sounds are normal; mild edema. LUNGS: Respiratory rate increased, decreased breath sounds. ABDOMEN: Soft, no tenderness, no guarding or rigidity, liver spleen not palpable, no masses palpable. PSYCH: Alert and oriented x3; mood and affect normal. INVESTIGATIONS, reviewed in the clinical context: hemoglobin 8.7 Previous testing: White count 5.1 hemoglobin 7.1 potassium 4.3 creatinine 0.44 Hemoglobin 7.6 on September 16 Assessment: -Acute on chronic GI bleed -endoscopy done today shows the gastric mass that is known with lslow oozing. Gastric clip was placed -Acute blood loss anemia from GI bleed,-symptomatic will be given one unit of blood -Chronic lower extremity DVT - [place] filter -Gastric ulcer disease -Vzsxq-rwcamzihj-vbjrzyu mass, workup done at [facility].-biopsy showing smooth muscle mass, -Solitary gallstone, asymptomatic -Coronary artery disease -COPD in an ex-smoker -Chronic fibromyalgia -GERD -Hyperlipidemia -Essential hypertension -Primary osteoarthritis -Hypothyroid -Chronic multiple sclerosis -Peripheral neuropathy both the lower extremity -Chronic urinary incontinence -Chronic gait dysfunction uses a walker/wheelchair -[place] filter placed on August 09 plan: -discussed with Dr. Eliza Solis from GI. The only option would be surgery but patient is not inclined. I later had a long discussion with the patient. She is not agreed to proceed for surgery. She does want to go home and then come back for the same. Repeat hemoglobin in the morning. Total time spent today was about 40 minutes with over 25 minutes of discussion
[2019-09-21 20:31] LABS: Basophils % (A) 0 %; Eosinophils # (A) 0.6 k/uL (0-0.7); Eosinophils % (A) 6 %; HCT 27.7 % (34.0-46.0); HGB 8.7 gm/dL (11.4-16.0); Hypochromasia Marked; Lymphocytes # (A) 1.8 k/uL (1.0-4.8); Lymphocytes % (A) 18 %; MCH 31.6 pg (25.0-35.0); MCHC 31.4 g/dL (31.0-37.0); MCV 100.6 fL (80.0-100.0); Macrocytosis Slight; Monocytes # (A) 0.7 k/uL (0-1.0); Monocytes % (A) 7 %; Neutrophils # (A) 6.4 k/uL (1.3-7.7); Neutrophils % (A) 66 %; Platelet Count 182 k/uL (150-450); Poikilocytosis Moderate; RBC 2.76 m/uL (3.80-5.40); RDW 15.7 % (11.5-15.5); WBC 9.7 k/uL (3.8-10.6)
[2019-09-21] MEDS ORDERED: PANTOPRAZOLE 40 MG TABLET PO SCH (21:00)
[2019-09-22] MEDS: IPRATROPIUM-ALBUTEROL 3 ML NEB INHALATION SCH ×6 (04:12→23:20)
[2019-09-22] MEDS: SODIUM CHLORIDE 0.9% 1,000 ML IV SCH (05:37)
[2019-09-22] MEDS: THIAMINE 100 MG TAB PO SCH (09:47)
[2019-09-22] MEDS: LORATADINE 10 MG TAB PO SCH (09:47)
[2019-09-22] MEDS: LEVOTHYROXINE 100 MCG TAB PO SCH (09:47)
[2019-09-22] MEDS: FOLIC ACID 1 MG TAB PO SCH (09:47)
[2019-09-22] MEDS: ARIPiprazole 10 MG TAB PO SCH (09:47)
[2019-09-22] MEDS: GABAPENTIN 300 MG CAP PO SCH ×3 (09:48→20:54)
[2019-09-22] MEDS: ATORVASTATIN 40 MG TAB PO SCH (09:48)
[2019-09-22] MEDS: CITALOPRAM HYDROBROMIDE 20 MG TAB PO SCH (09:48)
[2019-09-22] MEDS: CYANOCOBALAMIN 500 MCG TAB PO SCH (09:48)
[2019-09-22] MEDS: oxyCODONE-APAP 5-325MG 1 EACH TAB PO PRN ×2 (09:48→18:16)
[2019-09-22] MEDS: AMIODARONE 100 MG TAB PO SCH (09:48)
[2019-09-22] MEDS: PANTOPRAZOLE 40 MG/10 ML VIAL IVP SCH ×2 (09:49→20:54)
[2019-09-22] MEDS: ISOSORBIDE MONONITRATE ER 30 MG TAB.ER.24H PO SCH (10:31)
[2019-09-22 11:50] LABS: HGB 7.5 gm/dL (11.4-16.0); Hypochromasia Marked; MCH 30.1 pg (25.0-35.0); MCV 100.5 fL (80.0-100.0); Macrocytosis Slight; Platelet Count 133 k/uL (150-450); Poikilocytosis Moderate; RBC 2.49 m/uL (3.80-5.40); RDW 15.4 % (11.5-15.5); WBC 5.6 k/uL (3.8-10.6)
--- NOTE | 2019-09-22 17:00 | PN ---
PROGRESS NOTE DATE OF SERVICE: September 22, 2019 Patient is a 64-year-old pleasant white female admitted to hospital with anemia and black tarry stools. She underwent an upper endoscopy yesterday that showed a 3-4 cm mass in the proximal body of the stomach just distal to the cardia with a superficial erosion with active oozing and hence she underwent an Endoclip placement. Biopsies were done from the mass, results of which are pending. She denies any symptoms. She is on a clear liquid diet, tolerating well. PHYSICAL EXAMINATION: Appears comfortable in no apparent distress. Vital signs stable. Blood pressure is 93/51, pulse is 75, temperature 97.5. HEENT examination unremarkable. Conjunctivae pink. Sclerae anicteric. Oral cavity no lesions. NECK no JVD or lymph node enlargement. CHEST: Clear to auscultation. HEART: Regular rate and rhythm. ABDOMEN: Soft, nontender, nondistended. Bowel sounds are positive. EXTREMITIES: No pedal edema. NEURO: She is alert and oriented x3. No focal deficits. LABS: WBC 5.6, hemoglobin 7.5, platelets 133. Rest of the labs are within normal limits. IMPRESSION: 1. Anemia/black tarry stools status post EGD yesterday that showed a 3-4 cm proximal gastric submucosal mass with oozing, status post Endoclip placement. Biopsies are still pending. 2. Chronic obstructive pulmonary disease. 3. Anemia, stable hemoglobin. RECOMMENDATIONS: 1. Await biopsy results. 2. Obtain surgical consultation for resection. 3. Monitor CBC closely. 4. Continue Protonix daily. 5. We will follow with you closely. Thank you for this consultation. MMODL / IJN: [id number] /
--- NOTE | 2019-09-22 18:26 | P.PN ---
Progress Note - Text Progress Note Date: 09/22/19 history of presenting complaint: This is a 63-year-old patient who follows with visiting physicians Dr. Vera.. Normally uses a wheelchair or a walker to get about. Chronic stable medical conditions include, coronary artery disease, COPD in an ex-smoker, chronic fibromyalgia, GERD, hyperlipidemia, essential hypertension, osteoarthritis, hypothyroid, chronic multiple sclerosis, peripheral neuropathy lower extremity, chronic urinary incontinence. Patient also was worked up at [facility] for a gastric greater curvature mass which eventually showed up to be normal smooth muscle cells. Also's chronic intermittent GI bleed from a gastric ulcer. Patient admitted to the hospital on August 06 with a diagnosis of bilateral lower extremity DVT. Could not tolerate IV heparin because of intermittent dark stools for some time. Did require blood transfusion. Bethesda filter was placed. Patient declined any endoscopy. Patient admitted from August 2018 through September 07. The hemoglobin of 6. 2 units of blood were given. Patient again declined endoscopy. Readmitted from September 14 through September 16. With dark stools. Received another unit of blood. Declined endoscopy. Discharge. again presents with dark stools feeling weak tired rundown. Hemoglobin was 7.6 on September 16. Today to 7.1. Now agreeable for a endoscopy. EGD showed a gastric mass. Biopsies were done. Patient has agreed to proceed with surgery to remove the gastric mass.. today-hemoglobin dropped to 7.5. Unit of blood ordered. Had a lengthy talk with the patient. She is agreeable to have the surgery done here. Posterior, discussed with the come back. Also discussed Dr. Eliza Solis. Review of systems: Was done for constitutional, cardiovascular, GI, pulmonary. relevant finding as above Physical examination: VITAL SIGNS: Active Medications Acetaminophen (Tylenol Tab) 650 mg PO Q6HR PRN PRN Reason: Mild Pain or Fever > 100.5 Al Hydroxide/Mg Hydroxide (Maalox) 15 ml PO Q6HR PRN PRN Reason: Indigestion Albuterol Sulfate (Ventolin Nebulized) 2.5 mg INHALATION RT-Q4H PRN PRN Reason: Shortness Of Breath Albuterol/Ipratropium (Duoneb 0.5 Mg-3 Mg/3 Ml Soln) 3 ml INHALATION RT-Q4H SID Last Admin: 09/22/19 15:08 Dose: 3 ml Documented by: Alprazolam (Xanax) 0.25 mg PO TID PRN PRN Reason: Anxiety Amiodarone HCl (Cordarone) 100 mg PO DAILY [facility] Last Admin: 09/22/19 09:48 Dose: 100 mg Documented by: Aripiprazole (Abilify) 10 mg PO DAILY [facility] Last Admin: 09/22/19 09:47 Dose: 10 mg Documented by: Atorvastatin Calcium (Lipitor) 40 mg PO DAILY [facility] Last Admin: 09/22/19 09:48 Dose: 40 mg Documented by: Baclofen (Lioresal) 20 mg PO TID PRN PRN Reason: Pain Last Admin: 09/21/19 01:04 Dose: 20 mg Documented by: Calcium Carbonate/Glycine (Tums) 1,000 mg PO Q4HR PRN PRN Reason: Dyspepsia Citalopram Hydrobromide (Celexa) 20 mg PO DAILY [facility] Last Admin: 09/22/19 09:48 Dose: 20 mg Documented by: Cyanocobalamin (Vitamin B-12) 1,000 mcg PO DAILY [facility] Last Admin: 09/22/19 09:48 Dose: 1,000 mcg Documented by: Folic Acid (Folic Acid) 1 mg PO DAILY [facility] Last Admin: 09/22/19 09:47 Dose: 1 mg Documented by: Gabapentin (Neurontin) 300 mg PO TID [facility] Last Admin: 09/22/19 16:41 Dose: 300 mg Documented by: Sodium Chloride (Saline 0.9%) 1,000 mls @ 50 mls/hr IV .Q20H [facility] Last Admin: 09/22/19 05:37 Dose: 50 mls/hr Documented by: Isosorbide Mononitrate (Imdur) 30 mg PO DAILY [facility] Last Admin: 09/22/19 10:31 Dose: Not Given Documented by: Levothyroxine Sodium (Synthroid) 100 mcg PO DAILY@0630 [facility] Last Admin: 09/22/19 09:47 Dose: 100 mcg Documented by: Loratadine (Claritin) 10 mg PO DAILY [facility] Last Admin: 09/22/19 09:47 Dose: 10 mg Documented by: Melatonin (Melatonin) 3 mg PO HS PRN PRN Reason: Insomnia Naloxone HCl (Narcan) 0.2 mg IV Q2M PRN PRN Reason: Opioid Reversal Ondansetron HCl (Zofran) 4 mg IVP Q8HR PRN PRN Reason: Nausea And Vomiting Oxycodone/Acetaminophen (Percocet 5-325) 1 each PO Q8H PRN PRN Reason: Pain Last Admin: 09/22/19 18:16 Dose: 1 each Documented by: Pantoprazole Sodium (Protonix) 40 mg IVP BID [facility] Last Admin: 09/22/19 09:49 Dose: 40 mg Documented by: Thiamine HCl (Vitamin B-1) 100 mg PO DAILY [facility] Last Admin: 09/22/19 09:47 Dose: 100 mg Documented by: Physical examination: Vitals-98.2, 78, 17, 83/51, 100% room air GENERAL: Laying in bed, awake EYES: Pupils equal. Conjunctiva pale HEENT: External appearance of nose and ears normal, oral cavity grossly normal. Slight puffiness of the right side cheek, with no tenderness-patient has no skin NECK: JVD not raised; masses not palpable. HEART: First and second heart sounds are normal; mild edema. LUNGS: Respiratory rate increased, decreased breath sounds. ABDOMEN: Soft, no tenderness, no guarding or rigidity, liver spleen not palpable, no masses palpable. PSYCH: Alert and oriented x3; mood and affect normal. INVESTIGATIONS, reviewed in the clinical context: Hemoglobin 7.5 Previous testing: White count 5.1 hemoglobin 7.1 potassium 4.3 creatinine 0.44 Hemoglobin 7.6 on September 16 Assessment: -Acute on chronic GI bleed -endoscopy done today shows the gastric mass that is showing slow oozing. Gastric clip was placed -Acute blood loss anemia from GI bleed,-symptomatic, will get a second unit of blood today. -Chronic lower extremity DVT - Bethesda filter -Gastric ulcer disease -Nghwl-mkfbdawhu-sjmgbbi mass, workup done at [facility].-biopsy showing smooth muscle mass, -Solitary gallstone, asymptomatic -Coronary artery disease -COPD in an ex-smoker -Chronic fibromyalgia -GERD -Hyperlipidemia -Essential hypertension -Primary osteoarthritis -Hypothyroid -Chronic multiple sclerosis -Peripheral neuropathy both the lower extremity -Chronic urinary incontinence -Chronic gait dysfunction uses a walker/wheelchair -Bethesda filter placed on August 09 plan: -Secondary to blood has been ordered. Patient seen by Dr. Lees before. Biopsy results are pending. Labs the patient see oncology and Dr. Lees tomorrow before she can be discharged to come back for surgery. Also discussed with Dr. Herrera. Total time spent today was about 4045 minutes with over 25 minutes of discussion.
[2019-09-22] MEDS: BACLOFEN 10 MG TAB PO PRN (23:21)
[2019-09-23] MEDS: IPRATROPIUM-ALBUTEROL 3 ML NEB INHALATION SCH ×5 (03:43→19:08)
[2019-09-23] MEDS: SODIUM CHLORIDE 0.9% 1,000 ML IV SCH (04:15)
[2019-09-23] MEDS: LEVOTHYROXINE 100 MCG TAB PO SCH (05:28)
[2019-09-23] MEDS: oxyCODONE-APAP 5-325MG 1 EACH TAB PO PRN ×2 (05:30→21:11)
[2019-09-23 07:50] LABS: Basophils % (A) 0 %; Eosinophils # (A) 0.4 k/uL (0-0.7); Eosinophils % (A) 6 %; Hypochromasia Marked; Lymphocytes # (A) 1.1 k/uL (1.0-4.8); Lymphocytes % (A) 20 %; MCH 31.2 pg (25.0-35.0); MCV 97.6 fL (80.0-100.0); Macrocytosis Slight; Mean Platelet Volume 8.1; Monocytes # (A) 0.4 k/uL (0-1.0); Monocytes % (A) 7 %; Neutrophils # (A) 3.8 k/uL (1.3-7.7); Neutrophils % (A) 65 %; Platelet Count 126 k/uL (150-450); Poikilocytosis Moderate; RBC 2.56 m/uL (3.80-5.40); RDW 15.4 % (11.5-15.5); WBC 5.8 k/uL (3.8-10.6)
[2019-09-23 08:11] LABS: ALT 8 U/L (4-34); AST 19 U/L (14-36); African American GFR (CKD) >90 (>60 ml/min/1.73 sqM); Albumin 1.8 g/dL (3.5-5.0); Alkaline Phosphatase 32 U/L (38-126); Anion Gap 1 mmol/L; Blood Urea Nitrogen 9 mg/dL (7-17); Calcium 7.2 mg/dL (8.4-10.2); Carbon Dioxide 27 mmol/L (22-30); Chloride 105 mmol/L (98-107); Glucose 76 mg/dL (74-99); LDH 606 U/L (313-618); Magnesium 1.6 mg/dL (1.6-2.3); Non-African American GFR(CKD) >90 (>60 ml/min/1.73 sqM); Potassium 3.7 mmol/L (3.5-5.1); Sodium 133 mmol/L (137-145); Total Bilirubin 0.3 mg/dL (0.2-1.3); Total Protein 3.8 g/dL (6.3-8.2)
[2019-09-23 08:15] LABS: INR 1.2 (<1.2)
[2019-09-23 08:22] LABS: Reticulocyte % 5.9 % (0.5-2.0)
[2019-09-23 08:25] LABS: Partial Thromboplastin Time 21.7 sec (22.0-30.0)
--- NOTE | 2019-09-23 09:33 | P.PN ---
Subjective From Records This is a pleasant 78-year-old patient who follows with Dr. Hunter. Seen by me in the ER today. 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 Dionne Woodard. Patient was diagnosed with lung cancer and was treated with chemotherapy and radiation treatment by Dr. Dominique. Patient recently had herpes zoster. Recently the hospital from September 09 through September 11.Admitted with-possibly progression of cognitive impairment. MRI of the brain showed chronic changes. Patient underwent a [place] cognitive impairment test. Scored poorly. Patient has significant dementia. Was seen by neurology. Patient now presents to the ER accompanied by her son. Has been feeling weak. Forgetful. No fever no chills. Breathing is okay. Patient took a fall one day ago. Occasionally feels dizzy. No chest pain no palpitation. Patient's son would like to have placement done as has but does sister.. Admitted with falls and medical debility. On-call hospitalist covering for Dr. Bay Subjective 09/23/2019 Patient presents with anemia and tarry stool, found to have 3-4 cm gastric mass with superficial losing status post clipping by GI team. Biopsy is obtained and is pending. I discussed the case with hematology team and looks like patient had previously evaluated for similar problem of her stomach mass and at that time the biopsy was negative, however patient continues to have bleeding and blood pressure is always on the low-normal signed as per patient. Surgery team were consulted and is pending. Hemoglobin yesterday dropped from 8.7 down to 7.5, resume 20 units blood transfusion her yesterday and her hemoglobin went up only to 8.0. She is on iron pills. B12 and iron studies are pending. Patient herself does not feels dizziness, she is fully awake and oriented, no chest pain or dyspnea. No abdominal pain. She did not have bowel movement for the last 1 or 2 days. Patient was asking to be discharged home today however she agrees to stay in the hospital for now Discussed with staff Objective - Vital Signs Vital signs: Vital Signs Temp 98.6 F 09/23/19 05:38 Pulse 79 09/23/19 05:38 Resp 12 09/23/19 05:38 BP 99/60 09/23/19 05:38 Pulse Ox 98 09/23/19 05:38 Intake & Output 09/22/19 09/23/19 09/23/19 18:59 06:59 18:59 Intake Total 0 310 Balance 0 310 Intake: Blood Product 0 310 Rc As-1 Unit 0 310 [id number] Other: Voiding Method Diaper Diaper Incontinent Incontinent # Voids 4 2 - Exam GENERAL: The patient is alert and oriented x3, not in any acute distress. Well developed, well nourished. HEENT: Pupils are round and equally reacting to light. EOMI. No scleral icterus. No conjunctival pallor. Normocephalic, atraumatic. No pharyngeal erythema. No thyromegaly. CARDIOVASCULAR: S1 and S2 present. No murmurs, rubs, or gallops. PULMONARY: Chest is clear to auscultation, no wheezing or crackles. ABDOMEN: Soft, nontender, nondistended, normoactive bowel sounds. No palpable organomegaly. MUSCULOSKELETAL: No joint swelling or deformity. EXTREMITIES: No cyanosis, clubbing, or pedal edema. NEUROLOGICAL: Gross neurological examination did not reveal any focal deficits. SKIN: No rashes. no petechiae. Date: Wheelchair bound - Labs CBC & Chem 7: 09/23/19 07:21 09/23/19 07:21 Labs: Abnormal Lab Results - Last 24 Hours (Table) 09/20/19 09/22/19 09/23/19 Range/Units 13:35 11:25 07:21 RBC 2.49 L 2.56 L (3.80-5.40) m/uL Hgb 7.5 L 8.0 L (11.4-16.0) gm/dL Hct 25.0 L 25.0 L (34.0-46.0) % MCV 100.5 H (80.0-100.0) fL MCHC 30.0 L (31.0-37.0) g/dL Plt Count 133 L 126 L (150-450) k/uL Retic Count 5.9 H (0.5-2.0) % INR (<1.2) APTT (22.0-30.0) sec Sodium (137-145) mmol/L Creatinine (0.52-1.04) mg/dL Calcium (8.4-10.2) mg/dL Alkaline Phosphatase (38-126) U/L Total Protein (6.3-8.2) g/dL Albumin (3.5-5.0) g/dL Crossmatch See Detail 09/23/19 09/23/19 Range/Units 07:21 07:21 RBC (3.80-5.40) m/uL Hgb (11.4-16.0) gm/dL Hct (34.0-46.0) % MCV (80.0-100.0) fL MCHC (31.0-37.0) g/dL Plt Count (150-450) k/uL Retic Count (0.5-2.0) % INR 1.2 H (<1.2) APTT 21.7 L (22.0-30.0) sec Sodium 133 L (137-145) mmol/L Creatinine 0.49 L (0.52-1.04) mg/dL Calcium 7.2 L (8.4-10.2) mg/dL Alkaline Phosphatase 32 L (38-126) U/L Total Protein 3.8 L (6.3-8.2) g/dL Albumin 1.8 L (3.5-5.0) g/dL Crossmatch Assessment and Plan Assessment: -Acute on chronic GI bleed -endoscopy done today shows the gastric mass that is showing slow oozing. Gastric clip was placed -Acute blood loss anemia from GI bleed,-symptomatic, status post a second unit of blood -Chronic lower extremity DVT - [place] filter -Gastric ulcer disease -Wbavj-fijtsmunr-bnzcjkp mass, workup done at [facility].-biopsy showing smooth muscle mass -History of multiple sclerosis, wheelchair bound -Solitary gallstone, asymptomatic -Coronary artery disease -COPD in an ex-smoker -Chronic fibromyalgia -GERD -Hyperlipidemia -Essential hypertension -Primary osteoarthritis -Hypothyroid -Chronic multiple sclerosis -Peripheral neuropathy both the lower extremity -Chronic urinary incontinence -Chronic gait dysfunction uses a walker/wheelchair -[place] filter placed on August 09 Plan: -This is a pleasant 64 years old female who presents with bleeding gastric mass. Status post clipping by GI team . Hematology and surgery team were consulted for further evaluation. Continue with iron. Continue with Protonix and gentle hydration Labs and medication were reviewed.. Continue same treatment. Continue with symptomatic treatment. Resume home medication. Monitor lytes and vitals. DVT and GI prophylaxis. Further recommendations of the clinical course of the patient DVT prophylaxis: No heparin for GI bleed GI Prophylaxis: Ppi
[2019-09-23] MEDS: PANTOPRAZOLE 40 MG/10 ML VIAL IVP SCH ×2 (09:47→21:11)
[2019-09-23] MEDS: CYANOCOBALAMIN 500 MCG TAB PO SCH (09:47)
[2019-09-23] MEDS: FOLIC ACID 1 MG TAB PO SCH (09:47)
[2019-09-23] MEDS: CITALOPRAM HYDROBROMIDE 20 MG TAB PO SCH (09:47)
[2019-09-23] MEDS: LORATADINE 10 MG TAB PO SCH (09:47)
[2019-09-23] MEDS: ATORVASTATIN 40 MG TAB PO SCH (09:47)
[2019-09-23] MEDS: THIAMINE 100 MG TAB PO SCH (09:47)
[2019-09-23] MEDS: GABAPENTIN 300 MG CAP PO SCH ×3 (09:53→21:11)
[2019-09-23] MEDS: AMIODARONE 100 MG TAB PO SCH (09:56)
[2019-09-23] MEDS: ARIPiprazole 10 MG TAB PO SCH (09:56)
[2019-09-23] MEDS: FERROUS SULFATE 325 MG TAB PO SCH ×2 (09:56→17:51)
[2019-09-23] MEDS: ISOSORBIDE MONONITRATE ER 30 MG TAB.ER.24H PO SCH (09:58)
--- NOTE | 2019-09-23 12:51 | P.GSCN ---
History of Present Illness Consult date: 09/23/19 History of present illness: Patient seen and evaluated. Full report to follow. Consultation obtained secondary to known pre-existing gastric tumor. Per review of the patient's chart, patient has workup at [facility] including upper endoscopy and endoscopic ultrasound to categorize and characterize her tumor. Patient has multiple admissions in the hospital secondary to anemia. At this time, patient being seen by oncology. Upper endoscopy recently performed by GI with path pending. Per request of attending physician, general surgery is consulted. ABDOMEN: Soft, nontender, nondistended STUDIES: CT of the abdomen and pelvis and reviewed demonstrating markedly decreased size of large posterior gastric tumor from 1 year ago to approximately 5 cm. PATH: Pending. PLAN: 1. At this time, will need tissue pathology to characterize this tumor. 2. Additionally, patient has pre-existing relationship and workup at [facility] which was previously recommended at [facility]. 3. Recommend follow-up at tertiary care center for gastric tumor resection pending pathology Past Medical History Past Medical History: Coronary Artery Disease (CAD), Chest Pain / Angina, Heart Failure, COPD, Deep Vein Thrombosis (DVT), Eye Disorder, Fibromyalgia, GERD/Reflux, GI Bleed, Hyperlipidemia, Hypertension, Myocardial Infarction ([place]), Musculoskeletal Disorder, Neurologic Disorder, Osteoarthritis (OA), Pneumonia, Respiratory Disorder, Skin Disorder, Thyroid Disorder, Vascular Disorder Additional Past Medical History / Comment(s): Pt recently admitted to [facility] on 09/15/19 with acute on chronic FI bleed with known gastric ulcer and acute blood loss anemia, one gallstone. Other hx: 11/2012 [place] with cardiac arrest/vtach, AICD d/t cardiomyopathy/ Vtach, chronic respiratory failure-uses home O2 prn 2L/NC, tracheobronchitis, tricuspid regurgitation, multiple sclerosis, DVT bilateral legs with GFF, neuropathy bilateral legs/feet, chronic back pain, DDD, migraines, bilateral carpal tunnel syndrome, past L/R rib fractures, past L hip fracture with surgery, PUD with ulcer rupture with surgery, peritonitis, pancreatitis, IBS/ ulcerative colitis, chronic anemia, UTIs, urinary inco ntinence, endometriosis, hypothyroid, R cataract and L eye cataract forming again, PVD, L leg cellulitis, Last Myocardial Infarction Date:: 2012 History of Any Multi-Drug Resistant Organisms: ESBL Year Discovered:: 02/18/2014 MDRO Source:: Blood and Urine E. coli ESBL Past Surgical History: AICD, Appendectomy, Heart Catheterization, Heart Catheterization With Stent, Orthopedic Surgery, Pacemaker Additional Past Surgical History / Comment(s): Cardioversion, green field filter, laparotomy for ruptured gastric ulcer, R foot fracture with surgery, L hip fracture with surgery-has plate and screw, EGD, colonoscopies with benign polypectomy. Past Anesthesia/Blood Transfusion Reactions: No Reported Reaction Additional Past Anesthesia/Blood Transfusion Reaction / Comm: Pt has received blood in past without reaction. Date of Last Stent Placement:: 11/2012 Type of Cardiac Device: Permanent Pacemaker, AICD Device Placement Date:: 2012 Past Psychological History: Anxiety, Bipolar, Depression, Panic Disorder Additional Psychological History / Comment(s): Pt denies legal guardianship- commercial insurance underwriter contacted probate court and they do not had LG on file. Pt resides alone at [facility]. She states she is never alone, a friend is always with her. She uses a walker or a wheelchair. She has help coming in for cooking, cleaning and bathing. Smoking Status: Former smoker Past Alcohol Use History: None Reported Additional Past Alcohol Use History / Comment(s): Pt started smoking about 1968 and quit in 2012. She abused alcohol in the past but has not drank in 20 yrs. Past Drug Use History: Marijuana Additional Drug Use History / Comment(s): Used marijuana in the past. - Past Family History Mother Family Medical History: Musculoskeletal Disorder Additional Family Medical History / Comment(s): MS Sister(s) Family Medical History: Myocardial Infarction ([place]) Additional Family Medical History / Comment(s): SISTER ALSO HAS MS Brother(s) Family Medical History: Musculoskeletal Disorder, Neurologic Disorder Additional Family Medical History / Comment(s): MS Father Additional Family Medical History / Comment(s): ETOH abuse, back surgery Medications and Allergies Home Medications Medication Instructions Recorded Confirmed Type Folic Acid 1 mg PO DAILY 04/08/14 09/20/19 History Thiamine [Vitamin B-1] 100 mg PO DAILY 04/13/15 09/20/19 History Cholecalciferol (Vitamin D3) 2,000 unit PO DAILY 09/27/18 09/20/19 History [Vitamin D3] Ferrous Sulfate [Iron (65 MG 325 mg PO BID 09/27/18 09/20/19 History Elemental)] Levothyroxine Sodium [Synthroid] 100 mcg PO DAILY 09/27/18 09/20/19 History Atorvastatin [Lipitor] 40 mg PO DAILY #30 tab 09/28/18 09/20/19 Rx Isosorbide Mononitrate ER [Imdur] 30 mg PO DAILY 02/06/19 09/20/19 History Albuterol Sulfate [Proair Hfa] 2 puff INHALATION RT-QID PRN 03/16/19 09/20/19 History Omeprazole 40 mg PO BID 03/16/19 09/20/19 History Gabapentin [Neurontin] 300 mg PO TID #9 cap 04/02/19 09/20/19 Rx Baclofen [Lioresal] 20 mg PO TID PRN 08/07/19 09/20/19 History Cyanocobalamin [Vitamin B-12] 1,000 mcg PO DAILY #30 tab 08/11/19 09/20/19 Rx ALPRAZolam [Xanax] 0.25 mg PO TID PRN 09/06/19 09/20/19 History Albuterol Nebulized [Ventolin 2.5 mg INHALATION RT-Q4H PRN 09/06/19 09/20/19 History Nebulized] Amiodarone HCl [Pacerone] 100 mg PO DAILY 09/06/19 09/20/19 History Ipratropium-Albuterol Nebulize 3 ml INHALATION RT-Q4H 09/06/19 09/20/19 History [Duoneb 0.5 mg-3 mg/3 ml Soln] oxyCODONE-APAP 5-325MG [Percocet 1 tab PO Q8H PRN 09/06/19 09/20/19 History 5-325 mg] ARIPiprazole [Abilify] 10 mg PO DAILY 09/07/19 09/20/19 History Citalopram Hydrobromide [CeleXA] 20 mg PO DAILY 09/07/19 09/20/19 History Fexofenadine HCl [Genet Allergy] 180 mg PO DAILY 09/15/19 09/20/19 History Allergies Allergy/AdvReac Type Severity Reaction Status Date / Time Penicillins Allergy Swelling Verified 09/20/19 12:15 Surgical - Exam Vital Signs Temp Pulse Resp BP Pulse Ox 98.2 F 77 18 111/73 99 09/20/19 12:04 09/20/19 12:04 09/20/19 12:04 09/20/19 12:04 09/20/19 12:04 Results - Labs 09/23/19 07:21 09/23/19 07:21 Abnormal Lab Results - Last 24 Hours (Table) 09/20/19 09/23/19 09/23/19 Range/Units 13:35 07:21 07:21 RBC 2.56 L (3.80-5.40) m/uL Hgb 8.0 L (11.4-16.0) gm/dL Hct 25.0 L (34.0-46.0) % Plt Count 126 L (150-450) k/uL Retic Count 5.9 H (0.5-2.0) % INR 1.2 H (<1.2) APTT 21.7 L (22.0-30.0) sec Sodium (137-145) mmol/L Creatinine (0.52-1.04) mg/dL Calcium (8.4-10.2) mg/dL Alkaline Phosphatase (38-126) U/L Total Protein (6.3-8.2) g/dL Albumin (3.5-5.0) g/dL Crossmatch See Detail 09/23/19 Range/Units 07:21 RBC (3.80-5.40) m/uL Hgb (11.4-16.0) gm/dL Hct (34.0-46.0) % Plt Count (150-450) k/uL Retic Count (0.5-2.0) % INR (<1.2) APTT (22.0-30.0) sec Sodium 133 L (137-145) mmol/L Creatinine 0.49 L (0.52-1.04) mg/dL Calcium 7.2 L (8.4-10.2) mg/dL Alkaline Phosphatase 32 L (38-126) U/L Total Protein 3.8 L (6.3-8.2) g/dL Albumin 1.8 L (3.5-5.0) g/dL Crossmatch Diabetes panel 09/23/19 Range/Units 07:21 Sodium 133 L (137-145) mmol/L Potassium 3.7 (3.5-5.1) mmol/L Chloride 105 (98-107) mmol/L Carbon Dioxide 27 (22-30) mmol/L BUN 9 (7-17) mg/dL Creatinine 0.49 L (0.52-1.04) mg/dL Glucose 76 (74-99) mg/dL Calcium 7.2 L (8.4-10.2) mg/dL AST 19 (14-36) U/L ALT 8 (4-34) U/L Alkaline Phosphatase 32 L (38-126) U/L Total Protein 3.8 L (6.3-8.2) g/dL Albumin 1.8 L (3.5-5.0) g/dL Calcium panel 09/23/19 Range/Units 07:21 Calcium 7.2 L (8.4-10.2) mg/dL Albumin 1.8 L (3.5-5.0) g/dL Pituitary panel 09/23/19 Range/Units 07:21 Sodium 133 L (137-145) mmol/L Potassium 3.7 (3.5-5.1) mmol/L Chloride 105 (98-107) mmol/L Carbon Dioxide 27 (22-30) mmol/L BUN 9 (7-17) mg/dL Creatinine 0.49 L (0.52-1.04) mg/dL Glucose 76 (74-99) mg/dL Calcium 7.2 L (8.4-10.2) mg/dL Adrenal panel 09/23/19 Range/Units 07:21 Sodium 133 L (137-145) mmol/L Potassium 3.7 (3.5-5.1) mmol/L Chloride 105 (98-107) mmol/L Carbon Dioxide 27 (22-30) mmol/L BUN 9 (7-17) mg/dL Creatinine 0.49 L (0.52-1.04) mg/dL Glucose 76 (74-99) mg/dL Calcium 7.2 L (8.4-10.2) mg/dL Total Bilirubin 0.3 (0.2-1.3) mg/dL AST 19 (14-36) U/L ALT 8 (4-34) U/L Alkaline Phosphatase 32 L (38-126) U/L Total Protein 3.8 L (6.3-8.2) g/dL Albumin 1.8 L (3.5-5.0) g/dL
--- NOTE | 2019-09-23 13:27 | P.CONS ---
History of Present Illness - Reason for Consult Consult date: 09/22/19 Gastric Mass, Biicytopenia Requesting physician: Adolfo [place] - Chief Complaint Anemia symptomatic - History of Present Illness The patient is a 64-year-old white female with multiple medical problems and complex medical history especially over the past 2-3 months. The patient was admitted on 01/28/19, with persistent fatigue, shortness of breath and anemia with hemoglobin in the 7 range. She had a CT of the abdomen and pelvis done at that time which revealed a large mass that appeared to be arising from the greater curvature of the stomach and involving the adjacent duodenum. The patient was transferred to [facility] where she underwent additional wo rkup with an EGD and EUS. Records from [facility] were reviewed. EGD had revealed evidence of a nonbleeding ulcer with biopsy positive for chronic gastritis. On EGD there appeared to be pressure affect due to extrinsic compression from the mass. The patient then had an EUS which appeared to show the mass to be arising from within the gastric wall. 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 However the final diagnosis revealed a spindle cells to be consistent with normal smooth muscle cells. The patient, since then, has had multiple admissions for respiratory issues, as well as recurrent anemia. She was admitted earlier this month for pneumonia and influenza B. She was also noted to have recurrent anemia with hemoglobin in the 6-7 range and received a blood transfusion. She was discharged on 04/03/19 but readmitted with weakness, shortness of breath, and possible GI bleed, from [facility], where she had been transferred after her last admission. She apparently underwent EUS in January and 2018 with tissue biopsy of gastric mass which was negative for malignancy. She underwent EGD this hospital admission and did have clipping of gastric ulcer as well as repeat biopsy of this mass. It is unclear if this mass that was first seen in the Fall of 2018 is the cause of her continued blood loss or if it is the gastric ulcer. On this admission she also is starting to reveal a decrease in her platelet count. 50% doen over 5 days. THe cause of this is also unknown as I do not see any exposure to heparin products. She apparently used to be on Hydrea for polycythemia back in [address] Loredo, although had poor compliance and has not followed up since that time. She does have significant history of tobacco abuse. Review of Systems A 14 point review of system assessed and completed and all negative except HPI Past Medical History Past Medical History: Coronary Artery Disease (CAD), Chest Pain / Angina, Heart Failure, COPD, Deep Vein Thrombosis (DVT), Eye Disorder, Fibromyalgia, GERD/Reflux, GI Bleed, Hyperlipidemia, Hypertension, Myocardial Infarction (SC), Musculoskeletal Disorder, Neurologic Disorder, Osteoarthritis (OA), Pneumonia, Respiratory Disorder, Skin Disorder, Thyroid Disorder, Vascular Disorder Additional Past Medical History / Comment(s): Pt recently admitted to [facility] on 09/15/19 with acute on chronic FI bleed with known gastric ulcer and acute blood loss anemia, one gallstone. Other hx: 11/2012 SC with cardiac arrest/vtach, AICD d/t cardiomyopathy/ Vtach, chronic respiratory failure-uses home O2 prn 2L/NC, tracheobronchitis, tricuspid regurgitation, multiple sclerosis, DVT bilateral legs with GFF, neuropathy bilateral legs/feet, chronic back pain, DDD, migraines, bilateral carpal tunnel syndrome, past L/R rib fractures, past L hip fracture with surgery, PUD with ulcer rupture with surgery, peritonitis, pancreatitis, IBS/ ulcerative colitis, chronic anemia, UTIs, urinary incontinence, endometriosis, hypothyroid, R cataract and L eye cataract forming again, PVD, L leg cellulitis, Last Myocardial Infarction Date:: 2012 History of Any Multi-Drug Resistant Organisms: ESBL Year Discovered:: 02/18/2014 MDRO Source:: Blood and Urine E. coli ESBL Past Surgical History: AICD, Appendectomy, Heart Catheterization, Heart Catheterization With Stent, Orthopedic Surgery, Pacemaker Additional Past Surgical History / Comment(s): Cardioversion, green field filter, laparotomy for ruptured gastric ulcer, R foot fracture with surgery, L hip fracture with surgery-has plate and screw, EGD, colonoscopies with benign polypectomy. Past Anesthesia/Blood Transfusion Reactions: No Reported Reaction Additional Past Anesthesia/Blood Transfusion Reaction / Comm: Pt has received blood in past without reaction. Date of Last Stent Placement:: 11/2012 Type of Cardiac Device: Permanent Pacemaker, AICD Device Placement Date:: 2012 Past Psychological History: Anxiety, Bipolar, Depression, Panic Disorder Additional Psychological History / Comment(s): Pt denies legal guardianship- [employer] contacted probate court and they do not had LG on file. Pt resides alone at [facility]. She states she is never alone, a friend is always with her. She uses a walker or a wheelchair. She has help coming in for cooking, cleaning and bathing. Smoking Status: Former smoker Past Alcohol Use History: None Reported Additional Past Alcohol Use History / Comment(s): Pt started smoking about 1968 and quit in 2012. She abused alcohol in the past but has not drank in 20 yrs. Past Drug Use History: Marijuana Additional Drug Use History / Comment(s): Used marijuana in the past. - Past Family History Mother Family Medical History: Musculoskeletal Disorder Additional Family Medical History / Comment(s): MS Sister(s) Family Medical History: Myocardial Infarction (SC) Additional Family Medical History / Comment(s): SISTER ALSO HAS MS Brother(s) Family Medical History: Musculoskeletal Disorder, Neurologic Disorder Additional Family Medical History / Comment(s): MS Father Additional Family Medical History / Comment(s): ETOH abuse, back surgery Medications and Allergies Home Medications Medication Instructions Recorded Confirmed Type Folic Acid 1 mg PO DAILY 04/08/14 09/20/19 History Thiamine [Vitamin B-1] 100 mg PO DAILY 04/13/15 09/20/19 History Cholecalciferol (Vitamin D3) 2,000 unit PO DAILY 09/27/18 09/20/19 History [Vitamin D3] Ferrous Sulfate [Iron (65 MG 325 mg PO BID 09/27/18 09/20/19 History Elemental)] Levothyroxine Sodium [Synthroid] 100 mcg PO DAILY 09/27/18 09/20/19 History Atorvastatin [Lipitor] 40 mg PO DAILY #30 tab 09/28/18 09/20/19 Rx Isosorbide Mononitrate ER [Imdur] 30 mg PO DAILY 02/06/19 09/20/19 History Albuterol Sulfate [Proair Hfa] 2 puff INHALATION RT-QID PRN 03/16/19 09/20/19 History Omeprazole 40 mg PO BID 03/16/19 09/20/19 History Gabapentin [Neurontin] 300 mg PO TID #9 cap 04/02/19 09/20/19 Rx Baclofen [Lioresal] 20 mg PO TID PRN 08/07/19 09/20/19 History Cyanocobalamin [Vitamin B-12] 1,000 mcg PO DAILY #30 tab 08/11/19 09/20/19 Rx ALPRAZolam [Xanax] 0.25 mg PO TID PRN 09/06/19 09/20/19 History Albuterol Nebulized [Ventolin 2.5 mg INHALATION RT-Q4H PRN 09/06/19 09/20/19 History Nebulized] Amiodarone HCl [Pacerone] 100 mg PO DAILY 09/06/19 09/20/19 History Ipratropium-Albuterol Nebulize 3 ml INHALATION RT-Q4H 09/06/19 09/20/19 History [Duoneb 0.5 mg-3 mg/3 ml Soln] oxyCODONE-APAP 5-325MG [Percocet 1 tab PO Q8H PRN 09/06/19 09/20/19 History 5-325 mg] ARIPiprazole [Abilify] 10 mg PO DAILY 09/07/19 09/20/19 History Citalopram Hydrobromide [CeleXA] 20 mg PO DAILY 09/07/19 09/20/19 History Fexofenadine HCl [Genet Allergy] 180 mg PO DAILY 09/15/19 09/20/19 History Allergies Allergy/AdvReac Type Severity Reaction Status Date / Time Penicillins Allergy Swelling Verified 09/20/19 12:15 Physical Exam Vitals: Vital Signs Temp Pulse Pulse Resp BP BP Pulse Ox 09/22/19 20:38 98.5 F 81 14 96/54 99 09/22/19 20:19 98.5 F 81 14 96/54 99 09/22/19 19:40 76 09/22/19 19:32 76 09/22/19 17:12 98.1 F 77 14 84/56 100 09/22/19 16:42 98.2 F 78 14 83/51 100 09/22/19 16:32 98.2 F 78 17 77/50 100 09/22/19 15:19 76 09/22/19 15:09 76 09/22/19 11:29 97.5 F L 77 18 93/51 100 09/22/19 11:25 76 09/22/19 11:12 75 09/22/19 07:43 76 09/22/19 07:33 74 99 09/22/19 05:14 98.2 F 75 10 L 109/72 100 Intake and Output 09/22/19 09/22/19 09/22/19 06:59 14:59 22:59 Intake Total 450 310 Balance 450 310 Intake: Intake, IV Titration 450 Amount Sodium Chloride 0.9% 1, 450 000 ml @ 50 mls/hr IV . Q20H [facility] Rx#:[id number] Blood Product 310 Rc As-1 Unit 310 [id number] Other: Voiding Method Diaper Diaper Incontinent Incontinent # Voids 4 - Constitutional General appearance: cooperative, no acute distress - EENT Eyes: EOMI, poor dentition ENT: hard of hearing - Neck Neck: normal ROM - Respiratory Respiratory: bilateral: CTA (no increased effort) - Cardiovascular Rhythm: regular Heart sounds: normal: S1, S2 - Gastrointestinal General gastrointestinal: normal bowel sounds, soft - Integumentary Integumentary: pale - Neurologic non-focal - Musculoskeletal Musculoskeletal: generalized weakness - Psychiatric Psychiatric: A&O x's 3, appropriate affect Results CBC & Chem 7: 09/24/19 06:38 09/23/19 07:21 Labs: Abnormal Lab Results - Last 24 Hours (Table) 09/20/19 09/22/19 Range/Units 13:35 11:25 RBC 2.49 L (3.80-5.40) m/uL Hgb 7.5 L (11.4-16.0) gm/dL Hct 25.0 L (34.0-46.0) % MCV 100.5 H (80.0-100.0) fL MCHC 30.0 L (31.0-37.0) g/dL Plt Count 133 L (150-450) k/uL Crossmatch See Detail Assessment and Plan Plan: Assessment and Recommendations: Gastric Mass: - Status POst repeat biopsy - Await Path - Two Prior tissue biopsies negative GI blood loss anemia: - Status POst PRBC transfusion - Will have patient follow-up in office to review path and set up or IV parental iron infusions and CBC monitoring PRN. Physcian TTest: I have completed the full history and physical and agree with above dictation, dictated as a scribe.
[2019-09-23 14:54] LABS: INR 1.2 (<1.2); Partial Thromboplastin Time 25.8 sec (22.0-30.0); Prothrombin Time 11.7 sec (9.0-12.0)
[2019-09-23 17:53] LABS: Folate, Serum 19.7 ng/mL; Iron 24 ug/dL (50-170); Total Iron Binding Capacity 279 ug/dL (228-460)
[2019-09-23 19:19] LABS: HCT 28.1 % (34.0-46.0); Hypochromasia Marked; MCHC 31.9 g/dL (31.0-37.0); MCV 97.1 fL (80.0-100.0); Mean Platelet Volume 8.6; Platelet Count 151 k/uL (150-450); Poikilocytosis Moderate; RDW 15.4 % (11.5-15.5); WBC 6.3 k/uL (3.8-10.6)
[2019-09-23 20:18] LABS: Anisocytosis (M) Present; Band Neutrophils % 1 %; Lymphocytes # (M) 1.83 k/uL (1.0-4.8); Monocytes # (M) 0.19 k/uL (0-1.0); Neutrophils % (M) 59 %; Nucleated Red Blood Cells 0 /100 WBC (0-0); Total Cells Counted 100
[2019-09-23 20:19] LABS: Polychromasia Present
[2019-09-23] MEDS: BACLOFEN 10 MG TAB PO PRN (21:11)
[2019-09-24] MEDS: IPRATROPIUM-ALBUTEROL 3 ML NEB INHALATION SCH ×4 (00:21→10:38)
[2019-09-24] MEDS: SODIUM CHLORIDE 0.9% 1,000 ML IV SCH (01:55)
[2019-09-24] MEDS: LEVOTHYROXINE 100 MCG TAB PO SCH (05:28)
--- NOTE | 2019-09-24 07:37 | P.PN ---
Subjective Progress Note Date: 09/23/19 Principal diagnosis: Melena, anemia of acute blood loss GI bleed, gastric mass 64-year-old female admitted to the hospital with anemia and black tarry stools she underwent endoscopic evaluation with findings of a 3-4 cm mass in the proximal body of the stomach just distal to the cardia with superficial erosions with active oozing and treatment with Endo Clip placement. Biopsies of the mass were performed. Since that time she's been doing well tolerating diet with no further signs or symptoms of GI bleeding. Objective - Vital Signs Vital signs: Vital Signs Temp 98.8 F 09/23/19 11:50 Pulse 70 09/23/19 16:23 Resp 15 09/23/19 11:50 BP 92/57 09/23/19 11:50 Pulse Ox 98 09/23/19 11:50 Intake & Output 09/22/19 09/23/19 09/23/19 18:59 06:59 18:59 Intake Total 0 310 400 Balance 0 310 400 Intake: Intake, IV Titration 400 Amount Sodium Chloride 0.9% 1, 400 000 ml @ 50 mls/hr IV . Q20H [facility] Rx#:[id number] Blood Product 0 310 Rc As-1 Unit 0 310 [id number] Other: Voiding Method Diaper Diaper Incontinent Incontinent # Voids 4 2 - Exam On physical examination, patient appears comfortable in no apparent distress. HEAD: Normocephalic, atraumatic. EYES: No scleral icterus. No conjunctival injection. MOUTH: No lesions, tongue midline. NECK: Trachea midline, no gross abnormalities. ABDOMEN: Soft, nontender to palpation. Bowel sounds are positive. No orga nomegaly. No guarding or rigidity. EXTREMITIES: No pedal edema. SKIN: No rashes, no jaundice. NEUROLOGIC: Alert and oriented x3. - Labs CBC & Chem 7: 09/23/19 18:54 09/23/19 07:21 Labs: Abnormal Lab Results - Last 24 Hours (Table) 09/20/19 09/23/19 09/23/19 Range/Units 13:35 07:21 07:21 RBC 2.56 L (3.80-5.40) m/uL Hgb 8.0 L (11.4-16.0) gm/dL Hct 25.0 L (34.0-46.0) % Plt Count 126 L (150-450) k/uL Retic Count 5.9 H (0.5-2.0) % INR 1.2 H (<1.2) APTT 21.7 L (22.0-30.0) sec Fibrinogen (200-500) mg/dL Sodium (137-145) mmol/L Creatinine (0.52-1.04) mg/dL Calcium (8.4-10.2) mg/dL Alkaline Phosphatase (38-126) U/L Total Protein (6.3-8.2) g/dL Albumin (3.5-5.0) g/dL Crossmatch See Detail 09/23/19 09/23/19 Range/Units 07:21 13:45 RBC (3.80-5.40) m/uL Hgb (11.4-16.0) gm/dL Hct (34.0-46.0) % Plt Count (150-450) k/uL Retic Count (0.5-2.0) % INR 1.2 H (<1.2) APTT (22.0-30.0) sec Fibrinogen 192 L (200-500) mg/dL Sodium 133 L (137-145) mmol/L Creatinine 0.49 L (0.52-1.04) mg/dL Calcium 7.2 L (8.4-10.2) mg/dL Alkaline Phosphatase 32 L (38-126) U/L Total Protein 3.8 L (6.3-8.2) g/dL Albumin 1.8 L (3.5-5.0) g/dL Crossmatch Assessment and Plan (1) Acute on chronic anemia Narrative/Plan: 64-year-old female with known history of a gastric mass in the body of the stomach for which she reports previous endoscopic ultrasound at with biopsies negative for malignancy who presented back to the hospital with melena and associated acute on chronic anemia secondary to blood loss. Patient taken for EGD 2 days ago with findings of a 3-4 cm proximal gastric submucosal mass with losing treated with Endo Clip placement with hemostasis achieved. Since that time no further signs or symptoms of bleeding with hemoglobin remaining stable. Current Visit: No Status: Acute Code(s): D64.9 - ANEMIA, UNSPECIFIED SNOMED Code(s): 720259561 (2) Abdominal mass Current Visit: No Status: Acute Code(s): R19.00 - INTRA-ABD AND PELVIC SWELLING, MASS AND LUMP, UNSP SITE SNOMED Code(s): 392002011 (3) GI hemorrhage Current Visit: No Status: Acute Code(s): K92.2 - GASTROINTESTINAL HEMORRHAGE, UNSPECIFIED SNOMED Code(s): 75451447 Plan: Supportive care Okay for diet Surgical service consulted Continue Protonix therapy Continue to monitor hemoglobin and hematocrit and transfuse as needed Await pathology from biopsies Given recurrent nature of GI bleed patient may require definitive therapy with surgical intervention even if pathology from biopsies of the mass are not malignant that she has had multiple recent admissions for anemia Hematology/oncology following the patient Thank you for allowing us to participate in her care we will continue to follow
[2019-09-24 07:59] LABS: Basophils % (A) 0 %; Eosinophils # (A) 0.3 k/uL (0-0.7); Eosinophils % (A) 7 %; HCT 27.9 % (34.0-46.0); HGB 8.7 gm/dL (11.4-16.0); Hypochromasia Marked; Lymphocytes # (A) 1.1 k/uL (1.0-4.8); Lymphocytes % (A) 22 %; MCH 31.4 pg (25.0-35.0); MCHC 31.3 g/dL (31.0-37.0); MCV 100.1 fL (80.0-100.0); Macrocytosis Slight; Mean Platelet Volume 8.3; Monocytes # (A) 0.3 k/uL (0-1.0); Monocytes % (A) 6 %; Neutrophils # (A) 3.2 k/uL (1.3-7.7); Neutrophils % (A) 64 %; Platelet Count 119 k/uL (150-450); Poikilocytosis Moderate; RBC 2.79 m/uL (3.80-5.40); RDW 14.9 % (11.5-15.5)
[2019-09-24] MEDS: ARIPiprazole 10 MG TAB PO SCH (09:06)
[2019-09-24] MEDS: PANTOPRAZOLE 40 MG/10 ML VIAL IVP SCH (09:06)
[2019-09-24] MEDS: THIAMINE 100 MG TAB PO SCH (09:06)
[2019-09-24] MEDS: AMIODARONE 100 MG TAB PO SCH (09:06)
[2019-09-24] MEDS: FOLIC ACID 1 MG TAB PO SCH (09:06)
[2019-09-24] MEDS: ATORVASTATIN 40 MG TAB PO SCH (09:06)
[2019-09-24] MEDS: ISOSORBIDE MONONITRATE ER 30 MG TAB.ER.24H PO SCH (09:06)
[2019-09-24] MEDS: LORATADINE 10 MG TAB PO SCH (09:07)
[2019-09-24] MEDS: CITALOPRAM HYDROBROMIDE 20 MG TAB PO SCH (09:07)
[2019-09-24] MEDS: CYANOCOBALAMIN 500 MCG TAB PO SCH (09:07)
[2019-09-24] MEDS: FERROUS SULFATE 325 MG TAB PO SCH (09:07)
[2019-09-24] MEDS: GABAPENTIN 300 MG CAP PO SCH (09:07)
[2019-09-24] MEDS: oxyCODONE-APAP 5-325MG 1 EACH TAB PO PRN (09:10)
--- NOTE | 2019-09-24 11:45 | P.PN ---
Subjective Progress Note Date: 09/24/19 CHIEF COMPLAINT: Gastric mass HISTORY OF PRESENT ILLNESS: Patient examined this morning the bedside with Dr. Taylor. She denies abdominal pain. Tolerating diet. She is anxious to be discharged home. PHYSICAL EXAM: VITAL SIGNS: Reviewed GENERAL: Well-developed in no acute distress. HEENT: No sclera icterus. Extraocular movements grossly intact. Moist buccal mucosa. Head is atraumatic, normocephalic. Hears conversational speech. No nasal drainage. NECK: Supple without lymphadenopathy. CHEST: Non-labored respirations and equal bilateral excursions. CARDIOVASCULAR: Regular rate with regular rhythm. Palpable 2+ radial pulses. ABDOMEN: Soft. Nondistended. Nontender. MUSCULOSKELETAL: No clubbing or cyanosis. NEUROLOGIC: No focal or lateralizing signs. Cranial nerves II through XII grossly intact. PSYCH: Appropriate affect. Alert and oriented to person, place and time. SKIN: Well perfused. Good skin turgor. ASSESSMENT: 1. Gastric tumor PLAN: -Await path report -Patient encouraged to follow up with her physicians at [facility] for her gastric mass -No surgical intervention recommended at this facility -Stable for discharge home from a surgical standpoint Nurse practitioner note has been reviewed by physician. Signing provider agrees with the documented findings, assessment, and plan of care. Objective - Vital Signs Vital signs: Vital Signs Temp 97.2 F L 09/24/19 06:19 Pulse 68 09/24/19 10:49 Resp 18 09/24/19 06:19 BP 96/66 09/24/19 06:19 Pulse Ox 98 09/24/19 06:58 Intake & Output 09/23/19 09/24/19 09/24/19 18:59 06:59 18:59 Intake Total 400 1940 Balance 400 1940 Intake: Intake, IV Titration 400 600 Amount Sodium Chloride 0.9% 1, 400 600 000 ml @ 50 mls/hr IV . Q20H [facility] Rx#:[id number] Oral 1340 Other: Voiding Method Diaper Diaper Diaper Incontinent Incontinent Incontinent # Voids 2 # Bowel Movements 2 - Labs CBC & Chem 7: 09/24/19 06:38 09/23/19 07:21 Labs: Abnormal Lab Results - Last 24 Hours (Table) 09/23/19 09/23/19 09/23/19 Range/Units 07:21 13:45 18:54 RBC 2.90 L (3.80-5.40) m/uL Hgb 9.0 L (11.4-16.0) gm/dL Hct 28.1 L (34.0-46.0) % MCV (80.0-100.0) fL Plt Count (150-450) k/uL INR 1.2 H (<1.2) Fibrinogen 192 L (200-500) mg/dL Iron 24 L (50-170) ug/dL % Saturation 8.60 L (12.00-45.00) Vitamin B12 1306.0 H (200.0-944.0) pg/mL 09/24/19 Range/Units 06:38 RBC 2.79 L (3.80-5.40) m/uL Hgb 8.7 L (11.4-16.0) gm/dL Hct 27.9 L (34.0-46.0) % MCV 100.1 H (80.0-100.0) fL Plt Count 119 L (150-450) k/uL INR (<1.2) Fibrinogen (200-500) mg/dL Iron (50-170) ug/dL % Saturation (12.00-45.00) Vitamin B12 (200.0-944.0) pg/mL
[2019-09-24 12:13] VITALS: BP 81/54; PULSE 69; RESP 17; TEMP 98.8
--- NOTE | 2019-09-24 13:31 | P.DS ---
Providers Date of admission: 09/20/19 14:42 Attending physician: Adolfo Bay Consults: 09/20/19 14:43 Consult Physician Routine Consulting Provider: Arabella Solis Consult Reason/Comments: GI bleed Do you want consulting provider notified?: Yes 09/22/19 18:26 Consult Physician Routine Consulting Provider: Cesar Dominique Consult Reason/Comments: Gastric mass-pathology pending Do you want consulting provider notified?: Yes Consult Physician Routine Consulting Provider: Brit Taylor Consult Reason/Comments: Gastric mass surgery -preop evaluation Do you want consulting provider notified?: Yes Primary care physician: Alexei Vera MD Hospital Course: Diagnoses: -Acute on chronic GI bleed -endoscopy done today shows the gastric mass that is showing slow oozing. Gastric clip was placed -Acute Gastric ulcer disease -Acute blood loss anemia from GI bleed -Chronic lower extremity DVT -status post Chemult filter -[place]-ybctaznxm-gorpzuw mass, workup done at [facility].-biopsy showing smooth muscle mass -History of multiple sclerosis, wheelchair bound -Solitary gallstone, asymptomatic -History of Coronary artery disease -COPD in an ex-smoker, no exacerbation -Chronic fibromyalgia -GERD -Hyperlipidemia -Essential hypertension -Primary osteoarthritis -Hypothyroid -Chronic multiple sclerosis -Peripheral neuropathy both the lower extremity -Chronic urinary incontinenc Hospital course: This is a pleasant 78-year-old patient who follows with Dr. Hunter. Seen by me in the ER today. Patient's field marketer Dr. Dionne Woodard. Patient was diagnosed with lung cancer and was treated with chemotherapy and radiation treatment by Dr. Dominique. Patient recently had herpes zoster. Dementia. Patient now presents to the ER accompanied by her son. Has been feeling weak. Admitted with falls and medical debility. She had anemia and tarry stool, found to have 3-4 cm gastric mass with superficial losing status post clipping by GI team. Biopsy is obtained and is pending. I discussed the case with hematology team, as per their notes (( The patient was admitted on 01/28/19, with persistent fatigue, shortness of breath and anemia with hemoglobin in the 7 range. She had a CT of the abdomen and pelvis done at that time which revealed a large mass that appeared to be arising from the greater curvature of the stomach and involving the adjacent duodenum. The patient was transferred to [facility] where she underwent additional workup with an EGD and EUS. Records from [facility] were reviewed. EGD had revealed evidence of a nonbleeding ulcer with biopsy positive for chronic gastritis. On EGD there appeared to be pressure affect due to extrinsic compression from the mass. The patient then had an EUS which appeared to show the mass to be arising from wit hin the gastric wall. 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 However the final diagnosis revealed a spindle cells to be consistent with normal smooth muscle cells. The patient, since then, has had multiple admissions for respiratory issues, as well as recurrent anemia. She was admitted earlier this month for pneumonia and influenza B. She was also noted to have recurrent anemia with hemoglobin in the 6-7 range and received a blood transfusion. She was discharged on 04/03/19 but readmitted with weakness, shortness of breath, and possible GI bleed, from [facility], where she had been transferred after her last admission. She apparently underwent EUS in January and 2018 with tissue biopsy of gastric mass which was negative for malignancy. )) Surgical team evaluated the patient and recommended no surgical intervention and outpatient follow-up with tertiary care center at [facility]. For the last 2 days patient was feeling well and she was eager to be discharged. She denies chest pain or dyspnea. No abdominal pain. No nausea vomiting. No urine or bowel incontinence. No fever Patient was cleared for discharge by GI, hematology/oncology and surgery teams Problems and management plan were discussed with the patient and he verbalized understanding and acceptance Patient was found stable and can be discharged home however he needs follow-up as an outpatient. Patient was instructed to follow up with PCP within one week and patient agrees. Patient also was instructed to follow up with her english composition instructor/oncologist Dr. Dominique in 7-10 days and warehouse administrator Dr[address] Corey Coates in 2 weeks and she agrees patient has appointment with her PCP Dr. Vera on 09/26, [place] him and discussed the case with him including the recommendation for possible surgical intervention and outpatient follow-up with surgery, the need for follow-up with GI team and . tumor could be therefore the stomach biopsy and hematology/oncology follow-up as an outpatient and he currently took note of these Gen: patient is a AAOx3, no distress CVS: S1-S2, RRR, no murmur Lungs: B/L CTA, no wheezing Abdomen: soft, no distention, no tenderness, positive bowel sounds Extremity: no leg edema or induration Gait: Bedbound Time spent more than 35 minutes Patient Condition at Discharge: Stable Plan - Discharge Summary Discharge Rx Participant: No New Discharge Prescriptions: Continue Folic Acid 1 mg PO DAILY Thiamine [Vitamin B-1] 100 mg PO DAILY Cholecalciferol (Vitamin D3) [Vitamin D3] 2,000 unit PO DAILY Ferrous Sulfate [Iron (65 MG Elemental)] 325 mg PO BID Levothyroxine Sodium [Synthroid] 100 mcg PO DAILY Atorvastatin [Lipitor] 40 mg PO DAILY #30 tab Isosorbide Mononitrate ER [Imdur] 30 mg PO DAILY Omeprazole 40 mg PO BID Albuterol Sulfate [Proair Hfa] 2 puff INHALATION RT-QID PRN PRN Reason: Shortness Of Breath Gabapentin [Neurontin] 300 mg PO TID #9 cap Baclofen [Lioresal] 20 mg PO TID PRN PRN Reason: Pain Cyanocobalamin [Vitamin B-12] 1,000 mcg PO DAILY #30 tab Albuterol Nebulized [Ventolin Nebulized] 2.5 mg INHALATION RT-Q4H PRN PRN Reason: Shortness Of Breath Amiodarone HCl [Pacerone] 100 mg PO DAILY Ipratropium-Albuterol Nebulize [Duoneb 0.5 mg-3 mg/3 ml Soln] 3 ml INHALATION RT-Q4H oxyCODONE-APAP 5-325MG [Percocet 5-325 mg] 1 tab PO Q8H PRN PRN Reason: Pain ALPRAZolam [Xanax] 0.25 mg PO TID PRN PRN Reason: Anxiety ARIPiprazole [Abilify] 10 mg PO DAILY Citalopram Hydrobromide [CeleXA] 20 mg PO DAILY Fexofenadine HCl [Genet Allergy] 180 mg PO DAILY Discontinued Potassium Chloride ER [K-Dur 20] 20 meq PO DAILY Furosemide [Lasix] 20 mg PO DAILY Meclizine [Antivert] 25 mg PO QID PRN PRN Reason: Vertigo Discharge Medication List Folic Acid 1 mg PO DAILY 04/08/14 [History] Thiamine [Vitamin B-1] 100 mg PO DAILY 01/04/16 [History] Cholecalciferol (Vitamin D3) [Vitamin D3] 2,000 unit PO DAILY 09/27/18 [History] Ferrous Sulfate [Iron (65 MG Elemental)] 325 mg PO BID 09/27/18 [History] Levothyroxine Sodium [Synthroid] 100 mcg PO DAILY 09/27/18 [History] Atorvastatin [Lipitor] 40 mg PO DAILY #30 tab 09/28/18 [Rx] Isosorbide Mononitrate ER [Imdur] 30 mg PO DAILY 02/06/19 [History] Albuterol Sulfate [Proair Hfa] 2 puff INHALATION RT-QID PRN 03/16/19 [History] Omeprazole 40 mg PO BID 03/16/19 [History] Gabapentin [Neurontin] 300 mg PO TID #9 cap 04/02/19 [Rx] Baclofen [Lioresal] 20 mg PO TID PRN 08/07/19 [History] Cyanocobalamin [Vitamin B-12] 1,000 mcg PO DAILY #30 tab 08/11/19 [Rx] ALPRAZolam [Xanax] 0.25 mg PO TID PRN 09/06/19 [History] Albuterol Nebulized [Ventolin Nebulized] 2.5 mg INHALATION RT-Q4H PRN 09/06/19 [History] Amiodarone HCl [Pacerone] 100 mg PO DAILY 09/06/19 [History] Ipratropium-Albuterol Nebulize [Duoneb 0.5 mg-3 mg/3 ml Soln] 3 ml INHALATION RT-Q4H 09/06/19 [History] oxyCODONE-APAP 5-325MG [Percocet 5-325 mg] 1 tab PO Q8H PRN 09/06/19 [History] ARIPiprazole [Abilify] 10 mg PO DAILY 09/07/19 [History] Citalopram Hydrobromide [CeleXA] 20 mg PO DAILY 09/07/19 [History] Fexofenadine HCl [Genet Allergy] 180 mg PO DAILY 09/15/19 [History] Follow up Appointment(s)/Referral(s): Cesar Dominique MD [STAFF PHYSICIAN] - 10/02/19 1:30 pm (You Will see mike BELTRÁN) Brit Taylor MD [STAFF PHYSICIAN] - As Needed () Arabella Solis MD [STAFF PHYSICIAN] - 2 Weeks (Him Tech please call and schedule this appointment.) [facility], [NON-STAFF] - 1 Week Alexei Vera MD [Primary Care Provider] - 09/27/19 10:00 am Discharge Disposition: HOME SELF-CARE
--- NOTE | 2019-09-24 21:24 | P.PN ---
Subjective Progress Note Date: 09/24/19 Principal diagnosis: Melena, anemia of acute blood loss GI bleed, gastric mass 64-year-old female admitted to the hospital with anemia and black tarry stools she underwent endoscopic evaluation with findings of a 3-4 cm mass in the proximal body of the stomach just distal to the cardia with superficial erosions with active oozing and treatment with Endo Clip placement. Biopsies of the mass were performed. Since that time she's been doing well tolerating diet with no further signs or symptoms of GI bleeding. Objective - Vital Signs Vital signs: Vital Signs Temp 97.2 F L 09/24/19 06:19 Pulse 68 09/24/19 10:49 Resp 18 09/24/19 06:19 BP 96/66 09/24/19 06:19 Pulse Ox 98 09/24/19 06:58 Intake & Output 09/23/19 09/24/19 09/24/19 18:59 06:59 18:59 Intake Total 400 1940 Balance 400 1940 Intake: Intake, IV Titration 400 600 Amount Sodium Chloride 0.9% 1, 400 600 000 ml @ 50 mls/hr IV . Q20H [facility] Rx#:[id number] Oral 1340 Other: Voiding Method Diaper Diaper Diaper Incontinent Incontinent Incontinent # Voids 2 # Bowel Movements 2 - Exam On physical examination, patient appears comfortable in no apparent distress. HEAD: Normocephalic, atraumatic. EYES: No scleral icterus. No conjunctival injection. MOUTH: No lesions, tongue midline. NECK: Trachea midline, no gross abnormalities. ABDOMEN: Soft, nontender to palpation. Bowel sounds are positive. No organomegaly. No guarding or rigidity. EXTREMITIES: No pedal edema. SKIN: No rashes, no jaundice. NEUROLOGIC: Alert and oriented x3. - Labs CBC & Chem 7: 09/24/19 06:38 09/23/19 07:21 Labs: Abnormal Lab Results - Last 24 Hours (Table) 09/23/19 09/23/19 09/23/19 Range/Units 07:21 13:45 18:54 RBC 2.90 L (3.80-5.40) m/uL Hgb 9.0 L (11.4-16.0) gm/dL Hct 28.1 L (34.0-46.0) % MCV (80.0-100.0) fL Plt Count (150-450) k/uL INR 1.2 H (<1.2) Fibrinogen 192 L (200-500) mg/dL Iron 24 L (50-170) ug/dL % Saturation 8.60 L (12.00-45.00) Vitamin B12 1306.0 H (200.0-944.0) pg/mL 09/24/19 Range/Units 06:38 RBC 2.79 L (3.80-5.40) m/uL Hgb 8.7 L (11.4-16.0) gm/dL Hct 27.9 L (34.0-46.0) % MCV 100.1 H (80.0-100.0) fL Plt Count 119 L (150-450) k/uL INR (<1.2) Fibrinogen (200-500) mg/dL Iron (50-170) ug/dL % Saturation (12.00-45.00) Vitamin B12 (200.0-944.0) pg/mL Assessment and Plan (1) Acute on chronic anemia Narrative/Plan: 64-year-old female with known history of a gastric mass in the body of the stomach for which she reports previous endoscopic ultrasound at [facility] with biopsies negative for malignancy who presented back to the hospital with melena and associated acute on chronic anemia secondary to blood loss. Patient taken for EGD 2 days ago with findings of a 3-4 cm proximal gastric submucosal mass with losing treated with Endo Clip placement with hemostasis achieved. Since that time no further signs or symptoms of bleeding with hemoglobin remaining stable. Status: Acute Code(s): D64.9 - ANEMIA, UNSPECIFIED SNOMED Code(s): 361397899 (2) Abdominal mass Status: Acute Code(s): R19.00 - INTRA-ABD AND PELVIC SWELLING, MASS AND LUMP, UNSP SITE SNOMED Code(s): 170543323 (3) GI hemorrhage Status: Acute Code(s): K92.2 - GASTROINTESTINAL HEMORRHAGE, UNSPECIFIED SNOMED Code(s): 54749237 Plan: Supportive care Okay for diet Surgical service consulted, with no plans for intervention at this time Continue Protonix therapy Continue to monitor hemoglobin and hematocrit and transfuse as needed Await pathology from biopsies Given recurrent nature of GI bleed patient may require definitive therapy with surgical intervention even if pathology from biopsies of the mass are not malignant that she has had multiple recent admissions for anemia Hematology/oncology following the patient Thank you for allowing us to participate in her care
--- NOTE | 2019-09-24 22:29 | P.PN ---
Subjective Progress Note Date: 09/24/19 Principal diagnosis: Gastric mass and Symptomatic anemia secondary to GI blood loss Status post GI evaluation, intervention for bleeding ulcer and repeat biopsy of gastric mass. She is eating lunch and feeling better. Objective - Vital Signs Vital signs: Vital Signs Temp 98.8 F 09/24/19 12:12 Pulse 69 09/24/19 12:12 Resp 17 09/24/19 12:12 BP 81/54 09/24/19 12:12 Pulse Ox 98 09/24/19 12:12 Intake & Output 09/24/19 09/24/19 09/25/19 06:59 18:59 06:59 Intake Total 1939 Balance 1939 Intake: Intake, IV Titration 600 Amount Sodium Chloride 0.9% 1, 600 000 ml @ 50 mls/hr IV . Q20H [facility] Rx#:[id number] Oral 1340 Other: Voiding Method Diaper Diaper Incontinent Incontinent # Voids 2 # Bowel Movements 2 - Exam - Constitutional General appearance: cooperative, no acute distress - EENT Eyes: EOMI, poor dentition ENT: hard of hearing - Neck Neck: normal ROM - Respiratory Respiratory: bilateral: CTA (no increased effort) - Cardiovascular Rhythm: regular Heart sounds: normal: S1, S2 - Gastrointestinal General gastrointestinal: normal bowel sounds, soft - Integumentary Integumentary: pale - Neurologic non-focal - Musculoskeletal Musculoskeletal: generalized weakness - Psychiatric Psychiatric: A&O x's 3, appropriate affect - Labs CBC & Chem 7: 09/24/19 06:38 09/23/19 07:21 Labs: Abnormal Lab Results - Last 24 Hours (Table) 09/24/19 Range/Units 06:38 RBC 2.79 L (3.80-5.40) m/uL Hgb 8.7 L (11.4-16.0) gm/dL Hct 27.9 L (34.0-46.0) % MCV 100.1 H (80.0-100.0) fL Plt Count 119 L (150-450) k/uL Assessment and Plan Plan: Assessment and Recommendations: Gastric Mass: - Status POst repeat biopsy - Await Path - Two Prior tissue biopsies negative GI blood loss anemia: - Status POst PRBC transfusion - Will have patient follow-up in office to review path and set up or IV parental iron infusions and CBC monitoring PRN. Plan: - Follow-up in office for CBC check and Parental iron infusions - Await path - Ok for discharge from oncology stand point, re-emphasized to patient gabbya abbie of close follow-up
== END 2019-09-24 15:06 | disposition home or self-care (01) | DRG 378 ==
LOC: EC 12:01 → 5NMEDONC 14:42
PROVIDERS: ADMIT Hospitalist; ATTEND Hospitalist
PROC: 0DB68ZX Excision of Stomach, Via Natural or Artificial Opening Endoscopic, Diagnostic (ICD-10-PCS; principal; 2019-09-21 07:30)
PROC: 0W3P8ZZ Control Bleeding in Gastrointestinal Tract, Via Natural or Artificial Opening Endoscopic (ICD-10-PCS; principal; 2019-09-21 07:30)
PROC: 30233N1 Transfusion of Nonautologous Red Blood Cells into Peripheral Vein, Percutaneous Approach (ICD-10-PCS; 2019-09-24)
DX: K25.4 Chronic or unspecified gastric ulcer with hemorrhage (principal); I42.9 Cardiomyopathy, unspecified; D62 Acute posthemorrhagic anemia; J44.1 Chronic obstructive pulmonary disease with (acute) exacerbation; I82.509 Chronic embolism and thrombosis of unspecified deep veins of unspecified lower extremity; J96.10 Chronic respiratory failure, unspecified whether with hypoxia or hypercapnia; K51.90 Ulcerative colitis, unspecified, without complications; I25.10 Atherosclerotic heart disease of native coronary artery without angina pectoris; G62.9 Polyneuropathy, unspecified; G35 Multiple sclerosis; F41.0 Panic disorder [episodic paroxysmal anxiety]; F31.9 Bipolar disorder, unspecified; K21.9 Gastro-esophageal reflux disease without esophagitis; M79.7 Fibromyalgia; E78.5 Hyperlipidemia, unspecified; R19.00 Intra-abdominal and pelvic swelling, mass and lump, unspecified site; I73.9 Peripheral vascular disease, unspecified; I07.1 Rheumatic tricuspid insufficiency; F03.90 Unspecified dementia, unspecified severity, without behavioral disturbance, psychotic disturbance, mood disturbance, and anxiety; G56.03 Carpal tunnel syndrome, bilateral upper limbs; I50.9 Heart failure, unspecified; M19.91 Primary osteoarthritis, unspecified site; E03.9 Hypothyroidism, unspecified; I11.0 Hypertensive heart disease with heart failure; R32 Unspecified urinary incontinence; K80.20 Calculus of gallbladder without cholecystitis without obstruction; Z11.59 Encounter for screening for other viral diseases; Z79.890 Hormone replacement therapy; Z79.899 Other long term (current) drug therapy; Z88.0 Allergy status to penicillin; I25.2 Old myocardial infarction; Z87.01 Personal history of pneumonia (recurrent); Z90.49 Acquired absence of other specified parts of digestive tract; Z95.5 Presence of coronary angioplasty implant and graft; Z98.890 Other specified postprocedural states; Z95.810 Presence of automatic (implantable) cardiac defibrillator; Z87.891 Personal history of nicotine dependence; Z82.49 Family history of ischemic heart disease and other diseases of the circulatory system; Z92.3 Personal history of irradiation; Z92.21 Personal history of antineoplastic chemotherapy; Z74.01 Bed confinement status; Z86.74 Personal history of sudden cardiac arrest; Z99.3 Dependence on wheelchair; Z87.440 Personal history of urinary (tract) infections
CPT/HCPCS: 36415; 43239; 43255; 80053; 82272; 82607; 82746; 83540; 83550; 83615; 83735; 83921; 85025; 85027; 85045; 85384; 85610; 85730; 86850; 86900; 86901; 86920; 88305; 94640; 94760; 96374; 99285

== ENCOUNTER 2019-10-06 22:11 | Inpatient (IN) | payer OTHER ==
[2019-10-06] MEDS ORDERED: SODIUM CHLORIDE 0.9% 500 ML 500 ML IV ONE (22:49)
--- NOTE | 2019-10-07 00:09 | ED ---
SOB HPI - General Chief Complaint: Shortness of Breath Stated Complaint: ANTHONY Time Seen by Provider: 10/06/19 22:15 Source: EMS Mode of arrival: EMS Limitations: no limitations - History of Present Illness Initial Comments: The patient is a 64-year-old female presents emergency room with reported shortness of breath. History of COPD. She was also recent hospitalized for a GI bleed secondary to stomach mass. Patient arrives stating that her melenic s tools started home. Patient is a poor historian and cannot state when the melenic stool started again. She denies abdominal pain. No fevers or chills. Denies chest pain. Remainder of hte HPI is limited as the patient states that I am "asking too many questions" - Related Data Home Medications Medication Instructions Recorded Confirmed Folic Acid 1 mg PO DAILY 04/08/14 10/07/19 Thiamine [Vitamin B-1] 100 mg PO DAILY 04/13/15 10/07/19 Cholecalciferol (Vitamin D3) 2,000 unit PO DAILY 09/27/18 10/07/19 [Vitamin D3] Ferrous Sulfate [Iron (65 MG 325 mg PO BID 09/27/18 10/07/19 Elemental)] Levothyroxine Sodium [Synthroid] 100 mcg PO DAILY 09/27/18 10/07/19 Isosorbide Mononitrate ER [Imdur] 30 mg PO DAILY 02/06/19 10/07/19 Albuterol Sulfate [Proair Hfa] 2 puff INHALATION RT-QID PRN 03/16/19 10/07/19 Omeprazole 40 mg PO BID 03/16/19 10/07/19 Baclofen [Lioresal] 20 mg PO TID PRN 08/07/19 10/07/19 Albuterol Nebulized [Ventolin 2.5 mg INHALATION RT-QID PRN 09/06/19 10/07/19 Nebulized] Amiodarone HCl [Pacerone] 100 mg PO DAILY 09/06/19 10/07/19 Ipratropium-Albuterol Nebulize 3 ml INHALATION RT-Q4H 09/06/19 10/07/19 [Duoneb 0.5 mg-3 mg/3 ml Soln] oxyCODONE-APAP 5-325MG [Percocet 1 tab PO Q8H PRN 09/06/19 10/07/19 5-325 mg] ARIPiprazole [Abilify] 10 mg PO DAILY 09/07/19 10/07/19 Citalopram Hydrobromide [CeleXA] 20 mg PO DAILY 09/07/19 10/07/19 Fexofenadine HCl [Genet Allergy] 180 mg PO DAILY 09/15/19 10/07/19 Haloperidol Oral Soln [Haldol Oral 1 mg PO Q6H PRN 10/07/19 10/07/19 Soln] LORazepam [Ativan] 0.5 mg PO Q4H PRN 10/07/19 10/07/19 MORPHINE ORAL CK CONC 20mg/mL 5 mg PO Q4H PRN 10/07/19 10/07/19 [Roxanol Oral Soln Conc 20MG/ML] Previous Rx's Medication Instructions Recorded Atorvastatin [Lipitor] 40 mg PO DAILY #30 tab 09/28/18 Gabapentin [Neurontin] 300 mg PO TID #9 cap 04/02/19 Cyanocobalamin [Vitamin B-12] 1,000 mcg PO DAILY #30 tab 08/11/19 Allergies Allergy/AdvReac Type Severity Reaction Status Date / Time Penicillins Allergy Swelling/facial Verified 10/07/19 08:47 numbness Review of Systems ROS Statement: Those systems with pertinent positive or pertinent negative responses have been documented in the HPI. ROS Other: All systems not noted in ROS Statement are negative. Past Medical History Past Medical History: Coronary Artery Disease (CAD), Chest Pain / Angina, Heart Failure, COPD, Deep Vein Thrombosis (DVT), Eye Disorder, Fibromyalgia, GERD/Reflux, GI Bleed, Hyperlipidemia, Hypertension, Myocardial Infarction (MO), Musculoskeletal Disorder, Neurologic Disorder, Osteoarthritis (OA), Pneumonia, Respiratory Disorder, Skin Disorder, Thyroid Disorder, Vascular Disorder Additional Past Medical History / Comment(s): Pt recently admitted to [facility] on 09/15/19 with acute on chronic FI bleed with known gastric ulcer and acute blood loss anemia, one gallstone. Other hx: 11/2012 MO with cardiac arrest/vtach, AICD d/t cardiomyopathy/ Vtach, chronic respiratory failure-uses home O2 prn 2L/NC, tracheobronchitis, tricuspid regurgitation, multiple sclerosis, DVT bilateral legs with GFF, neuropathy bilateral legs/feet, chronic back pain, DDD, migraines, bilateral carpal tunnel syndrome, past L/R rib fractures, past L hip fracture with surgery, PUD with ulcer rupture with surgery, peritonitis, pancreatitis, IBS/ ulcerative colitis, chronic anemia, UTIs, urinary incontinence, endometriosis, hypothyroid, R cataract and L eye cataract forming again, PVD, L leg cellulitis, Last Myocardial Infarction Date:: 2012 History of Any Multi-Drug Resistant Organisms: ESBL Date of last positivie culture/infection: 02/18/2014 MDRO Source:: Blood and Urine E. coli ESBL Past Surgical History: AICD, Appendectomy, Heart Catheterization, Heart Catheterization With Stent, Orthopedic Surgery, Pacemaker Additional Past Surgical History / Comment(s): Cardioversion, green field filter, laparotomy for ruptured gastric ulcer, R foot fracture with surgery, L hip fracture with surgery-has plate and screw, EGD, colonoscopies with benign polypectomy. Past Anesthesia/Blood Transfusion Reactions: No Reported Reaction Additional Past Anesthesia/Blood Transfusion Reaction / Comment(s): Pt has received blood in past without reaction. Date of Last Stent Placement:: 11/2012 Type of Cardiac Device: Permanent Pacemaker, AICD Device Placement Date:: 2012 Past Psychological History: Anxiety, Bipolar, Depression, Panic Disorder Smoking Status: Former smoker Past Alcohol Use History: None Reported Past Drug Use History: Marijuana - Past Family History Mother Family Medical History: Musculoskeletal Disorder Additional Family Medical History / Comment(s): MS Sister(s) Family Medical History: Myocardial Infarction (MO) Additional Family Medical History / Comment(s): SISTER ALSO HAS MS Brother(s) Family Medical History: Musculoskeletal Disorder, Neurologic Disorder Additional Family Medical History / Comment(s): MS Father Additional Family Medical History / Comment(s): ETOH abuse, back surgery General Exam Limitations: no limitations General appearance: alert, in no apparent distress Head exam: Present: atraumatic, normocephalic, normal inspection Eye exam: Present: normal appearance, PERRL, EOMI. Absent: scleral icterus, conjunctival injection, periorbital swelling ENT exam: Present: normal exam, mucous membranes moist Neck exam: Present: normal inspection. Absent: tenderness, meningismus, lymphadenopathy Respiratory exam: Present: normal lung sounds bilaterally. Absent: respiratory distress, wheezes, rales, rhonchi, stridor Cardiovascular Exam: Present: regular rate, normal rhythm, normal heart sounds. Absent: systolic murmur, diastolic murmur, rubs, gallop, clicks GI/Abdominal exam: Present: soft, normal bowel sounds. Absent: distended, tenderness, guarding, rebound, rigid Rectal exam: Present: heme (+) stool, black stool Extremities exam: Present: normal inspection, full ROM, normal capillary refill. Absent: tenderness, pedal edema, joint swelling, calf tenderness Neurological exam: Present: alert, oriented X3, CN II-XII intact Psychiatric exam: Present: normal affect, agitated Skin exam: Present: warm, dry, pallor Course Vital Signs 10/06/19 10/06/19 10/06/19 22:12 22:17 22:20 Temperature 98.3 F Pulse Rate 84 Respiratory 18 Rate Blood Pressure 92/37 92/37 92/37 O2 Sat by Pulse 100 100 Oximetry 10/06/19 10/06/19 10/06/19 22:30 22:40 22:50 Temperature Pulse Rate Respiratory Rate Blood Pressure 92/37 92/37 92/37 O2 Sat by Pulse Oximetry 10/06/19 10/06/19 10/06/19 23:00 23:10 23:20 Temperature Pulse Rate Respiratory Rate Blood Pressure 92/37 92/37 82/41 O2 Sat by Pulse 87 L Oximetry 10/06/19 10/06/19 10/06/19 23:30 23:40 23:50 Temperature Pulse Rate Respiratory Rate Blood Pressure 82/41 82/41 82/41 O2 Sat by Pulse Oximetry 10/07/19 10/07/19 10/07/19 00:00 00:10 00:18 Temperature Pulse Rate 100 Respiratory 18 Rate Blood Pressure 82/41 79/47 79/47 O2 Sat by Pulse 98 Oximetry 10/07/19 10/07/19 10/07/19 00:20 00:30 00:40 Temperature Pulse Rate Respiratory Rate Blood Pressure 79/47 79/47 79/47 O2 Sat by Pulse 97 Oximetry 10/07/19 10/07/19 10/07/19 00:50 01:00 01:10 Temperature Pulse Rate Respiratory Rate Blood Pressure 79/47 79/47 79/47 O2 Sat by Pulse 75 L 97 Oximetry 10/07/19 10/07/19 10/07/19 01:20 01:30 01:40 Temperature Pulse Rate 81 82 82 Respiratory 18 13 0 L Rate Blood Pressure 79/47 80/36 80/36 O2 Sat by Pulse 94 L 93 L 94 L Oximetry 10/07/19 10/07/19 10/07/19 01:50 02:00 02:10 Temperature Pulse Rate 85 84 85 Respiratory 6 L 21 23 Rate Blood Pressure 80/36 91/44 O2 Sat by Pulse Oximetry 10/07/19 02:20 Temperature Pulse Rate 79 Respiratory 11 L Rate Blood Pressure 91/44 O2 Sat by Pulse Oximetry Medical Decision Making - Medical Decision Making Upon arrival the patient is placed into room 2. A thorough history and physical exam was performed. Peripheral access is difficult to establish therefore I do put into ultrasound-guided IVs. Patient does have a large melenic stool filling her brief. Laboratory studies were conducted demonstrating hemoglobin of 5.1. Sodium 129. Lactic acid 2.3. I did transfuse the patient 2 units of PRBC. Patient has received her care out of our facility as well as report. Patient is requesting admission to our hospital as she sees Dr. Herrera. I did recommend central line placement for the patient's low blood pressures. Patient states that she is not concerned about her low blood pressure as this is what it normally runs. I continue to discuss the benefits of placing a central line however the patient adamantly refuses. She has [place] to make her own decisions therefore she is admitted knowing the risks. I admitted the patient to Dr. Frias who states that Dr. Bay will be back in the morning and therefore the patient needs to be admitted to Dr. Bay. I discussed the case with Dr. Driver who accepted the patient into the unit. We also paged Dr. Solis who recognized the patients presence in the ED via [facility] but does not return my phone call. patient was then transferred to the unit in serious, yet stable condition - Lab Data Result diagrams: 10/11/19 04:12 10/11/19 04:12 Lab Results 10/06/19 10/06/19 10/06/19 Range/Units 23:29 23:58 23:58 WBC 8.7 (3.8-10.6) k/uL RBC 1.65 L (3.80-5.40) m/uL Hgb 5.1 L* D (11.4-16.0) gm/dL Hct 16.8 L* (34.0-46.0) % MCV 101.7 H (80.0-100.0) fL MCH 31.0 (25.0-35.0) pg MCHC 30.5 L (31.0-37.0) g/dL RDW 16.0 H (11.5-15.5) % Plt Count 150 (150-450) k/uL Neutrophils % 73 % Lymphocytes % 16 % Monocytes % 8 % Eosinophils % 1 % Basophils % 0 % Neutrophils # 6.4 (1.3-7.7) k/uL Lymphocytes # 1.4 (1.0-4.8) k/uL Monocytes # 0.7 (0-1.0) k/uL Eosinophils # 0.1 (0-0.7) k/uL Basophils # 0.0 (0-0.2) k/uL Hypochromasia Marked Poikilocytosis Moderate Macrocytosis Slight PT 11.1 (9.0-12.0) sec INR 1.1 (<1.2) APTT 18.1 L (22.0-30.0) sec D-Dimer 1.49 H (<0.60) mg/L FEU Sodium (137-145) mmol/L Potassium (3.5-5.1) mmol/L Chloride (98-107) mmol/L Carbon Dioxide (22-30) mmol/L Anion Gap mmol/L BUN (7-17) mg/dL Creatinine (0.52-1.04) mg/dL Est GFR (CKD-EPI)AfAm (>60 ml/min/1.73 sqM) Est GFR (CKD-EPI)NonAf (>60 ml/min/1.73 sqM) Glucose (74-99) mg/dL Lactic Ac Sepsis Rflx Plasma Lactic Acid Zaki (0.7-2.0) mmol/L Calcium (8.4-10.2) mg/dL Magnesium (1.6-2.3) mg/dL Total Bilirubin (0.2-1.3) mg/dL AST (14-36) U/L ALT (4-34) U/L Alkaline Phosphatase (38-126) U/L Troponin I (0.000-0.034) ng/mL NT-Pro-B Natriuret Pep pg/mL Total Protein (6.3-8.2) g/dL Albumin (3.5-5.0) g/dL Stool Occult Blood Positive H (Negative) Blood Type Blood Type Recheck Bld Type Recheck Status Antibody Screen Crossmatch Spec Expiration Date 10/06/19 10/06/19 10/06/19 Range/Units 23:58 23:58 23:58 WBC (3.8-10.6) k/uL RBC (3.80-5.40) m/uL Hgb (11.4-16.0) gm/dL Hct (34.0-46.0) % MCV (80.0-100.0) fL MCH (25.0-35.0) pg MCHC (31.0-37.0) g/dL RDW (11.5-15.5) % Plt Count (150-450) k/uL Neutrophils % % Lymphocytes % % Monocytes % % Eosinophils % % Basophils % % Neutrophils # (1.3-7.7) k/uL Lymphocytes # (1.0-4.8) k/uL Monocytes # (0-1.0) k/uL Eosinophils # (0-0.7) k/uL Basophils # (0-0.2) k/uL Hypochromasia Poikilocytosis Macrocytosis PT (9.0-12.0) sec INR (<1.2) APTT (22.0-30.0) sec D-Dimer (<0.60) mg/L FEU Sodium 129 L (137-145) mmol/L Potassium 4.1 (3.5-5.1) mmol/L Chloride 96 L (98-107) mmol/L Carbon Dioxide 27 (22-30) mmol/L Anion Gap 6 mmol/L BUN 19 H (7-17) mg/dL Creatinine 0.65 (0.52-1.04) mg/dL Est GFR (CKD-EPI)AfAm >90 (>60 ml/min/1.73 sqM) Est GFR (CKD-EPI)NonAf >90 (>60 ml/min/1.73 sqM) Glucose 109 H (74-99) mg/dL Lactic Ac Sepsis Rflx Plasma Lactic Acid Zaki 2.3 H* (0.7-2.0) mmol/L Calcium 7.8 L (8.4-10.2) mg/dL Magnesium 1.8 (1.6-2.3) mg/dL Total Bilirubin 0.2 (0.2-1.3) mg/dL AST 34 (14-36) U/L ALT 14 (4-34) U/L Alkaline Phosphatase 45 (38-126) U/L Troponin I <0.012 (0.000-0.034) ng/mL NT-Pro-B Natriuret Pep pg/mL Total Protein 4.5 L (6.3-8.2) g/dL Albumin 2.2 L (3.5-5.0) g/dL Stool Occult Blood (Negative) Blood Type Blood Type Recheck Bld Type Recheck Status Antibody Screen Crossmatch Spec Expiration Date 10/06/19 10/07/19 10/07/19 Range/Units 23:58 00:31 00:43 WBC (3.8-10.6) k/uL RBC (3.80-5.40) m/uL Hgb (11.4-16.0) gm/dL Hct (34.0-46.0) % MCV (80.0-100.0) fL MCH (25.0-35.0) pg MCHC (31.0-37.0) g/dL RDW (11.5-15.5) % Plt Count (150-450) k/uL Neutrophils % % Lymphocytes % % Monocytes % % Eosinophils % % Basophils % % Neutrophils # (1.3-7.7) k/uL Lymphocytes # (1.0-4.8) k/uL Monocytes # (0-1.0) k/uL Eosinophils # (0-0.7) k/uL Basophils # (0-0.2) k/uL Hypochromasia Poikilocytosis Macrocytosis PT (9.0-12.0) sec INR (<1.2) APTT (22.0-30.0) sec D-Dimer (<0.60) mg/L FEU Sodium (137-145) mmol/L Potassium (3.5-5.1) mmol/L Chloride (98-107) mmol/L Carbon Dioxide (22-30) mmol/L Anion Gap mmol/L BUN (7-17) mg/dL Creatinine (0.52-1.04) mg/dL Est GFR (CKD-EPI)AfAm (>60 ml/min/1.73 sqM) Est GFR (CKD-EPI)NonAf (>60 ml/min/1.73 sqM) Glucose (74-99) mg/dL Lactic Ac Sepsis Rflx Y Plasma Lactic Acid Zaki (0.7-2.0) mmol/L Calcium (8.4-10.2) mg/dL Magnesium (1.6-2.3) mg/dL Total Bilirubin (0.2-1.3) mg/dL AST (14-36) U/L ALT (4-34) U/L Alkaline Phosphatase (38-126) U/L Troponin I (0.000-0.034) ng/mL NT-Pro-B Natriuret Pep 1460 pg/mL Total Protein (6.3-8.2) g/dL Albumin (3.5-5.0) g/dL Stool Occult Blood (Negative) Blood Type A Positive Blood Type Recheck A Pos Bld Type Recheck Status No Antibody Screen NEGATIVE Crossmatch See Detail Spec Expiration Date 10/10/2019 - 2332 - EKG Data EKG Comments: EKG demonstrates what is possibly a flutter with a rate of 84. [place] interval 134. QRS 64. QTC of 451. No acute ST segment elevations Critical Care Time Critical Care Time: Yes Critical Care Time: 40 minutes Disposition Clinical Impression: Acute on chronic anemia, Melena, Hypotension, GI hemorrhage Disposition: ADMITTED IP TO THIS [facility] Condition: Serious Is patient prescribed a controlled substance at d/c from ED?: No Decision to Admit Reason: Admit from EC Decision Date: 10/07/19 Decision Time: 01:21
--- NOTE | 2019-10-07 00:29 | XR ---
EXAMINATION TYPE: XR chest 2V DATE OF EXAM: 10/07/2019 COMPARISON: 09/15/2019 HISTORY: Difficulty breathing TECHNIQUE: 2 views FINDINGS: There is no heart failure nor confluent pneumonic infiltrate. There is mild flattening of t he diaphragm. There is 0.5% anterior wedging of a mid thoracic vertebra. There is left axillary pacem jared. There are no hilar masses. IMPRESSION: COPD. No active cardiopulmonary disease. No change.
[2019-10-07 00:31] LABS: Basophils % (A) 0 %; Eosinophils # (A) 0.1 k/uL (0-0.7); Eosinophils % (A) 1 %; Hypochromasia Marked; Lymphocytes # (A) 1.4 k/uL (1.0-4.8); Lymphocytes % (A) 16 %; MCHC 30.5 g/dL (31.0-37.0); MCV 101.7 fL (80.0-100.0); Macrocytosis Slight; Mean Platelet Volume 8.7; Monocytes # (A) 0.7 k/uL (0-1.0); Monocytes % (A) 8 %; Neutrophils # (A) 6.4 k/uL (1.3-7.7); Neutrophils % (A) 73 %; Platelet Count 150 k/uL (150-450); Poikilocytosis Moderate; RBC 1.65 m/uL (3.80-5.40); WBC 8.7 k/uL (3.8-10.6)
[2019-10-07 00:33] LABS: HGB 5.1 gm/dL (11.4-16.0)
[2019-10-07 00:34] LABS: HCT 16.8 % (34.0-46.0)
[2019-10-07 00:36] LABS: ALT 14 U/L (4-34); AST 34 U/L (14-36); African American GFR (CKD) >90 (>60 ml/min/1.73 sqM); Albumin 2.2 g/dL (3.5-5.0); Alkaline Phosphatase 45 U/L (38-126); Anion Gap 6 mmol/L; Blood Urea Nitrogen 19 mg/dL (7-17); Calcium 7.8 mg/dL (8.4-10.2); Carbon Dioxide 27 mmol/L (22-30); Chloride 96 mmol/L (98-107); Glucose 109 mg/dL (74-99); Magnesium 1.8 mg/dL (1.6-2.3); Non-African American GFR(CKD) >90 (>60 ml/min/1.73 sqM); Potassium 4.1 mmol/L (3.5-5.1); Sodium 129 mmol/L (137-145); Total Bilirubin 0.2 mg/dL (0.2-1.3); Total Protein 4.5 g/dL (6.3-8.2)
[2019-10-07 00:43] LABS: INR 1.1 (<1.2); Prothrombin Time 11.1 sec (9.0-12.0)
[2019-10-07 00:45] LABS: D-Dimer 1.49 mg/L FEU (<0.60); Partial Thromboplastin Time 18.1 sec (22.0-30.0)
[2019-10-07] MEDS ORDERED: NALOXONE 0.4 MG/ML 1 ML VIAL IV PRN (01:21)
[2019-10-07 02:03] LABS: Glucose,Whole Blood 125 mg/dL (75-99)
[2019-10-07] MEDS ORDERED: PANTOPRAZOLE 40 MG/10 ML VIAL IVP ONE (02:55)
[2019-10-07] MEDS: IPRATROPIUM-ALBUTEROL 3 ML NEB INHALATION SCH ×6 (05:41→23:33)
[2019-10-07 07:26] LABS: Appearance,Urine Clear (Clear); Bacteria,Urine Many /hpf; Bilirubin,Urine Negative (Negative); Blood,Urine Negative (Negative); Color,Urine Yellow; Glucose,Urine (UA) Negative (Negative); Ketones,Urine Negative (Negative); Leukocyte Esterase,Urine Small (Negative); Mucus,Urine Rare /hpf; Nitrite,Urine Negative (Negative); PH, Urine 6.5 (5.0-8.0); Protein,Urine Negative (Negative); RBC,Urine 1 /hpf (0-5); Specific Gravity,Urine 1.018 (1.001-1.035); Squamous Epithelial Cell,Urine 1 /hpf (0-4); Urobilinogen,Urine <2.0 mg/dL (<2.0); WBC,Urine 8 /hpf (0-5)
--- NOTE | 2019-10-07 07:28 | XR ---
EXAMINATION TYPE: XR chest 1V DATE OF EXAM: 10/07/2019 COMPARISON: 10/07/2019 HISTORY: 64 year-old female shortness of breath. TECHNIQUE: Single frontal view of the chest is obtained. FINDINGS: Left anterior chest wall AICD generator with right ventricular lead. Patient is markedly rotated towa rds the right altering the normal cardiac and mediastinal contours. Heart appears upper limits of nor mal in size. Old right-sided rib fracture deformities. Mild hyperinflation. Mild interstitial promine nce is unchanged. No richie consolidation or sizable effusion. IMPRESSION: Limited, rotated exam. Suspect underlying COPD. No definite acute process.
[2019-10-07 12:14] LABS: Glucose,Whole Blood 95 mg/dL (75-99)
[2019-10-07] MEDS ORDERED: SODIUM CHLORIDE 0.9% 1,000 ML IV ONE (12:31)
--- NOTE | 2019-10-07 13:00 | P.CNPUL ---
History of Present Illness Consult date: 10/07/19 Requesting physician: Zarina Frias Reason for consult: other (GI bleeding) Chief complaint: Shortness of breath History of present illness: This is a 64-year-old female with history of multiple medical problems, she was recently inpatient for upper GI bleeding secondary to stomach mass. Workup i ncluding EGD and biopsy of the mass was basically nondiagnostic. Patient came into the ER yesterday complaining of shortness of breath, and also complaining of melanotic stools. Denies any abdominal pain, denies any cough, no wheezing, no fever, no chills, no hemoptysis. Patient was noted to have extremely low hemoglobin of 5.1. Patient was also noted to have low sodium of 129. And positive occult blood. Considering her extremely low hemoglobin, patient was admitted, started on blood transfusion, she received so far 1 unit of packed RBCs, and we were asked to see her on consultation because the patient was admitted to the ICU. GI consultation is pending. Patient was recently discharg ed from the hospital on 09/24/19, she had multiple admissions for GI bleeding, and on her last admission she underwent EGD and she was found to have a gastric mass. Tissue biopsy has been negative for malignancy. She was seen at the time by surgery, and recommended that the patient gets transferred to a tertiary care center. And her primary care physician was notified by the discharge physician that the patient will eventually need to be transferred to a tertiary care center like [facility]. Apparently this was never done. Patient is not on any anti-coagulation therapy. She is not on any blood thinners. I saw the patient in the ICU, and she seemed to be hemodynamically stable. She received already 1 unit of packed RBCs, and she is to receive another unit in the next hour or so. Patient is on 2 L nasal cannula, she has IV fluid at O but I will increase the IV fluid to 75 mL per hour. She was noted to have swelling of her lower extremities, and redness with cellulitis of lower extremities. Hence I recommended ultrasound of lower extremities and recommended. Review of Systems Constitutional: Fatigue and poor appetite. No fever no chills. Eyes: Denies any blurred vision, no diplopia, no visual changes. Ears: deny: decreased hearing, ear discharge, earache, tinnitus Ears, nose, mouth and throat: Denies headache, Denies sore throat Cardiovascular: Reports decreased exercise tolerance, Reports dyspnea on exertion, Reports leg edema, Reports shortness of breath Respiratory: Denies cough wheezing or shortness of breath Gastrointestinal: As noted in HPI, Genitourinary: No dysuria frequency urgency or hematuria. Musculoskeletal: Reports most generalized weakness, myalgia, no limitation in range of motion Integumentary: Complains of redness and chronic cellulitis possibly of lower extremities Neurological: Denies headache blurred vision dizziness. Psychiatric: Denies symptoms of active depression Endocrine: Reports fatigue, denies heat or cold intolerance. Hematologic/Lymphatic: Denies any clotting bleeding or bruising Past Medical History Past Medical History: Coronary Artery Disease (CAD), Chest Pain / Angina, Heart Failure, COPD, Deep Vein Thrombosis (DVT), Eye Disorder, Fibromyalgia, GERD/Reflux, GI Bleed, Hyperlipidemia, Hypertension, Myocardial Infarction (IL), Musculoskeletal Disorder, Neurologic Disorder, Osteoarthritis (OA), Pneumonia, Respiratory Disorder, Skin Disorder, Thyroid Disorder, Vascular Disorder Additional Past Medical History / Comment(s): Pt recently admitted to [facility] on 09/15/19 with acute on chronic FI bleed with known gastric ulcer and acute blood loss anemia, one gallstone. Other hx: 11/2012 IL with cardiac arrest/vtach, AICD d/t cardiomyopathy/ Vtach, chronic respiratory failure-uses home O2 prn 2L/NC, tracheobronchitis, tricuspid regurgitation, multiple sclerosis, DVT bilateral legs with GFF, neuropathy bilateral legs/feet, chronic back pain, DDD, migraines, bilateral carpal tunnel syndrome, past L/R rib fractures, past L hip fracture with surgery, PUD with ulcer rupture with surgery, peritonitis, pancreatitis, IBS/ ulcerative colitis, chronic anemia, UTIs, urinary incontinence, endometriosis, hypothyroid, R cataract and L eye cataract forming again, PVD, L leg cellulitis, Last Myocardial Infarction Date:: 2012 History of Any Multi-Drug Resistant Organisms: ESBL Date of last positivie culture/infection: 02/18/2014 MDRO Source:: Blood and Urine E. coli ESBL Past Surgical History: AICD, Appendectomy, Heart Catheterization, Heart Catheterization With Stent, Orthopedic Surgery, Pacemaker Additional Past Surgical History / Comment(s): Cardioversion, green field filter, laparotomy for ruptured gastric ulcer, R foot fracture with surgery, L hip fracture with surgery-has plate and screw, EGD, colonoscopies with benign polypectomy. Past Anesthesia/Blood Transfusion Reactions: No Reported Reaction Additional Past Anesthesia/Blood Transfusion Reaction / Comment(s): Pt has received blood in past without reaction. Date of Last Stent Placement:: 11/2012 Type of Cardiac Device: Permanent Pacemaker, AICD Device Placement Date:: 2012 Past Psychological History: Anxiety, Bipolar, Depression, Panic Disorder Smoking Status: Former smoker Past Alcohol Use History: None Reported Past Drug Use History: Marijuana - Past Family History Mother Family Medical History: Musculoskeletal Disorder Additional Family Medical History / Comment(s): MS Sister(s) Family Medical History: Myocardial Infarction (IL) Additional Family Medical History / Comment(s): SISTER ALSO HAS MS Brother(s) Family Medical History: Musculoskeletal Disorder, Neurologic Disorder Additional Family Medical History / Comment(s): MS Father Additional Family Medical History / Comment(s): ETOH abuse, back surgery Medications and Allergies Home Medications Medication Instructions Recorded Confirmed Type Folic Acid 1 mg PO DAILY 04/08/14 10/07/19 History Thiamine [Vitamin B-1] 100 mg PO DAILY 04/13/15 10/07/19 History Cholecalciferol (Vitamin D3) 2,000 unit PO DAILY 09/27/18 10/07/19 History [Vitamin D3] Ferrous Sulfate [Iron (65 MG 325 mg PO BID 09/27/18 10/07/19 History Elemental)] Levothyroxine Sodium [Synthroid] 100 mcg PO DAILY 09/27/18 10/07/19 History Atorvastatin [Lipitor] 40 mg PO DAILY #30 tab 09/28/18 10/07/19 Rx Isosorbide Mononitrate ER [Imdur] 30 mg PO DAILY 02/06/19 10/07/19 History Albuterol Sulfate [Proair Hfa] 2 puff INHALATION RT-QID PRN 03/16/19 10/07/19 History Omeprazole 40 mg PO BID 03/16/19 10/07/19 History Gabapentin [Neurontin] 300 mg PO TID #9 cap 04/02/19 10/07/19 Rx Baclofen [Lioresal] 20 mg PO TID PRN 08/07/19 10/07/19 History Cyanocobalamin [Vitamin B-12] 1,000 mcg PO DAILY #30 tab 08/11/19 10/07/19 Rx Albuterol Nebulized [Ventolin 2.5 mg INHALATION RT-QID PRN 09/06/19 10/07/19 History Nebulized] Amiodarone HCl [Pacerone] 100 mg PO DAILY 09/06/19 10/07/19 History Ipratropium-Albuterol Nebulize 3 ml INHALATION RT-Q4H 09/06/19 10/07/19 History [Duoneb 0.5 mg-3 mg/3 ml Soln] oxyCODONE-APAP 5-325MG [Percocet 1 tab PO Q8H PRN 09/06/19 10/07/19 History 5-325 mg] ARIPiprazole [Abilify] 10 mg PO DAILY 09/07/19 10/07/19 History Citalopram Hydrobromide [CeleXA] 20 mg PO DAILY 09/07/19 10/07/19 History Fexofenadine HCl [Genet Allergy] 180 mg PO DAILY 09/15/19 10/07/19 History Haloperidol Oral Soln [Haldol Oral 1 mg PO Q6H PRN 10/07/19 10/07/19 History Soln] LORazepam [Ativan] 0.5 mg PO Q4H PRN 10/07/19 10/07/19 History MORPHINE ORAL CK CONC 20mg/mL 5 mg PO Q4H PRN 10/07/19 10/07/19 History [Roxanol Oral Soln Conc 20MG/ML] Allergies Allergy/AdvReac Type Severity Reaction Status Date / Time Penicillins Allergy Swelling/facial Verified 10/07/19 08:47 numbness Physical Exam Vitals: Vital Signs Temp Pulse Pulse Resp BP BP Pulse Ox 10/07/19 12:41 76 10/07/19 12:35 75 10/07/19 12:00 97.5 F L 76 14 103/56 97 10/07/19 11:00 80 14 100/71 100 10/07/19 10:01 97.8 F 75 14 100/71 98 10/07/19 10:00 77 12 104/65 97 10/07/19 09:30 76 10/07/19 09:21 73 10/07/19 09:00 66 12 111/65 100 10/07/19 08:11 97.8 F 74 14 111/65 99 10/07/19 08:00 97.8 F 72 14 105/68 99 10/07/19 07:53 98.1 F 73 12 105/68 100 10/07/19 07:10 74 12 91/54 100 10/07/19 07:00 98.3 F 73 11 L 81/54 100 10/07/19 06:50 73 13 87/59 100 10/07/19 06:40 76 13 87/59 100 10/07/19 06:39 98.1 F 75 12 81/54 100 10/07/19 06:30 75 14 87/59 100 10/07/19 06:20 75 11 L 87/59 100 10/07/19 06:10 77 8 L 87/59 97 10/07/19 06:00 98.1 F 79 8 L 99/72 99 10/07/19 05:54 77 10/07/19 05:50 73 12 99/72 100 10/07/19 05:41 77 10/07/19 05:40 72 24 99/72 98 10/07/19 05:30 77 14 99/72 100 10/07/19 05:20 79 61 H 99/72 100 10/07/19 05:10 84 6 L 99/72 99 10/07/19 05:00 73 12 104/53 100 10/07/19 04:50 73 18 104/53 100 10/07/19 04:40 78 14 104/53 10/07/19 04:30 80 9 L 104/53 86 L 10/07/19 04:20 80 13 104/53 100 10/07/19 04:10 80 19 104/53 88 L 10/07/19 04:00 76 18 95/66 99 10/07/19 03:50 80 20 95/66 100 10/07/19 03:40 84 25 H 95/66 95 10/07/19 03:30 81 16 95/66 99 10/07/19 03:23 98.4 F 80 22 95/66 93 L 10/07/19 03:20 83 8 L 95/49 98 10/07/19 03:10 81 20 95/49 99 10/07/19 03:00 77 75 24 94/48 100 10/07/19 02:53 98.2 F 80 13 95/49 99 10/07/19 02:50 85 10 L 94/48 10/07/19 02:43 98 F 81 31 H 94/48 97 10/07/19 02:40 82 10 L 94/48 93 L 10/07/19 02:30 98.0 F 81 13 94/48 97 10/07/19 02:28 97 10/07/19 02:24 20 95/49 100 10/07/19 02:20 79 11 L 91/44 10/07/19 02:10 85 23 91/44 10/07/19 02:00 84 21 10/07/19 01:50 85 6 L 80/36 10/07/19 01:40 82 0 L 80/36 94 L 10/07/19 01:30 82 13 80/36 93 L 10/07/19 01:20 81 18 79/47 94 L 10/07/19 01:10 79/47 10/07/19 01:00 79/47 97 10/07/19 00:50 79/47 75 L 10/07/19 00:40 79/47 97 10/07/19 00:30 79/47 10/07/19 00:20 79/47 10/07/19 00:18 100 18 79/47 98 10/07/19 00:10 79/47 10/07/19 00:00 82/41 10/06/19 23:50 82/41 10/06/19 23:40 82/41 10/06/19 23:30 82/41 10/06/19 23:20 82/41 10/06/19 23:10 92/37 10/06/19 23:00 92/37 87 L 10/06/19 22:50 92/37 10/06/19 22:40 92/37 10/06/19 22:30 92/37 10/06/19 22:20 92/37 10/06/19 22:17 92/37 100 10/06/19 22:12 98.3 F 84 18 92/37 100 Intake and Output 10/06/19 10/07/19 10/07/19 22:59 06:59 14:59 Intake Total 930 420 Output Total 76 110 Balance 854 310 Intake: IV 110 .9 KVO 60 ceFAZolin 1,000 mg In 50 Sodium Chloride 0.9% 50 ml @ 100 mls/hr IVPB Q8HR SID Rx#:[id number] Blood Product 930 310 Rc As-1 Unit 310 [id number] Rc As-1 Unit 0 310 [id number] Output: Urine 76 110 Other: Voiding Method Indwelling Catheter Indwelling Catheter Weight 57.606 kg 57.606 kg 57.606 kg GENERAL EXAM: Revealed 64-year-old white female, in no distress. HEAD: Normocephalic/atraumatic. HEENT: PERRLA, EOMI, no icterus. Dry mucous membranes. CHEST: No chest wall deformity. Symmetrical expansion. LUNGS: Crackles at the bases no rhonchi and no wheezes. CVS: Normal S1 and S2, no S3 gallop. ABDOMEN: Soft, nontender. No hepatosplenomegaly, normal bowel sounds, no guarding or rigidity. EXTREMITIES: 2+ bipedal edema in both lower extremities, with faint erythema of both lower extremities, no tenderness. Good pulses bilaterally. MUSCULOSKELETAL: Muscle strength and tone normal. SPINE: No scoliosis or deformity SKIN: Redness and swelling of both lower extremities. CENTRAL NERVOUS SYSTEM: Alert and oriented 3 focal deficits be PSYCHIATRIC: Normal mood, blunt affect, normal mental status examination. Results - Laboratory Findings CBC and BMP: 10/06/19 23:58 10/06/19 23:58 PT/INR, D-dimer PT 11.1 sec (9.0-12.0) 10/06/19 23:58 INR 1.1 (<1.2) 10/06/19 23:58 D-Dimer 1.49 mg/L FEU (<0.60) H 10/06/19 23:58 Abnormal lab findings: Abnormal Labs 10/06/19 10/06/19 10/06/19 23:29 23:58 23:58 RBC 1.65 L Hgb 5.1 L* D Hct 16.8 L* MCV 101.7 H MCHC 30.5 L RDW 16.0 H APTT 18.1 L D-Dimer 1.49 H Sodium Chloride BUN Glucose POC Glucose (mg/dL) Plasma Lactic Acid Zaki Calcium Total Protein Albumin Ur Leukocyte Esterase Urine WBC Urine Bacteria Urine Mucus Stool Occult Blood Positive H Crossmatch 10/06/19 10/06/19 10/07/19 23:58 23:58 00:31 RBC Hgb Hct MCV MCHC RDW APTT D-Dimer Sodium 129 L Chloride 96 L BUN 19 H Glucose 109 H POC Glucose (mg/dL) Plasma Lactic Acid Zaki 2.3 H* Calcium 7.8 L Total Protein 4.5 L Albumin 2.2 L Ur Leukocyte Esterase Urine WBC Urine Bacteria Urine Mucus Stool Occult Blood Crossmatch See Detail 10/07/19 10/07/19 02:01 06:45 RBC Hgb Hct MCV MCHC RDW APTT D-Dimer Sodium Chloride BUN Glucose POC Glucose (mg/dL) 125 H Plasma Lactic Acid Zaki Calcium Total Protein Albumin Ur Leukocyte Esterase Small H Urine WBC 8 H Urine Bacteria Many H Urine Mucus Rare H Stool Occult Blood Crossmatch - Diagnostic Findings Chest x-ray: image reviewed (Suspected COPD otherwise unremarkable.) Assessment and Plan Assessment: Acute upper GI bleeding, possible GI malignancy, previous EGD and biopsy of gastric mass was nondiagnostic. Known history of coronary artery disease and previous coronary intervention and stenting Known history of gastric mass Acute on chronic anemia secondary to GI blood losses Bipedal edema and erythema of lower extremities, hence I recommended ultrasound and starting the patient on Kefzol. Chronic systolic congestive heart failure secondary to LV dysfunction. History of multiple sclerosis History of peripheral neuropathy History of ventricular tachycardia and cardiac arrest History of peripheral vessel occlusive disease History of benign essential hypertension. History of fibromyalgia History of degenerative joint disease History of peripheral neuropathy History of ESBL infection History of anxiety and bipolar disorder History of AICD placement History of ulcerative colitis and irritable bowel syndrome Recommendation: Transfuse patient to a hemoglobin of above 7. GI to evaluate the patient and consider EGD again. Or may recommend transfer the patient to a tertiary care center as recommended on the last admission. Patient to have ultrasound of lower extremities and in the meantime we'll start Kefzol. If the patient has DVT, then she will need a Colton filter placement. Continue Protonix. Continue to monitor in the ICU. Continue bronchodilators for underlying COPD. Resume home meds. Continue oxygen as needed. We'll continue to follow, prognosis is extremely poor and guarded. Time with Patient: Greater than 30
[2019-10-07] MEDS ORDERED: MORPHINE ORAL SOLN 10 MG/5 ML CUP PO PRN (13:03)
[2019-10-07] MEDS ORDERED: LORazepam 0.5 MG TAB PO PRN (13:03)
[2019-10-07] MEDS ORDERED: ALBUTEROL NEBULIZED 2.5 MG/3 ML INHALATION PRN (13:03)
[2019-10-07] MEDS ORDERED: BACLOFEN 10 MG TAB PO PRN (13:03)
[2019-10-07] MEDS: oxyCODONE-APAP 5-325MG 1 EACH TAB PO PRN (13:39)
[2019-10-07] MEDS: LEVOTHYROXINE 100 MCG TAB PO SCH (14:44)
[2019-10-07] MEDS: CYANOCOBALAMIN 500 MCG TAB PO SCH (14:45)
[2019-10-07] MEDS: FOLIC ACID 1 MG TAB PO SCH (14:45)
[2019-10-07] MEDS: CHOLECALCIFEROL 1,000 UNIT TAB PO SCH (14:45)
[2019-10-07] MEDS: LORATADINE 10 MG TAB PO SCH (14:45)
[2019-10-07] MEDS: ATORVASTATIN 40 MG TAB PO SCH (14:46)
[2019-10-07] MEDS: CITALOPRAM HYDROBROMIDE 20 MG TAB PO SCH (14:47)
[2019-10-07] MEDS: ISOSORBIDE MONONITRATE ER 30 MG TAB.ER.24H PO SCH (14:48)
[2019-10-07] MEDS: ARIPiprazole 10 MG TAB PO SCH (14:50)
[2019-10-07] MEDS: AMIODARONE 100 MG TAB PO SCH (14:50)
--- NOTE | 2019-10-07 15:16 | US ---
EXAMINATION TYPE: US venous doppler duplex LE BI DATE OF EXAM: 10/07/2019 2:44 PM COMPARISON: US 08/08/2019 CLINICAL HISTORY: 64-year-old female Swelling . History of DVT. ICU patient. 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 FINDINGS: VESSELS IMAGED: External Iliac Vein (EIV) Common Femoral Vein Deep Femoral Vein Greater Saphenous Vein * Femoral Vein Popliteal Vein Small Saphenous Vein * Proximal Calf Veins (* superficial vessels) Right Leg: Positive for DVT right upper femoral vein to lower femoral vein. Possible thready flow vi sualized right popliteal vein Left Leg: Positive for DVT left EIV to lower femoral vein. Unable to visualize popliteal veins due t o edema IMPRESSION: 1. Exam again positive for DVT within the right lower extremity with clot extending from the upper to lower femoral vein. Some additional incompletely occlusive DVT in the popliteal vein. 2. Exam again positive for DVT within the left lower extremity leg DVT extending from the external il iac vein into the lower femoral vein. Unable to visualize the left popliteal vein due to the degree o f soft tissue edema.
--- NOTE | 2019-10-07 15:36 | P.GSCN ---
History of Present Illness Consult date: 10/07/19 Reason for Consult: Anemia History of present illness: Is a 64-year-old female who is admitted to the ICU with anemia. Patient's known to have a gastric mass. Patient bleeding from the gastric mass. Patient was really scope by Dr. Solis approximately 2 weeks ago. Patient has had persistent bleeding. She is also known to have DVT and lower extremities. Past Medical History Past Medical History: Coronary Artery Disease (CAD), Chest Pain / Angina, Heart Failure, COPD, Deep Vein Thrombosis (DVT), Eye Disorder, Fibromyalgia, GERD/Reflux, GI Bleed, Hyperlipidemia, Hypertension, Myocardial Infarction ([place]), Musculoskeletal Disorder, Neurologic Disorder, Osteoarthritis (OA), Pneumonia, Respiratory Disorder, Skin Disorder, Thyroid Disorder, Vascular Disorder Additional Past Medical History / Comment(s): Pt recently admitted to [facility] on 09/15/19 with acute on chronic FI bleed with known gastric ulcer and acute blood loss anemia, one gallstone. Other hx: 11/2012 [place] with cardiac arrest/vtach, AICD d/t cardiomyopathy/ Vtach, chronic respiratory failure-uses home O2 prn 2L/NC, tracheobronchitis, tricuspid regurgitation, multiple sclerosis, DVT bilateral legs with GFF, neuropathy bilateral legs/feet, chronic back pain, DDD, migraines, bilateral carpal tunnel syndrome, past L/R rib fractures, past L hip fracture with surgery, PUD with ulcer rupture with surgery, peritonitis, pancreatitis, IBS/ ulcerative colitis, chronic anemia, UTIs, urinary incontinence, endometriosis, hypothyroid, R cataract and L eye cataract forming again, PVD, L leg cellulitis, Last Myocardial Infarction Date:: 2012 History of Any Multi-Drug Resistant Organisms: ESBL Year Discovered:: 02/18/2014 MDRO Source:: Blood and Urine E. coli ESBL Past Surgical History: AICD, Appendectomy, Heart Catheterization, Heart Catheterization With Stent, Orthopedic Surgery, Pacemaker Additional Past Surgical History / Comment(s): Cardioversion, green field filter, laparotomy for ruptured gastric ulcer, R foot fracture with surgery, L hip fracture with surgery-has plate and screw, EGD, colonoscopies with benign polypectomy. Past Anesthesia/Blood Transfusion Reactions: No Reported Reaction Additional Past Anesthesia/Blood Transfusion Reaction / Comm: Pt has received blood in past without reaction. Date of Last Stent Placement:: 11/2012 Type of Cardiac Device: Permanent Pacemaker, AICD Device Placement Date:: 2012 Past Psychological History: Anxiety, Bipolar, Depression, Panic Disorder Smoking Status: Former smoker Past Alcohol Use History: None Reported Past Drug Use History: Marijuana - Past Family History Mother Family Medical History: Musculoskeletal Disorder Additional Family Medical History / Comment(s): MS Sister(s) Family Medical History: Myocardial Infarction ([place]) Additional Family Medical History / Comment(s): SISTER ALSO HAS MS Brother(s) Family Medical History: Musculoskeletal Disorder, Neurologic Disorder Additional Family Medical History / Comment(s): MS Father Additional Family Medical History / Comment(s): ETOH abuse, back surgery Medications and Allergies Home Medications Medication Instructions Recorded Confirmed Type Folic Acid 1 mg PO DAILY 04/08/14 10/07/19 History Thiamine [Vitamin B-1] 100 mg PO DAILY 04/13/15 10/07/19 History Cholecalciferol (Vitamin D3) 2,000 unit PO DAILY 09/27/18 10/07/19 History [Vitamin D3] Ferrous Sulfate [Iron (65 MG 325 mg PO BID 09/27/18 10/07/19 History Elemental)] Levothyroxine Sodium [Synthroid] 100 mcg PO DAILY 09/27/18 10/07/19 History Atorvastatin [Lipitor] 40 mg PO DAILY #30 tab 09/28/18 10/07/19 Rx Isosorbide Mononitrate ER [Imdur] 30 mg PO DAILY 02/06/19 10/07/19 History Albuterol Sulfate [Proair Hfa] 2 puff INHALATION RT-QID PRN 03/16/19 10/07/19 History Omeprazole 40 mg PO BID 03/16/19 10/07/19 History Gabapentin [Neurontin] 300 mg PO TID #9 cap 04/02/19 10/07/19 Rx Baclofen [Lioresal] 20 mg PO TID PRN 08/07/19 10/07/19 History Cyanocobalamin [Vitamin B-12] 1,000 mcg PO DAILY #30 tab 08/11/19 10/07/19 Rx Albuterol Nebulized [Ventolin 2.5 mg INHALATION RT-QID PRN 09/06/19 10/07/19 History Nebulized] Amiodarone HCl [Pacerone] 100 mg PO DAILY 09/06/19 10/07/19 History Ipratropium-Albuterol Nebulize 3 ml INHALATION RT-Q4H 09/06/19 10/07/19 History [Duoneb 0.5 mg-3 mg/3 ml Soln] oxyCODONE-APAP 5-325MG [Percocet 1 tab PO Q8H PRN 09/06/19 10/07/19 History 5-325 mg] ARIPiprazole [Abilify] 10 mg PO DAILY 09/07/19 10/07/19 History Citalopram Hydrobromide [CeleXA] 20 mg PO DAILY 09/07/19 10/07/19 History Fexofenadine HCl [Genet Allergy] 180 mg PO DAILY 09/15/19 10/07/19 History Haloperidol Oral Soln [Haldol Oral 1 mg PO Q6H PRN 10/07/19 10/07/19 History Soln] LORazepam [Ativan] 0.5 mg PO Q4H PRN 10/07/19 10/07/19 History MORPHINE ORAL CK CONC 20mg/mL 5 mg PO Q4H PRN 10/07/19 10/07/19 History [Roxanol Oral Soln Conc 20MG/ML] Allergies Allergy/AdvReac Type Severity Reaction Status Date / Time Penicillins Allergy Swelling/facial Verified 10/07/19 08:47 numbness Surgical - Exam Vital Signs Temp Pulse Resp BP Pulse Ox 98.3 F 84 18 92/37 100 10/06/19 22:12 10/06/19 22:12 10/06/19 22:12 10/06/19 22:12 10/06/19 22:12 - General well developed, well nourished, no distress - Eyes PERRL - ENT normal pinna - Neck no masses - Respiratory normal expansion - Cardiovascular Rhythm: regular - Abdomen Abdomen: soft, non tender Results - Labs 10/06/19 23:58 10/06/19 23:58 Abnormal Lab Results - Last 24 Hours (Table) 10/06/19 10/06/19 10/06/19 Range/Units 23:29 23:58 23:58 RBC 1.65 L (3.80-5.40) m/uL Hgb 5.1 L* D (11.4-16.0) gm/dL Hct 16.8 L* (34.0-46.0) % MCV 101.7 H (80.0-100.0) fL MCHC 30.5 L (31.0-37.0) g/dL RDW 16.0 H (11.5-15.5) % APTT 18.1 L (22.0-30.0) sec D-Dimer 1.49 H (<0.60) mg/L FEU Sodium (137-145) mmol/L Chloride (98-107) mmol/L BUN (7-17) mg/dL Glucose (74-99) mg/dL POC Glucose (mg/dL) (75-99) mg/dL Plasma Lactic Acid Zaki (0.7-2.0) mmol/L Calcium (8.4-10.2) mg/dL Total Protein (6.3-8.2) g/dL Albumin (3.5-5.0) g/dL Ur Leukocyte Esterase (Negative) Urine WBC (0-5) /hpf Urine Bacteria (None) /hpf Urine Mucus (None) /hpf Stool Occult Blood Positive H (Negative) Crossmatch 10/06/19 10/06/19 10/07/19 Range/Units 23:58 23:58 00:31 RBC (3.80-5.40) m/uL Hgb (11.4-16.0) gm/dL Hct (34.0-46.0) % MCV (80.0-100.0) fL MCHC (31.0-37.0) g/dL RDW (11.5-15.5) % APTT (22.0-30.0) sec D-Dimer (<0.60) mg/L FEU Sodium 129 L (137-145) mmol/L Chloride 96 L (98-107) mmol/L BUN 19 H (7-17) mg/dL Glucose 109 H (74-99) mg/dL POC Glucose (mg/dL) (75-99) mg/dL Plasma Lactic Acid Zaki 2.3 H* (0.7-2.0) mmol/L Calcium 7.8 L (8.4-10.2) mg/dL Total Protein 4.5 L (6.3-8.2) g/dL Albumin 2.2 L (3.5-5.0) g/dL Ur Leukocyte Esterase (Negative) Urine WBC (0-5) /hpf Urine Bacteria (None) /hpf Urine Mucus (None) /hpf Stool Occult Blood (Negative) Crossmatch See Detail 10/07/19 10/07/19 Range/Units 02:01 06:45 RBC (3.80-5.40) m/uL Hgb (11.4-16.0) gm/dL Hct (34.0-46.0) % MCV (80.0-100.0) fL MCHC (31.0-37.0) g/dL RDW (11.5-15.5) % APTT (22.0-30.0) sec D-Dimer (<0.60) mg/L FEU Sodium (137-145) mmol/L Chloride (98-107) mmol/L BUN (7-17) mg/dL Glucose (74-99) mg/dL POC Glucose (mg/dL) 125 H (75-99) mg/dL Plasma Lactic Acid Zaki (0.7-2.0) mmol/L Calcium (8.4-10.2) mg/dL Total Protein (6.3-8.2) g/dL Albumin (3.5-5.0) g/dL Ur Leukocyte Esterase Small H (Negative) Urine WBC 8 H (0-5) /hpf Urine Bacteria Many H (None) /hpf Urine Mucus Rare H (None) /hpf Stool Occult Blood (Negative) Crossmatch Diabetes panel 10/06/19 Range/Units 23:58 Sodium 129 L (137-145) mmol/L Potassium 4.1 (3.5-5.1) mmol/L Chloride 96 L (98-107) mmol/L Carbon Dioxide 27 (22-30) mmol/L BUN 19 H (7-17) mg/dL Creatinine 0.65 (0.52-1.04) mg/dL Glucose 109 H (74-99) mg/dL Calcium 7.8 L (8.4-10.2) mg/dL AST 34 (14-36) U/L ALT 14 (4-34) U/L Alkaline Phosphatase 45 (38-126) U/L Total Protein 4.5 L (6.3-8.2) g/dL Albumin 2.2 L (3.5-5.0) g/dL Calcium panel 10/06/19 Range/Units 23:58 Calcium 7.8 L (8.4-10.2) mg/dL Albumin 2.2 L (3.5-5.0) g/dL Pituitary panel 10/06/19 Range/Units 23:58 Sodium 129 L (137-145) mmol/L Potassium 4.1 (3.5-5.1) mmol/L Chloride 96 L (98-107) mmol/L Carbon Dioxide 27 (22-30) mmol/L BUN 19 H (7-17) mg/dL Creatinine 0.65 (0.52-1.04) mg/dL Glucose 109 H (74-99) mg/dL Calcium 7.8 L (8.4-10.2) mg/dL Adrenal panel 10/06/19 Range/Units 23:58 Sodium 129 L (137-145) mmol/L Potassium 4.1 (3.5-5.1) mmol/L Chloride 96 L (98-107) mmol/L Carbon Dioxide 27 (22-30) mmol/L BUN 19 H (7-17) mg/dL Creatinine 0.65 (0.52-1.04) mg/dL Glucose 109 H (74-99) mg/dL Calcium 7.8 L (8.4-10.2) mg/dL Total Bilirubin 0.2 (0.2-1.3) mg/dL AST 34 (14-36) U/L ALT 14 (4-34) U/L Alkaline Phosphatase 45 (38-126) U/L Total Protein 4.5 L (6.3-8.2) g/dL Albumin 2.2 L (3.5-5.0) g/dL Assessment and Plan Assessment: Bleeding gastric mass. Patient will receive a [place] filter. We will plan for partial gastrectomy once she is stable.
[2019-10-07] MEDS ORDERED: IPRATROPIUM-ALBUTEROL 3 ML NEB INHALATION SCH (16:00)
[2019-10-07] MEDS: PANTOPRAZOLE 40 MG TABLET PO SCH (16:22)
[2019-10-07] MEDS: GABAPENTIN 300 MG CAP PO SCH ×2 (16:22→22:12)
[2019-10-07 16:54] LABS: Anisocytosis Slight; Basophils % (A) 0 %; Eosinophils # (A) 0.1 k/uL (0-0.7); Eosinophils % (A) 2 %; HCT 24.3 % (34.0-46.0); Hypochromasia Marked; Lymphocytes # (A) 1.4 k/uL (1.0-4.8); Lymphocytes % (A) 18 %; MCH 28.3 pg (25.0-35.0); MCHC 31.1 g/dL (31.0-37.0); Mean Platelet Volume 8.6; Monocytes # (A) 0.4 k/uL (0-1.0); Monocytes % (A) 6 %; Neutrophils # (A) 5.9 k/uL (1.3-7.7); Neutrophils % (A) 74 %; Platelet Count 131 k/uL (150-450); Poikilocytosis Moderate; RBC 2.66 m/uL (3.80-5.40); RDW 19.5 % (11.5-15.5)
[2019-10-07 16:59] LABS: HGB 7.5 gm/dL (11.4-16.0); MCV 91.2 fL (80.0-100.0)
[2019-10-07 17:08] LABS: Glucose,Whole Blood 89 mg/dL (75-99)
--- NOTE | 2019-10-07 17:51 | P.GSCN ---
History of Present Illness History of present illness: 64-year-old white female, patient has been diagnosed with gastric mass and patient scheduled to have this gastrectomy tomorrow by Dr. Mayers a patient has history of GI bleed with low hemoglobin patient received 2 L of blood transfusion today. Patient has history of DVT bilateral I was consulted for placement of the filter Neck examination neck is supple no bruit appreciated Chest pulses second sound present. Few crackles the lung bases Abdomen soft soft nontender Femorals are palpable bilateral Plan is placement of the filter risk interpretation bleeding infection thrombosis has been discussed Past Medical History Past Medical History: Coronary Artery Disease (CAD), Chest Pain / Angina, Heart Failure, COPD, Deep Vein Thrombosis (DVT), Eye Disorder, Fibromyalgia, GERD/Reflux, GI Bleed, Hyperlipidemia, Hypertension, Myocardial Infarction ([place]), Musculoskeletal Disorder, Neurologic Disorder, Osteoarthritis (OA), Pneumonia, Respiratory Disorder, Skin Disorder, Thyroid Disorder, Vascular Disorder Additional Past Medical History / Comment(s): Pt recently admitted to [facility] on 09/15/19 with acute on chronic FI bleed with known gastric ulcer and acute blood loss anemia, one gallstone. Other hx: 11/2012 [place] with cardiac arrest/vtach, AICD d/t cardiomyopathy/ Vtach, chronic respiratory failure-uses home O2 prn 2L/NC, tracheobronchitis, tricuspid regurgitation, multiple sclerosis, DVT bilateral legs with GFF, neuropathy bilateral legs/feet, chronic back pain, DDD, migraines, bilateral carpal tunnel syndrome, past L/R rib fractures, past L hip fracture with surgery, PUD with ulcer rupture with surgery, peritonitis, pancreatitis, IBS/ ulcerative colitis, chronic anemia, UTIs, urinary incontinence, endometriosis, hypothyroid, R cataract and L eye cataract forming again, PVD, L leg cellulitis, Last Myocardial Infarction Date:: 2012 History of Any Multi-Drug Resistant Organisms: ESBL Year Discovered:: 02/18/2014 MDRO Source:: Blood and Urine E. coli ESBL Past Surgical History: AICD, Appendectomy, Heart Catheterization, Heart Catheterization With Stent, Orthopedic Surgery, Pacemaker Additional Past Surgical History / Comment(s): Cardioversion, green field filter, laparotomy for ruptured gastric ulcer, R foot fracture with surgery, L hip fracture with surgery-has plate and screw, EGD, colonoscopies with benign polypectomy. Past Anesthesia/Blood Transfusion Reactions: No Reported Reaction Additional Past Anesthesia/Blood Transfusion Reaction / Comm: Pt has received blood in past without reaction. Date of Last Stent Placement:: 11/2012 Type of Cardiac Device: Permanent Pacemaker, AICD Device Placement Date:: 2012 Past Psychological History: Anxiety, Bipolar, Depression, Panic Disorder Smoking Status: Former smoker Past Alcohol Use History: None Reported Past Drug Use History: Marijuana - Past Family History Mother Family Medical History: Musculoskeletal Disorder Additional Family Medical History / Comment(s): MS Sister(s) Family Medical History: Myocardial Infarction ([place]) Additional Family Medical History / Comment(s): SISTER ALSO HAS MS Brother(s) Family Medical History: Musculoskeletal Disorder, Neurologic Disorder Additional Family Medical History / Comment(s): MS Father Additional Family Medical History / Comment(s): ETOH abuse, back surgery Medications and Allergies Home Medications Medication Instructions Recorded Confirmed Type Folic Acid 1 mg PO DAILY 04/08/14 10/07/19 History Thiamine [Vitamin B-1] 100 mg PO DAILY 04/13/15 10/07/19 History Cholecalciferol (Vitamin D3) 2,000 unit PO DAILY 09/27/18 10/07/19 History [Vitamin D3] Ferrous Sulfate [Iron (65 MG 325 mg PO BID 09/27/18 10/07/19 History Elemental)] Levothyroxine Sodium [Synthroid] 100 mcg PO DAILY 09/27/18 10/07/19 History Atorvastatin [Lipitor] 40 mg PO DAILY #30 tab 09/28/18 10/07/19 Rx Isosorbide Mononitrate ER [Imdur] 30 mg PO DAILY 02/06/19 10/07/19 History Albuterol Sulfate [Proair Hfa] 2 puff INHALATION RT-QID PRN 03/16/19 10/07/19 History Omeprazole 40 mg PO BID 03/16/19 10/07/19 History Gabapentin [Neurontin] 300 mg PO TID #9 cap 04/02/19 10/07/19 Rx Baclofen [Lioresal] 20 mg PO TID PRN 08/07/19 10/07/19 History Cyanocobalamin [Vitamin B-12] 1,000 mcg PO DAILY #30 tab 08/11/19 10/07/19 Rx Albuterol Nebulized [Ventolin 2.5 mg INHALATION RT-QID PRN 09/06/19 10/07/19 History Nebulized] Amiodarone HCl [Pacerone] 100 mg PO DAILY 09/06/19 10/07/19 History Ipratropium-Albuterol Nebulize 3 ml INHALATION RT-Q4H 09/06/19 10/07/19 History [Duoneb 0.5 mg-3 mg/3 ml Soln] oxyCODONE-APAP 5-325MG [Percocet 1 tab PO Q8H PRN 09/06/19 10/07/19 History 5-325 mg] ARIPiprazole [Abilify] 10 mg PO DAILY 09/07/19 10/07/19 History Citalopram Hydrobromide [CeleXA] 20 mg PO DAILY 09/07/19 10/07/19 History Fexofenadine HCl [Genet Allergy] 180 mg PO DAILY 09/15/19 10/07/19 History Haloperidol Oral Soln [Haldol Oral 1 mg PO Q6H PRN 10/07/19 10/07/19 History Soln] LORazepam [Ativan] 0.5 mg PO Q4H PRN 10/07/19 10/07/19 History MORPHINE ORAL CK CONC 20mg/mL 5 mg PO Q4H PRN 10/07/19 10/07/19 History [Roxanol Oral Soln Conc 20MG/ML] Allergies Allergy/AdvReac Type Severity Reaction Status Date / Time Penicillins Allergy Swelling/facial Verified 10/07/19 08:47 numbness Surgical - Exam Vital Signs Temp Pulse Resp BP Pulse Ox 98.3 F 84 18 92/37 100 10/06/19 22:12 10/06/19 22:12 10/06/19 22:12 10/06/19 22:12 10/06/19 22:12 Results - Labs 10/07/19 16:46 10/06/19 23:58 Abnormal Lab Results - Last 24 Hours (Table) 10/06/19 10/06/19 10/06/19 Range/Units 23:29 23:58 23:58 RBC 1.65 L (3.80-5.40) m/uL Hgb 5.1 L* D (11.4-16.0) gm/dL Hct 16.8 L* (34.0-46.0) % MCV 101.7 H (80.0-100.0) fL MCHC 30.5 L (31.0-37.0) g/dL RDW 16.0 H (11.5-15.5) % Plt Count (150-450) k/uL APTT 18.1 L (22.0-30.0) sec D-Dimer 1.49 H (<0.60) mg/L FEU Sodium (137-145) mmol/L Chloride (98-107) mmol/L BUN (7-17) mg/dL Glucose (74-99) mg/dL POC Glucose (mg/dL) (75-99) mg/dL Plasma Lactic Acid Zaki (0.7-2.0) mmol/L Calcium (8.4-10.2) mg/dL Total Protein (6.3-8.2) g/dL Albumin (3.5-5.0) g/dL Ur Leukocyte Esterase (Negative) Urine WBC (0-5) /hpf Urine Bacteria (None) /hpf Urine Mucus (None) /hpf Stool Occult Blood Positive H (Negative) Crossmatch 10/06/19 10/06/19 10/07/19 Range/Units 23:58 23:58 00:31 RBC (3.80-5.40) m/uL Hgb (11.4-16.0) gm/dL Hct (34.0-46.0) % MCV (80.0-100.0) fL MCHC (31.0-37.0) g/dL RDW (11.5-15.5) % Plt Count (150-450) k/uL APTT (22.0-30.0) sec D-Dimer (<0.60) mg/L FEU Sodium 129 L (137-145) mmol/L Chloride 96 L (98-107) mmol/L BUN 19 H (7-17) mg/dL Glucose 109 H (74-99) mg/dL POC Glucose (mg/dL) (75-99) mg/dL Plasma Lactic Acid Zaki 2.3 H* (0.7-2.0) mmol/L Calcium 7.8 L (8.4-10.2) mg/dL Total Protein 4.5 L (6.3-8.2) g/dL Albumin 2.2 L (3.5-5.0) g/dL Ur Leukocyte Esterase (Negative) Urine WBC (0-5) /hpf Urine Bacteria (None) /hpf Urine Mucus (None) /hpf Stool Occult Blood (Negative) Crossmatch See Detail 10/07/19 10/07/19 10/07/19 Range/Units 02:01 06:45 16:46 RBC 2.66 L (3.80-5.40) m/uL Hgb 7.5 L D (11.4-16.0) gm/dL Hct 24.3 L (34.0-46.0) % MCV (80.0-100.0) fL MCHC (31.0-37.0) g/dL RDW 19.5 H (11.5-15.5) % Plt Count 131 L (150-450) k/uL APTT (22.0-30.0) sec D-Dimer (<0.60) mg/L FEU Sodium (137-145) mmol/L Chloride (98-107) mmol/L BUN (7-17) mg/dL Glucose (74-99) mg/dL POC Glucose (mg/dL) 125 H (75-99) mg/dL Plasma Lactic Acid Zaki (0.7-2.0) mmol/L Calcium (8.4-10.2) mg/dL Total Protein (6.3-8.2) g/dL Albumin (3.5-5.0) g/dL Ur Leukocyte Esterase Small H (Negative) Urine WBC 8 H (0-5) /hpf Urine Bacteria Many H (None) /hpf Urine Mucus Rare H (None) /hpf Stool Occult Blood (Negative) Crossmatch Diabetes panel 10/06/19 Range/Units 23:58 Sodium 129 L (137-145) mmol/L Potassium 4.1 (3.5-5.1) mmol/L Chloride 96 L (98-107) mmol/L Carbon Dioxide 27 (22-30) mmol/L BUN 19 H (7-17) mg/dL Creatinine 0.65 (0.52-1.04) mg/dL Glucose 109 H (74-99) mg/dL Calcium 7.8 L (8.4-10.2) mg/dL AST 34 (14-36) U/L ALT 14 (4-34) U/L Alkaline Phosphatase 45 (38-126) U/L Total Protein 4.5 L (6.3-8.2) g/dL Albumin 2.2 L (3.5-5.0) g/dL Calcium panel 10/06/19 Range/Units 23:58 Calcium 7.8 L (8.4-10.2) mg/dL Albumin 2.2 L (3.5-5.0) g/dL Pituitary panel 10/06/19 Range/Units 23:58 Sodium 129 L (137-145) mmol/L Potassium 4.1 (3.5-5.1) mmol/L Chloride 96 L (98-107) mmol/L Carbon Dioxide 27 (22-30) mmol/L BUN 19 H (7-17) mg/dL Creatinine 0.65 (0.52-1.04) mg/dL Glucose 109 H (74-99) mg/dL Calcium 7.8 L (8.4-10.2) mg/dL Adrenal panel 10/06/19 Range/Units 23:58 Sodium 129 L (137-145) mmol/L Potassium 4.1 (3.5-5.1) mmol/L Chloride 96 L (98-107) mmol/L Carbon Dioxide 27 (22-30) mmol/L BUN 19 H (7-17) mg/dL Creatinine 0.65 (0.52-1.04) mg/dL Glucose 109 H (74-99) mg/dL Calcium 7.8 L (8.4-10.2) mg/dL Total Bilirubin 0.2 (0.2-1.3) mg/dL AST 34 (14-36) U/L ALT 14 (4-34) U/L Alkaline Phosphatase 45 (38-126) U/L Total Protein 4.5 L (6.3-8.2) g/dL Albumin 2.2 L (3.5-5.0) g/dL
--- NOTE | 2019-10-07 19:01 | P.HPIM ---
History of Present Illness H&P Date: 10/07/19 Chief Complaint: Shortness of breath history of presenting complaint: This is a 63-year-old patient who follows with visiting physicians Dr. Valle. Normally uses a wheelchair or a walker to get about. Chronic stable medical conditions include, coronary artery disease, COPD in an ex-smoker, chronic fibromyalgia, GERD, hyperlipidemia, essential hypertension, osteoarthritis, hypothyroid, chronic multiple sclerosis, peripheral neuropathy lower extremity, chronic urinary incontinence. Patient also was worked up at [facility] for a gastric greater curvature mass which eventually showed up to be normal smooth muscle cells. Also's chronic intermittent GI bleed from a gastric ulcer. Patient admitted to the hospital on August 06 with a diagnosis of bilateral lower extremity DVT. Could not tolerate IV heparin because of intermittent dark stools for some time. Did require blood transfusion. [place] filter was placed. Patient had repeated admissions for GI bleed. Getting blood transfusions. Continued to refuse endoscopy. Patient was now admitted 2 weeks ago again. On this occasion she agreed to proceed with endoscopy by Dr. Eliza Solis. Biopsy did come back showing gastric mucosa. She also consented for surgery. Patient now presents with shortness of breath. Continues to have dark stools. Hemoglobin came back at 5.1. Admitted to the ICU. Review of systems: GEN.: Tired EYES: None HEENT: Decreased hearing NECK: None RESPIRATORY: As above CARDIOVASCULAR: None GASTROINTESTINAL: Intermittent abdominal pain with dark stools GENITOURINARY: None MUSCULOSKELETAL: joint pain LYMPHATICS: None HEMATOLOGICAL: None PSYCHIATRY: None NEUROLOGICAL: does use a wheelchair or a walker-rest as above Past medical history to include: Coronary artery disease, COPD in an ex-smoker, chronic fibromyalgia, GERD, hyperlipidemia, essential hypertension, osteoarthritis, hypothyroid, chronic multiple sclerosis, peripheral neuropathy lower extremity, chronic urinary incontinence, 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 Social history: lives alone. Has a friend Alvarado who spends most of the day with her. uses walker and/or wheelchair history of alcohol abuse last drink over 20 years ago. Also smoked a pack a day for close to 40 years up until very recently. Physical examination: VITAL SIGNS: 97.5, 76, 14, 103/56, 97% on 2 L GENERAL: Sitting up in bed, awake EYES: Pupils equal. Conjunctiva pale HEENT: External appearance of nose and ears normal, oral cavity grossly normal. Slight puffiness of the right side cheek, with no tenderness-patient has no skin NECK: JVD not raised; masses not palpable. HEART: First and second heart sounds are normal; mild edema. LUNGS: Respiratory rate increased, decreased breath sounds. ABDOMEN: Soft, no tenderness, no guarding or rigidity, liver spleen not palpable, no masses palpable. LYMPHATICS: No lymph nodes palpable in the axilla and neck. PSYCH: Alert and oriented x3; mood and affect normal. INVESTIGATIONS, reviewed in the clinical context: White count 8.7 hemoglobin 5.1 platelets 150 potassium 4.1 creatinine 0.65 lactic acid 2.3 Previous testing: Hemoglobin 8.7 on September 23 Assessment: -Acute on chronic GI bleed in a patient with known gastric pass coming back show ing gastric mucosa per biopsy. -Acute severe blood loss anemia from GI bleed,-symptomatic-ordered 2 units of blood -Chronic lower extremity DVT -with [place] filter on 08/10/2019 -Gastric ulcer disease -Bdyuy-bxlgkajkv-xsjluva mass, workup done at [facility].-biopsy showing smooth muscle mass, also repeat biopsy done here showing the same. -Solitary gallstone, asymptomatic -Coronary artery disease -COPD in an ex-smoker -Chronic fibromyalgia -GERD -Hyperlipidemia -Essential hypertension -Primary osteoarthritis -Hypothyroid -Chronic multiple sclerosis -Peripheral neuropathy both the lower extremity -Chronic urinary incontinence -Chronic gait dysfunction uses a walker/wheelchair -[place] filter placed on August 09 plan: Care was discussed with the patient. Seen by general surgery. Due to go down for surgery tomorrow. Other medications to continue. Repeat CBC-admitted to the ICU. Follow hemodynamically. Past Medical History Past Medical History: Coronary Artery Disease (CAD), Chest Pain / Angina, Heart Failure, COPD, Deep Vein Thrombosis (DVT), Eye Disorder, Fibromyalgia, GERD/Reflux, GI Bleed, Hyperlipidemia, Hypertension, Myocardial Infarction (AR), Musculoskeletal Disorder, Neurologic Disorder, Osteoarthritis (OA), Pneumonia, Respiratory Disorder, Skin Disorder, Thyroid Disorder, Vascular Disorder Additional Past Medical History / Comment(s): Pt recently admitted to [facility] on 09/15/19 with acute on chronic FI bleed with known gastric ulcer and acute blood loss anemia, one gallstone. Other hx: 11/2012 AR with cardiac arrest/vtach, AICD d/t cardiomyopathy/ Vtach, chronic respiratory failure-uses home O2 prn 2L/NC, tracheobronchitis, tricuspid regurgitation, multiple sclerosis, DVT bilateral legs with GFF, neuropathy bilateral legs/feet, chronic back pain, DDD, migraines, bilateral carpal tunnel syndrome, past L/R rib fractures, past L hip fracture with surgery, PUD with ulcer rupture with surgery, peritonitis, pancreatitis, IBS/ ulcerative colitis, chronic anemia, UTIs, urinary incont inence, endometriosis, hypothyroid, R cataract and L eye cataract forming again, PVD, L leg cellulitis, Last Myocardial Infarction Date:: 2012 History of Any Multi-Drug Resistant Organisms: ESBL Date of last positivie culture/infection: 02/18/2014 MDRO Source:: Blood and Urine E. coli ESBL Past Surgical History: AICD, Appendectomy, Heart Catheterization, Heart Catheterization With Stent, Orthopedic Surgery, Pacemaker Additional Past Surgical History / Comment(s): Cardioversion, green [place] filter, laparotomy for ruptured gastric ulcer, R foot fracture with surgery, L hip fracture with surgery-has plate and screw, EGD, colonoscopies with benign polypectomy. Past Anesthesia/Blood Transfusion Reactions: No Reported Reaction Additional Past Anesthesia/Blood Transfusion Reaction / Comment(s): Pt has received blood in past without reaction. Date of Last Stent Placement:: 11/2012 Type of Cardiac Device: Permanent Pacemaker, AICD Device Placement Date:: 2012 Past Psychological History: Anxiety, Bipolar, Depression, Panic Disorder Smoking Status: Former smoker Past Alcohol Use History: None Reported Past Drug Use History: Marijuana - Past Family History Mother Family Medical History: Musculoskeletal Disorder Additional Family Medical History / Comment(s): MS Sister(s) Family Medical History: Myocardial Infarction (AR) Additional Family Medical History / Comment(s): SISTER ALSO HAS MS Brother(s) Family Medical History: Musculoskeletal Disorder, Neurologic Disorder Additional Family Medical History / Comment(s): MS Father Additional Family Medical History / Comment(s): ETOH abuse, back surgery Medications and Allergies Home Medications Medication Instructions Recorded Confirmed Type Folic Acid 1 mg PO DAILY 04/08/14 10/07/19 History Thiamine [Vitamin B-1] 100 mg PO DAILY 04/13/15 10/07/19 History Cholecalciferol (Vitamin D3) 2,000 unit PO DAILY 09/27/18 10/07/19 History [Vitamin D3] Ferrous Sulfate [Iron (65 MG 325 mg PO BID 09/27/18 10/07/19 History Elemental)] Levothyroxine Sodium [Synthroid] 100 mcg PO DAILY 09/27/18 10/07/19 History Atorvastatin [Lipitor] 40 mg PO DAILY #30 tab 09/28/18 10/07/19 Rx Isosorbide Mononitrate ER [Imdur] 30 mg PO DAILY 02/06/19 10/07/19 History Albuterol Sulfate [Proair Hfa] 2 puff INHALATION RT-QID PRN 03/16/19 10/07/19 History Omeprazole 40 mg PO BID 03/16/19 10/07/19 History Gabapentin [Neurontin] 300 mg PO TID #9 cap 04/02/19 10/07/19 Rx Baclofen [Lioresal] 20 mg PO TID PRN 08/07/19 10/07/19 History Cyanocobalamin [Vitamin B-12] 1,000 mcg PO DAILY #30 tab 08/11/19 10/07/19 Rx Albuterol Nebulized [Ventolin 2.5 mg INHALATION RT-QID PRN 09/06/19 10/07/19 History Nebulized] Amiodarone HCl [Pacerone] 100 mg PO DAILY 09/06/19 10/07/19 History Ipratropium-Albuterol Nebulize 3 ml INHALATION RT-Q4H 09/06/19 10/07/19 History [Duoneb 0.5 mg-3 mg/3 ml Soln] oxyCODONE-APAP 5-325MG [Percocet 1 tab PO Q8H PRN 09/06/19 10/07/19 History 5-325 mg] ARIPiprazole [Abilify] 10 mg PO DAILY 09/07/19 10/07/19 History Citalopram Hydrobromide [CeleXA] 20 mg PO DAILY 09/07/19 10/07/19 History Fexofenadine HCl [Genet Allergy] 180 mg PO DAILY 09/15/19 10/07/19 History Haloperidol Oral Soln [Haldol Oral 1 mg PO Q6H PRN 10/07/19 10/07/19 History Soln] LORazepam [Ativan] 0.5 mg PO Q4H PRN 10/07/19 10/07/19 History MORPHINE ORAL CK CONC 20mg/mL 5 mg PO Q4H PRN 10/07/19 10/07/19 History [Roxanol Oral Soln Conc 20MG/ML] Allergies Allergy/AdvReac Type Severity Reaction Status Date / Time Penicillins Allergy Swelling/facial Verified 10/07/19 08:47 numbness Physical Exam Vitals: Vital Signs Temp Pulse Pulse Resp BP BP Pulse Ox 10/07/19 09:21 73 10/07/19 09:00 66 12 111/65 100 10/07/19 08:11 97.8 F 74 14 111/65 99 10/07/19 08:00 97.8 F 72 14 105/68 99 10/07/19 07:53 98.1 F 73 12 105/68 100 10/07/19 07:10 74 12 91/54 100 10/07/19 07:00 98.3 F 73 11 L 81/54 100 10/07/19 06:50 73 13 87/59 100 10/07/19 06:40 76 13 87/59 100 10/07/19 06:39 98.1 F 75 12 81/54 100 10/07/19 06:30 75 14 87/59 100 10/07/19 06:20 75 11 L 87/59 100 10/07/19 06:10 77 8 L 87/59 97 10/07/19 06:00 98.1 F 79 8 L 99/72 99 10/07/19 05:54 77 10/07/19 05:50 73 12 99/72 100 10/07/19 05:41 77 10/07/19 05:40 72 24 99/72 98 10/07/19 05:30 77 14 99/72 100 10/07/19 05:20 79 61 H 99/72 100 10/07/19 05:10 84 6 L 99/72 99 10/07/19 05:00 73 12 104/53 100 10/07/19 04:50 73 18 104/53 100 10/07/19 04:40 78 14 104/53 10/07/19 04:30 80 9 L 104/53 86 L 10/07/19 04:20 80 13 104/53 100 10/07/19 04:10 80 19 104/53 88 L 10/07/19 04:00 76 18 95/66 99 10/07/19 03:50 80 20 95/66 100 10/07/19 03:40 84 25 H 95/66 95 10/07/19 03:30 81 16 95/66 99 10/07/19 03:23 98.4 F 80 22 95/66 93 L 10/07/19 03:20 83 8 L 95/49 98 10/07/19 03:10 81 20 95/49 99 10/07/19 03:00 77 75 24 94/48 100 10/07/19 02:53 98.2 F 80 13 95/49 99 10/07/19 02:50 85 10 L 94/48 10/07/19 02:43 98 F 81 31 H 94/48 97 10/07/19 02:40 82 10 L 94/48 93 L 10/07/19 02:30 98.0 F 81 13 94/48 97 10/07/19 02:28 97 10/07/19 02:24 20 95/49 100 10/07/19 02:20 79 11 L 91/44 10/07/19 02:10 85 23 91/44 10/07/19 02:00 84 21 10/07/19 01:50 85 6 L 80/36 10/07/19 01:40 82 0 L 80/36 94 L 10/07/19 01:30 82 13 80/36 93 L 10/07/19 01:20 81 18 79/47 94 L 10/07/19 01:10 79/47 10/07/19 01:00 79/47 97 10/07/19 00:50 79/47 75 L 10/07/19 00:40 79/47 97 10/07/19 00:30 79/47 10/07/19 00:20 79/47 10/07/19 00:18 100 18 79/47 98 10/07/19 00:10 79/47 10/07/19 00:00 82/41 10/06/19 23:50 82/41 10/06/19 23:40 82/41 10/06/19 23:30 82/41 10/06/19 23:20 82/41 10/06/19 23:10 92/37 10/06/19 23:00 92/37 87 L 10/06/19 22:50 10/06/19 22:40 92/10/06/19 22:30 9210/06/19 22:20 92/37 10/06/19 22:17 100 10/06/19 22:12 98.3 F 84 18 100 Intake and Output 10/06/19 10/07/19 10/07/19 22:59 06:59 14:59 Intake Total 930 Output Total 76 40 Balance 854 -40 Intake: Blood Product 930 Rc As-1 Unit 310 [id number] Rc As-1 Unit 0 [id number] Output: Urine 76 40 Other: Voiding Method Indwelling Catheter Weight 57.606 kg 57.606 kg Results CBC & Chem 7: 10/07/19 16:46 10/06/19 23:58 Labs: Abnormal Lab Results - Last 24 Hours (Table) 10/06/19 10/06/19 10/06/19 Range/Units 23:29 23:58 23:58 RBC 1.65 L (3.80-5.40) m/uL Hgb 5.1 L* D (11.4-16.0) gm/dL Hct 16.8 L* (34.0-46.0) % MCV 101.7 H (80.0-100.0) fL MCHC 30.5 L (31.0-37.0) g/dL RDW 16.0 H (11.5-15.5) % APTT 18.1 L (22.0-30.0) sec D-Dimer 1.49 H (<0.60) mg/L FEU Sodium (137-145) mmol/L Chloride (98-107) mmol/L BUN (7-17) mg/dL Glucose (74-99) mg/dL POC Glucose (mg/dL) (75-99) mg/dL Plasma Lactic Acid Zaki (0.7-2.0) mmol/L Calcium (8.4-10.2) mg/dL Total Protein (6.3-8.2) g/dL Albumin (3.5-5.0) g/dL Ur Leukocyte Esterase (Negative) Urine WBC (0-5) /hpf Urine Bacteria (None) /hpf Urine Mucus (None) /hpf Stool Occult Blood Positive H (Negative) Crossmatch 10/06/19 10/06/19 10/07/19 Range/Units 23:58 23:58 00:31 RBC (3.80-5.40) m/uL Hgb (11.4-16.0) gm/dL Hct (34.0-46.0) % MCV (80.0-100.0) fL MCHC (31.0-37.0) g/dL RDW (11.5-15.5) % APTT (22.0-30.0) sec D-Dimer (<0.60) mg/L FEU Sodium 129 L (137-145) mmol/L Chloride 96 L (98-107) mmol/L BUN 19 H (7-17) mg/dL Glucose 109 H (74-99) mg/dL POC Glucose (mg/dL) (75-99) mg/dL Plasma Lactic Acid Zaki 2.3 H* (0.7-2.0) mmol/L Calcium 7.8 L (8.4-10.2) mg/dL Total Protein 4.5 L (6.3-8.2) g/dL Albumin 2.2 L (3.5-5.0) g/dL Ur Leukocyte Esterase (Negative) Urine WBC (0-5) /hpf Urine Bacteria (None) /hpf Urine Mucus (None) /hpf Stool Occult Blood (Negative) Crossmatch See Detail 10/07/19 10/07/19 Range/Units 02:01 06:45 RBC (3.80-5.40) m/uL Hgb (11.4-16.0) gm/dL Hct (34.0-46.0) % MCV (80.0-100.0) fL MCHC (31.0-37.0) g/dL RDW (11.5-15.5) % APTT (22.0-30.0) sec D-Dimer (<0.60) mg/L FEU Sodium (137-145) mmol/L Chloride (98-107) mmol/L BUN (7-17) mg/dL Glucose (74-99) mg/dL POC Glucose (mg/dL) 125 H (75-99) mg/dL Plasma Lactic Acid Zaki (0.7-2.0) mmol/L Calcium (8.4-10.2) mg/dL Total Protein (6.3-8.2) g/dL Albumin (3.5-5.0) g/dL Ur Leukocyte Esterase Small H (Negative) Urine WBC 8 H (0-5) /hpf Urine Bacteria Many H (None) /hpf Urine Mucus Rare H (None) /hpf Stool Occult Blood (Negative) Crossmatch Thrombosis Risk Factor Assmnt - Choose All That Apply Any of the Below Risk Factors Present?: Yes Each Factor Represents 1 point: Abnormal pulmonary function (COPD), Medical pt on bed rest, Swollen legs (current) Each Risk Factor Represents 2 Points: Patient confined to bed Thrombosis Risk Factor Assessment Total Risk Factor Score: 5 Thrombosis Risk Factor Assessment Level: High Risk
[2019-10-08] MEDS: IPRATROPIUM-ALBUTEROL 3 ML NEB INHALATION SCH ×6 (03:18→23:42)
[2019-10-08] MEDS: oxyCODONE-APAP 5-325MG 1 EACH TAB PO PRN ×2 (04:42→11:54)
[2019-10-08 05:52] LABS: Anisocytosis Slight; Basophils % (A) 0 %; Eosinophils # (A) 0.1 k/uL (0-0.7); Eosinophils % (A) 2 %; HCT 23.5 % (34.0-46.0); HGB 7.3 gm/dL (11.4-16.0); Hypochromasia Marked; Lymphocytes % (A) 13 %; MCH 28.9 pg (25.0-35.0); MCHC 31.1 g/dL (31.0-37.0); MCV 92.7 fL (80.0-100.0); Macrocytosis Slight; Mean Platelet Volume 8.9; Monocytes # (A) 0.5 k/uL (0-1.0); Monocytes % (A) 7 %; Neutrophils # (A) 6.1 k/uL (1.3-7.7); Neutrophils % (A) 77 %; Platelet Count 111 k/uL (150-450); Poikilocytosis Moderate; RBC 2.54 m/uL (3.80-5.40); RDW 19.4 % (11.5-15.5); WBC 7.9 k/uL (3.8-10.6)
[2019-10-08 05:58] LABS: African American GFR (CKD) >90 (>60 ml/min/1.73 sqM); Anion Gap 2 mmol/L; Blood Urea Nitrogen 17 mg/dL (7-17); Calcium 7.3 mg/dL (8.4-10.2); Carbon Dioxide 24 mmol/L (22-30); Chloride 102 mmol/L (98-107); Glucose 80 mg/dL (74-99); Non-African American GFR(CKD) >90 (>60 ml/min/1.73 sqM); Sodium 128 mmol/L (137-145)
[2019-10-08 06:21] LABS: Potassium 4.4 mmol/L (3.5-5.1)
--- NOTE | 2019-10-08 06:50 | P.CONS ---
History of Present Illness - Reason for Consult Consult date: 10/07/19 GI bleed Requesting physician: Adolfo Bay - Chief Complaint Weakness - History of Present Illness 64-year-old female with past medical history significant for coronary artery disease, COPD, fibromyalgia, GERD, hyperlipidemia, hypertension, osteoarthritis, hypothyroidism, urinary incontinence, SCLEROSIS, prior DVT who was seen in the hospital for complaints of weakness and shortness of breath. The patient has had multiple hospitalizations for similar complaints and was previously seen at [facility] after EGD showed a submucosal gastric mass in the proximal body of the stomach by the cardia. Per the patient's reports endoscopic ultrasound with biopsy was significant for a benign or malignant mass. However since that time patient has required multiple hospitalizations for melena, weakness and anemia with positive stool testing. On her previous hos pitalization this month for similar complaints of patient again had an EGD showing a submucosal mass measuring 3-4 cm in the proximal stomach by the cardia with biopsies which were nondiagnostic. On current presentation hemoglobin found to be 5.1 subsequently improved at 7.5 status post transfusion. She has been noting weakness and dark stool since discharge. Review of Systems REVIEW OF SYSTEMS: CONSTITUTIONAL: Denies any fevers, chills, weight change but she is reporting significant fatigue. CARDIOVASCULAR: Denies any chest pain, palpitations high or low blood pressures RESPIRATORY: Denies any hemoptysis or cough but has had significant shortness of breath worsened with exertion. GENITOURINARY: No dysuria or hematuria. MUSCULOSKELETAL: No focal weakness reported. SKIN: Denies any new rashes or lesions, jaundice or pallor. PSYCHIATRIC: Denies any depression or anxiety. NEUROLOGY: Denies headache, denies any new focal deficits. EARS/NOSE/THROAT: No recent hearing change, congestion, nasal discharge or sore throat. EYES: No pain in eyes, discharge or change in vision. GASTROINTESTINAL: As per HPI. Past Medical History Past Medical History: Coronary Artery Disease (CAD), Chest Pain / Angina, Heart Failure, COPD, Deep Vein Thrombosis (DVT), Eye Disorder, Fibromyalgia, GE RD/Reflux, GI Bleed, Hyperlipidemia, Hypertension, Myocardial Infarction ([place]), Musculoskeletal Disorder, Neurologic Disorder, Osteoarthritis (OA), Pneumonia, Respiratory Disorder, Skin Disorder, Thyroid Disorder, Vascular Disorder Additional Past Medical History / Comment(s): Pt recently admitted to [facility] on 09/15/19 with acute on chronic FI bleed with known gastric ulcer and acute blood loss anemia, one gallstone. Other hx: 11/2012 [place] with cardiac arrest/vtach, AICD d/t cardiomyopathy/ Vtach, chronic respiratory failure-uses home O2 prn 2L/NC, tracheobronchitis, tricuspid regurgitation, multiple sclerosis, DVT bilateral legs with GFF, neuropathy bilateral legs/feet, chronic back pain, DDD, migraines, bilateral carpal tunnel syndrome, past L/R rib fractures, past L hip fracture with surgery, PUD with ulcer rupture with surgery, peritonitis, pancreatitis, IBS/ ulcerative colitis, chronic anemia, UTIs, urinary incontinence, endometriosis, hypothyroid, R cataract and L eye cataract forming again, PVD, L leg cellulitis, Last Myocardial Infarction Date:: 2012 History of Any Multi-Drug Resistant Organisms: ESBL Year Discovered:: 02/18/2014 MDRO Source:: Blood and Urine E. coli ESBL Past Surgical History: AICD, Appendectomy, Heart Catheterization, Heart Catheterization With Stent, Orthopedic Surgery, Pacemaker Additional Past Surgical History / Comment(s): Cardioversion, green field filter, laparotomy for ruptured gastric ulcer, R foot fracture with surgery, L hip fracture with surgery-has plate and screw, EGD, colonoscopies with benign polypectomy. Past Anesthesia/Blood Transfusion Reactions: No Reported Reaction Additional Past Anesthesia/Blood Transfusion Reaction / Comm: Pt has received blood in past without reaction. Date of Last Stent Placement:: 11/2012 Type of Cardiac Device: Permanent Pacemaker, AICD Device Placement Date:: 2012 Past Psychological History: Anxiety, Bipolar, Depression, Panic Disorder Smoking Status: Former smoker Past Alcohol Use History: None Reported Past Drug Use History: Marijuana - Past Family History Mother Family Medical History: Musculoskeletal Disorder Additional Family Medical History / Comment(s): MS Sister(s) Family Medical History: Myocardial Infarction ([place]) Additional Family Medical History / Comment(s): SISTER ALSO HAS MS Brother(s) Family Medical History: Musculoskeletal Disorder, Neurologic Disorder Additional Family Medical History / Comment(s): MS Father Additional Family Medical History / Comment(s): ETOH abuse, back surgery Medications and Allergies Home Medications Medication Instructions Recorded Confirmed Type Folic Acid 1 mg PO DAILY 04/08/14 10/07/19 History Thiamine [Vitamin B-1] 100 mg PO DAILY 04/13/15 10/07/19 History Cholecalciferol (Vitamin D3) 2,000 unit PO DAILY 09/27/18 10/07/19 History [Vitamin D3] Ferrous Sulfate [Iron (65 MG 325 mg PO BID 09/27/18 10/07/19 History Elemental)] Levothyroxine Sodium [Synthroid] 100 mcg PO DAILY 09/27/18 10/07/19 History Atorvastatin [Lipitor] 40 mg PO DAILY #30 tab 09/28/18 10/07/19 Rx Isosorbide Mononitrate ER [Imdur] 30 mg PO DAILY 02/06/19 10/07/19 History Albuterol Sulfate [Proair Hfa] 2 puff INHALATION RT-QID PRN 03/16/19 10/07/19 History Omeprazole 40 mg PO BID 03/16/19 10/07/19 History Gabapentin [Neurontin] 300 mg PO TID #9 cap 04/02/19 10/07/19 Rx Baclofen [Lioresal] 20 mg PO TID PRN 08/07/19 10/07/19 History Cyanocobalamin [Vitamin B-12] 1,000 mcg PO DAILY #30 tab 08/11/19 10/07/19 Rx Albuterol Nebulized [Ventolin 2.5 mg INHALATION RT-QID PRN 09/06/19 10/07/19 History Nebulized] Amiodarone HCl [Pacerone] 100 mg PO DAILY 09/06/19 10/07/19 History Ipratropium-Albuterol Nebulize 3 ml INHALATION RT-Q4H 09/06/19 10/07/19 History [Duoneb 0.5 mg-3 mg/3 ml Soln] oxyCODONE-APAP 5-325MG [Percocet 1 tab PO Q8H PRN 09/06/19 10/07/19 History 5-325 mg] ARIPiprazole [Abilify] 10 mg PO DAILY 09/07/19 10/07/19 History Citalopram Hydrobromide [CeleXA] 20 mg PO DAILY 09/07/19 10/07/19 History Fexofenadine HCl [Genet Allergy] 180 mg PO DAILY 09/15/19 10/07/19 History Haloperidol Oral Soln [Haldol Oral 1 mg PO Q6H PRN 10/07/19 10/07/19 History Soln] LORazepam [Ativan] 0.5 mg PO Q4H PRN 10/07/19 10/07/19 History MORPHINE ORAL CK CONC 20mg/mL 5 mg PO Q4H PRN 10/07/19 10/07/19 History [Roxanol Oral Soln Conc 20MG/ML] Allergies Allergy/AdvReac Type Severity Reaction Status Date / Time Penicillins Allergy Swelling/facial Verified 10/07/19 08:47 numbness Physical Exam Vitals: Vital Signs Temp Pulse Pulse Resp BP BP Pulse Ox 10/07/19 12:41 76 10/07/19 12:35 75 10/07/19 12:00 97.5 F L 76 14 103/56 97 10/07/19 11:00 80 14 100/71 100 10/07/19 10:01 97.8 F 75 14 100/71 98 10/07/19 10:00 77 12 104/65 97 10/07/19 09:30 76 10/07/19 09:21 73 10/07/19 09:00 66 12 111/65 100 10/07/19 08:11 97.8 F 74 14 111/65 99 10/07/19 08:00 97.8 F 72 14 105/68 99 10/07/19 07:53 98.1 F 73 12 105/68 100 10/07/19 07:10 74 12 91/54 100 10/07/19 07:00 98.3 F 73 11 L 81/54 100 10/07/19 06:50 73 13 87/59 100 10/07/19 06:40 76 13 87/59 100 10/07/19 06:39 98.1 F 75 12 81/54 100 10/07/19 06:30 75 14 87/59 100 10/07/19 06:20 75 11 L 87/59 100 10/07/19 06:10 77 8 L 87/59 97 10/07/19 06:00 98.1 F 79 8 L 99/72 99 10/07/19 05:54 77 10/07/19 05:50 73 12 99/72 100 10/07/19 05:41 77 10/07/19 05:40 72 24 99/72 98 10/07/19 05:30 77 14 99/72 100 10/07/19 05:20 79 61 H 99/72 100 10/07/19 05:10 84 6 L 99/72 99 10/07/19 05:00 73 12 104/53 100 10/07/19 04:50 73 18 104/53 100 10/07/19 04:40 78 14 104/53 10/07/19 04:30 80 9 L 104/53 86 L 10/07/19 04:20 80 13 104/53 100 10/07/19 04:10 80 19 104/53 88 L 10/07/19 04:00 76 18 95/66 99 10/07/19 03:50 80 20 95/66 100 10/07/19 03:40 84 25 H 95/66 95 10/07/19 03:30 81 16 95/66 99 10/07/19 03:23 98.4 F 80 22 95/66 93 L 10/07/19 03:20 83 8 L 95/49 98 10/07/19 03:10 81 20 95/49 99 10/07/19 03:00 77 75 24 94/48 100 10/07/19 02:53 98.2 F 80 13 95/49 99 10/07/19 02:50 85 10 L 94/48 10/07/19 02:43 98 F 81 31 H 94/48 97 10/07/19 02:40 82 10 L 94/48 93 L 10/07/19 02:30 98.0 F 81 13 94/48 97 10/07/19 02:28 97 10/07/19 02:24 20 95/49 100 10/07/19 02:20 79 11 L 91/44 10/07/19 02:10 85 23 91/44 10/07/19 02:00 84 21 10/07/19 01:50 85 6 L 80/36 10/07/19 01:40 82 0 L 80/36 94 L 10/07/19 01:30 82 13 80/36 93 L 10/07/19 01:20 81 18 79/47 94 L 10/07/19 01:10 79/47 10/07/19 01:00 79/47 97 10/07/19 00:50 79/47 75 L 10/07/19 00:40 79/47 97 10/07/19 00:30 79/47 10/07/19 00:20 79/47 10/07/19 00:18 100 18 79/47 98 10/07/19 00:10 79/47 10/07/19 00:00 82/41 10/06/19 23:50 82/41 10/06/19 23:40 82/41 10/06/19 23:30 82/41 10/06/19 23:20 82/41 10/06/19 23:10 92/37 10/06/19 23:00 92/37 87 L 10/06/19 22:50 92/37 10/06/19 22:40 92/37 10/06/19 22:30 92/37 10/06/19 22:20 92/37 10/06/19 22:17 92/37 100 10/06/19 22:12 98.3 F 84 18 92/37 100 Intake and Output 10/06/19 10/07/19 10/07/19 22:59 06:59 14:59 Intake Total 930 420 Output Total 76 110 Balance 854 310 Intake: IV 110 .9 KVO 60 ceFAZolin 1,000 mg In 50 Sodium Chloride 0.9% 50 ml @ 100 mls/hr IVPB Q8HR [facility] Rx#:[id number] Blood Product 930 310 Rc As-1 Unit 310 [id number] Rc As-1 Unit 0 310 [id number] Output: Urine 76 110 Other: Voiding Method Indwelling Catheter Indwelling Catheter Weight 57.606 kg 57.606 kg 57.606 kg On physical examination, patient appears comfortable in no apparent distress. HEAD: Normocephalic, atraumatic. EYES: No scleral icterus. No conjunctival injection. MOUTH: No lesions, tongue midline. NECK: Trachea midline, no gross abnormalities. CHEST: Decreased air entry in all lung perea with no wheezing appreciated. HEART: S1-S2 appreciated. ABDOMEN: Soft, nontender to palpation. Bowel sounds are positive. No organomegaly. No guarding or rigidity. EXTREMITIES: No pedal edema, bilateral erythema noted. SKIN: No rashes but bilateral erythema and lower extremities, no jaundice. NEUROLOGIC: Alert and oriented x3. No focal deficits. Results CBC & Chem 7: 10/08/19 04:09 10/08/19 04:09 Labs: Abnormal Lab Results - Last 24 Hours (Table) 10/06/19 10/06/19 10/06/19 Range/Units 23:29 23:58 23:58 RBC 1.65 L (3.80-5.40) m/uL Hgb 5.1 L* D (11.4-16.0) gm/dL Hct 16.8 L* (34.0-46.0) % MCV 101.7 H (80.0-100.0) fL MCHC 30.5 L (31.0-37.0) g/dL RDW 16.0 H (11.5-15.5) % APTT 18.1 L (22.0-30.0) sec D-Dimer 1.49 H (<0.60) mg/L FEU Sodium (137-145) mmol/L Chloride (98-107) mmol/L BUN (7-17) mg/dL Glucose (74-99) mg/dL POC Glucose (mg/dL) (75-99) mg/dL Plasma Lactic Acid Zaki (0.7-2.0) mmol/L Calcium (8.4-10.2) mg/dL Total Protein (6.3-8.2) g/dL Albumin (3.5-5.0) g/dL Ur Leukocyte Esterase (Negative) Urine WBC (0-5) /hpf Urine Bacteria (None) /hpf Urine Mucus (None) /hpf Stool Occult Blood Positive H (Negative) Crossmatch 10/06/19 10/06/19 10/07/19 Range/Units 23:58 23:58 00:31 RBC (3.80-5.40) m/uL Hgb (11.4-16.0) gm/dL Hct (34.0-46.0) % MCV (80.0-100.0) fL MCHC (31.0-37.0) g/dL RDW (11.5-15.5) % APTT (22.0-30.0) sec D-Dimer (<0.60) mg/L FEU Sodium 129 L (137-145) mmol/L Chloride 96 L (98-107) mmol/L BUN 19 H (7-17) mg/dL Glucose 109 H (74-99) mg/dL POC Glucose (mg/dL) (75-99) mg/dL Plasma Lactic Acid Zaki 2.3 H* (0.7-2.0) mmol/L Calcium 7.8 L (8.4-10.2) mg/dL Total Protein 4.5 L (6.3-8.2) g/dL Albumin 2.2 L (3.5-5.0) g/dL Ur Leukocyte Esterase (Negative) Urine WBC (0-5) /hpf Urine Bacteria (None) /hpf Urine Mucus (None) /hpf Stool Occult Blood (Negative) Crossmatch See Detail 10/07/19 10/07/19 Range/Units 02:01 06:45 RBC (3.80-5.40) m/uL Hgb (11.4-16.0) gm/dL Hct (34.0-46.0) % MCV (80.0-100.0) fL MCHC (31.0-37.0) g/dL RDW (11.5-15.5) % APTT (22.0-30.0) sec D-Dimer (<0.60) mg/L FEU Sodium (137-145) mmol/L Chloride (98-107) mmol/L BUN (7-17) mg/dL Glucose (74-99) mg/dL POC Glucose (mg/dL) 125 H (75-99) mg/dL Plasma Lactic Acid Zaki (0.7-2.0) mmol/L Calcium (8.4-10.2) mg/dL Total Protein (6.3-8.2) g/dL Albumin (3.5-5.0) g/dL Ur Leukocyte Esterase Small H (Negative) Urine WBC 8 H (0-5) /hpf Urine Bacteria Many H (None) /hpf Urine Mucus Rare H (None) /hpf Stool Occult Blood (Negative) Crossmatch Venous US: report reviewed (Positive for bilateral DVTs and lower extremities) Assessment and Plan (1) Acute on chronic anemia Narrative/Plan: 64-year-old female with multiple medical comorbidities who presented to the hospital with complaints of weakness and dark-colored stool and was found to be anemic with hemoglobin of 5.1. Patient has had multiple recent hospitalizations for similar complaints. She has a known submucosal gastric mass with recent biopsies nondiagnostic and prior biopsies biopsies at [facility] suggestive of a nonmalignant gastric mass. The patient however has remained symptomatic from recurrent bleeding from the mass which previously required Endo Clip placement for hemostasis. Multiple recent admissions with patient requiring definitive treatment of the mass which is been causing acute on chronic anemia secondary to GI bleeding. Current Visit: Yes Status: Acute Code(s): D64.9 - ANEMIA, UNSPECIFIED SNOMED Code(s): 566513565 (2) GI hemorrhage Current Visit: Yes Status: Acute Code(s): K92.2 - GASTROINTESTINAL HEMORRHAGE, UNSPECIFIED SNOMED Code(s): 60403451 (3) Abdominal mass Current Visit: No Status: Acute Code(s): R19.00 - INTRA-ABD AND PELVIC SWELLING, MASS AND LUMP, UNSP SITE SNOMED Code(s): 572935447 Plan: Supportive care Clear liquid diet Surgical recommendations Continue ICU care Patient is status post 2 units of PRBCs with appropriate increase in hemoglobin to 7.5 Continue PPI therapy Thank you for allowing us to dissipate in the care of the patient
[2019-10-08] MEDS: PANTOPRAZOLE 40 MG TABLET PO SCH ×2 (06:55→16:35)
[2019-10-08] MEDS: LEVOTHYROXINE 100 MCG TAB PO SCH (07:10)
[2019-10-08] MEDS: SODIUM CHLORIDE 0.9% 1,000 ML IV SCH ×2 (08:19→21:11)
[2019-10-08] MEDS: CHOLECALCIFEROL 1,000 UNIT TAB PO SCH (08:20)
[2019-10-08] MEDS: AMIODARONE 100 MG TAB PO SCH (08:20)
[2019-10-08] MEDS: ATORVASTATIN 40 MG TAB PO SCH (08:20)
[2019-10-08] MEDS: FOLIC ACID 1 MG TAB PO SCH (08:20)
[2019-10-08] MEDS: CYANOCOBALAMIN 500 MCG TAB PO SCH (08:20)
[2019-10-08] MEDS: ARIPiprazole 10 MG TAB PO SCH (08:21)
[2019-10-08] MEDS: THIAMINE 100 MG TAB PO SCH (08:21)
[2019-10-08] MEDS: LORATADINE 10 MG TAB PO SCH (08:21)
[2019-10-08] MEDS: CITALOPRAM HYDROBROMIDE 20 MG TAB PO SCH (08:21)
[2019-10-08] MEDS: GABAPENTIN 300 MG CAP PO SCH ×3 (08:21→21:59)
[2019-10-08] MEDS: ISOSORBIDE MONONITRATE ER 30 MG TAB.ER.24H PO SCH (08:34)
[2019-10-08] MEDS ORDERED: PROMETHAZINE 25 MG TAB PO PRN (08:55)
[2019-10-08 11:52] LABS: Glucose,Whole Blood 85 mg/dL (75-99)
--- NOTE | 2019-10-08 12:25 | P.PN ---
Subjective Progress Note Date: 10/08/19 Principal diagnosis: Upper GI bleeding This is a 64-year-old female with history of multiple medical problems, she was recently inpatient for upper GI bleeding secondary to stomach mass. Workup including EGD and biopsy of the mass was basically nondiagnostic. Patient came into the ER yesterday complaining of shortness of breath, and also complaining of melanotic stools. Denies any abdominal pain, denies any cough, no wheezing, no fever, no chills, no hemoptysis. Patient was noted to have extremely low hemoglobin of 5.1. Patient was also noted to have low sodium of 129. And positive occult blood. Considering her extremely low hemoglobin, patient was admitted, started on blood transfusion, she received so far 1 unit of packed RBCs, and we were asked to see her on consultation because the patient was admitted to the ICU. GI consultation is pending. Patient was recently discharged from the hospital on 09/24/19, she had multiple admissions for GI bleeding, and on her last admission she underwent EGD and she was found to have a gastric mass. Tissue biopsy has been negative for malignancy. She was seen at the time by surgery, and recommended that the patient gets transferred to a tertiary care center. And her primary care physician was notified by the [facility] physician that the patient will eventually need to be transferred to a tertiary care center like [facility]. Apparently this was never done. Patient is not on any anti-coagulation therapy. She is not on any blood thinners. I saw the patient in the ICU, and she seemed to be hemodynamically stable. She received already 1 unit of packed RBCs, and she is to receive another unit in the next hour or so. Patient is on 2 L nasal cannula, she has IV fluid at O but I will increase the IV fluid to 75 mL per hour. She was noted to have swelling of her lower extremities, and redness with cellulitis of lower extremities. Hence I recommended ultrasound of lower extremities and raudel mmended. Patient was reevaluated today on 10/08/19, remains in the ICU, patient is scheduled to undergo partial gastrectomy today. This will be done by Dr. Chauhan. Yesterday the patient was diagnosed as having deep vein thrombosis, and we later determined that the patient already had a Colton filter placement in the past. Hence the patient will be cleared for surgical intervention by general surgery today for partial gastrectomy. Patient received a total of 2 units of packed RBCs since admission, hemoglobin today is 7.3, and I will give her another unit of blood before she goes down to the operating room. Her IV fluid is at KVO she is on 2 L nasal cannula with O2 saturation of 99%. Her urine output has been low overnight, and I increased her IV fluid maintenance today. Patient had 1 large brown bowel movement, no bleeding, and no abdominal pain. Her IV fluid was increased to 100 mL/h, and she will receive 1 unit of packed RBCs today. Objective - Vital Signs Vital signs: Vital Signs Temp 98.1 F 10/08/19 12:00 Pulse 82 10/08/19 12:00 Resp 15 10/08/19 12:00 BP 102/69 10/08/19 12:00 Pulse Ox 98 10/08/19 12:00 Intake & Output 10/07/19 10/08/19 10/08/19 18:59 06:59 18:59 Intake Total 1600 290 700 Output Total 320 362 85 Balance 1280 -72 615 Weight 57.606 kg 60.9 kg Intake: IV 1290 290 390 .9 KVO 140 240 40 Sodium Chloride 0.9% 1, 300 000 ml @ 100 mls/hr IV . Q10H [facility] Rx#:[id number] Sodium Chloride 0.9% 1, 1000 000 ml @ 999 mls/hr IV . Q1H1M [facility] Rx#:[id number] ceFAZolin 1,000 mg In 150 50 50 Sodium Chloride 0.9% 50 ml @ 100 mls/hr IVPB Q8HR [facility] Rx#:[id number] Blood Product 310 310 As-1 Unit 310 [id number] As-1 Unit 310 [id number] Output: Urine 320 362 85 Other: Voiding Method Indwelling Catheter Indwelling Catheter Indwelling Catheter - Exam GENERAL EXAM: Revealed 64-year-old white female, in no distress. HEAD: Normocephalic/atraumatic. HEENT: PERRLA, EOMI, no icterus. Dry mucous membranes. CHEST: No chest wall deformity. Symmetrical expansion. LUNGS: Crackles at the bases no rhonchi and no wheezes. CVS: Normal S1 and S2, no S3 gallop. ABDOMEN: Soft, nontender. No hepatosplenomegaly, normal bowel sounds, no guarding or rigidity. EXTREMITIES: 2+ bipedal edema in both lower extremities, with faint erythema of both lower extremities, no tenderness. Good pulses bilaterally. MUSCULOSKELETAL: Muscle strength and tone normal. SPINE: No scoliosis or deformity SKIN: Redness and swelling of both lower extremities. CENTRAL NERVOUS SYSTEM: Alert and oriented 3 focal deficits be PSYCHIATRIC: Normal mood, blunt affect, normal mental status examination. - Labs CBC & Chem 7: 10/08/19 04:09 10/08/19 04:09 Labs: Abnormal Lab Results - Last 24 Hours (Table) 10/07/19 10/07/19 10/08/19 Range/Units 00:31 16:46 04:09 RBC 2.66 L 2.54 L (3.80-5.40) m/uL Hgb 7.5 L D 7.3 L (11.4-16.0) gm/dL Hct 24.3 L 23.5 L (34.0-46.0) % RDW 19.5 H 19.4 H (11.5-15.5) % Plt Count 131 L 111 L (150-450) k/uL Sodium (137-145) mmol/L Calcium (8.4-10.2) mg/dL Crossmatch See Detail 10/08/19 Range/Units 04:09 RBC (3.80-5.40) m/uL Hgb (11.4-16.0) gm/dL Hct (34.0-46.0) % RDW (11.5-15.5) % Plt Count (150-450) k/uL Sodium 128 L (137-145) mmol/L Calcium 7.3 L (8.4-10.2) mg/dL Crossmatch Assessment and Plan Assessment: Acute upper GI bleeding, possible GI malignancy, previous EGD and biopsy of gastric mass was nondiagnostic. Patient is scheduled to undergo partial gastrectomy today. Known history of coronary artery disease and previous coronary intervention and stenting Known history of gastric mass, previous biopsies were nondiagnostic. Acute on chronic anemia secondary to GI blood losses Chronic deep vein thrombosis of lower extremities. Patient had previous filter placement. Chronic systolic congestive heart failure secondary to LV dysfunction. History of multiple sclerosis History of peripheral neuropathy History of ventricular tachycardia and cardiac arrest History of peripheral vessel occlusive disease History of benign essential hypertension. History of fibromyalgia History of degenerative joint disease History of peripheral neuropathy History of ESBL infection History of anxiety and bipolar disorder History of AICD placement History of ulcerative colitis and irritable bowel syndrome Recommendation: Optimize patient before surgery, increase IV fluid to 100 mL per hour. Give the patient 1 unit of packed RBCs. Continue Protonix. Continue to monitor in the ICU. Continue bronchodilators for underlying COPD. Cleared for surgery, patient is definitely moderate to high operative risk. And that is mostly because of her multiple comorbidities We'll continue to follow Time with Patient: Less than 30
[2019-10-08] MEDS ORDERED: PROPOFOL 10 MG/ML 20 ML VIAL IV ONE (12:53)
[2019-10-08] MEDS ORDERED: SUCCINYLCHOLINE CHLORIDE 100 MG/5 ML SYR IV ONE (12:53)
[2019-10-08] MEDS ORDERED: ROCURONIUM 10 MG/ML (5 ML VIAL) IV ONE ×3 (12:53→18:44)
[2019-10-08] MEDS ORDERED: GLYCOPYRROLATE 0.2 MG/ML 2 ML VIAL ONE (12:53)
[2019-10-08] MEDS ORDERED: PHENYLEPHRINE-0.9% NACL SYG 1 MG/10 ML SYRINGE ONE (12:53)
[2019-10-08] MEDS ORDERED: ePHEDrine SULFATE/0.9% NACL/PF 50 MG/5 ML SYRINGE IV ONE (12:53)
[2019-10-08] MEDS ORDERED: LIDOCAINE 1% INJ 10MG/ML (20 ML MDV) ONE (12:53)
[2019-10-08] MEDS ORDERED: fentaNYL (PF) 50 MCG/ML 2 ML AMP ONE (12:53)
[2019-10-08] MEDS ORDERED: NEOSTIGMINE 1 MG/ML 10 ML VIAL ONE (12:53)
[2019-10-08] MEDS ORDERED: SODIUM CHLORIDE 0.9% 1,000 ML IV ONE ×4 (13:18→19:19)
[2019-10-08] MEDS ORDERED: LACTATED RINGERS 1,000 ML IV ONE ×2 (14:27→14:33)
[2019-10-08] MEDS ORDERED: HYDROmorphone 0.5 MG/0.5 ML SYRINGE IVP ONE (15:23)
[2019-10-08 15:50] LABS: Glucose,Whole Blood 143 mg/dL (75-99)
[2019-10-08 16:28] LABS: Anisocytosis Slight; HCT 32.1 % (34.0-46.0); HGB 10.6 gm/dL (11.4-16.0); Hypochromasia Moderate; MCH 30.3 pg (25.0-35.0); MCHC 33.1 g/dL (31.0-37.0); MCV 91.5 fL (80.0-100.0); Mean Platelet Volume 10.2; Poikilocytosis Moderate; RBC 3.51 m/uL (3.80-5.40); RDW 17.7 % (11.5-15.5); WBC 19.6 k/uL (3.8-10.6)
[2019-10-08 16:29] LABS: Platelet Count 88 k/uL (150-450)
--- NOTE | 2019-10-08 17:27 | XR ---
EXAMINATION TYPE: XR chest 1V portable DATE OF EXAM: 10/08/2019 COMPARISON: Yesterday HISTORY: Short of breath Findings Heart is fairly normal. There is left axillary pacemaker. There is no heart failure. Lungs are clear of consolidation. There is some mild interstitial density at the lateral right lung base and also ove r the left upper lobe. There are no hilar masses. There are chest leads. IMPRESSION: Minimal interstitial density probably related to some scarring. No heart failure seen. No adverse change overall compared to yesterday.
[2019-10-08] MEDS ORDERED: propofoL 100 ML IV ONE (17:50)
[2019-10-08] MEDS ORDERED: NOREPINEPHRIN 4 MG-0.9% NS PMX 4 MG/250 ML ML IV ONE ×2 (17:59→18:01)
[2019-10-08] MEDS ORDERED: SODIUM BICARB 8.4% 50 ML SYR (1 MEQ/ML) ONE ×2 (18:12→18:30)
[2019-10-08] MEDS ORDERED: VASOPRESSIN 20 UNIT/ML 1 ML VIAL ONE (18:30)
[2019-10-08] MEDS ORDERED: SUCCINYLCHOLINE CHLORIDE VIAL 200 MG/10 ML VIAL IV ONE (18:30)
[2019-10-08] MEDS ORDERED: ETOMIDATE 2 MG/ML 10 ML VIAL ONE ×2 (18:30→18:44)
[2019-10-08 18:32] LABS: Anisocytosis Slight; HCT 25.3 % (34.0-46.0); Hypochromasia Marked; MCH 28.8 pg (25.0-35.0); MCHC 30.7 g/dL (31.0-37.0); MCV 93.7 fL (80.0-100.0); Macrocytosis Slight; Mean Platelet Volume 9.2; Poikilocytosis Moderate; RBC 2.69 m/uL (3.80-5.40); RDW 18.1 % (11.5-15.5)
[2019-10-08 18:33] LABS: HGB 7.8 gm/dL (11.4-16.0)
[2019-10-08 18:43] LABS: ABG Base Excess -4.8 mmol/L; ABG HCO3 24 mmol/L (21-25); ABG Oxygen Saturation 99.5 % (94-97); ABG PCO2 64 mmHg (35-45); ABG PO2 >400 mmHg (83-108); ABG TCO2 26 mmol/L (19-24); Allen Test Performed? Yes
[2019-10-08] MEDS ORDERED: EPINEPHrine 10 ML SYRINGE (0.1 MG/ML) ONE (18:44)
[2019-10-08] MEDS ORDERED: CALCIUM CHLORIDE 100 MG/ML 10 ML SYRINGE ONE (18:44)
[2019-10-08 18:45] LABS: ABG PH 7.18 (7.35-7.45)
[2019-10-08 20:34] LABS: Band Neutrophils % 2 %; Eosinophils # (M) 0.19 k/uL (0-0.7); Lymphocytes # (M) 1.31 k/uL (1.0-4.8); Metamyelocytes # (M) 0.37 k/uL (0); Metamyelocytes % 2 %; Monocytes # (M) 0.56 k/uL (0-1.0); Myelocytes # (M) 0.19 k/uL (0); Myelocytes % 1 %; Neutrophils % (M) 86 %; Nucleated Red Blood Cells 2 /100 WBC (0-0); Total Cells Counted 200; WBC 18.7 k/uL (3.8-10.6)
[2019-10-08 20:35] LABS: Platelet Count 54 k/uL (150-450); Polychromasia Present
[2019-10-08 21:02] LABS: Glucose,Whole Blood 90 mg/dL (75-99)
--- NOTE | 2019-10-08 21:05 | P.PN ---
Progress Note - Text Progress Note Date: 10/08/19 I was called around 1820 regarding patient's hypotension and increased bloody drainage in the ROSELIA drain. I was at the patient's bedside of 1850. Patient obviously has postoperative hemorrhage. Patient was being treated for hypotension he received 3 units packed red cells in the ICU. Patient was taken urgently to the operating room
--- NOTE | 2019-10-08 21:08 | P.OP ---
Date of Procedure: 10/08/19 Preoperative Diagnosis: Postoperative hemorrhage Postoperative Diagnosis: Postoperative hemorrhage from diffuse bleeding Procedure(s) Performed: Exploratory laparotomy washout peritoneal cavity Anesthesia: FREDA Surgeon: Tien Chauhan Estimated Blood Loss (ml): 50 Pathology: other (Omentum) Condition: stable Disposition: PACU Description of Procedure: Patient's placed the operative table in supine position. She received IV general anesthesia. Her abdomen was prepped and draped usual fashion. The skin bernardo removed. The fascia was opened by cutting the fascial suture. The Bookwalter tract with wound. The patient had approximately 2 mL of bloody fluid in the cavity. Using sponges the peritoneal cavity was cleaned and aspirated. The gastric staple line was examined. There. Several small bleeding points along the gastric staple line these were oversewn with 3-0 GI silk suture. Next the area of the splenic blood was bed was examined. There is no significant bleeding seen from the splenic artery or splenic vein however there is some diffuse oozing from the retroperitoneum using 3-0 GI silk sutures the several bleeding spots were controlled. The abdomen was irrigated there is no bleeding seen. The ROSELIA drain was replaced along the gastric sleeve. The colon was examined. The appeared to be a nonviable portion omentum and this was transected using the Enseal device the specimen sent to pathology. Once again the operative field was examined for bleeding. No bleeding was seen. The fascia was closed with looped #1 PDS suture. Skin was closed with bernardo. Patient was sent to the ICU in guarded condition.
[2019-10-08] MEDS: SODIUM CHLORIDE 0.9% 50 ML with VASOPRESSIN 20 UNIT IVPB SCH ×2 (21:09)
[2019-10-08] MEDS: NOREPINEPHRINE 4 MG in SODIUM CHLORIDE 0.9% 250 ML IV SCH ×2 (21:17→23:16)
[2019-10-08 21:33] LABS: ALT 30 U/L (4-34); AST 148 U/L (14-36); African American GFR (CKD) >90 (>60 ml/min/1.73 sqM); Alkaline Phosphatase 32 U/L (38-126); Anion Gap 7 mmol/L; Blood Urea Nitrogen 15 mg/dL (7-17); Calcium 6.9 mg/dL (8.4-10.2); Carbon Dioxide 19 mmol/L (22-30); Chloride 111 mmol/L (98-107); Glucose 116 mg/dL (74-99); Non-African American GFR(CKD) >90 (>60 ml/min/1.73 sqM); Potassium 3.7 mmol/L (3.5-5.1); Sodium 137 mmol/L (137-145); Total Bilirubin 1.6 mg/dL (0.2-1.3); Total Protein 4.2 g/dL (6.3-8.2)
[2019-10-08 21:33] LABS: ABG Base Excess -9.1 mmol/L; ABG HCO3 20 mmol/L (21-25); ABG Oxygen Saturation 97.1 % (94-97); ABG PCO2 56 mmHg (35-45); ABG PO2 104 mmHg (83-108); ABG TCO2 22 mmol/L (19-24); Allen Test Performed? Yes
[2019-10-08 21:35] LABS: ABG PH 7.15 (7.35-7.45)
[2019-10-08 21:45] LABS: Anisocytosis Slight; HCT 37.8 % (34.0-46.0); Hypochromasia Slight; MCH 30.6 pg (25.0-35.0); MCHC 33.3 g/dL (31.0-37.0); Mean Platelet Volume 9.9; Poikilocytosis Slight; RBC 4.12 m/uL (3.80-5.40); RDW 16.4 % (11.5-15.5)
[2019-10-08 21:46] LABS: HGB 12.6 gm/dL (11.4-16.0)
[2019-10-08] MEDS ORDERED: SODIUM BICARB 8.4% 50 ML SYR (1 MEQ/ML) IV STA (21:46)
--- NOTE | 2019-10-08 21:52 | P.ANPRN ---
Procedure Note - Anesthesia - Invasive Line Right Central Line Time Out Performed: Yes Date of Procedure: 10/08/19 Time of Procedure: 16:45 Preparation: Sterile Prep, Sterile Dressing Ultrasound Used: Yes Purpose - Visualization and Identification of Vasculature: Yes Image Stored and Saved: Yes Narrative: The procedure, and postprocedure diagnosis : Acute postoperative gastrointestinal bleeding, hypotension, and hemodynamic instability Procedure : Cordis right internal jugular Central line placement under ultrasound guidance per sterile protocol utilized. Using ultrasound after sterile technique with 1 attempt Cordis placed without any difficulty. Secured with suture. Sterile dressing applied after Biopatch in place. Patient tolerated well.
[2019-10-08] MEDS: CHLORHEXIDINE GLUCONATE 15 ML CUP MUCOUS MEM SCH (21:58)
[2019-10-08 21:59] LABS: Magnesium 1.6 mg/dL (1.6-2.3)
[2019-10-08] MEDS: PANTOPRAZOLE 40 MG/10 ML VIAL IVP SCH (21:59)
[2019-10-08 22:23] LABS: Band Neutrophils % 6 %; Lymphocytes # (M) 0.78 k/uL (1.0-4.8); Monocytes # (M) 1.55 k/uL (0-1.0); Neutrophils % (M) 82 %; Nucleated Red Blood Cells 1 /100 WBC (0-0); Polychromasia Present; Total Cells Counted 100; WBC 19.4 k/uL (3.8-10.6)
[2019-10-08 22:24] LABS: Platelet Count 41 k/uL (150-450)
[2019-10-08 23:25] LABS: ABG Base Excess -6.4 mmol/L; ABG HCO3 21 mmol/L (21-25); ABG Oxygen Saturation 95.7 % (94-97); ABG PCO2 49 mmHg (35-45); ABG PH 7.24 (7.35-7.45); ABG PO2 80 mmHg (83-108); ABG TCO2 23 mmol/L (19-24); Allen Test Performed? Yes
[2019-10-08] MEDS: HYDROmorphone 1 MG/ML 1 ML SYRINGE IVP PRN (23:55)
--- NOTE | 2019-10-09 01:20 | XR ---
EXAMINATION TYPE: XR chest 1V portable DATE OF EXAM: 10/09/2019 COMPARISON: Yesterday HISTORY: Check tube placement TECHNIQUE: FINDINGS: There is some airspace infiltrate in the left lower lobe. There is left axillary pacemaker. There is no heart failure. There is endotracheal tube 2.5 cm from the diego. IMPRESSION: Endotracheal tube in good position. There is left lower lobe pneumonia that is new compar ed to yesterday.
[2019-10-09] MEDS: NOREPINEPHRINE 4 MG in SODIUM CHLORIDE 0.9% 250 ML IV SCH ×3 (02:53→08:31)
[2019-10-09] MEDS: IPRATROPIUM-ALBUTEROL 3 ML NEB INHALATION SCH ×5 (03:13→20:22)
[2019-10-09] MEDS: SODIUM CHLORIDE 0.9% 50 ML with VASOPRESSIN 20 UNIT IVPB SCH ×6 (04:13→23:47)
[2019-10-09] MEDS: SODIUM CHLORIDE 0.9% 1,000 ML IV SCH ×3 (04:14→21:11)
[2019-10-09 04:29] LABS: Anisocytosis Slight; HCT 38.3 % (34.0-46.0); HGB 12.6 gm/dL (11.4-16.0); Hypochromasia Slight; MCH 29.2 pg (25.0-35.0); MCV 88.7 fL (80.0-100.0); Mean Platelet Volume 11.3; Platelet Count 51 k/uL (150-450); Poikilocytosis Slight; RBC 4.32 m/uL (3.80-5.40); RDW 16.6 % (11.5-15.5)
[2019-10-09 04:32] LABS: INR 1.3 (<1.2); Prothrombin Time 13.3 sec (9.0-12.0)
[2019-10-09 04:33] LABS: ALT 29 U/L (4-34); AST 128 U/L (14-36); African American GFR (CKD) >90 (>60 ml/min/1.73 sqM); Albumin 1.8 g/dL (3.5-5.0); Alkaline Phosphatase 34 U/L (38-126); Anion Gap 6 mmol/L; Blood Urea Nitrogen 18 mg/dL (7-17); Calcium 6.6 mg/dL (8.4-10.2); Carbon Dioxide 20 mmol/L (22-30); Chloride 112 mmol/L (98-107); Glucose 104 mg/dL (74-99); Non-African American GFR(CKD) >90 (>60 ml/min/1.73 sqM); Potassium 3.8 mmol/L (3.5-5.1); Sodium 138 mmol/L (137-145); Total Bilirubin 0.9 mg/dL (0.2-1.3); Total Protein 3.8 g/dL (6.3-8.2)
[2019-10-09 05:08] LABS: Band Neutrophils % 3 %; Lymphocytes # (M) 1.09 k/uL (1.0-4.8); Monocytes # (M) 1.64 k/uL (0-1.0); Neutrophils % (M) 82 %; Nucleated Red Blood Cells 4 /100 WBC (0-0); Total Cells Counted 200; WBC 18.2 k/uL (3.8-10.6)
[2019-10-09 05:09] LABS: Polychromasia Present
[2019-10-09] MEDS: LEVOTHYROXINE 100 MCG TAB PO SCH (06:15)
[2019-10-09 06:56] LABS: ABG Base Excess -5.2 mmol/L; ABG HCO3 21 mmol/L (21-25); ABG Oxygen Saturation 98.4 % (94-97); ABG PCO2 42 mmHg (35-45); ABG PH 7.31 (7.35-7.45); ABG PO2 122 mmHg (83-108); ABG TCO2 22 mmol/L (19-24)
[2019-10-09 06:57] LABS: Allen Test Performed? no
[2019-10-09] MEDS ORDERED: FUROSEMIDE 10 MG/ML 10 ML VIAL IV STA (08:05)
--- NOTE | 2019-10-09 09:08 | P.PN ---
Subjective Progress Note Date: 10/09/19 Principal diagnosis: GI bleed The patient had reoperation last night for postoperative bleeding. She has been hematemesis stable overnight. Her hemoglobin has been stable at 12. She is currently on the ventilator. Objective - Vital Signs Vital signs: Vital Signs Temp 97.5 F L 10/09/19 04:00 Pulse 109 H 10/09/19 08:49 Resp 22 10/09/19 07:00 BP 97/74 10/09/19 07:00 Pulse Ox 95 10/09/19 06:00 Intake & Output 10/08/19 10/09/19 10/09/19 18:59 06:59 18:59 Intake Total 2510 5576.763 122.11 Output Total 665 735 0 Balance 1845 4841.763 122.11 Weight 67 kg Intake: IV 1890 3100 100 .9 KVO 40 1 amp bicarb 50 Sodium Chloride 0.9% 1, 500 1000 100 000 ml @ 100 mls/hr IV . Q10H SID Rx#:[id number] ceFAZolin 1,000 mg In 50 50 Sodium Chloride 0.9% 50 ml @ 100 mls/hr IVPB Q8HR SID Rx#:[id number] Intake, IV Titration 913.763 22.11 Amount Norepinephrine 4 mg In 888.916 Sodium Chloride 0.9% 250 ml @ 0.05 MCG/KG/MIN 11. 601 mls/hr IV .[id number] SID Rx#:[id number] Propofol 1,000 mg In 24.847 22.11 Empty Bag 1 bag @ Titrate IV .Q0M SID Rx#: [id number] Blood Product 620 1563 Ffp 24 Cpd Unit 307 [id number] Ffp 24 Cpd Unit 326 [id number] Rc As-1 Unit 310 [id number] Rc As-1 Unit 310 [id number] Rc As-1 Unit 310 [id number] Rc As-3 Unit 0 310 [id number] Rc As-3 Unit 0 310 [id number] Output: Gastric Drainage 240 Drainage 60 Abdomen 60 Urine 165 135 0 Estimated Blood Loss 500 300 Other: Voiding Method Indwelling Catheter Indwelling Catheter # Voids 0 ABP, PAP, CO, CI - Last Documented Arterial Blood Pressure 93/61 - Exam On the ventilator. Patient is awake. - Gastrointestinal Gastrointestinal Comment(s): Abdomen soft. Incision sites clean dry intact. ROSELIA drain has some serosanguineous drainage. - Labs CBC & Chem 7: 10/09/19 04:05 10/09/19 04:05 Labs: Abnormal Lab Results - Last 24 Hours (Table) 10/07/19 10/08/19 10/08/19 Range/Units 00:31 15:49 16:05 WBC 19.6 H (3.8-10.6) k/uL RBC 3.51 L (3.80-5.40) m/uL Hgb 10.6 L D (11.4-16.0) gm/dL Hct 32.1 L (34.0-46.0) % MCHC (31.0-37.0) g/dL RDW 17.7 H (11.5-15.5) % Plt Count 88 L (150-450) k/uL Neutrophils # (Manual) (1.3-7.7) k/uL Lymphocytes # (Manual) (1.0-4.8) k/uL Monocytes # (Manual) (0-1.0) k/uL Metamyelocytes # (Man) (0) k/uL Myelocytes # (Manual) (0) k/uL Nucleated RBCs (0-0) /100 WBC PT (9.0-12.0) sec INR (<1.2) ABG pH (7.35-7.45) ABG pCO2 (35-45) mmHg ABG pO2 (83-108) mmHg ABG HCO3 (21-25) mmol/L ABG Total CO2 (19-24) mmol/L ABG O2 Saturation (94-97) % Chloride (98-107) mmol/L Carbon Dioxide (22-30) mmol/L BUN (7-17) mg/dL Glucose (74-99) mg/dL POC Glucose (mg/dL) 143 H (75-99) mg/dL Calcium (8.4-10.2) mg/dL Total Bilirubin (0.2-1.3) mg/dL AST (14-36) U/L Alkaline Phosphatase (38-126) U/L Troponin I (0.000-0.034) ng/mL Total Protein (6.3-8.2) g/dL Albumin (3.5-5.0) g/dL Crossmatch See Detail 10/08/19 10/08/19 10/08/19 Range/Units 18:15 18:39 21:10 WBC 18.7 H (3.8-10.6) k/uL RBC 2.69 L (3.80-5.40) m/uL Hgb 7.8 L D (11.4-16.0) gm/dL Hct 25.3 L (34.0-46.0) % MCHC 30.7 L (31.0-37.0) g/dL RDW 18.1 H (11.5-15.5) % Plt Count 54 L (150-450) k/uL Neutrophils # (Manual) 16.40 H (1.3-7.7) k/uL Lymphocytes # (Manual) (1.0-4.8) k/uL Monocytes # (Manual) (0-1.0) k/uL Metamyelocytes # (Man) 0.37 H (0) k/uL Myelocytes # (Manual) 0.19 H (0) k/uL Nucleated RBCs 2 H (0-0) /100 WBC PT (9.0-12.0) sec INR (<1.2) ABG pH 7.18 L* (7.35-7.45) ABG pCO2 64 H (35-45) mmHg ABG pO2 >400 H (83-108) mmHg ABG HCO3 (21-25) mmol/L ABG Total CO2 26 H (19-24) mmol/L ABG O2 Saturation 99.5 H (94-97) % Chloride (98-107) mmol/L Carbon Dioxide (22-30) mmol/L BUN (7-17) mg/dL Glucose (74-99) mg/dL POC Glucose (mg/dL) (75-99) mg/dL Calcium (8.4-10.2) mg/dL Total Bilirubin (0.2-1.3) mg/dL AST (14-36) U/L Alkaline Phosphatase (38-126) U/L Troponin I 0.055 H* (0.000-0.034) ng/mL Total Protein (6.3-8.2) g/dL Albumin (3.5-5.0) g/dL Crossmatch 10/08/19 10/08/19 10/08/19 Range/Units 21:10 21:10 21:28 WBC 19.4 H (3.8-10.6) k/uL RBC (3.80-5.40) m/uL Hgb (11.4-16.0) gm/dL Hct (34.0-46.0) % MCHC (31.0-37.0) g/dL RDW 16.4 H (11.5-15.5) % Plt Count 41 L (150-450) k/uL Neutrophils # (Manual) 17.00 H (1.3-7.7) k/uL Lymphocytes # (Manual) 0.78 L (1.0-4.8) k/uL Monocytes # (Manual) 1.55 H (0-1.0) k/uL Metamyelocytes # (Man) (0) k/uL Myelocytes # (Manual) (0) k/uL Nucleated RBCs 1 H (0-0) /100 WBC PT (9.0-12.0) sec INR (<1.2) ABG pH 7.15 L* (7.35-7.45) ABG pCO2 56 H (35-45) mmHg ABG pO2 (83-108) mmHg ABG HCO3 20 L (21-25) mmol/L ABG Total CO2 (19-24) mmol/L ABG O2 Saturation 97.1 H (94-97) % Chloride 111 H (98-107) mmol/L Carbon Dioxide 19 L (22-30) mmol/L BUN (7-17) mg/dL Glucose 116 H (74-99) mg/dL POC Glucose (mg/dL) (75-99) mg/dL Calcium 6.9 L (8.4-10.2) mg/dL Total Bilirubin 1.6 H (0.2-1.3) mg/dL AST 148 H (14-36) U/L Alkaline Phosphatase 32 L (38-126) U/L Troponin I (0.000-0.034) ng/mL Total Protein 4.2 L (6.3-8.2) g/dL Albumin 2.0 L (3.5-5.0) g/dL Crossmatch 10/08/19 10/09/19 10/09/19 Range/Units 23:21 04:05 04:05 WBC 18.2 H (3.8-10.6) k/uL RBC (3.80-5.40) m/uL Hgb (11.4-16.0) gm/dL Hct (34.0-46.0) % MCHC (31.0-37.0) g/dL RDW 16.6 H (11.5-15.5) % Plt Count 51 L (150-450) k/uL Neutrophils # (Manual) 15.40 H (1.3-7.7) k/uL Lymphocytes # (Manual) (1.0-4.8) k/uL Monocytes # (Manual) 1.64 H (0-1.0) k/uL Metamyelocytes # (Man) (0) k/uL Myelocytes # (Manual) (0) k/uL Nucleated RBCs 4 H (0-0) /100 WBC PT 13.3 H (9.0-12.0) sec INR 1.3 H (<1.2) ABG pH 7.24 L (7.35-7.45) ABG pCO2 49 H (35-45) mmHg ABG pO2 80 L (83-108) mmHg ABG HCO3 (21-25) mmol/L ABG Total CO2 (19-24) mmol/L ABG O2 Saturation (94-97) % Chloride (98-107) mmol/L Carbon Dioxide (22-30) mmol/L BUN (7-17) mg/dL Glucose (74-99) mg/dL POC Glucose (mg/dL) (75-99) mg/dL Calcium (8.4-10.2) mg/dL Total Bilirubin (0.2-1.3) mg/dL AST (14-36) U/L Alkaline Phosphatase (38-126) U/L Troponin I (0.000-0.034) ng/mL Total Protein (6.3-8.2) g/dL Albumin (3.5-5.0) g/dL Crossmatch 10/09/19 10/09/19 Range/Units 04:05 06:53 WBC (3.8-10.6) k/uL RBC (3.80-5.40) m/uL Hgb (11.4-16.0) gm/dL Hct (34.0-46.0) % MCHC (31.0-37.0) g/dL RDW (11.5-15.5) % Plt Count (150-450) k/uL Neutrophils # (Manual) (1.3-7.7) k/uL Lymphocytes # (Manual) (1.0-4.8) k/uL Monocytes # (Manual) (0-1.0) k/uL Metamyelocytes # (Man) (0) k/uL Myelocytes # (Manual) (0) k/uL Nucleated RBCs (0-0) /100 WBC PT (9.0-12.0) sec INR (<1.2) ABG pH 7.31 L (7.35-7.45) ABG pCO2 (35-45) mmHg ABG pO2 122 H (83-108) mmHg ABG HCO3 (21-25) mmol/L ABG Total CO2 (19-24) mmol/L ABG O2 Saturation 98.4 H (94-97) % Chloride 112 H (98-107) mmol/L Carbon Dioxide 20 L (22-30) mmol/L BUN 18 H (7-17) mg/dL Glucose 104 H (74-99) mg/dL POC Glucose (mg/dL) (75-99) mg/dL Calcium 6.6 L (8.4-10.2) mg/dL Total Bilirubin (0.2-1.3) mg/dL AST 128 H (14-36) U/L Alkaline Phosphatase 34 L (38-126) U/L Troponin I (0.000-0.034) ng/mL Total Protein 3.8 L (6.3-8.2) g/dL Albumin 1.8 L (3.5-5.0) g/dL Crossmatch Microbiology - Last 24 Hours (Table) 10/08/19 21:23 Sputum Culture - Preliminary Sputum Assessment and Plan Assessment: Status post partial gastrectomy and omColectomyectomy for gastric bleeding. Patient will continue to receive supportive care.
[2019-10-09] MEDS: HYDROmorphone 1 MG/ML 1 ML SYRINGE IVP PRN ×5 (10:16→22:56)
[2019-10-09] MEDS: PANTOPRAZOLE 40 MG/10 ML VIAL IVP SCH ×2 (10:19→20:58)
[2019-10-09] MEDS: ISOSORBIDE MONONITRATE ER 30 MG TAB.ER.24H PO SCH (10:22)
[2019-10-09] MEDS: NOREPINEPHRINE 8 MG in SODIUM CHLORIDE 0.9% 250 ML IV SCH ×3 (11:28→21:11)
--- NOTE | 2019-10-09 11:44 | P.PN ---
Subjective Progress Note Date: 10/09/19 Principal diagnosis: Upper GI bleeding This is a 64-year-old female with history of multiple medical problems, she was recently inpatient for upper GI bleeding secondary to stomach mass. Workup including EGD and biopsy of the mass was basically nondiagnostic. Patient came into the ER yesterday complaining of shortness of breath, and also complaining of melanotic stools. Denies any abdominal pain, denies any cough, no wheezing, no fever, no chills, no hemoptysis. Patient was noted to have extremely low hemoglobin of 5.1. Patient was also noted to have low sodium of 129. And positive occult blood. Considering her extremely low hemoglobin, patient was admitted, started on blood transfusion, she received so far 1 unit of packed RBCs, and we were asked to see her on consultation because the patient was admitted to the ICU. GI consultation is pending. Patient was recently discharged from the hospital on 09/24/19, she had multiple admissions for GI bleeding, and on her last admission she underwent EGD and she was found to have a gastric mass. Tissue biopsy has been negative for malignancy. She was seen at the time by surgery, and recommended that the patient gets transferred to a tertiary care center. And her primary care physician was notified by the [facility] physician that the patient will eventually need to be transferred to a tertiary care center like [facility]. Apparently this was never done. Patient is not on any anti-coagulation therapy. She is not on any blood thinners. I saw the patient in the ICU, and she seemed to be hemodynamically stable. She received already 1 unit of packed RBCs, and she is to receive another unit in the next hour or so. Patient is on 2 L nasal cannula, she has IV fluid at O but I will increase the IV fluid to 75 mL per hour. She was noted to have swelling of her lower extremities, and redness with cellulitis of lower extremities. Hence I recommended ultrasound of lower extremities and raudel mmended. Patient was reevaluated today on 10/08/19, remains in the ICU, patient is scheduled to undergo partial gastrectomy today. This will be done by Dr. Chauhan. Yesterday the patient was diagnosed as having deep vein thrombosis, and we later determined that the patient already had a [place] filter placement in the past. Hence the patient will be cleared for surgical intervention by general surgery today for partial gastrectomy. Patient received a total of 2 units of packed RBCs since admission, hemoglobin today is 7.3, and I will give her another unit of blood before she goes down to the operating room. Her IV fluid is at KVO she is on 2 L nasal cannula with O2 saturation of 99%. Her urine output has been low overnight, and I increased her IV fluid maintenance today. Patient had 1 large brown bowel movement, no bleeding, and no abdominal pain. Her IV fluid was increased to 100 mL/h, and she will receive 1 unit of packed RBCs today. Patient was reevaluated today on 10/09/19, I saw this patient around 8 AM, yesterday, patient had a very carlos postoperative course. Shortly after she arrived to the ICU, patient developed worsening postoperative bleeding, this was quite extensive, patient received multiple units of packed RBCs, received fresh frozen plasma, she had to be reintubated, and her blood pressure was low. Surgery was notified, patient was taken back to the operating room, and there was some evidence of generalized oozing. The bleeding was controlled in the operating room. Patient came back to the ICU on mechanical ventilation, and she remains on fluids, she is on norepinephrine at 0.5 mcg/kg/m, she is on assist control rate of 2410 volume of 325 FiO2 50% and PEEP of 5. ABG this morning showed a pO2 of 122 pCO2 of 42 pH of 7.31. Urine output is marginal, hence I recommended a dose of Lasix 60 mg IV push. Chest x-ray showed evidence of atelectasis, possible infiltrate in the left lower lobe, but clinically the findings are mostly findings of atelectasis in the left lower lobe. Patient was given a weaning trial with CPAP, and she seemed to tolerate that weaning trial fairly well. Hence I recommended extubating the patient. Labs were all reviewed, chest x-ray was reviewed, and the operative reports from surgery were reviewed. Hemoglobin today is 12.6. WBC count is 18.2. Platelets are 51,000. Electrolytes are normal renal profile is normal in spite of the fact the patient may have sustained some acute tubular necrosis or acute kidney injury, but not seen on her labs today yet. Again her urine output is poor but she'll be given Lasix 1. Patient received significant amount of fluids and blood products yesterday after her initial surgery. Objective - Vital Signs Vital signs: Vital Signs Temp 97.4 F L 10/09/19 09:00 Pulse 122 H 10/09/19 11:00 Resp 12 10/09/19 11:00 BP 85/52 10/09/19 11:00 Pulse Ox 96 10/09/19 09:00 Intake & Output 10/08/19 10/09/19 10/09/19 18:59 06:59 18:59 Intake Total 2510 5576.763 554.842 Output Total 665 735 62 Balance 1845 4841.763 492.842 Weight 67 kg Intake: IV 1890 3100 400 .9 KVO 40 1 amp bicarb 50 Sodium Chloride 0.9% 1, 500 1000 400 000 ml @ 100 mls/hr IV . Q10H SID Rx#:[id number] ceFAZolin 1,000 mg In 50 50 Sodium Chloride 0.9% 50 ml @ 100 mls/hr IVPB Q8HR SID Rx#:[id number] Intake, IV Titration 913.763 154.842 Amount Norepinephrine 4 mg In 888.916 129.550 Sodium Chloride 0.9% 250 ml @ 0.05 MCG/KG/MIN 11. 601 mls/hr IV .[id number] SID Rx#:[id number] Propofol 1,000 mg In 24.847 25.292 Empty Bag 1 bag @ Titrate IV .Q0M SID Rx#: [id number] Blood Product 620 1563 Ffp 24 Cpd Unit 307 [id number] Ffp 24 Cpd Unit 326 [id number] Rc As-1 Unit 310 [id number] Rc As-1 Unit 310 [id number] Rc As-1 Unit 310 [id number] Rc As-3 Unit 0 310 [id number] Rc As-3 Unit 0 310 [id number] Output: Gastric Drainage 240 Drainage 60 Abdomen 60 Urine 165 135 62 Estimated Blood Loss 500 300 Other: Voiding Method Indwelling Catheter Indwelling Catheter # Voids 0 ABP, PAP, CO, CI - Last Documented Arterial Blood Pressure 76/56 - Exam GENERAL EXAM: Revealed 64-year-old white female, on mechanical ventilation, arousable, follows simple instructions. HEAD: Normocephalic/atraumatic. Endotracheal tube and orogastric tube are intact. HEENT: PERRLA, EOMI, no icterus. Dry mucous membranes. CHEST: No chest wall deformity. Symmetrical expansion. LUNGS: Crackles at the bases no rhonchi and no wheezes. CVS: Normal S1 and S2, no S3 gallop. ABDOMEN: Postsurgical abdomen noted, dressing is clean, ROSELIA drain is noted to have serosanguineous drainage/minimal. EXTREMITIES: 2+ bipedal edema in both lower extremities, with faint erythema of both lower extremities, no tenderness. Good pulses bilaterally. MUSCULOSKELETAL: Muscle strength and tone normal. SKIN: Redness and swelling of both lower extremities. CENTRAL NERVOUS SYSTEM: Alert and oriented 3 , no focal deficits PSYCHIATRIC: Normal mood, blunt affect, normal mental status examination. - Labs CBC & Chem 7: 10/09/19 04:05 10/09/19 04:05 Labs: Abnormal Lab Results - Last 24 Hours (Table) 10/07/19 10/08/19 10/08/19 Range/Units 00:31 15:49 16:05 WBC 19.6 H (3.8-10.6) k/uL RBC 3.51 L (3.80-5.40) m/uL Hgb 10.6 L D (11.4-16.0) gm/dL Hct 32.1 L (34.0-46.0) % MCHC (31.0-37.0) g/dL RDW 17.7 H (11.5-15.5) % Plt Count 88 L (150-450) k/uL Neutrophils # (Manual) (1.3-7.7) k/uL Lymphocytes # (Manual) (1.0-4.8) k/uL Monocytes # (Manual) (0-1.0) k/uL Metamyelocytes # (Man) (0) k/uL Myelocytes # (Manual) (0) k/uL Nucleated RBCs (0-0) /100 WBC PT (9.0-12.0) sec INR (<1.2) ABG pH (7.35-7.45) ABG pCO2 (35-45) mmHg ABG pO2 (83-108) mmHg ABG HCO3 (21-25) mmol/L ABG Total CO2 (19-24) mmol/L ABG O2 Saturation (94-97) % Chloride (98-107) mmol/L Carbon Dioxide (22-30) mmol/L BUN (7-17) mg/dL Glucose (74-99) mg/dL POC Glucose (mg/dL) 143 H (75-99) mg/dL Calcium (8.4-10.2) mg/dL Total Bilirubin (0.2-1.3) mg/dL AST (14-36) U/L Alkaline Phosphatase (38-126) U/L Troponin I (0.000-0.034) ng/mL Total Protein (6.3-8.2) g/dL Albumin (3.5-5.0) g/dL Crossmatch See Detail 10/08/19 10/08/19 10/08/19 Range/Units 18:15 18:39 21:10 WBC 18.7 H (3.8-10.6) k/uL RBC 2.69 L (3.80-5.40) m/uL Hgb 7.8 L D (11.4-16.0) gm/dL Hct 25.3 L (34.0-46.0) % MCHC 30.7 L (31.0-37.0) g/dL RDW 18.1 H (11.5-15.5) % Plt Count 54 L (150-450) k/uL Neutrophils # (Manual) 16.40 H (1.3-7.7) k/uL Lymphocytes # (Manual) (1.0-4.8) k/uL Monocytes # (Manual) (0-1.0) k/uL Metamyelocytes # (Man) 0.37 H (0) k/uL Myelocytes # (Manual) 0.19 H (0) k/uL Nucleated RBCs 2 H (0-0) /100 WBC PT (9.0-12.0) sec INR (<1.2) ABG pH 7.18 L* (7.35-7.45) ABG pCO2 64 H (35-45) mmHg ABG pO2 >400 H (83-108) mmHg ABG HCO3 (21-25) mmol/L ABG Total CO2 26 H (19-24) mmol/L ABG O2 Saturation 99.5 H (94-97) % Chloride (98-107) mmol/L Carbon Dioxide (22-30) mmol/L BUN (7-17) mg/dL Glucose (74-99) mg/dL POC Glucose (mg/dL) (75-99) mg/dL Calcium (8.4-10.2) mg/dL Total Bilirubin (0.2-1.3) mg/dL AST (14-36) U/L Alkaline Phosphatase (38-126) U/L Troponin I 0.055 H* (0.000-0.034) ng/mL Total Protein (6.3-8.2) g/dL Albumin (3.5-5.0) g/dL Crossmatch 10/08/19 10/08/19 10/08/19 Range/Units 21:10 21:10 21:28 WBC 19.4 H (3.8-10.6) k/uL RBC (3.80-5.40) m/uL Hgb (11.4-16.0) gm/dL Hct (34.0-46.0) % MCHC (31.0-37.0) g/dL RDW 16.4 H (11.5-15.5) % Plt Count 41 L (150-450) k/uL Neutrophils # (Manual) 17.00 H (1.3-7.7) k/uL Lymphocytes # (Manual) 0.78 L (1.0-4.8) k/uL Monocytes # (Manual) 1.55 H (0-1.0) k/uL Metamyelocytes # (Man) (0) k/uL Myelocytes # (Manual) (0) k/uL Nucleated RBCs 1 H (0-0) /100 WBC PT (9.0-12.0) sec INR (<1.2) ABG pH 7.15 L* (7.35-7.45) ABG pCO2 56 H (35-45) mmHg ABG pO2 (83-108) mmHg ABG HCO3 20 L (21-25) mmol/L ABG Total CO2 (19-24) mmol/L ABG O2 Saturation 97.1 H (94-97) % Chloride 111 H (98-107) mmol/L Carbon Dioxide 19 L (22-30) mmol/L BUN (7-17) mg/dL Glucose 116 H (74-99) mg/dL POC Glucose (mg/dL) (75-99) mg/dL Calcium 6.9 L (8.4-10.2) mg/dL Total Bilirubin 1.6 H (0.2-1.3) mg/dL AST 148 H (14-36) U/L Alkaline Phosphatase 32 L (38-126) U/L Troponin I (0.000-0.034) ng/mL Total Protein 4.2 L (6.3-8.2) g/dL Albumin 2.0 L (3.5-5.0) g/dL Crossmatch 10/08/19 10/09/19 10/09/19 Range/Units 23:21 04:05 04:05 WBC 18.2 H (3.8-10.6) k/uL RBC (3.80-5.40) m/uL Hgb (11.4-16.0) gm/dL Hct (34.0-46.0) % MCHC (31.0-37.0) g/dL RDW 16.6 H (11.5-15.5) % Plt Count 51 L (150-450) k/uL Neutrophils # (Manual) 15.40 H (1.3-7.7) k/uL Lymphocytes # (Manual) (1.0-4.8) k/uL Monocytes # (Manual) 1.64 H (0-1.0) k/uL Metamyelocytes # (Man) (0) k/uL Myelocytes # (Manual) (0) k/uL Nucleated RBCs 4 H (0-0) /100 WBC PT 13.3 H (9.0-12.0) sec INR 1.3 H (<1.2) ABG pH 7.24 L (7.35-7.45) ABG pCO2 49 H (35-45) mmHg ABG pO2 80 L (83-108) mmHg ABG HCO3 (21-25) mmol/L ABG Total CO2 (19-24) mmol/L ABG O2 Saturation (94-97) % Chloride (98-107) mmol/L Carbon Dioxide (22-30) mmol/L BUN (7-17) mg/dL Glucose (74-99) mg/dL POC Glucose (mg/dL) (75-99) mg/dL Calcium (8.4-10.2) mg/dL Total Bilirubin (0.2-1.3) mg/dL AST (14-36) U/L Alkaline Phosphatase (38-126) U/L Troponin I (0.000-0.034) ng/mL Total Protein (6.3-8.2) g/dL Albumin (3.5-5.0) g/dL Crossmatch 10/09/19 10/09/19 Range/Units 04:05 06:53 WBC (3.8-10.6) k/uL RBC (3.80-5.40) m/uL Hgb (11.4-16.0) gm/dL Hct (34.0-46.0) % MCHC (31.0-37.0) g/dL RDW (11.5-15.5) % Plt Count (150-450) k/uL Neutrophils # (Manual) (1.3-7.7) k/uL Lymphocytes # (Manual) (1.0-4.8) k/uL Monocytes # (Manual) (0-1.0) k/uL Metamyelocytes # (Man) (0) k/uL Myelocytes # (Manual) (0) k/uL Nucleated RBCs (0-0) /100 WBC PT (9.0-12.0) sec INR (<1.2) ABG pH 7.31 L (7.35-7.45) ABG pCO2 (35-45) mmHg ABG pO2 122 H (83-108) mmHg ABG HCO3 (21-25) mmol/L ABG Total CO2 (19-24) mmol/L ABG O2 Saturation 98.4 H (94-97) % Chloride 112 H (98-107) mmol/L Carbon Dioxide 20 L (22-30) mmol/L BUN 18 H (7-17) mg/dL Glucose 104 H (74-99) mg/dL POC Glucose (mg/dL) (75-99) mg/dL Calcium 6.6 L (8.4-10.2) mg/dL Total Bilirubin (0.2-1.3) mg/dL AST 128 H (14-36) U/L Alkaline Phosphatase 34 L (38-126) U/L Troponin I (0.000-0.034) ng/mL Total Protein 3.8 L (6.3-8.2) g/dL Albumin 1.8 L (3.5-5.0) g/dL Crossmatch Microbiology - Last 24 Hours (Table) 10/08/19 21:23 Gram Stain - Preliminary Sputum Sputum Culture - Preliminary Assessment and Plan Assessment: Status post partial gastrectomy and omentectomy for gastric bleeding, postoperative day #1 Acute upper GI bleeding, most likely from gastric mass, pathology is pending from surgery. Known history of coronary artery disease and previous coronary intervention and stenting Known history of gastric mass, previous biopsies were nondiagnostic. Acute on chronic anemia secondary to GI blood losses Chronic deep vein thrombosis of lower extremities. Patient had previous filter placement. Chronic systolic congestive heart failure secondary to LV dysfunction. History of multiple sclerosis History of peripheral neuropathy History of ventricular tachycardia and cardiac arrest History of peripheral vessel occlusive disease History of benign essential hypertension. History of fibromyalgia History of degenerative joint disease History of peripheral neuropathy History of ESBL infection History of anxiety and bipolar disorder History of AICD placement History of ulcerative colitis and irritable bowel syndrome Recommendation: Ventilator settings were reviewed, Labs were all reviewed. Chest x-ray was also reviewed. While I'm at bedside, patient had a weaning trial with CPAP, seems to be well tolerated, weaning parameters were noted, Hence I recommended extubation and placement on a nasal cannula. Examined the p atient postextubation, seems to be quite well tolerated. Plan is to continue present supportive care measures, May have to consider TPN on this patient. Via right IJ central line. Continue GI and DVT prophylaxis. Monitor and closely for any signs of bleeding. Incentive spirometry. Early ambulation. Pain control. We'll continue to follow in the ICU for the next 24 may be 48 hours. Prognosis remains quite guarded. Patient remains critically ill. Critical care time is 40 minutes Time with Patient: Greater than 30
[2019-10-09] MEDS: GABAPENTIN 300 MG CAP PO SCH ×3 (12:03→21:10)
[2019-10-09 12:07] LABS: Glucose,Whole Blood 72 mg/dL (75-99)
[2019-10-09] MEDS ORDERED: LACTATED RINGERS 1,000 ML IV ONE (13:00)
[2019-10-09 13:41] LABS: Anisocytosis Slight; HCT 36.8 % (34.0-46.0); HGB 12.5 gm/dL (11.4-16.0); Hypochromasia Slight; MCH 30.4 pg (25.0-35.0); MCHC 34.1 g/dL (31.0-37.0); MCV 89.3 fL (80.0-100.0); Mean Platelet Volume 10.9; Poikilocytosis Moderate; RBC 4.13 m/uL (3.80-5.40); RDW 17.3 % (11.5-15.5)
[2019-10-09 14:08] LABS: Band Neutrophils % 1 %; Lymphocytes # (M) 2.25 k/uL (1.0-4.8); Neutrophils % (M) 82 %; Nucleated Red Blood Cells 43 /100 WBC (0-0); Total Cells Counted 200
[2019-10-09 14:09] LABS: Poikilocytosis (M) Present; Polychromasia Present
[2019-10-09 14:23] LABS: Platelet Count 94 k/uL (150-450)
[2019-10-09] MEDS: AMIODARONE 100 MG TAB PO SCH (15:37)
[2019-10-09] MEDS: FOLIC ACID 1 MG TAB PO SCH (15:37)
[2019-10-09] MEDS: CYANOCOBALAMIN 500 MCG TAB PO SCH (15:37)
[2019-10-09] MEDS: CITALOPRAM HYDROBROMIDE 20 MG TAB PO SCH (15:37)
[2019-10-09] MEDS: CHOLECALCIFEROL 1,000 UNIT TAB PO SCH (15:37)
[2019-10-09] MEDS: ARIPiprazole 10 MG TAB PO SCH (15:37)
[2019-10-09] MEDS: ATORVASTATIN 40 MG TAB PO SCH (15:37)
[2019-10-09] MEDS: LORATADINE 10 MG TAB PO SCH (15:38)
[2019-10-09] MEDS: THIAMINE 100 MG TAB PO SCH (15:41)
--- NOTE | 2019-10-09 17:28 | P.PN ---
Progress Note - Text Progress Note Date: 11/07/19 I came to see the patient twice today once in the morning and later in the day. Both parents patient was in the operating room.. Did get an update from the nurse and also spoke with Dr. Chauhan. Patient had to go back to the OR as patient is bleeding again after the first initial surgery. Patient was not seen by me today.
--- NOTE | 2019-10-09 17:36 | P.PN ---
Progress Note - Text Progress Note Date: 10/09/19 Chief Complaint: Shortness of breath history of presenting complaint: This is a 63-year-old patient who follows with visiting physicians Dr. Vera.. Normally uses a wheelchair or a walker to get about. Chronic stable medical conditions include, coronary artery disease, COPD in an ex-smoker, chronic fibromyalgia, GERD, hyperlipidemia, essential hypertension, osteoarthritis, hypothyroid, chronic multiple sclerosis, peripheral neuropathy lower extremity, chronic urinary incontinence. Patient also was worked up at [facility] for a gastric greater curvature mass which eventually showed up to be normal smooth muscle cells. Also's chronic intermittent GI bleed from a gastric ulcer. Patient admitted to the hospital on August 06 with a diagnosis of bilateral lower extremity DVT. Could not tolerate IV heparin because of intermittent dark stools for some time. Did require blood transfusion. [place] filter was placed. Patient had repeated admissions for GI bleed. Getting blood transfusions. Continued to refuse endoscopy. Patient was now admitted 2 weeks ago again. On this occasion she agreed to proceed with endoscopy by Dr. Eliza Solis. Biopsy did come back showing gastric mucosa. She also consented for surgery. Patient now presents with shortness of breath. Continues to have dark stools. Hemoglobin came back at 5.1. Admitted to the ICU. Yesterday on October 07-patient was taken to the operating room. Partial gastrectomy and partial splenectomy was carried out. Patient was brought back to the ICU. Patient continued to have increasing bleeding for the ROSELIA drain. Became hypotensive. Patient received another 3 units of blood. Taken back to the operating room. Several oozing spors were noted around the staple site. Further suturing was carried out. Patient was returned to the ICU. Patient received a total of 7 units of blood. [id number] up in bed, awake tired. ROSELIA drain in place. Getting norepinephrine and IV fluids. Pain control. Patient is nothing by mouth. Review of systems: Was done for constitutional, cardiovascular, GI, pulmonary. relevant finding as above Active Medications Albuterol Sulfate (Ventolin Nebulized) 2.5 mg INHALATION RT-QID PRN PRN Reason: Shortness Of Breath Albuterol/Ipratropium (Duoneb 0.5 Mg-3 Mg/3 Ml Soln) 3 ml INHALATION RT-Q4H SID Last Admin: 10/09/19 15:34 Dose: 3 ml Documented by: Amiodarone HCl (Cordarone) 100 mg PO DAILY [facility] Last Admin: 10/09/19 15:37 Dose: Not Given Documented by: Aripiprazole (Abilify) 10 mg PO DAILY [facility] Last Admin: 10/09/19 15:37 Dose: Not Given Documented by: Atorvastatin Calcium (Lipitor) 40 mg PO DAILY [facility] Last Admin: 10/09/19 15:37 Dose: Not Given Documented by: Baclofen (Lioresal) 20 mg PO TID PRN PRN Reason: Muscle Spasm Cholecalciferol (Vitamin D3 (25 Mcg = 1000 Iu)) 2,000 unit PO DAILY [facility] Last Admin: 10/09/19 15:37 Dose: Not Given Documented by: Citalopram Hydrobromide (Celexa) 20 mg PO DAILY [facility] Last Admin: 10/09/19 15:37 Dose: Not Given Documented by: Cyanocobalamin (Vitamin B-12) 1,000 mcg PO DAILY [facility] Last Admin: 10/09/19 15:37 Dose: Not Given Documented by: Folic Acid (Folic Acid) 1 mg PO DAILY [facility] Last Admin: 10/09/19 15:37 Dose: Not Given Documented by: Gabapentin (Neurontin) 300 mg PO TID [facility] Last Admin: 10/09/19 15:55 Dose: Not Given Documented by: Hydromorphone HCl (Dilaudid) 1 mg IVP Q1HR PRN PRN Reason: Severe Pain Last Admin: 10/09/19 14:44 Dose: 1 mg Documented by: Cefazolin Sodium 1,000 mg/ (Sodium Chloride) 50 mls @ 100 mls/hr IVPB Q8HR [facility] Last Admin: 10/09/19 16:17 Dose: 100 mls/hr Documented by: Sodium Chloride (Saline 0.9%) 1,000 mls @ 100 mls/hr IV .Q10H [facility] Last Admin: 10/09/19 15:47 Dose: 100 mls/hr Documented by: Vasopressin 20 unit/ Sodium (Chloride) 51 mls @ 4.59 mls/hr IVPB .Q11H7M [facility] Last Admin: 10/09/19 08:36 Dose: 4.59 mls/hr Documented by: Norepinephrine Bitartrate 8 mg (/ Sodium Chloride) 258 mls @ 51.858 mls/hr IV .Q4H59M [facility]; Protocol Last Admin: 10/09/19 16:17 Dose: 0.35 mcg/kg/min, 45.376 mls/hr Documented by: Isosorbide Mononitrate (Imdur) 30 mg PO DAILY [facility] Last Admin: 10/09/19 10:22 Dose: Not Given Documented by: Levothyroxine Sodium (Synthroid) 100 mcg PO DAILY@0630 [facility] Last Admin: 10/09/19 06:15 Dose: Not Given Documented by: Loratadine (Claritin) 10 mg PO DAILY [facility] Last Admin: 10/09/19 15:38 Dose: Not Given Documented by: Lorazepam (Ativan) 0.5 mg PO Q4H PRN PRN Reason: Anxiety Morphine Sulfate (Morphine Oral Doreen 2mg/Ml) 5 mg PO Q4H PRN PRN Reason: Pain Naloxone HCl (Narcan) 0.2 mg IV Q2M PRN PRN Reason: Opioid Reversal Last Admin: 10/08/19 16:57 Dose: 0.2 mg Documented by: Oxycodone/Acetaminophen (Percocet 5-325) 1 each PO Q8H PRN PRN Reason: Pain Last Admin: 10/08/19 11:54 Dose: 1 each Documented by: Pantoprazole Sodium (Protonix) 40 mg IVP BID [facility] Last Admin: 10/09/19 10:19 Dose: 40 mg Documented by: Promethazine HCl (Phenergan) 25 mg PO Q6HR PRN PRN Reason: Nausea And Vomiting Thiamine HCl (Vitamin B-1) 100 mg PO DAILY [facility] Last Admin: 10/09/19 15:41 Dose: Not Given Documented by: Physical examination: VITAL SIGNS: 97.6, 125, 13, 81/43, 98% on 2 L GENERAL: Propped up in bed, tired, weak EYES: Pupils equal. Conjunctiva pale HEENT: External appearance of nose and ears normal, oral cavity grossly normal. Slight puffiness of the right side cheek, with no tenderness-patient has no skin NECK: JVD not raised; masses not palpable. HEART: First and second heart sounds are normal; mild edema. LUNGS: Respiratory rate increased, decreased breath sounds. ABDOMEN: Soft, tender, dressing in place. ROSELIA drain in place, no guarding or rigidity, liver spleen not palpable, no masses palpable. PSYCH: Alert and oriented x3; mood and affect normal. INVESTIGATIONS, reviewed in the clinical context: White count 18.2 hemoglobin 12.6 platelets 51 potassium 3.8 creatinine 0.71 albumin 1.8 glucose 72 Previous testing: White count 8.7 hemoglobin 5.1 platelets 150 potassium 4.1 creatinine 0.65 lacti c acid 2.3 Hemoglobin 8.7 on September 23 Assessment: -Acute on chronic GI bleed in a patient with known gastric mass - gastric mucosa per biopsy. Patient underwent partial gastrectomy and partial splenectomy on October 07. -Acute severe blood loss anemia from GI bleed, and postprocedure bleed-required a total of 7 units of blood -Acute hemorrhagic shock requiring norepinephrine-uncontrolled -Chronic lower extremity DVT -with [place] filter on 08/10/2019 -Gastric ulcer disease -Meulo-yqlftqgkd-fowpstp mass, workup done at [facility].-biopsy showing smooth muscle mass, also repeat biopsy done here showing the same. -Solitary gallstone, asymptomatic -Coronary artery disease -COPD in an ex-smoker -Chronic fibromyalgia -GERD -Hyperlipidemia -Essential hypertension -Primary osteoarthritis -Hypothyroid -Chronic multiple sclerosis -Peripheral neuropathy both the lower extremity -Chronic urinary incontinence -Chronic gait dysfunction uses a walker/wheelchair -[place] filter placed on August 09 -Type II lactic acidosis. No clinical evidence of sepsis. -Hypoalbuminemia-acute phase reactant. plan: Patient's hemoglobin is currently stable. Follow H&H. Care was discussed with the patient. Remains in the ICU. On IV Ancef. Norepinephrine drip. Also was on vasopressin drip. Pain control in place.
[2019-10-09] MEDS ORDERED: DEXTROSE 50% SYRINGE 50 ML IVP ONE (17:40)
[2019-10-09 17:41] LABS: Glucose,Whole Blood 52 mg/dL (75-99)
[2019-10-09 17:41] LABS: Glucose,Whole Blood 44 mg/dL (75-99)
[2019-10-09] MEDS ORDERED: DEXTROSE 50% SYRINGE 50 ML IVP STA (17:41)
[2019-10-09 18:00] LABS: Glucose,Whole Blood 103 mg/dL (75-99)
[2019-10-10] MEDS: IPRATROPIUM-ALBUTEROL 3 ML NEB INHALATION SCH ×6 (00:03→21:07)
[2019-10-10] MEDS ORDERED: SODIUM CHLORIDE 0.9% 1,000 ML IV ONE ×2 (01:11→02:48)
[2019-10-10] MEDS ORDERED: DILTIAZEM 125 MG in SODIUM CHLORIDE 0.9% 100 ML IV SCH (01:15)
[2019-10-10] MEDS: NOREPINEPHRINE 8 MG in SODIUM CHLORIDE 0.9% 250 ML IV SCH ×5 (01:22→21:23)
[2019-10-10] MEDS ORDERED: DEXTROSE 50% SYRINGE 50 ML IVP STA (01:49)
[2019-10-10 01:55] LABS: Glucose,Whole Blood 60 mg/dL (75-99)
[2019-10-10 02:02] LABS: Glucose,Whole Blood 186 mg/dL (75-99)
--- NOTE | 2019-10-10 02:32 | XR ---
EXAMINATION TYPE: XR chest 1V portable DATE OF EXAM: 10/10/2019 COMPARISON: Yesterday HISTORY: Check line placement TECHNIQUE: Single view FINDINGS: Heart is enlarged. There is a left axillary pacemaker. There is some pulmonary vascular con gestion. There is blunting of the costophrenic angles. There is some tubing in uncertain location ove r the left upper quadrant. There are chest leads. IMPRESSION: Mild congestive heart failure with pleural effusions. Pleural fluid increased slightly co mpared to yesterday.
[2019-10-10] MEDS ORDERED: HYDROCORTISONE SUCCINATE 100 MG/2 ML VIAL IV STA (02:49)
[2019-10-10] MEDS ORDERED: HYDROCORTISONE SUCCINATE 100 MG/2 ML VIAL ONE (02:51)
[2019-10-10 03:26] LABS: Glucose,Whole Blood 96 mg/dL (75-99)
[2019-10-10] MEDS: HYDROmorphone 1 MG/ML 1 ML SYRINGE IVP PRN ×5 (03:54→23:58)
[2019-10-10 05:59] LABS: Anisocytosis Slight; HGB 11.6 gm/dL (11.4-16.0); Hypochromasia Moderate; MCH 30.5 pg (25.0-35.0); MCHC 33.1 g/dL (31.0-37.0); MCV 91.9 fL (80.0-100.0); Mean Platelet Volume 10.1; Platelet Count 107 k/uL (150-450); Poikilocytosis Moderate; RBC 3.81 m/uL (3.80-5.40); RDW 17.8 % (11.5-15.5)
[2019-10-10 06:11] LABS: Glucose,Whole Blood 89 mg/dL (75-99)
[2019-10-10 06:16] LABS: Band Neutrophils % 2 %; Lymphocytes # (M) 0.51 k/uL (1.0-4.8); Monocytes # (M) 1.02 k/uL (0-1.0); Neutrophils % (M) 89 %; Nucleated Red Blood Cells 9 /100 WBC (0-0); Total Cells Counted 200
[2019-10-10] MEDS: LEVOTHYROXINE 100 MCG TAB PO SCH (07:09)
[2019-10-10] MEDS ORDERED: FUROSEMIDE 10 MG/ML 4 ML VIAL IV STA (08:40)
[2019-10-10 08:51] LABS: ABG Base Excess -10.3 mmol/L; ABG HCO3 17 mmol/L (21-25); ABG Oxygen Saturation 82.4 % (94-97); ABG PCO2 36 mmHg (35-45); ABG PH 7.27 (7.35-7.45); ABG TCO2 18 mmol/L (19-24)
[2019-10-10 08:54] LABS: ABG PO2 50 mmHg (83-108); Allen Test Performed? no
[2019-10-10] MEDS ORDERED: SODIUM BICARB 8.4% 50 ML SYR (1 MEQ/ML) IV STA (08:55)
[2019-10-10 09:18] LABS: Albumin 1.5 g/dL (3.5-5.0); Potassium 3.9 mmol/L (3.5-5.1); Total Bilirubin 0.6 mg/dL (0.2-1.3); Total Protein 3.3 g/dL (6.3-8.2)
[2019-10-10 09:26] LABS: Calcium 6.4 mg/dL (8.4-10.2)
[2019-10-10] MEDS: THIAMINE 100 MG TAB PO SCH (10:39)
[2019-10-10] MEDS: PANTOPRAZOLE 40 MG/10 ML VIAL IVP SCH ×2 (10:39→20:20)
--- NOTE | 2019-10-10 10:45 | P.PN ---
Subjective Progress Note Date: 10/10/19 Principal diagnosis: GI bleed The patient had reoperation last night for postoperative bleeding. She has been hematemesis stable overnight. Her hemoglobin has been stable at 12. She is currently on the ventilator. Patient has been extubated. She is awake. She has had issues with hypotension. She is currently receiving vasopressors. Her hemoglobin has been stable. Objective - Vital Signs Vital signs: Vital Signs Temp 99.6 F 10/10/19 04:00 Pulse 110 H 10/10/19 07:00 Resp 15 10/10/19 07:00 BP 91/53 10/10/19 07:00 Pulse Ox 95 10/09/19 23:00 Intake & Output 10/09/19 10/10/19 10/10/19 18:59 06:59 18:59 Intake Total 3364.567 3537.659 394.085 Output Total 1867 615 35 Balance 7970.292 5230.659 359.085 Weight 73.1 kg Intake: IV 2950 1100 100 Lactated Ringers 1,000 ml 1000 @ 999 mls/hr IV .Q1H1M [facility] Rx#:[id number] Sodium Chloride 0.9% 1, 500 000 ml @ 0 mls/hr IV .STK -[facility] Rx#:[id number] Sodium Chloride 0.9% 1, 1300 1100 100 000 ml @ 100 mls/hr IV . Q10H [facility] Rx#:[id number] ceFAZolin 1,000 mg In 150 Sodium Chloride 0.9% 50 ml @ 100 mls/hr IVPB Q8HR [facility] Rx#:[id number] Intake, IV Titration 483.916 2124.659 294.085 Amount Norepinephrine 4 mg In 129.550 Sodium Chloride 0.9% 250 ml @ 0.05 MCG/KG/MIN 11. 601 mls/hr IV .Y32Y80M [facility] Rx#:[id number] Norepinephrine 8 mg In 259.725 437.659 294.085 Sodium Chloride 0.9% 250 ml @ 0.4 MCG/KG/MIN 51. 858 mls/hr IV .Q4H59M [facility] Rx#:[id number] Propofol 1,000 mg In 25.292 Empty Bag 1 bag @ Titrate IV .Q0M [facility] Rx#: [id number] Sodium Chloride 0.9% 1, 2000 000 ml @ 999 mls/hr IV . Q1H1M [facility] Rx#:[id number] Output: Drainage 850 Abdomen 850 Urine 1017 615 35 Other: Voiding Method Indwelling Catheter Indwelling Catheter ABP, PAP, CO, CI - Last Documented Arterial Blood Pressure 68/62 - Gastrointestinal Gastrointestinal Comment(s): Abdomen soft. Incision sites clean dry intact. There is some serosanguineous drainage in the ROSELIA drain - Labs CBC & Chem 7: 10/10/19 05:51 10/10/19 05:51 Labs: Abnormal Lab Results - Last 24 Hours (Table) 10/09/19 10/09/19 10/09/19 Range/Units 12:03 12:55 12:55 WBC 15.0 H (3.8-10.6) k/uL RDW 17.3 H (11.5-15.5) % Plt Count 94 L D (150-450) k/uL Neutrophils # (Manual) 12.40 H (1.3-7.7) k/uL Lymphocytes # (Manual) (1.0-4.8) k/uL Monocytes # (Manual) (0-1.0) k/uL Nucleated RBCs 43 H (0-0) /100 WBC ABG pH (7.35-7.45) ABG pO2 (83-108) mmHg ABG HCO3 (21-25) mmol/L ABG Total CO2 (19-24) mmol/L ABG O2 Saturation (94-97) % ABG Lactic Acid 2.3 H* (0.5-1.6) mmol/L Chloride (98-107) mmol/L Carbon Dioxide (22-30) mmol/L BUN (7-17) mg/dL Creatinine (0.52-1.04) mg/dL POC Glucose (mg/dL) 72 L (75-99) mg/dL Calcium (8.4-10.2) mg/dL AST (14-36) U/L Total Protein (6.3-8.2) g/dL Albumin (3.5-5.0) g/dL 10/09/19 10/09/19 10/09/19 Range/Units 17:38 17:39 17:59 WBC (3.8-10.6) k/uL RDW (11.5-15.5) % Plt Count (150-450) k/uL Neutrophils # (Manual) (1.3-7.7) k/uL Lymphocytes # (Manual) (1.0-4.8) k/uL Monocytes # (Manual) (0-1.0) k/uL Nucleated RBCs (0-0) /100 WBC ABG pH (7.35-7.45) ABG pO2 (83-108) mmHg ABG HCO3 (21-25) mmol/L ABG Total CO2 (19-24) mmol/L ABG O2 Saturation (94-97) % ABG Lactic Acid (0.5-1.6) mmol/L Chloride (98-107) mmol/L Carbon Dioxide (22-30) mmol/L BUN (7-17) mg/dL Creatinine (0.52-1.04) mg/dL POC Glucose (mg/dL) 44 L 52 L 103 H (75-99) mg/dL Calcium (8.4-10.2) mg/dL AST (14-36) U/L Total Protein (6.3-8.2) g/dL Albumin (3.5-5.0) g/dL 10/10/19 10/10/19 10/10/19 Range/Units 01:48 02:00 05:51 WBC 17.0 H (3.8-10.6) k/uL RDW 17.8 H (11.5-15.5) % Plt Count 107 L (150-450) k/uL Neutrophils # (Manual) 15.40 H (1.3-7.7) k/uL Lymphocytes # (Manual) 0.51 L (1.0-4.8) k/uL Monocytes # (Manual) 1.02 H (0-1.0) k/uL Nucleated RBCs 9 H (0-0) /100 WBC ABG pH (7.35-7.45) ABG pO2 (83-108) mmHg ABG HCO3 (21-25) mmol/L ABG Total CO2 (19-24) mmol/L ABG O2 Saturation (94-97) % ABG Lactic Acid (0.5-1.6) mmol/L Chloride (98-107) mmol/L Carbon Dioxide (22-30) mmol/L BUN (7-17) mg/dL Creatinine (0.52-1.04) mg/dL POC Glucose (mg/dL) 60 L 186 H (75-99) mg/dL Calcium (8.4-10.2) mg/dL AST (14-36) U/L Total Protein (6.3-8.2) g/dL Albumin (3.5-5.0) g/dL 10/10/19 10/10/19 Range/Units 05:51 08:49 WBC (3.8-10.6) k/uL RDW (11.5-15.5) % Plt Count (150-450) k/uL Neutrophils # (Manual) (1.3-7.7) k/uL Lymphocytes # (Manual) (1.0-4.8) k/uL Monocytes # (Manual) (0-1.0) k/uL Nucleated RBCs (0-0) /100 WBC ABG pH 7.27 L (7.35-7.45) ABG pO2 50 L* (83-108) mmHg ABG HCO3 17 L (21-25) mmol/L ABG Total CO2 18 L (19-24) mmol/L ABG O2 Saturation 82.4 L (94-97) % ABG Lactic Acid (0.5-1.6) mmol/L Chloride 117 H (98-107) mmol/L Carbon Dioxide 17 L (22-30) mmol/L BUN 20 H (7-17) mg/dL Creatinine 1.14 H (0.52-1.04) mg/dL POC Glucose (mg/dL) (75-99) mg/dL Calcium 6.4 L* (8.4-10.2) mg/dL AST 185 H (14-36) U/L Total Protein 3.3 L (6.3-8.2) g/dL Albumin 1.5 L (3.5-5.0) g/dL Microbiology - Last 24 Hours (Table) 10/08/19 21:23 Gram Stain - Preliminary Sputum Sputum Culture - Preliminary Assessment and Plan Assessment: Status post partial gastrectomy and omColectomyectomy for gastric bleeding. Patient will continue to receive supportive care. Plan: Status post partial gastrectomy with colectomy and subsequent postoperative bleeding. Patient's he will history and stable. Her bleeding issues appear to have resolved. Patient is currently receiving therapy for her hypotension. Her condition remains guarded. She'll receive IV antibiotics and IV fluids.
[2019-10-10] MEDS: CHOLECALCIFEROL 1,000 UNIT TAB PO SCH (11:40)
[2019-10-10] MEDS: AMIODARONE 100 MG TAB PO SCH (11:40)
[2019-10-10] MEDS: ATORVASTATIN 40 MG TAB PO SCH (11:40)
[2019-10-10] MEDS: ARIPiprazole 10 MG TAB PO SCH (11:40)
[2019-10-10] MEDS: CITALOPRAM HYDROBROMIDE 20 MG TAB PO SCH (11:40)
[2019-10-10] MEDS: CYANOCOBALAMIN 500 MCG TAB PO SCH (11:41)
[2019-10-10] MEDS: LORATADINE 10 MG TAB PO SCH (11:41)
[2019-10-10] MEDS: GABAPENTIN 300 MG CAP PO SCH ×3 (11:41→20:20)
[2019-10-10] MEDS: ISOSORBIDE MONONITRATE ER 30 MG TAB.ER.24H PO SCH (11:41)
[2019-10-10] MEDS: FOLIC ACID 1 MG TAB PO SCH (11:41)
--- NOTE | 2019-10-10 12:07 | P.PN ---
Subjective Progress Note Date: 10/10/19 Principal diagnosis: Upper GI bleeding This is a 64-year-old female with history of multiple medical problems, she was recently inpatient for upper GI bleeding secondary to stomach mass. Workup including EGD and biopsy of the mass was basically nondiagnostic. Patient came into the ER yesterday complaining of shortness of breath, and also complaining of melanotic stools. Denies any abdominal pain, denies any cough, no wheezing, no fever, no chills, no hemoptysis. Patient was noted to have extremely low hemoglobin of 5.1. Patient was also noted to have low sodium of 129. And positive occult blood. Considering her extremely low hemoglobin, patient was admitted, started on blood transfusion, she received so far 1 unit of packed RBCs, and we were asked to see her on consultation because the patient was admitted to the ICU. GI consultation is pending. Patient was recently discharged from the hospital on 09/24/19, she had multiple admissions for GI bleeding, and on her last admission she underwent EGD and she was found to have a gastric mass. Tissue biopsy has been negative for malignancy. She was seen at the time by surgery, and recommended that the patient gets transferred to a tertiary care center. And her primary care physician was notified by the [facility] physician that the patient will eventually need to be transferred to a tertiary care center like [facility]. Apparently this was never done. Patient is not on any anti-coagulation therapy. She is not on any blood thinners. I saw the patient in the ICU, and she seemed to be hemodynamically stable. She received already 1 unit of packed RBCs, and she is to receive another unit in the next hour or so. Patient is on 2 L nasal cannula, she has IV fluid at [facility] but I will increase the IV fluid to 75 mL per hour. She was noted to have swelling of her lower extremities, and redness with cellulitis of lower extremities. Hence I recommended ultrasound of lower extremities and raudel mmended. Patient was reevaluated today on 10/08/19, remains in the ICU, patient is scheduled to undergo partial gastrectomy today. This will be done by Dr. Chauhan. Yesterday the patient was diagnosed as having deep vein thrombosis, and we later determined that the patient already had a Colton filter placement in the past. Hence the patient will be cleared for surgical intervention by general surgery today for partial gastrectomy. Patient received a total of 2 units of packed RBCs since admission, hemoglobin today is 7.3, and I will give her another unit of blood before she goes down to the operating room. Her IV fluid is at KVO she is on 2 L nasal cannula with O2 saturation of 99%. Her urine output has been low overnight, and I increased her IV fluid maintenance today. Patient had 1 large brown bowel movement, no bleeding, and no abdominal pain. Her IV fluid was increased to 100 mL/h, and she will receive 1 unit of packed RBCs today. Patient was reevaluated today on 10/09/19, I saw this patient around 8 AM, yesterday, patient had a very carlos postoperative course. Shortly after she arrived to the ICU, patient developed worsening postoperative bleeding, this was quite extensive, patient received multiple units of packed RBCs, received fresh frozen plasma, she had to be reintubated, and her blood pressure was low. Surgery was notified, patient was taken back to the operating room, and there was some evidence of generalized oozing. The bleeding was controlled in the operating room. Patient came back to the ICU on mechanical ventilation, and she remains on fluids, she is on norepinephrine at 0.5 mcg/kg/m, she is on assist control rate of 2410 volume of 325 FiO2 50% and PEEP of 5. ABG this morning showed a pO2 of 122 pCO2 of 42 pH of 7.31. Urine output is marginal, hence I recommended a dose of Lasix 60 mg IV push. Chest x-ray showed evidence of atelectasis, possible infiltrate in the left lower lobe, but clinically the findings are mostly findings of atelectasis in the left lower lobe. Patient was given a weaning trial with CPAP, and she seemed to tolerate that weaning trial fairly well. Hence I recommended extubating the patient. Labs were all reviewed, chest x-ray was reviewed, and the operative reports from surgery were reviewed. Hemoglobin today is 12.6. WBC count is 18.2. Platelets are 51,000. Electrolytes are normal renal profile is normal in spite of the fact the patient may have sustained some acute tubular necrosis or acute kidney injury, but not seen on her labs today yet. Again her urine output is poor but she'll be given Lasix 1. Patient received significant amount of fluids and blood products yesterday after her initial surgery. Patient was reevaluated today on 10/10/19, remains in the ICU, patient developed hypotension last night, she also developed atrial fibrillation with RVR. Given Cardizem and placed on a Cardizem drip at 5 mg per hour. She also required placement on vasopressin, and norepinephrine. Her norepinephrine dose was as high as 0.6, and vasopressin at 0.04. Overnight the patient lost her arterial line, hence I was able to place a new femoral arterial line. Patient's ABG on 2 L nasal cannula showed a pO2 of 50 pCO2 of 36 pH of 7.27, hence I gave the patient 1 amp of bicarb, increase her FiO2 to 5 L. IV fluid is at 100 mL per hour, and I recommended Lasix 40 mg IV push 1, and I will cut down her IV fluid to KVO. Chest x-ray showed mild interstitial edema and bilateral pleural ef fusions. With atelectasis especially at the left base. Nurse taking care of the patient could not draw blood from her Cordis in the right cervical region, hence a triple-lumen catheter was placed today in the groin, and a right femoral arterial line was also placed. Today after arterial line was placed, noted that her blood pressure from the arterial line was much higher than what we were getting on the cough. Hence were able to titrate the norepinephrine down to 0.15. And were still tapering. Her vasopressin will be titrated later. And Cardizem was discontinued patient converted to normal sinus rhythm this morning. Electrolytes are normal bicarb is 17 however creatinine is 1.14. Hemoglobin is holding at 11.6. WBC count of 17.0 Objective - Vital Signs Vital signs: Vital Signs Temp 100.0 F H 10/10/19 08:00 Pulse 107 H 10/10/19 11:51 Resp 27 H 10/10/19 11:00 BP 93/65 10/10/19 08:00 Pulse Ox 95 10/09/19 23:00 Intake & Output 10/09/19 10/10/19 10/10/19 18:59 06:59 18:59 Intake Total 3364.567 3537.659 807.390 Output Total 1867 615 270 Balance 3875.074 5189.659 537.390 Weight 73.1 kg Intake: IV 2950 1100 400 Lactated Ringers 1,000 ml 1000 @ 999 mls/hr IV .Q1H1M [facility] Rx#:[id number] Sodium Chloride 0.9% 1, 500 000 ml @ 0 mls/hr IV .STK -MED ONE Rx#:[id number] Sodium Chloride 0.9% 1, 1300 1100 400 000 ml @ 100 mls/hr IV . Q10H [facility] Rx#:[id number] ceFAZolin 1,000 mg In 150 Sodium Chloride 0.9% 50 ml @ 100 mls/hr IVPB Q8HR [facility] Rx#:[id number] Intake, IV Titration 915.714 9227.659 407.390 Amount Diltiazem 125 mg In 47.833 Sodium Chloride 0.9% 100 ml @ Per Protocol IV .Q0M [facility] Rx#:[id number] Norepinephrine 4 mg In 129.550 Sodium Chloride 0.9% 250 ml @ 0.05 MCG/KG/MIN 11. 601 mls/hr IV .S28U27M [facility] Rx#:[id number] Norepinephrine 8 mg In 259.725 437.659 359.557 Sodium Chloride 0.9% 250 ml @ 0.4 MCG/KG/MIN 51. 858 mls/hr IV .Q4H59M [facility] Rx#:[id number] Propofol 1,000 mg In 25.292 Empty Bag 1 bag @ Titrate IV .Q0M [facility] Rx#: [id number] Sodium Chloride 0.9% 1, 2000 000 ml @ 999 mls/hr IV . Q1H1M [facility] Rx#:[id number] Output: Drainage 850 Abdomen 850 Urine 1017 615 270 Other: Voiding Method Indwelling Catheter Indwelling Catheter ABP, PAP, CO, CI - Last Documented Arterial Blood Pressure 131/55 - Exam GENERAL EXAM: Revealed 64-year-old white female, on 2 L nasal cannula, in no distress. HEAD: Normocephalic/atraumatic. HEENT: PERRLA, EOMI, no icterus. Moist mucous membranes. No neck masses. No JVD. CHEST: No chest wall deformity. Symmetrical expansion. LUNGS: Fine crackles bilaterally, no rhonchi and no wheezes. CVS: Normal S1 and S2, no S3 gallop. ABDOMEN: Postsurgical abdomen noted, dressing is clean, ROSELIA drain is noted to hav e serosanguineous drainage/minimal. EXTREMITIES: 2+ bipedal edema in both lower extremities, with faint erythema of both lower extremities, no tenderness. Good pulses bilaterally. MUSCULOSKELETAL: Muscle strength and tone normal. SKIN: Redness and swelling of both lower extremities. CENTRAL NERVOUS SYSTEM: Alert and oriented 3 , no focal deficits PSYCHIATRIC: Normal mood, blunt affect, normal mental status examination. - Labs CBC & Chem 7: 10/10/19 05:51 10/10/19 05:51 Labs: Abnormal Lab Results - Last 24 Hours (Table) 10/09/19 10/09/19 10/09/19 Range/Units 12:03 12:55 12:55 WBC 15.0 H (3.8-10.6) k/uL RDW 17.3 H (11.5-15.5) % Plt Count 94 L D (150-450) k/uL Neutrophils # (Manual) 12.40 H (1.3-7.7) k/uL Lymphocytes # (Manual) (1.0-4.8) k/uL Monocytes # (Manual) (0-1.0) k/uL Nucleated RBCs 43 H (0-0) /100 WBC ABG pH (7.35-7.45) ABG pO2 (83-108) mmHg ABG HCO3 (21-25) mmol/L ABG Total CO2 (19-24) mmol/L ABG O2 Saturation (94-97) % ABG Lactic Acid 2.3 H* (0.5-1.6) mmol/L Chloride (98-107) mmol/L Carbon Dioxide (22-30) mmol/L BUN (7-17) mg/dL Creatinine (0.52-1.04) mg/dL POC Glucose (mg/dL) 72 L (75-99) mg/dL Calcium (8.4-10.2) mg/dL AST (14-36) U/L Total Protein (6.3-8.2) g/dL Albumin (3.5-5.0) g/dL 10/09/19 10/09/19 10/09/19 Range/Units 17:38 17:39 17:59 WBC (3.8-10.6) k/uL RDW (11.5-15.5) % Plt Count (150-450) k/uL Neutrophils # (Manual) (1.3-7.7) k/uL Lymphocytes # (Manual) (1.0-4.8) k/uL Monocytes # (Manual) (0-1.0) k/uL Nucleated RBCs (0-0) /100 WBC ABG pH (7.35-7.45) ABG pO2 (83-108) mmHg ABG HCO3 (21-25) mmol/L ABG Total CO2 (19-24) mmol/L ABG O2 Saturation (94-97) % ABG Lactic Acid (0.5-1.6) mmol/L Chloride (98-107) mmol/L Carbon Dioxide (22-30) mmol/L BUN (7-17) mg/dL Creatinine (0.52-1.04) mg/dL POC Glucose (mg/dL) 44 L 52 L 103 H (75-99) mg/dL Calcium (8.4-10.2) mg/dL AST (14-36) U/L Total Protein (6.3-8.2) g/dL Albumin (3.5-5.0) g/dL 10/10/19 10/10/19 10/10/19 Range/Units 01:48 02:00 05:51 WBC 17.0 H (3.8-10.6) k/uL RDW 17.8 H (11.5-15.5) % Plt Count 107 L (150-450) k/uL Neutrophils # (Manual) 15.40 H (1.3-7.7) k/uL Lymphocytes # (Manual) 0.51 L (1.0-4.8) k/uL Monocytes # (Manual) 1.02 H (0-1.0) k/uL Nucleated RBCs 9 H (0-0) /100 WBC ABG pH (7.35-7.45) ABG pO2 (83-108) mmHg ABG HCO3 (21-25) mmol/L ABG Total CO2 (19-24) mmol/L ABG O2 Saturation (94-97) % ABG Lactic Acid (0.5-1.6) mmol/L Chloride (98-107) mmol/L Carbon Dioxide (22-30) mmol/L BUN (7-17) mg/dL Creatinine (0.52-1.04) mg/dL POC Glucose (mg/dL) 60 L 186 H (75-99) mg/dL Calcium (8.4-10.2) mg/dL AST (14-36) U/L Total Protein (6.3-8.2) g/dL Albumin (3.5-5.0) g/dL 10/10/19 10/10/19 Range/Units 05:51 08:49 WBC (3.8-10.6) k/uL RDW (11.5-15.5) % Plt Count (150-450) k/uL Neutrophils # (Manual) (1.3-7.7) k/uL Lymphocytes # (Manual) (1.0-4.8) k/uL Monocytes # (Manual) (0-1.0) k/uL Nucleated RBCs (0-0) /100 WBC ABG pH 7.27 L (7.35-7.45) ABG pO2 50 L* (83-108) mmHg ABG HCO3 17 L (21-25) mmol/L ABG Total CO2 18 L (19-24) mmol/L ABG O2 Saturation 82.4 L (94-97) % ABG Lactic Acid (0.5-1.6) mmol/L Chloride 117 H (98-107) mmol/L Carbon Dioxide 17 L (22-30) mmol/L BUN 20 H (7-17) mg/dL Creatinine 1.14 H (0.52-1.04) mg/dL POC Glucose (mg/dL) (75-99) mg/dL Calcium 6.4 L* (8.4-10.2) mg/dL AST 185 H (14-36) U/L Total Protein 3.3 L (6.3-8.2) g/dL Albumin 1.5 L (3.5-5.0) g/dL Microbiology - Last 24 Hours (Table) 10/08/19 21:23 Gram Stain - Preliminary Sputum Sputum Culture - Preliminary Assessment and Plan Assessment: Status post partial gastrectomy and omentectomy for gastric bleeding, postoperative day #2 Acute upper GI bleeding, most likely from gastric mass, pathology is pending from surgery. Known history of coronary artery disease and previous coronary intervention and stenting Known history of gastric mass, previous biopsies were nondiagnostic. Acute on chronic anemia secondary to GI blood losses Chronic deep vein thrombosis of lower extremities. Patient had previous filter placement. Chronic systolic congestive heart failure secondary to LV dysfunction. Paroxysmal atrial fibrillation, patient is presently in normal sinus rhythm was placed on Cardizem overnight. History of multiple sclerosis History of peripheral neuropathy History of ventricular tachycardia and cardiac arrest History of peripheral vessel occlusive disease History of benign essential hypertension. History of fibromyalgia History of degenerative joint disease History of peripheral neuropathy History of ESBL infection History of anxiety and bipolar disorder History of AICD placement History of ulcerative colitis and irritable bowel syndrome Status post placement of right femoral arterial line and the right femoral triple-lumen catheter, postoperative day #0. Recommendation: Tolerated the extubation well, and she will remain on nasal cannula at 5 L/m. Diurese patient since her chest x-ray is suggestive of mild failure. Titrate norepinephrine and vasopressin down hopefully discontinue today. IV fluid to KVO, and gentle diuresis. Continue GI and DVT prophylaxis. Consider TPN if we cannot use enteral feeding. We'll discuss with surgery on the case. Continue incentive spirometer. Plan early ambulation. Continue to monitor in the ICU as long as she is hypotensive and requiring pressors. Continue to monitor for any bleeding, daily CBC and daily labs. Patient remains critically ill. Critical care time is 35 minutes, not including the time spent on procedures. Discussed her condition with surgery on the case. Time with Patient: Greater than 30
[2019-10-10] MEDS: SODIUM CHLORIDE 0.9% 50 ML with VASOPRESSIN 20 UNIT IVPB SCH ×2 (13:01)
[2019-10-10] MEDS: SODIUM CHLORIDE 0.9% 1,000 ML IV SCH ×2 (13:09→20:10)
[2019-10-10 16:17] LABS: Glucose,Whole Blood 84 mg/dL (75-99)
[2019-10-10 16:18] LABS: Magnesium 1.4 mg/dL (1.6-2.3); Phosphorus 4.7 mg/dL (2.5-4.5)
[2019-10-10] MEDS ORDERED: Magnesium Replacement Protocol 1 EACH MISC MISCELLANE PRN (17:31)
[2019-10-10] MEDS ORDERED: MAGNESIUM SULFATE-D5W PMX 1 GM in DEXTROSE/WATER 1 100ML.BAG IVPB SCH (17:45)
[2019-10-10] MEDS ORDERED: MVI, ADULT NO.4 WITH VIT K 10 ML, TRACE (CONC-1ML/DOSE) 1 ML, PARENTERAL ELECTROLYTES 2... IV ONE ×4 (18:00)
[2019-10-10] MEDS: FAT EMULSION 20% 250 ML in EMPTY BAG 1 BAG IV SCH (18:34)
--- NOTE | 2019-10-10 18:49 | OP ---
OPERATIVE REPORT OPERATIVE REPORT: Placement of a right femoral triple-lumen catheter. PREOPERATIVE DIAGNOSIS: Hypotension. Patient is requiring significant amount of pressors/ and vasopressor. The patient has difficult access; unable to draw blood. POSTOPERATIVE DIAGNOSIS: Hypotension. Patient is requiring significant amount of pressors/ and vasopressor. The patient has difficult access; unable to draw blood. ANESTHESIA USED: 2 mL of 1% lidocaine. PROCEDURE DESCRIPTION: The patient was placed in a supine position. The area of the right groin was prepared in a sterile fashion and drapes were applied. The right femoral vein was easily cannulated. A guidewire was placed, and the area around the guidewire was dilated. A triple-lumen catheter was inserted over the guidewire, and the guidewire was removed. Good blood flow was noted in the 3 different ports of the triple-lumen catheter. Line was secured using 3.0 silk sutures. There was no evidence of any immediate complications. MMODL / IJN: [id number] /
--- NOTE | 2019-10-10 18:54 | OP ---
OPERATIVE REPORT OPERATIVE REPORT: Placement of a right femoral arterial line. PREOPERATIVE DIAGNOSIS: Hypotension. POSTOPERATIVE DIAGNOSIS: Hypotension. ANESTHESIA: 2 mL of 1% lidocaine. PROCEDURE DESCRIPTION: The patient was placed in a supine position. The right groin was prepared in a sterile fashion and drapes were applied. The right femoral artery was cannulated. A guidewire was placed, and a Cook's catheter was inserted over the guidewire, and the guidewire was removed. Good blood flow and good waveform were noted. No evidence of any immediate complications. The line was secured using 3.0 silk sutures. MMODL / IJN: [id number] /
[2019-10-10] MEDS: INSULIN ASPART (NovoLOG) 100 UNIT/ML VIAL SQ SCH ×2 (19:21→23:59)
[2019-10-10] MEDS: MAGNESIUM SULFATE-D5W PMX 1 GM in DEXTROSE/WATER 1 100ML.BAG IVPB SCH ×3 (20:19→23:11)
--- NOTE | 2019-10-10 21:41 | P.PN ---
Progress Note - Text Progress Note Date: 10/10/19 Chief Complaint: Shortness of breath history of presenting complaint: This is a 63-year-old patient who follows with visiting physicians Dr. Vera.. Normally uses a wheelchair or a walker to get about. Chronic stable medical conditions include, coronary artery disease, COPD in an ex-smoker, chronic fibromyalgia, GERD, hyperlipidemia, essential hypertension, osteoarthritis, hypothyroid, chronic multiple sclerosis, peripheral neuropathy lower extremity, chronic urinary incontinence. Patient also was worked up at [facility] for a gastric greater curvature mass which eventually showed up to be normal smooth muscle cells. Also's chronic intermittent GI bleed from a gastric ulcer. Patient admitted to the hospital on August 06 with a diagnosis of bilateral lower extremity DVT. Could not tolerate IV heparin because of intermittent dark stools for some time. Did require blood transfusion. [place] filter was placed. Patient had repeated admissions for GI bleed. Getting blood transfusions. Continued to refuse endoscopy. Patient was now admitted 2 weeks ago again. On this occasion she agreed to proceed with endoscopy by Dr. Eliza Solis. Biopsy did come back showing gastric mucosa. She also consented for surgery. Patient now presents with shortness of breath. Continues to have dark stools. Hemoglobin came back at 5.1. Admitted to the ICU. Yesterday on October 07-patient was taken to the operating room. Partial gastrectomy and partial splenectomy was carried out. Patient was brought back to the ICU. Patient continued to have increasing bleeding for the ROSELIA drain. Became hypotensive. Patient received another 3 units of blood. Taken back to the operating room. Several oozing spors were noted around the staple site. Further suturing was carried out. Patient was returned to the ICU. Patient received a total of 7 units of blood. Wmvet-CLY-tgotmae up in bed. Did go into paroxysmal A. fib in a. Was put on a Cardizem drip. Because of low blood pressure was: Norepinephrine and vasopressin drip. Serosanguineous drainage through the ROSELIA drain. Remains nothing by mouth. Tired. Review of systems: Was done for constitutional, cardiovascular, GI, pulmonary. relevant finding as above Active Medications Albuterol Sulfate (Ventolin Nebulized) 2.5 mg INHALATION RT-QID PRN PRN Reason: Shortness Of Breath Albuterol/Ipratropium (Duoneb 0.5 Mg-3 Mg/3 Ml Soln) 3 ml INHALATION RT-QID [facility] Last Admin: 10/10/19 21:07 Dose: 3 ml Documented by: Albuterol/Ipratropium (Duoneb 0.5 Mg-3 Mg/3 Ml Soln) 3 ml INHALATION RT-Q2H PRN PRN Reason: Shortness Of Breath Or Wheezing Amiodarone HCl (Cordarone) 100 mg PO DAILY [facility] Last Admin: 10/10/19 11:40 Dose: Not Given Documented by: Aripiprazole (Abilify) 10 mg PO DAILY [facility] Last Admin: 10/10/19 11:40 Dose: Not Given Documented by: Atorvastatin Calcium (Lipitor) 40 mg PO DAILY [facility] Last Admin: 10/10/19 11:40 Dose: Not Given Documented by: Baclofen (Lioresal) 20 mg PO TID PRN PRN Reason: Muscle Spasm Cholecalciferol (Vitamin D3 (25 Mcg = 1000 Iu)) 2,000 unit PO DAILY [facility] Last Admin: 10/10/19 11:40 Dose: Not Given Documented by: Citalopram Hydrobromide (Celexa) 20 mg PO DAILY [facility] Last Admin: 10/10/19 11:40 Dose: Not Given Documented by: Cyanocobalamin (Vitamin B-12) 1,000 mcg PO DAILY [facility] Last Admin: 10/10/19 11:41 Dose: Not Given Documented by: Folic Acid (Folic Acid) 1 mg PO DAILY [facility] Last Admin: 10/10/19 11:41 Dose: Not Given Documented by: Gabapentin (Neurontin) 300 mg PO TID [facility] Last Admin: 10/10/19 20:20 Dose: 300 mg Documented by: Hydromorphone HCl (Dilaudid) 1 mg IVP Q1HR PRN PRN Reason: Severe Pain Last Admin: 10/10/19 16:30 Dose: 1 mg Documented by: Cefazolin Sodium 1,000 mg/ (Sodium Chloride) 50 mls @ 100 mls/hr IVPB Q8HR [facility] Last Admin: 10/10/19 16:45 Dose: 100 mls/hr Documented by: Sodium Chloride (Saline 0.9%) 1,000 mls @ 100 mls/hr IV .Q10H [facility] Last Admin: 10/10/19 20:10 Dose: Not Given Documented by: Vasopressin 20 unit/ Sodium (Chloride) 51 mls @ 4.59 mls/hr IVPB .Q11H7M [facility] Last Admin: 10/10/19 13:01 Dose: 4.59 mls/hr Documented by: Norepinephrine Bitartrate 8 mg (/ Sodium Chloride) 258 mls @ 51.858 mls/hr IV .Q4H59M [facility]; Protocol Last Admin: 10/10/19 21:23 Dose: Not Given Documented by: Diltiazem HCl 125 mg/ Sodium (Chloride) 125 mls @ 0 mls/hr IV .Q0M [facility]; Protocol Last Titration: 10/10/19 11:00 Dose: 0 mls/hr, 0 mls/hr Documented by: Parenteral Vitamin Supplement 10 ml/ Chromium/Copper/Manganese/Seleni/Zn 1 ml/Parenteral Electrolytes 20 ml/Amino Acids/Dextrose 1,031 mls @ 30 mls/hr IV .Q24H ONE Stop: 10/11/19 17:59 Last Admin: 10/10/19 18:33 Dose: 30 mls/hr Documented by: Parenteral Vitamin Supplement 10 ml/ Chromium/Copper/Manganese/Seleni/Zn 1 ml/Parenteral Electrolytes 20 ml/Amino Acids/Dextrose 1,031 mls @ 55 mls/hr IV .[id number] [facility] Fat Emulsion Intravenous 250 (ml/ IV Solution) 250 mls @ 21 mls/hr IV DAILY@1800 [facility] Last Admin: 10/10/19 18:34 Dose: 21 mls/hr Documented by: Insulin Aspart (Novolog) 0 unit SQ Q6HR [facility]; Protocol Last Admin: 10/10/19 19:21 Dose: Not Given Documented by: Isosorbide Mononitrate (Imdur) 30 mg PO DAILY [facility] Last Admin: 10/10/19 11:41 Dose: Not Given Documented by: Levothyroxine Sodium (Synthroid) 100 mcg PO DAILY@0630 [facility] Last Admin: 10/10/19 07:09 Dose: Not Given Documented by: Loratadine (Claritin) 10 mg PO DAILY [facility] Last Admin: 10/10/19 11:41 Dose: Not Given Documented by: Lorazepam (Ativan) 0.5 mg PO Q4H PRN PRN Reason: Anxiety Last Admin: 10/09/19 23:56 Dose: 0.5 mg Documented by: Miscellaneous Information (Magnesium Per Protocol) 1 each MISCELLANE DAILY PRN; Protocol PRN Reason: Per Protocol Morphine Sulfate (Morphine Oral Doreen 2mg/Ml) 5 mg PO Q4H PRN PRN Reason: Pain Naloxone HCl (Narcan) 0.2 mg IV Q2M PRN PRN Reason: Opioid Reversal Last Admin: 10/08/19 16:57 Dose: 0.2 mg Documented by: Oxycodone/Acetaminophen (Percocet 5-325) 1 each PO Q8H PRN PRN Reason: Pain Last Admin: 10/08/19 11:54 Dose: 1 each Documented by: Pantoprazole Sodium (Protonix) 40 mg IVP BID [facility] Last Admin: 10/10/19 20:20 Dose: 40 mg Documented by: Promethazine HCl (Phenergan) 25 mg PO Q6HR PRN PRN Reason: Nausea And Vomiting Thiamine HCl (Vitamin B-1) 100 mg PO DAILY [facility] Last Admin: 10/10/19 10:39 Dose: Not Given Documented by: Physical examination: VITAL SIGNS: 100, 113, 17, 93/65, GENERAL: Propped up in bed, tired, EYES: Pupils equal. Conjunctiva pale HEENT: External appearance of nose and ears normal, oral cavity grossly normal. Slight puffiness of the right side cheek, with no tenderness-patient has no skin NECK: JVD not raised; masses not palpable. HEART: First and second heart sounds are normal; mild edema. LUNGS: Respiratory rate increased, decreased breath sounds. ABDOMEN: Soft, tender, dressing in place. ROSELIA drain in place, no guarding or rigidity, liver spleen not palpable, no masses palpable. PSYCH: Alert and oriented x3; mood and affect normal. INVESTIGATIONS, reviewed in the clinical context: White count 17 hemoglobin 11.6 potassium 3.9 bicarb 17 creatinine 1.14 Previous testing: White count 8.7 hemoglobin 5.1 platelets 150 potassium 4.1 creatinine 0.65 lactic acid 2.3 Hemoglobin 8.7 on September 23 Assessment: -Acute on chronic GI bleed in a patient with known gastric mass - gastric mucosa per biopsy. Patient underwent partial gastrectomy and partial splenectomy on October 07. -Acute severe blood loss anemia from GI bleed, and postprocedure bleed-required a total of 7 units of blood -Acute hemorrhagic shock requiring norepinephrine and vasopressin-uncontrolled -Paroxysmal atrial fibrillation new-onset on Cardizem drip -Chronic lower extremity DVT -with [place] filter on 08/10/2019 -Gastric ulcer disease -Ddnpy-ommvquggp-aqidfsy mass, workup done at [facility].-biopsy showing smooth muscle mass, also repeat biopsy done here showing the same. -Solitary gallstone, asymptomatic -Coronary artery disease -COPD in an ex-smoker -Chronic fibromyalgia -GERD -Hyperlipidemia -Essential hypertension -Primary osteoarthritis -Hypothyroid -Chronic multiple sclerosis -Peripheral neuropathy both the lower extremity -Chronic urinary incontinence -Chronic gait dysfunction uses a walker/wheelchair -[place] filter placed on August 09 -Type II lactic acidosis. No clinical evidence of sepsis. -Hypoalbuminemia-acute phase reactant. plan: -Patient started on Cardizem drip. Also remains on norepinephrine and vasopressin drip. Remains nothing by mouth. Prognosis guarded. Started on TPN and lipids.
[2019-10-11 00:11] LABS: Glucose,Whole Blood 133 mg/dL (75-99)
[2019-10-11 04:21] LABS: Anisocytosis Slight; Hypochromasia Moderate; MCH 36.4 pg (25.0-35.0); MCV 92.4 fL (80.0-100.0); Platelet Count 142 k/uL (150-450); Poikilocytosis Moderate; RBC 3.57 m/uL (3.80-5.40)
[2019-10-11 04:25] LABS: Ionized Calcium 4.9 mg/dL (4.5-5.3)
[2019-10-11 04:36] LABS: Calcium 6.8 mg/dL (8.4-10.2); Phosphorus 4.1 mg/dL (2.5-4.5)
[2019-10-11 04:37] LABS: Magnesium 1.8 mg/dL (1.6-2.3); Potassium 3.4 mmol/L (3.5-5.1)
[2019-10-11 04:43] LABS: MCHC 39.4 g/dL (31.0-37.0)
[2019-10-11 05:04] LABS: Band Neutrophils % 10 %; Eosinophils # (M) 0.27 k/uL (0-0.7); Lymphocytes # (M) 0.27 k/uL (1.0-4.8); Metamyelocytes # (M) 0.27 k/uL (0); Metamyelocytes % 1 %; Monocytes # (M) 1.09 k/uL (0-1.0); Neutrophils % (M) 85 %; Nucleated Red Blood Cells 8 /100 WBC (0-0); Total Cells Counted 200; WBC 27.2 k/uL (3.8-10.6)
[2019-10-11 05:06] LABS: Toxic Vacuolation Present
[2019-10-11] MEDS: SODIUM CHLORIDE 0.9% 50 ML with VASOPRESSIN 20 UNIT IVPB SCH ×6 (06:34→21:59)
[2019-10-11] MEDS: NOREPINEPHRINE 8 MG in SODIUM CHLORIDE 0.9% 250 ML IV SCH ×5 (06:35→21:59)
[2019-10-11] MEDS: INSULIN ASPART (NovoLOG) 100 UNIT/ML VIAL SQ SCH ×4 (06:44→23:36)
[2019-10-11] MEDS: LEVOTHYROXINE 100 MCG TAB PO SCH (06:44)
[2019-10-11] MEDS: SODIUM CHLORIDE 0.9% 1,000 ML IV SCH ×2 (06:45→17:55)
--- NOTE | 2019-10-11 07:08 | XR ---
EXAMINATION TYPE: XR chest 1V portable DATE OF EXAM: 10/11/2019 COMPARISON: Prior chest x-ray 10/10/2019 HISTORY: Abnormal chest x-ray, tube placement TECHNIQUE: Single frontal view of the chest is obtained. FINDINGS: Exam is similar to prior. There is rotation. Bibasilar increased density with blunting of the costophrenic angles is noted. Heart is enlarged. There is increase in the interstitium and centra l vascularity. There is no pneumothorax. There is a generator in the left pectoral region, lead prese nt in the right ventricle. Surgical bernardo present overlying the upper abdomen, drain is present in the left upper quadrant. IMPRESSION: Correlate for congestive heart failure, pleural effusions. Cardiomegaly, postop change.
[2019-10-11] MEDS: IPRATROPIUM-ALBUTEROL 3 ML NEB INHALATION SCH ×4 (07:11→20:11)
[2019-10-11] MEDS: FOLIC ACID 1 MG TAB PO SCH (08:53)
[2019-10-11] MEDS: CITALOPRAM HYDROBROMIDE 20 MG TAB PO SCH (08:53)
[2019-10-11] MEDS: AMIODARONE 100 MG TAB PO SCH (08:53)
[2019-10-11] MEDS: CYANOCOBALAMIN 500 MCG TAB PO SCH (08:53)
[2019-10-11] MEDS: CHOLECALCIFEROL 1,000 UNIT TAB PO SCH (08:53)
[2019-10-11] MEDS: ARIPiprazole 10 MG TAB PO SCH (08:53)
[2019-10-11] MEDS: ATORVASTATIN 40 MG TAB PO SCH (08:53)
[2019-10-11] MEDS: LORATADINE 10 MG TAB PO SCH (08:54)
[2019-10-11] MEDS: GABAPENTIN 300 MG CAP PO SCH ×3 (08:54→19:39)
[2019-10-11] MEDS: THIAMINE 100 MG TAB PO SCH (08:54)
[2019-10-11] MEDS: ISOSORBIDE MONONITRATE ER 30 MG TAB.ER.24H PO SCH (08:54)
[2019-10-11] MEDS: POTASSIUM CHLORIDE 20 MEQ in WATER FOR INJECTION 1 100ML.BAG IVPB SCH ×2 (08:57→12:18)
[2019-10-11] MEDS: PANTOPRAZOLE 40 MG/10 ML VIAL IVP SCH ×2 (08:57→19:58)
[2019-10-11] MEDS: MAGNESIUM SULFATE-D5W PMX 1 GM in DEXTROSE/WATER 1 100ML.BAG IVPB SCH ×2 (08:58→12:17)
[2019-10-11] MEDS: CLINDAMYCIN 600 MG in DEXTROSE 5% IN WATER 50 ML IVPB SCH ×6 (08:58→23:36)
[2019-10-11] MEDS ORDERED: CEFEPIME 1 GM in SODIUM CHLORIDE 0.9% 50 ML IVPB SCH (09:00)
--- NOTE | 2019-10-11 10:54 | P.PN ---
Subjective Progress Note Date: 10/11/19 Principal diagnosis: Upper GI bleeding This is a 64-year-old female with history of multiple medical problems, she was recently inpatient for upper GI bleeding secondary to stomach mass. Workup including EGD and biopsy of the mass was basically nondiagnostic. Patient came into the ER yesterday complaining of shortness of breath, and also complaining of melanotic stools. Denies any abdominal pain, denies any cough, no wheezing, no fever, no chills, no hemoptysis. Patient was noted to have extremely low hemoglobin of 5.1. Patient was also noted to have low sodium of 129. And positive occult blood. Considering her extremely low hemoglobin, patient was admitted, started on blood transfusion, she received so far 1 unit of packed RBCs, and we were asked to see her on consultation because the patient was admitted to the ICU. GI consultation is pending. Patient was recently discharged from the hospital on 09/24/19, she had multiple admissions for GI bleeding, and on her last admission she underwent EGD and she was found to have a gastric mass. Tissue biopsy has been negative for malignancy. She was seen at the time by surgery, and recommended that the patient gets transferred to a tertiary care center. And her primary care physician was notified by the [facility] physician that the patient will eventually need to be transferred to a tertiary care center like [facility]. Apparently this was never done. Patient is not on any anti-coagulation therapy. She is not on any blood thinners. I saw the patient in the ICU, and she seemed to be hemodynamically stable. She received already 1 unit of packed RBCs, and she is to receive another unit in the next hour or so. Patient is on 2 L nasal cannula, she has IV fluid at [facility] but I will increase the IV fluid to 75 mL per hour. She was noted to have swelling of her lower extremities, and redness with cellulitis of lower extremities. Hence I recommended ultrasound of lower extremities and raudel mmended. Patient was reevaluated today on 10/08/19, remains in the ICU, patient is scheduled to undergo partial gastrectomy today. This will be done by Dr. Chauhan. Yesterday the patient was diagnosed as having deep vein thrombosis, and we later determined that the patient already had a [place] filter placement in the past. Hence the patient will be cleared for surgical intervention by general surgery today for partial gastrectomy. Patient received a total of 2 units of packed RBCs since admission, hemoglobin today is 7.3, and I will give her another unit of blood before she goes down to the operating room. Her IV fluid is at KVO she is on 2 L nasal cannula with O2 saturation of 99%. Her urine output has been low overnight, and I increased her IV fluid maintenance today. Patient had 1 large brown bowel movement, no bleeding, and no abdominal pain. Her IV fluid was increased to 100 mL/h, and she will receive 1 unit of packed RBCs today. Patient was reevaluated today on 10/09/19, I saw this patient around 8 AM, yesterday, patient had a very carlos postoperative course. Shortly after she arrived to the ICU, patient developed worsening postoperative bleeding, this was quite extensive, patient received multiple units of packed RBCs, received fresh frozen plasma, she had to be reintubated, and her blood pressure was low. Surgery was notified, patient was taken back to the operating room, and there was some evidence of generalized oozing. The bleeding was controlled in the operating room. Patient came back to the ICU on mechanical ventilation, and she remains on fluids, she is on norepinephrine at 0.5 mcg/kg/m, she is on assist control rate of 2410 volume of 325 FiO2 50% and PEEP of 5. ABG this morning showed a pO2 of 122 pCO2 of 42 pH of 7.31. Urine output is marginal, hence I recommended a dose of Lasix 60 mg IV push. Chest x-ray showed evidence of atelectasis, possible infiltrate in the left lower lobe, but clinically the findings are mostly findings of atelectasis in the left lower lobe. Patient was given a weaning trial with CPAP, and she seemed to tolerate that weaning trial fairly well. Hence I recommended extubating the patient. Labs were all reviewed, chest x-ray was reviewed, and the operative reports from surgery were reviewed. Hemoglobin today is 12.6. WBC count is 18.2. Platelets are 51,000. Electrolytes are normal renal profile is normal in spite of the fact the patient may have sustained some acute tubular necrosis or acute kidney injury, but not seen on her labs today yet. Again her urine output is poor but she'll be given Lasix 1. Patient received significant amount of fluids and blood products yesterday after her initial surgery. Patient was reevaluated today on 10/10/19, remains in the ICU, patient developed hypotension last night, she also developed atrial fibrillation with RVR. Given Cardizem and placed on a Cardizem drip at 5 mg per hour. She also required placement on vasopressin, and norepinephrine. Her norepinephrine dose was as high as 0.6, and vasopressin at 0.04. Overnight the patient lost her arterial line, hence I was able to place a new femoral arterial line. Patient's ABG on 2 L nasal cannula showed a pO2 of 50 pCO2 of 36 pH of 7.27, hence I gave the patient 1 amp of bicarb, increase her FiO2 to 5 L. IV fluid is at 100 mL per hour, and I recommended Lasix 40 mg IV push 1, and I will cut down her IV fluid to KVO. Chest x-ray showed mild interstitial edema and bilateral pleural ef fusions. With atelectasis especially at the left base. Nurse taking care of the patient could not draw blood from her Cordis in the right cervical region, hence a triple-lumen catheter was placed today in the groin, and a right femoral arterial line was also placed. Today after arterial line was placed, noted that her blood pressure from the arterial line was much higher than what we were getting on the cough. Hence were able to titrate the norepinephrine down to 0.15. And were still tapering. Her vasopressin will be titrated later. And Cardizem was discontinued patient converted to normal sinus rhythm this morning. Electrolytes are normal bicarb is 17 however creatinine is 1.14. Hemoglobin is holding at 11.6. WBC count of 17.0 Patient was reevaluated today on 10/11/19, remains in the ICU. Remains on vasopressin at 0.04 units per minute, she is off norepinephrine. Her IV fluid is at 100 mL/h and I cut it down to 50 mL per hour she is on TPN at 3 0 mL/h. Urine output is excellent at 1 50 mL per hour. Patient is on room air, denies any shortness of breath, chest x-ray showed bibasilar interstitial edema or infiltrates. Hence I recommended cutting down her IV fluid, and I added empiric antibiotics in the form of clindamycin and cefepime. Patient is ALLERGIC to penicillin, considering the patient is diuresing and her own, I will not add Lasix at this point. But I will cut down her IV fluid and continue TPN. Patient is denying any shortness of breath, no cough, denies any nausea vomiting or abdominal pain. WBC count is 27.2 hemoglobin is 13 platelets are 142,000. Basic metabolic profile showed low potassium of 3.4 and normal renal profile. Objective - Vital Signs Vital signs: Vital Signs Temp 96.5 F L 10/11/19 08:00 Pulse 89 10/11/19 10:00 Resp 17 10/11/19 10:00 BP 77/35 10/11/19 07:00 Pulse Ox 60 L 10/11/19 07:00 Intake & Output 10/10/19 10/11/19 10/11/19 18:59 06:59 18:59 Intake Total 1909.679 4645 542 Output Total 1665 725 480 Balance 279.258 405 62 Weight 73.1 kg 75.3 kg 75.3 kg Intake: IV 1433 1130 542 Cefepime 1 gm In Sodium 50 Chloride 0.9% 50 ml @ 100 mls/hr IVPB Q12HR [facility] Rx #:[id number] Mag 300 100 Mvi, Adult No.4 with Vit 30 K 10 ml Trace (Conc-1Ml/ Dose) 1 ml Parenteral Electrolytes 20 ml In Amino Acid 5%-D15w 1,000 ml @ 30 mls/hr IV .Q24H [facility] Rx#:[id number] Pressure Bag 33 30 12 Sodium Chloride 0.9% 1, 1300 800 350 000 ml @ 100 mls/hr IV . Q10H [facility] Rx#:[id number] ceFAZolin 1,000 mg In 100 Sodium Chloride 0.9% 50 ml @ 100 mls/hr IVPB Q8HR [facility] Rx#:[id number] Intake, IV Titration 511.258 Amount Diltiazem 125 mg In 47.833 Sodium Chloride 0.9% 100 ml @ Per Protocol IV .Q0M [facility] Rx#:[id number] Norepinephrine 8 mg In 463.425 Sodium Chloride 0.9% 250 ml @ 0.4 MCG/KG/MIN 51. 858 mls/hr IV .Q4H59M [facility] Rx#:[id number] Output: Drainage 250 240 100 Abdomen 250 240 100 Urine 1415 485 380 Other: Voiding Method Indwelling Catheter Indwelling Catheter Indwelling Catheter ABP, PAP, CO, CI - Last Documented Arterial Blood Pressure 103/53 - Exam GENERAL EXAM: Revealed 64-year-old white female, on room air. HEAD: Normocephalic/atraumatic. HEENT: PERRLA, EOMI, no icterus. Moist mucous membranes. No neck masses. No JVD. CHEST: No chest wall deformity. Symmetrical expansion. LUNGS: Minimal crackles at the bases, CVS: Normal S1 and S2, no S3 gallop. ABDOMEN: Postsurgical abdomen noted, dressing is clean, ROSELIA drain is noted to have serosanguineous drainage/minimal. EXTREMITIES: 2+ bipedal edema in both lower extremities, with faint erythema of both lower extremities, no tenderness. Good pulses bilaterally. MUSCULOSKELETAL: Muscle strength and tone normal. SKIN: Redness and swelling of both lower extremities. CENTRAL NERVOUS SYSTEM: Alert and oriented 3 , no focal deficits PSYCHIATRIC: Normal mood, blunt affect, normal mental status examination. - Labs CBC & Chem 7: 10/11/19 04:12 10/11/19 04:12 Labs: Abnormal Lab Results - Last 24 Hours (Table) 10/07/19 10/10/19 10/11/19 Range/Units 00:31 15:55 00:10 WBC (3.8-10.6) k/uL RBC (3.80-5.40) m/uL Hct (34.0-46.0) % MCH (25.0-35.0) pg MCHC (31.0-37.0) g/dL RDW (11.5-15.5) % Plt Count (150-450) k/uL Neutrophils # (Manual) (1.3-7.7) k/uL Lymphocytes # (Manual) (1.0-4.8) k/uL Monocytes # (Manual) (0-1.0) k/uL Metamyelocytes # (Man) (0) k/uL Nucleated RBCs (0-0) /100 WBC Potassium (3.5-5.1) mmol/L Chloride (98-107) mmol/L Carbon Dioxide (22-30) mmol/L BUN (7-17) mg/dL Glucose (74-99) mg/dL POC Glucose (mg/dL) 133 H (75-99) mg/dL Calcium (8.4-10.2) mg/dL Phosphorus 4.7 H (2.5-4.5) mg/dL Magnesium 1.4 L (1.6-2.3) mg/dL Crossmatch See Detail 10/11/19 10/11/19 Range/Units 04:12 04:12 WBC 27.2 H (3.8-10.6) k/uL RBC 3.57 L (3.80-5.40) m/uL Hct 33.0 L (34.0-46.0) % MCH 36.4 H (25.0-35.0) pg MCHC 39.4 H (31.0-37.0) g/dL RDW 18.0 H (11.5-15.5) % Plt Count 142 L (150-450) k/uL Neutrophils # (Manual) 25.80 H (1.3-7.7) k/uL Lymphocytes # (Manual) 0.27 L (1.0-4.8) k/uL Monocytes # (Manual) 1.09 H (0-1.0) k/uL Metamyelocytes # (Man) 0.27 H (0) k/uL Nucleated RBCs 8 H (0-0) /100 WBC Potassium 3.4 L (3.5-5.1) mmol/L Chloride 114 H (98-107) mmol/L Carbon Dioxide 19 L (22-30) mmol/L BUN 27 H (7-17) mg/dL Glucose 184 H (74-99) mg/dL POC Glucose (mg/dL) (75-99) mg/dL Calcium 6.8 L (8.4-10.2) mg/dL Phosphorus (2.5-4.5) mg/dL Magnesium (1.6-2.3) mg/dL Crossmatch Microbiology - Last 24 Hours (Table) 10/08/19 21:23 Gram Stain - Final Sputum Sputum Culture - Final Assessment and Plan Assessment: Status post partial gastrectomy and omentectomy for gastric bleeding, postoperative day #3 pathology on the gastric mass is pending. Acute upper GI bleeding, most likely from gastric mass, pathology is pending from surgery. Known history of coronary artery disease and previous coronary intervention and stenting Known history of gastric mass, previous biopsies were nondiagnostic. Acute on chronic anemia secondary to GI blood losses Chronic deep vein thrombosis of lower extremities. Patient had previous filter placement. Chronic systolic congestive heart failure secondary to LV dysfunction. Doubt aspiration pneumonia, but not entirely ruled out hence patient will be treated empirically with antibiotics. Paroxysmal atrial fibrillation, presently in normal sinus rhythm. History of multiple sclerosis History of peripheral neuropathy History of ventricular tachycardia and cardiac arrest History of peripheral vessel occlusive disease History of benign essential hypertension. History of fibromyalgia History of degenerative joint disease History of peripheral neuropathy History of ESBL infection History of anxiety and bipolar disorder History of AICD placement History of ulcerative colitis and irritable bowel syndrome Status post placement of right femoral arterial line and the right femoral triple-lumen catheter, postoperative day #0. Recommendation: Tolerated the extubation well, presently on room air. Empiric antibiotics in the form of cefepime and clindamycin. Patient is off norepinephrine, continue vasopressin and titrate accordingly. Cut down her IV fluid. And monitor renal output as well as strict I's and O's. Continue GI and DVT prophylaxis. Continue TPN. Continue incentive spirometer. Continue to monitor in the ICU as long as she is requiring vasopressin Continue to monitor for any bleeding, daily CBC and daily labs. Patient remains critically ill. Critical care time is 32 minutes Time with Patient: Greater than 30
--- NOTE | 2019-10-11 12:05 | P.PN ---
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 She is postoperative day 3. She is in the ICU. She is on pressors. She has been extubated for 2 days. She complains of hunger. No fevers or chills. ROS: No reports of nausea and vomiting. No fevers or chills. No new chest pain. PHYSICAL EXAM: VITAL SIGNS: Reviewed. T-max in 99.0 CONSTITUTIONAL: Well developed and in no acute distress. EYES: Conjuctivae without sclera icterus. Extraocular movements grossly intact. HEAD, EARS, NOSE, THROAT: Dry buccal mucosa. Head is atraumatic, normocephalic. Hears conversational speech. No nasal drainage. NECK: Supple. No thyroidomegaly. RESPIRATORY: Non-labored respirations and equal bilateral excursions. CARDIOVASCULAR: Palpable 2+ radial pulses. ABDOMEN: Abdominal dressing clean dry and intact. ROSELIA serosanguineous. MUSCULOSKELETAL: Has mild cyanosis bilateral feet with soft tissue was consistent with peripheral vascular occlusive disease along the mid third toe. SKIN: Good skin turgor. NEUROLOGIC: Cranial nerves II through XII grossly intact. No focal or lateralizing signs. PSYCH: Slow affect. Alert and oriented person. Has mild dysarthria speaking CLINICAL LABS: White blood cell count from 17,000 to 27,000. Platelets increased from 41,000 to 142,000. ASSESSMENT: 1. Status post splenectomy gastrectomy for gastric tumor with takeback for bleeding 2. Reactive leukocytosis PLAN: 1. Patient has a gastrectomy sleeve orientation. Recommend esophagram to rule out leak. 2. Hold diet until esophagram assessed. 3. Recommend infectious disease consultation for recent asplenia 4. Recommend additional workup for leukocytosis with infectious disease consultation obtained Objective - Vital Signs Vital signs: Vital Signs Temp 96.5 F L 10/11/19 08:00 Pulse 93 10/11/19 11:13 Resp 17 10/11/19 10:00 BP 77/35 10/11/19 07:00 Pulse Ox 60 L 10/11/19 07:00 Intake & Output 10/10/19 10/11/19 10/11/19 18:59 06:59 18:59 Intake Total 9626.148 7455 542 Output Total 1665 725 480 Balance 279.258 405 62 Weight 73.1 kg 75.3 kg 75.3 kg Intake: IV 1433 1130 542 Cefepime 1 gm In Sodium 50 Chloride 0.9% 50 ml @ 100 mls/hr IVPB Q12HR [facility] Rx #:[id number] Mag 300 100 Mvi, Adult No.4 with Vit 30 K 10 ml Trace (Conc-1Ml/ Dose) 1 ml Parenteral Electrolytes 20 ml In Amino Acid 5%-D15w 1,000 ml @ 30 mls/hr IV .Q24H ONE Rx#:[id number] Pressure Bag 33 30 12 Sodium Chloride 0.9% 1, 1300 800 350 000 ml @ 100 mls/hr IV . Q10H [facility] Rx#:[id number] ceFAZolin 1,000 mg In 100 Sodium Chloride 0.9% 50 ml @ 100 mls/hr IVPB Q8HR [facility] Rx#:[id number] Intake, IV Titration 511.258 Amount Diltiazem 125 mg In 47.833 Sodium Chloride 0.9% 100 ml @ Per Protocol IV .Q0M [facility] Rx#:[id number] Norepinephrine 8 mg In 463.425 Sodium Chloride 0.9% 250 ml @ 0.4 MCG/KG/MIN 51. 858 mls/hr IV .Q4H59M [facility] Rx#:[id number] Output: Drainage 250 240 100 Abdomen 250 240 100 Urine 1415 485 380 Other: Voiding Method Indwelling Catheter Indwelling Catheter Indwelling Catheter ABP, PAP, CO, CI - Last Documented Arterial Blood Pressure 103/53 - Labs CBC & Chem 7: 10/11/19 04:12 10/11/19 04:12 Labs: Abnormal Lab Results - Last 24 Hours (Table) 10/07/19 10/10/19 10/11/19 Range/Units 00:31 15:55 00:10 WBC (3.8-10.6) k/uL RBC (3.80-5.40) m/uL Hct (34.0-46.0) % MCH (25.0-35.0) pg MCHC (31.0-37.0) g/dL RDW (11.5-15.5) % Plt Count (150-450) k/uL Neutrophils # (Manual) (1.3-7.7) k/uL Lymphocytes # (Manual) (1.0-4.8) k/uL Monocytes # (Manual) (0-1.0) k/uL Metamyelocytes # (Man) (0) k/uL Nucleated RBCs (0-0) /100 WBC Potassium (3.5-5.1) mmol/L Chloride (98-107) mmol/L Carbon Dioxide (22-30) mmol/L BUN (7-17) mg/dL Glucose (74-99) mg/dL POC Glucose (mg/dL) 133 H (75-99) mg/dL Calcium (8.4-10.2) mg/dL Phosphorus 4.7 H (2.5-4.5) mg/dL Magnesium 1.4 L (1.6-2.3) mg/dL Crossmatch See Detail 10/11/19 10/11/19 Range/Units 04:12 04:12 WBC 27.2 H (3.8-10.6) k/uL RBC 3.57 L (3.80-5.40) m/uL Hct 33.0 L (34.0-46.0) % MCH 36.4 H (25.0-35.0) pg MCHC 39.4 H (31.0-37.0) g/dL RDW 18.0 H (11.5-15.5) % Plt Count 142 L (150-450) k/uL Neutrophils # (Manual) 25.80 H (1.3-7.7) k/uL Lymphocytes # (Manual) 0.27 L (1.0-4.8) k/uL Monocytes # (Manual) 1.09 H (0-1.0) k/uL Metamyelocytes # (Man) 0.27 H (0) k/uL Nucleated RBCs 8 H (0-0) /100 WBC Potassium 3.4 L (3.5-5.1) mmol/L Chloride 114 H (98-107) mmol/L Carbon Dioxide 19 L (22-30) mmol/L BUN 27 H (7-17) mg/dL Glucose 184 H (74-99) mg/dL POC Glucose (mg/dL) (75-99) mg/dL Calcium 6.8 L (8.4-10.2) mg/dL Phosphorus (2.5-4.5) mg/dL Magnesium (1.6-2.3) mg/dL Crossmatch Microbiology - Last 24 Hours (Table) 10/08/19 21:23 Gram Stain - Final Sputum Sputum Culture - Final Assessment and Plan (1) Peripheral vascular occlusive disease Current Visit: Yes Status: Acute Code(s): I73.9 - PERIPHERAL VASCULAR DISEASE, UNSPECIFIED SNOMED Code(s): 931299531 (2) Ischemic toe Current Visit: Yes Status: Acute Code(s): I99.8 - OTHER DISORDER OF CIRCULATORY SYSTEM SNOMED Code(s): 065319402 (3) Acute on chronic anemia Current Visit: Yes Status: Acute Code(s): D64.9 - ANEMIA, UNSPECIFIED SNOMED Code(s): 408446164 (4) GI hemorrhage Current Visit: Yes Status: Acute Code(s): K92.2 - GASTROINTESTINAL HEMORRHAGE, UNSPECIFIED SNOMED Code(s): 22497946 (5) Hypotension Current Visit: Yes Status: Acute Code(s): I95.9 - HYPOTENSION, UNSPECIFIED SNOMED Code(s): 95425617 (6) Abdominal mass Current Visit: No Status: Acute Code(s): R19.00 - INTRA-ABD AND PELVIC SWELLING, MASS AND LUMP, UNSP SITE SNOMED Code(s): 406023296 (7) S/P splenectomy Current Visit: Yes Status: Acute Code(s): Z90.81 - ACQUIRED ABSENCE OF SPLEEN SNOMED Code(s): 455574892 (8) Leukocytosis Current Visit: Yes Status: Acute Code(s): D72.829 - ELEVATED WHITE BLOOD CELL COUNT, UNSPECIFIED SNOMED Code(s): 218424135
[2019-10-11 12:14] LABS: Glucose,Whole Blood 185 mg/dL (75-99)
[2019-10-11] MEDS: HYDROmorphone 1 MG/ML 1 ML SYRINGE IVP PRN ×2 (14:06→23:35)
[2019-10-11 17:09] LABS: Glucose,Whole Blood 38 mg/dL (75-99)
[2019-10-11 17:09] LABS: Glucose,Whole Blood 148 mg/dL (75-99)
[2019-10-11] MEDS: FAT EMULSION 20% 250 ML in EMPTY BAG 1 BAG IV SCH (17:33)
[2019-10-11] MEDS: CEFEPIME 2 GM in SODIUM CHLORIDE 0.9% 100 ML IVPB SCH ×2 (17:34→19:59)
[2019-10-11] MEDS: metroNIDAZOLE-NS PMX 500 MG in SALINE 1 100ML.BAG IVPB SCH ×2 (17:55→23:36)
[2019-10-11] MEDS: MVI, ADULT NO.4 WITH VIT K 10 ML, TRACE (CONC-1ML/DOSE) 1 ML, PARENTERAL ELECTROLYTES 2... IV SCH ×4 (19:59)
--- NOTE | 2019-10-11 21:47 | P.PN ---
Progress Note - Text Progress Note Date: 10/11/19 Chief Complaint: Shortness of breath history of presenting complaint: This is a 63-year-old patient who follows with visiting physicians Dr. Vera.. Normally uses a wheelchair or a walker to get about. Chronic stable medical conditions include, coronary artery disease, COPD in an ex-smoker, chronic fibromyalgia, GERD, hyperlipidemia, essential hypertension, osteoarthritis, hypothyroid, chronic multiple sclerosis, peripheral neuropathy lower extremity, chronic urinary incontinence. Patient also was worked up at [facility] for a gastric greater curvature mass which eventually showed up to be normal smooth muscle cells. Also's chronic intermittent GI bleed from a gastric ulcer. Patient admitted to the hospital on August 06 with a diagnosis of bilateral lower extremity DVT. Could not tolerate IV heparin because of intermittent dark stools for some time. Did require blood transfusion. [place] filter was placed. Patient had repeated admissions for GI bleed. Getting blood transfusions. Continued to refuse endoscopy. Patient was now admitted 2 weeks ago again. On this occasion she agreed to proceed with endoscopy by Dr. Eliza Solis. Biopsy did come back showing gastric mucosa. She also consented for surgery. Patient now presents with shortness of breath. Continues to have dark stools. Hemoglobin came back at 5.1. Admitted to the ICU. Yesterday on October 07-patient was taken to the operating room. Partial gastrectomy and partial splenectomy was carried out. Patient was brought back to the ICU. Patient continued to have increasing bleeding for the ROSELIA drain. Became hypotensive. Patient received another 3 units of blood. Taken back to the operating room. Several oozing spors were noted around the staple site. Further suturing was carried out. Patient was returned to the ICU. Patient received a total of 7 units of blood. [id number]. Answered questions laying bed. Blood pressures running low. Remains on vasopressin and Jose Guadalupe-Synephrine drip. Edema present. ROSELIA drain still putting out serosanguineous stuff. Tired Review of systems: Was done for constitutional, cardiovascular, GI, pulmonary. relevant finding as above Active Medications Albuterol Sulfate (Ventolin Nebulized) 2.5 mg INHALATION RT-QID PRN PRN Reason: Shortness Of Breath Albuterol/Ipratropium (Duoneb 0.5 Mg-3 Mg/3 Ml Soln) 3 ml INHALATION RT-QID SID Last Admin: 10/11/19 20:11 Dose: 3 ml Documented by: Albuterol/Ipratropium (Duoneb 0.5 Mg-3 Mg/3 Ml Soln) 3 ml INHALATION RT-Q2H PRN PRN Reason: Shortness Of Breath Or Wheezing Amiodarone HCl (Cordarone) 100 mg PO DAILY [facility] Last Admin: 10/11/19 08:53 Dose: Not Given Documented by: Aripiprazole (Abilify) 10 mg PO DAILY [facility] Last Admin: 10/11/19 08:53 Dose: Not Given Documented by: Atorvastatin Calcium (Lipitor) 40 mg PO DAILY [facility] Last Admin: 10/11/19 08:53 Dose: Not Given Documented by: Baclofen (Lioresal) 20 mg PO TID PRN PRN Reason: Muscle Spasm Cholecalciferol (Vitamin D3 (25 Mcg = 1000 Iu)) 2,000 unit PO DAILY [facility] Last Admin: 10/11/19 08:53 Dose: Not Given Documented by: Citalopram Hydrobromide (Celexa) 20 mg PO DAILY [facility] Last Admin: 10/11/19 08:53 Dose: Not Given Documented by: Cyanocobalamin (Vitamin B-12) 1,000 mcg PO DAILY [facility] Last Admin: 10/11/19 08:53 Dose: Not Given Documented by: Folic Acid (Folic Acid) 1 mg PO DAILY [facility] Last Admin: 10/11/19 08:53 Dose: Not Given Documented by: Gabapentin (Neurontin) 300 mg PO TID [facility] Last Admin: 10/11/19 19:39 Dose: Not Given Documented by: Hydromorphone HCl (Dilaudid) 1 mg IVP Q1HR PRN PRN Reason: Severe Pain Last Admin: 10/11/19 14:06 Dose: 1 mg Documented by: Sodium Chloride (Saline 0.9%) 1,000 mls @ 50 mls/hr IV .Q20H [facility] Last Admin: 10/11/19 17:55 Dose: 50 mls/hr Documented by: Vasopressin 20 unit/ Sodium (Chloride) 51 mls @ 4.59 mls/hr IVPB .Q11H7M [facility] Last Admin: 10/11/19 12:18 Dose: 4.59 mls/hr Documented by: Norepinephrine Bitartrate 8 mg (/ Sodium Chloride) 258 mls @ 51.858 mls/hr IV .Q4H59M [facility]; Protocol Last Admin: 10/11/19 19:37 Dose: 0.06 mcg/kg/min, 7.779 mls/hr Documented by: Diltiazem HCl 125 mg/ Sodium (Chloride) 125 mls @ 0 mls/hr IV .Q0M [facility]; Protocol Last Titration: 10/10/19 11:00 Dose: 0 mls/hr, 0 mls/hr Documented by: Parenteral Vitamin Supplement 10 ml/ Chromium/Copper/Manganese/Seleni/Zn 1 ml/Parenteral Electrolytes 20 ml/Amino Acids/Dextrose 1,031 mls @ 55 mls/hr IV .[id number] [facility] Last Admin: 10/11/19 19:59 Dose: 55 mls/hr Documented by: Fat Emulsion Intravenous 250 (ml/ IV Solution) 250 mls @ 21 mls/hr IV DAILY@1800 [facility] Last Admin: 10/11/19 17:33 Dose: 21 mls/hr Documented by: Clindamycin Phosphate 600 mg/ (Dextrose/Water) 54 mls @ 50 mls/hr IVPB Q8HR [facility] Last Admin: 10/11/19 17:54 Dose: 50 mls/hr Documented by: Metronidazole 500 mg/ IV (Solution) 100 mls @ 100 mls/hr IVPB Q8HR [facility] Last Admin: 10/11/19 17:55 Dose: 100 mls/hr Documented by: Cefepime HCl 2 gm/ Sodium (Chloride) 100 mls @ 200 mls/hr IVPB Q12HR [facility] Last Admin: 10/11/19 19:59 Dose: 200 mls/hr Documented by: Insulin Aspart (Novolog) 0 unit SQ Q6HR [facility]; Protocol Last Admin: 10/11/19 17:57 Dose: 1 unit Documented by: Isosorbide Mononitrate (Imdur) 30 mg PO DAILY [facility] Last Admin: 10/11/19 08:54 Dose: Not Given Documented by: Levothyroxine Sodium (Synthroid) 100 mcg PO DAILY@0630 [facility] Last Admin: 10/11/19 06:44 Dose: 100 mcg Documented by: Loratadine (Claritin) 10 mg PO DAILY [facility] Last Admin: 10/11/19 08:54 Dose: Not Given Documented by: Lorazepam (Ativan) 0.5 mg PO Q4H PRN PRN Reason: Anxiety Last Admin: 10/09/19 23:56 Dose: 0.5 mg Documented by: Miscellaneous Information (Magnesium Per Protocol) 1 each MISCELLANE DAILY PRN; Protocol PRN Reason: Per Protocol Morphine Sulfate (Morphine Oral Doreen 2mg/Ml) 5 mg PO Q4H PRN PRN Reason: Pain Naloxone HCl (Narcan) 0.2 mg IV Q2M PRN PRN Reason: Opioid Reversal Last Admin: 10/08/19 16:57 Dose: 0.2 mg Documented by: Oxycodone/Acetaminophen (Percocet 5-325) 1 each PO Q8H PRN PRN Reason: Pain Last Admin: 10/08/19 11:54 Dose: 1 each Documented by: Pantoprazole Sodium (Protonix) 40 mg IVP BID [facility] Last Admin: 10/11/19 19:58 Dose: 40 mg Documented by: Promethazine HCl (Phenergan) 25 mg PO Q6HR PRN PRN Reason: Nausea And Vomiting Thiamine HCl (Vitamin B-1) 100 mg PO DAILY [facility] Last Admin: 10/11/19 08:54 Dose: Not Given Documented by: Physical examination: VITAL SIGNS: 97.1, 84, 17, 113/60, 1S [place] GENERAL: Propped up in bed, tired, EYES: Pupils equal. Conjunctiva pale HEENT: External appearance of nose and ears normal, oral cavity grossly normal. Slight puffiness of the right side cheek, with no tenderness-patient has no skin NECK: JVD not raised; masses not palpable. HEART: First and second heart sounds are normal; mild edema. LUNGS: Respiratory rate increased, decreased breath sounds. ABDOMEN: Soft, tender, dressing in place. ROSELIA drain-serosanguineous drainage, no guarding or rigidity, liver spleen not palpable, no masses palpable. PSYCH: Alert and oriented x3; mood and affect normal. INVESTIGATIONS, reviewed in the clinical context: White count 27.2 hemoglobin 13 potassium 3.4 creatinine 0.98 CRPs pulmonary to Previous testing: White count 8.7 hemoglobin 5.1 platelets 150 potassium 4.1 creatinine 0.65 lactic acid 2.3 Hemoglobin 8.7 on September 23 Assessment: -Acute on chronic GI bleed in a patient with known gastric mass - gastric mucosa per biopsy. Patient underwent partial gastrectomy and partial splenectomy on October 07. -Acute severe blood loss anemia from GI bleed, and postprocedure bleed-required a total of 7 units of blood -Acute hemorrhagic shock requiring norepinephrine and vasopressin-uncontrolled -Paroxysmal atrial fibrillation new-onset on Cardizem drip-then taken off -Chronic lower extremity DVT -with [place] filter on 08/10/2019 -Gastric ulcer disease -Rewsh-[id number] mass, workup done at [facility].-biopsy showing smooth muscle mass, also repeat biopsy done here showing the same. -Solitary gallstone, asymptomatic -Coronary artery disease -COPD in an ex-smoker -Chronic fibromyalgia -GERD -Hyperlipidemia -Essential hypertension -Primary osteoarthritis -Hypothyroid -Chronic multiple sclerosis -Peripheral neuropathy both the lower extremity -Chronic urinary incontinence -Chronic gait dysfunction uses a walker/wheelchair -[place] filter placed on August 09 -Type II lactic acidosis. No clinical evidence of sepsis. -Hypoalbuminemia-acute phase reactant. plan: on TPN and lipids. Also on IV cefepime, IV clindamycin. Had been on Cardizem drip. Also in IV Flagyl. Prognosis guarded. Discussed with the patient.
[2019-10-11 23:33] LABS: Glucose,Whole Blood 148 mg/dL (75-99)
[2019-10-12] MEDS: SODIUM CHLORIDE 0.9% 1,000 ML IV SCH ×2 (03:15→14:20)
[2019-10-12] MEDS: NOREPINEPHRINE 8 MG in SODIUM CHLORIDE 0.9% 250 ML IV SCH ×5 (03:15→21:47)
[2019-10-12 04:19] LABS: Anisocytosis Slight; HCT 32.4 % (34.0-46.0); HGB 10.7 gm/dL (11.4-16.0); Hypochromasia Marked; MCHC 32.8 g/dL (31.0-37.0); MCV 94.3 fL (80.0-100.0); Macrocytosis Slight; Mean Platelet Volume 10.2; Poikilocytosis Moderate; RBC 3.44 m/uL (3.80-5.40); RDW 17.8 % (11.5-15.5); WBC 32.8 k/uL (3.8-10.6)
[2019-10-12 04:27] LABS: African American GFR (CKD) >90 (>60 ml/min/1.73 sqM); Anion Gap 1 mmol/L; Blood Urea Nitrogen 29 mg/dL (7-17); Calcium 6.9 mg/dL (8.4-10.2); Carbon Dioxide 23 mmol/L (22-30); Chloride 115 mmol/L (98-107); Glucose 195 mg/dL (74-99); Magnesium 2.2 mg/dL (1.6-2.3); Non-African American GFR(CKD) 78 (>60 ml/min/1.73 sqM); Phosphorus 2.7 mg/dL (2.5-4.5); Potassium 3.1 mmol/L (3.5-5.1); Sodium 139 mmol/L (137-145)
[2019-10-12] MEDS ORDERED: Potassium Replacement Protocol 1 EACH MISC MISCELLANE PRN (04:30)
[2019-10-12] MEDS: POTASSIUM CHLORIDE 20 MEQ in WATER FOR INJECTION 1 100ML.BAG IVPB SCH ×4 (04:38→15:19)
[2019-10-12 04:46] LABS: Platelet Count 76 k/uL (150-450)
[2019-10-12 05:38] LABS: Glucose,Whole Blood 210 mg/dL (75-99)
[2019-10-12] MEDS: LEVOTHYROXINE 100 MCG TAB PO SCH (05:38)
[2019-10-12] MEDS: INSULIN ASPART (NovoLOG) 100 UNIT/ML VIAL SQ SCH ×4 (05:40→23:03)
[2019-10-12] MEDS: IPRATROPIUM-ALBUTEROL 3 ML NEB INHALATION SCH ×4 (07:44→20:34)
--- NOTE | 2019-10-12 08:14 | P.CONS ---
History of Present Illness - Reason for Consult Consult date: 10/11/19 Leukocytosis and postsplenectomy vaccines Requesting physician: Brit Taylor - Chief Complaint Abdominal pain and black stools x few days - History of Present Illness Patient is a 64-year-old female with recent diagnosis of gastric tumor presented to the hospital on 10/06/2019 for black melanotic stools patient was taken to the OR and status post partial gastrectomy and splenectomy for the gastric tumor patient has to taken back to the OR because of bleeding status post abdominal washout and control of the bleeders patient did have a normal white count on admission however her white count has jumped post surgery and is continued to be done for trending up to 27,000 today that prompted this infectious disease consultation, patient has been afebrile except a low-grade fever of 100.1 on 10/10/2019 patient chest x-ray has been mostly CHF pattern use has been negative patient was initially on cefazolin and body has been switched over to cefepime 1 g daily and clindamycin, patient is currently afebrile she is slightly weak and lethargic though was unable to provide some history denies having any headache nor URI symptoms no chest pain and some shortness of breath but no cough or abdominal pain is currently controlled with pain medication and no diarrhea Review of Systems Positive point has been mentioned in the HPI rest of the systems are negative Past Medical History Past Medical History: Coronary Artery Disease (CAD), Chest Pain / Angina, Heart Failure, COPD, Deep Vein Thrombosis (DVT), Eye Disorder, Fibromyalgia, GERD/Reflux, GI Bleed, Hyperlipidemia, Hypertension, Myocardial Infarction (AK), Musculoskeletal Disorder, Neurologic Disorder, Osteoarthritis (OA), Pneumonia, Respiratory Disorder, Skin Disorder, Thyroid Disorder, Vascular Disorder Additional Past Medical History / Comment(s): Pt recently admitted to [facility] on 09/15/19 with acute on chronic FI bleed with known gastric ulcer and acute blood loss anemia, one gallstone. Other hx: 11/2012 AK with cardiac arrest/vtach, AICD d/t cardiomyopathy/ Vtach, chronic respiratory failure-uses home O2 prn 2L/NC, tracheobronchitis, tricuspid regurgitation, multiple sclerosis, DVT ranjeet ateral legs with GFF, neuropathy bilateral legs/feet, chronic back pain, DDD, migraines, bilateral carpal tunnel syndrome, past L/R rib fractures, past L hip fracture with surgery, PUD with ulcer rupture with surgery, peritonitis, pancreatitis, IBS/ ulcerative colitis, chronic anemia, UTIs, urinary incontinence, endometriosis, hypothyroid, R cataract and L eye cataract forming again, PVD, L leg cellulitis, Last Myocardial Infarction Date:: 2012 History of Any Multi-Drug Resistant Organisms: ESBL Year Discovered:: 02/18/2014 MDRO Source:: Blood and Urine E. coli ESBL Past Surgical History: AICD, Appendectomy, Heart Catheterization, Heart Catheterization With Stent, Orthopedic Surgery, Pacemaker Additional Past Surgical History / Comment(s): Cardioversion, green field filter, laparotomy for ruptured gastric ulcer, R foot fracture with surgery, L hip fracture with surgery-has plate and screw, EGD, colonoscopies with benign polypectomy. Past Anesthesia/Blood Transfusion Reactions: No Reported Reaction Additional Past Anesthesia/Blood Transfusion Reaction / Comm: Pt has received blood in past without reaction. Date of Last Stent Placement:: 11/2012 Type of Cardiac Device: Permanent Pacemaker, AICD Device Placement Date:: 2012 Past Psychological History: Anxiety, Bipolar, Depression, Panic Disorder Smoking Status: Former smoker Past Alcohol Use History: None Reported Past Drug Use History: Marijuana - Past Family History Mother Family Medical History: Musculoskeletal Disorder Additional Family Medical History / Comment(s): MS Sister(s) Family Medical History: Myocardial Infarction (AK) Additional Family Medical History / Comment(s): SISTER ALSO HAS MS Brother(s) Family Medical History: Musculoskeletal Disorder, Neurologic Disorder Additional Family Medical History / Comment(s): MS Father Additional Family Medical History / Comment(s): ETOH abuse, back surgery Medications and Allergies Home Medications Medication Instructions Recorded Confirmed Type Folic Acid 1 mg PO DAILY 04/08/14 10/07/19 History Thiamine [Vitamin B-1] 100 mg PO DAILY 04/13/15 10/07/19 History Cholecalciferol (Vitamin D3) 2,000 unit PO DAILY 09/27/18 10/07/19 History [Vitamin D3] Ferrous Sulfate [Iron (65 MG 325 mg PO BID 09/27/18 10/07/19 History Elemental)] Levothyroxine Sodium [Synthroid] 100 mcg PO DAILY 09/27/18 10/07/19 History Atorvastatin [Lipitor] 40 mg PO DAILY #30 tab 09/28/18 10/07/19 Rx Isosorbide Mononitrate ER [Imdur] 30 mg PO DAILY 02/06/19 10/07/19 History Albuterol Sulfate [Proair Hfa] 2 puff INHALATION RT-QID PRN 03/16/19 10/07/19 History Omeprazole 40 mg PO BID 03/16/19 10/07/19 History Gabapentin [Neurontin] 300 mg PO TID #9 cap 04/02/19 10/07/19 Rx Baclofen [Lioresal] 20 mg PO TID PRN 08/07/19 10/07/19 History Cyanocobalamin [Vitamin B-12] 1,000 mcg PO DAILY #30 tab 08/11/19 10/07/19 Rx Albuterol Nebulized [Ventolin 2.5 mg INHALATION RT-QID PRN 09/06/19 10/07/19 History Nebulized] Amiodarone HCl [Pacerone] 100 mg PO DAILY 09/06/19 10/07/19 History Ipratropium-Albuterol Nebulize 3 ml INHALATION RT-Q4H 09/06/19 10/07/19 History [Duoneb 0.5 mg-3 mg/3 ml Soln] oxyCODONE-APAP 5-325MG [Percocet 1 tab PO Q8H PRN 09/06/19 10/07/19 History 5-325 mg] ARIPiprazole [Abilify] 10 mg PO DAILY 09/07/19 10/07/19 History Citalopram Hydrobromide [CeleXA] 20 mg PO DAILY 09/07/19 10/07/19 History Fexofenadine HCl [Genet Allergy] 180 mg PO DAILY 09/15/19 10/07/19 History Haloperidol Oral Soln [Haldol Oral 1 mg PO Q6H PRN 10/07/19 10/07/19 History Soln] LORazepam [Ativan] 0.5 mg PO Q4H PRN 10/07/19 10/07/19 History MORPHINE ORAL CK CONC 20mg/mL 5 mg PO Q4H PRN 10/07/19 10/07/19 History [Roxanol Oral Soln Conc 20MG/ML] Allergies Allergy/AdvReac Type Severity Reaction Status Date / Time Penicillins Allergy Swelling/facial Verified 06/29/20 08:47 numbness Physical Exam Vitals: Vital Signs Temp Pulse Resp BP Pulse Ox 10/11/19 13:00 86 20 10/11/19 12:00 87 22 10/11/19 11:13 93 10/11/19 11:05 90 10/11/19 11:00 89 21 10/11/19 10:00 89 17 10/11/19 09:00 86 20 10/11/19 08:00 96.5 F L 94 21 10/11/19 07:23 95 10/11/19 07:13 93 10/11/19 07:00 96 22 77/35 60 L 10/11/19 06:00 96 25 H 77/35 95 10/11/19 05:00 96 21 95 10/11/19 04:00 98.7 F 100 25 H 96/21 75 L 10/11/19 03:00 100 24 96/21 10/11/19 02:00 101 H 21 96/21 97 10/11/19 01:00 101 H 20 10/11/19 00:00 99.0 F 102 H 25 H 10/10/19 23:30 105 H 24 10/10/19 23:00 105 H 21 69 L 10/10/19 22:00 105 H 23 10/10/19 21:15 108 H 10/10/19 21:07 104 H 10/10/19 21:00 105 H 22 10/10/19 20:00 98.2 F 109 H 28 H 72 L 10/10/19 19:00 102 H 15 89 L 10/10/19 18:00 107 H 19 10/10/19 17:00 108 H 20 10/10/19 16:15 109 H 10/10/19 16:05 105 H 10/10/19 16:00 99.9 F H 106 H 23 Intake and Output 10/11/19 10/11/19 10/11/19 06:59 14:59 22:59 Intake Total 724 839.285 Output Total 455 545 Balance 269 294.285 Intake: IV 724 708 Cefepime 1 gm In Sodium 50 Chloride 0.9% 50 ml @ 100 mls/hr IVPB Q12HR [facility] Rx #:[id number] Mag 100 100 Mvi, Adult No.4 with Vit 90 K 10 ml Trace (Conc-1Ml/ Dose) 1 ml Parenteral Electrolytes 20 ml In Amino Acid 5%-D15w 1,000 ml @ 30 mls/hr IV .Q24H ONE Rx#:[id number] Pressure Bag 24 18 Sodium Chloride 0.9% 1, 600 450 000 ml @ 100 mls/hr IV . Q10H [facility] Rx#:[id number] Intake, IV Titration 131.285 Amount Norepinephrine 8 mg In 131.285 Sodium Chloride 0.9% 250 ml @ 0.4 MCG/KG/MIN 51. 858 mls/hr IV .Q4H59M [facility] Rx#:[id number] Output: Drainage 160 100 Abdomen 160 100 Urine 295 445 Other: Voiding Method Indwelling Catheter Indwelling Catheter Weight 75.3 kg 75.3 kg ABP, PAP, CO, CI - Last 8 Hours Arterial Blood Pressure 96/45 Arterial Blood Pressure 100/52 Arterial Blood Pressure 100/50 Arterial Blood Pressure 103/53 Arterial Blood Pressure 92/48 Arterial Blood Pressure 100/53 GENERAL DESCRIPTION: Middle-aged female lying in bed, no distress. No tachypnea or accessory muscle of respiration use. HEENT: Shows Pallor , no scleral icterus. Oral mucous membrane is dry. No pharyngeal erythema or thrush NECK: Trachea central, no thyromegaly. LUNGS: Unlabored breathing. Clear to auscultation anteriorly. No wheeze or crackle. HEART: S1, S2, regular rate and rhythm. No loud murmur ABDOMEN: Soft, mild tenderness , no guarding or rigidity, no organomegaly EXTREMITIES: No edema of feet. SKIN: No rash, no masses palpable. NEUROLOGICAL: The patient is awake, alert, oriented x3, mood and affect normal. Results CBC & Chem 7: 10/12/19 03:55 10/12/19 03:55 Labs: Abnormal Lab Results - Last 24 Hours (Table) 10/07/19 10/10/19 10/11/19 Range/Units 00:31 15:55 00:10 WBC (3.8-10.6) k/uL RBC (3.80-5.40) m/uL Hct (34.0-46.0) % MCH (25.0-35.0) pg MCHC (31.0-37.0) g/dL RDW (11.5-15.5) % Plt Count (150-450) k/uL Neutrophils # (Manual) (1.3-7.7) k/uL Lymphocytes # (Manual) (1.0-4.8) k/uL Monocytes # (Manual) (0-1.0) k/uL Metamyelocytes # (Man) (0) k/uL Nucleated RBCs (0-0) /100 WBC Potassium (3.5-5.1) mmol/L Chloride (98-107) mmol/L Carbon Dioxide (22-30) mmol/L BUN (7-17) mg/dL Glucose (74-99) mg/dL POC Glucose (mg/dL) 133 H (75-99) mg/dL Calcium (8.4-10.2) mg/dL Phosphorus 4.7 H (2.5-4.5) mg/dL Magnesium 1.4 L (1.6-2.3) mg/dL Crossmatch See Detail 10/11/19 10/11/19 10/11/19 Range/Units 04:12 04:12 12:12 WBC 27.2 H (3.8-10.6) k/uL RBC 3.57 L (3.80-5.40) m/uL Hct 33.0 L (34.0-46.0) % MCH 36.4 H (25.0-35.0) pg MCHC 39.4 H (31.0-37.0) g/dL RDW 18.0 H (11.5-15.5) % Plt Count 142 L (150-450) k/uL Neutrophils # (Manual) 25.80 H (1.3-7.7) k/uL Lymphocytes # (Manual) 0.27 L (1.0-4.8) k/uL Monocytes # (Manual) 1.09 H (0-1.0) k/uL Metamyelocytes # (Man) 0.27 H (0) k/uL Nucleated RBCs 8 H (0-0) /100 WBC Potassium 3.4 L (3.5-5.1) mmol/L Chloride 114 H (98-107) mmol/L Carbon Dioxide 19 L (22-30) mmol/L BUN 27 H (7-17) mg/dL Glucose 184 H (74-99) mg/dL POC Glucose (mg/dL) 185 H (75-99) mg/dL Calcium 6.8 L (8.4-10.2) mg/dL Phosphorus (2.5-4.5) mg/dL Magnesium (1.6-2.3) mg/dL Crossmatch Microbiology - Last 24 Hours (Table) 10/08/19 21:23 Gram Stain - Final Sputum Sputum Culture - Final Assessment and Plan Assessment: 1-patient with significant leukocytosis in this patient admitted to the hospital with a GI bleed been taken to the OR and status post partial gastrectomy and splenectomy with a revisit to OR for bleeding in this patient with no significant fever Could be reactive to her splenectomy however underlying abdominal infection not entirely excluded As currently no other obvious focus of infection 2-patient with penicillin ALLERGY that would limit the number of antibiotics safe to use 3-patient is post splenectomy and will require vaccination against pneumococcus Haemophilus and meningococcus day 14 of her surgery (1) Penicillin allergy Current Visit: Yes Status: Acute Code(s): Z88.0 - ALLERGY STATUS TO PENICILLIN SNOMED Code(s): 04539471 (2) Leukocytosis Current Visit: Yes Status: Acute Code(s): D72.829 - ELEVATED WHITE BLOOD CELL COUNT, UNSPECIFIED SNOMED Code(s): 641250588 (3) S/P splenectomy Current Visit: Yes Status: Acute Code(s): Z90.81 - ACQUIRED ABSENCE OF SPLEEN SNOMED Code(s): 076145244 Plan: 1- we will increase cefepime 2 g every 12 hours 2-discontinue clindamycin and Flagyl 500 every 8 hour 3-we'll discuss with the pharmacy to arrange for vaccination against Haemophilus meningococcus and pneumococcus on October 21 We will follow on clinical condition and cultures to further adjust medication if needed Thank you for this consultation will follow this patient with you
[2019-10-12] MEDS: metroNIDAZOLE-NS PMX 500 MG in SALINE 1 100ML.BAG IVPB SCH ×3 (08:28→23:04)
[2019-10-12] MEDS: PANTOPRAZOLE 40 MG/10 ML VIAL IVP SCH ×2 (08:32→20:22)
[2019-10-12] MEDS ORDERED: CEFEPIME 1 GM in SODIUM CHLORIDE 0.9% 50 ML IVPB SCH (09:00)
[2019-10-12] MEDS ORDERED: ANIDULAFUNGIN 200 MG in SODIUM CHLORIDE 0.9% 200 ML IVPB ONE (09:00)
[2019-10-12] MEDS: ARIPiprazole 10 MG TAB PO SCH (09:14)
[2019-10-12] MEDS: ATORVASTATIN 40 MG TAB PO SCH (09:14)
[2019-10-12] MEDS: CHOLECALCIFEROL 1,000 UNIT TAB PO SCH (09:14)
[2019-10-12] MEDS: AMIODARONE 100 MG TAB PO SCH (09:14)
[2019-10-12] MEDS: CITALOPRAM HYDROBROMIDE 20 MG TAB PO SCH (09:14)
[2019-10-12] MEDS: ISOSORBIDE MONONITRATE ER 30 MG TAB.ER.24H PO SCH (09:15)
[2019-10-12] MEDS: THIAMINE 100 MG TAB PO SCH (09:15)
[2019-10-12] MEDS: FOLIC ACID 1 MG TAB PO SCH (09:15)
[2019-10-12] MEDS: CYANOCOBALAMIN 500 MCG TAB PO SCH (09:15)
[2019-10-12] MEDS: LORATADINE 10 MG TAB PO SCH (09:15)
[2019-10-12] MEDS: GABAPENTIN 300 MG CAP PO SCH ×3 (09:15→19:52)
[2019-10-12] MEDS: FUROSEMIDE 10 MG/ML 4 ML VIAL IV SCH ×2 (10:09→20:22)
[2019-10-12] MEDS: CEFEPIME 2 GM in SODIUM CHLORIDE 0.9% 100 ML IVPB SCH ×2 (10:22→20:22)
[2019-10-12 11:54] LABS: Glucose,Whole Blood 193 mg/dL (75-99)
[2019-10-12] MEDS: SODIUM CHLORIDE 0.9% 50 ML with VASOPRESSIN 20 UNIT IVPB SCH ×4 (12:04→20:44)
--- NOTE | 2019-10-12 12:35 | P.PN ---
Subjective Progress Note Date: 10/12/19 Principal diagnosis: Upper GI bleeding This is a 64-year-old female with history of multiple medical problems, she was recently inpatient for upper GI bleeding secondary to stomach mass. Workup including EGD and biopsy of the mass was basically nondiagnostic. Patient came into the ER yesterday complaining of shortness of breath, and also complaining of melanotic stools. Denies any abdominal pain, denies any cough, no wheezing, no fever, no chills, no hemoptysis. Patient was noted to have extremely low hemoglobin of 5.1. Patient was also noted to have low sodium of 129. And positive occult blood. Considering her extremely low hemoglobin, patient was admitted, started on blood transfusion, she received so far 1 unit of packed RBCs, and we were asked to see her on consultation because the patient was admitted to the ICU. GI consultation is pending. Patient was recently discharged from the hospital on 09/24/19, she had multiple admissions for GI bleeding, and on her last admission she underwent EGD and she was found to have a gastric mass. Tissue biopsy has been negative for malignancy. She was seen at the time by surgery, and recommended that the patient gets transferred to a tertiary care center. And her primary care physician was notified by the [facility] physician that the patient will eventually need to be transferred to a tertiary care center like [facility]. Apparently this was never done. Patient is not on any anti-coagulation therapy. She is not on any blood thinners. I saw the patient in the ICU, and she seemed to be hemodynamically stable. She received already 1 unit of packed RBCs, and she is to receive another unit in the next hour or so. Patient is on 2 L nasal cannula, she has IV fluid at [facility] but I will increase the IV fluid to 75 mL per hour. She was noted to have swelling of her lower extremities, and redness with cellulitis of lower extremities. Hence I recommended ultrasound of lower extremities and raudel mmended. Patient was reevaluated today on 10/08/19, remains in the ICU, patient is scheduled to undergo partial gastrectomy today. This will be done by Dr. Chauhan. Yesterday the patient was diagnosed as having deep vein thrombosis, and we later determined that the patient already had a Col[place] filter placement in the past. Hence the patient will be cleared for surgical intervention by general surgery today for partial gastrectomy. Patient received a total of 2 units of packed RBCs since admission, hemoglobin today is 7.3, and I will give her another unit of blood before she goes down to the operating room. Her IV fluid is at KVO she is on 2 L nasal cannula with O2 saturation of 99%. Her urine output has been low overnight, and I increased her IV fluid maintenance today. Patient had 1 large brown bowel movement, no bleeding, and no abdominal pain. Her IV fluid was increased to 100 mL/h, and she will receive 1 unit of packed RBCs today. Patient was reevaluated today on 10/09/19, I saw this patient around 8 AM, yesterday, patient had a very carlos postoperative course. Shortly after she arrived to the ICU, patient developed worsening postoperative bleeding, this was quite extensive, patient received multiple units of packed RBCs, received fresh frozen plasma, she had to be reintubated, and her blood pressure was low. Surgery was notified, patient was taken back to the operating room, and there was some evidence of generalized oozing. The bleeding was controlled in the operating room. Patient came back to the ICU on mechanical ventilation, and she remains on fluids, she is on norepinephrine at 0.5 mcg/kg/m, she is on assist control rate of 2410 volume of 325 FiO2 50% and PEEP of 5. ABG this morning showed a pO2 of 122 pCO2 of 42 pH of 7.31. Urine output is marginal, hence I recommended a dose of Lasix 60 mg IV push. Chest x-ray showed evidence of atelectasis, possible infiltrate in the left lower lobe, but clinically the findings are mostly findings of atelectasis in the left lower lobe. Patient was given a weaning trial with CPAP, and she seemed to tolerate that weaning trial fairly well. Hence I recommended extubating the patient. Labs were all reviewed, chest x-ray was reviewed, and the operative reports from surgery were reviewed. Hemoglobin today is 12.6. WBC count is 18.2. Platelets are 51,000. Electrolytes are normal renal profile is normal in spite of the fact the patient may have sustained some acute tubular necrosis or acute kidney injury, but not seen on her labs today yet. Again her urine output is poor but she'll be given Lasix 1. Patient received significant amount of fluids and blood products yesterday after her initial surgery. Patient was reevaluated today on 10/10/19, remains in the ICU, patient developed hypotension last night, she also developed atrial fibrillation with RVR. Given Cardizem and placed on a Cardizem drip at 5 mg per hour. She also required placement on vasopressin, and norepinephrine. Her norepinephrine dose was as high as 0.6, and vasopressin at 0.04. Overnight the patient lost her arterial line, hence I was able to place a new femoral arterial line. Patient's ABG on 2 L nasal cannula showed a pO2 of 50 pCO2 of 36 pH of 7.27, hence I gave the patient 1 amp of bicarb, increase her FiO2 to 5 L. IV fluid is at 100 mL per hour, and I recommended Lasix 40 mg IV push 1, and I will cut down her IV fluid to KVO. Chest x-ray showed mild interstitial edema and bilateral pleural ef fusions. With atelectasis especially at the left base. Nurse taking care of the patient could not draw blood from her Cordis in the right cervical region, hence a triple-lumen catheter was placed today in the groin, and a right femoral arterial line was also placed. Today after arterial line was placed, noted that her blood pressure from the arterial line was much higher than what we were getting on the cough. Hence were able to titrate the norepinephrine down to 0.15. And were still tapering. Her vasopressin will be titrated later. And Cardizem was discontinued patient converted to normal sinus rhythm this morning. Electrolytes are normal bicarb is 17 however creatinine is 1.14. Hemoglobin is holding at 11.6. WBC count of 17.0 Patient was reevaluated today on 10/11/19, remains in the ICU. Remains on vasopressin at 0.04 units per minute, she is off norepinephrine. Her IV fluid is at 100 mL/h and I cut it down to 50 mL per hour she is on TPN at 3 0 mL/h. Urine output is excellent at 1 50 mL per hour. Patient is on room air, denies any shortness of breath, chest x-ray showed bibasilar interstitial edema or infiltrates. Hence I recommended cutting down her IV fluid, and I added empiric antibiotics in the form of clindamycin and cefepime. Patient is ALLERGIC to penicillin, considering the patient is diuresing and her own, I will not add Lasix at this point. But I will cut down her IV fluid and continue TPN. Patient is denying any shortness of breath, no cough, denies any nausea vomiting or abdominal pain. WBC count is 27.2 hemoglobin is 13 platelets are 142,000. Basic metabolic profile showed low potassium of 3.4 and normal renal profile. Patient was reevaluated today on 10/12/19, patient remains in the ICU, remains on 5 L nasal cannula. On norepinephrine at 0.08, she is also on vasopressin at 0.04, however when I evaluated the patient a blood pressure was excellent, and her mean was in the 90s. Recommended stopping norepinephrine. And to titrate the vasopressin as directed. Patient denies any specific complaints, she remains on Lasix at 40 mg every 12 hours, remains on Eraxis cefepime and on Flagyl. Patient is also on TPN. Overall the patient is doing better than expected. Pathology came back negative for malignancy. Except she was found to have nonviable omentum. White count today is rising 32.8 hemoglobin is 10.7. Platelets are 76,000. Direct was abnormal except for low potassium of 3.1 being corrected as per protocol. Objective - Vital Signs Vital signs: Vital Signs Temp 96.6 F L 10/12/19 08:00 Pulse 90 10/12/19 10:57 Resp 19 10/12/19 10:00 BP 96/32 10/12/19 10:00 Pulse Ox 60 L 10/11/19 07:00 Intake & Output 10/11/19 10/12/19 10/12/19 18:59 06:59 18:59 Intake Total 4825.271 1772.390 785.279 Output Total 1155 855 275 Balance 365.285 648.390 510.279 Weight 75.3 kg 77.7 kg Intake: IV 1389 1396 724 Anidulafungin 200 mg In 200 Sodium Chloride 0.9% 200 ml @ 84 mls/hr IVPB ONCE ONE Rx#:[id number] Cefepime 1 gm In Sodium 50 100 Chloride 0.9% 50 ml @ 100 mls/hr IVPB Q12HR [facility] Rx #:[id number] Cefepime 2 gm In Sodium 100 Chloride 0.9% 100 ml @ 200 mls/hr IVPB Q12HR [facility] Rx#:[id number] Mag 200 Mvi, Adult No.4 with Vit 300 K 10 ml Trace (Conc-1Ml/ Dose) 1 ml Parenteral Electrolytes 20 ml In Amino Acid 5%-D15w 1,000 ml @ 30 mls/hr IV .Q24H [facility] Rx#:[id number] Mvi, Adult No.4 with Vit 660 165 K 10 ml Trace (Conc-1Ml/ Dose) 1 ml Parenteral Electrolytes 20 ml In Amino Acid 5%-D15w 1,000 ml @ 55 mls/hr IV . [id number] [facility] Rx#:[id number] Pressure Bag 39 36 9 Sodium Chloride 0.9% 1, 800 600 150 000 ml @ 50 mls/hr IV . Q20H [facility] Rx#:[id number] metroNIDAZOLE-NS PMX 500 100 mg In Saline 1 100ml.bag @ 100 mls/hr IVPB Q8HR [facility] Rx#:[id number] Intake, IV Titration 131.285 107.390 61.279 Amount Norepinephrine 8 mg In 131.285 107.390 61.279 Sodium Chloride 0.9% 250 ml @ 0.4 MCG/KG/MIN 51. 858 mls/hr IV .Q4H59M [facility] Rx#:[id number] Output: Drainage 500 365 Abdomen 500 365 Urine 655 490 150 Stool 125 Other: Voiding Method Indwelling Catheter Indwelling Catheter Indwelling Catheter ABP, PAP, CO, CI - Last Documented Arterial Blood Pressure 90/70 - Exam GENERAL EXAM: Revealed 64-year-old white female, on 5 L nasal cannula. HEAD: Normocephalic/atraumatic. HEENT: PERRLA, EOMI, no icterus. Moist mucous membranes. No neck masses. No JVD. CHEST: No chest wall deformity. Symmetrical expansion. LUNGS: Minimal crackles at the bases, CVS: Normal S1 and S2, no S3 gallop. ABDOMEN: Postsurgical abdomen noted, dressing is clean, ROSELIA drain is noted to have serosanguineous drainage/minimal. EXTREMITIES: 2+ bipedal edema in both lower extremities, with faint erythema of both lower extremities, no tenderness. Good pulses bilaterally. MUSCULOSKELETAL: Muscle strength and tone normal. SKIN: Redness and swelling of both lower extremities. CENTRAL NERVOUS SYSTEM: Alert and oriented 3 , no focal deficits PSYCHIATRIC: Normal mood, blunt affect, normal mental status examination. - Labs CBC & Chem 7: 10/12/19 03:55 10/12/19 03:55 Labs: Abnormal Lab Results - Last 24 Hours (Table) 10/11/19 10/11/19 10/11/19 Range/Units 04:17 17:06 17:08 WBC (3.8-10.6) k/uL RBC (3.80-5.40) m/uL Hgb (11.4-16.0) gm/dL Hct (34.0-46.0) % RDW (11.5-15.5) % Plt Count (150-450) k/uL Potassium (3.5-5.1) mmol/L Chloride (98-107) mmol/L BUN (7-17) mg/dL Glucose (74-99) mg/dL POC Glucose (mg/dL) 38 L 148 H (75-99) mg/dL Calcium (8.4-10.2) mg/dL C-Reactive Protein 192.9 H (<10.0) mg/L 10/11/19 10/12/19 10/12/19 Range/Units 23:31 03:55 03:55 WBC 32.8 H (3.8-10.6) k/uL RBC 3.44 L (3.80-5.40) m/uL Hgb 10.7 L (11.4-16.0) gm/dL Hct 32.4 L (34.0-46.0) % RDW 17.8 H (11.5-15.5) % Plt Count 76 L (150-450) k/uL Potassium 3.1 L (3.5-5.1) mmol/L Chloride 115 H (98-107) mmol/L BUN 29 H (7-17) mg/dL Glucose 195 H (74-99) mg/dL POC Glucose (mg/dL) 148 H (75-99) mg/dL Calcium 6.9 L (8.4-10.2) mg/dL C-Reactive Protein (<10.0) mg/L 10/12/19 10/12/19 Range/Units 05:36 11:51 WBC (3.8-10.6) k/uL RBC (3.80-5.40) m/uL Hgb (11.4-16.0) gm/dL Hct (34.0-46.0) % RDW (11.5-15.5) % Plt Count (150-450) k/uL Potassium (3.5-5.1) mmol/L Chloride (98-107) mmol/L BUN (7-17) mg/dL Glucose (74-99) mg/dL POC Glucose (mg/dL) 210 H 193 H (75-99) mg/dL Calcium (8.4-10.2) mg/dL C-Reactive Protein (<10.0) mg/L Microbiology - Last 24 Hours (Table) 10/08/19 21:23 Gram Stain - Final Sputum Sputum Culture - Final Assessment and Plan Assessment: Status post partial gastrectomy and omentectomy for gastric bleeding, splenectomy, postoperative day #4. Acute upper GI bleeding, most likely from gastric mass, pathology is nondiagnostic for malignancy. Known history of coronary artery disease and previous coronary intervention and stenting Known history of gastric mass, previous biopsies were nondiagnostic. Acute on chronic anemia secondary to GI blood losses Chronic deep vein thrombosis of lower extremities. Patient had previous filter placement. Chronic systolic congestive heart failure secondary to LV dysfunction. Doubt aspiration pneumonia, but not entirely ruled out hence patient will be treated empirically with antibiotics. Paroxysmal atrial fibrillation, presently in normal sinus rhythm. History of multiple sclerosis History of peripheral neuropathy History of ventricular tachycardia and cardiac arrest History of peripheral vessel occlusive disease History of benign essential hypertension. History of fibromyalgia History of degenerative joint disease History of peripheral neuropathy History of ESBL infection History of anxiety and bipolar disorder History of AICD placement History of ulcerative colitis and irritable bowel syndrome Status post placement of right femoral arterial line and the right femoral triple-lumen catheter, postoperative day #0. Recommendation: Continue present supportive care measures. Continue Flagyl cefepime and Eraxis. Discontinue norepinephrine and titrate to vasopressin as directed. Continue diuretics. Continue GI and DVT prophylaxis. Continue TPN. Continue incentive spirometer. Not ready to be transferred out of the ICU as long as she is on pressors. We'll continue to follow up Time with Patient: Less than 30
--- NOTE | 2019-10-12 13:24 | P.PN ---
Subjective Progress Note Date: 10/12/19 CHIEF COMPLAINT: Gastrointestinal bleeding HISTORY OF PRESENT ILLNESS: The patient is a 64-year-old female status post partial gastrectomy and splenectomy for gastric tumor with takeback to the operating room same day, 10/08/2019. She is postoperative day 4. Whole blood cell count continues to elevate. Infectious disease consultation obtained. She denies any abdominal pain. She still in the intensive care unit. ROS: No reports of nausea and vomiting. No fevers or chills. No new chest christina n. PHYSICAL EXAM: VITAL SIGNS: Reviewed. Afebrile CONSTITUTIONAL: Well developed and in no acute distress. EYES: Conjuctivae without sclera icterus. Extraocular movements grossly intact. HEAD, EARS, NOSE, THROAT: Head is atraumatic, normocephalic. Hears conversational speech. No nasal drainage. NECK: Supple. RESPIRATORY: Non-labored respirations and equal bilateral excursions. CARDIOVASCULAR: Palpable 2+ radial pulses. ABDOMEN: Abdominal dressing clean dry and intact. ROSELIA serosanguineous. MUSCULOSKELETAL: No clubbing. Has mild cyanosis of the toes. Cool to touch. SKIN: Good skin turgor. NEUROLOGIC: Cranial nerves II through XII grossly intact. No focal or lateralizing signs. PSYCH: Slow affect. Alert and oriented person. CLINICAL LABS: White blood cell count from 17,000 to 27,000, now 32,800. Platelets increased from 41,000 to 142,000, now 76,000. PATHOLOGY: Benign gastric resection ASSESSMENT: 1. Status post splenectomy gastrectomy for gastric tumor with takeback for bleeding PLAN: 1. Appreciate infectious disease consultation including her postsplenectomy vaccinations for postoperative day 14. 2. Patient refused esophagram to proceed. Oral feedings on hold as result 3. Continue intensive care unit management 4. WBC continues to increase with start of antibiotics and antifungal Objective - Vital Signs Vital signs: Vital Signs Temp 96.2 F L 10/12/19 12:00 Pulse 89 10/12/19 12:00 Resp 19 10/12/19 12:00 BP 96/32 10/12/19 09:00 Pulse Ox 91 L 10/12/19 12:00 Intake & Output 10/11/19 10/12/19 10/12/19 18:59 06:59 18:59 Intake Total 2738.151 0786.390 1001.279 Output Total 5971 571 9374 Balance 365.285 648.390 -143.721 Weight 75.3 kg 77.7 kg Intake: IV 1389 1396 940 Anidulafungin 200 mg In 200 Sodium Chloride 0.9% 200 ml @ 84 mls/hr IVPB ONCE ONE Rx#:[id number] Cefepime 1 gm In Sodium 50 100 Chloride 0.9% 50 ml @ 100 mls/hr IVPB Q12HR [facility] Rx #:[id number] Cefepime 2 gm In Sodium 100 Chloride 0.9% 100 ml @ 200 mls/hr IVPB Q12HR [facility] Rx#:[id number] Mag 200 Mvi, Adult No.4 with Vit 300 K 10 ml Trace (Conc-1Ml/ Dose) 1 ml Parenteral Electrolytes 20 ml In Amino Acid 5%-D15w 1,000 ml @ 30 mls/hr IV .Q24H [facility] Rx#:[id number] Mvi, Adult No.4 with Vit 660 275 K 10 ml Trace (Conc-1Ml/ Dose) 1 ml Parenteral Electrolytes 20 ml In Amino Acid 5%-D15w 1,000 ml @ 55 mls/hr IV . [id number] [facility] Rx#:[id number] Pressure Bag 39 36 15 Sodium Chloride 0.9% 1, 800 600 250 000 ml @ 50 mls/hr IV . Q20H [facility] Rx#:[id number] metroNIDAZOLE-NS PMX 500 100 mg In Saline 1 100ml.bag @ 100 mls/hr IVPB Q8HR [facility] Rx#:[id number] Intake, IV Titration 131.285 107.390 61.279 Amount Norepinephrine 8 mg In 131.285 107.390 61.279 Sodium Chloride 0.9% 250 ml @ 0.4 MCG/KG/MIN 51. 858 mls/hr IV .Q4H59M [facility] Rx#:[id number] Output: Drainage 500 365 Abdomen 500 365 Urine 655 490 750 Stool 125 Other 270 Other: Voiding Method Indwelling Catheter Indwelling Catheter Indwelling Catheter ABP, PAP, CO, CI - Last Documented Arterial Blood Pressure 115/70 - Labs CBC & Chem 7: 10/12/19 03:55 10/12/19 17:50 Labs: Abnormal Lab Results - Last 24 Hours (Table) 10/11/19 10/11/19 10/11/19 Range/Units 04:17 17:06 17:08 WBC (3.8-10.6) k/uL RBC (3.80-5.40) m/uL Hgb (11.4-16.0) gm/dL Hct (34.0-46.0) % RDW (11.5-15.5) % Plt Count (150-450) k/uL Potassium (3.5-5.1) mmol/L Chloride (98-107) mmol/L BUN (7-17) mg/dL Glucose (74-99) mg/dL POC Glucose (mg/dL) 38 L 148 H (75-99) mg/dL Calcium (8.4-10.2) mg/dL C-Reactive Protein 192.9 H (<10.0) mg/L 10/11/19 10/12/19 10/12/19 Range/Units 23:31 03:55 03:55 WBC 32.8 H (3.8-10.6) k/uL RBC 3.44 L (3.80-5.40) m/uL Hgb 10.7 L (11.4-16.0) gm/dL Hct 32.4 L (34.0-46.0) % RDW 17.8 H (11.5-15.5) % Plt Count 76 L (150-450) k/uL Potassium 3.1 L (3.5-5.1) mmol/L Chloride 115 H (98-107) mmol/L BUN 29 H (7-17) mg/dL Glucose 195 H (74-99) mg/dL POC Glucose (mg/dL) 148 H (75-99) mg/dL Calcium 6.9 L (8.4-10.2) mg/dL C-Reactive Protein (<10.0) mg/L 10/12/19 10/12/19 10/12/19 Range/Units 05:36 11:51 12:15 WBC (3.8-10.6) k/uL RBC (3.80-5.40) m/uL Hgb (11.4-16.0) gm/dL Hct (34.0-46.0) % RDW (11.5-15.5) % Plt Count (150-450) k/uL Potassium 3.3 L (3.5-5.1) mmol/L Chloride (98-107) mmol/L BUN (7-17) mg/dL Glucose (74-99) mg/dL POC Glucose (mg/dL) 210 H 193 H (75-99) mg/dL Calcium (8.4-10.2) mg/dL C-Reactive Protein (<10.0) mg/L Assessment and Plan (1) Peripheral vascular occlusive disease Current Visit: Yes Status: Acute Code(s): I73.9 - PERIPHERAL VASCULAR DISEASE, UNSPECIFIED SNOMED Code(s): 872967246 (2) Ischemic toe Current Visit: Yes Status: Acute Code(s): I99.8 - OTHER DISORDER OF CIRCULATORY SYSTEM SNOMED Code(s): 678248605 (3) Acute on chronic anemia Current Visit: Yes Status: Acute Code(s): D64.9 - ANEMIA, UNSPECIFIED SNOMED Code(s): 942552646 (4) GI hemorrhage Current Visit: Yes Status: Acute Code(s): K92.2 - GASTROINTESTINAL HEMORRHAGE, UNSPECIFIED SNOMED Code(s): 20894471 (5) Hypotension Current Visit: Yes Status: Acute Code(s): I95.9 - HYPOTENSION, UNSPECIFIED SNOMED Code(s): 34461103 (6) Abdominal mass Current Visit: No Status: Acute Code(s): R19.00 - INTRA-ABD AND PELVIC SWELLING, MASS AND LUMP, UNSP SITE SNOMED Code(s): 506831018 (7) S/P splenectomy Current Visit: Yes Status: Acute Code(s): Z90.81 - ACQUIRED ABSENCE OF SPLEEN SNOMED Code(s): 974627802 (8) Leukocytosis Current Visit: Yes Status: Acute Code(s): D72.829 - ELEVATED WHITE BLOOD CELL COUNT, UNSPECIFIED SNOMED Code(s): 239862971
[2019-10-12] MEDS: HYDROmorphone 1 MG/ML 1 ML SYRINGE IVP PRN (14:34)
[2019-10-12] MEDS: MVI, ADULT NO.4 WITH VIT K 10 ML, TRACE (CONC-1ML/DOSE) 1 ML, POTASSIUM CHLORIDE 40 MEQ... IV SCH ×4 (14:41)
[2019-10-12] MEDS: MVI, ADULT NO.4 WITH VIT K 10 ML, TRACE (CONC-1ML/DOSE) 1 ML, PARENTERAL ELECTROLYTES 2... IV SCH ×4 (15:59)
--- NOTE | 2019-10-12 16:23 | P.PN ---
Progress Note - Text Progress Note Date: 10/12/19 Chief Complaint: Shortness of breath history of presenting complaint: This is a 63-year-old patient who follows with visiting physicians Dr. Vera.. Normally uses a wheelchair or a walker to get about. Chronic stable medical conditions include, coronary artery disease, COPD in an ex-smoker, chronic fibromyalgia, GERD, hyperlipidemia, essential hypertension, osteoarthritis, hypothyroid, chronic multiple sclerosis, peripheral neuropathy lower extremity, chronic urinary incontinence. Patient also was worked up at [facility] for a gastric greater curvature mass which eventually showed up to be normal smooth muscle cells. Also's chronic intermittent GI bleed from a gastric ulcer. Patient admitted to the hospital on August 06 with a diagnosis of bilateral lower extremity DVT. Could not tolerate IV heparin because of intermittent dark stools for some time. Did require blood transfusion. Merced filter was placed. Patient had repeated admissions for GI bleed. Getting blood transfusions. Continued to refuse endoscopy. Patient was now admitted 2 weeks ago again. On this occasion she agreed to proceed with endoscopy by Dr. Eliza Solis. Biopsy did come back showing gastric mucosa. She also consented for surgery. Patient now presents with shortness of breath. Continues to have dark stools. Hemoglobin came back at 5.1. Admitted to the ICU. Yesterday on October 07-patient was taken to the operating room. Partial gastrectomy and partial splenectomy was carried out. Patient was brought back to the ICU. Patient continued to have increasing bleeding for the ROSELIA drain. Became hypotensive. Patient received another 3 units of blood. Taken back to the operating room. Several oozing spors were noted around the staple site. Further suturing was carried out. Patient was returned to the ICU. Patient received a total of 7 units of blood. Nloor-PZI-[id number] bed remains tired. Answering questions. On levo fed and vasopressin drip. Some abdominal pain. Review of systems: Was done for constitutional, cardiovascular, GI, pulmonary. relevant finding as above Active Medications Albuterol Sulfate (Ventolin Nebulized) 2.5 mg INHALATION RT-QID PRN PRN Reason: Shortness Of Breath Albuterol/Ipratropium (Duoneb 0.5 Mg-3 Mg/3 Ml Soln) 3 ml INHALATION RT-QID SID Last Admin: 10/12/19 10:46 Dose: 3 ml Documented by: Albuterol/Ipratropium (Duoneb 0.5 Mg-3 Mg/3 Ml Soln) 3 ml INHALATION RT-Q2H PRN PRN Reason: Shortness Of Breath Or Wheezing Amiodarone HCl (Cordarone) 100 mg PO DAILY [facility] Last Admin: 10/12/19 09:14 Dose: Not Given Documented by: Aripiprazole (Abilify) 10 mg PO DAILY [facility] Last Admin: 10/12/19 09:14 Dose: Not Given Documented by: Atorvastatin Calcium (Lipitor) 40 mg PO DAILY [facility] Last Admin: 10/12/19 09:14 Dose: Not Given Documented by: Baclofen (Lioresal) 20 mg PO TID PRN PRN Reason: Muscle Spasm Cholecalciferol (Vitamin D3 (25 Mcg = 1000 Iu)) 2,000 unit PO DAILY [facility] Last Admin: 10/12/19 09:14 Dose: Not Given Documented by: Citalopram Hydrobromide (Celexa) 20 mg PO DAILY [facility] Last Admin: 10/12/19 09:14 Dose: Not Given Documented by: Cyanocobalamin (Vitamin B-12) 1,000 mcg PO DAILY [facility] Last Admin: 10/12/19 09:15 Dose: Not Given Documented by: Folic Acid (Folic Acid) 1 mg PO DAILY [facility] Last Admin: 10/12/19 09:15 Dose: Not Given Documented by: Furosemide (Lasix) 40 mg IV Q12HR [facility] Last Admin: 10/12/19 10:09 Dose: 40 mg Documented by: Gabapentin (Neurontin) 300 mg PO TID [facility] Last Admin: 10/12/19 15:20 Dose: Not Given Documented by: Hydromorphone HCl (Dilaudid) 1 mg IVP Q1HR PRN PRN Reason: Severe Pain Last Admin: 10/12/19 14:34 Dose: 1 mg Documented by: Sodium Chloride (Saline 0.9%) 1,000 mls @ 50 mls/hr IV .Q20H [facility] Last Admin: 10/12/19 14:20 Dose: 50 mls/hr Documented by: Vasopressin 20 unit/ Sodium (Chloride) 51 mls @ 4.59 mls/hr IVPB .Q11H7M [facility] Last Admin: 10/12/19 12:04 Dose: 4.59 mls/hr Documented by: Norepinephrine Bitartrate 8 mg (/ Sodium Chloride) 258 mls @ 51.858 mls/hr IV .Q4H59M [facility]; Protocol Last Admin: 10/12/19 14:05 Dose: Not Given Documented by: Diltiazem HCl 125 mg/ Sodium (Chloride) 125 mls @ 0 mls/hr IV .Q0M [facility]; Protocol Last Titration: 10/10/19 11:00 Dose: 0 mls/hr, 0 mls/hr Documented by: Fat Emulsion Intravenous 250 (ml/ IV Solution) 250 mls @ 21 mls/hr IV DAILY@1800 [facility] Last Admin: 10/11/19 17:33 Dose: 21 mls/hr Documented by: Metronidazole 500 mg/ IV (Solution) 100 mls @ 100 mls/hr IVPB Q8HR [facility] Last Admin: 10/12/19 16:01 Dose: 100 mls/hr Documented by: Anidulafungin 100 mg/ Sodium (Chloride) 100 mls @ 84 mls/hr IVPB DAILY [facility] Parenteral Vitamin Supplement 10 ml/ Chromium/Copper/Manganese/Seleni/Zn 1 ml/Potassium Chloride 40 meq/Amino Ac/Electrol/Dextrose/Calcium 1,031 mls @ 55 mls/hr IV .[id number] [facility] Last Admin: 10/12/19 14:41 Dose: 55 mls/hr Documented by: Cefepime HCl 2 gm/ Sodium (Chloride) 100 mls @ 200 mls/hr IVPB Q12HR SID Potassium Chloride 20 meq/ IV (Solution) 100 mls @ 50 mls/hr IVPB Q2H [facility]; Protocol Stop: 10/12/19 16:59 Last Admin: 10/12/19 15:19 Dose: 50 mls/hr Documented by: Insulin Aspart (Novolog) 0 unit SQ Q6HR [facility]; Protocol Last Admin: 10/12/19 12:03 Dose: 2 unit Documented by: Isosorbide Mononitrate (Imdur) 30 mg PO DAILY [facility] Last Admin: 10/12/19 09:15 Dose: Not Given Documented by: Levothyroxine Sodium (Synthroid) 100 mcg PO DAILY@0630 [facility] Last Admin: 10/12/19 05:38 Dose: Not Given Documented by: Loratadine (Claritin) 10 mg PO DAILY [facility] Last Admin: 10/12/19 09:15 Dose: Not Given Documented by: Lorazepam (Ativan) 0.5 mg PO Q4H PRN PRN Reason: Anxiety Last Admin: 10/09/19 23:56 Dose: 0.5 mg Documented by: Miscellaneous Information (Magnesium Per Protocol) 1 each MISCELLANE DAILY PRN; Protocol PRN Reason: Per Protocol Miscellaneous Information (Potassium Per Protocol) 1 each MISCELLANE DAILY PRN; Protocol PRN Reason: Per Protocol Morphine Sulfate (Morphine Oral Doreen 2mg/Ml) 5 mg PO Q4H PRN PRN Reason: Pain Naloxone HCl (Narcan) 0.2 mg IV Q2M PRN PRN Reason: Opioid Reversal Last Admin: 10/08/19 16:57 Dose: 0.2 mg Documented by: Oxycodone/Acetaminophen (Percocet 5-325) 1 each PO Q8H PRN PRN Reason: Pain Last Admin: 10/08/19 11:54 Dose: 1 each Documented by: Pantoprazole Sodium (Protonix) 40 mg IVP BID [facility] Last Admin: 10/12/19 08:32 Dose: 40 mg Documented by: Promethazine HCl (Phenergan) 25 mg PO Q6HR PRN PRN Reason: Nausea And Vomiting Thiamine HCl (Vitamin B-1) 100 mg PO DAILY [facility] Last Admin: 10/12/19 09:15 Dose: Not Given Documented by: Physical examination: VITAL SIGNS: 97.8, 84, 23, 122/69, 93% on 5 L GENERAL: Laying in bed,, tired, EYES: Pupils equal. Conjunctiva pale HEENT: External appearance of nose and ears normal, oral cavity grossly normal. Slight puffiness of the right side cheek, with no tenderness-patient has no skin NECK: JVD not raised; masses not palpable. HEART: First and second heart sounds are normal; mild edema. LUNGS: Respiratory rate increased, decreased breath sounds. ABDOMEN: Soft, tender, dressing in place. ROSELIA drain-serosanguineous drainage, no guarding or rigidity, liver spleen not palpable, no masses palpable. PSYCH: Alert and oriented x3; mood and affect normal. INVESTIGATIONS, reviewed in the clinical context: White count 32.8 hemoglobin 10.7 potassium 3.1 creatinine 0.8 Previous testing: White count 8.7 hemoglobin 5.1 platelets 150 potassium 4.1 creatinine 0.65 lact ic acid 2.3 Hemoglobin 8.7 on September 23 Assessment: -Acute on chronic GI bleed in a patient with known gastric mass - gastric mucosa per biopsy. Patient underwent partial gastrectomy and partial splenectomy on October 07. -Acute severe blood loss anemia from GI bleed, and postprocedure bleed-required a total of 7 units of blood -Acute hemorrhagic shock requiring norepinephrine and vasopressin-uncontrolled -Paroxysmal atrial fibrillation new-onset on Cardizem drip-then taken off -Chronic lower extremity DVT -with Merced filter on 08/10/2019 -Gastric ulcer disease -Solitary gallstone, asymptomatic -Coronary artery disease -COPD in an ex-smoker -Chronic fibromyalgia -GERD -Hyperlipidemia -Essential hypertension -Primary osteoarthritis -Hypothyroid -Chronic multiple sclerosis -Peripheral neuropathy both the lower extremity -Chronic urinary incontinence -Chronic gait dysfunction uses a walker/wheelchair -Hypoalbuminemia-acute phase reactant. -Worsening leukocytosis plan: -ID had been consulted. Patient is now on IV and I do not pungent, so 15 dose increased to 2 g every 12, TPN, lipids, IV Lasix IV Flagyl, IV vasopressin, IV levo fed. Discussed CODE STATUS with the patient. Patient wishes to remain full code. Prognosis guarded
[2019-10-12] MEDS: FAT EMULSION 20% 250 ML in EMPTY BAG 1 BAG IV SCH (17:56)
[2019-10-12 18:01] LABS: Glucose,Whole Blood 195 mg/dL (75-99)
--- NOTE | 2019-10-12 20:25 | PN ---
PROGRESS NOTE DATE OF SERVICE: 10/12/2019 REASON FOR FOLLOWUP: Leukocytosis. INTERVAL HISTORY: Patient is currently afebrile. The patient is hemodynamically slightly better compared to yesterday, off Levophed, still on the vasopressin. The patient denies having any chest pain. No shortness of breath or cough. No abdominal pain. Nausea but no vomiting and no diarrhea. PHYSICAL EXAMINATION: Blood pressure 105/62 with a pulse of 87, temperature 98.6. She is 91% on 5 L nasal cannula. General description is a middle-aged female lying in bed in no distress. Respiratory system: Unlabored breathing, clear to auscultation anteriorly. Heart S1, S2. Regular rate and rhythm. Abdomen is soft, mildly distended. No guarding, no rigidity. LABS: White count of 22.8, BUN of 29, creatinine 0.80. DIAGNOSTIC IMPRESSION AND PLAN: Patient with leukocytosis, likely multifactorial, possible ROSELIA drain as the patient did have a recent partial gastrectomy and splenectomy with concern for possible abdominal infection. Patient is covered with cefepime and Flagyl. We will add Eraxis in view of worsening of the white count and monitor clinical course closely. MMODL / IJN: [id number] /
[2019-10-12] MEDS: ENOXAPARIN 60 MG/0.6 ML SYRINGE SQ SCH (22:53)
[2019-10-12 23:03] LABS: Glucose,Whole Blood 204 mg/dL (75-99)
[2019-10-13] MEDS: NOREPINEPHRINE 8 MG in SODIUM CHLORIDE 0.9% 250 ML IV SCH ×4 (03:40→21:50)
[2019-10-13 04:57] LABS: Anisocytosis Slight; HCT 30.6 % (34.0-46.0); HGB 10.4 gm/dL (11.4-16.0); Hypochromasia Marked; MCH 32.1 pg (25.0-35.0); MCV 94.4 fL (80.0-100.0); Macrocytosis Slight; Mean Platelet Volume 11.1; Platelet Count 48 k/uL (150-450); Poikilocytosis Marked; RBC 3.24 m/uL (3.80-5.40); RDW 18.4 % (11.5-15.5)
[2019-10-13 05:08] LABS: African American GFR (CKD) >90 (>60 ml/min/1.73 sqM); Anion Gap 0 mmol/L; Blood Urea Nitrogen 32 mg/dL (7-17); Calcium 6.9 mg/dL (8.4-10.2); Carbon Dioxide 25 mmol/L (22-30); Chloride 115 mmol/L (98-107); Glucose 167 mg/dL (74-99); Magnesium 1.9 mg/dL (1.6-2.3); Non-African American GFR(CKD) 90 (>60 ml/min/1.73 sqM); Potassium 3.3 mmol/L (3.5-5.1); Sodium 140 mmol/L (137-145)
[2019-10-13] MEDS: LEVOTHYROXINE 100 MCG TAB PO SCH (05:23)
[2019-10-13 05:29] LABS: Glucose,Whole Blood 171 mg/dL (75-99)
[2019-10-13] MEDS: INSULIN ASPART (NovoLOG) 100 UNIT/ML VIAL SQ SCH ×3 (05:33→17:58)
[2019-10-13 05:41] LABS: Band Neutrophils % 8 %; Neutrophils % (M) 89 %; Nucleated Red Blood Cells 14 /100 WBC (0-0); Total Cells Counted 200
[2019-10-13 05:43] LABS: Lymphocytes # (M) 0.36 k/uL (1.0-4.8); Monocytes # (M) 1.07 k/uL (0-1.0); Polychromasia Present; Target Cells Present; WBC 35.8 k/uL (3.8-10.6)
[2019-10-13] MEDS: POTASSIUM CHLORIDE 20 MEQ in WATER FOR INJECTION 1 100ML.BAG IVPB SCH ×2 (05:57→08:18)
--- NOTE | 2019-10-13 07:23 | XR ---
EXAMINATION TYPE: XR chest 1V portable DATE OF EXAM: 10/13/2019 COMPARISON: 10/11/2019 HISTORY: Shortness of breath TECHNIQUE: Single frontal view of the chest is obtained. FINDINGS: Cardiac device noted. Bilateral consolidation and pleural effusion stable. No pneumothorax . Exam limited by patient rotation. Suggestion of a drain overlying the left upper quadrant. IMPRESSION: 1. Diffuse pleural-parenchymal changes are stable correlate for CHF versus diffuse pneumonia.
[2019-10-13] MEDS: SODIUM PHOSPHATE 10 MMOL in SODIUM CHLORIDE 0.9% 100 ML IVPB SCH ×2 (07:57→11:30)
[2019-10-13] MEDS: metroNIDAZOLE-NS PMX 500 MG in SALINE 1 100ML.BAG IVPB SCH ×2 (07:59→15:39)
[2019-10-13] MEDS: FUROSEMIDE 10 MG/ML 4 ML VIAL IV SCH ×2 (07:59→15:40)
[2019-10-13] MEDS: IPRATROPIUM-ALBUTEROL 3 ML NEB INHALATION SCH ×4 (08:01→19:13)
[2019-10-13] MEDS: FOLIC ACID 1 MG TAB PO SCH (08:10)
[2019-10-13] MEDS: GABAPENTIN 300 MG CAP PO SCH ×3 (08:10→21:35)
[2019-10-13] MEDS: CITALOPRAM HYDROBROMIDE 20 MG TAB PO SCH (08:10)
[2019-10-13] MEDS: ARIPiprazole 10 MG TAB PO SCH (08:10)
[2019-10-13] MEDS: CHOLECALCIFEROL 1,000 UNIT TAB PO SCH (08:10)
[2019-10-13] MEDS: AMIODARONE 100 MG TAB PO SCH (08:10)
[2019-10-13] MEDS: CYANOCOBALAMIN 500 MCG TAB PO SCH (08:10)
[2019-10-13] MEDS: ATORVASTATIN 40 MG TAB PO SCH (08:10)
[2019-10-13] MEDS: ISOSORBIDE MONONITRATE ER 30 MG TAB.ER.24H PO SCH (08:10)
[2019-10-13] MEDS: THIAMINE 100 MG TAB PO SCH (08:11)
[2019-10-13] MEDS: LORATADINE 10 MG TAB PO SCH (08:11)
[2019-10-13 08:31] LABS: ABG Base Excess -1.2 mmol/L; ABG HCO3 25 mmol/L (21-25); ABG Oxygen Saturation 72.3 % (94-97); ABG PCO2 52 mmHg (35-45); ABG TCO2 27 mmol/L (19-24); Allen Test Performed? Yes
[2019-10-13 08:33] LABS: ABG PO2 37 mmHg (83-108)
[2019-10-13] MEDS ORDERED: CISATRACURIUM 2 MG/ML 5 ML VIAL IV ONE (08:45)
[2019-10-13] MEDS ORDERED: propofoL 100 ML IV ONE (08:45)
[2019-10-13] MEDS ORDERED: SUCCINYLCHOLINE CHLORIDE VIAL 200 MG/10 ML VIAL IV ONE (08:47)
[2019-10-13] MEDS ORDERED: MORPHINE SULFATE 4 MG/ML SYRINGE ONE (08:48)
[2019-10-13] MEDS ORDERED: SUCCINYLCHOLINE CHLORIDE VIAL 200 MG/10 ML VIAL IV STA (08:50)
[2019-10-13] MEDS ORDERED: MORPHINE SULFATE 4 MG/ML SYRINGE IVP STA (08:50)
[2019-10-13] MEDS: PANTOPRAZOLE 40 MG/10 ML VIAL IVP SCH ×2 (09:30→21:34)
--- NOTE | 2019-10-13 09:30 | XR ---
EXAMINATION TYPE: XR chest 1V portable DATE OF EXAM: 10/13/2019 COMPARISON: 10/13/2019 HISTORY: Intubation TECHNIQUE: Single frontal view of the chest is obtained. FINDINGS: ET tube approximately 1.5 cm above diego. Diffuse pleural-parenchymal changes stable. Car diac device again noted surgical bernardo overlying the upper abdomen with possible surgical drain. Ar thropathy of the shoulders NG tube is seen only to the level of the GE junction. IMPRESSION: 1. ET tube 1.5 cm above diego. NG tube seen extending to the level of the GE junction. Consider adva ncing NG tube. 2. Stable diffuse pleural-parenchymal lung disease.
[2019-10-13] MEDS: CEFEPIME 2 GM in SODIUM CHLORIDE 0.9% 100 ML IVPB SCH ×2 (09:36→21:33)
[2019-10-13] MEDS: ANIDULAFUNGIN 100 MG in SODIUM CHLORIDE 0.9% 100 ML IVPB SCH (09:37)
[2019-10-13] MEDS: ENOXAPARIN 60 MG/0.6 ML SYRINGE SQ SCH ×2 (09:39→21:34)
[2019-10-13 09:47] LABS: ABG Base Excess -2.6 mmol/L; ABG HCO3 24 mmol/L (21-25); ABG PCO2 48 mmHg (35-45); ABG PH 7.31 (7.35-7.45); ABG PO2 106 mmHg (83-108); ABG TCO2 25 mmol/L (19-24); Allen Test Performed? Yes
[2019-10-13] MEDS: MVI, ADULT NO.4 WITH VIT K 10 ML, TRACE (CONC-1ML/DOSE) 1 ML, POTASSIUM CHLORIDE 60 MEQ... IV SCH ×6 (10:04)
[2019-10-13] MEDS: SODIUM CHLORIDE 0.9% 50 ML with VASOPRESSIN 20 UNIT IVPB SCH ×4 (10:56→21:50)
[2019-10-13] MEDS: MVI, ADULT NO.4 WITH VIT K 10 ML, TRACE (CONC-1ML/DOSE) 1 ML, POTASSIUM CHLORIDE 40 MEQ... IV SCH ×4 (11:01)
[2019-10-13 11:42] LABS: Glucose,Whole Blood 169 mg/dL (75-99)
--- NOTE | 2019-10-13 12:36 | P.PN ---
Subjective Progress Note Date: 10/13/19 Principal diagnosis: Upper GI bleeding This is a 64-year-old female with history of multiple medical problems, she was recently inpatient for upper GI bleeding secondary to stomach mass. Workup including EGD and biopsy of the mass was basically nondiagnostic. Patient came into the ER yesterday complaining of shortness of breath, and also complaining of melanotic stools. Denies any abdominal pain, denies any cough, no wheezing, no fever, no chills, no hemoptysis. Patient was noted to have extremely low hemoglobin of 5.1. Patient was also noted to have low sodium of 129. And positive occult blood. Considering her extremely low hemoglobin, patient was admitted, started on blood transfusion, she received so far 1 unit of packed RBCs, and we were asked to see her on consultation because the patient was admitted to the ICU. GI consultation is pending. Patient was recently discharged from the hospital on 09/24/19, she had multiple admissions for GI bleeding, and on her last admission she underwent EGD and she was found to have a gastric mass. Tissue biopsy has been negative for malignancy. She was seen at the time by surgery, and recommended that the patient gets transferred to a tertiary care center. And her primary care physician was notified by the [facility] physician that the patient will eventually need to be transferred to a tertiary care center like [facility]. Apparently this was never done. Patient is not on any anti-coagulation therapy. She is not on any blood thinners. I saw the patient in the ICU, and she seemed to be hemodynamically stable. She received already 1 unit of packed RBCs, and she is to receive another unit in the next hour or so. Patient is on 2 L nasal cannula, she has IV fluid at [facility] but I will increase the IV fluid to 75 mL per hour. She was noted to have swelling of her lower extremities, and redness with cellulitis of lower extremities. Hence I recommended ultrasound of lower extremities and raudel mmended. Patient was reevaluated today on 10/08/19, remains in the ICU, patient is scheduled to undergo partial gastrectomy today. This will be done by Dr. Chauhan. Yesterday the patient was diagnosed as having deep vein thrombosis, and we later determined that the patient already had a [place] filter placement in the past. Hence the patient will be cleared for surgical intervention by general surgery today for partial gastrectomy. Patient received a total of 2 units of packed RBCs since admission, hemoglobin today is 7.3, and I will give her another unit of blood before she goes down to the operating room. Her IV fluid is at KVO she is on 2 L nasal cannula with O2 saturation of 99%. Her urine output has been low overnight, and I increased her IV fluid maintenance today. Patient had 1 large brown bowel movement, no bleeding, and no abdominal pain. Her IV fluid was increased to 100 mL/h, and she will receive 1 unit of packed RBCs today. Patient was reevaluated today on 10/09/19, I saw this patient around 8 AM, yesterday, patient had a very carlos postoperative course. Shortly after she arrived to the ICU, patient developed worsening postoperative bleeding, this was quite extensive, patient received multiple units of packed RBCs, received fresh frozen plasma, she had to be reintubated, and her blood pressure was low. Surgery was notified, patient was taken back to the operating room, and there was some evidence of generalized oozing. The bleeding was controlled in the operating room. Patient came back to the ICU on mechanical ventilation, and she remains on fluids, she is on norepinephrine at 0.5 mcg/kg/m, she is on assist control rate of 2410 volume of 325 FiO2 50% and PEEP of 5. ABG this morning showed a pO2 of 122 pCO2 of 42 pH of 7.31. Urine output is marginal, hence I recommended a dose of Lasix 60 mg IV push. Chest x-ray showed evidence of atelectasis, possible infiltrate in the left lower lobe, but clinically the findings are mostly findings of atelectasis in the left lower lobe. Patient was given a weaning trial with CPAP, and she seemed to tolerate that weaning trial fairly well. Hence I recommended extubating the patient. Labs were all reviewed, chest x-ray was reviewed, and the operative reports from surgery were reviewed. Hemoglobin today is 12.6. WBC count is 18.2. Platelets are 51,000. Electrolytes are normal renal profile is normal in spite of the fact the patient may have sustained some acute tubular necrosis or acute kidney injury, but not seen on her labs today yet. Again her urine output is poor but she'll be given Lasix 1. Patient received significant amount of fluids and blood products yesterday after her initial surgery. Patient was reevaluated today on 10/10/19, remains in the ICU, patient developed hypotension last night, she also developed atrial fibrillation with RVR. Given Cardizem and placed on a Cardizem drip at 5 mg per hour. She also required placement on vasopressin, and norepinephrine. Her norepinephrine dose was as high as 0.6, and vasopressin at 0.04. Overnight the patient lost her arterial line, hence I was able to place a new femoral arterial line. Patient's ABG on 2 L nasal cannula showed a pO2 of 50 pCO2 of 36 pH of 7.27, hence I gave the patient 1 amp of bicarb, increase her FiO2 to 5 L. IV fluid is at 100 mL per hour, and I recommended Lasix 40 mg IV push 1, and I will cut down her IV fluid to KVO. Chest x-ray showed mild interstitial edema and bilateral pleural ef fusions. With atelectasis especially at the left base. Nurse taking care of the patient could not draw blood from her Cordis in the right cervical region, hence a triple-lumen catheter was placed today in the groin, and a right femoral arterial line was also placed. Today after arterial line was placed, noted that her blood pressure from the arterial line was much higher than what we were getting on the cough. Hence were able to titrate the norepinephrine down to 0.15. And were still tapering. Her vasopressin will be titrated later. And Cardizem was discontinued patient converted to normal sinus rhythm this morning. Electrolytes are normal bicarb is 17 however creatinine is 1.14. Hemoglobin is holding at 11.6. WBC count of 17.0 Patient was reevaluated today on 10/11/19, remains in the ICU. Remains on vasopressin at 0.04 units per minute, she is off norepinephrine. Her IV fluid is at 100 mL/h and I cut it down to 50 mL per hour she is on TPN at 3 0 mL/h. Urine output is excellent at 1 50 mL per hour. Patient is on room air, denies any shortness of breath, chest x-ray showed bibasilar interstitial edema or infiltrates. Hence I recommended cutting down her IV fluid, and I added empiric antibiotics in the form of clindamycin and cefepime. Patient is ALLERGIC to penicillin, considering the patient is diuresing and her own, I will not add Lasix at this point. But I will cut down her IV fluid and continue TPN. Patient is denying any shortness of breath, no cough, denies any nausea vomiting or abdominal pain. WBC count is 27.2 hemoglobin is 13 platelets are 142,000. Basic metabolic profile showed low potassium of 3.4 and normal renal profile. Patient was reevaluated today on 10/12/19, patient remains in the ICU, remains on 5 L nasal cannula. On norepinephrine at 0.08, she is also on vasopressin at 0.04, however when I evaluated the patient a blood pressure was excellent, and her mean was in the 90s. Recommended stopping norepinephrine. And to titrate the vasopressin as directed. Patient denies any specific complaints, she remains on Lasix at 40 mg every 12 hours, remains on Eraxis cefepime and on Flagyl. Patient is also on TPN. Overall the patient is doing better than expected. Pathology came back negative for malignancy. Except she was found to have nonviable omentum. White count today is rising 32.8 hemoglobin is 10.7. Platelets are 76,000. Direct was abnormal except for low potassium of 3.1 being corrected as per protocol. Patient was reevaluated today on 10/13/19, remains in the ICU, however the patient developed significant vasospasm and ischemic changes in the tips of her fingers bilaterally, right more so than left. Hence I recommended that the patient goes on Lovenox yesterday, I also recommended a vascular surgery evaluation. This morning, the patient is noted to be quite tachypneic, and ABG showed a pO2 of 37 pCO2 of 52 pH of 7.30. Could not establish a CODE STATUS with the patient because of her profound hypoxia and hypercapnia. Tried to reach family and discussed the CODE STATUS, no one could be reached. Hence I recommended intubating the patient and I did, patient was placed on mechanical ventilation. And she is presently on FiO2 of 80%, tidal volume is 09/10/1949 assist-control rate of 22 and PEEP of 5. Repeat ABG showed a pO2 of 106 he CO2 of 48 pH of 7.31. Chest x-ray post intubation showed the endotracheal tube about to see him above the diego, the orogastric tube is in the GE junction, and the chest x-ray showed diffuse bilateral interstitial infiltrates. And suspect some component of interstitial edema. Patient had to be placed back on vasopressin and presently on 0.01 units per minute, she is also on norepinephrine at 0.03 mcg/kg/m. Propofol is at 20 mcg/kg/m, IV fluid is at KVO, TPN is at 55 mL per hour. Lasix was increased to 40 mg IV push every 12 hours, Lovenox will remain the same at 60 mg subcu every 12 hours. Otherwise he'll continue present supportive care measures. WBC count remains elevated at 35.8 hemoglobin is 10.4. Basic metabolic profile is normal except for low potassium being corrected as per protocol. Objective - Vital Signs Vital signs: Vital Signs Temp 97 F L 10/13/19 12:00 Pulse 76 10/13/19 12:00 Resp 22 10/13/19 12:00 BP 84/56 10/13/19 10:15 Pulse Ox 93 L 10/13/19 12:00 Intake & Output 10/12/19 10/13/19 10/13/19 18:59 06:59 18:59 Intake Total 9451.907 4103 1229 Output Total 2855 2075 895 Balance -884.721 -427 334 Weight 77.3 kg Intake: IV 1909 1548 971 Anidulafungin 100 mg In 100 Sodium Chloride 0.9% 100 ml @ 84 mls/hr IVPB DAILY SID Rx#:[id number] Anidulafungin 200 mg In 200 100 Sodium Chloride 0.9% 200 ml @ 84 mls/hr IVPB ONCE ONE Rx#:[id number] Cefepime 2 gm In Sodium 100 Chloride 0.9% 100 ml @ 200 mls/hr IVPB Q12HR SID Rx#:[id number] Fat Emulsion 20% 250 ml 21 252 21 In Empty Bag 1 bag @ 21 mls/hr IV DAILY@1800 SID Rx#:[id number] Mvi, Adult No.4 with Vit 605 660 275 K 10 ml Trace (Conc-1Ml/ Dose) 1 ml Parenteral Electrolytes 20 ml In Amino Acid 5%-D15w 1,000 ml @ 55 mls/hr IV . [id number] SID Rx#:[id number] Potassium Chloride 20 meq 200 In Water For Injection 1 100ml.bag @ 50 mls/hr IVPB Q2H SID Rx#: [id number] Potassium Chloride 20 meq 100 In Water For Injection 1 100ml.bag @ 50 mls/hr IVPB Q2H SID Rx#: [id number] Pressure Bag 33 36 15 Sodium Chloride 0.9% 1, 550 600 160 000 ml @ 20 mls/hr IV . Q24H SID Rx#:[id number] Sodium Phosphate 10 mmol 100 In Sodium Chloride 0.9% 100 ml @ 50 mls/hr IVPB Q2H SID Rx#:[id number] metroNIDAZOLE-NS PMX 500 200 100 mg In Saline 1 100ml.bag @ 100 mls/hr IVPB Q8HR SID Rx#:[id number] Intake, IV Titration 61.279 100 258 Amount Norepinephrine 8 mg In 61.279 258 Sodium Chloride 0.9% 250 ml @ 0.4 MCG/KG/MIN 51. 858 mls/hr IV .Q4H59M SID Rx#:[id number] Potassium Chloride 20 meq 100 In Water For Injection 1 100ml.bag @ 50 mls/hr IVPB Q2H SID Rx#: [id number] Output: Drainage 170 Abdomen 170 Urine 2050 1615 725 Stool 125 Other 680 460 Other: Voiding Method Indwelling Catheter Indwelling Catheter Indwelling Catheter ABP, PAP, CO, CI - Last Documented Arterial Blood Pressure 97/55 - Exam GENERAL EXAM: Revealed 64-year-old white female, high flow nasal cannula, however she was intubated shortly after. HEAD: Normocephalic/atraumatic. HEENT: PERRLA, EOMI, no icterus. Moist mucous membranes. No neck masses. No JVD. CHEST: No chest wall deformity. Symmetrical expansion. LUNGS: Fine crackles at the bases persists. CVS: Normal S1 and S2, no S3 gallop. ABDOMEN: Postsurgical abdomen noted, dressing is clean, ROSELIA drain is noted to have serosanguineous drainage/minimal. EXTREMITIES: 2+ bipedal edema in both lower extremities, with faint erythema of both lower extremities, no tenderness. Good pulses bilaterally. MUSCULOSKELETAL: Muscle strength and tone normal. SKIN: Redness and swelling of both lower extremities. CENTRAL NERVOUS SYSTEM: Arousable, follows simple instructions, but confused, and does not seem to be oriented 3. Drifts asleep easily after arousing the p atient. PSYCHIATRIC: Could not be assessed. - Labs CBC & Chem 7: 10/13/19 04:45 10/13/19 04:45 Labs: Abnormal Lab Results - Last 24 Hours (Table) 10/12/19 10/12/19 10/12/19 Range/Units 12:15 17:51 23:01 WBC (3.8-10.6) k/uL RBC (3.80-5.40) m/uL Hgb (11.4-16.0) gm/dL Hct (34.0-46.0) % RDW (11.5-15.5) % Plt Count (150-450) k/uL Neutrophils # (Manual) (1.3-7.7) k/uL Lymphocytes # (Manual) (1.0-4.8) k/uL Monocytes # (Manual) (0-1.0) k/uL Nucleated RBCs (0-0) /100 WBC ABG pH (7.35-7.45) ABG pCO2 (35-45) mmHg ABG pO2 (83-108) mmHg ABG Total CO2 (19-24) mmol/L ABG O2 Saturation (94-97) % Potassium 3.3 L (3.5-5.1) mmol/L Chloride (98-107) mmol/L BUN (7-17) mg/dL Glucose (74-99) mg/dL POC Glucose (mg/dL) 195 H 204 H (75-99) mg/dL Calcium (8.4-10.2) mg/dL Phosphorus (2.5-4.5) mg/dL 10/13/19 10/13/19 10/13/19 Range/Units 04:45 04:45 05:28 WBC 35.8 H (3.8-10.6) k/uL RBC 3.24 L (3.80-5.40) m/uL Hgb 10.4 L (11.4-16.0) gm/dL Hct 30.6 L (34.0-46.0) % RDW 18.4 H (11.5-15.5) % Plt Count 48 L (150-450) k/uL Neutrophils # (Manual) 34.70 H (1.3-7.7) k/uL Lymphocytes # (Manual) 0.36 L (1.0-4.8) k/uL Monocytes # (Manual) 1.07 H (0-1.0) k/uL Nucleated RBCs 14 H (0-0) /100 WBC ABG pH (7.35-7.45) ABG pCO2 (35-45) mmHg ABG pO2 (83-108) mmHg ABG Total CO2 (19-24) mmol/L ABG O2 Saturation (94-97) % Potassium 3.3 L (3.5-5.1) mmol/L Chloride 115 H (98-107) mmol/L BUN 32 H (7-17) mg/dL Glucose 167 H (74-99) mg/dL POC Glucose (mg/dL) 171 H (75-99) mg/dL Calcium 6.9 L (8.4-10.2) mg/dL Phosphorus 2.0 L (2.5-4.5) mg/dL 10/13/19 10/13/19 10/13/19 Range/Units 08:25 09:39 11:40 WBC (3.8-10.6) k/uL RBC (3.80-5.40) m/uL Hgb (11.4-16.0) gm/dL Hct (34.0-46.0) % RDW (11.5-15.5) % Plt Count (150-450) k/uL Neutrophils # (Manual) (1.3-7.7) k/uL Lymphocytes # (Manual) (1.0-4.8) k/uL Monocytes # (Manual) (0-1.0) k/uL Nucleated RBCs (0-0) /100 WBC ABG pH 7.30 L 7.31 L (7.35-7.45) ABG pCO2 52 H 48 H (35-45) mmHg ABG pO2 37 L* (83-108) mmHg ABG Total CO2 27 H 25 H (19-24) mmol/L ABG O2 Saturation 72.3 L 98.0 H (94-97) % Potassium (3.5-5.1) mmol/L Chloride (98-107) mmol/L BUN (7-17) mg/dL Glucose (74-99) mg/dL POC Glucose (mg/dL) 169 H (75-99) mg/dL Calcium (8.4-10.2) mg/dL Phosphorus (2.5-4.5) mg/dL Microbiology - Last 24 Hours (Table) 10/11/19 18:15 Blood Culture - Preliminary Blood No Growth after 24 hours Assessment and Plan Assessment: Acute hypoxic and hypercapnic respiratory failure requiring reintubation on 10/13/19, this is multifactorial, secondary to pulmonary edema, acute on chronic systolic congestive heart failure, and suspect underlying aspiration pneumonia, possible abdominal sepsis Status post partial gastrectomy and omentectomy for gastric bleeding, splenectomy, postoperative day #5 Acute upper GI bleeding, most likely from gastric mass, pathology is nondiagnostic for malignancy. Known history of coronary artery disease and previous coronary intervention and stenting Known history of gastric mass, previous biopsies were nondiagnostic. Acute on chronic anemia secondary to GI blood losses Chronic deep vein thrombosis of lower extremities. Patient had previous filter placement. Chronic systolic congestive heart failure secondary to LV dysfunction. Aspiration pneumonia could not be entirely ruled out Paroxysmal atrial fibrillation, presently in normal sinus rhythm. History of multiple sclerosis History of peripheral neuropathy History of ventricular tachycardia and cardiac arrest History of peripheral vessel occlusive disease History of benign essential hypertension. History of fibromyalgia History of degenerative joint disease History of peripheral neuropathy History of ESBL infection History of anxiety and bipolar disorder History of AICD placement History of ulcerative colitis and irritable bowel syndrome Status post placement of right femoral arterial line and the right femoral triple-lumen catheter, postoperative day #0. Recommendation: Continue ventilatory support. Continue hemodynamic support/pressors. Patient is now on vasopressin and norepinephrine. Continue present supportive care measures. Continue Flagyl cefepime and Eraxis. Continue diuretics. Continue Lovenox. Continue GI prophylaxis. Continue TPN. Patient is critically ill, required reintubation today, tried to reach her sister before intubation, however she could not be reached. But she was later notified by the nurses that the patient had to be intubated and placed on mechanical ventilation. Critical care time is 40 minutes not including the time spent on intubation.. We'll continue to follow up Time with Patient: Greater than 30
[2019-10-13] MEDS: NITROGLYCERIN OINT 1 INCH/GM PACKET TOPICAL SCH ×2 (13:02→17:43)
--- NOTE | 2019-10-13 13:19 | P.PN ---
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 She is postoperative day 5. Today she had new events where she's been reintubated. Additionally, she has developed new ischemic changes of the right hand more so than the left upon discussion with nursing. Patient has pre-existing peripheral vascular occlusive disease with tissue loss along the toes on previous assessment. At this time, CODE status is being addressed by the critical care team. She has been afebrile. Her leukocytosis continues to worsen. Arterial blood gases continued to worsen. Orogastric tube placed by flag car driver. ROS: No reports of nausea and vomiting. No fevers or chills. No new chest pain. PHYSICAL EXAM: VITAL SIGNS: Reviewed. Afebrile CONSTITUTIONAL: Well developed and in no acute distress. EYES: Conjuctivae without sclera icterus. Extraocular movements grossly intact. HEAD, EARS, NOSE, THROAT: Head is atraumatic, normocephalic. Hears conversational speech. No nasal drainage. Orogastric tube present. NECK: Supple. RESPIRATORY: A full mechanical ventilation. CARDIOVASCULAR: Palpable 2+ radial pulses. ABDOMEN: Abdominal dressing clean dry and intact. ROSELIA serosanguineous. MUSCULOSKELETAL: No clubbing. Has mild cyanosis of the toes. Cool to touch. New intense cyanotic changes along the entire right hand. SKIN: Ischemic changes along the right hand with cyanosis and cool to touch. NEUROLOGIC: Deferred as patient sedated. PSYCH: Deferred as patient is sedated CLINICAL LABS: White blood cell count from 17,000 to 27,000, now 32,800 to 35,800. Platelets increased from 41,000 to 142,000, now 76,000 down to 40,000 PATHOLOGY: Benign gastric resection ASSESSMENT: 1. Status post splenectomy gastrectomy for gastric tumor with takeback for bleeding 2. Hypoxia requiring reintubation 3. Peripheral vascular occlusive disease involving limited ischemia PLAN: 1. She has poor prognostic factors including new right upper extremity limb ischemia, reintubation, hypoxia, thrombocytopenia for which prognosis is guarded. 2. Agree with addressing CODE STATUS as overall clinical picture is poor 3. As patient has gastrectomy, orogastric tube contraindicated Objective - Vital Signs Vital signs: Vital Signs Temp 97 F L 10/13/19 12:00 Pulse 82 10/13/19 13:00 Resp 22 10/13/19 13:00 BP 100/84 10/13/19 13:00 Pulse Ox 93 L 10/13/19 12:00 Intake & Output 10/12/19 10/13/19 10/13/19 18:59 06:59 18:59 Intake Total 0729.534 5795 1492.389 Output Total 2855 2075 1295 Balance -884.721 -427 197.389 Weight 77.3 kg Intake: IV 1909 1548 1227 Anidulafungin 100 mg In 100 Sodium Chloride 0.9% 100 ml @ 84 mls/hr IVPB DAILY SID Rx#:[id number] Anidulafungin 200 mg In 200 100 Sodium Chloride 0.9% 200 ml @ 84 mls/hr IVPB ONCE ONE Rx#:[id number] Cefepime 2 gm In Sodium 100 Chloride 0.9% 100 ml @ 200 mls/hr IVPB Q12HR S[facility] Rx#:[id number] Fat Emulsion 20% 250 ml 21 252 21 In Empty Bag 1 bag @ 21 mls/hr IV DAILY@1800 [facility] Rx#:[id number] Mvi, Adult No.4 with Vit 605 660 385 K 10 ml Trace (Conc-1Ml/ Dose) 1 ml Parenteral Electrolytes 20 ml In Amino Acid 5%-D15w 1,000 ml @ 55 mls/hr IV . [id number] SID Rx#:[id number] Potassium Chloride 20 meq 200 In Water For Injection 1 100ml.bag @ 50 mls/hr IVPB Q2H SID Rx#: [id number] Potassium Chloride 20 meq 100 In Water For Injection 1 100ml.bag @ 50 mls/hr IVPB Q2H [facility] Rx#: [id number] Pressure Bag 33 36 21 Sodium Chloride 0.9% 1, 550 600 200 000 ml @ 20 mls/hr IV . Q24H SID Rx#:[id number] Sodium Phosphate 10 mmol 200 In Sodium Chloride 0.9% 100 ml @ 50 mls/hr IVPB Q2H S[facility] Rx#:[id number] metroNIDAZOLE-NS PMX 500 200 100 mg In Saline 1 100ml.bag @ 100 mls/hr IVPB Q8HR SID Rx#:[id number] Intake, IV Titration 61.279 100 265.389 Amount Norepinephrine 8 mg In 61.279 265.389 Sodium Chloride 0.9% 250 ml @ 0.4 MCG/KG/MIN 51. 858 mls/hr IV .Q4H59M SID Rx#:[id number] Potassium Chloride 20 meq 100 In Water For Injection 1 100ml.bag @ 50 mls/hr IVPB Q2H SID Rx#: [id number] Output: Drainage 270 Abdomen 270 Urine 2050 1615 1025 Stool 125 Other 680 460 Other: Voiding Method Indwelling Catheter Indwelling Catheter Indwelling Catheter ABP, PAP, CO, CI - Last Documented Arterial Blood Pressure 94/54 - Labs CBC & Chem 7: 10/13/19 04:45 10/13/19 04:45 Labs: Abnormal Lab Results - Last 24 Hours (Table) 10/12/19 10/12/19 10/13/19 Range/Units 17:51 23:01 04:45 WBC (3.8-10.6) k/uL RBC (3.80-5.40) m/uL Hgb (11.4-16.0) gm/dL Hct (34.0-46.0) % RDW (11.5-15.5) % Plt Count (150-450) k/uL Neutrophils # (Manual) (1.3-7.7) k/uL Lymphocytes # (Manual) (1.0-4.8) k/uL Monocytes # (Manual) (0-1.0) k/uL Nucleated RBCs (0-0) /100 WBC ABG pH (7.35-7.45) ABG pCO2 (35-45) mmHg ABG pO2 (83-108) mmHg ABG Total CO2 (19-24) mmol/L ABG O2 Saturation (94-97) % Potassium 3.3 L (3.5-5.1) mmol/L Chloride 115 H (98-107) mmol/L BUN 32 H (7-17) mg/dL Glucose 167 H (74-99) mg/dL POC Glucose (mg/dL) 195 H 204 H (75-99) mg/dL Calcium 6.9 L (8.4-10.2) mg/dL Phosphorus 2.0 L (2.5-4.5) mg/dL 0710/13/19 10/13/19 Range/Units 04:45 05:28 08:25 WBC 35.8 H (3.8-10.6) k/uL RBC 3.24 L (3.80-5.40) m/uL Hgb 10.4 L (11.4-16.0) gm/dL Hct 30.6 L (34.0-46.0) % RDW 18.4 H (11.5-15.5) % Plt Count 48 L (150-450) k/uL Neutrophils # (Manual) 34.70 H (1.3-7.7) k/uL Lymphocytes # (Manual) 0.36 L (1.0-4.8) k/uL Monocytes # (Manual) 1.07 H (0-1.0) k/uL Nucleated RBCs 14 H (0-0) /100 WBC ABG pH 7.30 L (7.35-7.45) ABG pCO2 52 H (35-45) mmHg ABG pO2 37 L* (83-108) mmHg ABG Total CO2 27 H (19-24) mmol/L ABG O2 Saturation 72.3 L (94-97) % Potassium (3.5-5.1) mmol/L Chloride (98-107) mmol/L BUN (7-17) mg/dL Glucose (74-99) mg/dL POC Glucose (mg/dL) 171 H (75-99) mg/dL Calcium (8.4-10.2) mg/dL Phosphorus (2.5-4.5) mg/dL 10/13/19 10/13/19 Range/Units 09:39 11:40 WBC (3.8-10.6) k/uL RBC (3.80-5.40) m/uL Hgb (11.4-16.0) gm/dL Hct (34.0-46.0) % RDW (11.5-15.5) % Plt Count (150-450) k/uL Neutrophils # (Manual) (1.3-7.7) k/uL Lymphocytes # (Manual) (1.0-4.8) k/uL Monocytes # (Manual) (0-1.0) k/uL Nucleated RBCs (0-0) /100 WBC ABG pH 7.31 L (7.35-7.45) ABG pCO2 48 H (35-45) mmHg ABG pO2 (83-108) mmHg ABG Total CO2 25 H (19-24) mmol/L ABG O2 Saturation 98.0 H (94-97) % Potassium (3.5-5.1) mmol/L Chloride (98-107) mmol/L BUN (7-17) mg/dL Glucose (74-99) mg/dL POC Glucose (mg/dL) 169 H (75-99) mg/dL Calcium (8.4-10.2) mg/dL Phosphorus (2.5-4.5) mg/dL Microbiology - Last 24 Hours (Table) 10/11/19 18:15 Blood Culture - Preliminary Blood No Growth after 24 hours Assessment and Plan (1) Peripheral vascular occlusive disease Current Visit: Yes Status: Acute Code(s): I73.9 - PERIPHERAL VASCULAR DISEASE, UNSPECIFIED SNOMED Code(s): 656785813 (2) Ischemic toe Current Visit: Yes Status: Acute Code(s): I99.8 - OTHER DISORDER OF CIRCULATORY SYSTEM SNOMED Code(s): 805530246 (3) Acute on chronic anemia Current Visit: Yes Status: Acute Code(s): D64.9 - ANEMIA, UNSPECIFIED SNOMED Code(s): 696849901 (4) GI hemorrhage Current Visit: Yes Status: Acute Code(s): K92.2 - GASTROINTESTINAL HEMORRHAGE, UNSPECIFIED SNOMED Code(s): 16983676 (5) Hypotension Current Visit: Yes Status: Acute Code(s): I95.9 - HYPOTENSION, UNSPECIFIED SNOMED Code(s): 25275439 (6) Abdominal mass Current Visit: No Status: Acute Code(s): R19.00 - INTRA-ABD AND PELVIC SWELLING, MASS AND LUMP, UNSP SITE SNOMED Code(s): 428478953 (7) S/P splenectomy Current Visit: Yes Status: Acute Code(s): Z90.81 - ACQUIRED ABSENCE OF SPLEEN SNOMED Code(s): 992731088 (8) Leukocytosis Current Visit: Yes Status: Acute Code(s): D72.829 - ELEVATED WHITE BLOOD CELL COUNT, UNSPECIFIED SNOMED Code(s): 419704085
[2019-10-13 14:07] LABS: ABG Base Excess -1.7 mmol/L; ABG HCO3 24 mmol/L (21-25); ABG Oxygen Saturation 98.3 % (94-97); ABG PCO2 42 mmHg (35-45); ABG PH 7.36 (7.35-7.45); ABG PO2 105 mmHg (83-108); ABG TCO2 25 mmol/L (19-24); Allen Test Performed? Yes
--- NOTE | 2019-10-13 14:09 | P.PN ---
Progress Note - Text Progress Note Date: 10/13/19 Chief Complaint: Shortness of breath history of presenting complaint: This is a 63-year-old patient who follows with visiting physicians Dr. Vera.. Normally uses a wheelchair or a walker to get about. Chronic stable medical conditions include, coronary artery disease, COPD in an ex-smoker, chronic fibromyalgia, GERD, hyperlipidemia, essential hypertension, osteoarthritis, hypothyroid, chronic multiple sclerosis, peripheral neuropathy lower extremity, chronic urinary incontinence. Patient also was worked up at [facility] for a gastric greater curvature mass which eventually showed up to be normal smooth muscle cells. Also's chronic intermittent GI bleed from a gastric ulcer. Patient admitted to the hospital on August 06 with a diagnosis of bilateral lower extremity DVT. Could not tolerate IV heparin because of intermittent dark stools for some time. Did require blood transfusion. [place] filter was placed. Patient had repeated admissions for GI bleed. Getting blood transfusions. Continued to refuse endoscopy. Patient was now admitted 2 weeks ago again. On this occasion she agreed to proceed with endoscopy by Dr. Eliza Solis. Biopsy did come back showing gastric mucosa. She also consented for surgery. Patient now presents with shortness of breath. Continues to have dark stools. Hemoglobin came back at 5.1. Admitted to the ICU. Yesterday on October 07-patient was taken to the operating room. Partial gastrectomy and partial splenectomy was carried out. Patient was brought back to the ICU. Patient continued to have increasing bleeding for the ROSELIA drain. Became hypotensive. Patient received another 3 units of blood. Taken back to the operating room. Several oozing spors were noted around the staple site. Further suturing was carried out. Patient was returned to the ICU. Patient received a total of 7 units of blood. Patient's white count started to climb up. ID was consulted. Antibiotics were added. [id number] patient went into respiratory distress. Was intubated. On the vent with FiO2 80 and PEEP of 5. Drips include norepinephrine, vasopressin. Also to prevent. Telemetry shows sinus rhythm. Review of systems: Patient intubated Active Medications Albuterol Sulfate (Ventolin Nebulized) 2.5 mg INHALATION RT-QID PRN PRN Reason: Shortness Of Breath Albuterol/Ipratropium (Duoneb 0.5 Mg-3 Mg/3 Ml Soln) 3 ml INHALATION RT-QID SID Last Admin: 10/13/19 11:14 Dose: 3 ml Documented by: Albuterol/Ipratropium (Duoneb 0.5 Mg-3 Mg/3 Ml Soln) 3 ml INHALATION RT-Q2H PRN PRN Reason: Shortness Of Breath Or Wheezing Amiodarone HCl (Cordarone) 100 mg PO DAILY [facility] Last Admin: 10/13/19 08:10 Dose: Not Given Documented by: Aripiprazole (Abilify) 10 mg PO DAILY [facility] Last Admin: 10/13/19 08:10 Dose: Not Given Documented by: Atorvastatin Calcium (Lipitor) 40 mg PO DAILY [facility] Last Admin: 10/13/19 08:10 Dose: Not Given Documented by: Baclofen (Lioresal) 20 mg PO TID PRN PRN Reason: Muscle Spasm Chlorhexidine Gluconate (Peridex) 15 ml MUCOUS MEM BID [facility] Cholecalciferol (Vitamin D3 (25 Mcg = 1000 Iu)) 2,000 unit PO DAILY [facility] Last Admin: 10/13/19 08:10 Dose: Not Given Documented by: Citalopram Hydrobromide (Celexa) 20 mg PO DAILY [facility] Last Admin: 10/13/19 08:10 Dose: Not Given Documented by: Cyanocobalamin (Vitamin B-12) 1,000 mcg PO DAILY [facility] Last Admin: 10/13/19 08:10 Dose: Not Given Documented by: Enoxaparin Sodium (Lovenox) 60 mg SQ Q12HR [facility] Last Admin: 10/13/19 09:39 Dose: 60 mg Documented by: Folic Acid (Folic Acid) 1 mg PO DAILY [facility] Last Admin: 10/13/19 08:10 Dose: Not Given Documented by: Furosemide (Lasix) 40 mg IV Q8HR [facility] Gabapentin (Neurontin) 300 mg PO TID [facility] Last Admin: 10/13/19 08:10 Dose: Not Given Documented by: Hydromorphone HCl (Dilaudid) 1 mg IVP Q1HR PRN PRN Reason: Severe Pain Last Admin: 10/12/19 14:34 Dose: 1 mg Documented by: Sodium Chloride (Saline 0.9%) 1,000 mls @ 20 mls/hr IV .Q24H [facility] Last Admin: 10/12/19 14:20 Dose: 50 mls/hr Documented by: Vasopressin 20 unit/ Sodium (Chloride) 51 mls @ 4.59 mls/hr IVPB .Q11H7M [facility] Last Admin: 10/13/19 10:56 Dose: 4.59 mls/hr Documented by: Norepinephrine Bitartrate 8 mg (/ Sodium Chloride) 258 mls @ 51.858 mls/hr IV .Q4H59M [facility]; Protocol Last Titration: 10/13/19 12:00 Dose: 0.02 mcg/kg/min, 2.593 mls/hr Documented by: Diltiazem HCl 125 mg/ Sodium (Chloride) 125 mls @ 0 mls/hr IV .Q0M [facility]; Protocol Last Titration: 10/10/19 11:00 Dose: 0 mls/hr, 0 mls/hr Documented by: Fat Emulsion Intravenous 250 (ml/ IV Solution) 250 mls @ 21 mls/hr IV DAILY@1800 [facility] Last Admin: 10/12/19 17:56 Dose: 21 mls/hr Documented by: Metronidazole 500 mg/ IV (Solution) 100 mls @ 100 mls/hr IVPB Q8HR [facility] Last Admin: 10/13/19 07:59 Dose: 100 mls/hr Documented by: Anidulafungin 100 mg/ Sodium (Chloride) 100 mls @ 84 mls/hr IVPB DAILY [facility] Last Admin: 10/13/19 09:37 Dose: 84 mls/hr Documented by: Cefepime HCl 2 gm/ Sodium (Chloride) 100 mls @ 200 mls/hr IVPB Q12HR [facility] Last Admin: 10/13/19 09:36 Dose: 200 mls/hr Documented by: Parenteral Vitamin Supplement 10 ml/ Chromium/Copper/Manganese/Seleni/Zn 1 ml/Potassium Chloride 60 meq/Potassium Phosphate 10 mmol/Magnesium Sulfate 1 gm/ Amino Ac/Electrol/Dextrose/Calcium 1,046.3333 mls @ 55 mls/hr IV .Q19H2M [facility] Last Admin: 10/13/19 10:04 Dose: 55 mls/hr Documented by: Propofol 1,000 mg/ IV Solution 100 mls @ 0 mls/hr IV .Q0M [facility]; Protocol Potassium Chloride 10 meq/ IV (Solution) 100 mls @ 100 mls/hr IVPB Q1H [facility]; Protocol Stop: 07/05/20 15:59 Insulin Aspart (Novolog) 0 unit SQ Q6HR [facility]; Protocol Last Admin: 10/13/19 11:59 Dose: 2 unit Documented by: Levothyroxine Sodium (Synthroid) 100 mcg PO DAILY@0630 [facility] Last Admin: 10/13/19 05:23 Dose: Not Given Documented by: Loratadine (Claritin) 10 mg PO DAILY [facility] Last Admin: 10/13/19 08:11 Dose: Not Given Documented by: Lorazepam (Ativan) 0.5 mg PO Q4H PRN PRN Reason: Anxiety Last Admin: 10/09/19 23:56 Dose: 0.5 mg Documented by: Miscellaneous Information (Magnesium Per Protocol) 1 each MISCELLANE DAILY PRN; Protocol PRN Reason: Per Protocol Miscellaneous Information (Potassium Per Protocol) 1 each MISCELLANE DAILY PRN; Protocol PRN Reason: Per Protocol Morphine Sulfate (Morphine Oral Doreen 2mg/Ml) 5 mg PO Q4H PRN PRN Reason: Pain Naloxone HCl (Narcan) 0.2 mg IV Q2M PRN PRN Reason: Opioid Reversal Last Admin: 10/08/19 16:57 Dose: 0.2 mg Documented by: Nitroglycerin (Nitro-Bid Oint) 1 inch TOPICAL Q6HR [facility] Last Admin: 10/13/19 13:02 Dose: 1 inch Documented by: Oxycodone/Acetaminophen (Percocet 5-325) 1 each PO Q8H PRN PRN Reason: Pain Last Admin: 10/08/19 11:54 Dose: 1 each Documented by: Pantoprazole Sodium (Protonix) 40 mg IVP BID [facility] Last Admin: 10/13/19 09:30 Dose: 40 mg Documented by: Promethazine HCl (Phenergan) 25 mg PO Q6HR PRN PRN Reason: Nausea And Vomiting Thiamine HCl (Vitamin B-1) 100 mg PO DAILY [facility] Last Admin: 10/13/19 08:11 Dose: Not Given Documented by: Physical examination: VITAL SIGNS: 97, 76, 22, 9755, 93% on the ventilator GENERAL: Laying in bed,, intubated EYES: Pupils equal. Conjunctiva pale HEENT: Endotracheal tube in place. NECK: JVD unable to assess; masses not palpable. HEART: First and second heart sounds are normal; mild edema. LUNGS: Respiratory rate increased, decreased breath sounds. ABDOMEN: Soft, tender, dressing in place. ROSELIA drain-serosanguineous drainage, no guarding or rigidity, liver spleen not palpable, no masses palpable. PSYCH: Sedated INVESTIGATIONS, reviewed in the clinical context: White count 35.8 hemoglobin 10.4 platelets 48 potassium 3.3 creatinine 0.7 to. Chest n-axk-yadiuau pleural parenchymal changes Previous testing: White count 8.7 hemoglobin 5.1 platelets 150 potassium 4.1 creatinine 0.65 lactic acid 2.3 Hemoglobin 8.7 on September 23 Assessment: -Acute on chronic GI bleed in a patient with known gastric mass - gastric mucosa per biopsy. Patient underwent partial gastrectomy and partial splenectomy on October 07. -Acute severe blood loss anemia from GI bleed, and postprocedure bleed-required a total of 7 units of blood -Acute hemorrhagic shock requiring norepinephrine and vasopressin-uncontrolled -Acute respiratory distress on October 12-patient intubated -Paroxysmal atrial fibrillation new-onset on Cardizem drip-then taken off -Chronic lower extremity DVT -with [place] filter on 08/10/2019 -Gastric ulcer disease -Solitary gallstone, asymptomatic -Coronary artery disease -COPD in an ex-smoker -Chronic fibromyalgia -GERD -Hyperlipidemia -Essential hypertension -Primary osteoarthritis -Hypothyroid -Chronic multiple sclerosis -Peripheral neuropathy both the lower extremity -Chronic urinary incontinence -Chronic gait dysfunction uses a walker/wheelchair -Hypoalbuminemia-acute phase reactant. -Worsening leukocytosis plan: -Patient currently on IV norepinephrine, vasopressin and to prevent. Intubated. Also in IV and anidulafungin, cefepime, TPN, IV Flagyl. Prognosis guarded.
--- NOTE | 2019-10-13 14:13 | PN ---
PROGRESS NOTE DATE OF SERVICE: 10/13/2019 This is a 64-year-old female. The patient was seen in the Intensive Care Unit Monday at 12:30 pm. The patient has been intubated this morning for acute respiratory failure. The patient has developed some discoloration of the finger and her right arm is cooler than the left arm. The patient has history of atrial fibrillation, hypertension. The patient has a bipolar disorder. AICD placed in the past. The patient went for a full gastrectomy for mass in the stomach. The patient came with low hemoglobin and she received a blood transfusion. The patient also has a history of DVT, bilateral and also patient has a filter placed by Radiology in the past. The patient is on vasopressin and Levophed. On vascular examination, her right forearm is cooler than the left arm. The axillary artery is palpable by Doppler not present and brachial by the Doppler present. No Doppler signal noted. Patient has some discoloration of the big thumb and tip of the fingers. On the left arm, patient has an ulnar by the Doppler. Posterior dorsal pedis by the Doppler on the feet. Case was discussed with Dr. Carter and we agreed that this patient is not a candidate for this surgical intervention. This could be due to the Levophed and Vasopressin. Patient is on Lovenox which will be continued. I have discussed this with Dr. Lee. Agreed the patient is very high risk for any major surgical intervention. MMODL / IJN: [id number] /
--- NOTE | 2019-10-13 14:28 | PCN ---
PROCEDURE NOTE OPERATIVE REPORT: Endotracheal intubation. PREOPERATIVE DIAGNOSIS: Acute hypoxic and hypercapnic respiratory failure. POSTOPERATIVE DIAGNOSIS: Acute hypoxic and hypercapnic respiratory failure. ANESTHESIA: Patient was given succinylcholine 75 mg IV push, propofol 50 mg IV push, and morphine sulfate 4 mg IV push. PROCEDURE DETAILS: The patient was placed in the supine position, the tongue was depressed using a GlideScope, the vocal cords were visualized, a size 7.5 endotracheal tube was inserted through the vocal cords, and the color change was noted. The cuff on the endotracheal tube was inflated, connected to mechanical ventilation, chest x-ray showed no evidence of any postoperative complications. Procedure was well tolerated. MMODL / IJN: [id number] /
[2019-10-13] MEDS: POTASSIUM CHLORIDE 10 MEQ in WATER FOR INJECTION 1 100ML.BAG IVPB SCH ×2 (14:30→15:37)
[2019-10-13] MEDS: SODIUM CHLORIDE 0.9% 1,000 ML IV SCH (17:44)
[2019-10-13 17:54] LABS: Glucose,Whole Blood 185 mg/dL (75-99)
[2019-10-13] MEDS: CHLORHEXIDINE GLUCONATE 15 ML CUP MUCOUS MEM SCH (21:34)
[2019-10-14 00:26] LABS: Glucose,Whole Blood 199 mg/dL (75-99)
[2019-10-14 00:37] LABS: ABG Base Excess 0.7 mmol/L; ABG HCO3 25 mmol/L (21-25); ABG Oxygen Saturation 93.4 % (94-97); ABG PCO2 38 mmHg (35-45); ABG PH 7.43 (7.35-7.45); ABG PO2 63 mmHg (83-108); ABG TCO2 26 mmol/L (19-24)
[2019-10-14 00:48] LABS: Allen Test Performed? no
[2019-10-14] MEDS: metroNIDAZOLE-NS PMX 500 MG in SALINE 1 100ML.BAG IVPB SCH ×3 (01:04→17:09)
[2019-10-14] MEDS: NITROGLYCERIN OINT 1 INCH/GM PACKET TOPICAL SCH ×4 (01:04→18:22)
[2019-10-14] MEDS: FUROSEMIDE 10 MG/ML 4 ML VIAL IV SCH (01:06)
[2019-10-14 01:22] LABS: Glucose,Whole Blood 195 mg/dL (75-99)
[2019-10-14] MEDS: INSULIN ASPART (NovoLOG) 100 UNIT/ML VIAL SQ SCH ×4 (01:23→18:22)
[2019-10-14] MEDS: NOREPINEPHRINE 8 MG in SODIUM CHLORIDE 0.9% 250 ML IV SCH ×5 (04:23→20:52)
[2019-10-14 05:05] LABS: Anisocytosis Slight; HCT 29.9 % (34.0-46.0); HGB 9.3 gm/dL (11.4-16.0); Hypochromasia Moderate; MCH 28.8 pg (25.0-35.0); MCHC 31.2 g/dL (31.0-37.0); MCV 92.2 fL (80.0-100.0); Poikilocytosis Moderate; RBC 3.25 m/uL (3.80-5.40); RDW 17.7 % (11.5-15.5)
[2019-10-14 05:06] LABS: Platelet Count 69 k/uL (150-450)
[2019-10-14 05:08] LABS: ALT 34 U/L (4-34); AST 125 U/L (14-36); African American GFR (CKD) >90 (>60 ml/min/1.73 sqM); Albumin 1.6 g/dL (3.5-5.0); Alkaline Phosphatase 62 U/L (38-126); Anion Gap 2 mmol/L; Blood Urea Nitrogen 34 mg/dL (7-17); Calcium 6.9 mg/dL (8.4-10.2); Carbon Dioxide 26 mmol/L (22-30); Chloride 112 mmol/L (98-107); Glucose 201 mg/dL (74-99); Magnesium 1.9 mg/dL (1.6-2.3); Non-African American GFR(CKD) >90 (>60 ml/min/1.73 sqM); Phosphorus 2.8 mg/dL (2.5-4.5); Potassium 3.7 mmol/L (3.5-5.1); Sodium 140 mmol/L (137-145); Total Bilirubin 0.5 mg/dL (0.2-1.3); Total Protein 3.3 g/dL (6.3-8.2)
[2019-10-14 05:35] LABS: Eosinophils # (M) 0.95 k/uL (0-0.7); Lymphocytes # (M) 0.63 k/uL (1.0-4.8); Monocytes # (M) 0.95 k/uL (0-1.0); Neutrophils # (M) 29.16 k/uL (1.3-7.7); Neutrophils % (M) 92 %; Nucleated Red Blood Cells 7 /100 WBC (0-0); Total Cells Counted 200; WBC 31.7 k/uL (3.8-10.6)
[2019-10-14 05:37] LABS: Large Platelets Present
[2019-10-14 05:57] LABS: ABG Base Excess 1.5 mmol/L; ABG HCO3 25 mmol/L (21-25); ABG Oxygen Saturation 95.7 % (94-97); ABG PCO2 36 mmHg (35-45); ABG PH 7.46 (7.35-7.45); ABG PO2 70 mmHg (83-108); ABG TCO2 27 mmol/L (19-24)
[2019-10-14 06:00] LABS: Allen Test Performed? no
--- NOTE | 2019-10-14 06:28 | PN ---
PROGRESS NOTE DATE OF SERVICE: 10/13/2019 REASON FOR FOLLOWUP: Leukocytosis. INTERVAL HISTORY: Patient is currently afebrile. The patient is breathing comfortably. The patient did go into respiratory distress this morning and ended up getting intubated, currently requiring pressor support with pressor and Levophed. No significant purulent secretion in the ET or any diarrhea reported by nursing staff. PHYSICAL EXAMINATION: Blood pressure 90/65 with a pulse of 84, temperature is 98.2, she is 94% on 50% FiO2. Patient is a middle-aged female intubated on the vent. HEENT examination shows slight pallor. The patient is orally intubated. Lungs unlabored breathing with decreased breath sounds in the base, with no wheeze. Heart S1, S2. Regular rate and rhythm. Abdomen is soft, no distention, no rigidity. LABS: Blood culture negative. White count of 35,000. DIAGNOSTIC IMPRESSION AND PLAN: Patient with significant elevated white count. This patient did have a partial gastrectomy and splenectomy for a gastric tumor with concern for possible reaction to her splenectomy or from abdominal infection. Patient is covered with broad-spectrum antibiotics in the form of cefepime, Flagyl and Eraxis to continue and will monitor clinical course closely. MMODL / IJN: [id number] /
[2019-10-14] MEDS: LEVOTHYROXINE 100 MCG TAB PO SCH (06:44)
[2019-10-14 06:56] LABS: Glucose,Whole Blood 172 mg/dL (75-99)
[2019-10-14] MEDS: MVI, ADULT NO.4 WITH VIT K 10 ML, TRACE (CONC-1ML/DOSE) 1 ML, POTASSIUM CHLORIDE 60 MEQ... IV SCH ×6 (07:21)
[2019-10-14] MEDS: IPRATROPIUM-ALBUTEROL 3 ML NEB INHALATION SCH ×4 (07:38→19:23)
--- NOTE | 2019-10-14 07:44 | XR ---
EXAMINATION TYPE: XR chest 1V portable DATE OF EXAM: 10/14/2019 COMPARISON: 10/13/2019 HISTORY: SOB, Follow Up FINDINGS: Indwelling tubes and catheters are unchanged. No change in bibasilar opacities. Stable appearance of the cardio-mediastinal structures at this time. Pleural effusion unchanged. IMPRESSION: 1. Stable portable chest. Clinical correlation and follow up until resolution is recommended.
--- NOTE | 2019-10-14 08:26 | P.PN ---
Subjective Progress Note Date: 10/14/19 Principal diagnosis: GI bleeding, status post partial gastrectomy This is a 64-year-old female with history of multiple medical problems, she was recently inpatient for upper GI bleeding secondary to stomach mass. Workup including EGD and biopsy of the mass was basically nondiagnostic. Patient came into the ER yesterday complaining of shortness of breath, and also complaining of melanotic stools. Denies any abdominal pain, denies any cough, no wheezing, no fever, no chills, no hemoptysis. Patient was noted to have extremely low hemoglobin of 5.1. Patient was also noted to have low sodium of 129. And positive occult blood. Considering her extremely low hemoglobin, patient was admitted, started on blood transfusion, she received so far 1 unit of packed RBCs, and we were asked to see her on consultation because the patient was admitted to the ICU. GI consultation is pending. Patient was recently discharged from the hospital on 09/24/19, she had multiple admissions for GI bleeding, and on her last admission she underwent EGD and she was found to have a gastric mass. Tissue biopsy has been negative for malignancy. She was seen at the time by surgery, and recommended that the patient gets transferred to a tertiary care center. And her primary care physician was notified by the discharge physician that the patient will eventually need to be transferred to a tertiary care center like [facility]. Apparently this was never done. Patient is not on any anti-coagulation therapy. She is not on any blood thinners. I saw the patient in the ICU, and she seemed to be hemodynamically stable. She received already 1 unit of packed RBCs, and she is to receive another unit in the next hour or so. Patient is on 2 L nasal cannula, she has IV fluid at O but I will increase the IV fluid to 75 mL per hour. She was noted to have swelling of her lower extremities, and redness with cellulitis of lower extremities. Hence I recommended ultrasound of lower extremities and recommended. Patient was reevaluated today on 10/08/19, remains in the ICU, patient is scheduled to undergo partial gastrectomy today. This will be done by Dr. Chauhan. Yesterday the patient was diagnosed as having deep vein thrombosis, and we later determined that the patient already had a [place] filter placement in the past. Hence the patient will be cleared for surgical intervention by general surgery today for partial gastrectomy. Patient received a total of 2 units of packed RBCs since admission, hemoglobin today is 7.3, and I will give her another unit of blood before she goes down to the operating room. Her IV fluid is at KVO she is on 2 L nasal cannula with O2 saturation of 99%. Her urine output has been low overnight, and I increased her IV fluid maintenance today. Patient had 1 large brown bowel movement, no bleeding, and no abdominal pain. Her IV fluid was increased to 100 mL/h, and she will receive 1 unit of packed RBCs today. Patient was reevaluated today on 10/09/19, I saw this patient around 8 AM, yesterday, patient had a very carlos postoperative course. Shortly after she arrived to the ICU, patient developed worsening postoperative bleeding, this was quite extensive, patient received multiple units of packed RBCs, received fresh frozen plasma, she had to be reintubated, and her blood pressure was low. Surgery was notified, patient was taken back to the operating room, and there was some evidence of generalized oozing. The bleeding was controlled in the operating room. Patient came back to the ICU on mechanical ventilation, and she remains on fluids, she is on norepinephrine at 0.5 mcg/kg/m, she is on assist control rate of 2410 volume of 325 FiO2 50% and PEEP of 5. ABG this morning showed a pO2 of 122 pCO2 of 42 pH of 7.31. Urine output is marginal, hence I recommended a dose of Lasix 60 mg IV push. Chest x-ray showed evidence of atelectasis, possible infiltrate in the left lower lobe, but clinically the fin dings are mostly findings of atelectasis in the left lower lobe. Patient was given a weaning trial with CPAP, and she seemed to tolerate that weaning trial fairly well. Hence I recommended extubating the patient. Labs were all reviewed, chest x-ray was reviewed, and the operative reports from surgery were reviewed. Hemoglobin today is 12.6. WBC count is 18.2. Platelets are 51,000. Electrolytes are normal renal profile is normal in spite of the fact the patient may have sustained some acute tubular necrosis or acute kidney injury, but not seen on her labs today yet. Again her urine output is poor but she'll be given Lasix 1. Patient received significant amount of fluids and blood products yesterday after her initial surgery. Patient was reevaluated today on 10/10/19, remains in the ICU, patient developed hypotension last night, she also developed atrial fibrillation with RVR. Given Cardizem and placed on a Cardizem drip at 5 mg per hour. She also required placement on vasopressin, and norepinephrine. Her norepinephrine dose was as high as 0.6, and vasopressin at 0.04. Overnight the patient lost her arterial line, hence I was able to place a new femoral arterial line. Patient's ABG on 2 L nasal cannula showed a pO2 of 50 pCO2 of 36 pH of 7.27, hence I gave the patient 1 amp of bicarb, increase her FiO2 to 5 L. IV fluid is at 100 mL per hour, and I recommended Lasix 40 mg IV push 1, and I will cut down her IV fluid to KVO. Chest x-ray showed mild interstitial edema and bilateral pleural effusions. With atelectasis especially at the left base. Nurse taking care of the patient could not draw blood from her [place] in the right cervical region, hence a triple-lumen catheter was placed today in the groin, and a right femoral arterial line was also placed. Today after arterial line was placed, noted that her blood pressure from the arterial line was much higher than what we were getting on the cough. Hence were able to titrate the norepinephrine down to 0.15. And were still tapering. Her vasopressin will be titrated later. And Cardizem was discontinued patient converted to normal sinus rhythm this morning. Electrolytes are normal bicarb is 17 however creatinine is 1.14. Hemoglobin is holding at 11.6. WBC count of 17.0 Patient was reevaluated today on 10/11/19, remains in the ICU. Remains on vasopressin at 0.04 units per minute, she is off norepinephrine. Her IV fluid is at 100 mL/h and I cut it down to 50 mL per hour she is on TPN at 3 0 mL/h. Urine output is excellent at 1 50 mL per hour. Patient is on room air, denies any shortness of breath, chest x-ray showed bibasilar interstitial edema or infiltrates. Hence I recommended cutting down her IV fluid, and I added empiric antibiotics in the form of clindamycin and cefepime. Patient is ALLERGIC to penicillin, considering the patient is diuresing and her own, I will not add La six at this point. But I will cut down her IV fluid and continue TPN. Patient is denying any shortness of breath, no cough, denies any nausea vomiting or abdominal pain. WBC count is 27.2 hemoglobin is 13 platelets are 142,000. Basic metabolic profile showed low potassium of 3.4 and normal renal profile. Patient was reevaluated today on 10/12/19, patient remains in the ICU, remains on 5 L nasal cannula. On norepinephrine at 0.08, she is also on vasopressin at 0.04, however when I evaluated the patient a blood pressure was excellent, and her mean was in the 90s. Recommended stopping norepinephrine. And to titrate the vasopressin as directed. Patient denies any specific complaints, she remains on Lasix at 40 mg every 12 hours, remains on Eraxis cefepime and on Flagyl. Patient is also on TPN. Overall the patient is doing better than expected. Pathology came back negative for malignancy. Except she was found to have nonviable omentum. White count today is rising 32.8 hemoglobin is 10.7. Platelets are 76,000. Direct was abnormal except for low potassium of 3.1 being corrected as per protocol. Patient was reevaluated today on 10/13/19, remains in the ICU, however the patient developed significant vasospasm and ischemic changes in the tips of her fingers bilaterally, right more so than left. Hence I recommended that the patient goes on Lovenox yesterday, I also recommended a vascular surgery evaluation. This morning, the patient is noted to be quite tachypneic, and ABG showed a pO2 of 37 pCO2 of 52 pH of 7.30. Could not establish a CODE STATUS with the patient lindsey use of her profound hypoxia and hypercapnia. Tried to reach family and discussed the CODE STATUS, no one could be reached. Hence I recommended intubating the patient and I did, patient was placed on mechanical ventilation. And she is presently on FiO2 of 80%, tidal volume is 09/10/1949 assist-control rate of 22 and PEEP of 5. Repeat ABG showed a pO2 of 106 he CO2 of 48 pH of 7.31. Chest x-ray post intubation showed the endotracheal tube about to see him above the diego, the orogastric tube is in the GE junction, and the chest x-ray showed diffuse bilateral interstitial infiltrates. And suspect some component of interstitial edema. Patient had to be placed back on vasopressin and pres ently on 0.01 units per minute, she is also on norepinephrine at 0.03 mcg/kg/m. Propofol is at 20 mcg/kg/m, IV fluid is at KVO, TPN is at 55 mL per hour. Lasix was increased to 40 mg IV push every 12 hours, Lovenox will remain the same at 60 mg subcu every 12 hours. Otherwise he'll continue present supportive care measures. WBC count remains elevated at 35.8 hemoglobin is 10.4. Basic metabolic profile is normal except for low potassium being corrected as per protocol. On 10/14/2019 patient seen in follow-up in the intensive care unit, she remains sedated, intubated on mechanical ventilator, current vent settings are assist- control with a rate of 22, tidal volume 350, FiO2 60% and PEEP of 5, this morning blood gases show pO2 of 70, pCO2 of 36 and pH of 7.46. Current IVs include 0.9 at a rate of 20 ML per hour, levo fed at 7 mics per minute, propofol at 32 mics per kilo per minute, vasopressin at 0.1 units per minutes, and TPN at a rate of 55 ML per hour. Patient has been afebrile, current antibiotic coverage includes cefepime, Eraxis, and Flagyl so far sputum and blood cultures have been negative to date. Today's labs have been reviewed, showing white blood cell count 31.7, hemoglobin of 9.3, platelet count is 69, sodium is 140, potassium 3.7, chloride is 112, CO2 is 26, B1 is 34, creatinine 0.71. Patient is in sinus mechanism with a rate of 60 BPM, today's chest x-ray has been reviewed showing stable appearance of bibasilar opacities. Patient remains on Lasix at 40 mg every 8 hours, and she is in -1.3 fluid balance over the last 24 hours. No signs of active bleeding, NG tube is in, however no feeding are infusing through it, patient is on TPN for nutritional support. Patient's abdominal incision is covered with a dressing, patient is having weeping from the abdominal incision, acquiring frequent dressing changes, right-sided ROSELIA drain draining serosanguineous output has been 450 ML of thin serosanguineous output in last 24 hours. Patient has ischemic changes on the tips of her fingers bilaterally more so on the right, and nitroglycerin patches are being applied to the right hand, also ischemic changes involving toes on bilateral feet, Doppler pulses are present in bilateral pedal and posttibial areas, patient remains on Lovenox at 60 mg every 12 hours. Lung sounds are clear, diminished at the bases. Abdomen is soft, nontender. Patient is diuresing, making urine in the order of 150-200 ML per hour. Objective - Vital Signs Vital signs: Vital Signs Temp 98.2 F 10/13/19 16:00 Pulse 70 10/14/19 07:49 Resp 21 10/14/19 04:15 BP 107/75 10/14/19 00:45 Pulse Ox 95 10/14/19 04:15 Intake & Output 10/13/19 10/14/19 10/14/19 18:59 06:59 18:59 Intake Total 2531.533 1741.1653 Output Total 2505 1700 Balance 26.533 41.1653 Intake: IV 1642 530 Anidulafungin 100 mg In 100 Sodium Chloride 0.9% 100 ml @ 84 mls/hr IVPB DAILY SID Rx#:[id number] Anidulafungin 200 mg In 100 Sodium Chloride 0.9% 200 ml @ 84 mls/hr IVPB ONCE ONE Rx#:[id number] Cefepime 2 gm In Sodium 200 Chloride 0.9% 100 ml @ 200 mls/hr IVPB Q12HR SID Rx#:[id number] Fat Emulsion 20% 250 ml 21 In Empty Bag 1 bag @ 21 mls/hr IV DAILY@1800 SID Rx#:[id number] Mvi, Adult No.4 with Vit 385 K 10 ml Trace (Conc-1Ml/ Dose) 1 ml Parenteral Electrolytes 20 ml In Amino Acid 5%-D15w 1,000 ml @ 55 mls/hr IV . [id number] SID Rx#:[id number] Potassium Chloride 20 meq 300 In Water For Injection 1 100ml.bag @ 50 mls/hr IVPB Q2H SID Rx#: [id number] Pressure Bag 36 30 Sodium Chloride 0.9% 1, 300 200 000 ml @ 20 mls/hr IV . Q24H SID Rx#:[id number] Sodium Phosphate 10 mmol 200 In Sodium Chloride 0.9% 100 ml @ 50 mls/hr IVPB Q2H SID Rx#:[id number] metroNIDAZOLE-NS PMX 500 200 100 mg In Saline 1 100ml.bag @ 100 mls/hr IVPB Q8HR SID Rx#:[id number] Intake, IV Titration 226.685 3008.1653 Amount Mvi, Adult No.4 with Vit 605 55 K 10 ml Trace (Conc-1Ml/ Dose) 1 ml Potassium Chloride 40 meq In Amino Acid 5%-D15w+Lytes*E* 1, 000 ml @ 55 mls/hr IV . [id number] SID Rx#:[id number] Mvi, Adult No.4 with Vit 1046.3333 K 10 ml Trace (Conc-1Ml/ Dose) 1 ml Potassium Chloride 60 meq Potassium Phosphate 10 mmol Magnesium Sulfate gm 1 gm In Amino Acid 5%-D15w+ Lytes*E* 1,000 ml @ 55 mls/hr IV .Q19H2M SID Rx# :[id number] Norepinephrine 8 mg In 284.533 9.832 Sodium Chloride 0.9% 250 ml @ 0.4 MCG/KG/MIN 51. 858 mls/hr IV .Q4H59M SID Rx#:[id number] Propofol 1,000 mg In 100.000 Empty Bag 1 bag @ Titrate IV .Q0M SID Rx#: [id number] Output: Drainage 270 Abdomen 270 Urine 2235 1700 Other: Voiding Method Indwelling Catheter Indwelling Catheter ABP, PAP, CO, CI - Last Documented Arterial Blood Pressure 105/60 - Exam GENERAL EXAM: Sedated, intubated, 64-year-old female, chronically ill-looking, current vent settings are assist-control with a rate of 22, tidal volume 350, FiO2 50% and PEEP of 5, comfortable in no apparent distress. Pallor and edema involving bilateral extremities, with ischemic changes involving the digits of bilateral hands, right greater than left, and involving digits of lower extremities. HEAD: Normocephalic/atraumatic. EYES: Normal reaction of pupils, equal size. Conjunctiva pink, sclera white. NOSE: Clear with pink turbinates. NG tube is present, clamped THROAT: No erythema or exudates. NECK: No masses, no JVD, no thyroid enlargement, no adenopathy. CHEST: No chest wall deformity. Symmetrical expansion. LUNGS: Equal air entry with no crackles, wheeze, rhonchi or dullness. CVS: Regular rate and rhythm, normal S1 and S2, no gallops, no murmurs, no rubs ABDOMEN: Soft, nontender. No hepatosplenomegaly, normal bowel sounds, no guarding or rigidity. Midabdominal incision covered with a surgical dressing, right-sided ROSELIA drain in place, weeping of clear fluid from the incisional area, ABDs a covering the abdominal incision EXTREMITIES: No clubbing, nonpitting edema involving hands and feet, cyanosis and ischemic changes involving the digits of bilateral hands and feet, right hand having more pronounced ischemic changes, and Doppler pulses in bilateral pedal and posttibial, radial pulse is nonpalpable, right brachial pulse is palpable, palpable left radial and brachial pulse MUSCULOSKELETAL: Muscle strength and tone normal. SPINE: No scoliosis or deformity SKIN: No rashes CENTRAL NERVOUS SYSTEM: Intubated, sedated No focal deficits, tone is normal in all 4 extremities. - Labs CBC & Chem 7: 10/14/19 04:45 10/14/19 04:45 Labs: Abnormal Lab Results - Last 24 Hours (Table) 10/13/19 10/13/19 10/13/19 Range/Units 08:25 09:39 11:40 WBC (3.8-10.6) k/uL RBC (3.80-5.40) m/uL Hgb (11.4-16.0) gm/dL Hct (34.0-46.0) % RDW (11.5-15.5) % Plt Count (150-450) k/uL Neutrophils # (Manual) (1.3-7.7) k/uL Lymphocytes # (Manual) (1.0-4.8) k/uL Eosinophils # (Manual) (0-0.7) k/uL Nucleated RBCs (0-0) /100 WBC ABG pH 7.30 L 7.31 L (7.35-7.45) ABG pCO2 52 H 48 H (35-45) mmHg ABG pO2 37 L* (83-108) mmHg ABG Total CO2 27 H 25 H (19-24) mmol/L ABG O2 Saturation 72.3 L 98.0 H (94-97) % Chloride (98-107) mmol/L BUN (7-17) mg/dL Glucose (74-99) mg/dL POC Glucose (mg/dL) 169 H (75-99) mg/dL Calcium (8.4-10.2) mg/dL AST (14-36) U/L Total Protein (6.3-8.2) g/dL Albumin (3.5-5.0) g/dL 10/13/19 10/13/19 10/14/19 Range/Units 14:02 17:52 00:25 WBC (3.8-10.6) k/uL RBC (3.80-5.40) m/uL Hgb (11.4-16.0) gm/dL Hct (34.0-46.0) % RDW (11.5-15.5) % Plt Count (150-450) k/uL Neutrophils # (Manual) (1.3-7.7) k/uL Lymphocytes # (Manual) (1.0-4.8) k/uL Eosinophils # (Manual) (0-0.7) k/uL Nucleated RBCs (0-0) /100 WBC ABG pH (7.35-7.45) ABG pCO2 (35-45) mmHg ABG pO2 (83-108) mmHg ABG Total CO2 25 H (19-24) mmol/L ABG O2 Saturation 98.3 H (94-97) % Chloride (98-107) mmol/L BUN (7-17) mg/dL Glucose (74-99) mg/dL POC Glucose (mg/dL) 185 H 199 H (75-99) mg/dL Calcium (8.4-10.2) mg/dL AST (14-36) U/L Total Protein (6.3-8.2) g/dL Albumin (3.5-5.0) g/dL 10/14/19 10/14/19 10/14/19 Range/Units 00:35 01:19 04:45 WBC 31.7 H (3.8-10.6) k/uL RBC 3.25 L (3.80-5.40) m/uL Hgb 9.3 L (11.4-16.0) gm/dL Hct 29.9 L (34.0-46.0) % RDW 17.7 H (11.5-15.5) % Plt Count 69 L (150-450) k/uL Neutrophils # (Manual) 29.16 H (1.3-7.7) k/uL Lymphocytes # (Manual) 0.63 L (1.0-4.8) k/uL Eosinophils # (Manual) 0.95 H (0-0.7) k/uL Nucleated RBCs 7 H (0-0) /100 WBC ABG pH (7.35-7.45) ABG pCO2 (35-45) mmHg ABG pO2 63 L (83-108) mmHg ABG Total CO2 26 H (19-24) mmol/L ABG O2 Saturation 93.4 L (94-97) % Chloride (98-107) mmol/L BUN (7-17) mg/dL Glucose (74-99) mg/dL POC Glucose (mg/dL) 195 H (75-99) mg/dL Calcium (8.4-10.2) mg/dL AST (14-36) U/L Total Protein (6.3-8.2) g/dL Albumin (3.5-5.0) g/dL 10/14/19 10/14/19 10/14/19 Range/Units 04:45 05:55 06:54 WBC (3.8-10.6) k/uL RBC (3.80-5.40) m/uL Hgb (11.4-16.0) gm/dL Hct (34.0-46.0) % RDW (11.5-15.5) % Plt Count (150-450) k/uL Neutrophils # (Manual) (1.3-7.7) k/uL Lymphocytes # (Manual) (1.0-4.8) k/uL Eosinophils # (Manual) (0-0.7) k/uL Nucleated RBCs (0-0) /100 WBC ABG pH 7.46 H (7.35-7.45) ABG pCO2 (35-45) mmHg ABG pO2 70 L (83-108) mmHg ABG Total CO2 27 H (19-24) mmol/L ABG O2 Saturation (94-97) % Chloride 112 H (98-107) mmol/L BUN 34 H (7-17) mg/dL Glucose 201 H (74-99) mg/dL POC Glucose (mg/dL) 172 H (75-99) mg/dL Calcium 6.9 L (8.4-10.2) mg/dL AST 125 H (14-36) U/L Total Protein 3.3 L (6.3-8.2) g/dL Albumin 1.6 L (3.5-5.0) g/dL Microbiology - Last 24 Hours (Table) 10/11/19 18:15 Blood Culture - Preliminary Blood No Growth after 48 hours Assessment and Plan Plan: Assessment: #1. Acute hypoxic and hypercapnic respiratory failure requiring reintubation on 10/13/2019, multifactorial, related to pulmonary edema, acute on chronic systolic congestive heart failure and possibility of aspiration pneumonia and possibility of abdominal sepsis. #2. Status post partial gastrectomy and omentectomy for gastric bleeding, splenectomy, postoperative day #6 #3. Acute upper GI bleeding, most likely from the gastric mass, pathology was nondiagnostic for malignancy #4. Known history of coronary artery disease with previous coronary artery intervention and stenting #6. Known history of gastroparesis, previous biopsies were nondiagnostic #7. Acute on chronic anemia secondary to GI blood losses #8. 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 Chronic systolic CHF secondary to LV dysfunction #10. Paroxysmal atrial fibrillation, presently in normal sinus rhythm #11. History of multiple sclerosis #12. History of ventricular tachycardia and cardiac arrest #13. History of peripheral vessel occlusive disease #14. History of benign essential hypertension #15. History of fibromyalgia, degenerative joint disease, peripheral neuropathy #16. History of ESBL infection #17. 2 of anxiety and bipolar disorder #18. History of AICD placement #19. History ulcerative colitis and irritable bowel syndrome Plan: Continue current ventilator settings, continue IV Lasix, today's chest x-ray still shows bibasilar densities, most likely related to bilateral pleural effusions, possibility of aspiration pneumonia is not entirely excluded, continu e current antibiotics, so far culture data is negative, patient is afebrile, wean vasopressin, will manage hemodynamic instability with one vasopressor, Levophed. We'll discontinue oral medications, patient has been strict nothing by mouth, with the exception of levothyroxine we'll switch to IV. Remains in sinus mechanism. Continue with current dose Lovenox. Continue TPN for nutritional support. We'll inquire per surgery when the enteral feeding can be started. Overall prognosis is extremely guarded, would like to speak with the family member today about patient's condition, and address CODE STATUS. I performed a history & physical examination of the patient and discussed their management with my nurse practitioner, Carmen Lambert. I reviewed the nurse practitioner's note and agree with the documented findings and plan of care. Lung sounds are positive for diminished breath sounds. The findings and the impression was discussed with the patient. I attest to the documentation by the nurse practitioner. Time with Patient: Greater than 30
[2019-10-14] MEDS ORDERED: LEVOTHYROXINE IVP 100 MCG/5 ML VIAL IV SCH (09:00)
[2019-10-14] MEDS: CHLORHEXIDINE GLUCONATE 15 ML CUP MUCOUS MEM SCH ×2 (09:22→20:52)
[2019-10-14] MEDS: ENOXAPARIN 60 MG/0.6 ML SYRINGE SQ SCH ×2 (09:22→20:52)
[2019-10-14] MEDS: ANIDULAFUNGIN 100 MG in SODIUM CHLORIDE 0.9% 100 ML IVPB SCH (09:22)
[2019-10-14] MEDS: POTASSIUM CHLORIDE 10 MEQ in WATER FOR INJECTION 1 100ML.BAG IVPB SCH ×2 (09:25→10:42)
[2019-10-14] MEDS: CEFEPIME 2 GM in SODIUM CHLORIDE 0.9% 100 ML IVPB SCH ×2 (09:29→20:52)
[2019-10-14] MEDS: LEVOTHYROXINE IVP 100 MCG/5 ML VIAL IV SCH (09:30)
[2019-10-14] MEDS: PANTOPRAZOLE 40 MG/10 ML VIAL IVP SCH ×2 (09:30→20:52)
--- NOTE | 2019-10-14 11:23 | P.PN ---
Subjective Progress Note Date: 10/14/19 Principal diagnosis: GI bleed The patient had reoperation last night for postoperative bleeding. She has been hematemesis stable overnight. Her hemoglobin has been stable at 12. She is currently on the ventilator. Patient has been extubated. She is awake. She has had issues with hypotension. She is currently receiving vasopressors. Her hemoglobin has been stable. The patient was reintubated yesterday. She has had significant ischemia of her right hand and toes. There is also ischemic changes to the skin on her abdominal wall. Objective - Vital Signs Vital signs: Vital Signs Temp 97.6 F 10/14/19 04:30 Pulse 66 10/14/19 11:15 Resp 19 10/14/19 11:15 BP 100/70 10/14/19 11:15 Pulse Ox 96 10/14/19 11:15 Intake & Output 10/13/19 10/14/19 10/14/19 18:59 06:59 18:59 Intake Total 2531.533 1787.1653 812.932 Output Total 2505 2225 695 Balance 26.533 -437.8347 117.932 Weight 77.3 kg Intake: IV 1642 576 615 Anidulafungin 100 mg In 100 100 Sodium Chloride 0.9% 100 ml @ 84 mls/hr IVPB DAILY SID Rx#:[id number] Anidulafungin 200 mg In 100 Sodium Chloride 0.9% 200 ml @ 84 mls/hr IVPB ONCE ONE Rx#:[id number] Cefepime 2 gm In Sodium 200 100 Chloride 0.9% 100 ml @ 200 mls/hr IVPB Q12HR SID Rx#:[id number] Fat Emulsion 20% 250 ml 21 In Empty Bag 1 bag @ 21 mls/hr IV DAILY@1800 SID Rx#:[id number] Mvi, Adult No.4 with Vit 385 K 10 ml Trace (Conc-1Ml/ Dose) 1 ml Parenteral Electrolytes 20 ml In Amino Acid 5%-D15w 1,000 ml @ 55 mls/hr IV . [id number] SID Rx#:[id number] Potassium Chloride 10 meq 200 In Water For Injection 1 100ml.bag @ 100 mls/hr IVPB Q1H SID Rx#: [id number] Potassium Chloride 20 meq 300 In Water For Injection 1 100ml.bag @ 50 mls/hr IVPB Q2H SID Rx#: [id number] Pressure Bag 36 36 15 Sodium Chloride 0.9% 1, 300 240 100 000 ml @ 20 mls/hr IV . Q24H SID Rx#:[id number] Sodium Phosphate 10 mmol 200 In Sodium Chloride 0.9% 100 ml @ 50 mls/hr IVPB Q2H SID Rx#:[id number] metroNIDAZOLE-NS PMX 500 200 100 100 mg In Saline 1 100ml.bag @ 100 mls/hr IVPB Q8HR SID Rx#:[id number] Intake, IV Titration 938.436 3412.1653 197.932 Amount Mvi, Adult No.4 with Vit 605 55 K 10 ml Trace (Conc-1Ml/ Dose) 1 ml Potassium Chloride 40 meq In Amino Acid 5%-D15w+Lytes*E* 1, 000 ml @ 55 mls/hr IV . [id number] SID Rx#:[id number] Mvi, Adult No.4 with Vit 1046.3333 K 10 ml Trace (Conc-1Ml/ Dose) 1 ml Potassium Chloride 60 meq Potassium Phosphate 10 mmol Magnesium Sulfate gm 1 gm In Amino Acid 5%-D15w+ Lytes*E* 1,000 ml @ 55 mls/hr IV .Q19H2M SID Rx# :[id number] Norepinephrine 8 mg In 284.533 9.832 197.932 Sodium Chloride 0.9% 250 ml @ 0.4 MCG/KG/MIN 51. 858 mls/hr IV .Q4H59M SID Rx#:[id number] Propofol 1,000 mg In 100.000 Empty Bag 1 bag @ Titrate IV .Q0M SID Rx#: [id number] Output: Drainage 270 180 50 Abdomen 270 180 50 Urine 2235 2045 645 Other: Voiding Method Indwelling Catheter Indwelling Catheter ABP, PAP, CO, CI - Last Documented Arterial Blood Pressure 120/68 - Exam Patient is on the ventilator - Gastrointestinal Gastrointestinal Comment(s): The dressing was taken down. There is evidence of ischemia of the skin at the incision site. Patient had a nasogastric tube placed by the fixture maker yester day. - Labs CBC & Chem 7: 10/14/19 04:45 10/14/19 04:45 Labs: Abnormal Lab Results - Last 24 Hours (Table) 10/13/19 10/13/19 10/13/19 Range/Units 11:40 14:02 17:52 WBC (3.8-10.6) k/uL RBC (3.80-5.40) m/uL Hgb (11.4-16.0) gm/dL Hct (34.0-46.0) % RDW (11.5-15.5) % Plt Count (150-450) k/uL Neutrophils # (Manual) (1.3-7.7) k/uL Lymphocytes # (Manual) (1.0-4.8) k/uL Eosinophils # (Manual) (0-0.7) k/uL Nucleated RBCs (0-0) /100 WBC ABG pH (7.35-7.45) ABG pO2 (83-108) mmHg ABG Total CO2 25 H (19-24) mmol/L ABG O2 Saturation 98.3 H (94-97) % Chloride (98-107) mmol/L BUN (7-17) mg/dL Glucose (74-99) mg/dL POC Glucose (mg/dL) 169 H 185 H (75-99) mg/dL Calcium (8.4-10.2) mg/dL AST (14-36) U/L Total Protein (6.3-8.2) g/dL Albumin (3.5-5.0) g/dL 10/14/19 10/14/19 10/14/19 Range/Units 00:25 00:35 01:19 WBC (3.8-10.6) k/uL RBC (3.80-5.40) m/uL Hgb (11.4-16.0) gm/dL Hct (34.0-46.0) % RDW (11.5-15.5) % Plt Count (150-450) k/uL Neutrophils # (Manual) (1.3-7.7) k/uL Lymphocytes # (Manual) (1.0-4.8) k/uL Eosinophils # (Manual) (0-0.7) k/uL Nucleated RBCs (0-0) /100 WBC ABG pH (7.35-7.45) ABG pO2 63 L (83-108) mmHg ABG Total CO2 26 H (19-24) mmol/L ABG O2 Saturation 93.4 L (94-97) % Chloride (98-107) mmol/L BUN (7-17) mg/dL Glucose (74-99) mg/dL POC Glucose (mg/dL) 199 H 195 H (75-99) mg/dL Calcium (8.4-10.2) mg/dL AST (14-36) U/L Total Protein (6.3-8.2) g/dL Albumin (3.5-5.0) g/dL 10/14/19 10/14/19 10/14/19 Range/Units 04:45 04:45 05:55 WBC 31.7 H (3.8-10.6) k/uL RBC 3.25 L (3.80-5.40) m/uL Hgb 9.3 L (11.4-16.0) gm/dL Hct 29.9 L (34.0-46.0) % RDW 17.7 H (11.5-15.5) % Plt Count 69 L (150-450) k/uL Neutrophils # (Manual) 29.16 H (1.3-7.7) k/uL Lymphocytes # (Manual) 0.63 L (1.0-4.8) k/uL Eosinophils # (Manual) 0.95 H (0-0.7) k/uL Nucleated RBCs 7 H (0-0) /100 WBC ABG pH 7.46 H (7.35-7.45) ABG pO2 70 L (83-108) mmHg ABG Total CO2 27 H (19-24) mmol/L ABG O2 Saturation (94-97) % Chloride 112 H (98-107) mmol/L BUN 34 H (7-17) mg/dL Glucose 201 H (74-99) mg/dL POC Glucose (mg/dL) (75-99) mg/dL Calcium 6.9 L (8.4-10.2) mg/dL AST 125 H (14-36) U/L Total Protein 3.3 L (6.3-8.2) g/dL Albumin 1.6 L (3.5-5.0) g/dL 10/14/19 Range/Units 06:54 WBC (3.8-10.6) k/uL RBC (3.80-5.40) m/uL Hgb (11.4-16.0) gm/dL Hct (34.0-46.0) % RDW (11.5-15.5) % Plt Count (150-450) k/uL Neutrophils # (Manual) (1.3-7.7) k/uL Lymphocytes # (Manual) (1.0-4.8) k/uL Eosinophils # (Manual) (0-0.7) k/uL Nucleated RBCs (0-0) /100 WBC ABG pH (7.35-7.45) ABG pO2 (83-108) mmHg ABG Total CO2 (19-24) mmol/L ABG O2 Saturation (94-97) % Chloride (98-107) mmol/L BUN (7-17) mg/dL Glucose (74-99) mg/dL POC Glucose (mg/dL) 172 H (75-99) mg/dL Calcium (8.4-10.2) mg/dL AST (14-36) U/L Total Protein (6.3-8.2) g/dL Albumin (3.5-5.0) g/dL Microbiology - Last 24 Hours (Table) 10/11/19 18:15 Blood Culture - Preliminary Blood No Growth after 48 hours Assessment and Plan Assessment: Status post partial gastrectomy and omColectomyectomy for gastric bleeding. Patient will continue to receive supportive care. Plan: Status post partial gastrectomy with colectomy and subsequent postoperative bleeding. Patient's he will history and stable. Her bleeding issues appear to have resolved. Patient is currently receiving therapy for her hypotension. Her condition remains guarded. She'll receive IV antibiotics and IV fluids. The patient has had a clinical deterioration in her condition. The patient's nasogastric tube will be removed due to her recent gastrectomy. Apparently Dr. Mims had a lengthy discussion with the patient's sister regarding change of CODE STATUS. The patient still currently full code.The patient's condition is quite guarded. He received supportive care.
[2019-10-14 11:45] LABS: Glucose,Whole Blood 168 mg/dL (75-99)
--- NOTE | 2019-10-14 15:55 | PN ---
PROGRESS NOTE DATE OF SERVICE: 10/14/2019 REASON FOR FOLLOWUP: Leukocytosis. INTERVAL HISTORY: Patient is currently afebrile. The patient noted to be slightly better than yesterday. She is requiring less pressor support per the RN. FiO2 is currently at 50%. No significant purulent secretion in the ET or diarrhea reported. PHYSICAL EXAMINATION: Blood pressure 114/68 with a pulse of 73, temperature 98, she is 96% on 50% FiO2. General description is a middle-aged female, intubated on the vent. RESPIRATORY SYSTEM: Unlabored breathing, clear to auscultation anteriorly. HEART: S1, S2. Regular rate and rhythm. ABDOMEN: Soft. No tenderness. Abdominal incision, some necrotic changes. EXTREMITIES: No edema of the feet. LABS: Hemoglobin 11.1, white count of 31.7, BUN of 34, creatinine 0.71. DIAGNOSTIC IMPRESSION AND PLAN: Patient with leukocytosis which is multifactorial in this patient who is status post splenectomy. Patient at this time is to continue with cefepime, Flagyl and Will monitor clinical course closely. Overall prognosis remains to be guarded. MMODL / IJN: [id number] / VERA
[2019-10-14 17:46] LABS: Glucose,Whole Blood 191 mg/dL (75-99)
[2019-10-14] MEDS: SODIUM CHLORIDE 0.9% 1,000 ML IV SCH (18:21)
--- NOTE | 2019-10-14 20:39 | PN ---
PROGRESS NOTE This patient is a 64-year-old female with multiple problems, including post partial gastrectomy, respiratory failure with intubation, history of bilateral DVT. The patient developed ischemic right arm arteries 1+ brachial by the Doppler. Right hand has ischemic changes involving the thumb and the finger with marked swelling. At this point, prognosis is guarded. Not a candidate for surgical intervention. Patient is on vasopressor. Patient is also getting Lovenox. Will follow with you. MMODL / IJN: [id number] /
--- NOTE | 2019-10-14 22:36 | P.PN ---
Progress Note - Text Progress Note Date: 10/14/19 Chief Complaint: Shortness of breath history of presenting complaint: This is a 63-year-old patient who follows with visiting physicians Dr. Vera.. Normally uses a wheelchair or a walker to get about. Chronic stable medical conditions include, coronary artery disease, COPD in an ex-smoker, chronic fibromyalgia, GERD, hyperlipidemia, essential hypertension, osteoarthritis, hypothyroid, chronic multiple sclerosis, peripheral neuropathy lower extremity, chronic urinary incontinence. Patient also was worked up at [facility] for a gastric greater curvature mass which eventually showed up to be normal smooth muscle cells. Also's chronic intermittent GI bleed from a gastric ulcer. Patient admitted to the hospital on August 06 with a diagnosis of bilateral lower extremity DVT. Could not tolerate IV heparin because of intermittent dark stools for some time. Did require blood transfusion. Anderson filter was placed. Patient had repeated admissions for GI bleed. Getting blood transfusions. Continued to refuse endoscopy. Patient was now admitted 2 weeks ago again. On this occasion she agreed to proceed with endoscopy by Dr. Eliza Solis. Biopsy did come back showing gastric mucosa. She also consented for surgery. Patient now presents with shortness of breath. Continues to have dark stools. Hemoglobin came back at 5.1. Admitted to the ICU. Yesterday on October 07-patient was taken to the operating room. Partial gastrectomy and partial splenectomy was carried out. Patient was brought back to the ICU. Patient continued to have increasing bleeding for the ROSELIA drain. Became hypotensive. Patient received another 3 units of blood. Taken back to the operating room. Several oozing spors were noted around the staple site. Further suturing was carried out. Patient was returned to the ICU. Patient received a total of 7 units of blood. Patient's white count started to climb up. ID was consulted. Antibiotics were added. Patient went into respiratory distress on October 12. Intubated [id number]. FiO2 50 and PEEP of 5. Drips include propofol norepinephrine. Telemetry shows sinus rhythm. Patient sedated. ROSELIA drain in place. Review of systems: Patient intubated Active Medications Albuterol/Ipratropium (Duoneb 0.5 Mg-3 Mg/3 Ml Soln) 3 ml INHALATION RT-QID SID Last Admin: 10/14/19 19:23 Dose: 3 ml Documented by: Albuterol/Ipratropium (Duoneb 0.5 Mg-3 Mg/3 Ml Soln) 3 ml INHALATION RT-Q2H PRN PRN Reason: Shortness Of Breath Or Wheezing Chlorhexidine Gluconate (Peridex) 15 ml MUCOUS MEM BID [facility] Last Admin: 10/14/19 20:52 Dose: 15 ml Documented by: Enoxaparin Sodium (Lovenox) 60 mg SQ Q12HR [facility] Last Admin: 10/14/19 20:52 Dose: 60 mg Documented by: Hydromorphone HCl (Dilaudid) 1 mg IVP Q1HR PRN PRN Reason: Severe Pain Last Admin: 10/12/19 14:34 Dose: 1 mg Documented by: Sodium Chloride (Saline 0.9%) 1,000 mls @ 20 mls/hr IV .Q24H [facility] Last Admin: 10/14/19 18:21 Dose: 20 mls/hr Documented by: Norepinephrine Bitartrate 8 mg (/ Sodium Chloride) 258 mls @ 51.858 mls/hr IV .Q4H59M [facility]; Protocol Last Admin: 10/14/19 20:52 Dose: 0.05 mcg/kg/min, 6.482 mls/hr Documented by: Metronidazole 500 mg/ IV (Solution) 100 mls @ 100 mls/hr IVPB Q8HR [facility] Last Admin: 10/14/19 17:09 Dose: 100 mls/hr Documented by: Anidulafungin 100 mg/ Sodium (Chloride) 100 mls @ 84 mls/hr IVPB DAILY [facility] Last Admin: 10/14/19 09:22 Dose: 84 mls/hr Documented by: Cefepime HCl 2 gm/ Sodium (Chloride) 100 mls @ 200 mls/hr IVPB Q12HR [facility] Last Admin: 10/14/19 20:52 Dose: 200 mls/hr Documented by: Propofol 1,000 mg/ IV Solution 100 mls @ 0 mls/hr IV .Q0M [facility]; Protocol Last Admin: 10/14/19 20:51 Dose: 30 mcg/kg/min, 13.914 mls/hr Documented by: Parenteral Vitamin Supplement 10 ml/ Chromium/Copper/Manganese/Seleni/Zn 1 ml/Potassium Chloride 60 meq/Potassium Phosphate 10 mmol/Magnesium Sulfate 1 gm/ Amino Ac/Electrol/Dextrose/Calcium 1,046.3333 mls @ 50 mls/hr IV .[id number] [facility] Insulin Aspart (Novolog) 0 unit SQ Q6HR [facility]; Protocol Last Admin: 10/14/19 18:22 Dose: 2 unit Documented by: Levothyroxine Sodium (Synthroid Ivp) 50 mcg IV DAILY [facility] Last Admin: 10/14/19 09:30 Dose: 50 mcg Documented by: Miscellaneous Information (Magnesium Per Protocol) 1 each MISCELLANE DAILY PRN; Protocol PRN Reason: Per Protocol Miscellaneous Information (Potassium Per Protocol) 1 each MISCELLANE DAILY PRN; Protocol PRN Reason: Per Protocol Naloxone HCl (Narcan) 0.2 mg IV Q2M PRN PRN Reason: Opioid Reversal Last Admin: 10/08/19 16:57 Dose: 0.2 mg Documented by: Nitroglycerin (Nitro-Bid Oint) 1 inch TOPICAL Q6HR [facility] Last Admin: 10/14/19 18:22 Dose: 1 inch Documented by: Pantoprazole Sodium (Protonix) 40 mg IVP BID [facility] Last Admin: 10/14/19 20:52 Dose: 40 mg Documented by: Physical examination: VITAL SIGNS: 97.1, 65, 20, 100 262, 97% on the ventilator GENERAL: Laying in bed,, intubated EYES: Pupils equal. Conjunctiva pale HEENT: Endotracheal tube in place. NECK: JVD unable to assess; masses not palpable. HEART: First and second heart sounds are normal; mild edema. LUNGS: Respiratory rate increased, decreased breath sounds. ABDOMEN: Soft, tender, dressing in place. ROSELIA drain-serosanguineous drainage, no guarding or rigidity, no masses palpable. PSYCH: Sedated INVESTIGATIONS, reviewed in the clinical context: White count 31.7 hemoglobin 9.3 platelets 69 potassium 3.7 creatinine 0.71 Previous testing: White count 8.7 hemoglobin 5.1 platelets 150 potassium 4.1 creatinine 0.65 lactic acid 2.3 Hemoglobin 8.7 on September 23 Assessment: -Acute on chronic GI bleed in a patient with known gastric mass - gastric mucosa per biopsy. Patient underwent partial gastrectomy and partial splenectomy on October 07. -Acute severe blood loss anemia from GI bleed, and postprocedure bleed-required a total of 7 units of blood -Acute hemorrhagic shock requiring norepinephrine and vasopressin-uncontrolled -Acute hypoxic respiratory failure on October 12-patient intubated-slow to respond -Paroxysmal atrial fibrillation new-onset on Cardizem drip- -Chronic lower extremity DVT -with Colton filter on 08/10/2019 -Gastric ulcer disease -Solitary gallstone, asymptomatic -Coronary artery disease -COPD in an ex-smoker -Chronic fibromyalgia -GERD -Hyperlipidemia -Essential hypertension -Primary osteoarthritis -Hypothyroid -Chronic multiple sclerosis -Peripheral neuropathy both the lower extremity -Chronic urinary incontinence -Chronic gait dysfunction uses a walker/wheelchair -Hypoalbuminemia-acute phase reactant. -Worsening leukocytosis plan: -Patient currently on IV norepinephrine, vasopressin , Intubated. on IV anidulafungin, cefepime, TPN, IV Flagyl. Prognosis guarded. Continue other medications.
[2019-10-14] MEDS: IPRATROPIUM-ALBUTEROL 3 ML NEB INHALATION PRN (23:04)
[2019-10-14 23:48] LABS: Glucose,Whole Blood 174 mg/dL (75-99)
[2019-10-15] MEDS: NITROGLYCERIN OINT 1 INCH/GM PACKET TOPICAL SCH ×5 (00:05→23:22)
[2019-10-15] MEDS: metroNIDAZOLE-NS PMX 500 MG in SALINE 1 100ML.BAG IVPB SCH ×4 (00:06→23:22)
[2019-10-15] MEDS: INSULIN ASPART (NovoLOG) 100 UNIT/ML VIAL SQ SCH ×5 (00:06→23:38)
[2019-10-15] MEDS: MVI, ADULT NO.4 WITH VIT K 10 ML, TRACE (CONC-1ML/DOSE) 1 ML, POTASSIUM CHLORIDE 60 MEQ... IV SCH ×12 (02:12→21:28)
[2019-10-15] MEDS: IPRATROPIUM-ALBUTEROL 3 ML NEB INHALATION PRN ×2 (03:12→23:05)
[2019-10-15] MEDS: NOREPINEPHRINE 8 MG in SODIUM CHLORIDE 0.9% 250 ML IV SCH ×5 (03:43→19:47)
[2019-10-15 04:57] LABS: Anisocytosis Slight; HCT 30.2 % (34.0-46.0); HGB 9.3 gm/dL (11.4-16.0); Hypochromasia Moderate; MCV 93.5 fL (80.0-100.0); Mean Platelet Volume 11.4; Platelet Count 98 k/uL (150-450); Poikilocytosis Moderate; RBC 3.23 m/uL (3.80-5.40); RDW 17.9 % (11.5-15.5)
[2019-10-15 05:10] LABS: ALT 25 U/L (4-34); AST 64 U/L (14-36); African American GFR (CKD) >90 (>60 ml/min/1.73 sqM); Albumin 1.2 g/dL (3.5-5.0); Alkaline Phosphatase 44 U/L (38-126); Anion Gap 0 mmol/L; Blood Urea Nitrogen 29 mg/dL (7-17); Carbon Dioxide 20 mmol/L (22-30); Chloride 120 mmol/L (98-107); Glucose 166 mg/dL (74-99); Magnesium 1.8 mg/dL (1.6-2.3); Non-African American GFR(CKD) >90 (>60 ml/min/1.73 sqM); Phosphorus 2.5 mg/dL (2.5-4.5); Potassium 3.6 mmol/L (3.5-5.1); Sodium 140 mmol/L (137-145); Total Bilirubin 0.3 mg/dL (0.2-1.3); Total Protein 2.6 g/dL (6.3-8.2)
[2019-10-15 05:11] LABS: ABG Base Excess -0.5 mmol/L; ABG HCO3 24 mmol/L (21-25); ABG Oxygen Saturation 96.8 % (94-97); ABG PCO2 35 mmHg (35-45); ABG PH 7.44 (7.35-7.45); ABG PO2 83 mmHg (83-108); ABG TCO2 25 mmol/L (19-24); Allen Test Performed? Yes
[2019-10-15 05:22] LABS: Calcium 5.9 mg/dL (8.4-10.2)
[2019-10-15 05:53] LABS: Band Neutrophils % 3 %; Eosinophils # (M) 0.74 k/uL (0-0.7); Lymphocytes # (M) 1.23 k/uL (1.0-4.8); Metamyelocytes # (M) 0.49 k/uL (0); Metamyelocytes % 2 %; Monocytes # (M) 1.72 k/uL (0-1.0); Neutrophils % (M) 82 %; Nucleated Red Blood Cells 14 /100 WBC (0-0); Total Cells Counted 200; WBC 24.5 k/uL (3.8-10.6)
[2019-10-15 05:54] LABS: Polychromasia Present
--- NOTE | 2019-10-15 07:04 | PN ---
PROGRESS NOTE CRITICAL CARE TIME: 32 minutes. LUCIANO / IJN: [id number] /
[2019-10-15] MEDS: IPRATROPIUM-ALBUTEROL 3 ML NEB INHALATION SCH ×4 (07:29→19:27)
--- NOTE | 2019-10-15 08:17 | PN ---
PROGRESS NOTE DATE OF SERVICE: October 15, 2019. The patient is seen again here in the intensive care unit early in the morning. She is currently sedated and on the mechanical ventilator. Currently, she is receiving norepinephrine at about 5 mcg per minute, propofol at 30 mcg/kg per minute, saline at 20 mL an hour and TPN at 50 mL an hour. Her vent settings include the volume assist- control mode rate of 22, tidal volume 350, FiO2 of 50%, PEEP of 5. Blood gases show pO2 of 83, pCO2 of 35, pH 7.44. Currently, the patient is sedated and appears in no acute distress. I have had discussions with family members about this patient. Currently, she is a FULL CODE. Family members would not want a tracheostomy and PEG tube should it come to that. Anyway, the patient does appear to be relatively stable this morning. Unfortunately, she has got diffuse anasarca and edema. She has acrocyanosis and significant purple discoloration of the toes and fingers. She also lacks peripheral pulses in the right wrist and hand. Anyway, the patient is in poor shape and as she has also developed some ischemic changes from where the incision for the gastrectomy and omentectomy were performed 7 days ago. PHYSICAL EXAMINATION: VITAL SIGNS: Current vital signs are reviewed. Temperature 97.4, heart rate 62, respiratory rate 22, blood pressure is 101/60, saturations are 97%. GENERAL: Appears in no acute distress. HEENT: Examination is grossly unremarkable. There is an orally placed endotracheal tube and NG tube. NECK: Supple. Full range of motion. No adenopathy. Neck veins are flat. CARDIOVASCULAR: Examination reveals regular rhythm and rate. Heart rate in the low 70s. Heart sounds are distant. S1, S2 normal. LUNGS: Reveal some coarse rhonchi. No wheezes. No crackles. Breath sounds are diminished throughout. ABDOMEN: Soft. No bowel sounds. EXTREMITIES: Are intact. There is diffuse edema and anasarca. There is a purple discoloration and cyanosis of the fingertips and toe tips. Some of the changes appear to be pregangrenous in nature. SKIN: Reveals diffuse areas of ecchymoses. NEUROLOGIC: Examination is difficult to assess given her sedation level. LABORATORY DATA: Current laboratory data includes a white count 24.5, hemoglobin 9.3, hematocrit 30.2, platelet count is 98,000. Blood gases show pO2 of 83, pCO2 of 35, pH 7.44. Sodium 140, potassium 3.6, chloride 120, CO2 is 20. Anion gap is 0. BUN and creatinine were 29 and 0.45. Calcium 5.9, phosphorus 2.5, magnesium 1.8, albumin 1.2. Correcting calcium for the albumin puts in a normal range. Microbiology thus far is negative including blood and sputum sampling. A chest x-ray from today shows some diffuse bilateral infiltrates. Endotracheal tube is seen above the tracheal diego. There may be atelectasis and effusions and/or infiltrates at both bases. MEDICATIONS: Medications are reviewed as are they every day. From the antibiotic standpoint, she is on Eraxis as an antifungal and cefepime. She is getting updrafts per protocol. Other medications are appropriate. The patient is also getting Flagyl. ASSESSMENT: 1. Acute hypoxemic hypercapnic respiratory failure requiring re-intubation on October 12, secondary to pulmonary edema, heart failure, and possible aspiration pneumonia as well as abdominal sepsis. 2. Postoperative day #7, status post partial gastrectomy and omentectomy for gastric bleeding with splenectomy. 3. Acute gastrointestinal bleed, likely secondary to the gastric mass. 4. Known history of coronary artery disease with previous CAD stenting. 5. History of gastroparesis. 6. History of acute on chronic anemia. 7. Chronic deep venous thrombosis of the lower extremities, status post IVC filter. 8. Chronic systolic congestive heart failure. 9. Paroxysmal atrial fibrillation. 10.History of multiple sclerosis. 11.History of ventricular tachycardia and cardiac arrest. 12.Peripheral vascular occlusive disease. 13.History of benign essential hypertension. 14.History of fibromyalgia. 15.Peripheral neuropathy. 16.Degenerative joint disease. 17.History of ESBL infection. 18.Anxiety/bipolar disorder. 19.Status post AICD placement. 20.History of ulcerative colitis and irritable bowel syndrome. PLAN: Currently, the ventilator settings are appropriate. Blood gases show very mild respiratory alkalosis. She is on norepinephrine for blood pressure support. She remains on propofol for sedation. She is getting nutrition via TPN. Overall prognosis is poor. I did have a long conversation with one of the family members yesterday. They want the patient to continue to be a FULL CODE. Apparently, the patient would not want a tracheostomy or PEG tube placement. Additional recommendations and suggestions are for forthcoming. Again overall prognosis is very poor. MMODL / IJN: [id number] /
[2019-10-15] MEDS: ENOXAPARIN 60 MG/0.6 ML SYRINGE SQ SCH ×2 (08:58→19:47)
[2019-10-15] MEDS: CHLORHEXIDINE GLUCONATE 15 ML CUP MUCOUS MEM SCH ×2 (08:58→19:46)
[2019-10-15] MEDS: CEFEPIME 2 GM in SODIUM CHLORIDE 0.9% 100 ML IVPB SCH ×2 (08:58→19:47)
--- NOTE | 2019-10-15 08:58 | XR ---
EXAMINATION TYPE: XR chest 1V portable DATE OF EXAM: 10/15/2019 COMPARISON: 10/14/2019 INDICATION: Tube placement TECHNIQUE: Single frontal view of the chest is obtained. FINDINGS: The heart size is normal. The pulmonary vasculature is normal. Bibasilar infiltrates are present. Small pleural effusions may be present. Pacemaker overlies left chest. There is an endotracheal tube present with the tip 0.8 cm above the diego. This is stable in positio n. This could be pulled back approximately 1 cm. IMPRESSION: 1. Bibasilar infiltrates with small pleural effusions, stable from comparison. 2. Endotracheal tube tip 0.8 cm above the diego. This could be pulled back approximately 1 cm. 3. Nasogastric tube is been removed.
[2019-10-15] MEDS: POTASSIUM CHLORIDE 10 MEQ in WATER FOR INJECTION 1 100ML.BAG IVPB SCH ×2 (08:59→10:48)
[2019-10-15] MEDS: PANTOPRAZOLE 40 MG/10 ML VIAL IVP SCH ×2 (08:59→19:46)
[2019-10-15] MEDS ORDERED: CALCIUM GLUCONATE 1 GM in SODIUM CHLORIDE 0.9% 100 ML IVPB ONE (09:00)
[2019-10-15] MEDS: LEVOTHYROXINE IVP 100 MCG/5 ML VIAL IV SCH (09:00)
[2019-10-15] MEDS: ANIDULAFUNGIN 100 MG in SODIUM CHLORIDE 0.9% 100 ML IVPB SCH (10:47)
--- NOTE | 2019-10-15 11:57 | P.PN ---
Subjective Principal diagnosis: GI bleed The patient had reoperation last night for postoperative bleeding. She has been hematemesis stable overnight. Her hemoglobin has been stable at 12. She is currently on the ventilator. Patient has been extubated. She is awake. She has had issues with hypotension. She is currently receiving vasopressors. Her hemoglobin has been stable. The patient was reintubated yesterday. She has had significant ischemia of her right hand and toes. There is also ischemic changes to the skin on her abdomi nal wall. The patient's leukocytosis improved. Her overall condition remains unchanged. Objective - Vital Signs Vital signs: Vital Signs Temp 97.6 F 10/15/19 08:00 Pulse 60 10/15/19 11:34 Resp 20 10/15/19 11:00 BP 82/52 10/15/19 08:30 Pulse Ox 98 10/15/19 11:00 Intake & Output 10/14/19 10/15/19 10/15/19 18:59 06:59 18:59 Intake Total 4886.026 0217.045 1044.078 Output Total 1650 505 195 Balance 249.892 624.045 849.078 Weight 77.3 kg 69.3 kg Intake: IV 1446 976 665 Anidulafungin 100 mg In 100 100 Sodium Chloride 0.9% 100 ml @ 84 mls/hr IVPB DAILY SID Rx#:[id number] Cefepime 2 gm In Sodium 100 100 100 Chloride 0.9% 100 ml @ 200 mls/hr IVPB Q12HR SID Rx#:[id number] Mvi, Adult No.4 with Vit 320 K 10 ml Trace (Conc-1Ml/ Dose) 1 ml Parenteral Electrolytes 20 ml In Amino Acid 5%-D15w 1,000 ml @ 55 mls/hr IV . [id number] SID Rx#:[id number] Mvi, Adult No.4 with Vit 250 600 250 K 10 ml Trace (Conc-1Ml/ Dose) 1 ml Potassium Chloride 60 meq Potassium Phosphate 10 mmol Magnesium Sulfate gm 1 gm In Amino Acid 5%-D15w+ Lytes*E* 1,000 ml @ 55 mls/hr IV .Q19H2M SID Rx# :[id number] Potassium Chloride 10 meq 200 In Water For Injection 1 100ml.bag @ 100 mls/hr IVPB Q1H SID Rx#: [id number] Pressure Bag 36 36 15 Sodium Chloride 0.9% 1, 240 240 100 000 ml @ 20 mls/hr IV . Q24H [facility] Rx#:[id number] metroNIDAZOLE-NS PMX 500 200 100 mg In Saline 1 100ml.bag @ 100 mls/hr IVPB Q8HR [facility] Rx#:[id number] Intake, IV Titration 453.892 153.045 379.078 Amount Calcium Gluconate 1 gm In 100 Sodium Chloride 0.9% 100 ml @ 100 mls/hr IVPB ONCE ONE Rx#:[id number] Norepinephrine 8 mg In 273.886 58.662 Sodium Chloride 0.9% 250 ml @ 0.4 MCG/KG/MIN 51. 858 mls/hr IV .Q4H59M [facility] Rx#:[id number] Potassium Chloride 10 meq 200 In Water For Injection 1 100ml.bag @ 100 mls/hr IVPB Q1H [facility] Rx#: [id number] Propofol 1,000 mg In 180.006 94.383 79.078 Empty Bag 1 bag @ Titrate IV .Q0M [facility] Rx#: [id number] Output: Drainage 300 Abdomen 300 Urine 1100 505 195 Stool 250 Other: Voiding Method Indwelling Catheter Indwelling Catheter Indwelling Catheter ABP, PAP, CO, CI - Last Documented Arterial Blood Pressure 100/52 - Gastrointestinal Gastrointestinal Comment(s): Abdomen soft. Incision is clean. There is evidence of some skin ischemia. - Labs CBC & Chem 7: 10/15/19 04:45 10/15/19 04:30 Labs: Abnormal Lab Results - Last 24 Hours (Table) 10/14/19 10/14/19 10/15/19 Range/Units 17:45 23:46 04:30 WBC (3.8-10.6) k/uL RBC (3.80-5.40) m/uL Hgb (11.4-16.0) gm/dL Hct (34.0-46.0) % RDW (11.5-15.5) % Plt Count (150-450) k/uL Neutrophils # (Manual) (1.3-7.7) k/uL Monocytes # (Manual) (0-1.0) k/uL Eosinophils # (Manual) (0-0.7) k/uL Metamyelocytes # (Man) (0) k/uL Nucleated RBCs (0-0) /100 WBC ABG Total CO2 (19-24) mmol/L Chloride 120 H (98-107) mmol/L Carbon Dioxide 20 L (22-30) mmol/L BUN 29 H (7-17) mg/dL Creatinine 0.45 L (0.52-1.04) mg/dL Glucose 166 H (74-99) mg/dL POC Glucose (mg/dL) 191 H 174 H (75-99) mg/dL Calcium 5.9 L* (8.4-10.2) mg/dL AST 64 H (14-36) U/L Total Protein 2.6 L (6.3-8.2) g/dL Albumin 1.2 L (3.5-5.0) g/dL 10/15/19 10/15/19 Range/Units 04:45 05:07 WBC 24.5 H (3.8-10.6) k/uL RBC 3.23 L (3.80-5.40) m/uL Hgb 9.3 L (11.4-16.0) gm/dL Hct 30.2 L (34.0-46.0) % RDW 17.9 H (11.5-15.5) % Plt Count 98 L (150-450) k/uL Neutrophils # (Manual) 20.80 H (1.3-7.7) k/uL Monocytes # (Manual) 1.72 H (0-1.0) k/uL Eosinophils # (Manual) 0.74 H (0-0.7) k/uL Metamyelocytes # (Man) 0.49 H (0) k/uL Nucleated RBCs 14 H (0-0) /100 WBC ABG Total CO2 25 H (19-24) mmol/L Chloride (98-107) mmol/L Carbon Dioxide (22-30) mmol/L BUN (7-17) mg/dL Creatinine (0.52-1.04) mg/dL Glucose (74-99) mg/dL POC Glucose (mg/dL) (75-99) mg/dL Calcium (8.4-10.2) mg/dL AST (14-36) U/L Total Protein (6.3-8.2) g/dL Albumin (3.5-5.0) g/dL Microbiology - Last 24 Hours (Table) 10/11/19 18:15 Blood Culture - Preliminary Blood No Growth after 72 hours Assessment and Plan Plan: Status post partial gastrectomy and splenic vein with postoperative bleeding. Patient condition remains guarded. She'll continue have supportive care.
[2019-10-15 12:04] LABS: Glucose,Whole Blood 197 mg/dL (75-99)
--- NOTE | 2019-10-15 15:19 | PN ---
PROGRESS NOTE DATE OF SERVICE: 10/15/2019 REASON FOR FOLLOWUP: Leukocytosis. INTERVAL HISTORY: The patient is currently afebrile. The patient remains to be intubated on the vent. Hemodynamically borderline though FiO2 is currently stable, though and 50% has been provisionary diarrhea, all this has been reported. PHYSICAL EXAMINATION: Blood pressure 114/61, pulse of 72, temperature of 97.6. He is 97%,on 50% FiO2. General description is a middle-aged female, intubated on the vent. RESPIRATORY SYSTEM: Unlabored breathing, clear to auscultation anteriorly. HEART: S1, S2. Regular rate and rhythm. ABDOMEN: Soft,. mildly distended, no rigidity. LABS: Hemoglobin 9.1, white count of 24.5 BUN of 29, creatinine 0.45. 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 The patient is covered broadly with cefepime, Flagyl and Eraxis to continue and monitor clinical course closely. MMODL / IJN: [id number] /
--- NOTE | 2019-10-15 15:46 | P.PN ---
Progress Note - Text Progress Note Date: 10/15/19 Chief Complaint: Shortness of breath history of presenting complaint: This is a 63-year-old patient who follows with visiting physicians Dr. Vera.. Normally uses a wheelchair or a walker to get about. Chronic stable medical conditions include, coronary artery disease, COPD in an ex-smoker, chronic fibromyalgia, GERD, hyperlipidemia, essential hypertension, osteoarthritis, hypothyroid, chronic multiple sclerosis, peripheral neuropathy lower extremity, chronic urinary incontinence. Patient also was worked up at [facility] for a gastric greater curvature mass which eventually showed up to be normal smooth muscle cells. Also's chronic intermittent GI bleed from a gastric ulcer. Patient admitted to the hospital on August 06 with a diagnosis of bilateral lower extremity DVT. Could not tolerate IV heparin because of intermittent dark stools for some time. Did require blood transfusion. Protem filter was placed. Patient had repeated admissions for GI bleed. Getting blood transfusions. Continued to refuse endoscopy. Patient was now admitted 2 weeks ago again. On this occasion she agreed to proceed with endoscopy by Dr. Eliza Solis. Biopsy did come back showing gastric mucosa. She also consented for surgery. Patient now presents with shortness of breath. Continues to have dark stools. Hemoglobin came back at 5.1. Admitted to the ICU. Yesterday on October 07-patient was taken to the operating room. Partial gastrectomy and partial splenectomy was carried out. Patient was brought back to the ICU. Patient continued to have increasing bleeding for the ROSELIA drain. Became hypotensive. Patient received another 3 units of blood. Taken back to the operating room. Several oozing spors were noted around the staple site. Further suturing was carried out. Patient was returned to the ICU. Patient received a total of 7 units of blood. Patient's white count started to climb up. ID was consulted. Antibiotics were added. Patient went into respiratory distress on October 12. Intubated [id number]. FiO2 15 of PEEP of 5. Drips include IV propofol, IV norepinephrine. Also getting PPN. Patient sedated. ROSELIA drain. Dr. Monet spoke to patient's family member yesterday. Patient remained full code.. Review of systems: Patient intubated Active Medications Albuterol/Ipratropium (Duoneb 0.5 Mg-3 Mg/3 Ml Soln) 3 ml INHALATION RT-QID SID Last Admin: 10/15/19 15:06 Dose: 3 ml Documented by: Albuterol/Ipratropium (Duoneb 0.5 Mg-3 Mg/3 Ml Soln) 3 ml INHALATION RT-Q2H PRN PRN Reason: Shortness Of Breath Or Wheezing Last Admin: 10/15/19 03:12 Dose: 3 ml Documented by: Chlorhexidine Gluconate (Peridex) 15 ml MUCOUS MEM BID [facility] Last Admin: 10/15/19 08:58 Dose: 15 ml Documented by: Enoxaparin Sodium (Lovenox) 60 mg SQ Q12HR [facility] Last Admin: 10/15/19 08:58 Dose: 60 mg Documented by: Hydromorphone HCl (Dilaudid) 1 mg IVP Q1HR PRN PRN Reason: Severe Pain Last Admin: 10/12/19 14:34 Dose: 1 mg Documented by: Sodium Chloride (Saline 0.9%) 1,000 mls @ 20 mls/hr IV .Q24H [facility] Last Admin: 10/14/19 18:21 Dose: 20 mls/hr Documented by: Norepinephrine Bitartrate 8 mg (/ Sodium Chloride) 258 mls @ 51.858 mls/hr IV .Q4H59M [facility]; Protocol Last Admin: 10/15/19 15:28 Dose: Not Given Documented by: Metronidazole 500 mg/ IV (Solution) 100 mls @ 100 mls/hr IVPB Q8HR [facility] Last Admin: 10/15/19 15:27 Dose: 100 mls/hr Documented by: Anidulafungin 100 mg/ Sodium (Chloride) 100 mls @ 84 mls/hr IVPB DAILY [facility] Last Admin: 10/15/19 10:47 Dose: 84 mls/hr Documented by: Cefepime HCl 2 gm/ Sodium (Chloride) 100 mls @ 200 mls/hr IVPB Q12HR [facility] Last Admin: 10/15/19 08:58 Dose: 200 mls/hr Documented by: Propofol 1,000 mg/ IV Solution 100 mls @ 0 mls/hr IV .Q0M [facility]; Protocol Last Admin: 10/15/19 15:27 Dose: 30 mcg/kg/min, 13.914 mls/hr Documented by: Parenteral Vitamin Supplement 10 ml/ Chromium/Copper/Manganese/Seleni/Zn 1 ml/Potassium Chloride 60 meq/Potassium Phosphate 10 mmol/Magnesium Sulfate 1 gm/ Amino Ac/Electrol/Dextrose/Calcium 1,046.3333 mls @ 50 mls/hr IV .[id number] [facility] Last Admin: 10/15/19 02:12 Dose: 50 mls/hr Documented by: Insulin Aspart (Novolog) 0 unit SQ Q6HR [facility]; Protocol Last Admin: 10/15/19 12:38 Dose: 2 unit Documented by: Levothyroxine Sodium (Synthroid Ivp) 50 mcg IV DAILY [facility] Last Admin: 10/15/19 09:00 Dose: 50 mcg Documented by: Miscellaneous Information (Magnesium Per Protocol) 1 each MISCELLANE DAILY PRN; Protocol PRN Reason: Per Protocol Miscellaneous Information (Potassium Per Protocol) 1 each MISCELLANE DAILY PRN; Protocol PRN Reason: Per Protocol Naloxone HCl (Narcan) 0.2 mg IV Q2M PRN PRN Reason: Opioid Reversal Last Admin: 10/08/19 16:57 Dose: 0.2 mg Documented by: Nitroglycerin (Nitro-Bid Oint) 1 inch TOPICAL Q6HR [facility] Last Admin: 10/15/19 12:39 Dose: 1 inch Documented by: Pantoprazole Sodium (Protonix) 40 mg IVP BID [facility] Last Admin: 10/15/19 08:59 Dose: 40 mg Documented by: Physical examination: VITAL SIGNS: 97.6, 65, 19, 101/59, 98% on the ventilator GENERAL: Laying in bed,, intubated EYES: Pupils equal. Conjunctiva pale HEENT: Endotracheal tube in place. NECK: JVD unable to assess; masses not palpable. HEART: First and second heart sounds are normal; mild edema. LUNGS: Respiratory rate increased, decreased breath sounds. ABDOMEN: Soft, tender, dressing in place. ROSELIA drain-serosanguineous drainage, no guarding or rigidity, no masses palpable. PSYCH: Sedated INVESTIGATIONS, reviewed in the clinical context: -White count 24.5 hemoglobin 9.3 platelets 98 potassium 3.6 bun 29 creatinine 0.45 albumin 1.2 Chest [id number]-len-lhcgswybh infiltrates Previous testing: White count 8.7 hemoglobin 5.1 platelets 150 potassium 4.1 creatinine 0.65 lactic acid 2.3 Hemoglobin 8.7 on September 23 Assessment: -Acute on chronic GI bleed in a patient with known gastric mass - gastric mucosa per biopsy. Patient underwent partial gastrectomy and partial splenectomy on October 07. -Acute severe blood loss anemia from GI bleed, and postprocedure bleed-required a total of 7 units of blood -Acute hemorrhagic shock requiring norepinephrine -uncontrolled -Acute hypoxic respiratory failure on October 12-patient intubated-slow to respond -Paroxysmal atrial fibrillation new-onset on Cardizem drip- -Chronic lower extremity DVT -with Colton filter on 08/10/2019 -Gastric ulcer disease -Solitary gallstone, asymptomatic -Coronary artery disease -COPD in an ex-smoker -Chronic fibromyalgia -GERD -Hyperlipidemia -Essential hypertension -Primary osteoarthritis -Hypothyroid -Chronic multiple sclerosis -Peripheral neuropathy both the lower extremity -Chronic urinary incontinence -Chronic gait dysfunction uses a walker/wheelchair -Hypoalbuminemia-acute phase reactant. -Worsening leukocytosis plan: -Patient currently on IV norepinephrine, , Intubated. on IV anidulafungin, cefepime, TPN, IV Flagyl. Per family member patient to remain full code. Advanced care planning: I spoke to patient's sister Sarahy Munson, telephone number [phone]. Given update at length the patient's overall condition. She does understand well the patient rather critical. Not really improving. She also expressed that patient probably would not want to be in this condition.. Patient probably will not not opted for a tracheostomy given that this is small former surgery. Several questions were answered. She is going into work today. She will come in to see the patient tomorrow. Very possible she may make the patient hospice in that case. Meantime continue current medication treatment plan. About 20 minutes was spent for ACP
[2019-10-15 17:08] LABS: Glucose,Whole Blood 233 mg/dL (75-99)
[2019-10-15] MEDS: SODIUM CHLORIDE 0.9% 1,000 ML IV SCH (17:54)
[2019-10-15 23:36] LABS: Glucose,Whole Blood 238 mg/dL (75-99)
[2019-10-16] MEDS: NOREPINEPHRINE 8 MG in SODIUM CHLORIDE 0.9% 250 ML IV SCH ×5 (02:30→19:53)
[2019-10-16] MEDS: IPRATROPIUM-ALBUTEROL 3 ML NEB INHALATION PRN ×2 (03:17→08:57)
[2019-10-16 05:18] VITALS: PULSE 60
[2019-10-16 05:18] LABS: ABG Base Excess -3.1 mmol/L; ABG HCO3 22 mmol/L (21-25); ABG Oxygen Saturation 98.3 % (94-97); ABG PCO2 34 mmHg (35-45); ABG PH 7.41 (7.35-7.45); ABG PO2 105 mmHg (83-108); ABG TCO2 23 mmol/L (19-24); Allen Test Performed? Yes
[2019-10-16 05:36] LABS: Anisocytosis Slight; HCT 31.9 % (34.0-46.0); HGB 9.9 gm/dL (11.4-16.0); Hypochromasia Marked; MCH 29.9 pg (25.0-35.0); MCHC 31.1 g/dL (31.0-37.0); MCV 96.2 fL (80.0-100.0); Macrocytosis Slight; Mean Platelet Volume 12.3; Platelet Count 131 k/uL (150-450); Poikilocytosis Moderate; RBC 3.32 m/uL (3.80-5.40); RDW 18.3 % (11.5-15.5)
[2019-10-16 05:41] LABS: ALT 24 U/L (4-34); AST 44 U/L (14-36); African American GFR (CKD) >90 (>60 ml/min/1.73 sqM); Albumin 1.5 g/dL (3.5-5.0); Alkaline Phosphatase 55 U/L (38-126); Anion Gap 0 mmol/L; Blood Urea Nitrogen 32 mg/dL (7-17); Calcium 7.8 mg/dL (8.4-10.2); Carbon Dioxide 22 mmol/L (22-30); Chloride 119 mmol/L (98-107); Glucose 179 mg/dL (74-99); Magnesium 2.3 mg/dL (1.6-2.3); Non-African American GFR(CKD) >90 (>60 ml/min/1.73 sqM); Phosphorus 3.2 mg/dL (2.5-4.5); Potassium 5.6 mmol/L (3.5-5.1); Sodium 141 mmol/L (137-145); Total Bilirubin 0.4 mg/dL (0.2-1.3); Total Protein 3.1 g/dL (6.3-8.2)
[2019-10-16 06:31] LABS: Band Neutrophils % 16 %; Eosinophils # (M) 0.21 k/uL (0-0.7); Lymphocytes # (M) 1.85 k/uL (1.0-4.8); Metamyelocytes # (M) 0.21 k/uL (0); Metamyelocytes % 1 %; Monocytes # (M) 1.03 k/uL (0-1.0); Neutrophils % (M) 69 %; Nucleated Red Blood Cells 23 /100 WBC (0-0); Total Cells Counted 200; WBC 20.5 k/uL (3.8-10.6)
[2019-10-16 06:33] LABS: Polychromasia Present
[2019-10-16 06:34] LABS: Large Platelets Present
[2019-10-16 06:41] LABS: Howell-Jolly Bodies Present
[2019-10-16] MEDS: INSULIN ASPART (NovoLOG) 100 UNIT/ML VIAL SQ SCH ×3 (07:05→18:51)
[2019-10-16] MEDS: NITROGLYCERIN OINT 1 INCH/GM PACKET TOPICAL SCH ×3 (07:06→18:52)
--- NOTE | 2019-10-16 07:25 | XR ---
EXAMINATION TYPE: XR chest 1V portable DATE OF EXAM: 10/16/2019 COMPARISON: Prior chest x-ray 10/15/2019 HISTORY: Intubated TECHNIQUE: Single frontal view of the chest is obtained. FINDINGS: Patient is rotated. Endotracheal tube is overlying the tracheal air column in a stable pos ition. There is no evident pneumothorax. Generators present in the left pectoral region, there is a l ead in the right ventricle. Heart size is stable. Bibasilar increased attenuation persists. There is no evident pneumothorax. There are overlying cardiac leads. Drain is present in the left upper quadra nt. IMPRESSION: Probable bibasilar effusions and associated atelectasis edema, correlate to exclude pneu monia. Stable endotracheal tube placement.
--- NOTE | 2019-10-16 08:32 | P.PN ---
Subjective Progress Note Date: 10/16/19 Principal diagnosis: GI bleeding, status post partial gastrectomy This is a 64-year-old female with history of multiple medical problems, she was recently inpatient for upper GI bleeding secondary to stomach mass. Workup including EGD and biopsy of the mass was basically nondiagnostic. Patient came into the ER yesterday complaining of shortness of breath, and also complaining of melanotic stools. Denies any abdominal pain, denies any cough, no wheezing, no fever, no chills, no hemoptysis. Patient was noted to have extremely low hemoglobin of 5.1. Patient was also noted to have low sodium of 129. And positive occult blood. Considering her extremely low hemoglobin, patient was admitted, started on blood transfusion, she received so far 1 unit of packed RBCs, and we were asked to see her on consultation because the patient was admitted to the ICU. GI consultation is pending. Patient was recently discharged from the hospital on 09/24/19, she had multiple admissions for GI bleeding, and on her last admission she underwent EGD and she was found to have a gastric mass. Tissue biopsy has been negative for malignancy. She was seen at the time by surgery, and recommended that the patient gets transferred to a tertiary care center. And her primary care physician was notified by the discharge physician that the patient will eventually need to be transferred to a tertiary care center like [facility]. Apparently this was never done. Patient is not on any anti-coagulation therapy. She is not on any blood thinners. I saw the patient in the ICU, and she seemed to be hemodynamically stable. She received already 1 unit of packed RBCs, and she is to receive another unit in the next hour or so. Patient is on 2 L nasal cannula, she has IV fluid at O but I will increase the IV fluid to 75 mL per hour. She was noted to have swelling of her lower extremities, and redness with cellulitis of lower extremities. Hence I recommended ultrasound of lower extremities and recommended. Patient was reevaluated today on 10/08/19, remains in the ICU, patient is scheduled to undergo partial gastrectomy today. This will be done by Dr. Chauhan. Yesterday the patient was diagnosed as having deep vein thrombosis, and we later determined that the patient already had a [place] filter placement in the past. Hence the patient will be cleared for surgical intervention by general surgery today for partial gastrectomy. Patient received a total of 2 units of packed RBCs since admission, hemoglobin today is 7.3, and I will give her another unit of blood before she goes down to the operating room. Her IV fluid is at KVO she is on 2 L nasal cannula with O2 saturation of 99%. Her urine output has been low overnight, and I increased her IV fluid maintenance today. Patient had 1 large brown bowel movement, no bleeding, and no abdominal pain. Her IV fluid was increased to 100 mL/h, and she will receive 1 unit of packed RBCs today. Patient was reevaluated today on 10/09/19, I saw this patient around 8 AM, yesterday, patient had a very carlos postoperative course. Shortly after she arrived to the ICU, patient developed worsening postoperative bleeding, this was quite extensive, patient received multiple units of packed RBCs, received fresh frozen plasma, she had to be reintubated, and her blood pressure was low. Surgery was notified, patient was taken back to the operating room, and there was some evidence of generalized oozing. The bleeding was controlled in the operating room. Patient came back to the ICU on mechanical ventilation, and she remains on fluids, she is on norepinephrine at 0.5 mcg/kg/m, she is on assist control rate of 2410 volume of 325 FiO2 50% and PEEP of 5. ABG this morning showed a pO2 of 122 pCO2 of 42 pH of 7.31. Urine output is marginal, hence I recommended a dose of Lasix 60 mg IV push. Chest x-ray showed evidence of atelectasis, possible infiltrate in the left lower lobe, but clinically the fin dings are mostly findings of atelectasis in the left lower lobe. Patient was given a weaning trial with CPAP, and she seemed to tolerate that weaning trial fairly well. Hence I recommended extubating the patient. Labs were all reviewed, chest x-ray was reviewed, and the operative reports from surgery were reviewed. Hemoglobin today is 12.6. WBC count is 18.2. Platelets are 51,000. Electrolytes are normal renal profile is normal in spite of the fact the patient may have sustained some acute tubular necrosis or acute kidney injury, but not seen on her labs today yet. Again her urine output is poor but she'll be given Lasix 1. Patient received significant amount of fluids and blood products yesterday after her initial surgery. Patient was reevaluated today on 10/10/19, remains in the ICU, patient developed hypotension last night, she also developed atrial fibrillation with RVR. Given Cardizem and placed on a Cardizem drip at 5 mg per hour. She also required placement on vasopressin, and norepinephrine. Her norepinephrine dose was as high as 0.6, and vasopressin at 0.04. Overnight the patient lost her arterial line, hence I was able to place a new femoral arterial line. Patient's ABG on 2 L nasal cannula showed a pO2 of 50 pCO2 of 36 pH of 7.27, hence I gave the patient 1 amp of bicarb, increase her FiO2 to 5 L. IV fluid is at 100 mL per hour, and I recommended Lasix 40 mg IV push 1, and I will cut down her IV fluid to KVO. Chest x-ray showed mild interstitial edema and bilateral pleural effusions. With atelectasis especially at the left base. Nurse taking care of the patient could not draw blood from her Cordis in the right cervical region, hence a triple-lumen catheter was placed today in the groin, and a right femoral arterial line was also placed. Today after arterial line was placed, noted that her blood pressure from the arterial line was much higher than what we were getting on the cough. Hence were able to titrate the norepinephrine down to 0.15. And were still tapering. Her vasopressin will be titrated later. And Cardizem was discontinued patient converted to normal sinus rhythm this morning. Electrolytes are normal bicarb is 17 however creatinine is 1.14. Hemoglobin is holding at 11.6. WBC count of 17.0 Patient was reevaluated today on 10/11/19, remains in the ICU. Remains on vasopressin at 0.04 units per minute, she is off norepinephrine. Her IV fluid is at 100 mL/h and I cut it down to 50 mL per hour she is on TPN at 3 0 mL/h. Urine output is excellent at 1 50 mL per hour. Patient is on room air, denies any shortness of breath, chest x-ray showed bibasilar interstitial edema or infiltrates. Hence I recommended cutting down her IV fluid, and I added empiric antibiotics in the form of clindamycin and cefepime. Patient is ALLERGIC to penicillin, considering the patient is diuresing and her own, I will not add La six at this point. But I will cut down her IV fluid and continue TPN. Patient is denying any shortness of breath, no cough, denies any nausea vomiting or abdominal pain. WBC count is 27.2 hemoglobin is 13 platelets are 142,000. Basic metabolic profile showed low potassium of 3.4 and normal renal profile. Patient was reevaluated today on 10/12/19, patient remains in the ICU, remains on 5 L nasal cannula. On norepinephrine at 0.08, she is also on vasopressin at 0.04, however when I evaluated the patient a blood pressure was excellent, and her mean was in the 90s. Recommended stopping norepinephrine. And to titrate the vasopressin as directed. Patient denies any specific complaints, she remains on Lasix at 40 mg every 12 hours, remains on Eraxis cefepime and on Flagyl. Patient is also on TPN. Overall the patient is doing better than expected. Pathology came back negative for malignancy. Except she was found to have nonviable omentum. White count today is rising 32.8 hemoglobin is 10.7. Platelets are 76,000. Direct was abnormal except for low potassium of 3.1 being corrected as per protocol. Patient was reevaluated today on 10/13/19, remains in the ICU, however the patient developed significant vasospasm and ischemic changes in the tips of her fingers bilaterally, right more so than left. Hence I recommended that the patient goes on Lovenox yesterday, I also recommended a vascular surgery evaluation. This morning, the patient is noted to be quite tachypneic, and ABG showed a pO2 of 37 pCO2 of 52 pH of 7.30. Could not establish a CODE STATUS with the patient lindsey use of her profound hypoxia and hypercapnia. Tried to reach family and discussed the CODE STATUS, no one could be reached. Hence I recommended intubating the patient and I did, patient was placed on mechanical ventilation. And she is presently on FiO2 of 80%, tidal volume is 09/10/1949 assist-control rate of 22 and PEEP of 5. Repeat ABG showed a pO2 of 106 he CO2 of 48 pH of 7.31. Chest x-ray post intubation showed the endotracheal tube about to see him above the diego, the orogastric tube is in the GE junction, and the chest x-ray showed diffuse bilateral interstitial infiltrates. And suspect some component of interstitial edema. Patient had to be placed back on vasopressin and pres ently on 0.01 units per minute, she is also on norepinephrine at 0.03 mcg/kg/m. Propofol is at 20 mcg/kg/m, IV fluid is at KVO, TPN is at 55 mL per hour. Lasix was increased to 40 mg IV push every 12 hours, Lovenox will remain the same at 60 mg subcu every 12 hours. Otherwise he'll continue present supportive care measures. WBC count remains elevated at 35.8 hemoglobin is 10.4. Basic metabolic profile is normal except for low potassium being corrected as per protocol. On 10/14/2019 patient seen in follow-up in the intensive care unit, she remains sedated, intubated on mechanical ventilator, current vent settings are assist- control with a rate of 22, tidal volume 350, FiO2 60% and PEEP of 5, this morning blood gases show pO2 of 70, pCO2 of 36 and pH of 7.46. Current IVs include 0.9 at a rate of 20 ML per hour, levo fed at 7 mics per minute, propofol at 32 mics per kilo per minute, vasopressin at 0.1 units per minutes, and TPN at a rate of 55 ML per hour. Patient has been afebrile, current antibiotic coverage includes cefepime, Eraxis, and Flagyl so far sputum and blood cultures have been negative to date. Today's labs have been reviewed, showing white blood cell count 31.7, hemoglobin of 9.3, platelet count is 69, sodium is 140, potassium 3.7, chloride is 112, CO2 is 26, B1 is 34, creatinine 0.71. Patient is in sinus mechanism with a rate of 60 BPM, today's chest x-ray has been reviewed showing stable appearance of bibasilar opacities. Patient remains on Lasix at 40 mg every 8 hours, and she is in -1.3 fluid balance over the last 24 hours. No signs of active bleeding, NG tube is in, however no feeding are infusing through it, patient is on TPN for nutritional support. Patient's abdominal incision is covered with a dressing, patient is having weeping from the abdominal incision, acquiring frequent dressing changes, right-sided ROSELIA drain draining serosanguineous output has been 450 ML of thin serosanguineous output in last 24 hours. Patient has ischemic changes on the tips of her fingers bilaterally more so on the right, and nitroglycerin patches are being applied to the right hand, also ischemic changes involving toes on bilateral feet, Doppler pulses are present in bilateral pedal and posttibial areas, patient remains on Lovenox at 60 mg every 12 hours. Lung sounds are clear, diminished at the bases. Abdomen is soft, nontender. Patient is diuresing, making urine in the order of 150-200 ML per hour. On 10/16/2019 patient seen in follow-up in the intensive care unit, she remains sedated, intubated on mechanical ventilator, current vent settings are assist- control with a rate of 22, tidal vital 350, FiO2 60% and PEEP of 5, this morning his blood gases showed pO2 of 105, pCO2 of 34, and pH of 7.41. Recurrent IV drips include 0.9 normal saline at a rate of 20 ML per hour, levo fed is at 6 mics per minute, Diprivan and is at 30 mics per kilo per minute, and TPN is at 50 ML per hour. No enteral feedings have been started yet per surgical recommendations, patient is status post partial gastrectomy and omentectomy for gastric bleeding with splenectomy, today is postoperative day #8. Patient has developed vasospasm and ischemic changes in the tips of her fingers bilaterally, right more so than the left. On today's exam the digits on her right hand are now turning black. Nitropaste has been applied per vascular surgery recommend ations, there is also ischemic changes/significant ecchymosis involving the mid abdominal incision along the staple line. Significant weeping of serous drainage from the bernardo, wearing frequent dressing changes. Right-sided ROSELIA drain is putting out serous output. Patient has significant generalized swelling, anasarca. Today's chest x-ray has been reviewed showing bilateral pleural effusions and bibasilar atelectasis. Patient has had no fever, however this morning his temp was 95.8F. Remains on antibiotics including cefepime, Eraxis, Flagyl. So far sputum and blood cultures have shown no growth. Lab work has been reviewed showing downtrending white blood cell count 20.5, hemoglobin is 9.9, platelet count is 69, sodium is 141, potassium is 5.6, chloride is 119, CO2 is 22, B1 is 32, creatinine is 0.56. Sounds are clear, diminished at the bases, abdomen is soft, nontender. Patient is producing urine in the order of 35-40 ML per hour. Doppler pulses are present in bilateral pe yessenia and posttibial areas, patient remains on Lovenox at 60 mg every 12 hours. Objective - Vital Signs Vital signs: Vital Signs Temp 95.8 F L 10/16/19 04:00 Pulse 61 10/16/19 07:00 Resp 20 10/16/19 07:00 BP 85/54 10/15/19 12:30 Pulse Ox 98 10/16/19 07:00 Intake & Output 10/15/19 10/16/19 10/16/19 18:59 06:59 18:59 Intake Total 6041.684 8003.138 173 Output Total 495 530 35 Balance 0807.686 5248.138 138 Weight 71.4 kg Intake: IV 926 576 23 Anidulafungin 100 mg In 100 Sodium Chloride 0.9% 100 ml @ 84 mls/hr IVPB DAILY SID Rx#:[id number] Cefepime 2 gm In Sodium 100 100 Chloride 0.9% 100 ml @ 200 mls/hr IVPB Q12HR SID Rx#:[id number] Mvi, Adult No.4 with Vit 250 K 10 ml Trace (Conc-1Ml/ Dose) 1 ml Potassium Chloride 60 meq Potassium Phosphate 10 mmol Magnesium Sulfate gm 1 gm In Amino Acid 5%-D15w+ Lytes*E* 1,000 ml @ 55 mls/hr IV .Q19H2M SID Rx# :[id number] Pressure Bag 36 36 3 Sodium Chloride 0.9% 1, 240 240 20 000 ml @ 20 mls/hr IV . Q24H SID Rx#:[id number] metroNIDAZOLE-NS PMX 500 200 200 mg In Saline 1 100ml.bag @ 100 mls/hr IVPB Q8HR [facility] Rx#:[id number] Intake, IV Titration 5715.571 2055.138 150 Amount Calcium Gluconate 1 gm In 100 Sodium Chloride 0.9% 100 ml @ 100 mls/hr IVPB ONCE ONE Rx#:[id number] Mvi, Adult No.4 with Vit 550 1513.333 50 K 10 ml Trace (Conc-1Ml/ Dose) 1 ml Potassium Chloride 60 meq Potassium Phosphate 10 mmol Magnesium Sulfate gm 1 gm In Amino Acid 5%-D15w+ Lytes*E* 1,000 ml @ 50 mls/hr IV .[id number] [facility]ID Rx #:[id number] Norepinephrine 8 mg In 145.805 Sodium Chloride 0.9% 250 ml @ 0.4 MCG/KG/MIN 51. 858 mls/hr IV .Q4H59M [facility]ID Rx#:[id number] Potassium Chloride 10 meq 200 In Water For Injection 1 100ml.bag @ 100 mls/hr IVPB Q1H [facility] Rx#: [id number] Propofol 1,000 mg In 164.417 100 100 Empty Bag 1 bag @ Titrate IV .Q0M SID Rx#: [id number] Output: Urine 495 530 35 Other: Voiding Method Indwelling Catheter Indwelling Catheter ABP, PAP, CO, CI - Last Documented Arterial Blood Pressure 101/58 - Exam GENERAL EXAM: Sedated, intubated, 64-year-old female, chronically ill-looking, current vent settings are assist-control with a rate of 22, tidal volume 350, FiO2 50% and PEEP of 5, comfortable in no apparent distress. Pallor and edema involving bilateral extremities, with ischemic changes involving the digits of bilateral hands, right greater than left, and involving digits of lower extremities. Generalized anasarca HEAD: Normocephalic/atraumatic. EYES: Normal reaction of pupils, equal size. Conjunctiva pink, sclera white. NOSE: Clear with pink turbinates. NG tube is present, clamped THROAT: No erythema or exudates. NECK: No masses, no JVD, no thyroid enlargement, no adenopathy. CHEST: No chest wall deformity. Symmetrical expansion. LUNGS: Equal air entry with no crackles, wheeze, rhonchi or dullness. CVS: Regular rate and rhythm, normal S1 and S2, no gallops, no murmurs, no rubs ABDOMEN: Soft, nontender. No hepatosplenomegaly, normal bowel sounds, no guarding or rigidity. Midabdominal incision covered with a surgical dressing, right-sided ROSELIA drain in place, weeping of clear fluid from the incisional area, ABDs a covering the abdominal incision EXTREMITIES: No clubbing, nonpitting edema involving hands and feet, cyanosis and ischemic changes involving the digits of bilateral hands and feet, right hand having more pronounced ischemic changes, on today's exam the digits on the right hand are black, and Doppler pulses in bilateral pedal and posttibial, radial pulse is nonpalpable, right brachial pulse is palpable, palpable left radial and brachial pulse MUSCULOSKELETAL: Muscle strength and tone normal. SPINE: No scoliosis or deformity SKIN: No rashes CENTRAL NERVOUS SYSTEM: Intubated, sedated No focal deficits, tone is normal in all 4 extremities. - Labs CBC & Chem 7: 10/16/19 04:44 10/16/19 04:44 Labs: Abnormal Lab Results - Last 24 Hours (Table) 10/15/19 10/15/19 10/15/19 Range/Units 12:02 17:07 23:34 WBC (3.8-10.6) k/uL RBC (3.80-5.40) m/uL Hgb (11.4-16.0) gm/dL Hct (34.0-46.0) % RDW (11.5-15.5) % Plt Count (150-450) k/uL Neutrophils # (Manual) (1.3-7.7) k/uL Monocytes # (Manual) (0-1.0) k/uL Metamyelocytes # (Man) (0) k/uL Nucleated RBCs (0-0) /100 WBC ABG pCO2 (35-45) mmHg ABG O2 Saturation (94-97) % Potassium (3.5-5.1) mmol/L Chloride (98-107) mmol/L BUN (7-17) mg/dL Glucose (74-99) mg/dL POC Glucose (mg/dL) 197 H 233 H 238 H (75-99) mg/dL Calcium (8.4-10.2) mg/dL AST (14-36) U/L Total Protein (6.3-8.2) g/dL Albumin (3.5-5.0) g/dL 10/16/19 10/16/19 10/16/19 Range/Units 04:44 04:44 05:00 WBC 20.5 H (3.8-10.6) k/uL RBC 3.32 L (3.80-5.40) m/uL Hgb 9.9 L (11.4-16.0) gm/dL Hct 31.9 L (34.0-46.0) % RDW 18.3 H (11.5-15.5) % Plt Count 131 L (150-450) k/uL Neutrophils # (Manual) 17.40 H (1.3-7.7) k/uL Monocytes # (Manual) 1.03 H (0-1.0) k/uL Metamyelocytes # (Man) 0.21 H (0) k/uL Nucleated RBCs 23 H (0-0) /100 WBC ABG pCO2 34 L (35-45) mmHg ABG O2 Saturation 98.3 H (94-97) % Potassium 5.6 H (3.5-5.1) mmol/L Chloride 119 H (98-107) mmol/L BUN 32 H (7-17) mg/dL Glucose 179 H (74-99) mg/dL POC Glucose (mg/dL) (75-99) mg/dL Calcium 7.8 L (8.4-10.2) mg/dL AST 44 H (14-36) U/L Total Protein 3.1 L (6.3-8.2) g/dL Albumin 1.5 L (3.5-5.0) g/dL Microbiology - Last 24 Hours (Table) 10/11/19 18:15 Blood Culture - Preliminary Blood No Growth after 96 hours Assessment and Plan Plan: Assessment: #1. Acute hypoxic and hypercapnic respiratory failure requiring reintubation on 10/13/2019, multifactorial, related to pulmonary edema, acute on chronic systolic congestive heart failure and possibility of aspiration pneumonia and possibility of abdominal sepsis. #2. Status post partial gastrectomy and omentectomy for gastric bleeding, splenectomy, postoperative day #8 #3. Acute upper GI bleeding, most likely from the gastric mass, pathology was nondiagnostic for malignancy #4. Known history of coronary artery disease with previous coronary artery intervention and stenting #6. Known history of gastroparesis, previous biopsies were nondiagnostic #7. Acute on chronic anemia secondary to GI blood losses #8. 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 Chronic systolic CHF secondary to LV dysfunction #10. Paroxysmal atrial fibrillation, presently in normal sinus rhythm #11. History of multiple sclerosis #12. History of ventricular tachycardia and cardiac arrest #13. History of peripheral vessel occlusive disease #14. History of benign essential hypertension #15. History of fibromyalgia, degenerative joint disease, peripheral neuropathy #16. History of ESBL infection #17. 2 of anxiety and bipolar disorder #18. History of AICD placement #19. History ulcerative colitis and irritable bowel syndrome Plan: Continue same ventilator settings, we'll proceed with daily traction of sedation to assess mental status. Today's chest x-ray has been reviewed showing bilateral pleural effusions and bibasilar atelectasis, patient has developed generalized anasarca, however we have been unable to restart diuretics at this time related to hypotension. Continue with antibiotics per ID service recommendations. Continue nutritional support with TPN, no enteral feeding at this time per surgical recommendations. No signs of active bleeding at this time. Patient remains critically ill, and has not made significant progress in terms of weaning off the vasopressor support or ventilator support. Overall prognosis is extremely guarded, we have spoken to the family members regarding patient's condition, and patient's prognosis. At this time she remains a full code. We are told that they are contemplating possibility of palliative care/hospice. We'll continue supportive treatment for now. Overall prognosis is extremely guarded. I performed a history & physical examination of the patient and discussed their management with my nurse practitioner, Carmen Lambert. I reviewed the nurse practitioner's note and agree with the documented findings and plan of care. Lung sounds are positive for diminished breath sounds. The findings and the impression was discussed with the patient. I attest to the documentation by the nurse practitioner. Time with Patient: Greater than 30
[2019-10-16] MEDS ORDERED: FUROSEMIDE 10 MG/ML 4 ML VIAL IV STA (08:49)
[2019-10-16] MEDS ORDERED: FUROSEMIDE 10 MG/ML 4 ML VIAL ONE (08:52)
[2019-10-16] MEDS: ENOXAPARIN 60 MG/0.6 ML SYRINGE SQ SCH ×2 (08:53→19:53)
[2019-10-16] MEDS: LEVOTHYROXINE IVP 100 MCG/5 ML VIAL IV SCH (08:53)
[2019-10-16] MEDS: PANTOPRAZOLE 40 MG/10 ML VIAL IVP SCH ×2 (08:53→19:53)
[2019-10-16] MEDS: CHLORHEXIDINE GLUCONATE 15 ML CUP MUCOUS MEM SCH ×2 (08:53→19:52)
[2019-10-16] MEDS: ANIDULAFUNGIN 100 MG in SODIUM CHLORIDE 0.9% 100 ML IVPB SCH (08:53)
[2019-10-16] MEDS: metroNIDAZOLE-NS PMX 500 MG in SALINE 1 100ML.BAG IVPB SCH ×2 (08:54→18:50)
[2019-10-16] MEDS: CEFEPIME 2 GM in SODIUM CHLORIDE 0.9% 100 ML IVPB SCH ×2 (08:54→19:52)
[2019-10-16] MEDS: IPRATROPIUM-ALBUTEROL 3 ML NEB INHALATION SCH ×4 (08:57→19:41)
[2019-10-16 11:48] LABS: Glucose,Whole Blood 143 mg/dL (75-99)
[2019-10-16] MEDS: HYDROmorphone 1 MG/ML 1 ML SYRINGE IVP PRN ×2 (13:59→17:00)
[2019-10-16] MEDS ORDERED: LORazepam 2 MG/ML INJ IV PRN (14:09)
[2019-10-16] MEDS ORDERED: MORPHINE SULFATE 2 MG/ML SYRINGE IV PRN (14:09)
[2019-10-16] MEDS ORDERED: MORPHINE SULFATE 4 MG/ML SYRINGE ONE (14:15)
[2019-10-16] MEDS ORDERED: LORazepam 2 MG/ML INJ ONE (14:16)
--- NOTE | 2019-10-16 14:36 | P.PN ---
Subjective Progress Note Date: 10/16/19 Principal diagnosis: GI bleed The patient had reoperation last night for postoperative bleeding. She has been hematemesis stable overnight. Her hemoglobin has been stable at 12. She is currently on the ventilator. Patient has been extubated. She is awake. She has had issues with hypotension. She is currently receiving vasopressors. Her hemoglobin has been stable. The patient was reintubated yesterday. She has had significant ischemia of her right hand and toes. There is also ischemic changes to the skin on her abdominal wall. The patient's leukocytosis improved. Her overall condition remains unchanged. She was on a sedation holiday. She is arousable on the ventilator. Objective - Vital Signs Vital signs: Vital Signs Temp 96.8 F L 10/16/19 08:00 Pulse 71 10/16/19 09:17 Resp 31 H 10/16/19 09:00 BP 85/54 10/15/19 12:30 Pulse Ox 98 10/16/19 09:00 Intake & Output 10/15/19 10/16/19 10/16/19 18:59 06:59 18:59 Intake Total 6153.083 3757.138 651 Output Total 495 530 895 Balance 7339.560 2327.138 -244 Weight 71.4 kg 71.4 kg Intake: IV 926 576 461 Anidulafungin 100 mg In 100 100 Sodium Chloride 0.9% 100 ml @ 84 mls/hr IVPB DAILY SID Rx#:[id number] Cefepime 2 gm In Sodium 100 100 100 Chloride 0.9% 100 ml @ 200 mls/hr IVPB Q12HR SID Rx#:[id number] Mvi, Adult No.4 with Vit 250 K 10 ml Trace (Conc-1Ml/ Dose) 1 ml Potassium Chloride 60 meq Potassium Phosphate 10 mmol Magnesium Sulfate gm 1 gm In Amino Acid 5%-D15w+ Lytes*E* 1,000 ml @ 55 mls/hr IV .Q19H2M SID Rx# :[id number] Pressure Bag 36 36 21 Sodium Chloride 0.9% 1, 240 240 140 000 ml @ 20 mls/hr IV . Q24H SID Rx#:[id number] metroNIDAZOLE-NS PMX 500 200 200 100 mg In Saline 1 100ml.bag @ 100 mls/hr IVPB Q8HR SID Rx#:[id number] Intake, IV Titration 6977.924 4977.138 190 Amount Calcium Gluconate 1 gm In 100 Sodium Chloride 0.9% 100 ml @ 100 mls/hr IVPB ONCE ONE Rx#:[id number] Mvi, Adult No.4 with Vit 550 1513.333 50 K 10 ml Trace (Conc-1Ml/ Dose) 1 ml Potassium Chloride 60 meq Potassium Phosphate 10 mmol Magnesium Sulfate gm 1 gm In Amino Acid 5%-D15w+ Lytes*E* 1,000 ml @ 50 mls/hr IV .[id number] [facility] Rx #:[id number] Norepinephrine 8 mg In 145.805 Sodium Chloride 0.9% 250 ml @ 0.4 MCG/KG/MIN 51. 858 mls/hr IV .Q4H59M [facility] Rx#:[id number] Potassium Chloride 10 meq 200 In Water For Injection 1 100ml.bag @ 100 mls/hr IVPB Q1H SID Rx#: [id number] Propofol 1,000 mg In 164.417 100 100 Empty Bag 1 bag @ Titrate IV .Q0M [facility] Rx#: [id number] Sodium Chloride 0.9% 1, 40 000 ml @ 20 mls/hr IV . Q24H [facility] Rx#:[id number] Output: Urine 495 530 895 Other: Voiding Method Indwelling Catheter Indwelling Catheter ABP, PAP, CO, CI - Last Documented Arterial Blood Pressure 103/57 - Gastrointestinal Gastrointestinal Comment(s): Abdomen soft. There is evidence of skin necrosis along the incision. - Labs CBC & Chem 7: 10/16/19 04:44 10/16/19 04:44 Labs: Abnormal Lab Results - Last 24 Hours (Table) 10/15/19 10/15/19 10/16/19 Range/Units 17:07 23:34 04:44 WBC (3.8-10.6) k/uL RBC (3.80-5.40) m/uL Hgb (11.4-16.0) gm/dL Hct (34.0-46.0) % RDW (11.5-15.5) % Plt Count (150-450) k/uL Neutrophils # (Manual) (1.3-7.7) k/uL Monocytes # (Manual) (0-1.0) k/uL Metamyelocytes # (Man) (0) k/uL Nucleated RBCs (0-0) /100 WBC ABG pCO2 (35-45) mmHg ABG O2 Saturation (94-97) % Potassium 5.6 H (3.5-5.1) mmol/L Chloride 119 H (98-107) mmol/L BUN 32 H (7-17) mg/dL Glucose 179 H (74-99) mg/dL POC Glucose (mg/dL) 233 H 238 H (75-99) mg/dL Calcium 7.8 L (8.4-10.2) mg/dL AST 44 H (14-36) U/L Total Protein 3.1 L (6.3-8.2) g/dL Albumin 1.5 L (3.5-5.0) g/dL 10/16/19 10/16/19 10/16/19 Range/Units 04:44 05:00 11:45 WBC 20.5 H (3.8-10.6) k/uL RBC 3.32 L (3.80-5.40) m/uL Hgb 9.9 L (11.4-16.0) gm/dL Hct 31.9 L (34.0-46.0) % RDW 18.3 H (11.5-15.5) % Plt Count 131 L (150-450) k/uL Neutrophils # (Manual) 17.40 H (1.3-7.7) k/uL Monocytes # (Manual) 1.03 H (0-1.0) k/uL Metamyelocytes # (Man) 0.21 H (0) k/uL Nucleated RBCs 23 H (0-0) /100 WBC ABG pCO2 34 L (35-45) mmHg ABG O2 Saturation 98.3 H (94-97) % Potassium (3.5-5.1) mmol/L Chloride (98-107) mmol/L BUN (7-17) mg/dL Glucose (74-99) mg/dL POC Glucose (mg/dL) 143 H (75-99) mg/dL Calcium (8.4-10.2) mg/dL AST (14-36) U/L Total Protein (6.3-8.2) g/dL Albumin (3.5-5.0) g/dL Microbiology - Last 24 Hours (Table) 10/11/19 18:15 Blood Culture - Preliminary Blood No Growth after 96 hours Assessment and Plan Plan: Status post gastrectomy splenic vein with postoperative bleed. Patient will continue receive supportive care. She has had some slight improvement in her condition.
--- NOTE | 2019-10-16 15:57 | PN ---
PROGRESS NOTE DATE OF SERVICE: 10/16/2019 REASON FOR FOLLOWUP: Leukocytosis. INTERVAL HISTORY: The patient is currently afebrile. The patient is clinically stable and currently off the pressor support. The patient is undergoing a sedation holiday. She did have secretions through the ET, but no purulence has been noticed or any diarrhea reported by the nursing staff. PHYSICAL EXAMINATION: Blood pressure is 103/57, pulse of 71, temperature 96.8. She is 98% on 50% FiO2. General description is a middle-aged female lying in bed in no distress. RESPIRATORY SYSTEM: Unlabored breathing. Clear to auscultation anteriorly. HEART: S1, S2. Regular rate and rhythm. ABDOMEN: Soft. No tenderness. LABS: Hemoglobin 9.8, white count 20.5, BUN of 32, creatinine 0.56. Blood and sputum cultures have been negative so far. DIAGNOSTIC IMPRESSION AND PLAN: Patient with acute respiratory failure which is likely multifactorial with a significant elevated white count, possibly related to splenectomy. Underlying infection not entirely excluded. Patient is covered with cefepime, Flagyl and Eraxis; to continue. Will monitor clinical course closely. MMODL / IJN: [id number] /
[2019-10-16] MEDS ORDERED: MORPHINE SULFATE 2 MG/ML SYRINGE ONE ×2 (16:18→20:00)
[2019-10-16] MEDS: SODIUM CHLORIDE 0.9% 1,000 ML IV SCH (18:52)
[2019-10-16] MEDS ORDERED: MVI, ADULT NO.4 WITH VIT K 10 ML, TRACE (CONC-1ML/DOSE) 1 ML, MAGNESIUM SULFATE GM 1 GM... IV SCH ×4 (19:00)
[2019-10-16] MEDS ORDERED: INSULIN ASPART (NovoLOG) 100 UNIT/ML VIAL SQ ONE (20:00)
[2019-10-16] MEDS ORDERED: IPRATROPIUM-ALBUTEROL 3 ML NEB ONE (20:00)
[2019-10-16] MEDS ORDERED: HYDROmorphone 1 MG/ML 1 ML SYRINGE ONE (20:00)
--- NOTE | 2019-10-16 21:56 | P.PN ---
Progress Note - Text Progress Note Date: 10/16/19 Chief Complaint: Shortness of breath history of presenting complaint: This is a 63-year-old patient who follows with visiting physicians Dr. Vera.. Normally uses a wheelchair or a walker to get about. Chronic stable medical conditions include, coronary artery disease, COPD in an ex-smoker, chronic fibromyalgia, GERD, hyperlipidemia, essential hypertension, osteoarthritis, hypothyroid, chronic multiple sclerosis, peripheral neuropathy lower extremity, chronic urinary incontinence. Patient also was worked up at [facility] for a gastric greater curvature mass which eventually showed up to be normal smooth muscle cells. Also's chronic intermittent GI bleed from a gastric ulcer. Patient admitted to the hospital on August 06 with a diagnosis of bilateral lower extremity DVT. Could not tolerate IV heparin because of intermittent dark stools for some time. Did require blood transfusion. Colton filter was placed. Patient had repeated admissions for GI bleed. Getting blood transfusions. Continued to refuse endoscopy. Patient was now admitted 2 weeks ago again. On this occasion she agreed to proceed with endoscopy by Dr. Eliza Solis. Biopsy did come back showing gastric mucosa. She also consented for surgery. Patient now presents with shortness of breath. Continues to have dark stools. Hemoglobin came back at 5.1. Admitted to the ICU. Yesterday on October 07-patient was taken to the operating room. Partial gastrectomy and partial splenectomy was carried out. Patient was brought back to the ICU. Patient continued to have increasing bleeding for the ROSELIA drain. Became hypotensive. Patient received another 3 units of blood. Taken back to the operating room. Several oozing spors were noted around the staple site. Further suturing was carried out. Patient was returned to the ICU. Patient received a total of 7 units of blood. Patient's white count started to climb up. ID was consulted. Antibiotics were added. Patient went into respiratory distress on October 12. Intubated [id number]. Saw the patient this afternoon. FiO2 50 of PEEP of 5. Remains on propofol drip and norepinephrine. Atrial fibrillation. Lethargic. Review of systems: Patient intubated Current medications reviewed in today's electronic records Physical examination: VITAL SIGNS: 96.8, 67, 24, 05/04/1967, 99% on the ventilator GENERAL: Laying in bed,, intubated EYES: Pupils equal. Conjunctiva pale HEENT: Endotracheal tube in place. NECK: JVD unable to assess; masses not palpable. HEART: First and second heart sounds are normal; mild edema. LUNGS: Respiratory rate increased, decreased breath sounds. ABDOMEN: Soft, tender, dressing in place. ROSELIA drain-serosanguineous drainage, no guarding or rigidity, no masses palpable. PSYCH: Lethargic INVESTIGATIONS, reviewed in the clinical context: White count 20.5 hemoglobin 9.9 potassium 5.6 creatinine 0.56 Chest y-xcl-sgrdmawng infiltrates Previous testing: White count 8.7 hemoglobin 5.1 platelets 150 potassium 4.1 creatinine 0.65 lactic acid 2.3 Hemoglobin 8.7 on September 23 Assessment: -Acute on chronic GI bleed in a patient with known gastric mass - gastric mucosa per biopsy. Patient underwent partial gastrectomy and partial splenectomy on October 07. -Acute severe blood loss anemia from GI bleed, and postprocedure bleed-required a total of 7 units of blood -Acute hemorrhagic shock requiring norepinephrine -uncontrolled -Acute hypoxic respiratory failure on October 12-patient intubated-slow to respond -Paroxysmal atrial fibrillation new-onset on Cardizem drip- -Chronic lower extremity DVT -with Colton filter on 08/10/2019 -Gastric ulcer disease -Solitary gallstone, asymptomatic -Coronary artery disease -COPD in an ex-smoker -Chronic fibromyalgia -GERD -Hyperlipidemia -Essential hypertension -Primary osteoarthritis -Hypothyroid -Chronic multiple sclerosis -Peripheral neuropathy both the lower extremity -Chronic urinary incontinence -Chronic gait dysfunction uses a walker/wheelchair -Hypoalbuminemia-acute phase reactant. -Worsening leukocytosis plan: Patient's sister supposed to come in this afternoon. Possible [place] the patient comfort care/hospice. Continue current medication treatment plan. Patient continues to do poorly.
[2019-10-17] MEDS ORDERED: HYDROmorphone 1 MG/ML 1 ML SYRINGE ONE (00:40)
[2019-10-17] MEDS: IPRATROPIUM-ALBUTEROL 3 ML NEB INHALATION SCH (04:34)
[2019-10-17] MEDS: MORPHINE SULFATE (100 MG/2 ML) 100 MG in SODIUM CHLORIDE 0.9% 100 ML IV SCH ×2 (05:56→10:57)
[2019-10-17] MEDS: SODIUM CHLORIDE 0.9% 1,000 ML IV SCH ×3 (05:57→12:57)
--- NOTE | 2019-10-17 11:57 | P.PN ---
Progress Note - Text Progress Note Date: 10/17/19 Patient was made comfort care yesterday afternoon. Patient's condition continued to deteriorate. She is receiving comfort care measures now.
[2019-10-17] MEDS: CHLORHEXIDINE GLUCONATE 15 ML CUP MUCOUS MEM SCH (12:54)
[2019-10-17] MEDS: FUROSEMIDE 10 MG/ML 4 ML VIAL IV SCH (13:16)
[2019-10-18 03:33] VITALS: RESP 10; TEMP 96.8
[2019-10-18 03:51] VITALS: BMI 28.8
[2019-10-18 08:46] VITALS: BP 46/34
--- NOTE | 2019-10-19 23:43 | P.DS ---
Providers Date of admission: 10/07/19 01:21 Expected date of discharge: 10/17/19 Attending physician: Adolfo Bay Consults: 10/07/19 01:21 Consult Physician Stat Consulting Provider: Fabiola Driver Consult Reason/Comments: acute UGIB, hx gastric mass Do you want consulting provider notified?: Already Contacted 10/07/19 09:59 Consult Physician Urgent Consulting Provider: Tien Chauhan Consult Reason/Comments: benign gastric mass with bleeding Do you want consulting provider notified?: Yes 10/07/19 15:13 Consult Physician Stat Consulting Provider: Kamaljit Dinh Consult Reason/Comments: Bilateral DVT Do you want consulting provider notified?: Already Contacted 10/07/19 15:16 Consult Physician Stat Consulting Provider: Kamaljit Dinh Consult Reason/Comments: ivc filter Do you want consulting provider notified?: Yes 10/11/19 10:04 Consult Physician Routine Consulting Provider: Ame Baca Consult Reason/Comments: s\p spleenectomy Do you want consulting provider notified?: Yes Primary care physician: Alexei Vera MD Hospital Course: Chief Complaint: Shortness of breath history of presenting complaint: This is a 63-year-old patient who follows with visiting physicians Dr. Vera.. Normally uses a wheelchair or a walker to get about. Chronic stable medical conditions include, coronary artery disease, COPD in an ex-smoker, chronic fibromyalgia, GERD, hyperlipidemia, essential hypertension, osteoarthritis, hypothyroid, chronic multiple sclerosis, peripheral neuropathy lower extremity, chronic urinary incontinence. Patient also was worked up at [facility] for a gastric greater curvature mass which eventually showed up to be normal smooth muscle cells. Also's chronic intermittent GI bleed from a gastric ulcer. Patient admitted to the hospital on August 06 with a diagnosis of bilateral lower extremity DVT. Could not tolerate IV heparin because of intermittent dark stools for some time. Did require blood transfusion. Colton filter was placed. Patient had repeated admissions for GI bleed. Getting blood transfusions. Continued to refuse endoscopy. Patient was now admitted 2 weeks ago again. On this occasion she agreed to proceed with endoscopy by Dr. Eliza Solis. Biopsy did come back showing gastric mucosa. She also consented for surgery. Patient now presents with shortness of breath. Continues to have dark stools. Hemoglobin came back at 5.1. Admitted to the ICU. Yesterday on October 07-patient was taken to the operating room. Partial gastrectomy and partial splenectomy was carried out. Patient was brought back to the ICU. Patient continued to have increasing bleeding for the ROSELIA drain. Became hypotensive. Patient received another 3 units of blood. Taken back to the operating room. Several oozing spors were noted around the staple site. Further suturing was carried out. Patient was returned to the ICU. Patient received a total of 7 units of blood. Patient's white count started to climb up. ID was consulted. Antibiotics were added. Patient went into respiratory distress on October 12. Intubated. Spoke to patient's sister at length She agreed to proceed with comfort care. Today-patient be discharged to [facility] for comfort care. Discussed with the hospice nurse. Discussion and discharge planning more than 35 minutes Consultation: Dr. Chauhan from general surgery Dr. Baca from ID Dr. Monet from customs director Dr. Ulloa from vascular surgery Physical examination: VITAL SIGNS: Noted GENERAL: Laying in bed,, lethargic EYES: Pupils equal. Conjunctiva pale HEART: First and second heart sounds are normal; mild edema. LUNGS: Respiratory rate increased, decreased breath sounds. PSYCH: Lethargic INVESTIGATIONS, reviewed in the clinical context: White count 20.5 hemoglobin 9.9 potassium 5.6 creatinine 0.56 Chest m-ffz-ehufboxdu infiltrates Previous testing: White count 8.7 hemoglobin 5.1 platelets 150 potassium 4.1 creatinine 0.65 lactic acid 2.3 Hemoglobin 8.7 on September 23 Assessment: -Acute on chronic GI bleed in a patient with known gastric mass - gastric mucosa per biopsy. Patient underwent partial gastrectomy and partial splenectomy on October 07. -Acute severe blood loss anemia from GI bleed, and postprocedure bleed-required a total of 7 units of blood -Acute hemorrhagic shock requiring norepinephrine -uncontrolled -Acute hypoxic respiratory failure on October 12-patient intubated-slow to respond -Paroxysmal atrial fibrillation new-onset on Cardizem drip- -Chronic lower extremity DVT -with [place] filter on 08/10/2019 -Gastric ulcer disease -Solitary gallstone, asymptomatic -Coronary artery disease -COPD in an ex-smoker -Chronic fibromyalgia -GERD -Hyperlipidemia -Essential hypertension -Primary osteoarthritis -Hypothyroid -Chronic multiple sclerosis -Peripheral neuropathy both the lower extremity -Chronic urinary incontinence -Chronic gait dysfunction uses a walker/wheelchair -Hypoalbuminemia-acute phase reactant. -Worsening leukocytosis Disposition: Admitted to [facility] for comfort measures Patient Condition at Discharge: Poor Plan - Discharge Summary New Discharge Prescriptions: No Action Folic Acid 1 mg PO DAILY Thiamine [Vitamin B-1] 100 mg PO DAILY Cholecalciferol (Vitamin D3) [Vitamin D3] 2,000 unit PO DAILY Ferrous Sulfate [Iron (65 MG Elemental)] 325 mg PO BID Levothyroxine Sodium [Synthroid] 100 mcg PO DAILY Atorvastatin [Lipitor] 40 mg PO DAILY #30 tab Isosorbide Mononitrate ER [Imdur] 30 mg PO DAILY Omeprazole 40 mg PO BID Albuterol Sulfate [Proair Hfa] 2 puff INHALATION RT-QID PRN PRN Reason: Shortness Of Breath Gabapentin [Neurontin] 300 mg PO TID #9 cap Baclofen [Lioresal] 20 mg PO TID PRN PRN Reason: Muscle Spasm Cyanocobalamin [Vitamin B-12] 1,000 mcg PO DAILY #30 tab Albuterol Nebulized [Ventolin Nebulized] 2.5 mg INHALATION RT-QID PRN PRN Reason: Shortness Of Breath Amiodarone HCl [Pacerone] 100 mg PO DAILY Ipratropium-Albuterol Nebulize [Duoneb 0.5 mg-3 mg/3 ml Soln] 3 ml INHALATION RT-Q4H oxyCODONE-APAP 5-325MG [Percocet 5-325 mg] 1 tab PO Q8H PRN PRN Reason: Pain ARIPiprazole [Abilify] 10 mg PO DAILY Citalopram Hydrobromide [CeleXA] 20 mg PO DAILY Fexofenadine HCl [Genet Allergy] 180 mg PO DAILY LORazepam [Ativan] 0.5 mg PO Q4H PRN PRN Reason: Anxiety MORPHINE ORAL CK CONC 20mg/mL [Roxanol Oral Soln Conc 20MG/ML] 5 mg PO Q4H PRN PRN Reason: Pain Haloperidol Oral Soln [Haldol Oral Soln] 1 mg PO Q6H PRN PRN Reason: Agitation Discharge Medication List Folic Acid 1 mg PO DAILY 04/08/14 [History] Thiamine [Vitamin B-1] 100 mg PO DAILY 04/13/15 [History] Cholecalciferol (Vitamin D3) [Vitamin D3] 2,000 unit PO DAILY 09/27/18 [History] Ferrous Sulfate [Iron (65 MG Elemental)] 325 mg PO BID 09/27/18 [History] Levothyroxine Sodium [Synthroid] 100 mcg PO DAILY 09/27/18 [History] Atorvastatin [Lipitor] 40 mg PO DAILY #30 tab 09/28/18 [Rx] Isosorbide Mononitrate ER [Imdur] 30 mg PO DAILY 02/06/19 [History] Albuterol Sulfate [Proair Hfa] 2 puff INHALATION RT-QID PRN 03/16/19 [History] Omeprazole 40 mg PO BID 03/16/19 [History] Gabapentin [Neurontin] 300 mg PO TID #9 cap 04/02/19 [Rx] Baclofen [Lioresal] 20 mg PO TID PRN 08/07/19 [History] Cyanocobalamin [Vitamin B-12] 1,000 mcg PO DAILY #30 tab 08/11/19 [Rx] Albuterol Nebulized [Ventolin Nebulized] 2.5 mg INHALATION RT-QID PRN 09/06/19 [History] Amiodarone HCl [Pacerone] 100 mg PO DAILY 09/06/19 [History] Ipratropium-Albuterol Nebulize [Duoneb 0.5 mg-3 mg/3 ml Soln] 3 ml INHALATION RT-Q4H 09/06/19 [History] oxyCODONE-APAP 5-325MG [Percocet 5-325 mg] 1 tab PO Q8H PRN 09/06/19 [History] ARIPiprazole [Abilify] 10 mg PO DAILY 09/07/19 [History] Citalopram Hydrobromide [CeleXA] 20 mg PO DAILY 09/07/19 [History] Fexofenadine HCl [Genet Allergy] 180 mg PO DAILY 09/15/19 [History] Haloperidol Oral Soln [Haldol Oral Soln] 1 mg PO Q6H PRN 10/07/19 [History] LORazepam [Ativan] 0.5 mg PO Q4H PRN 10/07/19 [History] MORPHINE ORAL CK CONC 20mg/mL [Roxanol Oral Soln Conc 20MG/ML] 5 mg PO Q4H PRN 10/07/19 [History] Follow up Appointment(s)/Referral(s): Alexei Vera MD [Primary Care Provider] - 1-2 days Discharge Disposition: HOME WITH HOSPICE
--- NOTE | 2019-10-23 13:45 | P.OP ---
Date of Procedure: 10/08/19 Preoperative Diagnosis: GI bleed Postoperative Diagnosis: GI bleed Procedure(s) Performed: Partial gastrectomy Splenectomy Anesthesia: FRDEA Surgeon: Tien Chauhan Estimated Blood Loss (ml): 200 Pathology: other (Stomach, spleen) Condition: stable Disposition: ICU Description of Procedure: The patient's placed on the operative table in the supine position. She received general anesthesia. Her abdomen was prepped and draped usual fashion. The abdomen was entered through an upper midline incision. The Bookwalter tract with wound. The stomach was visualized. The appeared to be some scarring around the stomach. The omentum was dissected off of the greater curvature st omach in the lesser sac was entered. There were adhesions in the lesser sac. The adhesions were lysed with sharp dissection. There were significant adhesions around the spleen and stomach. It was decided to perform a splenectomy in order to fully mobilize the fundus of the stomach. At this point the short gastrics were divided using the Enseal device and the greater curvature stomach was fully dissected. The spleen was then brought into the wound by rotating the spleen medially and then the hilum of the spleen was clamped with 2 Angelina clamps and then divided. The splenic artery and splenic vein were ligated individually. The hilum was then ligated using 0 silk ties. The specimen sent to pathology. The greater curvature stomach was mobilized. And then a enterotomy was made in the stomach and the stomach was visualized. Digital palpation was able to find the area of the gastric lesion. At this point using the powered echelon stapler the gastrectomy was performed. A 40-British bougie dilator was placed into the stomach and then the gastrectomy performed by dividing the stomach with the powered echelon stapler. Sequential firings of the stapler device were performed. The specimen was then sent to pathology. This point the abdomen was irrigated there is no bleeding seen. The splenic ties were examined and appeared to be no evidence of any bleeding. A ROSELIA drain was placed along the gastric staple line brought through separate stab incision. The abdomen was irrigated no bleeding seen. The fascia was then closed with looped #1 PDS suture. Skin was closed bernardo. Patient was sent to the ICU in stable condition
--- NOTE | 2019-10-25 11:22 | CDI ---
Documentation Clarification Form Date: 10/25/2019 10:57:03 AM From: Yvette Friedman CCS, CCDS Admit Date: 10/07/2019 01:21:00 AM Patient Name: Akiko Grimaldo Visit Number: [id number] Discharge Date: 10/17/2019 11:13:00 PM ATTENTION: The Clinical Documentation Specialists (CDI) and [facility] Coding Staff appreciate your assistance in clarifying documentation. Please respond to the clarification below the line at the bottom and electronically sign. The CDI & [facility] Coding staff will review the response and follow-up if needed. Please note: Queries are made part of the Legal Health Record. If you have any questions, please contact the author of this message via ITS. Dr. Tien Chauhan: Per the 10/08 Surgery Progress Note: "The patient had re-operation last night for post-operative bleeding." Per the 10/18 Discharge Summary: "Acute severe blood loss anemia from GI bleed and postprocedure bleed - required a total of 7 units of blood." Patients Admitting Diagnosis: Acute on chronic GI bleed in a patient with known gastric pass coming back showing gastric mucosa per biopsy. Acute severe blood loss anemia from GI bleed, symptomatic-ordered 2 units of blood. Chronic lower extremity DVT with Colton filter on 08/10/2019. Gastric ulcer disease. Intra-abdominal gastric mass, workup done at [facility]. Biopsy showing smooth muscle mass, also repeat biopsy done here showing the same. 10/07 Preoperative Diagnosis: GI Bleed Post-Operative Diagnosis: GI Bleed Procedure: Partial Gastrectomy, Splenectomy. 10/07 Return to OR: Procedure Preoperative Diagnosis: Postoperative Hemorrhage Post-Operative Diagnosis: Postoperative hemorrhage from diffuse bleeding. Procedure performed: Exploratory laparotomy & washout of peritoneal cavity. History/Risk Factors: Chronic GI Bleed with known Gastric Ulcer, Chronic lower extremity DVT w/Colton filter placed 08/2019, Solitary gallstone: asymptomatic. Multiple Sclerosis. Clinical Indicators: Presented to the ED on 10/06 with SOB & dark stools with Hgb 5.1. Hgb 10/05: 5.1, 10/06: 7.5*, 10/07: 7.3*-10.6-7.8*-12.6; 10/08-10/10: stable; 7.: 10.7*; 10/12: 10.4*; 10/13 & 10/14: 8.3*, 10/15: 9.8* Hct 10/05: 16.8; 10/06: 24.3*; 10/07: 23.5-25.3*-37.8; 10/08-10/09: stable; 10/10: 33.0*, 10/11: 32.4*; 10/12: 30.6*; 10/13: 29.9*; 10/14: 30.2*; 10/15: 31.9* Treatment: OR procedures as above. 10/09 A line & triple lumen cath, patient went into acute hypoxic respiratory failure & was intubated in ICU. Blood Transfusions: 10/06: 2 units PRBCs, 10/07: 5 units PRBCs, 10/07: 2 units FFP Patient was discharged to comfort care. In order to accurately reflect this patients severity of illness, please clarify if the postoperative bleeding: is a complication of surgical procedure is an expected outcome of the surgical procedure is related to co-morbid condition(s) of Other please specify: Unable to determine [place] Revision: May 2019) Postoperative bleeding is a consultation surgical procedure MTDD
--- NOTE | 2019-10-28 08:35 | CDI ---
Documentation Clarification Form Date: 10/25/2019 10:57:00 AM From: Yvette FriedmanJACKIE sun, CCDS Admit Date: 10/07/2019 01:21:00 AM Patient Name: Akiko Grimaldo Visit Number: [id number] Discharge Date: 10/17/2019 11:13:00 PM ATTENTION: The Clinical Documentation Specialists (CDI) and [facility] Coding Staff appreciate your assistance in clarifying documentation. Please respond to the clarification below the line at the bottom and electronically sign. The CDI & [facility] Coding staff will review the response and follow-up if needed. Please note: Queries are made part of the Legal Health Record. If you have any questions, please contact the author of this message via ITS. Dr. Tien Chauhan: Thank you for responding to this query. Unfortunately, your response does not clarify the postoperative bleeding as an expected or unexpected outcome of the surgical procedure. Per the 10/08 Surgery Progress Note: "The patient had re-operation last night for post-operative bleeding." Per the 10/18 Discharge Summary: "Acute severe blood loss anemia from GI bleed and postprocedure bleed - required a total of 7 units of blood." Patients Admitting Diagnosis: Acute on chronic GI bleed in a patient with known gastric pass coming back showing gastric mucosa per biopsy. Acute severe blood loss anemia from GI bleed, symptomatic-ordered 2 units of blood. Chronic lower extremity DVT with Colton filter on 08/10/2019. Gastric ulcer disease. Intra-abdominal gastric mass, workup done at [facility]. Biopsy showing smooth muscle mass, also repeat biopsy done here showing the same. 10/07 Preoperative Diagnosis: GI Bleed Post-Operative Diagnosis: GI Bleed Procedure: Partial Gastrectomy, Splenectomy. 10/07 Return to OR: Procedure Preoperative Diagnosis: Postoperative Hemorrhage Post-Operative Diagnosis: Postoperative hemorrhage from diffuse bleeding. Procedure performed: Exploratory laparotomy & washout of peritoneal cavity. History/Risk Factors: Chronic GI Bleed with known Gastric Ulcer, Chronic lower extremity DVT w/Colton filter placed 08/2019, Solitary gallstone, asymptomatic, CAD, COPD, Former Smoker, Chronic Fibromyalgia, GERD, Hyperlipidemia, Hypertension, Hypothyroid, OA, Chronic Multiple Sclerosis, Peripheral Neuropathy Bilateral Lower Extremity. Clinical Indicators: Presented to the ED on 10/06 with SOB & dark stools with Hgb 5.1. Hgb 10/05: 5.1, 10/06: 7.5*, 10/07: 7.3*-10.6-7.8*-12.6; 10/08-10/10: stable; 7.: 10.7*; 10/12: 10.4*; 10/13 & 10/14: 8.3*, 10/15: 9.8* Hct 10/05: 16.8; 10/06: 24.3*; 10/07: 23.5-25.3*-37.8; 10/08-10/09: stable; 10/10: 33.0*, 10/11: 32.4*; 10/12: 30.6*; 10/13: 29.9*; 10/14: 30.2*; 10/15: 31.9* Treatment: OR procedures as above. 10/09 A line & triple lumen cath, patient went into acute hypoxic respiratory failure & was intubated in ICU. Blood Transfusions: 10/06: 2 units PRBCs, 10/07: 5 units PRBCs, 10/07: 2 units FFP Patient was discharged to comfort care. In order to accurately reflect this patients severity of illness, please clarify if the postoperative bleeding: is a complication of surgical procedure is an expected outcome of the surgical procedure is related to co-morbid condition(s) of Other please specify: Unable to determine (Last Revision: May 2019) Unexpected complication of the surgical procedure MTDD
== END 2019-10-17 23:13 | disposition hospice, inpatient (51) | DRG 326 ==
LOC: EC 22:11 → 2SICU 10-07 01:21 → 5NMEDONC 10-17 11:28
PROVIDERS: ADMIT Hospitalist; ATTEND Hospitalist
PROC: 05HB33Z Insertion of Infusion Device into Right Basilic Vein, Percutaneous Approach (ICD-10-PCS; 2019-10-07)
PROC: 30233N1 Transfusion of Nonautologous Red Blood Cells into Peripheral Vein, Percutaneous Approach (ICD-10-PCS; 2019-10-07)
PROC: 0DBU0ZZ Excision of Omentum, Open Approach (ICD-10-PCS; 2019-10-08)
PROC: 07TP0ZZ Resection of Spleen, Open Approach (ICD-10-PCS; 2019-10-08)
PROC: 0WJG0ZZ Inspection of Peritoneal Cavity, Open Approach (ICD-10-PCS; 2019-10-08)
PROC: 3E1M38Z Irrigation of Peritoneal Cavity using Irrigating Substance, Percutaneous Approach (ICD-10-PCS; 2019-10-08)
PROC: 30233K1 Transfusion of Nonautologous Frozen Plasma into Peripheral Vein, Percutaneous Approach (ICD-10-PCS; 2019-10-08)
PROC: 0DB60ZZ Excision of Stomach, Open Approach (ICD-10-PCS; principal; 2019-10-08 11:55)
PROC: 04HY32Z Insertion of Monitoring Device into Lower Artery, Percutaneous Approach (ICD-10-PCS; 2019-10-10)
PROC: 4A133B1 Monitoring of Arterial Pressure, Peripheral, Percutaneous Approach (ICD-10-PCS; 2019-10-10)
PROC: 4A133J1 Monitoring of Arterial Pulse, Peripheral, Percutaneous Approach (ICD-10-PCS; 2019-10-10)
PROC: 06HM33Z Insertion of Infusion Device into Right Femoral Vein, Percutaneous Approach (ICD-10-PCS; 2019-10-10)
PROC: 5A1945Z Respiratory Ventilation, 24-96 Consecutive Hours (ICD-10-PCS; 2019-10-13)
PROC: 0BH17EZ Insertion of Endotracheal Airway into Trachea, Via Natural or Artificial Opening (ICD-10-PCS; 2019-10-13)
PROC: 3E043XZ Introduction of Vasopressor into Central Vein, Percutaneous Approach (ICD-10-PCS; 2019-10-16)
DX: K25.4 Chronic or unspecified gastric ulcer with hemorrhage (principal); I50.23 Acute on chronic systolic (congestive) heart failure; J69.0 Pneumonitis due to inhalation of food and vomit; J96.21 Acute and chronic respiratory failure with hypoxia; J96.22 Acute and chronic respiratory failure with hypercapnia; R57.8 Other shock; D62 Acute posthemorrhagic anemia; E87.2 Acidosis; I42.9 Cardiomyopathy, unspecified; J98.11 Atelectasis; K51.90 Ulcerative colitis, unspecified, without complications; L03.115 Cellulitis of right lower limb; L03.116 Cellulitis of left lower limb; E03.9 Hypothyroidism, unspecified; K66.0 Peritoneal adhesions (postprocedural) (postinfection); E78.5 Hyperlipidemia, unspecified; Z66 Do not resuscitate; Z51.5 Encounter for palliative care; K91.840 Postprocedural hemorrhage of a digestive system organ or structure following a digestive system procedure; Z11.59 Encounter for screening for other viral diseases; Z86.74 Personal history of sudden cardiac arrest; J44.9 Chronic obstructive pulmonary disease, unspecified; I11.0 Hypertensive heart disease with heart failure; G35 Multiple sclerosis; Z99.81 Dependence on supplemental oxygen; F31.9 Bipolar disorder, unspecified; F41.0 Panic disorder [episodic paroxysmal anxiety]; G62.9 Polyneuropathy, unspecified; I07.1 Rheumatic tricuspid insufficiency; D72.828 Other elevated white blood cell count; I25.10 Atherosclerotic heart disease of native coronary artery without angina pectoris; I25.2 Old myocardial infarction; I48.0 Paroxysmal atrial fibrillation; I73.89 Other specified peripheral vascular diseases; Z86.718 Personal history of other venous thrombosis and embolism; Z79.01 Long term (current) use of anticoagulants; I99.8 Other disorder of circulatory system; K21.9 Gastro-esophageal reflux disease without esophagitis; K31.84 Gastroparesis; K80.20 Calculus of gallbladder without cholecystitis without obstruction; M19.91 Primary osteoarthritis, unspecified site; M79.7 Fibromyalgia; R32 Unspecified urinary incontinence; Z74.01 Bed confinement status; Z90.49 Acquired absence of other specified parts of digestive tract; Z87.01 Personal history of pneumonia (recurrent); Z98.42 Cataract extraction status, left eye; Z98.41 Cataract extraction status, right eye; Z88.0 Allergy status to penicillin; Z86.010 Personal history of colon polyps; K31.7 Polyp of stomach and duodenum; Z79.890 Hormone replacement therapy; Z79.899 Other long term (current) drug therapy; Z82.49 Family history of ischemic heart disease and other diseases of the circulatory system; Z86.19 Personal history of other infectious and parasitic diseases; Z86.79 Personal history of other diseases of the circulatory system; Z87.891 Personal history of nicotine dependence; Z95.810 Presence of automatic (implantable) cardiac defibrillator; Z95.828 Presence of other vascular implants and grafts; Z95.5 Presence of coronary angioplasty implant and graft
CPT/HCPCS: 36410; 36415; 36430; 36600; 71045; 71046; 76937; 80048; 80053; 81001; 82272; 82330; 82805; 83605; 83735; 83880; 84100; 84132; 84478; 84484; 85025; 85027; 85379; 85610; 85730; 86140; 86850; 86900; 86901; 86920; 87040; 87070; 87205; 88305; 88307; 88313; 88341; 88342; 93005; 93970; 94002; 94003; 94640; 94660; 99291

== ENCOUNTER 2019-10-17 12:18 | Inpatient (IN) | payer MEDICAID, OTHER ==
[2019-10-17] MEDS ORDERED: ACETAMINOPHEN SUPPOSITORY 650 MG SUPP RECTAL PRN (13:16)
[2019-10-17] MEDS ORDERED: ATROPINE OPHTH SOLN 1% 5ML BTL SUBLINGUAL PRN (13:16)
[2019-10-17] MEDS ORDERED: LORazepam 2 MG/ML INJ IV PRN (13:16)
[2019-10-18] MEDS: MORPHINE SULFATE (100 MG/2 ML) 100 MG in SODIUM CHLORIDE 0.9% 100 ML IV SCH ×2 (04:34→09:24)
[2019-10-18 10:35] VITALS: PULSE 62; RESP 10
[2019-10-18 10:40] VITALS: BP 46/34
--- NOTE | 2019-10-20 08:45 | DS ---
DISCHARGE SUMMARY DATE OF ADMISSION: 10/17/2019. DATE : 10/18/2019 HOSPITAL COURSE: This patient was admitted for comfort care under [facility]. On a morphine drip. The patient succumbed to the underlying condition. CAUSE OF : Pneumonia. MMODL / IJN: [id number] /
== END 2019-10-18 21:30 | disposition expired | DRG 951 ==
LOC: 5NMEDONC 23:17
PROVIDERS: ADMIT Hospitalist; ATTEND Hospitalist
DX: Z51.5 Encounter for palliative care (principal); J18.9 Pneumonia, unspecified organism; Z66 Do not resuscitate; Z88.0 Allergy status to penicillin